=== PATIENT | male | born 1935 | race Caucasian/White ===

== ENCOUNTER 2016-10-05 14:18 | Emergency (ER) | payer MEDICARE ==
[2016-10-05 16:05] VITALS: RESP 16
--- NOTE | 2016-10-05 16:15 | ED ---
General Adult HPI - General Chief complaint: Extremity Injury, Lower Stated complaint: POSS BLOODCLOT RT LEG Time Seen by Provider: 10/05/16 15:18 Source: patient, RN notes reviewed, old records reviewed Mode of arrival: ambulatory Limitations: no limitations - History of Present Illness Initial comments: This is an 81-year-old man to the ER for evaluation. The patient Marcia dose of right lower extremity pain and swelling. Patient was seen in the emergency center urgent care prior to arrival to ER. Patient states he noted swelling for about 3 days with pain increased pain and swelling today. No history of DVT - Related Data Home Medications Medication Instructions Recorded Confirmed Albuterol Sulfate [Proair Hfa] 2 puff INHALATION RT-Q6H PRN 07/10/15 10/05/16 Simvastatin [Zocor] 40 mg PO DAILY 07/10/15 10/05/16 Ipratropium-Albuterol Nebulize 3 ml INHALATION RT-QID 07/11/15 10/05/16 [Duoneb 0.5 mg-3 mg/3 ml Soln] Fluticasone/Vilanterol [Breo 1 puff INHALATION RT-DAILY 10/05/16 10/05/16 Ellipta 200-25 Mcg INH] Lisinopril/Hydrochlorothiazide 1 tab PO DAILY 10/05/16 10/05/16 [Zestoretic 20-12.5 mg Tablet] predniSONE 5 mg PO DAILY 10/05/16 10/05/16 Previous Rx's Medication Instructions Recorded Apixaban [Eliquis] 5 mg PO BID #28 tab 10/05/16 Apixaban [Eliquis] 5 mg PO DAILY #30 tablet 10/05/16 Allergies Allergy/AdvReac Type Severity Reaction Status Date / Time No Known Allergies Allergy Verified 10/05/16 16:14 Review of Systems ROS Statement: Those systems with pertinent positive or pertinent negative responses have been documented in the HPI. ROS Other: All systems not noted in ROS Statement are negative. Past Medical History Past Medical History: COPD, Hearing Disorder / Deafness, Hyperlipidemia, Osteoarthritis (OA), Pneumonia Additional Past Medical History / Comment(s): 07/15/15 Pt presented to [facility] ER via EMS with having started about 2 hours before presentation some L sided chest pain. He thought it felt like heart burn so he took tums without relief. He called EMS and pain subsided. Pain then returned and EMS gave NTG with relief. Pt was wheezing and having some PAPO. He is being admitted with clinical impression of unstable angina pectoris, renal insufficiency, elevated D -dimer and pancreatitis. Pt was recently admitted to [facility] on 07/10/15 with acute exacerbation COPD, purulent tracheobronchitis, chronic bronchitis. Other HX: hard of hearing in left ear, OA, back pain, pneumonia 2010, recent home O2 at 2L/NC. History of Any Multi-Drug Resistant Organisms: None Reported Past Surgical History: Tonsillectomy Additional Past Surgical History / Comment(s): vasectomy Past Anesthesia/Blood Transfusion Reactions: No Reported Reaction Past Psychological History: No Psychological Hx Reported Additional Psychological History / Comment(s): Pt resides with his spouse. He has a nebulizer. He just had home O2 delivered last nite and has been wearing it on and off at 2L/NC Smoking Status: Former smoker Past Alcohol Use History: Occasional Additional Past Alcohol Use History / Comment(s): Pt started smoking in 1954 and quit in 1999. He at one time was smoking 2-3 ppd. Past Drug Use History: None Reported - Past Family History Father Family Medical History: Cancer Additional Family Medical History / Comment(s): cancer. client reported father had scoliosis. Mother Additional Family Medical History / Comment(s): mother . unknown history General Exam Limitations: no limitations General appearance: alert, in no apparent distress Head exam: Present: atraumatic, normocephalic, normal inspection Eye exam: Present: normal appearance, PERRL, EOMI. Absent: scleral icterus, conjunctival injection, periorbital swelling ENT exam: Present: normal exam, mucous membranes moist Neck exam: Present: normal inspection. Absent: tenderness, meningismus, lymphadenopathy Respiratory exam: Present: normal lung sounds bilaterally. Absent: respiratory distress, wheezes, rales, rhonchi, stridor Cardiovascular Exam: Present: regular rate, normal rhythm, normal heart sounds. Absent: systolic murmur, diastolic murmur, rubs, gallop, clicks GI/Abdominal exam: Present: soft, normal bowel sounds. Absent: distended, tenderness, guarding, rebound, rigid Extremities exam: Present: normal inspection, full ROM, normal capillary refill. Absent: tenderness, pedal edema, joint swelling, calf tenderness Back exam: Present: normal inspection Neurological exam: Present: alert, oriented X3, CN II-XII intact Psychiatric exam: Present: normal affect, normal mood Skin exam: Present: warm, dry, intact, normal color. Absent: rash Course Vital Signs 10/05/16 15:59 Temperature 97.6 F Pulse Rate 60 Respiratory 16 Rate Blood Pressure 136/60 O2 Sat by Pulse 98 Oximetry Medical Decision Making - Medical Decision Making A 1 Amber with positive DVT, patient given Vince Piper, discharge: Jossie to follow up with primary care, patient is understanding and agreeable - Radiology Data Radiology results: report reviewed (Ultrasound is positive for DVT), image reviewed Disposition Clinical Impression: Right leg DVT Disposition: HOME SELF-CARE Condition: Good Instructions: Deep Venous Thrombosis (ED) Prescriptions: Apixaban [Eliquis] 5 mg PO BID #28 tab Apixaban [Eliquis] 5 mg PO DAILY #30 tablet Referrals: Lobo Elizabeth MD [Primary Care Provider] - 1-2 days
--- NOTE | 2016-10-05 16:37 | US ---
EXAMINATION TYPE: US venous doppler duplex LE RT DATE OF EXAM: 10/05/2016 4:31 PM COMPARISON: Previous study CLINICAL HISTORY: Pain. Tenderness right lower leg SIDE PERFORMED: Right VESSELS IMAGED: External Iliac Vein (EIV) Common Femoral Vein Deep Femoral Vein Greater Saphenous Vein * Femoral Vein Popliteal Vein Small Saphenous Vein * Proximal Calf Veins (* superficial vessels) Right Leg: ++Positive for DVT right lower popliteal vein No popliteal fossa lesion was identified. IMPRESSION:
[2016-10-05] MEDS ORDERED: APIXABAN 5 MG TAB PO STA (17:10)
[2016-10-05 17:58] VITALS: BP 173/82; PULSE 62; TEMP 97.8
== END 2016-10-05 17:55 | disposition home or self-care (01) ==
LOC: EC 14:18
DX: I82.431 Acute embolism and thrombosis of right popliteal vein (principal); E78.5 Hyperlipidemia, unspecified; J44.9 Chronic obstructive pulmonary disease, unspecified; Z87.891 Personal history of nicotine dependence; M19.90 Unspecified osteoarthritis, unspecified site; Z79.51 Long term (current) use of inhaled steroids; Z79.899 Other long term (current) drug therapy; Z79.52 Long term (current) use of systemic steroids; Z87.01 Personal history of pneumonia (recurrent)
CPT/HCPCS: 99284

== ENCOUNTER 2016-12-01 09:18 | Emergency (ER) | payer MEDICARE ==
[2016-12-01 09:27] VITALS: TEMP 97.2
--- NOTE | 2016-12-01 10:19 | ED ---
General Adult HPI - General Chief complaint: Urogenital Stated complaint: hematuria Time Seen by Provider: 12/01/16 09:45 Source: patient, family, RN notes reviewed Mode of arrival: ambulatory Limitations: no limitations - History of Present Illness Initial comments: Patient is a pleasant 81-year-old male presenting to the emergency Department with hematuria. Patient had an episode last week. Patient had 3 episodes prior to arrival this morning and another one while in the emergency department. Patient is on elquis for a blood clot in the right leg. This was started almost 2 months ago. No chest pain or difficulty in breathing. No other areas of bleeding. No dysuria. No pelvic pain. - Related Data Home Medications Medication Instructions Recorded Confirmed Albuterol Sulfate [Proair Hfa] 2 puff INHALATION RT-Q6H PRN 07/10/15 12/01/16 Simvastatin [Zocor] 40 mg PO DAILY 07/10/15 12/01/16 Ipratropium-Albuterol Nebulize 3 ml INHALATION RT-QID 07/11/15 12/01/16 [Duoneb 0.5 mg-3 mg/3 ml Soln] Fluticasone/Vilanterol [Breo 1 puff INHALATION RT-DAILY 10/05/16 12/01/16 Ellipta 200-25 Mcg INH] Lisinopril/Hydrochlorothiazide 1 tab PO DAILY 10/05/16 12/01/16 [Zestoretic 20-12.5 mg Tablet] predniSONE 5 mg PO DAILY 10/05/16 12/01/16 Previous Rx's Medication Instructions Recorded Apixaban [Eliquis] 5 mg PO DAILY #30 tablet 10/05/16 Cephalexin [Keflex] 500 mg PO QID #28 cap 12/01/16 Allergies Allergy/AdvReac Type Severity Reaction Status Date / Time No Known Allergies Allergy Verified 12/01/16 11:24 Review of Systems ROS Statement: Those systems with pertinent positive or pertinent negative responses have been documented in the HPI. ROS Other: All systems not noted in ROS Statement are negative. Constitutional: Denies: fever, chills Eyes: Denies: eye pain ENT: Denies: ear pain Respiratory: Denies: cough Cardiovascular: Denies: chest pain Endocrine: Denies: fatigue Gastrointestinal: Denies: abdominal pain Genitourinary: Reports: hematuria. Denies: dysuria Musculoskeletal: Denies: back pain Skin: Denies: rash Neurological: Denies: weakness Past Medical History Past Medical History: COPD, Deep Vein Thrombosis (DVT), Hearing Disorder / Deafness, Hyperlipidemia, Osteoarthritis (OA), Pneumonia Additional Past Medical History / Comment(s): 07/15/15 Pt presented to [facility] ER via EMS with having started about 2 hours before presentation some L sided chest pain. He thought it felt like heart burn so he took tums without relief. He called EMS and pain subsided. Pain then returned and EMS gave NTG with relief. Pt was wheezing and having some PAPO. He is being admitted with clinical impression of unstable angina pectoris, renal insufficiency, elevated D -dimer and pancreatitis. Pt was recently admitted to [facility] on 07/10/15 with acute exacerbation COPD, purulent tracheobronchitis, chronic bronchitis. Other HX: hard of hearing in left ear, OA, back pain, pneumonia 2010, recent home O2 at 2L/NC. History of Any Multi-Drug Resistant Organisms: None Reported Past Surgical History: Tonsillectomy Additional Past Surgical History / Comment(s): vasectomy Past Anesthesia/Blood Transfusion Reactions: No Reported Reaction Past Psychological History: No Psychological Hx Reported Additional Psychological History / Comment(s): Pt resides with his spouse. He has a nebulizer. He just had home O2 delivered last nite and has been wearing it on and off at 2L/NC Smoking Status: Former smoker Past Alcohol Use History: Occasional Additional Past Alcohol Use History / Comment(s): Pt started smoking in 1955 and quit in 1999. He at one time was smoking 2-3 ppd. Past Drug Use History: None Reported - Past Family History Father Family Medical History: Cancer Additional Family Medical History / Comment(s): cancer. client reported father had scoliosis. Mother Additional Family Medical History / Comment(s): mother . unknown history General Exam Limitations: no limitations General appearance: alert, in no apparent distress Head exam: Present: atraumatic Eye exam: Present: normal appearance, PERRL ENT exam: Present: normal oropharynx Neck exam: Present: normal inspection Respiratory exam: Present: normal lung sounds bilaterally Cardiovascular Exam: Present: regular rate, normal rhythm Expanded Peripheral pulses: 2+: Dorsalis Pedis (R), Dorsalis Pedis (L) GI/Abdominal exam: Present: soft. Absent: tenderness exam: Present: normal inspection, other (Small easily reducible left inguinal hernia). Absent: testicular tenderness, urethral discharge, scrotal swelling Extremities exam: Present: normal inspection. Absent: pedal edema, calf tenderness Neurological exam: Present: alert Psychiatric exam: Present: normal affect, normal mood Skin exam: Present: normal color Course Vital Signs 12/01/16 09:24 Temperature 97.2 F L Pulse Rate 83 Respiratory 18 Rate Blood Pressure 185/73 O2 Sat by Pulse 96 Oximetry Medical Decision Making - Medical Decision Making Patient reevaluated and resting comfortably in bed. Patient symptom-free. Patient and family updated on results. Case discussed in detail with Dr. Vuong , covering for Dr. Elizabeth. He does feel patient can be safely discharged. Recommends holding eliquis until follow-up on Saturday with urology and primary care physician. Messages will be left for primary care physician and urology for follow-up. - Lab Data Result diagrams: 12/01/16 10:23 12/01/16 10:23 Lab Results 12/01/16 12/01/16 12/01/16 Range/Units 10:23 10:23 10:23 WBC 7.2 (3.8-10.6) k/uL RBC 3.76 L (4.30-5.90) m/uL Hgb 11.5 L (13.0-17.5) gm/dL Hct 34.9 L (39.0-53.0) % MCV 92.9 (80.0-100.0) fL MCH 30.6 (25.0-35.0) pg MCHC 32.9 (31.0-37.0) g/dL RDW 14.6 (11.5-15.5) % Plt Count 366 (150-450) k/uL Neutrophils % 74 % Lymphocytes % 11 % Monocytes % 5 % Eosinophils % 8 % Basophils % 1 % Neutrophils # 5.3 (1.3-7.7) k/uL Lymphocytes # 0.8 L (1.0-4.8) k/uL Monocytes # 0.4 (0-1.0) k/uL Eosinophils # 0.6 (0-0.7) k/uL Basophils # 0.1 (0-0.2) k/uL PT 9.9 (9.0-12.0) sec INR 1.0 (<1.1) APTT 23.8 (22.0-30.0) sec Sodium 141 (137-145) mmol/L Potassium 4.5 (3.5-5.1) mmol/L Chloride 105 (98-107) mmol/L Carbon Dioxide 27 (22-30) mmol/L Anion Gap 9 mmol/L BUN 30 H (9-20) mg/dL Creatinine 1.12 (0.66-1.25) mg/dL Est GFR (MDRD) Af Amer >60 (>60 ml/min/1.73 sqM) Est GFR (MDRD) Non-Af >60 (>60 ml/min/1.73 sqM) Glucose 84 (74-99) mg/dL Calcium 9.7 (8.4-10.2) mg/dL Total Bilirubin 0.5 (0.2-1.3) mg/dL AST 25 (17-59) U/L ALT 20 L (21-72) U/L Alkaline Phosphatase 61 (38-126) U/L Total Protein 7.0 (6.3-8.2) g/dL Albumin 4.0 (3.5-5.0) g/dL Urine Color Urine Appearance (Clear) Urine RBC (0-5) /hpf Urine WBC (0-5) /hpf 12/01/16 Range/Units 10:23 WBC (3.8-10.6) k/uL RBC (4.30-5.90) m/uL Hgb (13.0-17.5) gm/dL Hct (39.0-53.0) % MCV (80.0-100.0) fL MCH (25.0-35.0) pg MCHC (31.0-37.0) g/dL RDW (11.5-15.5) % Plt Count (150-450) k/uL Neutrophils % % Lymphocytes % % Monocytes % % Eosinophils % % Basophils % % Neutrophils # (1.3-7.7) k/uL Lymphocytes # (1.0-4.8) k/uL Monocytes # (0-1.0) k/uL Eosinophils # (0-0.7) k/uL Basophils # (0-0.2) k/uL PT (9.0-12.0) sec INR (<1.1) APTT (22.0-30.0) sec Sodium (137-145) mmol/L Potassium (3.5-5.1) mmol/L Chloride (98-107) mmol/L Carbon Dioxide (22-30) mmol/L Anion Gap mmol/L BUN (9-20) mg/dL Creatinine (0.66-1.25) mg/dL Est GFR (MDRD) Af Amer (>60 ml/min/1.73 sqM) Est GFR (MDRD) Non-Af (>60 ml/min/1.73 sqM) Glucose (74-99) mg/dL Calcium (8.4-10.2) mg/dL Total Bilirubin (0.2-1.3) mg/dL AST (17-59) U/L ALT (21-72) U/L Alkaline Phosphatase (38-126) U/L Total Protein (6.3-8.2) g/dL Albumin (3.5-5.0) g/dL Urine Color Red Urine Appearance Bloody (Clear) Urine RBC >182 H (0-5) /hpf Urine WBC 65 H (0-5) /hpf - Radiology Data Radiology results: report reviewed (Ultrasound leg shows DVT in the popliteal vein appears improved.), image reviewed (KUB shows no acute process) Disposition Clinical Impression: Hematuria Disposition: HOME SELF-CARE Condition: Stable Instructions: Hematuria (ED) Additional Instructions: Please hold Eliquis until follow-up on Saturday. Please follow-up Saturday with both urology and Dr. Elizabeth. Return for increased bleeding, shortness of breath or shortness of breath with exertion, weakness, worsening symptoms or other concerns. Prescriptions: Cephalexin [Keflex] 500 mg PO QID #28 cap Referrals: Lobo Elizabeth MD [Primary Care Provider] - 1-2 days Kirill Su MD [STAFF PHYSICIAN] - 1-2 days Time of Disposition: 11:31
[2016-12-01 10:38] LABS: Basophils # (A) 0.1 k/uL (0-0.2); Basophils % (A) 1 %; CH 29.6; Eosinophils # (A) 0.6 k/uL (0-0.7); Eosinophils % (A) 8 %; HCT 34.9 % (39.0-53.0); HDW 2.45; HGB 11.5 gm/dL (13.0-17.5); Luc # (Auto) 0.08; Luc % (Auto) 1; Lymphocytes # (A) 0.8 k/uL (1.0-4.8); Lymphocytes % (A) 11 %; MCH 30.6 pg (25.0-35.0); MCHC 32.9 g/dL (31.0-37.0); MCV 92.9 fL (80.0-100.0); Mean Platelet Volume 6.5; Monocytes # (A) 0.4 k/uL (0-1.0); Monocytes % (A) 5 %; Neutrophils # (A) 5.3 k/uL (1.3-7.7); Neutrophils % (A) 74 %; RBC 3.76 m/uL (4.30-5.90); RDW 14.6 % (11.5-15.5); WBC 7.2 k/uL (3.8-10.6); WBC (Perox) 7.89
[2016-12-01 10:43] LABS: Partial Thromboplastin Time 23.8 sec (22.0-30.0); Prothrombin Time 9.9 sec (9.0-12.0)
[2016-12-01 10:44] LABS: ALT 20 U/L (21-72); AST 25 U/L (17-59); Alkaline Phosphatase 61 U/L (38-126); Anion Gap 9 mmol/L; Blood Urea Nitrogen 30 mg/dL (9-20); Calcium 9.7 mg/dL (8.4-10.2); Carbon Dioxide 27 mmol/L (22-30); Chloride 105 mmol/L (98-107); Glucose 84 mg/dL (74-99); Non-African American GFR(MDRD) >60 (>60 ml/min/1.73 sqM); Particle Count 87340; Potassium 4.5 mmol/L (3.5-5.1); RBC,Urine >182 /hpf (0-5); Sodium 141 mmol/L (137-145); Total Bilirubin 0.5 mg/dL (0.2-1.3); WBC,Urine 65 /hpf (0-5)
[2016-12-01 10:45] LABS: Appearance,Urine Bloody (Clear); UA Billing (MACRO vs. MICRO) MICRO
--- NOTE | 2016-12-01 11:04 | XR ---
Abdomen HISTORY: Gross hematuria Frontal view of the abdomen on 2 images correlated to previous of 16 October 2010 No significant interval change is evident. 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 No evident bowel obstruction or pneumoperitoneum. There is a levoscoliosis of the m id lumbar spine. No pathologic calcification is evident but technique is somewhat limited. Calcificat ions within the pelvis may be vascular. IMPRESSION: No acute abnormalities evident
--- NOTE | 2016-12-01 11:07 | US ---
EXAMINATION TYPE: US venous doppler duplex LE RT DATE OF EXAM: 12/01/2016 10:42 AM COMPARISON: Previous exam 05 October 2016 CLINICAL HISTORY: dvt, swelling. Prior DVT right leg 10/05/16, patient on blood thinner SIDE PERFORMED: right TECHNIQUE: The lower extremity deep venous system is examined utilizing real time linear array sonog renetta with graded compression, doppler sonography and color-flow sonography. VESSELS IMAGED: External Iliac Vein (EIV) Common Femoral Vein Deep Femoral Vein Greater Saphenous Vein * Femoral Vein Popliteal Vein Small Saphenous Vein * Proximal Calf Veins (* superficial vessels) Popliteal vein appears somewhat less distended. Right Leg: Deep venous thrombosis right popliteal vein may be somewhat improved. Some low-level internal echoes persists within the popliteal vein although there is some color flow, IMPRESSION: Grayscale, color doppler, spectral doppler imaging performed of the deep veins of the lo wer extremities. There is normal flow, compressibility, vascular waveforms bilaterally. Deep venous thrombosis popliteal vein appears somewhat improved.
[2016-12-01 11:44] VITALS: BP 138/74; PULSE 76; RESP 16
== END 2016-12-01 11:44 | disposition home or self-care (01) ==
LOC: EC 09:18
DX: R31.9 Hematuria, unspecified (principal); J44.9 Chronic obstructive pulmonary disease, unspecified; E78.5 Hyperlipidemia, unspecified; M19.90 Unspecified osteoarthritis, unspecified site; H91.90 Unspecified hearing loss, unspecified ear; Z87.891 Personal history of nicotine dependence; Z86.718 Personal history of other venous thrombosis and embolism; Z79.51 Long term (current) use of inhaled steroids; Z79.52 Long term (current) use of systemic steroids; Z79.899 Other long term (current) drug therapy
CPT/HCPCS: 36415; 74000; 80053; 81001; 85025; 85610; 85730; 87086; 99284

== ENCOUNTER → 2016-12-26 | Outpatient (CLI) | payer MEDICARE ==
[2016-12-26 14:54] LABS: Blood Urea Nitrogen 34 mg/dL (9-20); Non-African American GFR(MDRD) 60 (>60 ml/min/1.73 sqM)
--- NOTE | 2016-12-26 16:06 | CT ---
EXAMINATION TYPE: CT urogram wo/w con DATE OF EXAM: 12/26/2016 COMPARISON: NONE HISTORY: Hematuria for [address] DLP: 995.6 mGycm, Automated Exposure Control for Dose Reduction was Utilized. CONTRAST: CT scan of the abdomen and pelvis is performed without oral and without and with IV Contrast, patient injected with 100 mL of Visipaque 320. Urogram protocol with Three-D reconstructed images created on independent workstation and reviewed FINDINGS: KUB: Noncontrast images show no renal calculi bilaterally. Postcontrast images show symmetric cortic al medullary uptake and excretion from both kidneys without evidence of concerning solid or cystic re nal mass or hydronephrosis bilaterally. 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 LUNG BASES: Mild emphysematous change in lung bases is felt present. There is posterior left basilar scarring. LIVER/GB: No significant abnormality is appreciated. PANCREAS: No significant abnormality is seen. SPLEEN: No significant abnormality is seen. ADRENALS: No significant abnormality is seen. KIDNEYS: No significant abnormality is seen. BOWEL: Sigmoid colonic diverticulosis is present. No suspicious bowel dilatation currently. PROSTATE/SEMINAL VESICLES: Central zone calcification is seen in normal size prostate gland. LYMPH NODES: No greater than 1cm abdominal or pelvic lymph nodes are appreciated. OSSEOUS STRUCTURES: Osseous structures are demineralized. Levoconvex scoliosis centered at L3 level i s seen. There is straightening of lumbar spine. There is moderate to severe multilevel disc space nida rowing and vacuum disc phenomenon with moderate to severe multilevel anterior and lateral spurring. OTHER: There is moderate size left inguinal hernia containing fat portion of sigmoid colon seen best image 73 series 7 and coronal image 51. IMPRESSION: 1. A 4.1 x 2.2 cm posterior right lateral bladder wall mass strongly suspicious for urothelial carcin richard. Cystoscopy for tissue confirmation advised. 2. Note is made of left inguinal hernia containing portion of sigmoid colon. No bowel obstruction cur rently.
== END | disposition home or self-care (01) ==
LOC: RADCTMAIN 14:23
PROVIDERS: ATTEND Urology
DX: K40.90 Unilateral inguinal hernia, without obstruction or gangrene, not specified as recurrent (principal); N32.89 Other specified disorders of bladder
CPT/HCPCS: 82565; 84520; 74178; 36415; 74400; Q9967

== ENCOUNTER 2017-06-06 08:20 | Emergency (ER) | payer MEDICARE ==
[2017-06-06 08:36] VITALS: TEMP 97.9
[2017-06-06] MEDS ORDERED: MORPHINE SULFATE 2 MG/ML SYRINGE IVP ONE (08:59)
[2017-06-06] MEDS ORDERED: ONDANSETRON 4 MG/2 ML VIAL IVP STA (08:59)
[2017-06-06] MEDS ORDERED: IPRATROPIUM-ALBUTEROL 3 ML NEB INHALATION STA (09:00)
--- NOTE | 2017-06-06 09:01 | ED ---
General Adult HPI - General Chief complaint: Neck Pain/Injury Stated complaint: NECK PAIN Time Seen by Provider: 06/06/17 08:49 Source: patient, family, RN notes reviewed Mode of arrival: wheelchair Limitations: no limitations - History of Present Illness Initial comments: 82-year-old male presents emergency Department with chief complaint of left- sided neck pain. Patient states his been bothering him for last 2 days progressively getting worse. Patient states he had no trauma states he just felt sore neck but states this is the worst ever been. Patient states she took some Raymond this morning with no relief of the pain. Patient denies headache, dizziness, focal weakness. Patient states she has no pain with range of motion of his upper extremities. Patient states she does have COPD and he states she' s had a worsening cough last few days also. He states she's a tough time breathing and his cough up. Patient denies any nausea, vomiting diarrhea constipation. Denies fever or chills. Patient had no prior neck surgeries. - Related Data Home Medications Medication Instructions Recorded Confirmed Albuterol Sulfate [Proair Hfa] 2 puff INHALATION RT-Q6H PRN 07/10/15 06/06/17 Simvastatin [Zocor] 40 mg PO DAILY 07/10/15 06/06/17 Ipratropium-Albuterol Nebulize 3 ml INHALATION RT-QID 07/11/15 06/06/17 [Duoneb 0.5 mg-3 mg/3 ml Soln] Fluticasone/Vilanterol [Breo 1 puff INHALATION RT-DAILY 10/05/16 06/06/17 Ellipta 200-25 Mcg INH] Lisinopril/Hydrochlorothiazide 1 tab PO DAILY 10/05/16 06/06/17 [Zestoretic 20-12.5 mg Tablet] predniSONE 5 mg PO DAILY 10/05/16 06/06/17 Tamsulosin HCl [Flomax] 0.4 mg PO DAILY 06/06/17 06/06/17 Previous Rx's Medication Instructions Recorded HYDROcodone/APAP 10-325MG [Raymond 1 tab PO Q6H PRN #20 tab 06/06/17 10-325] Meloxicam [Mobic] 7.5 mg PO DAILY #14 tab 06/06/17 Allergies Allergy/AdvReac Type Severity Reaction Status Date / Time No Known Allergies Allergy Verified 06/06/17 09:40 Review of Systems ROS Statement: Those systems with pertinent positive or pertinent negative responses have been documented in the HPI. ROS Other: All systems not noted in ROS Statement are negative. Past Medical History Past Medical History: COPD, Deep Vein Thrombosis (DVT), Hearing Disorder / Deafness, Hyperlipidemia, Osteoarthritis (OA), Pneumonia Additional Past Medical History / Comment(s): 07/15/15 Pt presented to [facility] ER via EMS with having started about 2 hours before presentation some L sided chest pain. He thought it felt like heart burn so he took tums without relief. He called EMS and pain subsided. Pain then returned and EMS gave NTG with relief. Pt was wheezing and having some PAPO. He is being admitted with clinical impression of unstable angina pectoris, renal insufficiency, elevated D -dimer and pancreatitis. Pt was recently admitted to [facility] on 07/10/15 with acute exacerbation COPD, purulent tracheobronchitis, chronic bronchitis. Other HX: hard of hearing in left ear, OA, back pain, pneumonia 2010, recent home O2 at 2L/NC. History of Any Multi-Drug Resistant Organisms: None Reported Past Surgical History: Tonsillectomy Additional Past Surgical History / Comment(s): vasectomy Past Anesthesia/Blood Transfusion Reactions: No Reported Reaction Past Psychological History: No Psychological Hx Reported Smoking Status: Former smoker Past Alcohol Use History: Occasional Past Drug Use History: None Reported - Past Family History Father Family Medical History: Cancer Additional Family Medical History / Comment(s): cancer. client reported father had scoliosis. Mother Additional Family Medical History / Comment(s): mother . unknown history General Exam Limitations: no limitations General appearance: alert, in no apparent distress Head exam: Present: atraumatic, normocephalic, normal inspection Eye exam: Present: normal appearance, PERRL, EOMI. Absent: scleral icterus, conjunctival injection, periorbital swelling ENT exam: Present: normal exam, normal oropharynx, mucous membranes moist, TM's normal bilaterally, normal external ear exam Neck exam: Present: normal inspection, tenderness (Mild tenderness over the left cervical paraspinal, trapezius region), full ROM. Absent: meningismus, lymphadenopathy Respiratory exam: Present: rales, rhonchi. Absent: normal lung sounds bilaterally, respiratory distress, wheezes, stridor Cardiovascular Exam: Present: regular rate, normal rhythm, normal heart sounds. Absent: systolic murmur, diastolic murmur, rubs, gallop, clicks Extremities exam: Present: normal inspection, full ROM, normal capillary refill. Absent: tenderness, pedal edema, joint swelling, calf tenderness Neurological exam: Present: alert, oriented X3, CN II-XII intact, reflexes normal. Absent: motor sensory deficit Course Vital Signs 06/06/17 06/06/17 06/06/17 08:34 09:11 09:19 Temperature 97.9 F Pulse Rate 85 75 80 Respiratory 20 18 Rate Blood Pressure 142/65 136/59 O2 Sat by Pulse 98 96 Oximetry 06/06/17 09:27 Temperature Pulse Rate 72 Respiratory Rate Blood Pressure O2 Sat by Pulse Oximetry EKG Findings - EKG Comments: EKG Findings:: EKG performed at 19:15 normal sinus rhythm with a rate of 74 ND 132 QRS 90 QT/QTC 382/424 Medical Decision Making - Medical Decision Making 82-year-old male presented for left sided neck pain. This pain is reproducible pain in over the left paraspinal trapezius region. Patient's x-ray shows possible arthritis biolytic changes. Patient does feel improved after pain medication here. Patient had complete workup including cardiac enzymes EKG chest x-ray labs. Labs seem to be at his normal baseline. Patient will be discharged with increase of his Raymond at this time and follow-up with Dr. Watkins [facility] neurologist. Return parameters were discussed. Patient has no focal weakness. - Lab Data Result diagrams: 06/06/17 09:00 06/06/17 09:00 Lab Results 06/06/17 06/06/17 06/06/17 Range/Units 09:00 09:00 09:00 WBC 11.4 H (3.8-10.6) k/uL RBC 3.70 L (4.30-5.90) m/uL Hgb 10.5 L (13.0-17.5) gm/dL Hct 33.0 L (39.0-53.0) % MCV 89.1 (80.0-100.0) fL MCH 28.4 (25.0-35.0) pg MCHC 31.9 (31.0-37.0) g/dL RDW 15.3 (11.5-15.5) % Plt Count 368 (150-450) k/uL Neutrophils % 79 % Lymphocytes % 8 % Monocytes % 7 % Eosinophils % 5 % Basophils % 0 % Neutrophils # 9.0 H (1.3-7.7) k/uL Lymphocytes # 0.9 L (1.0-4.8) k/uL Monocytes # 0.8 (0-1.0) k/uL Eosinophils # 0.6 (0-0.7) k/uL Basophils # 0.0 (0-0.2) k/uL PT (9.0-12.0) sec INR (<1.2) APTT (22.0-30.0) sec Sodium 135 L (137-145) mmol/L Potassium 4.3 (3.5-5.1) mmol/L Chloride 103 (98-107) mmol/L Carbon Dioxide 26 (22-30) mmol/L Anion Gap 6 mmol/L BUN 28 H (9-20) mg/dL Creatinine 1.10 (0.66-1.25) mg/dL Est GFR (MDRD) Af Amer >60 (>60 ml/min/1.73 sqM) Est GFR (MDRD) Non-Af >60 (>60 ml/min/1.73 sqM) Glucose 117 H (74-99) mg/dL Calcium 9.1 (8.4-10.2) mg/dL Magnesium 2.0 (1.6-2.3) mg/dL Total Bilirubin 0.7 (0.2-1.3) mg/dL AST 19 (17-59) U/L ALT 28 (21-72) U/L Alkaline Phosphatase 76 (38-126) U/L Total Creatine Kinase 110 (55-170) U/L CK-MB (CK-2) 6.2 H* (0.0-2.4) ng/mL CK-MB (CK-2) Rel Index 5.6 Troponin I <0.012 (0.000-0.034) ng/mL NT-Pro-B Natriuret Pep pg/mL Total Protein 6.6 (6.3-8.2) g/dL Albumin 3.6 (3.5-5.0) g/dL 06/06/17 06/06/17 Range/Units 09:00 09:00 WBC (3.8-10.6) k/uL RBC (4.30-5.90) m/uL Hgb (13.0-17.5) gm/dL Hct (39.0-53.0) % MCV (80.0-100.0) fL MCH (25.0-35.0) pg MCHC (31.0-37.0) g/dL RDW (11.5-15.5) % Plt Count (150-450) k/uL Neutrophils % % Lymphocytes % % Monocytes % % Eosinophils % % Basophils % % Neutrophils # (1.3-7.7) k/uL Lymphocytes # (1.0-4.8) k/uL Monocytes # (0-1.0) k/uL Eosinophils # (0-0.7) k/uL Basophils # (0-0.2) k/uL PT 10.1 (9.0-12.0) sec INR 1.0 (<1.2) APTT 23.4 (22.0-30.0) sec Sodium (137-145) mmol/L Potassium (3.5-5.1) mmol/L Chloride (98-107) mmol/L Carbon Dioxide (22-30) mmol/L Anion Gap mmol/L BUN (9-20) mg/dL Creatinine (0.66-1.25) mg/dL Est GFR (MDRD) Af Amer (>60 ml/min/1.73 sqM) Est GFR (MDRD) Non-Af (>60 ml/min/1.73 sqM) Glucose (74-99) mg/dL Calcium (8.4-10.2) mg/dL Magnesium (1.6-2.3) mg/dL Total Bilirubin (0.2-1.3) mg/dL AST (17-59) U/L ALT (21-72) U/L Alkaline Phosphatase (38-126) U/L Total Creatine Kinase (55-170) U/L CK-MB (CK-2) (0.0-2.4) ng/mL CK-MB (CK-2) Rel Index Troponin I (0.000-0.034) ng/mL NT-Pro-B Natriuret Pep 212 pg/mL Total Protein (6.3-8.2) g/dL Albumin (3.5-5.0) g/dL Disposition Clinical Impression: Neck pain Disposition: HOME SELF-CARE Condition: Stable Instructions: Cervical Strain (ED) Additional Instructions: Please return to the Emergency Department if symptoms worsen or any other concerns. Prescriptions: HYDROcodone/APAP 10-325MG [Raymond 10-325] 1 tab PO Q6H PRN #20 tab PRN Reason: pain Meloxicam [Mobic] 7.5 mg PO DAILY #14 tab Referrals: Lobo Elizabeth MD [Primary Care Provider] - 1-2 days Time of Disposition: 11:03
[2017-06-06 09:37] LABS: Basophils % (A) 0 %; CHCM 31.6; Eosinophils # (A) 0.6 k/uL (0-0.7); Eosinophils % (A) 5 %; HDW 2.34; HGB 10.5 gm/dL (13.0-17.5); Luc # (Auto) 0.08; Luc % (Auto) 1; Lymphocytes # (A) 0.9 k/uL (1.0-4.8); Lymphocytes % (A) 8 %; MCH 28.4 pg (25.0-35.0); MCHC 31.9 g/dL (31.0-37.0); MCV 89.1 fL (80.0-100.0); Mean Platelet Volume 7.2; Monocytes # (A) 0.8 k/uL (0-1.0); Monocytes % (A) 7 %; Neutrophils % (A) 79 %; RDW 15.3 % (11.5-15.5); WBC 11.4 k/uL (3.8-10.6); WBC (Perox) 11.82
[2017-06-06 09:50] LABS: ALT 28 U/L (21-72); AST 19 U/L (17-59); Alkaline Phosphatase 76 U/L (38-126); Anion Gap 6 mmol/L; Blood Urea Nitrogen 28 mg/dL (9-20); Calcium 9.1 mg/dL (8.4-10.2); Carbon Dioxide 26 mmol/L (22-30); Chloride 103 mmol/L (98-107); Glucose 117 mg/dL (74-99); Non-African American GFR(MDRD) >60 (>60 ml/min/1.73 sqM); Potassium 4.3 mmol/L (3.5-5.1); Sodium 135 mmol/L (137-145); Total Bilirubin 0.7 mg/dL (0.2-1.3); Total Protein 6.6 g/dL (6.3-8.2)
[2017-06-06 10:01] LABS: Creatine Kinase 110 U/L (55-170)
--- NOTE | 2017-06-06 10:03 | XR ---
EXAMINATION TYPE: XR chest 2V DATE OF EXAM: 06/06/2017 COMPARISON: Chest x-ray July 15, 2015. CTA chest July 18, 2015 HISTORY: Difficulty in breathing, history of COPD TECHNIQUE: Frontal and lateral views of the chest are obtained. FINDINGS: There is chronic emphysematous change redemonstrated There is no focal air space opacity, p leural effusion, or pneumothorax seen. The cardiac silhouette size is within normal limits. The os seous structures are intact. IMPRESSION: Chronic emphysematous change without acute pulmonary process.
[2017-06-06 10:04] LABS: Partial Thromboplastin Time 23.4 sec (22.0-30.0); Prothrombin Time 10.1 sec (9.0-12.0)
--- NOTE | 2017-06-06 10:06 | XR ---
EXAMINATION TYPE: XR cervical spine comp DATE OF EXAM: 06/06/2017 TECHNIQUE: Frontal, lateral, oblique, swimmers, and open mouth view of the cervical spine are obtaine d. HISTORY: Pain left sided chronic neck pain COMPARISON: None FINDINGS: The cervical spine is visualized in its entirety from C1 thru the top of T1 level, there i s grade 1 retrolisthesis of C5 on C6 without evidence of acute fracture or dislocation. The pre-vert ebral soft tissue appears within normal limits. The C1-C2 articulation is within normal limits on th e open mouth view. Vertebral body heights are maintained. There is moderate to severe spurring and disc space narrowing C5-C6 level. There is mild disc space narrowing C4-C5 and C6-C7 levels The oblique images show neural foraminal narrowing bilaterally C5-C6 level due to marginal spurring and to lesser degree at C6-C7 l evel. There is calcification bilateral carotid bulbs more prominent in the left neck. Consider noneme rgent carotid ultrasound follow-up. IMPRESSION: No acute fracture or dislocation is seen in the cervical spine. Spondylolisthesis with a ssociated moderate to advanced degenerative changes C5-C6 level.
[2017-06-06 10:14] LABS: Troponin I <0.012 ng/mL (0.000-0.034)
[2017-06-06 10:16] LABS: Creatine Kinase MB 6.2 ng/mL (0.0-2.4)
[2017-06-06] MEDS ORDERED: HYDROmorphone 0.5 MG/0.5 ML SYRINGE IVP STA (10:36)
[2017-06-06 11:45] VITALS: BP 136/63; PULSE 79; RESP 16
== END 2017-06-06 11:43 | disposition home or self-care (01) ==
LOC: EC 08:20
DX: M54.2 Cervicalgia (principal); R05 Cough; J44.9 Chronic obstructive pulmonary disease, unspecified; E78.5 Hyperlipidemia, unspecified; M19.90 Unspecified osteoarthritis, unspecified site; H91.90 Unspecified hearing loss, unspecified ear; Z86.718 Personal history of other venous thrombosis and embolism; Z87.891 Personal history of nicotine dependence; Z79.51 Long term (current) use of inhaled steroids; Z79.52 Long term (current) use of systemic steroids; Z79.899 Other long term (current) drug therapy
CPT/HCPCS: 36415; 71020; 72050; 80053; 82550; 82553; 83735; 83880; 84484; 85025; 85610; 85730; 93005; 94640; 96374; 96375; 99284

== ENCOUNTER 2017-07-22 14:11 | Inpatient (IN) | payer MEDICARE ==
[2017-07-22] MEDS ORDERED: methylPREDNISolone SOD SUCCI 125 MG/2 ML VIAL IV STA (14:46)
[2017-07-22] MEDS ORDERED: ALBUTEROL NEBULIZED 2.5 MG/3 ML INHALATION STA (14:46)
--- NOTE | 2017-07-22 14:48 | ED ---
General Adult HPI - General Chief complaint: Shortness of Breath Stated complaint: SOB Time Seen by Provider: 07/22/17 14:20 Source: patient, RN notes reviewed Mode of arrival: wheelchair Limitations: no limitations, physical limitation - History of Present Illness Initial comments: This is an 82-year-old male who presents emergency Department complaining of difficulty breathing. Patient states been going on for 2-3 days. Patient states he believes this is COPD. Patient states he has an increased cough but not a lot of production. Patient denies any palpitations. Patient denies any chest pain. Patient denies any fever chills. Patient denies being lightheaded dizzy or having any near syncopal episodes. Patient denies abdominal pain patient denies nausea vomiting diarrhea. Patient denies any dysuria hematuria urinary frequency. Patient denies any recent injury or trauma. - Related Data Home Medications Medication Instructions Recorded Confirmed Albuterol Sulfate [Proair Hfa] 2 puff INHALATION RT-Q6H PRN 07/10/15 07/22/17 Simvastatin [Zocor] 40 mg PO DAILY 07/10/15 07/22/17 Ipratropium-Albuterol Nebulize 3 ml INHALATION RT-QID 07/11/15 07/22/17 [Duoneb 0.5 mg-3 mg/3 ml Soln] Fluticasone/Vilanterol [Breo 1 puff INHALATION RT-DAILY 10/05/16 07/22/17 Ellipta 200-25 Mcg INH] predniSONE 5 mg PO DAILY 10/05/16 07/22/17 Tamsulosin HCl [Flomax] 0.4 mg PO BID 06/06/17 07/22/17 Lisinopril [Zestril] 10 mg PO DAILY 07/22/17 07/22/17 Sulfamethox-Tmp 800-160Mg [Bactrim 1 tab PO Q12HR 07/22/17 07/22/17 DS 800-160 mg] Allergies Allergy/AdvReac Type Severity Reaction Status Date / Time No Known Allergies Allergy Verified 07/22/17 14:39 Review of Systems ROS Statement: Those systems with pertinent positive or pertinent negative responses have been documented in the HPI. ROS Other: All systems not noted in ROS Statement are negative. Past Medical History Past Medical History: COPD, Deep Vein Thrombosis (DVT), Hearing Disorder / Deafness, Hyperlipidemia, Osteoarthritis (OA), Pneumonia Additional Past Medical History / Comment(s): 07/15/15 Pt presented to [facility] ER via EMS with having started about 2 hours before presentation some L sided chest pain. He thought it felt like heart burn so he took tums without relief. He called EMS and pain subsided. Pain then returned and EMS gave NTG with relief. Pt was wheezing and having some PAPO. He is being admitted with clinical impression of unstable angina pectoris, renal insufficiency, elevated D -dimer and pancreatitis. Pt was recently admitted to [facility] on 07/10/15 with acute exacerbation COPD, purulent tracheobronchitis, chronic bronchitis. Other HX: hard of hearing in left ear, OA, back pain, pneumonia 2010, recent home O2 at 2L/NC. History of Any Multi-Drug Resistant Organisms: None Reported Past Surgical History: Tonsillectomy Additional Past Surgical History / Comment(s): vasectomy Past Anesthesia/Blood Transfusion Reactions: No Reported Reaction Past Psychological History: No Psychological Hx Reported Smoking Status: Former smoker Past Alcohol Use History: Occasional Past Drug Use History: None Reported - Past Family History Father Family Medical History: Cancer Additional Family Medical History / Comment(s): cancer. client reported father had scoliosis. Mother Additional Family Medical History / Comment(s): mother . unknown history General Exam - General Exam Comments Initial Comments: GENERAL: Patient is well-developed and well-nourished. Patient is nontoxic and well- hydrated and is in moderate distress. ENT: Neck is soft and supple. No significant lymphadenopathy is noted. Oropharynx is clear. Moist mucous membranes. Neck has full range of motion without eliciting any pain. EYES: The sclera were anicteric and conjunctiva were pink and moist. Extraocular movements were intact and pupils were equal round and reactive to light. Eyelids were unremarkable. PULMONARY: Extra wheezing diffusely CARDIOVASCULAR: There is a regular rate and rhythm without any murmurs gallops or rubs. ABDOMEN: Soft and nontender with normal bowel sounds. No palpable organomegaly was noted. There is no palpable pulsatile mass. SKIN: Skin is clear with no lesions or rashes and otherwise unremarkable. NEUROLOGIC: Patient is alert and oriented x3. Cranial nerves II through XII are grossly intact. Motor and sensory are also intact. Normal speech, volume and content. Symmetrical smile. MUSCULOSKELETAL: Normal extremities with adequate strength and full range of motion. No lower extremity swelling or edema. No calf tenderness. LYMPHATICS: No significant lymphadenopathy is noted PSYCHIATRIC: Normal psychiatric evaluation. Normal interpersonal interactions appears functionally intact in deals appropriately with others. No signs of depression. No signs of anxiety. Limitations: no limitations, physical limitation Course Vital Signs 07/22/17 07/22/17 07/22/17 14:19 14:40 15:07 Temperature 97.0 F L Pulse Rate 95 83 Respiratory 26 H 26 H Rate Blood Pressure 203/84 O2 Sat by Pulse 95 Oximetry 07/22/17 15:32 Temperature Pulse Rate 88 Respiratory Rate Blood Pressure O2 Sat by Pulse Oximetry Medical Decision Making - Medical Decision Making EKG shows normal sinus rhythm at 94 bpm DC interval is 136 QRS is 84 QT interval 368 QT intervals 460. Patient's EKG shows no ST segment elevation or depression or T wave abnormalities are noted. Chest x-ray showed no acute abnormality. I gave the patient 3 breathing treatments and steroids though the patient felt as though he was improved he did not really sound much better. I spoke with Dr. Elizabeth he agreed to admit the patient I admitted the patient I wrote admitting orders I continued breathing treatments and steroids on the floor. - Lab Data Result diagrams: 07/22/17 14:30 07/22/17 14:30 Lab Results 07/22/17 07/22/17 07/22/17 Range/Units 14:30 14:30 14:30 WBC 6.3 (3.8-10.6) k/uL RBC 3.78 L (4.30-5.90) m/uL Hgb 10.5 L (13.0-17.5) gm/dL Hct 33.6 L (39.0-53.0) % MCV 89.1 (80.0-100.0) fL MCH 27.7 (25.0-35.0) pg MCHC 31.1 (31.0-37.0) g/dL RDW 14.9 (11.5-15.5) % Plt Count 428 (150-450) k/uL Neutrophils % 82 % Lymphocytes % 8 % Monocytes % 7 % Eosinophils % 1 % Basophils % 1 % Neutrophils # 5.2 (1.3-7.7) k/uL Lymphocytes # 0.5 L (1.0-4.8) k/uL Monocytes # 0.4 (0-1.0) k/uL Eosinophils # 0.1 (0-0.7) k/uL Basophils # 0.0 (0-0.2) k/uL Hypochromasia Slight PT (9.0-12.0) sec INR (<1.2) APTT (22.0-30.0) sec Sodium 139 (137-145) mmol/L Potassium 5.3 H (3.5-5.1) mmol/L Chloride 102 (98-107) mmol/L Carbon Dioxide 27 (22-30) mmol/L Anion Gap 10 mmol/L BUN 28 H (9-20) mg/dL Creatinine 1.44 H (0.66-1.25) mg/dL Est GFR (MDRD) Af Amer 57 (>60 ml/min/1.73 sqM) Est GFR (MDRD) Non-Af 47 (>60 ml/min/1.73 sqM) Glucose 119 H (74-99) mg/dL Calcium 9.4 (8.4-10.2) mg/dL Magnesium 2.3 (1.6-2.3) mg/dL Total Bilirubin 0.3 (0.2-1.3) mg/dL AST 23 (17-59) U/L ALT 29 (21-72) U/L Alkaline Phosphatase 74 (38-126) U/L Total Creatine Kinase 151 (55-170) U/L CK-MB (CK-2) 8.3 H* (0.0-2.4) ng/mL CK-MB (CK-2) Rel Index 5.5 Troponin I <0.012 (0.000-0.034) ng/mL Total Protein 7.3 (6.3-8.2) g/dL Albumin 4.0 (3.5-5.0) g/dL 07/22/17 Range/Units 14:30 WBC (3.8-10.6) k/uL RBC (4.30-5.90) m/uL Hgb (13.0-17.5) gm/dL Hct (39.0-53.0) % MCV (80.0-100.0) fL MCH (25.0-35.0) pg MCHC (31.0-37.0) g/dL RDW (11.5-15.5) % Plt Count (150-450) k/uL Neutrophils % % Lymphocytes % % Monocytes % % Eosinophils % % Basophils % % Neutrophils # (1.3-7.7) k/uL Lymphocytes # (1.0-4.8) k/uL Monocytes # (0-1.0) k/uL Eosinophils # (0-0.7) k/uL Basophils # (0-0.2) k/uL Hypochromasia PT 9.5 (9.0-12.0) sec INR 1.0 (<1.2) APTT 23.4 (22.0-30.0) sec Sodium (137-145) mmol/L Potassium (3.5-5.1) mmol/L Chloride (98-107) mmol/L Carbon Dioxide (22-30) mmol/L Anion Gap mmol/L BUN (9-20) mg/dL Creatinine (0.66-1.25) mg/dL Est GFR (MDRD) Af Amer (>60 ml/min/1.73 sqM) Est GFR (MDRD) Non-Af (>60 ml/min/1.73 sqM) Glucose (74-99) mg/dL Calcium (8.4-10.2) mg/dL Magnesium (1.6-2.3) mg/dL Total Bilirubin (0.2-1.3) mg/dL AST (17-59) U/L ALT (21-72) U/L Alkaline Phosphatase (38-126) U/L Total Creatine Kinase (55-170) U/L CK-MB (CK-2) (0.0-2.4) ng/mL CK-MB (CK-2) Rel Index Troponin I (0.000-0.034) ng/mL Total Protein (6.3-8.2) g/dL Albumin (3.5-5.0) g/dL Critical Care Time Critical Care Time: Yes Total Critical Care Time: 35 Disposition Clinical Impression: COPD with acute exacerbation Disposition: ADMITTED IP TO THIS HOSP Referrals: Lobo Elizabeth MD [Primary Care Provider] - 1-2 days Time of Disposition: 16:12
[2017-07-22 15:08] LABS: Basophils % (A) 1 %; Eosinophils # (A) 0.1 k/uL (0-0.7); Eosinophils % (A) 1 %; HCT 33.6 % (39.0-53.0); HGB 10.5 gm/dL (13.0-17.5); Hypochromasia Slight; Lymphocytes # (A) 0.5 k/uL (1.0-4.8); Lymphocytes % (A) 8 %; MCH 27.7 pg (25.0-35.0); MCHC 31.1 g/dL (31.0-37.0); MCV 89.1 fL (80.0-100.0); Mean Platelet Volume 6.7; Monocytes # (A) 0.4 k/uL (0-1.0); Monocytes % (A) 7 %; Neutrophils # (A) 5.2 k/uL (1.3-7.7); Neutrophils % (A) 82 %; Platelet Count 428 k/uL (150-450); RBC 3.78 m/uL (4.30-5.90); RDW 14.9 % (11.5-15.5); WBC 6.3 k/uL (3.8-10.6)
[2017-07-22 15:19] LABS: Calcium 9.4 mg/dL (8.4-10.2); Magnesium 2.3 mg/dL (1.6-2.3); Partial Thromboplastin Time 23.4 sec (22.0-30.0); Potassium 5.3 mmol/L (3.5-5.1); Prothrombin Time 9.5 sec (9.0-12.0); Total Bilirubin 0.3 mg/dL (0.2-1.3); Total Protein 7.3 g/dL (6.3-8.2)
[2017-07-22 15:29] LABS: Creatine Kinase 151 U/L (55-170)
[2017-07-22 15:43] LABS: Troponin I <0.012 ng/mL (0.000-0.034)
[2017-07-22 15:44] LABS: Creatine Kinase MB 8.3 ng/mL (0.0-2.4)
--- NOTE | 2017-07-22 15:50 | XR ---
EXAMINATION TYPE: XR chest 2V DATE OF EXAM: 07/22/2017 COMPARISON: 06/06/2017 HISTORY: Shortness of breath TECHNIQUE: Frontal and lateral views of the chest are obtained. FINDINGS: Scattered senescent parenchymal changes noted. Hyperinflation compatible with COPD. Chronic reticulon odular density right lung base. No evidence for infiltrate. No evidence for atelectasis. Heart size is stable. Mediastinal structures are stable and grossly unremarkable. No evidence for hilar prominence. Degenerative changes dorsal spine. IMPRESSION: 1. No evidence for acute pulmonary disease.
[2017-07-22] MEDS: methylPREDNISolone SOD SUCCI 125 MG/2 ML VIAL IV SCH ×2 (18:50→23:24)
[2017-07-22 21:10] LABS: Glucose,Whole Blood 168 mg/dL (75-99)
[2017-07-22] MEDS: INSULIN ASPART 100 UNIT/ML 1 ML 10 ML VIAL SQ SCH (21:29)
[2017-07-22] MEDS: TAMSULOSIN 0.4 MG CAP.ER.24H PO SCH (21:29)
[2017-07-22] MEDS: IPRATROPIUM-ALBUTEROL 3 ML NEB INHALATION PRN (21:46)
[2017-07-23] MEDS: methylPREDNISolone SOD SUCCI 125 MG/2 ML VIAL IV SCH ×3 (05:59→17:49)
--- NOTE | 2017-07-23 07:21 | P.HPIM ---
History of Present Illness H&P Date: 07/23/17 Chief Complaint: Dyspnea This is a history of physical and 82-year-old white male with known history of hypertension who has an underlying history of COPD. He states for last several days she's becoming more dyspneic. In fact, I recently saw the patient about 2 weeks ago and he is fairly "stable." The patient states that he has had similar episodes in the past. Typically, he gets admitted for exacerbation about every year or every 6-12 months. The patient states similar symptoms. The patient is currently a nonsmoker. We will go ahead and consult pulmonology at this time. He's been placed on appropriate COPD exacerbation protocol. He is O2 dependent at this time and is holding conversation appropriately. No voiding difficulties are stated. Review of Systems Constitutional: Denies chills, Denies fever Eyes: denies blurred vision, denies pain Ears, nose, mouth and throat: Denies headache, Denies sore throat Cardiovascular: Denies chest pain, Denies shortness of breath Respiratory: Reports as per HPI, Reports dyspnea, Reports pleurisy Gastrointestinal: Denies abdominal pain, Denies diarrhea, Denies nausea, Denies vomiting Musculoskeletal: Denies myalgias Integumentary: Denies pruritus, Denies rash Neurological: Denies numbness, Denies weakness Past Medical History Past Medical History: Cancer, Chest Pain / Angina, COPD, Deep Vein Thrombosis ( DVT), Hyperlipidemia, Hypertension, Osteoarthritis (OA), Pneumonia Additional Past Medical History / Comment(s): unstable angina pectoris. COPD, purulent tracheobronchitis, chronic bronchitis. hard of hearing in left ear, OA, back pain, pneumonia 2010, home O2 at 2L/NC.prn, bladder cancer History of Any Multi-Drug Resistant Organisms: None Reported Past Surgical History: Bladder Surgery, Tonsillectomy Additional Past Surgical History / Comment(s): vasectomy Past Anesthesia/Blood Transfusion Reactions: No Reported Reaction Smoking Status: Former smoker - Past Family History Father Family Medical History: Cancer Additional Family Medical History / Comment(s): cancer. client reported father had scoliosis. Mother Additional Family Medical History / Comment(s): mother . unknown history Medications and Allergies Home Medications Medication Instructions Recorded Confirmed Type Albuterol Sulfate [Proair Hfa] 2 puff INHALATION RT-Q6H PRN 07/10/15 07/22/17 History Simvastatin [Zocor] 40 mg PO DAILY 07/10/15 07/22/17 History Ipratropium-Albuterol Nebulize 3 ml INHALATION RT-QID 07/11/15 07/22/17 History [Duoneb 0.5 mg-3 mg/3 ml Soln] Fluticasone/Vilanterol [Breo 1 puff INHALATION RT-DAILY 10/05/16 07/22/17 History Ellipta 200-25 Mcg INH] predniSONE 5 mg PO DAILY 10/05/16 07/22/17 History Tamsulosin HCl [Flomax] 0.4 mg PO BID 06/06/17 07/22/17 History Lisinopril [Zestril] 10 mg PO DAILY 07/22/17 07/22/17 History Sulfamethox-Tmp 800-160Mg [Bactrim 1 tab PO Q12HR 07/22/17 07/22/17 History DS 800-160 mg] Allergies Allergy/AdvReac Type Severity Reaction Status Date / Time No Known Allergies Allergy Verified 07/22/17 14:39 Physical Exam Vitals: Vital Signs Temp Pulse Pulse Resp BP BP Pulse Ox 07/22/17 23:00 96.3 F L 86 16 136/64 96 07/22/17 21:56 80 07/22/17 21:46 86 07/22/17 20:35 95 07/22/17 18:05 96.6 F L 100 18 148/65 93 L 07/22/17 17:43 100 18 149/68 94 L 07/22/17 16:32 92 18 141/61 94 L 07/22/17 15:32 88 07/22/17 15:07 83 07/22/17 14:40 26 H 07/22/17 14:19 97.0 F L 95 26 H 203/84 95 Intake and Output 07/22/17 07/23/17 07/23/17 22:59 06:59 14:59 Other: Voiding Method Toilet Toilet Urinal Urinal # Voids 1 1 - Constitutional General appearance: no acute distress - EENT Eyes: EOMI - Neck Neck: no lymphadenopathy - Respiratory Respiratory: bilateral: CTA - Cardiovascular Rhythm: regular Heart sounds: normal: S1, S2 - Gastrointestinal General gastrointestinal: soft, no tenderness - Integumentary Integumentary: no cellulitis - Neurologic Neurologic: CNII-XII intact - Musculoskeletal Musculoskeletal: gait normal Results CBC & Chem 7: 07/22/17 14:30 07/22/17 14:30 Labs: Abnormal Lab Results - Last 24 Hours (Table) 07/22/17 07/22/17 07/22/17 Range/Units 14:30 14:30 14:30 RBC 3.78 L (4.30-5.90) m/uL Hgb 10.5 L (13.0-17.5) gm/dL Hct 33.6 L (39.0-53.0) % Lymphocytes # 0.5 L (1.0-4.8) k/uL Potassium 5.3 H (3.5-5.1) mmol/L BUN 28 H (9-20) mg/dL Creatinine 1.44 H (0.66-1.25) mg/dL Glucose 119 H (74-99) mg/dL POC Glucose (mg/dL) (75-99) mg/dL CK-MB (CK-2) 8.3 H* (0.0-2.4) ng/mL 07/22/17 Range/Units 21:06 RBC (4.30-5.90) m/uL Hgb (13.0-17.5) gm/dL Hct (39.0-53.0) % Lymphocytes # (1.0-4.8) k/uL Potassium (3.5-5.1) mmol/L BUN (9-20) mg/dL Creatinine (0.66-1.25) mg/dL Glucose (74-99) mg/dL POC Glucose (mg/dL) 168 H (75-99) mg/dL CK-MB (CK-2) (0.0-2.4) ng/mL Thrombosis Risk Factor Assmnt - Choose All That Apply Any of the Below Risk Factors Present?: Yes Each Factor Represents 1 point: Abnormal pulmonary function (COPD) Other Risk Factors: Yes Each Risk Factor Represents 2 Points: Malignancy Each Risk Factor Represents 3 Points: Age 75 years or older, History of DVT/PE Other congenital or acquired thrombophilia - If yes, enter type in comment: No Thrombosis Risk Factor Assessment Total Risk Factor Score: 9 Thrombosis Risk Factor Assessment Level: High Risk Assessment and Plan (1) Hypertension Current Visit: Yes Status: Acute Code(s): I10 - ESSENTIAL (PRIMARY) HYPERTENSION SNOMED Code(s): 03294489 (2) Hyperlipidemia Current Visit: Yes Status: Acute Code(s): E78.5 - HYPERLIPIDEMIA, UNSPECIFIED SNOMED Code(s): 40983461 (3) COPD with acute exacerbation Current Visit: Yes Status: Acute Code(s): J44.1 - CHRONIC OBSTRUCTIVE PULMONARY DISEASE W (ACUTE) EXACERBATION SNOMED Code(s): 881676554 Plan: Reconcile home medications. Check labs in a.m. New Consult Dr. Chavarria. Continue current regimen of treatment. We'll continue to follow. Hopefully we can discharge the patient within the next 72 hours if stabilizing. At this time, patient is a full code.
[2017-07-23 07:33] LABS: Glucose,Whole Blood 134 mg/dL (75-99)
[2017-07-23] MEDS: IPRATROPIUM-ALBUTEROL 3 ML NEB INHALATION PRN (07:34)
[2017-07-23 08:17] LABS: HCT 33.6 % (39.0-53.0); HGB 10.3 gm/dL (13.0-17.5); Hypochromasia Moderate; MCH 26.9 pg (25.0-35.0); MCHC 30.8 g/dL (31.0-37.0); MCV 87.4 fL (80.0-100.0); Platelet Count 432 k/uL (150-450); RBC 3.84 m/uL (4.30-5.90); RDW 15.8 % (11.5-15.5)
[2017-07-23 08:19] LABS: Albumin 3.8 g/dL (3.5-5.0); Calcium 9.6 mg/dL (8.4-10.2); Potassium 5.7 mmol/L (3.5-5.1); Total Bilirubin 0.2 mg/dL (0.2-1.3); Total Protein 7.1 g/dL (6.3-8.2)
[2017-07-23] MEDS: LISINOPRIL 10 MG TAB PO SCH (08:47)
[2017-07-23] MEDS: TAMSULOSIN 0.4 MG CAP.ER.24H PO SCH ×2 (08:47→20:10)
[2017-07-23] MEDS: ATORVASTATIN 20 MG TAB PO SCH (08:47)
[2017-07-23] MEDS: INSULIN ASPART 100 UNIT/ML 1 ML 10 ML VIAL SQ SCH ×4 (08:51→21:46)
[2017-07-23] MEDS ORDERED: SULFAMETHOX-TMP 800-160MG 1 EACH TAB PO SCH (09:30)
[2017-07-23] MEDS: IPRATROPIUM-ALBUTEROL 3 ML NEB INHALATION SCH ×3 (11:25→20:35)
[2017-07-23 11:36] LABS: Glucose,Whole Blood 142 mg/dL (75-99)
--- NOTE | 2017-07-23 11:37 | P.CNPUL ---
History of Present Illness Consult date: 07/23/17 Requesting physician: Lobo Elizabeth Reason for consult: dyspnea, cough, COPD Chief complaint: increased shortness of breath, cough, chest congestion History of present illness: Iron is a 82-year-old white male patient, who sees Dr. Chavarria in our office for his advanced steroid-dependent COPD, with the baseline FEV1 of 33% predicted value, presented to the emergency room on 07/22/2017 at 1400 with complaints of increasing shortness of breath, wheezing, chest congestion, productive cough with yellow sputum. Denied any fever, did have some chills. Denied any chest pain, hemoptysis. Patient was seen by Dr. Chavarria in the office last Saturday on 07/19/2017 with COPD exacerbation, he was given Depo-Medrol IM, was started on his own taper and Bactrim DS. However over the weekend his symptoms did not improve and actually got worse, and patient did present to the ED for further evaluation and treatment. Chest x-ray from 07/22/2017 shows no evidence for acute pulmonary disease. Lab work showed that CBC within normal limits of 6.3, hemoglobin of 10.5, no evidence of coagulopathy, sodium is 139, potassium is 5.3, BUN of 28, and creatinine is 1.44. CK-MB was 8.3, troponin was negative 1. Follow-up blood work from today still shows normal white count , still with stable hemoglobin of 10.3, sodium of 140, his potassium is slightly increased to 5.7, BUN is 38, creatinine is 1.46. There is evidence of of acute kidney injury, patient denies decreased oral intake, no evidence of hypotension, on presentation to the emergency room, he was actually very hypertensive with a blood pressure of 203/84, but at the time he was in respiratory distress as well, and they're ranging from systolic blood pressure in the 130s to 180s, and diastolic pressure from 60s to 90s. Patient was started on DuoNeb nebulized treatments, IV Solu-Medrol, and admitted to the floor for further management. Review of Systems All systems: negative Constitutional: Denies chills, Denies fever Eyes: denies blurred vision, denies pain Ears, nose, mouth and throat: Denies headache, Denies sore throat Cardiovascular: Denies chest pain, Denies shortness of breath Respiratory: Denies cough Gastrointestinal: Denies abdominal pain, Denies diarrhea, Denies nausea, Denies vomiting Musculoskeletal: Denies myalgias Integumentary: Denies pruritus, Denies rash Neurological: Denies numbness, Denies weakness Psychiatric: Denies anxiety, Denies depression Endocrine: Denies fatigue, Denies weight change Past Medical History Past Medical History: Cancer, Chest Pain / Angina, COPD, Deep Vein Thrombosis ( DVT), Hyperlipidemia, Hypertension, Osteoarthritis (OA), Pneumonia Additional Past Medical History / Comment(s): unstable angina pectoris. COPD, purulent tracheobronchitis, chronic bronchitis. hard of hearing in left ear, OA, back pain, pneumonia 2010, home O2 at 2L/NC.prn, bladder cancer History of Any Multi-Drug Resistant Organisms: None Reported Past Surgical History: Bladder Surgery, Tonsillectomy Additional Past Surgical History / Comment(s): vasectomy Past Anesthesia/Blood Transfusion Reactions: No Reported Reaction Smoking Status: Former smoker - Past Family History Father Family Medical History: Cancer Additional Family Medical History / Comment(s): cancer. client reported father had scoliosis. Mother Additional Family Medical History / Comment(s): mother . unknown history Medications and Allergies Home Medications Medication Instructions Recorded Confirmed Type Albuterol Sulfate [Proair Hfa] 2 puff INHALATION RT-Q6H PRN 07/10/15 07/22/17 History Simvastatin [Zocor] 40 mg PO DAILY 07/10/15 07/22/17 History Ipratropium-Albuterol Nebulize 3 ml INHALATION RT-QID 07/11/15 07/22/17 History [Duoneb 0.5 mg-3 mg/3 ml Soln] Fluticasone/Vilanterol [Breo 1 puff INHALATION RT-DAILY 10/05/16 07/22/17 History Ellipta 200-25 Mcg INH] predniSONE 5 mg PO DAILY 10/05/16 07/22/17 History Tamsulosin HCl [Flomax] 0.4 mg PO BID 06/06/17 07/22/17 History Lisinopril [Zestril] 10 mg PO DAILY 07/22/17 07/22/17 History Sulfamethox-Tmp 800-160Mg [Bactrim 1 tab PO Q12HR 07/22/17 07/22/17 History DS 800-160 mg] Allergies Allergy/AdvReac Type Severity Reaction Status Date / Time No Known Allergies Allergy Verified 07/22/17 14:39 Physical Exam Vitals: Vital Signs Temp Pulse Pulse Resp BP BP BP 07/23/17 10:46 100 155/67 07/23/17 07:50 80 07/23/17 07:37 86 07/23/17 07:00 97.8 F 91 18 182/97 07/22/17 23:00 96.3 F L 86 16 136/64 07/22/17 21:56 80 07/22/17 21:46 86 07/22/17 20:35 07/22/17 18:05 96.6 F L 100 18 148/65 07/22/17 17:43 100 18 149/68 07/22/17 16:32 92 18 141/61 07/22/17 15:32 88 07/22/17 15:07 83 07/22/17 14:40 26 H 07/22/17 14:19 97.0 F L 95 26 H 203/84 Pulse Ox 07/23/17 10:46 97 07/23/17 07:50 07/23/17 07:37 96 07/23/17 07:00 99 07/22/17 23:00 96 07/22/17 21:56 07/22/17 21:46 07/22/17 20:35 95 07/22/17 18:05 93 L 07/22/17 17:43 94 L 07/22/17 16:32 94 L 07/22/17 15:32 07/22/17 15:07 07/22/17 14:40 07/22/17 14:19 95 Intake and Output 07/22/17 07/23/17 07/23/17 22:59 06:59 14:59 Intake Total 200 Balance 200 Intake: Oral 200 Other: Voiding Method Toilet Toilet Urinal Urinal # Voids 1 1 GENERAL EXAM: Alert, pleasant, thin, 82-year-old white male, mildly short of breath at rest, but fairly comfortable HEAD: Normocephalic/atraumatic. EYES: Normal reaction of pupils, equal size. Conjunctiva pink, sclera white. NOSE: Clear with pink turbinates. THROAT: No erythema or exudates. NECK: No masses, no JVD, no thyroid enlargement, no adenopathy. CHEST: No chest wall deformity. Symmetrical expansion. LUNGS: Equal air entry with scattered rhonchi, and wheezing throughout the lung wood. CVS: Regular rate and rhythm, normal S1 and S2, no gallops, no murmurs, no rubs ABDOMEN: Soft, nontender. No hepatosplenomegaly, normal bowel sounds, no guarding or rigidity. EXTREMITIES: No clubbing, no edema, no cyanosis, 2+ pulses and upper and lower extremities. MUSCULOSKELETAL: Muscle strength and tone normal. SPINE: No scoliosis or deformity SKIN: No rashes CENTRAL NERVOUS SYSTEM: Alert and oriented -3. No focal deficits, tone is normal in all 4 extremities. PSYCHIATRIC: Alert and oriented -3. Appropriate affect. Intact judgment and insight. Results - Laboratory Findings CBC and BMP: 07/23/17 07:19 07/23/17 07:19 PT/INR, D-dimer PT 9.5 sec (9.0-12.0) 07/22/17 14:30 INR 1.0 (<1.2) 07/22/17 14:30 Abnormal lab findings: Abnormal Labs 07/22/17 07/22/17 07/22/17 14:30 14:30 14:30 RBC 3.78 L Hgb 10.5 L Hct 33.6 L MCHC RDW Lymphocytes # 0.5 L Potassium 5.3 H BUN 28 H Creatinine 1.44 H Glucose 119 H POC Glucose (mg/dL) CK-MB (CK-2) 8.3 H* 07/22/17 07/23/17 07/23/17 21:06 07:06 07:19 RBC 3.84 L Hgb 10.3 L Hct 33.6 L MCHC 30.8 L RDW 15.8 H Lymphocytes # Potassium BUN Creatinine Glucose POC Glucose (mg/dL) 168 H 134 H CK-MB (CK-2) 07/23/17 07:19 RBC Hgb Hct MCHC RDW Lymphocytes # Potassium 5.7 H BUN 38 H Creatinine 1.46 H Glucose 134 H POC Glucose (mg/dL) CK-MB (CK-2) - Diagnostic Findings Chest x-ray: report reviewed Additional studies: Twelve-lead EKG reviewed. Assessment and Plan Plan: Assessment: #1. Acute COPD exacerbation completed by tracheobronchitis, with failed outpatient treatment #2. Advanced steroid dependent COPD, with a baseline FEV1 of 33% of predicted #3. Acute kidney injury, of unclear etiology, patient presented with a BUN of 28, and creatinine of 1.44, which subsequently increased to 38 and 1.46 respectively on today's lab work from 07/23/2017. his previous creatinine from 06/06/2017 was within normal limits at 1.10. #4. Hyperkalemia, possibly related to acute kidney injury or Bactrim therapy #5. nicotine dependence, currently in remission, #6. hyperlipidemia #7. Hypertension #8. Neoplasm of bladder #9. History of deep venous thrombosis Plan: Continue DuoNeb nebulized treatments, we will add Pulmicort and Perforomist. Agree with IV Solu-Medrol, we initially restarted his Bactrim DS that was prescribed for him on 07/19/2017, but upon further review patient is hyperkalemic, could be due to Bactrim. We will stop the Bactrim and switch to a different antibiotic, oral Ceftin. Will obtain influenza screen. Continue all other treatments. I performed a history & physical examination of the patient and discussed their management with my nurse practitioner, Dora Abarca. I reviewed the nurse practitioner's note and agree with the documented findings and plan of care. Lung sounds are positive for diffuse wheezes and rhonchi throughout the lung wood. The findings and the impression was discussed with the patient. I attest to the documentation by the nurse practitioner. Time with Patient: Greater than 30
[2017-07-23] MEDS: CEFUROXIME 250 MG TAB PO SCH ×2 (12:29→20:10)
[2017-07-23 13:19] LABS: Hemoglobin A1C 6.3 % (4.0-6.0)
[2017-07-23] MEDS: SODIUM CHLORIDE 0.45% 1,000 ML IV SCH (14:52)
[2017-07-23 17:47] LABS: Glucose,Whole Blood 154 mg/dL (75-99)
[2017-07-23] MEDS: BUDESONIDE 1 MG/2 ML NEBU INHALATION SCH (20:35)
[2017-07-23] MEDS: FORMOTEROL FUMARATE 20 MCG/2 ML NEBU INHALATION SCH (20:35)
[2017-07-23 21:08] LABS: Glucose,Whole Blood 151 mg/dL (75-99)
[2017-07-24] MEDS: methylPREDNISolone SOD SUCCI 125 MG/2 ML VIAL IV SCH ×4 (00:20→18:01)
[2017-07-24 07:18] LABS: Glucose,Whole Blood 127 mg/dL (75-99)
[2017-07-24] MEDS: INSULIN ASPART 100 UNIT/ML 1 ML 10 ML VIAL SQ SCH ×4 (07:52→21:42)
[2017-07-24 08:15] LABS: HCT 33.1 % (39.0-53.0); HGB 9.9 gm/dL (13.0-17.5); Hypochromasia Slight; MCHC 29.9 g/dL (31.0-37.0); MCV 90.2 fL (80.0-100.0); Mean Platelet Volume 6.7; Platelet Count 444 k/uL (150-450); RBC 3.67 m/uL (4.30-5.90); RDW 14.8 % (11.5-15.5); WBC 10.1 k/uL (3.8-10.6)
[2017-07-24] MEDS: BUDESONIDE 1 MG/2 ML NEBU INHALATION SCH ×2 (08:30→20:06)
[2017-07-24] MEDS: FORMOTEROL FUMARATE 20 MCG/2 ML NEBU INHALATION SCH ×2 (08:30→20:06)
[2017-07-24] MEDS: IPRATROPIUM-ALBUTEROL 3 ML NEB INHALATION SCH ×4 (08:30→20:07)
[2017-07-24 08:34] LABS: Albumin 3.7 g/dL (3.5-5.0); Calcium 9.4 mg/dL (8.4-10.2); Total Bilirubin 0.4 mg/dL (0.2-1.3)
--- NOTE | 2017-07-24 08:41 | P.PN ---
Subjective Principal diagnosis: Continuing care. Exacerbation of COPD. This is an 82-year-old white male with known history of COPD who comes in for side exacerbation. The patient has been doing quite well up until 3 days ago where he progressively became worse. He was seen by pulmonology and was started on Bactrim last week. The patient now after having Solu-Medrol is improved. No voiding difficulties. He seems to be tolerating diet properly. No significant pain is noted. Objective - Vital Signs Vital signs: Vital Signs Temp 97.1 F L 07/24/17 07:00 Pulse 80 07/24/17 08:30 Resp 20 07/24/17 07:00 BP 153/67 07/24/17 07:00 Pulse Ox 96 07/24/17 07:05 Intake & Output 07/23/17 07/24/17 07/24/17 18:59 06:59 18:59 Intake Total 440 Balance 440 Intake: Oral 440 Other: Voiding Method Toilet Urinal # Voids 2 1 # Bowel Movements 0 - Constitutional General appearance: Present: average body habitus - EENT Eyes: Absent: abnormal pupil - Respiratory Respiratory: bilateral: prolonged expiration - Cardiovascular Rhythm: regular Heart sounds: normal: S1, S2 - Gastrointestinal General gastrointestinal: Present: soft. Absent: tenderness - Neurologic Neurologic: Absent: focal deficits - Labs CBC & Chem 7: 07/24/17 07:34 07/24/17 07:34 Labs: Abnormal Lab Results - Last 24 Hours (Table) 07/22/17 07/23/17 07/23/17 Range/Units 14:30 11:33 17:33 RBC (4.30-5.90) m/uL Hgb (13.0-17.5) gm/dL Hct (39.0-53.0) % MCHC (31.0-37.0) g/dL Potassium (3.5-5.1) mmol/L BUN (9-20) mg/dL Creatinine (0.66-1.25) mg/dL Glucose (74-99) mg/dL POC Glucose (mg/dL) 142 H 154 H (75-99) mg/dL Hemoglobin A1c 6.3 H (4.0-6.0) % 07/23/17 07/24/17 07/24/17 Range/Units 21:03 07:13 07:34 RBC 3.67 L (4.30-5.90) m/uL Hgb 9.9 L (13.0-17.5) gm/dL Hct 33.1 L (39.0-53.0) % MCHC 29.9 L (31.0-37.0) g/dL Potassium (3.5-5.1) mmol/L BUN (9-20) mg/dL Creatinine (0.66-1.25) mg/dL Glucose (74-99) mg/dL POC Glucose (mg/dL) 151 H 127 H (75-99) mg/dL Hemoglobin A1c (4.0-6.0) % 07/24/17 Range/Units 07:34 RBC (4.30-5.90) m/uL Hgb (13.0-17.5) gm/dL Hct (39.0-53.0) % MCHC (31.0-37.0) g/dL Potassium 6.0 H (3.5-5.1) mmol/L BUN 54 H (9-20) mg/dL Creatinine 1.52 H (0.66-1.25) mg/dL Glucose 121 H (74-99) mg/dL POC Glucose (mg/dL) (75-99) mg/dL Hemoglobin A1c (4.0-6.0) % Microbiology - Last 24 Hours (Table) 07/22/17 14:30 Blood Culture - Preliminary Blood No Growth after 24 hours Assessment and Plan (1) Hypertension Current Visit: Yes Status: Acute Code(s): I10 - ESSENTIAL (PRIMARY) HYPERTENSION SNOMED Code(s): 02113710 (2) Hyperlipidemia Current Visit: Yes Status: Acute Code(s): E78.5 - HYPERLIPIDEMIA, UNSPECIFIED SNOMED Code(s): 24712596 (3) COPD with acute exacerbation Current Visit: Yes Status: Acute Code(s): J44.1 - CHRONIC OBSTRUCTIVE PULMONARY DISEASE W (ACUTE) EXACERBATION SNOMED Code(s): 881863610 Plan: Continue current regimen Check CBC ad CMP in AM Definite progressive improvement
[2017-07-24] MEDS: TAMSULOSIN 0.4 MG CAP.ER.24H PO SCH ×2 (09:05→21:41)
[2017-07-24] MEDS: LISINOPRIL 10 MG TAB PO SCH (09:05)
[2017-07-24] MEDS: CEFUROXIME 250 MG TAB PO SCH ×2 (09:06→21:40)
[2017-07-24] MEDS: SODIUM CHLORIDE 0.45% 1,000 ML IV SCH ×3 (09:06→21:41)
[2017-07-24] MEDS: ATORVASTATIN 20 MG TAB PO SCH (09:06)
--- NOTE | 2017-07-24 09:46 | CDI ---
Documentation Clarification Form Date: 07/24/2017 09:45 A.M. From: Julissa Mckenna RN Admit Date: 07/22/2017 Patient Name: Iron Rodríguez Visit number: [id number] Dr. Lobo Elizabeth, The patient presented with the following respiratory symptoms, difficulty breathing Documentation in the H&P states "Pt is 02 dependent " History/Risk Factors: COPD, chronic bronchitis, pneumonia Home oxygen: yes smoker Clinical Indicators: Vital signs: on admission T 97.0, P95, R 26, 203/84, 95%RA Pulse oximetry: 94% 2L currently Treatment: O2 2L Pulmonary consult In your professional opinion, can you please clarify if these findings signify one of the following conditions? Chronic Respiratory Failure, further specify (if known): With hypercapnia? With hypoxia? Other Diagnosis, please specify Unable to determine MTDD
[2017-07-24 12:20] LABS: Glucose,Whole Blood 122 mg/dL (75-99)
[2017-07-24] MEDS ORDERED: DEXTROSE 50%-WATER 50 ML SYRINGE IVP STA ×2 (13:36→18:28)
[2017-07-24] MEDS ORDERED: INSULIN REGULAR 100 UNIT/ML VIAL IV ONE ×2 (13:36→18:23)
[2017-07-24] MEDS ORDERED: CALCIUM GLUCONATE 1,000 MG in SODIUM CHLORIDE 0.9% 100 ML IVPB ONE (13:40)
--- NOTE | 2017-07-24 13:57 | P.PN ---
Subjective Progress Note Date: 07/24/17 Principal diagnosis: Acute COPD exacerbation, tracheobronchitis, with failed outpatient treatment Iron is a 82-year-old white male patient, who sees Dr. Chavarria in our office for his advanced steroid-dependent COPD, with the baseline FEV1 of 33% predicted value, presented to the emergency room on 07/22/2017 at 1400 with complaints of increasing shortness of breath, wheezing, chest congestion, productive cough with yellow sputum. Denied any fever, did have some chills. Denied any chest pain, hemoptysis. Patient was seen by Dr. Chavarria in the office last Saturday on 07/19/2017 with COPD exacerbation, he was given Depo-Medrol IM, was started on his own taper and Bactrim DS. However over the weekend his symptoms did not improve and actually got worse, and patient did present to the ED for further evaluation and treatment. Chest x-ray from 07/22/2017 shows no evidence for acute pulmonary disease. Lab work showed that CBC within normal limits of 6.3, hemoglobin of 10.5, no evidence of coagulopathy, sodium is 139, potassium is 5.3, BUN of 28, and creatinine is 1.44. CK-MB was 8.3, troponin was negative 1. Follow-up blood work from today still shows normal white count , still with stable hemoglobin of 10.3, sodium of 140, his potassium is slightly increased to 5.7, BUN is 38, creatinine is 1.46. There is evidence of of acute kidney injury, patient denies decreased oral intake, no evidence of hypotension, on presentation to the emergency room, he was actually very hypertensive with a blood pressure of 203/84, but at the time he was in respiratory distress as well, and they're ranging from systolic blood pressure in the 130s to 180s, and diastolic pressure from 60s to 90s. Patient was started on DuoNeb nebulized treatments, IV Solu-Medrol, and admitted to the floor for further management. On 07/24/2017 patient is seen in follow-up. Continues to be significantly congested, wheezy, and rhonchorous. Is not able to bring up much sputum. Patient's vital signs remain stable, on 3 L per nasal cannula he is satting 96% . Afebrile, hemodynamically stable. Today's lab work was reviewed, WBC is 10.1 , hemoglobin is 9.9, sodium is 139, potassium is up to 6.0, there is further worsening of his renal function, his BUN is 54, and creatinine is 1.52. We will ask the attending physician whether he wants to consult nephrology in regards to the patient's worsening renal function. We will go ahead and treat his hyperkalemia, we will stop the lisinopril, and give calcium gluconate 1 g IV piggyback 1, 1 amp of D50, 10 units of Humulin R, and start the patient on Kayexalate 30 g by mouth twice a day. We will recheck his BMP in 4 hours. Objective - Vital Signs Vital signs: Vital Signs Temp 97.1 F L 07/24/17 07:00 Pulse 80 07/24/17 12:16 Resp 20 07/24/17 07:00 BP 153/67 07/24/17 07:00 Pulse Ox 96 07/24/17 07:05 Intake & Output 07/23/17 07/24/17 07/24/17 18:59 06:59 18:59 Intake Total 440 Balance 440 Intake: Oral 440 Other: Voiding Method Toilet Urinal # Voids 2 1 # Bowel Movements 0 - Exam GENERAL EXAM: Alert, pleasant, thin, 82-year-old white male, mildly short of breath at rest, but fairly comfortable HEAD: Normocephalic/atraumatic. EYES: Normal reaction of pupils, equal size. Conjunctiva pink, sclera white. NOSE: Clear with pink turbinates. THROAT: No erythema or exudates. NECK: No masses, no JVD, no thyroid enlargement, no adenopathy. CHEST: No chest wall deformity. Symmetrical expansion. LUNGS: Equal air entry with scattered rhonchi, and wheezing throughout the lung wood. CVS: Regular rate and rhythm, normal S1 and S2, no gallops, no murmurs, no rubs ABDOMEN: Soft, nontender. No hepatosplenomegaly, normal bowel sounds, no guarding or rigidity. EXTREMITIES: No clubbing, no edema, no cyanosis, 2+ pulses and upper and lower extremities. MUSCULOSKELETAL: Muscle strength and tone normal. SPINE: No scoliosis or deformity SKIN: No rashes CENTRAL NERVOUS SYSTEM: Alert and oriented -3. No focal deficits, tone is normal in all 4 extremities. PSYCHIATRIC: Alert and oriented -3. Appropriate affect. Intact judgment and insight. - Labs CBC & Chem 7: 07/24/17 07:34 07/24/17 07:34 Labs: Abnormal Lab Results - Last 24 Hours (Table) 07/22/17 07/23/17 07/23/17 Range/Units 14:30 17:33 21:03 RBC (4.30-5.90) m/uL Hgb (13.0-17.5) gm/dL Hct (39.0-53.0) % MCHC (31.0-37.0) g/dL Potassium (3.5-5.1) mmol/L BUN (9-20) mg/dL Creatinine (0.66-1.25) mg/dL Glucose (74-99) mg/dL POC Glucose (mg/dL) 154 H 151 H (75-99) mg/dL Hemoglobin A1c 6.3 H (4.0-6.0) % 07/24/17 07/24/17 07/24/17 Range/Units 07:13 07:34 07:34 RBC 3.67 L (4.30-5.90) m/uL Hgb 9.9 L (13.0-17.5) gm/dL Hct 33.1 L (39.0-53.0) % MCHC 29.9 L (31.0-37.0) g/dL Potassium 6.0 H (3.5-5.1) mmol/L BUN 54 H (9-20) mg/dL Creatinine 1.52 H (0.66-1.25) mg/dL Glucose 121 H (74-99) mg/dL POC Glucose (mg/dL) 127 H (75-99) mg/dL Hemoglobin A1c (4.0-6.0) % 07/24/17 Range/Units 12:18 RBC (4.30-5.90) m/uL Hgb (13.0-17.5) gm/dL Hct (39.0-53.0) % MCHC (31.0-37.0) g/dL Potassium (3.5-5.1) mmol/L BUN (9-20) mg/dL Creatinine (0.66-1.25) mg/dL Glucose (74-99) mg/dL POC Glucose (mg/dL) 122 H (75-99) mg/dL Hemoglobin A1c (4.0-6.0) % Microbiology - Last 24 Hours (Table) 07/22/17 14:30 Blood Culture - Preliminary Blood No Growth after 24 hours Assessment and Plan Plan: Assessment: #1. Acute COPD exacerbation completed by tracheobronchitis, with failed outpatient treatment #2. Advanced steroid dependent COPD, with a baseline FEV1 of 33% of predicted #3. Acute kidney injury, possibly related to administration of Bactrim DS and lisinopril, patient presented with a BUN of 28, and creatinine of 1.44, which subsequently increased to 38 and 1.46 respectively on today's lab work from . his previous creatinine from 06/06/2017 was within normal limits at 1.10. Today's blood work shows further worsening of his renal function BUN is up to 54, and creatinine is up to 1.5 to #4. Hyperkalemia, possibly related to acute kidney injury or Bactrim and lisinopril therapy, today's blood work shows serum potassium is up to 6.0, Bactrim has been discontinued yesterday, we will stop the lisinopril, we will treat the hyperkalemia #5. nicotine dependence, currently in remission, #6. hyperlipidemia #7. Hypertension #8. Neoplasm of bladder #9. History of deep venous thrombosis Plan: Patient continues to be significantly congested on today's exam, and dyspneic. Continue DuoNeb nebulized treatments, we will add Pulmicort and Perforomist. Continue IV Solu-Medrol, his antibiotics were switched from Bactrim to Ceftin yesterday in view of his worsening renal failure. We will stop the lisinopril. Today's lab work shows further increase in patient's BUN and creatinine, as well as his serum potassium. We will give 1 g of calcium gluconate IV piggyback , we will give 10 units of Humulin R, with 1 amp of D50, we will start Kayexalate 30 g twice a day, we will recheck the BMP in 4 hours. We will check with the attending physician whether he wants to consult nephrology. Patient is scheduled for bronchoscopy with bronchoalveolar lavage tomorrow with Dr. Chavarria, but if his electrolyte profile does not become normal there is a likelihood the procedure may be canceled. I performed a history & physical examination of the patient and discussed their management with my nurse practitioner, Dora Abarca. I reviewed the nurse practitioner's note and agree with the documented findings and plan of care. Lung sounds are positive for diffuse wheezes and rhonchi throughout the lung wood. The findings and the impression was discussed with the patient. I attest to the documentation by the nurse practitioner. Time with Patient: Less than 30
[2017-07-24] MEDS: SODIUM POLYSTYRENE SULFONATE 15 GM/60 ML BOTTLE PO SCH ×2 (14:29→22:02)
[2017-07-24 17:23] LABS: Glucose,Whole Blood 109 mg/dL (75-99)
[2017-07-24 17:38] LABS: Calcium 9.7 mg/dL (8.4-10.2); Potassium 5.9 mmol/L (3.5-5.1)
[2017-07-24] MEDS ORDERED: ALBUTEROL NEBULIZED (CONC) 20 MG, SODIUM CHLORIDE 0.9% NEBULIZ 3 ML INHALATION ONE ×2 (18:24)
[2017-07-24 20:36] LABS: Glucose,Whole Blood 70 mg/dL (75-99)
[2017-07-25 00:19] LABS: Glucose,Whole Blood 160 mg/dL (75-99)
[2017-07-25 00:29] LABS: Calcium 8.7 mg/dL (8.4-10.2); Potassium 5.1 mmol/L (3.5-5.1)
[2017-07-25] MEDS: methylPREDNISolone SOD SUCCI 125 MG/2 ML VIAL IV SCH ×4 (00:57→17:24)
[2017-07-25 07:28] LABS: Glucose,Whole Blood 136 mg/dL (75-99)
[2017-07-25] MEDS: INSULIN ASPART 100 UNIT/ML 1 ML 10 ML VIAL SQ SCH ×4 (07:36→21:49)
[2017-07-25] MEDS: IPRATROPIUM-ALBUTEROL 3 ML NEB INHALATION SCH ×4 (07:36→20:15)
[2017-07-25] MEDS: BUDESONIDE 1 MG/2 ML NEBU INHALATION SCH ×2 (07:36→20:14)
[2017-07-25] MEDS: FORMOTEROL FUMARATE 20 MCG/2 ML NEBU INHALATION SCH ×2 (07:36→20:14)
--- NOTE | 2017-07-25 08:06 | P.PN ---
Subjective Principal diagnosis: Continuing care. Exacerbation of COPD. This is a continue pressure 82-year-old white male who essentially minute of acute exacerbation of COPD. The patient has developed hyperkalemia over the last 48 hours and was given insulin and Kayexalate. His potassium level is now controlled. I suspect he had an element of prerenal azotemia and after increasing his IV fluid, he seems to have been stabilized. He is scheduled for bronchoscopy today. The patient otherwise seems tachypneic this morning. Objective - Vital Signs Vital signs: Vital Signs Temp 97.9 F 07/25/17 07:00 Pulse 100 07/25/17 07:50 Resp 22 07/25/17 07:00 BP 142/80 07/25/17 07:00 Pulse Ox 99 07/25/17 07:00 Intake & Output 07/24/17 07/25/17 07/25/17 18:59 06:59 18:59 Intake Total 400 Output Total 1850 Balance 400 -1850 Intake: Intake, IV Titration 400 Amount Calcium Gluconate 1,000 100 mg In Sodium Chloride 0.9 % 100 ml @ 100 mls/hr IVPB ONCE ONE Rx#: [id number] Sodium Chloride 0.45% 1, 300 000 ml @ 100 mls/hr IV . Q10H [facility] Rx#:[id number] Output: Urine 1850 Uretheral (Swartz) 425 Other: Voiding Method Toilet Urinal # Voids 2 # Bowel Movements 1 - Constitutional General appearance: Present: average body habitus - EENT Eyes: Absent: abnormal pupil - Neck Neck: Absent: lymphadenopathy - Respiratory Respiratory: bilateral: wheezing, prolonged expiration - Cardiovascular Rhythm: regular Abnormal Heart Sounds: Absent: S3 Gallop - Gastrointestinal General gastrointestinal: Present: soft. Absent: tenderness - Labs CBC & Chem 7: 07/24/17 07:34 07/25/17 00:03 Labs: Abnormal Lab Results - Last 24 Hours (Table) 07/24/17 07/24/17 07/24/17 Range/Units 07:34 07:34 12:18 RBC 3.67 L (4.30-5.90) m/uL Hgb 9.9 L (13.0-17.5) gm/dL Hct 33.1 L (39.0-53.0) % MCHC 29.9 L (31.0-37.0) g/dL Potassium 6.0 H (3.5-5.1) mmol/L Carbon Dioxide (22-30) mmol/L BUN 54 H (9-20) mg/dL Creatinine 1.52 H (0.66-1.25) mg/dL Glucose 121 H (74-99) mg/dL POC Glucose (mg/dL) 122 H (75-99) mg/dL 07/24/17 07/24/17 07/24/17 Range/Units 17:07 17:17 20:33 RBC (4.30-5.90) m/uL Hgb (13.0-17.5) gm/dL Hct (39.0-53.0) % MCHC (31.0-37.0) g/dL Potassium 5.9 H (3.5-5.1) mmol/L Carbon Dioxide 21 L (22-30) mmol/L BUN 66 H (9-20) mg/dL Creatinine 1.90 H (0.66-1.25) mg/dL Glucose 108 H (74-99) mg/dL POC Glucose (mg/dL) 109 H 70 L (75-99) mg/dL 07/25/17 07/25/17 07/25/17 Range/Units 00:03 00:06 07:22 RBC (4.30-5.90) m/uL Hgb (13.0-17.5) gm/dL Hct (39.0-53.0) % MCHC (31.0-37.0) g/dL Potassium (3.5-5.1) mmol/L Carbon Dioxide (22-30) mmol/L BUN 79 H (9-20) mg/dL Creatinine 2.30 H (0.66-1.25) mg/dL Glucose 163 H (74-99) mg/dL POC Glucose (mg/dL) 160 H 136 H (75-99) mg/dL Microbiology - Last 24 Hours (Table) 07/22/17 14:30 Blood Culture - Preliminary Blood No Growth after 48 hours Assessment and Plan (1) Hypertension Current Visit: Yes Status: Acute Code(s): I10 - ESSENTIAL (PRIMARY) HYPERTENSION SNOMED Code(s): 99239724 (2) Hyperlipidemia Current Visit: Yes Status: Acute Code(s): E78.5 - HYPERLIPIDEMIA, UNSPECIFIED SNOMED Code(s): 13789186 (3) COPD with acute exacerbation Current Visit: Yes Status: Acute Code(s): J44.1 - CHRONIC OBSTRUCTIVE PULMONARY DISEASE W (ACUTE) EXACERBATION SNOMED Code(s): 889311086 (4) Acute hyperkalemia Current Visit: Yes Status: Acute Code(s): E87.5 - HYPERKALEMIA SNOMED Code (s): 8315694 Plan: Watch her I lites closely. Check CMP in a.m. We'll continue to follow with appropriate consultants. Slow improvement is noted otherwise. See orders otherwise.
[2017-07-25] MEDS: SODIUM POLYSTYRENE SULFONATE 15 GM/60 ML BOTTLE PO SCH ×4 (08:08→21:52)
[2017-07-25] MEDS: SODIUM CHLORIDE 0.45% 1,000 ML IV SCH ×2 (08:08→16:07)
[2017-07-25] MEDS: TAMSULOSIN 0.4 MG CAP.ER.24H PO SCH ×2 (08:09→21:50)
[2017-07-25] MEDS: CEFUROXIME 250 MG TAB PO SCH ×2 (08:09→21:48)
[2017-07-25] MEDS: ATORVASTATIN 20 MG TAB PO SCH (08:09)
[2017-07-25 08:26] LABS: Calcium 9.4 mg/dL (8.4-10.2); Potassium 4.7 mmol/L (3.5-5.1)
[2017-07-25] MEDS ORDERED: PROPOFOL 10 MG/ML 20 ML VIAL IV ONE (10:04)
[2017-07-25] MEDS ORDERED: GLYCOPYRROLATE 0.2 MG/ML 2 ML VIAL ONE (10:04)
[2017-07-25] MEDS ORDERED: fentaNYL (PF) 50 MCG/ML 2 ML AMP ONE (10:04)
[2017-07-25] MEDS ORDERED: MIDAZOLAM 2 MG/2 ML VIAL ONE (10:04)
[2017-07-25] MEDS ORDERED: IV FLUID CONTINUATION 1,000 ML IV ONE (10:08)
--- NOTE | 2017-07-25 10:33 | P.PN ---
Subjective Progress Note Date: 07/25/17 Principal diagnosis: Acute COPD exacerbation, tracheobronchitis, failed outpatient therapy. Iron is a 82-year-old white male patient, who sees Dr. Chavarria in our office for his advanced steroid-dependent COPD, with the baseline FEV1 of 33% predicted value, presented to the emergency room on 07/22/2017 at 1400 with complaints of increasing shortness of breath, wheezing, chest congestion, productive cough with yellow sputum. Denied any fever, did have some chills. Denied any chest pain, hemoptysis. Patient was seen by Dr. Chavarria in the office last Saturday on 07/19/2017 with COPD exacerbation, he was given Depo-Medrol IM, was started on his own taper and Bactrim DS. However over the weekend his symptoms did not improve and actually got worse, and patient did present to the ED for further evaluation and treatment. Chest x-ray from 07/22/2017 shows no evidence for acute pulmonary disease. Lab work showed that CBC within normal limits of 6.3, hemoglobin of 10.5, no evidence of coagulopathy, sodium is 139, potassium is 5.3, BUN of 28, and creatinine is 1.44. CK-MB was 8.3, troponin was negative 1. Follow-up blood work from today still shows normal white count , still with stable hemoglobin of 10.3, sodium of 140, his potassium is slightly increased to 5.7, BUN is 38, creatinine is 1.46. There is evidence of of acute kidney injury, patient denies decreased oral intake, no evidence of hypotension, on presentation to the emergency room, he was actually very hypertensive with a blood pressure of 203/84, but at the time he was in respiratory distress as well, and they're ranging from systolic blood pressure in the 130s to 180s, and diastolic pressure from 60s to 90s. Patient was started on DuoNeb nebulized treatments, IV Solu-Medrol, and admitted to the floor for further management. On 07/24/2017 patient is seen in follow-up. Continues to be significantly congested, wheezy, and rhonchorous. Is not able to bring up much sputum. Patient's vital signs remain stable, on 3 L per nasal cannula he is satting 96% . Afebrile, hemodynamically stable. Today's lab work was reviewed, WBC is 10.1 , hemoglobin is 9.9, sodium is 139, potassium is up to 6.0, there is further worsening of his renal function, his BUN is 54, and creatinine is 1.52. We will ask the attending physician whether he wants to consult nephrology in regards to the patient's worsening renal function. We will go ahead and treat his hyperkalemia, we will stop the lisinopril, and give calcium gluconate 1 g IV piggyback 1, 1 amp of D50, 10 units of Humulin R, and start the patient on Kayexalate 30 g by mouth twice a day. We will recheck his BMP in 4 hours. The patient was seen again today 07/25/2017 in follow-up in the [facility]. He is awake and alert in no acute distress. He continues with a loose nonproductive cough. He is maintaining good O2 saturations in the 90s on 2 L/m per nasal cannula. He's been afebrile. Hemodynamically stable. He is undergoing bronchoscopy with BAL with Dr. Chavarria today. Blood cultures reveal no growth. Objective - Vital Signs Vital signs: Vital Signs Temp 97.9 F 07/25/17 08:14 Pulse 95 07/25/17 08:14 Resp 20 07/25/17 08:14 BP 142/80 07/25/17 08:14 Pulse Ox 99 07/25/17 07:00 Intake & Output 07/24/17 07/25/17 07/25/17 18:59 06:59 18:59 Intake Total 400 Output Total 1850 Balance 400 -1850 Intake: Intake, IV Titration 400 Amount Calcium Gluconate 1,000 100 mg In Sodium Chloride 0.9 % 100 ml @ 100 mls/hr IVPB ONCE ONE Rx#: [id number] Sodium Chloride 0.45% 1, 300 000 ml @ 100 mls/hr IV . Q10H [facility] Rx#:[id number] Output: Urine 1850 Uretheral (Swartz) 425 Other: Voiding Method Toilet Urinal # Voids 2 # Bowel Movements 1 - Exam GENERAL EXAM: Alert, pleasant, thin, 82-year-old white male, mildly short of breath at rest, but fairly comfortable HEAD: Normocephalic/atraumatic. EYES: Normal reaction of pupils, equal size. Conjunctiva pink, sclera white. NOSE: Clear with pink turbinates. THROAT: No erythema or exudates. NECK: No masses, no JVD, no thyroid enlargement, no adenopathy. CHEST: No chest wall deformity. Symmetrical expansion. LUNGS: Equal air entry with scattered rhonchi, and wheezing throughout the lung wood. CVS: Regular rate and rhythm, normal S1 and S2, no gallops, no murmurs, no rubs ABDOMEN: Soft, nontender. No hepatosplenomegaly, normal bowel sounds, no guarding or rigidity. EXTREMITIES: No clubbing, no edema, no cyanosis, 2+ pulses and upper and lower extremities. MUSCULOSKELETAL: Muscle strength and tone normal. SPINE: No scoliosis or deformity SKIN: No rashes CENTRAL NERVOUS SYSTEM: Alert and oriented -3. No focal deficits, tone is normal in all 4 extremities. PSYCHIATRIC: Alert and oriented -3. Appropriate affect. Intact judgment and insight. - Labs CBC & Chem 7: 07/24/17 07:34 07/25/17 07:27 Labs: Abnormal Lab Results - Last 24 Hours (Table) 07/24/17 07/24/17 07/24/17 Range/Units 12:18 17:07 17:17 Potassium 5.9 H (3.5-5.1) mmol/L Carbon Dioxide 21 L (22-30) mmol/L BUN 66 H (9-20) mg/dL Creatinine 1.90 H (0.66-1.25) mg/dL Glucose 108 H (74-99) mg/dL POC Glucose (mg/dL) 122 H 109 H (75-99) mg/dL 07/24/17 07/25/17 07/25/17 Range/Units 20:33 00:03 00:06 Potassium (3.5-5.1) mmol/L Carbon Dioxide (22-30) mmol/L BUN 79 H (9-20) mg/dL Creatinine 2.30 H (0.66-1.25) mg/dL Glucose 163 H (74-99) mg/dL POC Glucose (mg/dL) 70 L 160 H (75-99) mg/dL 07/25/17 07/25/17 Range/Units 07:22 07:27 Potassium (3.5-5.1) mmol/L Carbon Dioxide (22-30) mmol/L BUN 65 H (9-20) mg/dL Creatinine 1.66 H (0.66-1.25) mg/dL Glucose 126 H (74-99) mg/dL POC Glucose (mg/dL) 136 H (75-99) mg/dL Microbiology - Last 24 Hours (Table) 07/22/17 14:30 Blood Culture - Preliminary Blood No Growth after 48 hours Assessment and Plan Assessment: Assessment: #1. Acute COPD exacerbation completed by tracheobronchitis, with failed outpatient treatment #2. Advanced steroid dependent COPD, with a baseline FEV1 of 33% of predicted #3. Acute kidney injury, possibly related to administration of Bactrim DS and lisinopril, patient presented with a BUN of 28, and creatinine of 1.44, which subsequently increased to 38 and 1.46 respectively on today's lab work from . his previous creatinine from 06/06/2017 was within normal limits at 1.10. Today's blood work shows further worsening of his renal function BUN is up to 54, and creatinine is up to 1.5 to #4. Hyperkalemia, possibly related to acute kidney injury or Bactrim and lisinopril therapy, today's blood work shows serum potassium is up to 6.0, Bactrim has been discontinued yesterday, we will stop the lisinopril, we will treat the hyperkalemia #5. nicotine dependence, currently in remission, #6. hyperlipidemia #7. Hypertension #8. Neoplasm of bladder #9. History of deep venous thrombosis Plan: The patient was seen and evaluated by Dr. Chavarria. His labs were reviewed. Potassium 4.7. Creatinine 1.66. He will undergo bronchoscopy with BAL today. Bronchial washings will be sent to lab for analysis. We'll continue with his current medications. We'll increase his activity as tolerated. We'll continue to follow. I, the cosigning physician, performed a history & physical examination of the patient. Lungs sounds have bilateral scattered rhonchi. Diminished.. Maintaining good O2 saturations in the 90s on 2 L/m per nasal cannula. I discussed the assessment and plan of care with my nurse practitioner, Mary Austin. I attest to the above note as dictated by her.
[2017-07-25] MEDS ORDERED: LIDOCAINE 2% INJ 20 MG/ML INTRATRACH ONE (10:34)
--- NOTE | 2017-07-25 10:44 | PCN ---
PROCEDURE NOTE PROCEDURE: Bronchoscopy airway examination, therapeutic lavage, BAL left lower lobe. PREOP DIAGNOSIS: Severe COPD, retained secretions. POSTOPERATIVE DIAGNOSIS: Severe COPD, retained secretions. There was informed consent. There was universal timeout, NAPPER GR[employer]ER provided conscious sedation with general anesthesia. After the patient was adequately sedated and being fully monitored, the bronchoscope was inserted through the right nostril. It passed through the right nasopharynx into the oropharynx. The hypopharynx was identified and topicalized. The hypopharyngeal structures appeared to be relatively normal. This includes anterior commissure, true cords, false cords, arytenoids, piriform sinuses, right and left vallecula. After topicalization, the bronchoscope was placed through the glottic opening into the trachea. There was secretions noted bubbling up to the mid trachea. They were foamy and yellow-green in color. They were suctioned without difficulty. Tracheal dayton was sharp. The right and left mainstem were topicalized. After topicalization, the bronchoscope was pushed into the right lung. The right upper lobe and its 3 segments, right middle lobe and its 2 segments, right lower lobe and its 5 segments, left upper lobe and its 2 segments, lingula and its 2 segments and left lower lobe and its 4 segments all had similar findings of diffuse moderate bronchitis. There was mucosal erythema and hyperemia. The mucosa was somewhat friable. There were thick secretions noted throughout. They were yellow in color. No dominant mass or tumor. No active bleeding. The bronchoscope was wedged into the left lower lobe. The BAL took place. Patient tolerated the procedure well. The specimens were sent to the laboratory for analysis. There was no immediate complication. MMODL / IJN: [id number] /
[2017-07-25 11:17] LABS: Glucose,Whole Blood 136 mg/dL (75-99)
--- NOTE | 2017-07-25 11:25 | P.NPCON ---
History of Present Illness - Reason for Consult acute renal failure - History of Present Illness Reason for consultation: Acute kidney injury and hyperkalemia History of present illness: Patient is a 82-year-old male seen in renal consultation for acute kidney injury. Patient's baseline creatinine is near 1 and peaked at 2.3 this admission. It is down to 1.66 today. Patient presented to the hospital with dyspnea and is currently being treated for COPD exacerbation. Patient remains dyspneic and underwent a bronchoscopy this morning. He was noted to have quite a bit of retained secretions which were removed. He was subsequently transferred to the intensive care unit. He is currently wearing a BiPAP and is therefore not a very reliable historian. He denies regular use of NSAIDs. He admits to good urine output. No hematuria or dysuria. Denies chest pain. His potassium level was also up to 6.0 as of yesterday which was medically treated. It is down to 4.7 this morning. Bactrim as well as lisinopril have been discontinued. Hemodynamically stable. He is nonoliguric. Vital signs are stable. General: The patient appeared well nourished and normally developed. HEENT: Head exam is unremarkable. Neck is without jugular venous distension. LUNGS: Breath sounds decreased. Scattered rhonchi. HEART: Rate and Rhythm are regular. First and second heart sounds normal. No murmurs, rubs or gallops. ABDOMEN: Abdominal exam reveals normal bowel sounds. Non-tender and non- distended. No evidence of peritonitis. EXTREMITITES: No clubbing, cyanosis, or edema. Past Medical History Past Medical History: Cancer, Chest Pain / Angina, COPD, Deep Vein Thrombosis ( DVT), Hyperlipidemia, Hypertension, Osteoarthritis (OA), Pneumonia Additional Past Medical History / Comment(s): unstable angina pectoris. COPD, purulent tracheobronchitis, chronic bronchitis. hard of hearing in left ear, OA, back pain, pneumonia 2010, home O2 at 2L/NC.prn, bladder cancer History of Any Multi-Drug Resistant Organisms: None Reported Past Surgical History: Bladder Surgery, Tonsillectomy Additional Past Surgical History / Comment(s): vasectomy Past Anesthesia/Blood Transfusion Reactions: No Reported Reaction Smoking Status: Former smoker - Past Family History Father Family Medical History: Cancer Additional Family Medical History / Comment(s): cancer. client reported father had scoliosis. Mother Additional Family Medical History / Comment(s): mother . unknown history Medications and Allergies Home Medications Medication Instructions Recorded Confirmed Type Albuterol Sulfate [Proair Hfa] 2 puff INHALATION RT-Q6H PRN 07/10/15 07/22/17 History Simvastatin [Zocor] 40 mg PO DAILY 07/10/15 07/22/17 History Ipratropium-Albuterol Nebulize 3 ml INHALATION RT-QID 07/11/15 07/22/17 History [Duoneb 0.5 mg-3 mg/3 ml Soln] Fluticasone/Vilanterol [Breo 1 puff INHALATION RT-DAILY 10/05/16 07/22/17 History Ellipta 200-25 Mcg INH] predniSONE 5 mg PO DAILY 10/05/16 07/22/17 History Tamsulosin HCl [Flomax] 0.4 mg PO BID 06/06/17 07/22/17 History Lisinopril [Zestril] 10 mg PO DAILY 07/22/17 07/22/17 History Sulfamethox-Tmp 800-160Mg [Bactrim 1 tab PO Q12HR 07/22/17 07/22/17 History DS 800-160 mg] Allergies Allergy/AdvReac Type Severity Reaction Status Date / Time No Known Allergies Allergy Verified 07/22/17 14:39 Physical Exam Vitals: Vital Signs Temp Pulse Pulse Resp BP BP BP 07/25/17 11:10 101 H 22 143/64 07/25/17 11:00 97.1 F L 107 H 22 143/64 07/25/17 10:45 110 H 07/25/17 10:35 108 H 07/25/17 08:14 97.9 F 95 20 142/80 07/25/17 08:03 100 07/25/17 07:50 100 07/25/17 07:49 100 07/25/17 07:36 96 07/25/17 07:00 97.9 F 95 22 142/80 07/24/17 23:00 97.3 F L 110 H 16 147/65 07/24/17 20:33 108 H 07/24/17 20:23 108 H 07/24/17 20:22 108 H 07/24/17 20:16 106 H 07/24/17 20:15 106 H 07/24/17 19:20 98 07/24/17 19:03 92 07/24/17 16:19 80 07/24/17 16:09 07/24/17 16:06 78 07/24/17 14:55 97.6 F 101 H 22 137/53 07/24/17 12:16 80 07/24/17 12:00 80 Pulse Ox 07/25/17 11:10 97 07/25/17 11:00 96 07/25/17 10:45 07/25/17 10:35 07/25/17 08:14 07/25/17 08:03 07/25/17 07:50 07/25/17 07:49 07/25/17 07:36 07/25/17 07:00 99 07/24/17 23:00 96 07/24/17 20:33 07/24/17 20:23 07/24/17 20:22 07/24/17 20:16 07/24/17 20:15 07/24/17 19:20 07/24/17 19:03 07/24/17 16:19 07/24/17 16:09 97 07/24/17 16:06 07/24/17 14:55 97 07/24/17 12:16 07/24/17 12:00 Intake and Output 07/24/17 07/25/17 07/25/17 22:59 06:59 14:59 Intake Total 400 Output Total 850 1000 1000 Balance -450 -1000 -1000 Intake: Intake, IV Titration 400 Amount Calcium Gluconate 1,000 100 mg In Sodium Chloride 0.9 % 100 ml @ 100 mls/hr IVPB ONCE ONE Rx#: [id number] Sodium Chloride 0.45% 1, 300 000 ml @ 100 mls/hr IV . Q10H [facility] Rx#:[id number] Output: Urine 850 1000 1000 Uretheral (Swartz) 425 Other: Voiding Method Toilet Urinal # Voids 2 # Bowel Movements 1 Results - Lab Results Most recent lab results Calcium 9.4 mg/dL (8.4-10.2) 07/25/17 07:27 Magnesium 2.3 mg/dL (1.6-2.3) 07/22/17 14:30 07/24/17 07:34 07/25/17 07:27 Assessment and Plan Plan: Assessment: #1. Nonoliguric acute kidney injury mostly prerenal from poor oral intake and from use of MICHELE inhibitor as well as Bactrim. Creatinine peaked at 2.3 this admission and is down to 1.66 today. Baseline creatinine is near 1. #2. Acute COPD exacerbation. Status post bronchoscopy this morning. #3. Tracheobronchitis maintained on antibiotics. #4. Hyperkalemia secondary to acute kidney injury and further worsened with the use of lisinopril and Bactrim. Resolved. #5. Bladder cancer. Plan: Maintain half-normal saline to be run at 100 mL an hour. Avoid nephrotoxic agents and hypotensive episodes. Continue to monitor renal function and urine output. Repeat electrolytes in the morning. Thank you for the consultation. I will continue to follow the patient with you during his hospital stay.
[2017-07-25 12:19] LABS: Appearance,Urine Clear (Clear); Bacteria,Urine Occasional /hpf; Bilirubin,Urine Negative (Negative); Blood,Urine Small (Negative); Color,Urine Yellow; Glucose,Urine (UA) Negative (Negative); Hyaline Casts,Urine 40 /lpf (0-2); Ketones,Urine Negative (Negative); Leukocyte Esterase,Urine Small (Negative); Mucus,Urine Rare /hpf; Nitrite,Urine Negative (Negative); PH, Urine 5.5 (5.0-8.0); Protein,Urine Negative (Negative); RBC,Urine 6 /hpf (0-5); Specific Gravity,Urine 1.017 (1.001-1.035); Squamous Epithelial Cell,Urine 4 /hpf (0-4); Urobilinogen,Urine <2.0 mg/dL (<2.0); WBC,Urine 13 /hpf (0-5)
[2017-07-25 15:12] LABS: Appearance,BF Blood Tinged
[2017-07-25 15:13] LABS: Nucleated Cells, Body Fluid 785 /uL; RBC, Body Fluid 4370 /uL
[2017-07-25 15:31] LABS: Mononuclear WBC,Body Fluid 3 %; Polynuclear WBC,Body Fluid 97 %; Total Cells Counted,Body Fluid 100
[2017-07-25 17:32] LABS: Glucose,Whole Blood 129 mg/dL (75-99)
[2017-07-25 21:18] LABS: Glucose,Whole Blood 151 mg/dL (75-99)
[2017-07-26] MEDS: methylPREDNISolone SOD SUCCI 125 MG/2 ML VIAL IV SCH ×5 (00:05→23:13)
[2017-07-26] MEDS: SODIUM CHLORIDE 0.45% 1,000 ML IV SCH ×3 (04:02→15:30)
[2017-07-26] MEDS: IPRATROPIUM-ALBUTEROL 3 ML NEB INHALATION PRN (04:24)
[2017-07-26] MEDS: FORMOTEROL FUMARATE 20 MCG/2 ML NEBU INHALATION SCH ×2 (07:35→20:48)
[2017-07-26] MEDS: BUDESONIDE 1 MG/2 ML NEBU INHALATION SCH ×2 (07:35→20:48)
[2017-07-26] MEDS: IPRATROPIUM-ALBUTEROL 3 ML NEB INHALATION SCH ×4 (07:35→20:48)
[2017-07-26 07:40] LABS: Glucose,Whole Blood 152 mg/dL (75-99)
[2017-07-26] MEDS: INSULIN ASPART 100 UNIT/ML 1 ML 10 ML VIAL SQ SCH ×4 (07:44→21:59)
[2017-07-26] MEDS: CEFUROXIME 250 MG TAB PO SCH ×2 (07:44→22:48)
[2017-07-26] MEDS: ATORVASTATIN 20 MG TAB PO SCH (07:44)
[2017-07-26] MEDS: TAMSULOSIN 0.4 MG CAP.ER.24H PO SCH ×2 (07:45→22:48)
--- NOTE | 2017-07-26 08:38 | P.PN ---
Subjective Principal diagnosis: Continuing care. Exacerbation of COPD. This continue present 82-year-old white male essentially admitted for acute exacerbation of COPD. He is postop day #1 for bronchoscopy. Chest x-ray is now pending. He states he had somewhat of a rough night secondary to heartburn/ reflux esophagitis. Otherwise no new voiding difficulties. No significant nausea or vomiting. He seems somewhat more gasping today. Objective - Vital Signs Vital signs: Vital Signs Temp 97.1 F L 07/26/17 07:00 Pulse 88 07/26/17 08:04 Resp 20 07/26/17 07:00 BP 157/69 07/26/17 07:00 Pulse Ox 96 07/26/17 07:00 Intake & Output 07/25/17 07/26/17 07/26/17 18:59 06:59 18:59 Intake Total 400 350 Output Total 1605 1800 Balance -1205 -1450 Intake: Intake, IV Titration 400 Amount Sodium Chloride 0.45% 1, 400 000 ml @ 100 mls/hr IV . Q10H [facility] Rx#:[id number] Oral 350 Output: Urine 1605 1800 Uretheral (Swartz) 425 Other: Voiding Method Toilet Urinal - Constitutional General appearance: Present: average body habitus - EENT Eyes: Absent: abnormal pupil - Respiratory Respiratory: bilateral: diminished, wheezing - Cardiovascular Rhythm: regular Heart sounds: normal: S1, S2 - Gastrointestinal General gastrointestinal: Present: soft. Absent: tenderness, umbilical hernia - Integumentary Integumentary: Absent: cellulitis - Neurologic Neurologic: Present: CNII-XII intact. Absent: focal deficits - Musculoskeletal Musculoskeletal: Present: gait normal - Psychiatric Psychiatric: Present: A&O x's 3, appropriate affect - Labs CBC & Chem 7: 07/24/17 07:34 07/25/17 07:27 Labs: Abnormal Lab Results - Last 24 Hours (Table) 07/25/17 07/25/17 07/25/17 Range/Units 10:57 12:00 17:13 POC Glucose (mg/dL) 136 H 129 H (75-99) mg/dL Urine Blood Small H (Negative) Ur Leukocyte Esterase Small H (Negative) Urine RBC 6 H (0-5) /hpf Urine WBC 13 H (0-5) /hpf Urine Bacteria Occasional H (None) /hpf Hyaline Casts 40 H (0-2) /lpf Urine Mucus Rare H (None) /hpf 07/25/17 07/26/17 Range/Units 21:05 07:37 POC Glucose (mg/dL) 151 H 152 H (75-99) mg/dL Urine Blood (Negative) Ur Leukocyte Esterase (Negative) Urine RBC (0-5) /hpf Urine WBC (0-5) /hpf Urine Bacteria (None) /hpf Hyaline Casts (0-2) /lpf Urine Mucus (None) /hpf Microbiology - Last 24 Hours (Table) 07/25/17 10:00 Acid Fast Bacilli Smear - Final Bronchial Washings - Left Acid Fast Bacilli Culture - Preliminary 07/25/17 10:00 Gram Stain - Preliminary Bronchial Washings - Left Bronchial Washings Culture - Preliminary 07/25/17 10:00 Fungal Culture - Preliminary Bronchial Washings - Left 07/22/17 14:30 Blood Culture - Preliminary Blood No Growth after 72 hours Assessment and Plan (1) Hypertension Current Visit: Yes Status: Acute Code(s): I10 - ESSENTIAL (PRIMARY) HYPERTENSION SNOMED Code(s): 48704483 (2) Hyperlipidemia Current Visit: Yes Status: Acute Code(s): E78.5 - HYPERLIPIDEMIA, UNSPECIFIED SNOMED Code(s): 82971272 (3) COPD with acute exacerbation Current Visit: Yes Status: Acute Code(s): J44.1 - CHRONIC OBSTRUCTIVE PULMONARY DISEASE W (ACUTE) EXACERBATION SNOMED Code(s): 955829359 (4) Acute hyperkalemia Current Visit: Yes Status: Acute Code(s): E87.5 - HYPERKALEMIA SNOMED Code (s): 7167069 Plan: Continue current regimen or treatment. We will continue steroids at 60 mg every 6 until chest x-ray and more clinical improvement is ascertained. Check CBC and CMP in a.m. secondary to his nonoliguric renal hitch this week. Dr. Vuong's group will be covering for the weekend. Anticipate discharge in next 48-72 hours once we can wean Medrol Dosing. See Orders Otherwise. Time with Patient: Greater than 30
[2017-07-26 09:20] LABS: Anion Gap 8 mmol/L; Blood Urea Nitrogen 45 mg/dL (9-20); Calcium 9.1 mg/dL (8.4-10.2); Carbon Dioxide 32 mmol/L (22-30); Chloride 102 mmol/L (98-107); Glucose 131 mg/dL (74-99); Magnesium 2.4 mg/dL (1.6-2.3); Potassium 4.7 mmol/L (3.5-5.1); Sodium 142 mmol/L (137-145)
--- NOTE | 2017-07-26 09:56 | XR ---
EXAMINATION TYPE: XR chest 2V DATE OF EXAM: 07/26/2017 COMPARISON: 07/22/2017 HISTORY: 82 year-old male shortness of breath TECHNIQUE: Frontal and lateral views FINDINGS: Heart normal size. Mild atherosclerotic arch calcifications. Vasculature within normal limits. Multip le lines projecting at the right base. Strandy atelectasis in the lower lungs. No consolidation or pl eural effusion seen. Nipple shadow at the left base. Mild hyperinflation. IMPRESSION: Correlate for possible underlying COPD. Otherwise, stable exam without acute process seen.
[2017-07-26] MEDS: SODIUM POLYSTYRENE SULFONATE 15 GM/60 ML BOTTLE PO SCH ×2 (10:27→22:47)
--- NOTE | 2017-07-26 11:36 | P.PN ---
Subjective Progress Note Date: 07/26/17 Principal diagnosis: Acute COPD exacerbation, tracheobronchitis, with failed outpatient treatment Iron is a 82-year-old white male patient, who sees Dr. Chavarria in our office for his advanced steroid-dependent COPD, with the baseline FEV1 of 33% predicted value, presented to the emergency room on 07/22/2017 at 1400 with complaints of increasing shortness of breath, wheezing, chest congestion, productive cough with yellow sputum. Denied any fever, did have some chills. Denied any chest pain, hemoptysis. Patient was seen by Dr. Chavarria in the office last Saturday on 07/19/2017 with COPD exacerbation, he was given Depo-Medrol IM, was started on his own taper and Bactrim DS. However over the weekend his symptoms did not improve and actually got worse, and patient did present to the ED for further evaluation and treatment. Chest x-ray from 07/22/2017 shows no evidence for acute pulmonary disease. Lab work showed that CBC within normal limits of 6.3, hemoglobin of 10.5, no evidence of coagulopathy, sodium is 139, potassium is 5.3, BUN of 28, and creatinine is 1.44. CK-MB was 8.3, troponin was negative 1. Follow-up blood work from today still shows normal white count , still with stable hemoglobin of 10.3, sodium of 140, his potassium is slightly increased to 5.7, BUN is 38, creatinine is 1.46. There is evidence of of acute kidney injury, patient denies decreased oral intake, no evidence of hypotension, on presentation to the emergency room, he was actually very hypertensive with a blood pressure of 203/84, but at the time he was in respiratory distress as well, and they're ranging from systolic blood pressure in the 130s to 180s, and diastolic pressure from 60s to 90s. Patient was started on DuoNeb nebulized treatments, IV Solu-Medrol, and admitted to the floor for further management. On 07/24/2017 patient is seen in follow-up. Continues to be significantly congested, wheezy, and rhonchorous. Is not able to bring up much sputum. Patient's vital signs remain stable, on 3 L per nasal cannula he is satting 96% . Afebrile, hemodynamically stable. Today's lab work was reviewed, WBC is 10.1 , hemoglobin is 9.9, sodium is 139, potassium is up to 6.0, there is further worsening of his renal function, his BUN is 54, and creatinine is 1.52. We will ask the attending physician whether he wants to consult nephrology in regards to the patient's worsening renal function. We will go ahead and treat his hyperkalemia, we will stop the lisinopril, and give calcium gluconate 1 g IV piggyback 1, 1 amp of D50, 10 units of Humulin R, and start the patient on Kayexalate 30 g by mouth twice a day. We will recheck his BMP in 4 hours. On 07/26/2017 patient is seen in follow-up on medical surgical floor. Still complains of significant exertional dyspnea, activity limitation. Lung sounds are improved, but still positive for scattered wheezes, and remained diminished overall. Was complaining of heartburn last night. Remains afebrile, vital signs are stable, yesterday after the bronchoscopy he was briefly placed on BiPAP for significant bronchospasm and dyspnea, and monitored in the ICU for a few hours, improved, and transferred back to medical surgical floor. He is currently off BiPAP, on 3 L per nasal cannula, O2 sat at 96%. Bronchial washing cultures are pending. Continue with current medical treatments, not ready for discharge as. We will decrease the IV fluids down KVO. Patient has adequate oral intake. Objective - Vital Signs Vital signs: Vital Signs Temp 97.1 F L 07/26/17 07:00 Pulse 104 H 07/26/17 11:15 Resp 20 07/26/17 07:00 BP 157/69 07/26/17 07:00 Pulse Ox 96 07/26/17 07:00 Intake & Output 07/25/17 07/26/17 07/26/17 18:59 06:59 18:59 Intake Total 400 350 Output Total 1605 1800 Balance -1205 -1450 Intake: Intake, IV Titration 400 Amount Sodium Chloride 0.45% 1, 400 000 ml @ 100 mls/hr IV . Q10H [facility] Rx#:[id number] Oral 350 Output: Urine 1605 1800 Uretheral (Swartz) 425 Other: Voiding Method Toilet Urinal - Exam GENERAL EXAM: Alert, pleasant, thin, 82-year-old white male, mildly short of breath at rest, but fairly comfortable HEAD: Normocephalic/atraumatic. EYES: Normal reaction of pupils, equal size. Conjunctiva pink, sclera white. NOSE: Clear with pink turbinates. THROAT: No erythema or exudates. NECK: No masses, no JVD, no thyroid enlargement, no adenopathy. CHEST: No chest wall deformity. Symmetrical expansion. LUNGS: Equal air entry with scattered wheezing throughout the lung wood. CVS: Regular rate and rhythm, normal S1 and S2, no gallops, no murmurs, no rubs ABDOMEN: Soft, nontender. No hepatosplenomegaly, normal bowel sounds, no guarding or rigidity. EXTREMITIES: No clubbing, no edema, no cyanosis, 2+ pulses and upper and lower extremities. MUSCULOSKELETAL: Muscle strength and tone normal. SPINE: No scoliosis or deformity SKIN: No rashes CENTRAL NERVOUS SYSTEM: Alert and oriented -3. No focal deficits, tone is normal in all 4 extremities. PSYCHIATRIC: Alert and oriented -3. Appropriate affect. Intact judgment and insight. - Labs CBC & Chem 7: 07/24/17 07:34 07/26/17 08:11 Labs: Abnormal Lab Results - Last 24 Hours (Table) 07/25/17 07/25/17 07/25/17 Range/Units 12:00 17:13 21:05 Carbon Dioxide (22-30) mmol/L BUN (9-20) mg/dL Glucose (74-99) mg/dL POC Glucose (mg/dL) 129 H 151 H (75-99) mg/dL Magnesium (1.6-2.3) mg/dL Urine Blood Small H (Negative) Ur Leukocyte Esterase Small H (Negative) Urine RBC 6 H (0-5) /hpf Urine WBC 13 H (0-5) /hpf Urine Bacteria Occasional H (None) /hpf Hyaline Casts 40 H (0-2) /lpf Urine Mucus Rare H (None) /hpf 07/26/17 07/26/17 Range/Units 07:37 08:11 Carbon Dioxide 32 H (22-30) mmol/L BUN 45 H (9-20) mg/dL Glucose 131 H (74-99) mg/dL POC Glucose (mg/dL) 152 H (75-99) mg/dL Magnesium 2.4 H (1.6-2.3) mg/dL Urine Blood (Negative) Ur Leukocyte Esterase (Negative) Urine RBC (0-5) /hpf Urine WBC (0-5) /hpf Urine Bacteria (None) /hpf Hyaline Casts (0-2) /lpf Urine Mucus (None) /hpf Microbiology - Last 24 Hours (Table) 07/25/17 10:00 Acid Fast Bacilli Smear - Final Bronchial Washings - Left Acid Fast Bacilli Culture - Preliminary 07/25/17 10:00 Gram Stain - Preliminary Bronchial Washings - Left Bronchial Washings Culture - Preliminary 07/25/17 10:00 Fungal Culture - Preliminary Bronchial Washings - Left 07/22/17 14:30 Blood Culture - Preliminary Blood No Growth after 72 hours Assessment and Plan Plan: Assessment: #1. Acute COPD exacerbation completed by tracheobronchitis, with failed outpatient treatment, status post bronchoscopy with BAL on 07/25/2017 #2. Advanced steroid dependent COPD, with a baseline FEV1 of 33% of predicted #3. Acute kidney injury, possibly related to administration of Bactrim DS and lisinopril, improving. Bactrim and lisinopril had been discontinued, patient was given IV hydration, on today's blood work BUN is 45, and creatinine is 1.12 #4. Hyperkalemia, possibly related to acute kidney injury or Bactrim and lisinopril therapy, today's blood work shows serum potassium is up to 6.0, Bactrim has been discontinued yesterday, we will stop the lisinopril, we will treat the hyperkalemia. Improved, today's potassium is 4.7. #5. nicotine dependence, currently in remission, #6. hyperlipidemia #7. Hypertension #8. Neoplasm of bladder #9. History of deep venous thrombosis Plan: Patient is status post bronchoscopy with BAL on 07/25/2017. Did require brief BiPAP therapy for significant bronchospasm after the bronchoscopy, was monitored for a few hours in the ICU, improved, placed back on nasal cannula and transferred back to the medical surgical floor last night. Sounds better today, although remains significantly dyspneic with any exertion, and the wheezing persists although improved. Continue DuoNeb nebulized treatments, Pulmicort and Perforomist. Continue IV Solu-Medrol, Ceftin. Patient's renal profile is improving, BUN is down to 45, creatinine is 1.12. Patient is having adequate oral intake, we will decrease his IV fluids down to KVO. Chest x-ray was reviewed and shows underlying COPD, without any acute process. I performed a history & physical examination of the patient and discussed their management with my nurse practitioner, Dora Abarca. I reviewed the nurse practitioner's note and agree with the documented findings and plan of care. Lung sounds are positive for diffuse wheezes. The findings and the impression was discussed with the patient. I attest to the documentation by the nurse practitioner. Time with Patient: Less than 30
[2017-07-26 12:17] LABS: Glucose,Whole Blood 149 mg/dL (75-99)
--- NOTE | 2017-07-26 14:24 | P.PN ---
Subjective Patient is seen in follow-up for acute kidney injury. Renal function is improving with creatinine down to 1.12 today. Patient's currently being treated for COPD. He underwent a bronchoscopy yesterday with secretions removed. He does admit to a cough. Still has dyspnea but improved compared to yesterday. No vomiting or diarrhea. Oral intake is fair. Admits to good urine output. Vital signs are stable. General: The patient appeared well nourished and normally developed. HEENT: Head exam is unremarkable. Neck is without jugular venous distension. LUNGS: Breath sounds decreased. Scattered rhonchi. HEART: Rate and Rhythm are regular. First and second heart sounds normal. No murmurs, rubs or gallops. ABDOMEN: Abdominal exam reveals normal bowel sounds. Non-tender and non- distended. No evidence of peritonitis. EXTREMITITES: No clubbing, cyanosis, or edema. Objective - Vital Signs Vital signs: Vital Signs Temp 97.1 F L 07/26/17 07:00 Pulse 108 H 07/26/17 11:29 Resp 20 07/26/17 07:00 BP 157/69 07/26/17 07:00 Pulse Ox 96 07/26/17 07:00 Intake & Output 07/25/17 07/26/17 07/26/17 18:59 06:59 18:59 Intake Total 400 350 Output Total 1605 1800 Balance -1205 -1450 Intake: Intake, IV Titration 400 Amount Sodium Chloride 0.45% 1, 400 000 ml @ 100 mls/hr IV . Q10H [facility] Rx#:[id number] Oral 350 Output: Urine 1605 1800 Uretheral (Swartz) 425 Other: Voiding Method Toilet Urinal - Labs CBC & Chem 7: 07/24/17 07:34 07/26/17 08:11 Labs: Abnormal Lab Results - Last 24 Hours (Table) 07/25/17 07/25/17 07/26/17 Range/Units 17:13 21:05 07:37 Carbon Dioxide (22-30) mmol/L BUN (9-20) mg/dL Glucose (74-99) mg/dL POC Glucose (mg/dL) 129 H 151 H 152 H (75-99) mg/dL Magnesium (1.6-2.3) mg/dL 07/26/17 07/26/17 Range/Units 08:11 12:10 Carbon Dioxide 32 H (22-30) mmol/L BUN 45 H (9-20) mg/dL Glucose 131 H (74-99) mg/dL POC Glucose (mg/dL) 149 H (75-99) mg/dL Magnesium 2.4 H (1.6-2.3) mg/dL Microbiology - Last 24 Hours (Table) 07/25/17 10:00 Acid Fast Bacilli Smear - Final Bronchial Washings - Left Acid Fast Bacilli Culture - Preliminary 07/25/17 10:00 Gram Stain - Preliminary Bronchial Washings - Left Bronchial Washings Culture - Preliminary 07/25/17 10:00 Fungal Culture - Preliminary Bronchial Washings - Left 07/22/17 14:30 Blood Culture - Preliminary Blood No Growth after 72 hours Assessment and Plan Plan: Assessment: #1. Nonoliguric acute kidney injury mostly prerenal from poor oral intake and from use of MICHELE inhibitor as well as Bactrim. Creatinine peaked at 2.3 this admission and is down to 1.12 today. Baseline creatinine is near 1. #2. Acute COPD exacerbation. Status post bronchoscopy 07/25/17. #3. Tracheobronchitis maintained on antibiotics. #4. Hyperkalemia secondary to acute kidney injury and further worsened with the use of lisinopril and Bactrim. Resolved. #5. Bladder cancer. Plan: Hep-Lock IV fluids. Encouraged oral intake. Avoid nephrotoxic agents and hypotensive episodes. Continue to monitor renal function and urine output. Repeat electrolytes in the morning.
[2017-07-26 17:11] LABS: Glucose,Whole Blood 122 mg/dL (75-99)
[2017-07-26 20:49] LABS: Glucose,Whole Blood 139 mg/dL (75-99)
[2017-07-27] MEDS: methylPREDNISolone SOD SUCCI 125 MG/2 ML VIAL IV SCH ×2 (05:23→12:23)
[2017-07-27 07:07] LABS: Glucose,Whole Blood 141 mg/dL (75-99)
[2017-07-27 08:04] LABS: Anisocytosis Slight; HCT 33.3 % (39.0-53.0); Hypochromasia Moderate; MCH 27.3 pg (25.0-35.0); MCV 91.2 fL (80.0-100.0); Mean Platelet Volume 7.1; Platelet Count 411 k/uL (150-450); RBC 3.65 m/uL (4.30-5.90); RDW 16.2 % (11.5-15.5); WBC 6.8 k/uL (3.8-10.6)
[2017-07-27] MEDS: SODIUM POLYSTYRENE SULFONATE 15 GM/60 ML BOTTLE PO SCH ×2 (08:04→21:50)
[2017-07-27] MEDS: CEFUROXIME 250 MG TAB PO SCH ×2 (08:04→21:49)
[2017-07-27] MEDS: TAMSULOSIN 0.4 MG CAP.ER.24H PO SCH ×2 (08:04→21:49)
[2017-07-27] MEDS: INSULIN ASPART 100 UNIT/ML 1 ML 10 ML VIAL SQ SCH ×4 (08:05→21:49)
[2017-07-27] MEDS: ATORVASTATIN 20 MG TAB PO SCH (08:05)
[2017-07-27] MEDS: BUDESONIDE 1 MG/2 ML NEBU INHALATION SCH (08:12)
[2017-07-27] MEDS: FORMOTEROL FUMARATE 20 MCG/2 ML NEBU INHALATION SCH (08:12)
[2017-07-27] MEDS: IPRATROPIUM-ALBUTEROL 3 ML NEB INHALATION SCH ×4 (08:12→20:39)
[2017-07-27 08:35] LABS: ALT 49 U/L (21-72); AST 52 U/L (17-59); Albumin 3.3 g/dL (3.5-5.0); Alkaline Phosphatase 50 U/L (38-126); Anion Gap 6 mmol/L; Blood Urea Nitrogen 42 mg/dL (9-20); Calcium 8.7 mg/dL (8.4-10.2); Carbon Dioxide 35 mmol/L (22-30); Chloride 102 mmol/L (98-107); Glucose 129 mg/dL (74-99); Potassium 4.6 mmol/L (3.5-5.1); Sodium 143 mmol/L (137-145); Total Bilirubin 0.3 mg/dL (0.2-1.3); Total Protein 6.1 g/dL (6.3-8.2)
[2017-07-27 12:11] LABS: Glucose,Whole Blood 128 mg/dL (75-99)
--- NOTE | 2017-07-27 13:22 | P.PN ---
Subjective Progress Note Date: 07/27/17 Principal diagnosis: COPD exacerbation Progress note dated 07/27/2017 The patient is doing much better today. Feeling much better. Today he is in the room with his 3 daughters. The patient underwent bronchoscopy on . He developed some acute bronchospasm after the procedure and we kept him up into the ICU for about 6-8 hours on BiPAP. He recovered nicely was transferred back down to the fourth floor. He likely could be discharged home in a day or so. We'll look his medications since make the appropriate changes. The patient 's coughing a bit. Not producing any phlegm. Much less short of breath. The patient had a good night last night. Patient's not having any fever or chills. No chest pain. No nausea vomiting or diarrhea. As I mentioned, he sitting at side of the bed talking to his 3 daughters. Objective - Vital Signs Vital signs: Vital Signs Temp 97.2 F L 07/27/17 06:05 Pulse 92 07/27/17 11:39 Resp 16 07/27/17 08:00 BP 159/78 07/27/17 06:05 Pulse Ox 97 07/27/17 06:05 Intake & Output 07/26/17 07/27/17 07/27/17 18:59 06:59 18:59 Intake Total 800 Output Total 400 Balance 800 -400 Intake: Oral 800 Output: Urine 400 Other: Voiding Method Toilet Urinal Urinal # Voids 1 1 - Exam No acute distress, oriented 3. HEENT examination is grossly unremarkable. Mucous membranes are moist. No oral lesions. Neck supple. Full range of motion. No adenopathy thyromegaly or neck vein distention. Cardiovascular examination reveals regular rhythm rate. S1-S2 normal. No S3 or S4. No discernible murmur noted. Lungs reveal diffuse bilateral rhonchi. Breath sounds are coarse. This prolongation on forced maneuver. There is some expiratory wheezing. No crackles.. Abdomen soft bowel sounds are heard. No masses or tenderness. Extremities are intact. No cyanosis clubbing or edema. Skin is without rash or lesion. Neurologic examination is brief but nonfocal. - Labs CBC & Chem 7: 07/27/17 07:50 07/27/17 07:50 Labs: Abnormal Lab Results - Last 24 Hours (Table) 07/25/17 07/26/17 07/26/17 Range/Units 10:00 17:08 20:47 RBC (4.30-5.90) m/uL Hgb (13.0-17.5) gm/dL Hct (39.0-53.0) % MCHC (31.0-37.0) g/dL RDW (11.5-15.5) % Carbon Dioxide (22-30) mmol/L BUN (9-20) mg/dL Glucose (74-99) mg/dL POC Glucose (mg/dL) 122 H 139 H (75-99) mg/dL Total Protein (6.3-8.2) g/dL Albumin (3.5-5.0) g/dL Viral Test See Below H 07/27/17 07/27/17 07/27/17 Range/Units 07:05 07:50 07:50 RBC 3.65 L (4.30-5.90) m/uL Hgb 10.0 L (13.0-17.5) gm/dL Hct 33.3 L (39.0-53.0) % MCHC 30.0 L (31.0-37.0) g/dL RDW 16.2 H (11.5-15.5) % Carbon Dioxide 35 H (22-30) mmol/L BUN 42 H (9-20) mg/dL Glucose 129 H (74-99) mg/dL POC Glucose (mg/dL) 141 H (75-99) mg/dL Total Protein 6.1 L (6.3-8.2) g/dL Albumin 3.3 L (3.5-5.0) g/dL Viral Test 07/27/17 Range/Units 12:08 RBC (4.30-5.90) m/uL Hgb (13.0-17.5) gm/dL Hct (39.0-53.0) % MCHC (31.0-37.0) g/dL RDW (11.5-15.5) % Carbon Dioxide (22-30) mmol/L BUN (9-20) mg/dL Glucose (74-99) mg/dL POC Glucose (mg/dL) 128 H (75-99) mg/dL Total Protein (6.3-8.2) g/dL Albumin (3.5-5.0) g/dL Viral Test Microbiology - Last 24 Hours (Table) 07/25/17 10:00 Gram Stain - Final Bronchial Washings - Left Bronchial Washings Culture - Final 07/22/17 14:30 Blood Culture - Preliminary Blood No Growth after 96 hours Assessment and Plan Assessment: Assessment COPD exacerbation, treated by tracheobronchitis, status post bronchoscopy on July 25 with subsequent bronchospasm requiring a short stay in the intensive care unit Advanced steroid and oxygen dependent COPD Acute kidney injury Hyperkalemia Previous history of heavy tobacco use Hyperlipidemia Hypertension 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 We'll continue to monitor his medications vital signs and so forth. The patient's bronchus results will be monitored and followed. Additional recommendations and suggestions are forthcoming. Hopeful discharge in next 24-48 hours or sooner. Time with Patient: Less than 30
[2017-07-27 17:35] LABS: Glucose,Whole Blood 119 mg/dL (75-99)
[2017-07-27] MEDS: SYMBICORT 160-4.5 MCG INHALER INHALATION SCH (20:39)
[2017-07-27 20:55] LABS: Glucose,Whole Blood 176 mg/dL (75-99)
[2017-07-27] MEDS: SODIUM CHLORIDE 0.45% 1,000 ML IV SCH (21:49)
[2017-07-28 07:28] LABS: Glucose,Whole Blood 87 mg/dL (75-99)
[2017-07-28] MEDS: IPRATROPIUM-ALBUTEROL 3 ML NEB INHALATION SCH ×4 (08:13→19:43)
[2017-07-28] MEDS: SYMBICORT 160-4.5 MCG INHALER INHALATION SCH ×2 (08:13→19:43)
[2017-07-28] MEDS: CEFUROXIME 250 MG TAB PO SCH ×2 (08:27→20:40)
[2017-07-28] MEDS: SODIUM POLYSTYRENE SULFONATE 15 GM/60 ML BOTTLE PO SCH ×2 (08:27→20:41)
[2017-07-28] MEDS: predniSONE 20 MG TAB PO SCH (08:27)
[2017-07-28] MEDS: TAMSULOSIN 0.4 MG CAP.ER.24H PO SCH ×2 (08:27→20:40)
[2017-07-28] MEDS: ATORVASTATIN 20 MG TAB PO SCH (08:27)
[2017-07-28] MEDS: INSULIN ASPART 100 UNIT/ML 1 ML 10 ML VIAL SQ SCH ×4 (08:28→20:58)
[2017-07-28 12:16] LABS: Glucose,Whole Blood 135 mg/dL (75-99)
--- NOTE | 2017-07-28 13:17 | P.PN ---
Subjective Progress Note Date: 07/28/17 Principal diagnosis: COPD exacerbation Progress note dated 07/27/2017 The patient is doing much better today. Feeling much better. Today he is in the room with his 3 daughters. The patient underwent bronchoscopy on . He developed some acute bronchospasm after the procedure and we kept him up into the ICU for about 6-8 hours on BiPAP. He recovered nicely was transferred back down to the fourth floor. He likely could be discharged home in a day or so. We'll look his medications since make the appropriate changes. The patient 's coughing a bit. Not producing any phlegm. Much less short of breath. The patient had a good night last night. Patient's not having any fever or chills. No chest pain. No nausea vomiting or diarrhea. As I mentioned, he sitting at side of the bed talking to his 3 daughters. Progress note dated 07/28/2017 82-year-old male admitted with a diagnosis of COPD exacerbation. The patient underwent bronchoscopy a couple days back. Feeling much better. He had lots of secretions in the lower respiratory tract. There were suctioned. Cultures are currently pending or negative. His breathing is much improved. He still coughing. So short of breath. He likely can be discharged in 24-48 hours. Other than that the patient seemed be doing relatively well. We'll make sure that he follows up with us in the office. Denies any fever chills. No chest pain. No chest discomfort. Objective - Vital Signs Vital signs: Vital Signs Temp 96.7 F L 07/28/17 07:00 Pulse 96 07/28/17 11:34 Resp 22 07/28/17 07:00 BP 149/89 07/28/17 07:00 Pulse Ox 98 07/28/17 07:00 Intake & Output 07/27/17 07/28/17 07/28/17 18:59 06:59 18:59 Intake Total 200 Output Total 400 Balance -400 200 Intake: Oral 200 Output: Urine 400 Other: # Voids 3 2 1 - Exam No acute distress, oriented 3. HEENT examination is grossly unremarkable. Mucous membranes are moist. No oral lesions. Neck supple. Full range of motion. No adenopathy thyromegaly or neck vein distention. Cardiovascular examination reveals regular rhythm rate. S1-S2 normal. No S3 or S4. No discernible murmur noted. Lungs reveal diffuse bilateral rhonchi. Breath sounds are coarse. This prolongation on forced maneuver. There is some expiratory wheezing. No crackles.. Abdomen soft bowel sounds are heard. No masses or tenderness. Extremities are intact. No cyanosis clubbing or edema. Skin is without rash or lesion. Neurologic examination is brief but nonfocal. - Labs CBC & Chem 7: 07/27/17 07:50 07/27/17 07:50 Labs: Abnormal Lab Results - Last 24 Hours (Table) 07/27/17 07/27/17 07/28/17 Range/Units 17:30 20:54 12:11 POC Glucose (mg/dL) 119 H 176 H 135 H (75-99) mg/dL Microbiology - Last 24 Hours (Table) 07/22/17 14:30 Blood Culture - Preliminary Blood No Growth after 120 hours 07/25/17 10:00 Gram Stain - Final Bronchial Washings - Left Bronchial Washings Culture - Final Assessment and Plan Assessment: Assessment COPD exacerbation, treated by tracheobronchitis, status post bronchoscopy on July 25 with subsequent bronchospasm requiring a short stay in the intensive care unit Advanced steroid and oxygen dependent COPD Acute kidney injury Hyperkalemia Previous history of heavy tobacco use Hyperlipidemia Hypertension 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 We'll continue to monitor his medications vital signs and so forth. The patient's bronchus results will be monitored and followed. Additional recommendations and suggestions are forthcoming. Hopeful discharge in next 24-48 hours or sooner. Plan dated 07/28/2017 The patient will likely be discharged in the next 24-48 hours. Labs x-rays and medications as well as bronchial results are all reviewed. The patient had a good night last night. Seemed be moving in the right direction. No discharge recommendations are made. Time with Patient: Less than 30
[2017-07-28 17:24] LABS: Glucose,Whole Blood 121 mg/dL (75-99)
[2017-07-28] MEDS: SODIUM CHLORIDE 0.45% 1,000 ML IV SCH (18:38)
[2017-07-28 20:40] LABS: Glucose,Whole Blood 174 mg/dL (75-99)
--- NOTE | 2017-07-29 00:33 | P.PN ---
Subjective Progress Note Date: 07/27/17 Principal diagnosis: Acute COPD exacerbation This continue present 82-year-old white male essentially admitted for acute exacerbation of COPD. He is postop day #2 for bronchoscopy. Chest x-ray howed correlated for COPD. on 07/27/2017 Patient continues to have The patient is doing much better today. Feeling much better. Today he is in the room with his 3 daughters. The patient underwent bronchoscopy on . He developed some acute bronchospasm after the procedure and we kept him up into the ICU for about 6-8 hours on BiPAP. He recovered nicely was transferred back down to the fourth floor. He likely could be discharged home in a day or so. We'll look his medications since make the appropriate changes. The patient 's coughing a bit. Not producing any phlegm. Much less short of breath. The patient had a good night last night. Patient's not having any fever or chills. No chest pain. No nausea vomiting or diarrhea. As I mentioned, he sitting at side of the bed talking to his 3 daughters. Objective - Vital Signs Vital signs: Vital Signs Temp 97.9 F 07/27/17 15:00 Pulse 96 07/27/17 20:56 Resp 16 07/27/17 16:00 BP 137/76 07/27/17 15:00 Pulse Ox 97 07/27/17 20:40 Intake & Output 07/27/17 07/27/17 07/28/17 06:59 18:59 06:59 Output Total 400 Balance -400 Output: Urine 400 Other: Voiding Method Urinal # Voids 1 3 - Labs CBC & Chem 7: 07/27/17 07:50 07/27/17 07:50 Labs: Abnormal Lab Results - Last 24 Hours (Table) 07/27/17 07/27/17 07/27/17 Range/Units 07:05 07:50 07:50 RBC 3.65 L (4.30-5.90) m/uL Hgb 10.0 L (13.0-17.5) gm/dL Hct 33.3 L (39.0-53.0) % MCHC 30.0 L (31.0-37.0) g/dL RDW 16.2 H (11.5-15.5) % Carbon Dioxide 35 H (22-30) mmol/L BUN 42 H (9-20) mg/dL Glucose 129 H (74-99) mg/dL POC Glucose (mg/dL) 141 H (75-99) mg/dL Total Protein 6.1 L (6.3-8.2) g/dL Albumin 3.3 L (3.5-5.0) g/dL 07/27/17 07/27/17 07/27/17 Range/Units 12:08 17:30 20:54 RBC (4.30-5.90) m/uL Hgb (13.0-17.5) gm/dL Hct (39.0-53.0) % MCHC (31.0-37.0) g/dL RDW (11.5-15.5) % Carbon Dioxide (22-30) mmol/L BUN (9-20) mg/dL Glucose (74-99) mg/dL POC Glucose (mg/dL) 128 H 119 H 176 H (75-99) mg/dL Total Protein (6.3-8.2) g/dL Albumin (3.5-5.0) g/dL Microbiology - Last 24 Hours (Table) 07/22/17 14:30 Blood Culture - Preliminary Blood No Growth after 120 hours 07/25/17 10:00 Gram Stain - Final Bronchial Washings - Left Bronchial Washings Culture - Final Assessment and Plan Assessment: Acute COPD exacerbation due totracheobronchitis status post bronchoscopyon July 25 chronichypoxic respiratory failure steroids and home oxygen dependent Acute kidney injury due to Bactrim and ACEI Hyperkalemia secondary to acute kidney injury istory of smoking Hypertension hyperlipidemia bladder cancer ormocytic anemia History of DVT Patient be continued on steroids and breathing treatments and follow closely.continue with antibiotics in the form of Ceftin. BAL fluid cultures have been negative so far. pulmonary and nephrology is following. Patient is improving slowly Further recommendations based on the clinical course. Time with Patient: Greater than 30
--- NOTE | 2017-07-29 00:37 | P.PN ---
Subjective Progress Note Date: 07/28/17 Principal diagnosis: Acute COPD exacerbation This continue present 82-year-old white male essentially admitted for acute exacerbation of COPD. He is postop day #3 for bronchoscopy. patient was briefly in the due to acute bronchospasm after the procedure. Chest x-ray howed correlated for COPD. on 07/28/2017 Patient continues to improve slowly. Steroids have been changed to oral now. renal function is much improved. Patient's not having any fever or chills. No chest pain. No nausea vomiting or diarrhea. all otherreview of systems negative except the above current medications reviewed Objective - Vital Signs Vital signs: Vital Signs Temp 97.7 F 07/28/17 15:00 Pulse 86 07/28/17 20:03 Resp 18 07/28/17 16:00 BP 145/75 07/28/17 15:00 Pulse Ox 91 L 07/28/17 15:20 Intake & Output 07/28/17 07/28/17 07/29/17 06:59 18:59 06:59 Intake Total 400 320 Output Total 400 Balance -400 400 320 Intake: Oral 400 320 Output: Urine 400 Other: # Voids 2 2 2 - Exam PHYSICAL EXAMINATION: Patient is lying in the bed comfortably, no acute distress, awake alert and oriented.. HEENT: Normocephalic. Neck is supple. Pupils reactive. Nostrils clear. Oral cavity is moist. Ears reveal no drainage. Neck reveals no JVD, carotid bruits, or thyromegaly. CHEST EXAMINATION: Trachea is central. Symmetrical expansion. Bilateral diffuse wheezing. CARDIAC: Normal S1, S2 with no gallops. No murmurs ABDOMEN: Soft. Bowel sounds normal. No organomegaly. No abdominal bruits. Extremities: reveal no edema. No clubbing or cyanosis Neurologically awake, alert, oriented x3 with well-coordinated movements. No focal deficits noted Skin: No rash or skin lesions. Psychiatric: Coperative. Nonsuicidal Musculoskeletal: No joint swelling or deformity. Normal range of motion. - Labs CBC & Chem 7: 07/27/17 07:50 07/27/17 07:50 Labs: Abnormal Lab Results - Last 24 Hours (Table) 07/28/17 07/28/17 07/28/17 Range/Units 12:11 17:20 20:15 POC Glucose (mg/dL) 135 H 121 H 174 H (75-99) mg/dL Microbiology - Last 24 Hours (Table) 07/22/17 14:30 Blood Culture - Final Blood No Growth after 144 hours Assessment and Plan Assessment: Acute COPD exacerbation due totracheobronchitis status post bronchoscopyon July 25 chronichypoxic respiratory failure steroids and home oxygen dependent Acute kidney injury due to Bactrim and ACEI Improved Hyperkalemia secondary to acute kidney injury istory of smoking Hypertension hyperlipidemia bladder cancer ormocytic anemia History of DVT Patient be continued on steroids and breathing treatments and follow closely.continue with antibiotics in the form of Ceftin. BAL fluid cultures have been negative so far. pulmonary and nephrology is following. Patient is improving slowly Further recommendations based on the clinical course.
[2017-07-29 07:54] LABS: Glucose,Whole Blood 78 mg/dL (75-99)
[2017-07-29 08:00] VITALS: BP 158/95; RESP 18; TEMP 97.2
[2017-07-29] MEDS: SYMBICORT 160-4.5 MCG INHALER INHALATION SCH (08:08)
[2017-07-29] MEDS: IPRATROPIUM-ALBUTEROL 3 ML NEB INHALATION SCH (08:08)
[2017-07-29 08:20] VITALS: PULSE 90
[2017-07-29] MEDS: SODIUM POLYSTYRENE SULFONATE 15 GM/60 ML BOTTLE PO SCH (08:31)
[2017-07-29] MEDS: ATORVASTATIN 20 MG TAB PO SCH (08:31)
[2017-07-29] MEDS: predniSONE 20 MG TAB PO SCH (08:31)
[2017-07-29] MEDS: TAMSULOSIN 0.4 MG CAP.ER.24H PO SCH (08:31)
[2017-07-29] MEDS: INSULIN ASPART 100 UNIT/ML 1 ML 10 ML VIAL SQ SCH (08:31)
[2017-07-29] MEDS: CEFUROXIME 250 MG TAB PO SCH (08:31)
--- NOTE | 2017-07-29 10:18 | P.PN ---
Subjective Progress Note Date: 07/29/17 Principal diagnosis: Acute COPD exacerbation, tracheobronchitis, with failed outpatient treatment Iron is a 82-year-old white male patient, who sees Dr. Chavarria in our office for his advanced steroid-dependent COPD, with the baseline FEV1 of 33% predicted value, presented to the emergency room on 07/22/2017 at 1400 with complaints of increasing shortness of breath, wheezing, chest congestion, productive cough with yellow sputum. Denied any fever, did have some chills. Denied any chest pain, hemoptysis. Patient was seen by Dr. Chavarria in the office last Saturday on 07/19/2017 with COPD exacerbation, he was given Depo-Medrol IM, was started on his own taper and Bactrim DS. However over the weekend his symptoms did not improve and actually got worse, and patient did present to the ED for further evaluation and treatment. Chest x-ray from 07/22/2017 shows no evidence for acute pulmonary disease. Lab work showed that CBC within normal limits of 6.3, hemoglobin of 10.5, no evidence of coagulopathy, sodium is 139, potassium is 5.3, BUN of 28, and creatinine is 1.44. CK-MB was 8.3, troponin was negative 1. Follow-up blood work from today still shows normal white count , still with stable hemoglobin of 10.3, sodium of 140, his potassium is slightly increased to 5.7, BUN is 38, creatinine is 1.46. There is evidence of of acute kidney injury, patient denies decreased oral intake, no evidence of hypotension, on presentation to the emergency room, he was actually very hypertensive with a blood pressure of 203/84, but at the time he was in respiratory distress as well, and they're ranging from systolic blood pressure in the 130s to 180s, and diastolic pressure from 60s to 90s. Patient was started on DuoNeb nebulized treatments, IV Solu-Medrol, and admitted to the floor for further management. On 07/24/2017 patient is seen in follow-up. Continues to be significantly congested, wheezy, and rhonchorous. Is not able to bring up much sputum. Patient's vital signs remain stable, on 3 L per nasal cannula he is satting 96% . Afebrile, hemodynamically stable. Today's lab work was reviewed, WBC is 10.1 , hemoglobin is 9.9, sodium is 139, potassium is up to 6.0, there is further worsening of his renal function, his BUN is 54, and creatinine is 1.52. We will ask the attending physician whether he wants to consult nephrology in regards to the patient's worsening renal function. We will go ahead and treat his hyperkalemia, we will stop the lisinopril, and give calcium gluconate 1 g IV piggyback 1, 1 amp of D50, 10 units of Humulin R, and start the patient on Kayexalate 30 g by mouth twice a day. We will recheck his BMP in 4 hours. On 07/26/2017 patient is seen in follow-up on medical surgical floor. Still complains of significant exertional dyspnea, activity limitation. Lung sounds are improved, but still positive for scattered wheezes, and remained diminished overall. Was complaining of heartburn last night. Remains afebrile, vital signs are stable, yesterday after the bronchoscopy he was briefly placed on BiPAP for significant bronchospasm and dyspnea, and monitored in the ICU for a few hours, improved, and transferred back to medical surgical floor. He is currently off BiPAP, on 3 L per nasal cannula, O2 sat at 96%. Bronchial washing cultures are pending. Continue with current medical treatments, not ready for discharge as. We will decrease the IV fluids down KVO. Patient has adequate oral intake. On 07/29/2017 patient seen in follow-up on medical surgical floor. Doing much better, denies any worsening dyspnea. Has been ambulating with in the room, tolerating well. Lung sounds are for a few scattered end expiratory wheezes, but good air entry noted bilaterally. Afebrile, vital signs are stable, currently on 2 per nasal cannula with O2 sat at 97%. Bronchial washing cultures positive for moderate normal respiratory justin, blood cultures negative. Currently on oral Ceftin, nebulized treatments, and oral prednisone. From pulmonary standpoint he is stable for discharge home today. He'll need a follow-up appointment with Dr. Chavarria in the office in one week. Objective - Vital Signs Vital signs: Vital Signs Temp 97.2 F L 07/29/17 07:00 Pulse 90 07/29/17 08:19 Resp 18 07/29/17 07:00 BP 158/95 07/29/17 07:00 Pulse Ox 97 07/29/17 07:00 Intake & Output 07/28/17 07/29/17 07/29/17 18:59 06:59 18:59 Intake Total 400 420 Balance 400 420 Intake: Oral 400 420 Other: # Voids 2 2 - Exam GENERAL EXAM: Alert, pleasant, thin, 82-year-old white male, mildly short of breath at rest, but fairly comfortable HEAD: Normocephalic/atraumatic. EYES: Normal reaction of pupils, equal size. Conjunctiva pink, sclera white. NOSE: Clear with pink turbinates. THROAT: No erythema or exudates. NECK: No masses, no JVD, no thyroid enlargement, no adenopathy. CHEST: No chest wall deformity. Symmetrical expansion. LUNGS: Equal air entry with scattered wheezing throughout the lung wood. CVS: Regular rate and rhythm, normal S1 and S2, no gallops, no murmurs, no rubs ABDOMEN: Soft, nontender. No hepatosplenomegaly, normal bowel sounds, no guarding or rigidity. EXTREMITIES: No clubbing, no edema, no cyanosis, 2+ pulses and upper and lower extremities. MUSCULOSKELETAL: Muscle strength and tone normal. SPINE: No scoliosis or deformity SKIN: No rashes CENTRAL NERVOUS SYSTEM: Alert and oriented -3. No focal deficits, tone is normal in all 4 extremities. PSYCHIATRIC: Alert and oriented -3. Appropriate affect. Intact judgment and insight. - Labs CBC & Chem 7: 07/27/17 07:50 07/27/17 07:50 Labs: Abnormal Lab Results - Last 24 Hours (Table) 07/28/17 07/28/17 07/28/17 Range/Units 12:11 17:20 20:15 POC Glucose (mg/dL) 135 H 121 H 174 H (75-99) mg/dL Microbiology - Last 24 Hours (Table) 07/22/17 14:30 Blood Culture - Final Blood No Growth after 144 hours Assessment and Plan Plan: Assessment: #1. Acute COPD exacerbation completed by tracheobronchitis, with failed outpatient treatment, status post bronchoscopy with BAL on 07/25/2017 #2. Advanced steroid dependent COPD, with a baseline FEV1 of 33% of predicted #3. Acute kidney injury, possibly related to administration of Bactrim DS and lisinopril, improved. #4. Hyperkalemia, possibly related to acute kidney injury or Bactrim and lisinopril therapy, today's blood work shows serum potassium is up to 6.0, Bactrim has been discontinued yesterday, we will stop the lisinopril, we will treat the hyperkalemia. Improved, today's potassium is 4.6. #5. nicotine dependence, currently in remission, #6. hyperlipidemia #7. Hypertension #8. Neoplasm of bladder #9. History of deep venous thrombosis Plan: Is doing well, denies any worsening dyspnea, vital signs are stable, improved and cautioned cultures remain negative so far. Pulmonary standpoint he stable for discharge home today, finish outpatient course of Ceftin, prednisone taper, continue maintenance inhalers and nebulized treatments. Follow-up with Dr. Chavarria in the office in one week. I performed a history & physical examination of the patient and discussed their management with my nurse practitioner, Dora Abarca. I reviewed the nurse practitioner's note and agree with the documented findings and plan of care. Lung sounds are positive for few scattered wheezes. The findings and the impression was discussed with the patient. I attest to the documentation by the nurse practitioner. Time with Patient: Less than 30
--- NOTE | 2017-08-18 18:30 | P.DS ---
Providers Date of admission: 07/22/17 16:12 Attending physician: Lobo Elizabeth Consults: 07/23/17 07:17 Consult Physician Routine Consulting Provider: Rey Chavarria Consult Reason/Comments: COPD exacerbation Do you want consulting provider notified?: Yes 07/24/17 14:52 Consult Physician Urgent Consulting Provider: Issa Mendieta Consult Reason/Comments: elevated potassium, BUN and Cr. Do you want consulting provider notified?: Yes Primary care physician: Lobo Elizabeth - Discharge Diagnosis(es) (1) Hypertension Status: Acute (2) Hyperlipidemia Status: Acute (3) COPD with acute exacerbation Status: Acute (4) Acute hyperkalemia Status: Acute Hospital Course: This is discharge summary an 82-year-old white maleWho was essentially admitted for recurrent exacerbation of COPD.The patient was stabilized appropriately and on oral steroids prior to discharge. The patient is somewhat guarded secondary to the multiple comorbidities that he has an he is a longtime smoker and has had multiple episodes of COPD exacerbation over the last several years. Plan - Discharge Summary Discharge Rx Participant: Yes New Discharge Prescriptions: Continue Albuterol Sulfate [Proair Hfa] 2 puff INHALATION RT-Q6H PRN PRN Reason: Shortness Of Breath Simvastatin [Zocor] 40 mg PO DAILY Ipratropium-Albuterol Nebulize [Duoneb 0.5 mg-3 mg/3 ml Soln] 3 ml INHALATION RT-QID predniSONE 5 mg PO DAILY Fluticasone/Vilanterol [Breo Ellipta 200-25 Mcg INH] 1 puff INHALATION RT- DAILY Tamsulosin HCl [Flomax] 0.4 mg PO BID No Action Potassium Chloride ER [K-Dur 20] 20 meq PO DAILY Lisinopril-Hctz 20-12.5 mg [Zestoretic 20-12.5] 1 tab PO DAILY Furosemide [Lasix] 20 mg PO DAILY Umeclidinium [place] [Incruse Ellipta] 1 puff INHALATION RT-DAILY Discharge Medication List Albuterol Sulfate [Proair Hfa] 2 puff INHALATION RT-Q6H PRN 07/10/15 [History] Simvastatin [Zocor] 40 mg PO DAILY 07/10/15 [History] Ipratropium-Albuterol Nebulize [Duoneb 0.5 mg-3 mg/3 ml Soln] 3 ml INHALATION RT -QID 07/11/15 [History] Fluticasone/Vilanterol [Breo Ellipta 200-25 Mcg INH] 1 puff INHALATION RT-DAILY 10/05/16 [History] predniSONE 5 mg PO DAILY 10/05/16 [History] Tamsulosin HCl [Flomax] 0.4 mg PO BID 06/06/17 [History] Furosemide [Lasix] 20 mg PO DAILY 08/16/17 [History] Lisinopril-Hctz 20-12.5 mg [Zestoretic 20-12.5] 1 tab PO DAILY 08/16/17 [History ] Potassium Chloride ER [K-Dur 20] 20 meq PO DAILY 08/16/17 [History] Umeclidinium [place] [Incruse Ellipta] 1 puff INHALATION RT-DAILY 08/16/17 [ History] Follow up Appointment(s)/Referral(s): Lobo Elizabeth MD [Primary Care Provider] - 07/30/17 11:20 am (You have an appointment tomorrow, Sunday July 30, 2017, at 1120 am) Rey Chavarria DO [Doctor of Osteopathic Medicine] - 08/05/17 1:15 pm (You have an appointment on Saturday, August 05, 2017 at 115 pm) Patient Instructions/Handouts: COPD (Chronic Obstructive Pulmonary Disease) ( GEN), Chronic Bronchitis (DC), How Your Lungs Work (DC), Pulmonary Rehabilitation (DC), Energy Conservation Techniques (DC), Dyspnea Scale and Exercise (DC), Flexible Bronchoscopy (DC) Discharge Disposition: HOME SELF-CARE
== END 2017-07-29 11:04 | disposition home or self-care (01) | DRG 167 ==
LOC: EC 14:11 → 4MS4W 16:12 → 6ICU 07-25 10:57 → 4MS4W 07-25 15:57
PROVIDERS: ADMIT Family Medicine; ATTEND Family Medicine
PROC: 5A09357 Assistance with Respiratory Ventilation, Less than 24 Consecutive Hours, Continuous Positive Airway Pressure (ICD-10-PCS; 2017-07-25)
PROC: 0B9J8ZX Drainage of Left Lower Lung Lobe, Via Natural or Artificial Opening Endoscopic, Diagnostic (ICD-10-PCS; principal; 2017-07-25 10:00)
DX: J44.1 Chronic obstructive pulmonary disease with (acute) exacerbation (principal); J96.11 Chronic respiratory failure with hypoxia; N17.9 Acute kidney failure, unspecified; E87.5 Hyperkalemia; D64.9 Anemia, unspecified; E78.5 Hyperlipidemia, unspecified; F17.201 Nicotine dependence, unspecified, in remission; H91.92 Unspecified hearing loss, left ear; I10 Essential (primary) hypertension; J98.01 Acute bronchospasm; K21.0 Gastro-esophageal reflux disease with esophagitis; T37.0X5A Adverse effect of sulfonamides, initial encounter; T46.4X5A Adverse effect of angiotensin-converting-enzyme inhibitors, initial encounter; Y92.9 Unspecified place or not applicable; M19.90 Unspecified osteoarthritis, unspecified site; Z79.52 Long term (current) use of systemic steroids; Z79.899 Other long term (current) drug therapy; Z85.51 Personal history of malignant neoplasm of bladder; Z86.718 Personal history of other venous thrombosis and embolism; Z87.01 Personal history of pneumonia (recurrent)
CPT/HCPCS: 31624; 36415; 71046; 80048; 80053; 81001; 82550; 82553; 83036; 83735; 84484; 85025; 85027; 85610; 85730; 87040; 87070; 87102; 87116; 87205; 87206; 87252; 87496; 87498; 87502; 87529; 87634; 87798; 88108; 88305; 89050; 93005; 94640; 94644; 94660; 94760; 96372; 96374; 99214; 99291

== ENCOUNTER 2017-08-16 16:39 | Inpatient (IN) | payer MEDICARE ==
[2017-08-16] MEDS ORDERED: ALBUTEROL NEBULIZED 2.5 MG/3 ML INHALATION STA (17:01)
[2017-08-16] MEDS ORDERED: methylPREDNISolone SOD SUCCI 125 MG/2 ML VIAL IV STA (17:01)
[2017-08-16] MEDS ORDERED: SODIUM CHLORIDE 0.9% 1,000 ML IV STA (17:01)
[2017-08-16] MEDS ORDERED: IPRATROPIUM 0.5 MG/2.5 ML NEBU INHALATION STA (17:01)
[2017-08-16] MEDS ORDERED: cefTRIAXone IN SWFI 1,000 MG/10 ML SYRINGE IVP STA (17:09)
--- NOTE | 2017-08-16 17:22 | ED ---
SOB HPI - General Chief Complaint: Shortness of Breath Stated Complaint: Difficulty Breathing/Hypotension Time Seen by Provider: 08/16/17 16:51 Source: patient, family Mode of arrival: wheelchair Limitations: no limitations - History of Present Illness Initial Comments: 82 years old male has a history of severe COPD he been short winded for the last couple days he was recently hospitalized for the COPD exacerbation and his shortness of breath has gotten worse over the last 24 hours he denies any chest pain he denies any chest pain with deep breaths denies any fever has a large purulent sputum has been coughing denies any fever has some chills. His said he had episode of low blood pressure at home his blood pressure was 89 systolic couple of hours prior to coming to the ER though it bounced back on arrival to the review of system is unremarkable otherwise no headaches no neck pain he does have a shortness of breath no chest pain no abdominal pain no frequency urgency dysuria no symptoms of TIA or CVA - Related Data Home Medications Medication Instructions Recorded Confirmed Albuterol Sulfate [Proair Hfa] 2 puff INHALATION RT-Q6H PRN 07/10/15 08/16/17 Simvastatin [Zocor] 40 mg PO DAILY 07/10/15 08/16/17 Ipratropium-Albuterol Nebulize 3 ml INHALATION RT-QID 07/11/15 08/16/17 [Duoneb 0.5 mg-3 mg/3 ml Soln] Fluticasone/Vilanterol [Breo 1 puff INHALATION RT-DAILY 10/05/16 08/16/17 Ellipta 200-25 Mcg INH] predniSONE 5 mg PO DAILY 10/05/16 08/16/17 Tamsulosin HCl [Flomax] 0.4 mg PO BID 06/06/17 08/16/17 Furosemide [Lasix] 20 mg PO DAILY 08/16/17 08/16/17 Lisinopril-Hctz 20-12.5 mg 1 tab PO DAILY 08/16/17 08/16/17 [Zestoretic 20-12.5] Potassium Chloride ER [K-Dur 20] 20 meq PO DAILY 08/16/17 08/16/17 Umeclidinium [place] [Incruse 1 puff INHALATION RT-DAILY 08/16/17 08/16/17 Ellipta] Allergies Allergy/AdvReac Type Severity Reaction Status Date / Time No Known Allergies Allergy Verified 08/16/17 17:42 Review of Systems ROS Statement: Those systems with pertinent positive or pertinent negative responses have been documented in the HPI. ROS Other: All systems not noted in ROS Statement are negative. Past Medical History Past Medical History: Cancer, Chest Pain / Angina, COPD, Deep Vein Thrombosis ( DVT), Hyperlipidemia, Hypertension, Osteoarthritis (OA), Pneumonia Additional Past Medical History / Comment(s): unstable angina pectoris. COPD, purulent tracheobronchitis, chronic bronchitis. hard of hearing in left ear, OA, back pain, pneumonia 2010, home O2 at 2L/NC.prn, bladder cancer History of Any Multi-Drug Resistant Organisms: None Reported Past Surgical History: Bladder Surgery, Tonsillectomy Additional Past Surgical History / Comment(s): vasectomy Past Anesthesia/Blood Transfusion Reactions: No Reported Reaction Past Psychological History: No Psychological Hx Reported Smoking Status: Former smoker Past Alcohol Use History: None Reported Past Drug Use History: None Reported - Past Family History Father Family Medical History: Cancer Additional Family Medical History / Comment(s): cancer. client reported father had scoliosis. Mother Additional Family Medical History / Comment(s): mother . unknown history General Exam - General Exam Comments Initial Comments: General: The patient is awake and alert, in no distress, and does not appear acutely ill. Skin: Skin is warm and dry and no rashes or lesions are noted. Eye: Pupils are equal, round and reactive to light, extra-ocular movements are intact; there is normal conjunctiva bilaterally. Ears, nose, mouth and throat: There are moist mucous membranes and no oral lesions. Neck: The neck is supple, there is no tenderness or JVD. Cardiovascular: There is a regular rate and rhythm. No murmur, rub or gallop is appreciated. Respiratory: To auscultation bilateral, exam is consistent with a severe COPD Gastrointestinal: Soft, non-distended, non-tender abdomen without masses or organomegaly noted. There is no rebound or guarding present. Bowel sounds are unremarkable. Back: There is no tenderness to palpation in the midline. There is no obvious deformity. Musculoskeletal: Normal ROM, no tenderness, There is no pedal edema. There is no calf tenderness or swelling. No cords were appreciated. Neurological: CN II-XII intact, Cranial nerves III through XII are intact. There are no obvious motor or sensory deficits. Coordination appears grossly intact. Speech is normal. Psychiatric: Cooperative, appropriate mood & affect, normal judgment. Limitations: no limitations Course Vital Signs 08/16/17 08/16/17 08/16/17 16:42 17:28 17:29 Temperature 97.9 F Pulse Rate 98 88 83 Respiratory 24 16 Rate Blood Pressure 141/63 115/56 O2 Sat by Pulse 98 99 Oximetry 08/16/17 08/16/17 17:48 18:06 Temperature Pulse Rate 103 H 97 Respiratory 18 Rate Blood Pressure 119/60 O2 Sat by Pulse 98 Oximetry EKG is a sinus rhythm with a premature atrial complexes ventricular rate is 88 UT interval is 152 QRS duration is 94 QT/QTc is 352/425 review of this EKG reveals T-wave inversion in aVL no ST elevation or ST depression noticed that his platelets Patient is reassessed her labs are reviewed at 1815, his CBC is normal potassium is slightly elevated 5.7) is 1.3 chest x-rays unremarkable he did show some other is a question of a nodule on a lateral view only. His vitals are good but he doesn't feel that he has side. His baseline he had taken he is requesting admission. His EKG was unremarkable his troponin is unremarkable seems like it is acute exacerbation of COPD and will go ahead and admit him under Dr. Bertrand Elizabeth's service and he will be seeing Dr. Matta who has been look in after his pulmonary problems Medical Decision Making - Lab Data Result diagrams: 08/16/17 17:23 08/16/17 17:23 Lab Results 08/16/17 08/16/17 08/16/17 Range/Units 17:23 17:23 17:23 WBC 9.0 (3.8-10.6) k/uL RBC 3.86 L (4.30-5.90) m/uL Hgb 10.4 L (13.0-17.5) gm/dL Hct 34.7 L (39.0-53.0) % MCV 90.0 (80.0-100.0) fL MCH 27.0 (25.0-35.0) pg MCHC 30.0 L (31.0-37.0) g/dL RDW 16.0 H (11.5-15.5) % Plt Count 380 (150-450) k/uL Neutrophils % 89 % Lymphocytes % 4 % Monocytes % 6 % Eosinophils % 0 % Basophils % 0 % Neutrophils # 8.0 H (1.3-7.7) k/uL Lymphocytes # 0.4 L (1.0-4.8) k/uL Monocytes # 0.5 (0-1.0) k/uL Eosinophils # 0.0 (0-0.7) k/uL Basophils # 0.0 (0-0.2) k/uL Hypochromasia Slight PT (9.0-12.0) sec INR (<1.2) APTT (22.0-30.0) sec Sodium 142 (137-145) mmol/L Potassium 5.7 H (3.5-5.1) mmol/L Chloride 105 (98-107) mmol/L Carbon Dioxide 30 (22-30) mmol/L Anion Gap 7 mmol/L BUN 50 H (9-20) mg/dL Creatinine 1.29 H (0.66-1.25) mg/dL Est GFR (MDRD) Af Amer >60 (>60 ml/min/1.73 sqM) Est GFR (MDRD) Non-Af 53 (>60 ml/min/1.73 sqM) Glucose 108 H (74-99) mg/dL Calcium 9.3 (8.4-10.2) mg/dL Total Bilirubin 0.3 (0.2-1.3) mg/dL AST 21 (17-59) U/L ALT 33 (21-72) U/L Alkaline Phosphatase 69 (38-126) U/L Total Creatine Kinase 56 (55-170) U/L CK-MB (CK-2) 5.3 H* (0.0-2.4) ng/mL CK-MB (CK-2) Rel Index 9.5 Troponin I 0.013 (0.000-0.034) ng/mL Total Protein 6.5 (6.3-8.2) g/dL Albumin 3.6 (3.5-5.0) g/dL 08/16/17 Range/Units 17:23 WBC (3.8-10.6) k/uL RBC (4.30-5.90) m/uL Hgb (13.0-17.5) gm/dL Hct (39.0-53.0) % MCV (80.0-100.0) fL MCH (25.0-35.0) pg MCHC (31.0-37.0) g/dL RDW (11.5-15.5) % Plt Count (150-450) k/uL Neutrophils % % Lymphocytes % % Monocytes % % Eosinophils % % Basophils % % Neutrophils # (1.3-7.7) k/uL Lymphocytes # (1.0-4.8) k/uL Monocytes # (0-1.0) k/uL Eosinophils # (0-0.7) k/uL Basophils # (0-0.2) k/uL Hypochromasia PT 9.6 (9.0-12.0) sec INR 1.0 (<1.2) APTT 21.1 L (22.0-30.0) sec Sodium (137-145) mmol/L Potassium (3.5-5.1) mmol/L Chloride (98-107) mmol/L Carbon Dioxide (22-30) mmol/L Anion Gap mmol/L BUN (9-20) mg/dL Creatinine (0.66-1.25) mg/dL Est GFR (MDRD) Af Amer (>60 ml/min/1.73 sqM) Est GFR (MDRD) Non-Af (>60 ml/min/1.73 sqM) Glucose (74-99) mg/dL Calcium (8.4-10.2) mg/dL Total Bilirubin (0.2-1.3) mg/dL AST (17-59) U/L ALT (21-72) U/L Alkaline Phosphatase (38-126) U/L Total Creatine Kinase (55-170) U/L CK-MB (CK-2) (0.0-2.4) ng/mL CK-MB (CK-2) Rel Index Troponin I (0.000-0.034) ng/mL Total Protein (6.3-8.2) g/dL Albumin (3.5-5.0) g/dL Critical Care Time Total Critical Care Time: 30 Critical Care Time: Arrival respiratory rate was high was 24 with the neb treatments and IV steroids is no his respiratory rate is down to 18 his O2 sat is good chest x- ray was done to rule out any pneumonia and the troponin EKG was done to rule out any cardiac event or ischemic heart disease although is was reviewed with the patient but clinically he does not feel well that's over the admit him for the more aggressive neb treatments and IV steroids be admitted to joanna Elizabeth M.D. and Dr. Chavarria being the consult Disposition Clinical Impression: Dyspnea Disposition: ADMITTED IP TO THIS HOSP Condition: Good Referrals: Lobo Elizabeth MD [Primary Care Provider] - 1-2 days
[2017-08-16 17:48] LABS: Prothrombin Time 9.6 sec (9.0-12.0)
[2017-08-16 17:50] LABS: ALT 33 U/L (21-72); AST 21 U/L (17-59); Albumin 3.6 g/dL (3.5-5.0); Alkaline Phosphatase 69 U/L (38-126); Anion Gap 7 mmol/L; Blood Urea Nitrogen 50 mg/dL (9-20); Calcium 9.3 mg/dL (8.4-10.2); Carbon Dioxide 30 mmol/L (22-30); Chloride 105 mmol/L (98-107); Glucose 108 mg/dL (74-99); Potassium 5.7 mmol/L (3.5-5.1); Sodium 142 mmol/L (137-145); Total Bilirubin 0.3 mg/dL (0.2-1.3); Total Protein 6.5 g/dL (6.3-8.2)
[2017-08-16 17:52] LABS: Basophils % (A) 0 %; Eosinophils % (A) 0 %; HCT 34.7 % (39.0-53.0); HGB 10.4 gm/dL (13.0-17.5); Hypochromasia Slight; Lymphocytes # (A) 0.4 k/uL (1.0-4.8); Lymphocytes % (A) 4 %; Mean Platelet Volume 6.5; Monocytes # (A) 0.5 k/uL (0-1.0); Monocytes % (A) 6 %; Neutrophils % (A) 89 %; Platelet Count 380 k/uL (150-450); RBC 3.86 m/uL (4.30-5.90)
[2017-08-16 17:59] LABS: Partial Thromboplastin Time 21.1 sec (22.0-30.0)
--- NOTE | 2017-08-16 18:00 | XR ---
EXAMINATION TYPE: XR chest 2V DATE OF EXAM: 08/16/2017 COMPARISON: CT chest 07/18/2015, chest x-ray 06/06/2017, 07/22/2017, 07/26/2017 INDICATION: Difficulty breathing TECHNIQUE: Frontal and lateral views of the chest are obtained. FINDINGS: The heart size is normal. The pulmonary vasculature is normal. The lateral projection there is a small nodular density in the retrosternal space is not clearly iden tified in the frontal projection. Follow-up is recommended. This is not clearly identified on the CT of 07/18/2015. Nipple shadows are present bilaterally. Hyperinflation is present compatible with COPD . There is hyperinflation flattened diaphragms. Increased retrosternal airspace is present. IMPRESSION: 1. COPD. 2. Small nodularity may be in the retrosternal space on the lateral projection. Consider follow-up CT .
[2017-08-16 18:14] LABS: Troponin I 0.013 ng/mL (0.000-0.034)
[2017-08-16 18:17] LABS: Creatine Kinase MB 5.3 ng/mL (0.0-2.4)
[2017-08-16] MEDS ORDERED: SODIUM POLYSTYRENE SULFONATE 15 GM/60 ML BOTTLE PO STA (18:17)
[2017-08-16] MEDS ORDERED: IPRATROPIUM-ALBUTEROL 3 ML NEB INHALATION PRN (18:51)
[2017-08-16] MEDS ORDERED: ALBUTEROL NEBULIZED 2.5 MG/3 ML INHALATION PRN (18:57)
[2017-08-16] MEDS ORDERED: SYMBICORT 80-4.5 MCG INHALER INHALATION SCH (20:00)
[2017-08-16] MEDS ORDERED: BUDESONIDE 0.5 MG/2 ML NEBU INHALATION SCH (20:00)
[2017-08-16 20:45] VITALS: BMI 18.7
[2017-08-16] MEDS: TAMSULOSIN 0.4 MG CAP.ER.24H PO SCH (21:18)
[2017-08-16] MEDS: methylPREDNISolone SOD SUCCI 125 MG/2 ML VIAL IV SCH (23:14)
[2017-08-17] MEDS: methylPREDNISolone SOD SUCCI 125 MG/2 ML VIAL IV SCH ×3 (06:17→18:16)
[2017-08-17] MEDS: FUROSEMIDE 20 MG TAB PO SCH (07:51)
[2017-08-17] MEDS: TAMSULOSIN 0.4 MG CAP.ER.24H PO SCH ×2 (07:51→22:23)
[2017-08-17] MEDS: LISINOPRIL-HCTZ 20-12.5 MG 1 EACH TAB PO SCH (07:51)
[2017-08-17] MEDS: ATORVASTATIN 20 MG TAB PO SCH (07:51)
[2017-08-17] MEDS: LEVOFLOXACIN 500 MG TAB PO SCH (07:51)
[2017-08-17] MEDS ORDERED: SYMBICORT 160-4.5 MCG INHALER INHALATION SCH (08:00)
[2017-08-17] MEDS: IPRATROPIUM-ALBUTEROL 3 ML NEB INHALATION SCH ×4 (08:35→19:55)
[2017-08-17 11:46] LABS: Anion Gap 8 mmol/L; Anisocytosis Slight; Basophils % (A) 0 %; Blood Urea Nitrogen 43 mg/dL (9-20); Calcium 8.9 mg/dL (8.4-10.2); Carbon Dioxide 31 mmol/L (22-30); Chloride 105 mmol/L (98-107); Eosinophils % (A) 0 %; Glucose 120 mg/dL (74-99); HCT 32.6 % (39.0-53.0); HGB 9.9 gm/dL (13.0-17.5); Hypochromasia Moderate; Lymphocytes # (A) 0.2 k/uL (1.0-4.8); Lymphocytes % (A) 2 %; MCH 28.1 pg (25.0-35.0); MCHC 30.4 g/dL (31.0-37.0); MCV 92.4 fL (80.0-100.0); Mean Platelet Volume 6.9; Monocytes # (A) 0.3 k/uL (0-1.0); Monocytes % (A) 4 %; Neutrophils # (A) 7.3 k/uL (1.3-7.7); Neutrophils % (A) 94 %; Platelet Count 365 k/uL (150-450); Potassium 5.5 mmol/L (3.5-5.1); RBC 3.53 m/uL (4.30-5.90); Sodium 144 mmol/L (137-145); WBC 7.8 k/uL (3.8-10.6)
[2017-08-17 11:51] LABS: Glucose,Whole Blood 129 mg/dL (75-99)
[2017-08-17] MEDS: INSULIN ASPART 100 UNIT/ML 1 ML 10 ML VIAL SQ SCH ×3 (13:58→22:23)
--- NOTE | 2017-08-17 14:29 | P.CNPUL ---
History of Present Illness Consult date: 08/17/17 Reason for consult: dyspnea, cough, COPD, hypoxemia Chief complaint: Shortness of breath History of present illness: Consult dated 08/17/2017 This is an 82-year-old male with a history of very severe end-stage COPD. The patient came to the emergency room with complaints of a couple days with increasing shortness of breath chest congestion coughing wheezing and phlegm production. The patient was recently in hot in the hospital for similar episode maybe 2-1/2 weeks ago. I've been seeing him in the office for a number of years. His and daughter and granddaughter in the room with him. The patient is on oxygen therapy. I saw him in the office between this admission and last. The patient's overall situation has declined any getting worse and worse with each week that passes. I did have a long talk with the today about CODE STATUS and about not going on life support. She understands. She will discuss that with him. The patient does have a history of angina pectoris deep venous thrombosis hyperlipidemia hypertension osteoarthritis a previous episode of pneumonia and history of bladder cancer. He does use home O2 2 L when necessary but he should be using it more frequently. Heavy smoker in the past. Does not smoke currently. Review of Systems A 12 point review of systems is positive for shortness of breath chest tightness wheezing cough and phlegm production. Past Medical History Past Medical History: Cancer, Chest Pain / Angina, COPD, Deep Vein Thrombosis ( DVT), Hyperlipidemia, Hypertension, Osteoarthritis (OA), Pneumonia Additional Past Medical History / Comment(s): unstable angina pectoris. COPD, purulent tracheobronchitis, chronic bronchitis. hard of hearing in left ear, OA, back pain, pneumonia 2010, home O2 at 2L/NC.prn, bladder cancer History of Any Multi-Drug Resistant Organisms: None Reported Past Surgical History: Bladder Surgery, Tonsillectomy Additional Past Surgical History / Comment(s): vasectomy Past Anesthesia/Blood Transfusion Reactions: No Reported Reaction Past Psychological History: No Psychological Hx Reported Additional Psychological History / Comment(s): Pt resides with his spouse in a single level home that has 4 porchs steps..pt drives. He has a nebulizer, 02 uses prn. no home care services. Smoking Status: Former smoker Past Alcohol Use History: None Reported Additional Past Alcohol Use History / Comment(s): Pt started smoking in 1954 and quit in 1999. He at one time was smoking 2-3 ppd. Past Drug Use History: None Reported - Past Family History Father Family Medical History: Cancer Additional Family Medical History / Comment(s): cancer. client reported father had scoliosis. Mother Additional Family Medical History / Comment(s): mother . unknown history Medications and Allergies Home Medications Medication Instructions Recorded Confirmed Type Albuterol Sulfate [Proair Hfa] 2 puff INHALATION RT-Q6H PRN 07/10/15 08/16/17 History Simvastatin [Zocor] 40 mg PO DAILY 07/10/15 08/16/17 History Ipratropium-Albuterol Nebulize 3 ml INHALATION RT-QID 07/11/15 08/16/17 History [Duoneb 0.5 mg-3 mg/3 ml Soln] Fluticasone/Vilanterol [Breo 1 puff INHALATION RT-DAILY 10/05/16 08/16/17 History Ellipta 200-25 Mcg INH] predniSONE 5 mg PO DAILY 10/05/16 08/16/17 History Tamsulosin HCl [Flomax] 0.4 mg PO BID 06/06/17 08/16/17 History Furosemide [Lasix] 20 mg PO DAILY 08/16/17 08/16/17 History Lisinopril-Hctz 20-12.5 mg 1 tab PO DAILY 08/16/17 08/16/17 History [Zestoretic 20-12.5] Potassium Chloride ER [K-Dur 20] 20 meq PO DAILY 08/16/17 08/16/17 History Umeclidinium [place] [Incruse 1 puff INHALATION RT-DAILY 08/16/17 08/16/17 History Ellipta] Allergies Allergy/AdvReac Type Severity Reaction Status Date / Time No Known Allergies Allergy Verified 08/16/17 17:42 Physical Exam Osteopathic Statement: *. No significant issues noted on an osteopathic structural exam other than those noted in the History and Physical/Consult. Vitals: Vital Signs Temp Pulse Pulse Resp BP BP Pulse Ox 08/17/17 12:32 102 H 08/17/17 12:25 96 08/17/17 08:51 100 08/17/17 08:39 104 H 95 08/17/17 08:00 104 H 18 08/17/17 07:00 97.7 F 104 H 18 165/69 91 L 08/16/17 19:54 95 20 133/58 98 08/16/17 19:30 97.9 F 97 16 121/64 08/16/17 19:04 97.8 F 99 22 114/60 94 L 08/16/17 18:06 97 18 119/60 98 08/16/17 17:48 103 H 08/16/17 17:29 83 16 115/56 99 08/16/17 17:28 88 08/16/17 16:42 97.9 F 98 24 141/63 98 Intake and Output 08/16/17 08/17/17 08/17/17 22:59 06:59 14:59 Intake Total 550 360 Balance 550 360 Intake: Intake, IV Titration 550 Amount Sodium Chloride 0.9% 1, 550 000 ml @ 75 mls/hr IV . [id number] STA Rx#:[id number] Oral 360 Other: # Voids 1 3 Weight 60.9 kg No acute distress, oriented 3. Nasal O2 in place. HEENT examination is grossly unremarkable. Mucous membranes are moist. No oral lesions. Neck supple. Full range of motion. No adenopathy thyromegaly or neck vein distention. Cardiovascular examination reveals regular rhythm rate. S1-S2 normal. No S3 or S4. No discernible murmur noted. Lungs reveal coarse bilateral breath sounds. The patient has expiratory wheezes and rhonchi. No crackles. Breath sounds are diminished. There is prolongation on forced maneuver. The patient's upper airway sound like there is lots of mucus and secretions which seemed to slosh [id number]. Abdomen soft bowel sounds are heard. No masses or tenderness. Extremities are intact. No cyanosis clubbing or edema. Skin is without rash or lesion. Neurologic examination is brief but nonfocal. Results - Laboratory Findings CBC and BMP: 08/17/17 11:20 08/17/17 11:20 PT/INR, D-dimer PT 9.6 sec (9.0-12.0) 08/16/17 17:23 INR 1.0 (<1.2) 08/16/17 17:23 Abnormal lab findings: Abnormal Labs 08/16/17 08/16/17 08/16/17 17:23 17:23 17:23 RBC 3.86 L Hgb 10.4 L Hct 34.7 L MCHC 30.0 L RDW 16.0 H Neutrophils # 8.0 H Lymphocytes # 0.4 L APTT Potassium 5.7 H Carbon Dioxide BUN 50 H Creatinine 1.29 H Glucose 108 H POC Glucose (mg/dL) CK-MB (CK-2) 5.3 H* 08/16/17 08/17/17 08/17/17 17:23 11:20 11:20 RBC 3.53 L Hgb 9.9 L Hct 32.6 L MCHC 30.4 L RDW 16.0 H Neutrophils # Lymphocytes # 0.2 L APTT 21.1 L Potassium 5.5 H Carbon Dioxide 31 H BUN 43 H Creatinine Glucose 120 H POC Glucose (mg/dL) CK-MB (CK-2) 08/17/17 11:50 RBC Hgb Hct MCHC RDW Neutrophils # Lymphocytes # APTT Potassium Carbon Dioxide BUN Creatinine Glucose POC Glucose (mg/dL) 129 H CK-MB (CK-2) - Diagnostic Findings Chest x-ray: image reviewed (X-rays labs and medications are all reviewed.) Assessment and Plan Assessment: COPD exacerbation, complicated by purulent tracheobronchitis History of bladder cancer Chronic hypoxemia Angina pectoris History of deep venous thrombosis History of hyperlipidemia History of hypertension History of DJD Previous episode of pneumonia Chronic hypoxemia particularly at nighttime and with exertion Plan: Plan dated 08/17/2017 The patient was interviewed and examined. I know the patient wants to see him in the office for a long period of time. I believe his family doctor is Dr. Elizabeth. The patient's medications are reviewed. X-rays and labs are reviewed. I did have a talk with the and the granddaughter about his declining situation. The patient should be a no code and should not go on life support should come to that. The will give it some thought. The patient's lung disease is quite severe. His overall situation last 6 months a significantly declined. We'll continue to follow. Prognosis is guarded. Time with Patient: Greater than 30
[2017-08-17 16:58] LABS: Glucose,Whole Blood 117 mg/dL (75-99)
[2017-08-17] MEDS: BUDESONIDE 1 MG/2 ML NEBU INHALATION SCH (19:55)
[2017-08-17] MEDS: FORMOTEROL FUMARATE 20 MCG/2 ML NEBU INHALATION SCH (19:56)
[2017-08-17 21:03] LABS: Glucose,Whole Blood 179 mg/dL (75-99)
[2017-08-17 21:28] LABS: Hemoglobin A1C 6.2 % (4.0-6.0)
--- NOTE | 2017-08-17 21:44 | HP ---
HISTORY AND PHYSICAL I am covering for Dr. Elizabeth. CHIEF COMPLAINT: Shortness of breath. HISTORY OF PRESENT ILLNESS: This 82-year-old gentleman with a past medical history of multiple medical problems, including history of COPD, history of DVT, hypertension, hyperlipidemia, history of DJD, history of pneumonia, in the outpatient setting was followed by Dr. Elizabeth. The patient complained of shortness of breath as well hypertension. The patient had a cough and sputum for the last couple of days. The patient was recently hospitalized for COPD acute exacerbation and shortness of breath had gotten worse for the last 24 hours prior to admission. The patient admitted for evaluation and treatment. A chest x-ray done in the ER showed a small nodularity in space as well as COPD. There is no history of any fever, rigors. No headache, loss of consciousness, seizures. PAST MEDICAL HISTORY: History of COPD, history of chest pain, history of DVT, hypertension, hyperlipidemia, DJD, history of pneumonia, unstable angina. MEDICATIONS PRIOR TO ADMISSION: Include. 1. Ellipta 1 puff daily. 2. ProAir HFA 2 puffs every 6 hours p.r.n. 3. Flomax 0.5 b.i.d. 4. Zocor 40 mg daily. 5. K-Dur 20 mg p.o. daily. 7. DuoNeb q.i.d. 8. Lasix 20 mg p.o. daily. 9. Breo Ellipta 1 puff daily. 10.Prednisone 5 mg p.o. daily. ALLERGIES: None. FAMILY HISTORY: History of cancer in the family. Father had scoliosis. SOCIAL HISTORY: Previous history of smoking. No history of current smoking or alcohol intake. REVIEW OF SYSTEMS: ENT: Diminished hearing, diminished vision. CARDIOVASCULAR: As mentioned earlier. RESPIRATORY: As mentioned earlier. GI: No nausea or vomiting. : No dysuria. NERVOUS: No numbness or weakness. ALLERGY/IMMUNOLOGY: No asthma or hay fever. MUSCULOSKELETAL: As mentioned earlier. HEMATOLOGY/ONCOLOGY: No history of anemia. ENDOCRINE: No history of diabetes, hypothyroidism. CONSTITUTIONAL: As mentioned earlier. DERMATOLOGY: Negative. RHEUMATOLOGY: Negative. PSYCHIATRY: As mentioned earlier. PHYSICAL EXAMINATION: Alert and oriented x3. Pulse 89, blood pressure 130/61, respirations 18, temperature 97.4, pulse ox 100% on 2L. HEENT: Conjunctivae normal. Oral mucosa moist. NECK: No jugular venous distention. No carotid bruits. No lymph node enlargement. CARDIOVASCULAR: S1, S2 muffled. RESPIRATORY: Breath sounds diminished in the bases. A few scattered rhonchi and crackles. ABDOMEN: Soft, nontender. No mass palpable. LEGS: No edema. No swelling. NERVOUS SYSTEM: Higher functions as mentioned earlier. Moves all 4 limbs. No focal motor or sensory deficits. LYMPHATIC: No lymphadenopathy in neck or axillae. SKIN: No ulcer, rash or bleeding. LABS: WBC 7.8, hemoglobin 9.9. Sodium 142, potassium 5.5, glucose 120. ASSESSMENT: 1. Chronic obstructive pulmonary disease acute exacerbation with acute purulent tracheobronchitis. small nodularity in retro sternal space in the cxr 2. History of deep venous thrombosis. 3. Hypertension. 4. History of bladder cancer. 5. Hyperlipidemia. 6. History of degenerative joint disease. 7. Chronic hypoxic respiratory failure on oxygen 2L nasal cannula. 8. History of bladder surgery. RECOMMENDATIONS AND DISCUSSION: I recommend to continue current medical management and symptomatic treatment. Otherwise, I would recommend IV steroids, intensive bronchodilators and empiric antibiotics. Consult Dr. Chavarria. Otherwise, we will continue to monitor. See orders for further details. DVT prophylaxis, incentive spirometry. Prognosis guarded because of multiple complex medical issues. Further recommendations to follow. Discussed with the patient, who understands. MMODL / IJN: [id number] / THEO
[2017-08-17] MEDS: HEPARIN SODIUM,PORCINE 5,000 UNIT/ML 1 ML VIAL SQ SCH (22:23)
[2017-08-18] MEDS: methylPREDNISolone SOD SUCCI 125 MG/2 ML VIAL IV SCH ×5 (00:17→23:50)
[2017-08-18 07:04] LABS: Glucose,Whole Blood 104 mg/dL (75-99)
[2017-08-18 07:14] LABS: Basophils % (A) 0 %; Eosinophils % (A) 0 %; HCT 32.4 % (39.0-53.0); HGB 9.8 gm/dL (13.0-17.5); Hypochromasia Slight; Lymphocytes # (A) 0.5 k/uL (1.0-4.8); Lymphocytes % (A) 5 %; MCH 27.6 pg (25.0-35.0); MCHC 30.4 g/dL (31.0-37.0); MCV 90.8 fL (80.0-100.0); Mean Platelet Volume 6.5; Monocytes # (A) 0.5 k/uL (0-1.0); Monocytes % (A) 6 %; Neutrophils # (A) 8.4 k/uL (1.3-7.7); Neutrophils % (A) 89 %; Platelet Count 384 k/uL (150-450); RBC 3.56 m/uL (4.30-5.90); RDW 15.9 % (11.5-15.5); WBC 9.4 k/uL (3.8-10.6)
[2017-08-18 07:27] LABS: Anion Gap 8 mmol/L; Blood Urea Nitrogen 41 mg/dL (9-20); Carbon Dioxide 30 mmol/L (22-30); Chloride 103 mmol/L (98-107); Glucose 106 mg/dL (74-99); Potassium 4.9 mmol/L (3.5-5.1); Sodium 141 mmol/L (137-145)
[2017-08-18] MEDS: TAMSULOSIN 0.4 MG CAP.ER.24H PO SCH ×2 (07:29→22:10)
[2017-08-18] MEDS: LISINOPRIL-HCTZ 20-12.5 MG 1 EACH TAB PO SCH (07:29)
[2017-08-18] MEDS: FUROSEMIDE 20 MG TAB PO SCH (07:29)
[2017-08-18] MEDS: LEVOFLOXACIN 500 MG TAB PO SCH (07:29)
[2017-08-18] MEDS: ATORVASTATIN 20 MG TAB PO SCH (07:29)
[2017-08-18] MEDS: HEPARIN SODIUM,PORCINE 5,000 UNIT/ML 1 ML VIAL SQ SCH ×2 (07:30→22:10)
[2017-08-18] MEDS: INSULIN ASPART 100 UNIT/ML 1 ML 10 ML VIAL SQ SCH ×4 (07:30→22:10)
[2017-08-18] MEDS: IPRATROPIUM-ALBUTEROL 3 ML NEB INHALATION SCH ×4 (07:41→21:13)
[2017-08-18] MEDS: FORMOTEROL FUMARATE 20 MCG/2 ML NEBU INHALATION SCH ×2 (07:41→21:13)
[2017-08-18] MEDS: BUDESONIDE 1 MG/2 ML NEBU INHALATION SCH ×2 (07:41→21:13)
--- NOTE | 2017-08-18 11:02 | P.PN ---
Subjective Progress Note Date: 08/18/17 Principal diagnosis: COPD exacerbation Progress note dated 08/18/2017 This is an 82-year-old male well-known to me. He has a history of severe end- stage oxygen-dependent COPD. He came to the emergency room complaining of increasing shortness of breath for a couple days prior to admission. In addition, he was coughing and wheezing producing some phlegm. No fever or chills. The patient was recently in the hospital with similar episode of COPD exacerbation. Yesterday, after evaluating him, he had a long talk with his . We did talk about CODE STATUS. I don't think Mr. Rodríguez will be a good candidate for intubation mechanical ventilation given the severity of his chronic lung disease. He is express to me in the past that he did not want to be on life support. I did talk to his and granddaughter they're giving some consideration. No decision has been made as yet. The patient does have history of chest pain deep venous thrombosis hyperlipidemia hypertension DJD and a previous episode of pneumonia as well as bladder cancer. Objective - Vital Signs Vital signs: Vital Signs Temp 97.1 F L 08/18/17 07:00 Pulse 82 08/18/17 08:06 Resp 18 08/18/17 08:00 BP 125/67 08/18/17 07:00 Pulse Ox 99 08/18/17 07:41 Intake & Output 08/17/17 08/18/17 08/18/17 18:59 06:59 18:59 Intake Total 360 1180 Balance 360 1180 Weight 60.9 kg Intake: Oral 360 1180 Other: # Voids 3 2 - Exam No acute distress, oriented 3. Currently on nasal oxygen. HEENT examination is grossly unremarkable. Mucous membranes are moist. No oral lesions. Neck supple. Full range of motion. No adenopathy thyromegaly or neck vein distention. Cardiovascular examination reveals regular rhythm rate. S1-S2 normal. No S3 or S4. No discernible murmur noted. Heart sounds are distant. Lungs reveal bilateral coarse expiratory rhonchi. No distinct wheezes are noted. Breath sounds are diminished. Adventitious lung sounds are more prominent on forced maneuver. There is prolongation on forced maneuver.. Abdomen soft bowel sounds are heard. No masses or tenderness. Extremities are intact. No cyanosis clubbing or edema. Skin is without rash or lesion. Neurologic examination is brief but nonfocal. - Labs CBC & Chem 7: 08/18/17 06:40 08/18/17 06:40 Labs: Abnormal Lab Results - Last 24 Hours (Table) 08/17/17 08/17/17 08/17/17 Range/Units 11:20 11:20 11:50 RBC 3.53 L (4.30-5.90) m/uL Hgb 9.9 L (13.0-17.5) gm/dL Hct 32.6 L (39.0-53.0) % MCHC 30.4 L (31.0-37.0) g/dL RDW 16.0 H (11.5-15.5) % Neutrophils # (1.3-7.7) k/uL Lymphocytes # 0.2 L (1.0-4.8) k/uL Potassium 5.5 H (3.5-5.1) mmol/L Carbon Dioxide 31 H (22-30) mmol/L BUN 43 H (9-20) mg/dL Glucose 120 H (74-99) mg/dL POC Glucose (mg/dL) 129 H (75-99) mg/dL 08/17/17 08/17/17 08/18/17 Range/Units 16:55 21:02 06:40 RBC 3.56 L (4.30-5.90) m/uL Hgb 9.8 L (13.0-17.5) gm/dL Hct 32.4 L (39.0-53.0) % MCHC 30.4 L (31.0-37.0) g/dL RDW 15.9 H (11.5-15.5) % Neutrophils # 8.4 H (1.3-7.7) k/uL Lymphocytes # 0.5 L (1.0-4.8) k/uL Potassium (3.5-5.1) mmol/L Carbon Dioxide (22-30) mmol/L BUN (9-20) mg/dL Glucose (74-99) mg/dL POC Glucose (mg/dL) 117 H 179 H (75-99) mg/dL 08/18/17 08/18/17 Range/Units 06:40 07:02 RBC (4.30-5.90) m/uL Hgb (13.0-17.5) gm/dL Hct (39.0-53.0) % MCHC (31.0-37.0) g/dL RDW (11.5-15.5) % Neutrophils # (1.3-7.7) k/uL Lymphocytes # (1.0-4.8) k/uL Potassium (3.5-5.1) mmol/L Carbon Dioxide (22-30) mmol/L BUN 41 H (9-20) mg/dL Glucose 106 H (74-99) mg/dL POC Glucose (mg/dL) 104 H (75-99) mg/dL Microbiology - Last 24 Hours (Table) 08/17/17 14:00 Gram Stain - Preliminary Sputum Assessment and Plan Assessment: COPD exacerbation, complicated by purulent tracheobronchitis Severe end-stage oxygen and steroid dependent COPD History of bladder cancer Chronic hypoxemia Angina pectoris History of deep venous thrombosis History of hyperlipidemia History of hypertension History of DJD Previous episode of pneumonia Chronic hypoxemia particularly at nighttime and with exertion, patient noncompliant with oxygen therapy. Plan: Plan dated 08/17/2017 The patient was interviewed and examined. I know the patient wants to see him in the office for a long period of time. I believe his family doctor is Dr. Elizabeth. The patient's medications are reviewed. X-rays and labs are reviewed. I did have a talk with the and the granddaughter about his declining situation. The patient should be a no code and should not go on life support should come to that. The will give it some thought. The patient's lung disease is quite severe. His overall situation last 6 months a significantly declined. We'll continue to follow. Prognosis is guarded. Plan dated 08/18/2017. The patient is situation is a bit better today. A bit less short of breath. Still very congested and wet sounding. I did have a conversation with the and granddaughter yesterday about CODE STATUS. They're giving some consideration. I don't believe Mr. Rodríguez will be a good candidate to go on life support. Labs x-rays a medications are all reviewed. Medications were adjusted yesterday. He is on the usual COPD cocktail. She'll recommendations and suggestions are forthcoming. Time with Patient: Less than 30
[2017-08-18 11:16] LABS: Glucose,Whole Blood 114 mg/dL (75-99)
[2017-08-18 17:06] LABS: Glucose,Whole Blood 151 mg/dL (75-99)
--- NOTE | 2017-08-18 18:48 | PN ---
PROGRESS NOTE DATE OF SERVICE: 08/18/2017 I am covering for Dr. Elizabeth. This 82-year-old gentleman who was admitted with COPD acute exacerbation, also had acute purulent tracheobronchitis. No chest pain. No palpitations. No fever. EXAM: Alert and oriented. Pulse 93, blood pressure 129/64, respiration 18, temperature 97.8, pulse ox 98% 2 L. HEENT: Conjunctivae normal. NECK: No jugular venous distention. CARDIOVASCULAR: S1, S2 muffled. RESPIRATORY: Breath sounds diminished at the bases. A few scattered rhonchi and crackles. Expiratory wheezing. ABDOMEN: Soft, nontender. LEGS: No edema. NERVOUS SYSTEM: No focal deficits. LABS: WBC 9.2, hemoglobin 9.8, other labs are noted. ASSESSMENT: 1. Chronic obstructive pulmonary disease exacerbation with acute purulent tracheobronchitis. 2. Small nodule in the right in the chest x-ray. 3. History of deep vein thrombosis. 4. Hypertension. 5. History of bladder cancer. 6. Hyperlipidemia. 7. History of degenerative joint disease. 8. History of chronic hypoxic respiratory failure on home O2 nasal cannula. 9. History of bladder surgery. RECOMMENDATIONS AND DISCUSSION: I recommend to continue current management and symptomatic treatment. Pulmonary is following the patient closely. Continue the bronchodilators. Continue the antibiotics. The patient is on p.o. Levaquin. The patient is on IV steroids also. Monitor blood sugars closely. Guarded prognosis because of multiple complex medical issues. Further recommendations to follow. MMRAFL / EWAN: [id number] / MTDD
[2017-08-18 20:35] LABS: Glucose,Whole Blood 198 mg/dL (75-99)
[2017-08-19] MEDS: methylPREDNISolone SOD SUCCI 125 MG/2 ML VIAL IV SCH ×3 (06:20→17:46)
[2017-08-19 07:30] LABS: Glucose,Whole Blood 125 mg/dL (75-99)
[2017-08-19 07:34] LABS: Anisocytosis Slight; Basophils % (A) 0 %; Eosinophils % (A) 0 %; HCT 34.4 % (39.0-53.0); Hypochromasia Marked; Lymphocytes # (A) 0.2 k/uL (1.0-4.8); Lymphocytes % (A) 2 %; MCH 26.9 pg (25.0-35.0); Mean Platelet Volume 6.6; Monocytes # (A) 0.2 k/uL (0-1.0); Monocytes % (A) 2 %; Neutrophils # (A) 7.5 k/uL (1.3-7.7); Neutrophils % (A) 95 %; Platelet Count 367 k/uL (150-450); RBC 3.69 m/uL (4.30-5.90); RDW 16.3 % (11.5-15.5); WBC 7.9 k/uL (3.8-10.6)
[2017-08-19 07:50] LABS: Anion Gap 9 mmol/L; Blood Urea Nitrogen 56 mg/dL (9-20); Calcium 9.1 mg/dL (8.4-10.2); Carbon Dioxide 32 mmol/L (22-30); Chloride 100 mmol/L (98-107); Glucose 125 mg/dL (74-99); Sodium 141 mmol/L (137-145)
--- NOTE | 2017-08-19 08:17 | P.PN ---
Subjective Principal diagnosis: Exacerbation of COPD. This is a continue pressure 82-year-old male essentially readmitted for exacerbation of COPD. He states significant dyspnea on exertion and is anticipating moving more oxygen dependency. No significant nausea, vomiting or diarrhea is noted. The patient saw me in the office and I did add Incruse to see if this would help him. Objective - Vital Signs Vital signs: Vital Signs Temp 97.7 F 08/19/17 07:00 Pulse 95 08/19/17 07:00 Resp 18 08/19/17 07:00 BP 168/70 08/19/17 07:00 Pulse Ox 98 08/19/17 07:00 Intake & Output 08/18/17 08/19/17 08/19/17 18:59 06:59 18:59 Intake Total 200 590 Balance 200 590 Intake: Oral 200 590 Other: Voiding Method Toilet # Voids 3 1 - Constitutional General appearance: Present: average body habitus - EENT Eyes: Absent: abnormal pupil - Respiratory Respiratory: bilateral: CTA - Cardiovascular Rhythm: regular Heart sounds: normal: S1, S2 - Gastrointestinal General gastrointestinal: Present: soft. Absent: tenderness - Psychiatric Psychiatric: Present: A&O x's 3 - Labs CBC & Chem 7: 08/19/17 07:02 08/19/17 07:02 Labs: Abnormal Lab Results - Last 24 Hours (Table) 08/17/17 08/18/17 08/18/17 Range/Units 11:20 11:11 17:04 RBC (4.30-5.90) m/uL Hgb (13.0-17.5) gm/dL Hct (39.0-53.0) % MCHC (31.0-37.0) g/dL RDW (11.5-15.5) % Lymphocytes # (1.0-4.8) k/uL Carbon Dioxide (22-30) mmol/L BUN (9-20) mg/dL Glucose (74-99) mg/dL POC Glucose (mg/dL) 114 H 151 H (75-99) mg/dL Hemoglobin A1c 6.2 H (4.0-6.0) % 08/18/17 08/19/17 08/19/17 Range/Units 20:31 07:02 07:02 RBC 3.69 L (4.30-5.90) m/uL Hgb 10.0 L (13.0-17.5) gm/dL Hct 34.4 L (39.0-53.0) % MCHC 29.0 L (31.0-37.0) g/dL RDW 16.3 H (11.5-15.5) % Lymphocytes # 0.2 L (1.0-4.8) k/uL Carbon Dioxide 32 H (22-30) mmol/L BUN 56 H (9-20) mg/dL Glucose 125 H (74-99) mg/dL POC Glucose (mg/dL) 198 H (75-99) mg/dL Hemoglobin A1c (4.0-6.0) % 08/19/17 Range/Units 07:09 RBC (4.30-5.90) m/uL Hgb (13.0-17.5) gm/dL Hct (39.0-53.0) % MCHC (31.0-37.0) g/dL RDW (11.5-15.5) % Lymphocytes # (1.0-4.8) k/uL Carbon Dioxide (22-30) mmol/L BUN (9-20) mg/dL Glucose (74-99) mg/dL POC Glucose (mg/dL) 125 H (75-99) mg/dL Hemoglobin A1c (4.0-6.0) % Microbiology - Last 24 Hours (Table) 08/17/17 14:00 Gram Stain - Preliminary Sputum Assessment and Plan (1) Dyspnea Current Visit: Yes Status: Acute Code(s): R06.00 - DYSPNEA, UNSPECIFIED SNOMED Code(s): 563482769 (2) Acute exacerbation of chronic obstructive airways disease Current Visit: No Status: Acute Code(s): J44.1 - CHRONIC OBSTRUCTIVE PULMONARY DISEASE W (ACUTE) EXACERBATION SNOMED Code(s): 631937731 (3) Hyperlipidemia Current Visit: No Status: Acute Code(s): E78.5 - HYPERLIPIDEMIA, UNSPECIFIED SNOMED Code(s): 79361831 (4) Hypertension Current Visit: No Status: Acute Code(s): I10 - ESSENTIAL (PRIMARY) HYPERTENSION SNOMED Code(s): 95778377 (5) Hypoxia Current Visit: No Status: Acute Code(s): R09.02 - HYPOXEMIA SNOMED Code(s) : 533953034 Plan: Continue current regimen. Check CBC and CMP in a.m. Prognosis is guarded secondary to his multiple comorbidities. Discharge planning for possible home O2 if not done already. See orders otherwise. Time with Patient: Less than 30
[2017-08-19] MEDS: BUDESONIDE 1 MG/2 ML NEBU INHALATION SCH ×2 (08:28→20:00)
[2017-08-19] MEDS: IPRATROPIUM-ALBUTEROL 3 ML NEB INHALATION SCH ×4 (08:29→20:01)
[2017-08-19] MEDS: FORMOTEROL FUMARATE 20 MCG/2 ML NEBU INHALATION SCH ×2 (08:29→20:00)
[2017-08-19] MEDS: INSULIN ASPART 100 UNIT/ML 1 ML 10 ML VIAL SQ SCH ×4 (08:37→21:37)
[2017-08-19] MEDS: HEPARIN SODIUM,PORCINE 5,000 UNIT/ML 1 ML VIAL SQ SCH ×2 (08:39→21:37)
[2017-08-19] MEDS: LISINOPRIL-HCTZ 20-12.5 MG 1 EACH TAB PO SCH (08:39)
[2017-08-19] MEDS: LEVOFLOXACIN 500 MG TAB PO SCH (08:39)
[2017-08-19] MEDS: ATORVASTATIN 20 MG TAB PO SCH (08:39)
[2017-08-19] MEDS: TAMSULOSIN 0.4 MG CAP.ER.24H PO SCH ×2 (08:39→21:37)
[2017-08-19] MEDS: FUROSEMIDE 20 MG TAB PO SCH (08:39)
[2017-08-19 12:02] LABS: Glucose,Whole Blood 119 mg/dL (75-99)
--- NOTE | 2017-08-19 14:05 | P.PN ---
Subjective Progress Note Date: 08/19/17 Principal diagnosis: COPD exacerbation Progress note dated 08/18/2017 This is an 82-year-old male well-known to me. He has a history of severe end- stage oxygen-dependent COPD. He came to the emergency room complaining of increasing shortness of breath for a couple days prior to admission. In addition, he was coughing and wheezing producing some phlegm. No fever or chills. The patient was recently in the hospital with similar episode of COPD exacerbation. Yesterday, after evaluating him, he had a long talk with his . We did talk about CODE STATUS. I don't think Mr. Rodríguez will be a good candidate for intubation mechanical ventilation given the severity of his chronic lung disease. He is express to me in the past that he did not want to be on life support. I did talk to his and granddaughter they're giving some consideration. No decision has been made as yet. The patient does have history of chest pain deep venous thrombosis hyperlipidemia hypertension DJD and a previous episode of pneumonia as well as bladder cancer. Progress note dated 08/19/2017 This is an 82-year-old male well-known to me. He is a history of severe end- stage oxygen and steroid dependent COPD. He was recently in the hospital for a COPD exacerbation discharged home. He was home for a couple weeks and came back into the similar episode. I did have a long talk with his and granddaughter yesterday. They understand that the patient is quite ill. The patient's complaints include chest tightness wheezing cough chest congestion a very wet congested cough and phlegm production. No fever or chills. No chest pain or chest discomfort. He is getting maximal medical therapy. In addition to severe COPD, he has a history of chest pain, deep venous thrombosis, hyperlipidemia, hypertension, DJD, and previous episodes of pneumonia, as well as bladder cancer history. Objective - Vital Signs Vital signs: Vital Signs Temp 97.7 F 08/19/17 07:00 Pulse 92 08/19/17 11:55 Resp 18 08/19/17 07:00 BP 168/70 08/19/17 07:00 Pulse Ox 98 08/19/17 08:31 Intake & Output 08/18/17 08/19/17 08/19/17 18:59 06:59 18:59 Intake Total 200 590 Balance 200 590 Intake: Oral 200 590 Other: Voiding Method Toilet # Voids 3 1 - Exam No acute distress, oriented 3. Currently on nasal oxygen. HEENT examination is grossly unremarkable. Mucous membranes are moist. No oral lesions. Neck supple. Full range of motion. No adenopathy thyromegaly or neck vein distention. Cardiovascular examination reveals regular rhythm rate. S1-S2 normal. No S3 or S4. No discernible murmur noted. Heart sounds are distant. Lungs reveal bilateral coarse expiratory rhonchi. No distinct wheezes are noted. Breath sounds are diminished. Adventitious lung sounds are more prominent on forced maneuver. There is prolongation on forced maneuver.. Abdomen soft bowel sounds are heard. No masses or tenderness. Extremities are intact. No cyanosis clubbing or edema. Skin is without rash or lesion. Neurologic examination is brief but nonfocal. - Labs CBC & Chem 7: 08/19/17 07:02 08/19/17 07:02 Labs: Abnormal Lab Results - Last 24 Hours (Table) 08/17/17 08/18/17 08/18/17 Range/Units 11:20 17:04 20:31 RBC (4.30-5.90) m/uL Hgb (13.0-17.5) gm/dL Hct (39.0-53.0) % MCHC (31.0-37.0) g/dL RDW (11.5-15.5) % Lymphocytes # (1.0-4.8) k/uL Carbon Dioxide (22-30) mmol/L BUN (9-20) mg/dL Glucose (74-99) mg/dL POC Glucose (mg/dL) 151 H 198 H (75-99) mg/dL Hemoglobin A1c 6.2 H (4.0-6.0) % 08/19/17 08/19/17 08/19/17 Range/Units 07:02 07:02 07:09 RBC 3.69 L (4.30-5.90) m/uL Hgb 10.0 L (13.0-17.5) gm/dL Hct 34.4 L (39.0-53.0) % MCHC 29.0 L (31.0-37.0) g/dL RDW 16.3 H (11.5-15.5) % Lymphocytes # 0.2 L (1.0-4.8) k/uL Carbon Dioxide 32 H (22-30) mmol/L BUN 56 H (9-20) mg/dL Glucose 125 H (74-99) mg/dL POC Glucose (mg/dL) 125 H (75-99) mg/dL Hemoglobin A1c (4.0-6.0) % 08/19/17 Range/Units 12:01 RBC (4.30-5.90) m/uL Hgb (13.0-17.5) gm/dL Hct (39.0-53.0) % MCHC (31.0-37.0) g/dL RDW (11.5-15.5) % Lymphocytes # (1.0-4.8) k/uL Carbon Dioxide (22-30) mmol/L BUN (9-20) mg/dL Glucose (74-99) mg/dL POC Glucose (mg/dL) 119 H (75-99) mg/dL Hemoglobin A1c (4.0-6.0) % Microbiology - Last 24 Hours (Table) 08/17/17 14:00 Gram Stain - Preliminary Sputum Sputum Culture - Preliminary Gram Neg Bacilli Marcia albicans Assessment and Plan Assessment: COPD exacerbation, complicated by purulent tracheobronchitis Severe end-stage oxygen and steroid dependent COPD History of bladder cancer Chronic hypoxemia Angina pectoris History of deep venous thrombosis History of hyperlipidemia History of hypertension History of DJD Previous episode of pneumonia Chronic hypoxemia particularly at nighttime and with exertion, patient noncompliant with oxygen therapy. Plan: Plan dated 08/17/2017 The patient was interviewed and examined. I know the patient wants to see him in the office for a long period of time. I believe his family doctor is Dr. Elizabeth. The patient's medications are reviewed. X-rays and labs are reviewed. I did have a talk with the and the granddaughter about his declining situation. The patient should be a no code and should not go on life support should come to that. The will give it some thought. The patient's lung disease is quite severe. His overall situation last 6 months a significantly declined. We'll continue to follow. Prognosis is guarded. Plan dated 08/18/2017. The patient is situation is a bit better today. A bit less short of breath. Still very congested and wet sounding. I did have a conversation with the and granddaughter yesterday about CODE STATUS. They're giving some consideration. I don't believe Mr. Rodríguez will be a good candidate to go on life support. Labs x-rays a medications are all reviewed. Medications were adjusted yesterday. He is on the usual COPD cocktail. She'll recommendations and suggestions are forthcoming. Plan dated 08/19/2017 The patient seemed be doing a bit better. Not a lot better. Still very congested wet congested cough. Still very short of breath particularly with any exertion. Lots of wheezing and tightness in the chest. No fever or chills. No palpitations. No coughing up of blood. Is coughing up yellow phlegm. No nausea vomiting or diarrhea. We'll continue to follow. Prognosis is guarded. No additional recommendations are made at this time. Time with Patient: Less than 30
[2017-08-19 17:15] LABS: Glucose,Whole Blood 154 mg/dL (75-99)
[2017-08-19 21:23] LABS: Glucose,Whole Blood 177 mg/dL (75-99)
[2017-08-20] MEDS: methylPREDNISolone SOD SUCCI 125 MG/2 ML VIAL IV SCH ×5 (00:05→23:48)
--- NOTE | 2017-08-20 08:05 | P.PN ---
Subjective Principal diagnosis: Exacerbation of COPD. This is a continue Avastin on 8-year-old white male [facility] admitted for exacerbation of COPD. He has almost end-stage element. States he is clinically improved but still has the difficulty with dyspnea on exertion. No significant nausea, vomiting or diarrhea. Objective - Vital Signs Vital signs: Vital Signs Temp 97 F L 08/19/17 23:00 Pulse 101 H 08/19/17 23:00 Resp 16 08/20/17 00:00 BP 116/63 08/19/17 23:00 Pulse Ox 100 08/19/17 23:00 Intake & Output 08/19/17 08/20/17 08/20/17 18:59 06:59 18:59 Intake Total 235 120 Balance 235 120 Weight 60.9 kg Intake: Oral 235 120 Other: Voiding Method Toilet # Voids 1 - Constitutional General appearance: Present: average body habitus - EENT Eyes: Absent: abnormal pupil - Respiratory Respiratory: bilateral: diminished - Cardiovascular Rhythm: regular Heart sounds: normal: S1, S2 - Gastrointestinal General gastrointestinal: Present: soft. Absent: tenderness - Integumentary Integumentary: Absent: cyanotic - Neurologic Neurologic: Present: CNII-XII intact - Psychiatric Psychiatric: Present: A&O x's 3, intact judgment & insight - Labs CBC & Chem 7: 08/19/17 07:02 08/19/17 07:02 Labs: Abnormal Lab Results - Last 24 Hours (Table) 08/19/17 08/19/17 08/19/17 Range/Units 12:01 17:14 21:00 POC Glucose (mg/dL) 119 H 154 H 177 H (75-99) mg/dL Microbiology - Last 24 Hours (Table) 08/17/17 14:00 Gram Stain - Preliminary Sputum Sputum Culture - Preliminary Gram Neg Bacilli Marcia albicans Assessment and Plan (1) Dyspnea Current Visit: Yes Status: Acute Code(s): R06.00 - DYSPNEA, UNSPECIFIED SNOMED Code(s): 183283693 (2) Acute exacerbation of chronic obstructive airways disease Current Visit: No Status: Acute Code(s): J44.1 - CHRONIC OBSTRUCTIVE PULMONARY DISEASE W (ACUTE) EXACERBATION SNOMED Code(s): 871345771 (3) Hyperlipidemia Current Visit: No Status: Acute Code(s): E78.5 - HYPERLIPIDEMIA, UNSPECIFIED SNOMED Code(s): 28009460 (4) Hypertension Current Visit: No Status: Acute Code(s): I10 - ESSENTIAL (PRIMARY) HYPERTENSION SNOMED Code(s): 55436970 (5) Hypoxia Current Visit: No Status: Acute Code(s): R09.02 - HYPOXEMIA SNOMED Code(s) : 118310362 Plan: We will go and continue current regimen of medication. Appreciate pulmonology input. New. Check CBC and CMP in a.m. See orders otherwise. Time with Patient: Less than 30
[2017-08-20 08:12] LABS: Glucose,Whole Blood 128 mg/dL (75-99)
[2017-08-20] MEDS: BUDESONIDE 1 MG/2 ML NEBU INHALATION SCH ×2 (08:25→19:39)
[2017-08-20] MEDS: IPRATROPIUM-ALBUTEROL 3 ML NEB INHALATION SCH ×4 (08:25→19:40)
[2017-08-20] MEDS: FORMOTEROL FUMARATE 20 MCG/2 ML NEBU INHALATION SCH ×2 (08:25→19:39)
[2017-08-20] MEDS: INSULIN ASPART 100 UNIT/ML 1 ML 10 ML VIAL SQ SCH ×4 (08:26→20:47)
[2017-08-20 08:29] LABS: Anisocytosis Slight; Basophils % (A) 0 %; Eosinophils # (A) 0.1 k/uL (0-0.7); Eosinophils % (A) 1 %; HCT 36.6 % (39.0-53.0); HGB 11.3 gm/dL (13.0-17.5); Hypochromasia Slight; Lymphocytes # (A) 0.2 k/uL (1.0-4.8); Lymphocytes % (A) 3 %; MCH 28.2 pg (25.0-35.0); MCHC 30.9 g/dL (31.0-37.0); MCV 91.2 fL (80.0-100.0); Mean Platelet Volume 6.8; Monocytes # (A) 0.4 k/uL (0-1.0); Monocytes % (A) 5 %; Neutrophils # (A) 8.5 k/uL (1.3-7.7); Neutrophils % (A) 92 %; Platelet Count 290 k/uL (150-450); RBC 4.02 m/uL (4.30-5.90); RDW 16.4 % (11.5-15.5); WBC 9.2 k/uL (3.8-10.6)
[2017-08-20 09:28] LABS: ALT 23 U/L (21-72); AST 44 U/L (17-59); Albumin 3.8 g/dL (3.5-5.0); Alkaline Phosphatase 78 U/L (38-126); Anion Gap 12 mmol/L; Blood Urea Nitrogen 69 mg/dL (9-20); Calcium 9.5 mg/dL (8.4-10.2); Carbon Dioxide 29 mmol/L (22-30); Chloride 100 mmol/L (98-107); Glucose 118 mg/dL (74-99); Potassium 4.9 mmol/L (3.5-5.1); Sodium 141 mmol/L (137-145); Total Bilirubin 0.5 mg/dL (0.2-1.3); Total Protein 6.7 g/dL (6.3-8.2)
[2017-08-20] MEDS: LISINOPRIL-HCTZ 20-12.5 MG 1 EACH TAB PO SCH (10:08)
[2017-08-20] MEDS: TAMSULOSIN 0.4 MG CAP.ER.24H PO SCH ×2 (10:09→20:48)
[2017-08-20] MEDS: LEVOFLOXACIN 250 MG TAB PO SCH (10:09)
[2017-08-20] MEDS: ATORVASTATIN 20 MG TAB PO SCH (10:10)
[2017-08-20] MEDS: FUROSEMIDE 20 MG TAB PO SCH (10:10)
[2017-08-20] MEDS: HEPARIN SODIUM,PORCINE 5,000 UNIT/ML 1 ML VIAL SQ SCH ×2 (10:10→20:47)
--- NOTE | 2017-08-20 11:00 | P.PN ---
Subjective Progress Note Date: 08/20/17 Principal diagnosis: COPD exacerbation Progress note dated 08/18/2017 This is an 82-year-old male well-known to me. He has a history of severe end- stage oxygen-dependent COPD. He came to the emergency room complaining of increasing shortness of breath for a couple days prior to admission. In addition, he was coughing and wheezing producing some phlegm. No fever or chills. The patient was recently in the hospital with similar episode of COPD exacerbation. Yesterday, after evaluating him, he had a long talk with his . We did talk about CODE STATUS. I don't think Mr. Rodríguez will be a good candidate for intubation mechanical ventilation given the severity of his chronic lung disease. He is express to me in the past that he did not want to be on life support. I did talk to his and granddaughter they're giving some consideration. No decision has been made as yet. The patient does have history of chest pain deep venous thrombosis hyperlipidemia hypertension DJD and a previous episode of pneumonia as well as bladder cancer. Progress note dated 08/19/2017 This is an 82-year-old male well-known to me. He is a history of severe end- stage oxygen and steroid dependent COPD. He was recently in the hospital for a COPD exacerbation discharged home. He was home for a couple weeks and came back into the similar episode. I did have a long talk with his and granddaughter yesterday. They understand that the patient is quite ill. The patient's complaints include chest tightness wheezing cough chest congestion a very wet congested cough and phlegm production. No fever or chills. No chest pain or chest discomfort. He is getting maximal medical therapy. In addition to severe COPD, he has a history of chest pain, deep venous thrombosis, hyperlipidemia, hypertension, DJD, and previous episodes of pneumonia, as well as bladder cancer history. Progress note dated 06/19/2018 82-year-old male well-known to me. He has a history of severe end-stage oxygen and steroid dependent COPD. Feeling a bit better today. His primary doctor is Dr. Elizabeth. Apparently Dr. Elizabeth told him he would go home on a couple of days. I think the patient at baseline he could go home sooner. In addition to severe COPD, he has a history of chest pain DVT hyperlipidemia hypertension DJD and previous episodes of pneumonia as well as bladder cancer. A couple days ago , had a very long conversation with the patient's and granddaughter. I did express to them the fact that he has end-stage COPD and I believe that his clinical course with continued to decline. He's had 2 admissions here in the last month or so for the same episode. It is not much more to do with this patient and I did talk about CODE STATUS. He would not be a good candidate my opinion to go on the mechanical ventilator. Objective - Vital Signs Vital signs: Vital Signs Temp 97.4 F L 08/20/17 07:00 Pulse 106 H 08/20/17 10:47 Resp 18 08/20/17 10:47 BP 130/69 08/20/17 07:00 Pulse Ox 100 08/20/17 07:00 Intake & Output 08/19/17 08/20/17 08/20/17 18:59 06:59 18:59 Intake Total 235 120 480 Balance 235 120 480 Weight 60.9 kg Intake: Oral 235 120 480 Other: Voiding Method Toilet Toilet # Voids 1 - Exam No acute distress, oriented 3. Currently on nasal oxygen. HEENT examination is grossly unremarkable. Mucous membranes are moist. No oral lesions. Neck supple. Full range of motion. No adenopathy thyromegaly or neck vein distention. Cardiovascular examination reveals regular rhythm rate. S1-S2 normal. No S3 or S4. No discernible murmur noted. Heart sounds are distant. Lungs reveal bilateral coarse expiratory rhonchi. No distinct wheezes are noted. Breath sounds are diminished. Adventitious lung sounds are more prominent on forced maneuver. There is prolongation on forced maneuver. Breath sounds today are may be minimally improved overall. I believe he is at baseline though in terms of how he sounds. Abdomen soft bowel sounds are heard. No masses or tenderness. Extremities are intact. No cyanosis clubbing or edema. Skin is without rash or lesion. Neurologic examination is brief but nonfocal. - Labs CBC & Chem 7: 08/20/17 08:09 08/20/17 08:09 Labs: Abnormal Lab Results - Last 24 Hours (Table) 08/19/17 08/19/17 08/19/17 Range/Units 12:01 17:14 21:00 RBC (4.30-5.90) m/uL Hgb (13.0-17.5) gm/dL Hct (39.0-53.0) % MCHC (31.0-37.0) g/dL RDW (11.5-15.5) % Neutrophils # (1.3-7.7) k/uL Lymphocytes # (1.0-4.8) k/uL BUN (9-20) mg/dL Glucose (74-99) mg/dL POC Glucose (mg/dL) 119 H 154 H 177 H (75-99) mg/dL 08/20/17 08/20/17 08/20/17 Range/Units 08:09 08:09 08:09 RBC 4.02 L (4.30-5.90) m/uL Hgb 11.3 L (13.0-17.5) gm/dL Hct 36.6 L (39.0-53.0) % MCHC 30.9 L (31.0-37.0) g/dL RDW 16.4 H (11.5-15.5) % Neutrophils # 8.5 H (1.3-7.7) k/uL Lymphocytes # 0.2 L (1.0-4.8) k/uL BUN 69 H (9-20) mg/dL Glucose 118 H (74-99) mg/dL POC Glucose (mg/dL) 128 H (75-99) mg/dL Microbiology - Last 24 Hours (Table) 08/17/17 14:00 Gram Stain - Final Sputum Sputum Culture - Final Stenotrophomonas maltophilia Marcia albicans Assessment and Plan Assessment: COPD exacerbation, complicated by purulent tracheobronchitis Severe end-stage oxygen and steroid dependent COPD History of bladder cancer Chronic hypoxemia Angina pectoris History of deep venous thrombosis History of hyperlipidemia History of hypertension History of DJD Previous episode of pneumonia Chronic hypoxemia particularly at nighttime and with exertion, patient noncompliant with oxygen therapy. Plan: Plan dated 08/17/2017 The patient was interviewed and examined. I know the patient wants to see him in the office for a long period of time. I believe his family doctor is Dr. Elizabeth. The patient's medications are reviewed. X-rays and labs are reviewed. I did have a talk with the and the granddaughter about his declining situation. The patient should be a no code and should not go on life support should come to that. The will give it some thought. The patient's lung disease is quite severe. His overall situation last 6 months a significantly declined. We'll continue to follow. Prognosis is guarded. Plan dated 08/18/2017. The patient is situation is a bit better today. A bit less short of breath. Still very congested and wet sounding. I did have a conversation with the and granddaughter yesterday about CODE STATUS. They're giving some consideration. I don't believe Mr. Rodríguez will be a good candidate to go on life support. Labs x-rays a medications are all reviewed. Medications were adjusted yesterday. He is on the usual COPD cocktail. She'll recommendations and suggestions are forthcoming. Plan dated 08/19/2017 The patient seemed be doing a bit better. Not a lot better. Still very congested wet congested cough. Still very short of breath particularly with any exertion. Lots of wheezing and tightness in the chest. No fever or chills. No palpitations. No coughing up of blood. Is coughing up yellow phlegm. No nausea vomiting or diarrhea. We'll continue to follow. Prognosis is guarded. No additional recommendations are made at this time. Plan dated 08/20/2017 The patient seemed be doing a bit better. He feels better. Still very congested and wet. The patient apparently was seen by his primary doctor today who states that he could probably go home in a couple of days. I believe Mr. Rodríguez's at baseline he should go home in the next 24-48 hours. We'll leave that decision up to the primary though. I did have a conversation with him about end-of-life issues and also with his and granddaughter about end-of- life issues. He would not be a good candidate my opinion for mechanical ventilation. Additional recommendations and suggestions are forthcoming. Time with Patient: Less than 30
[2017-08-20 11:27] LABS: Glucose,Whole Blood 98 mg/dL (75-99)
[2017-08-20 17:34] LABS: Glucose,Whole Blood 145 mg/dL (75-99)
[2017-08-20 20:09] LABS: Glucose,Whole Blood 248 mg/dL (75-99)
[2017-08-21] MEDS: methylPREDNISolone SOD SUCCI 125 MG/2 ML VIAL IV SCH ×3 (06:27→17:33)
[2017-08-21 07:48] LABS: Glucose,Whole Blood 131 mg/dL (75-99)
[2017-08-21 08:11] LABS: Anisocytosis Slight; Basophils % (A) 0 %; Eosinophils % (A) 0 %; HCT 33.6 % (39.0-53.0); Hypochromasia Moderate; Lymphocytes # (A) 0.2 k/uL (1.0-4.8); Lymphocytes % (A) 2 %; MCH 27.5 pg (25.0-35.0); MCHC 29.8 g/dL (31.0-37.0); Mean Platelet Volume 6.8; Monocytes # (A) 0.2 k/uL (0-1.0); Monocytes % (A) 3 %; Neutrophils # (A) 7.2 k/uL (1.3-7.7); Neutrophils % (A) 94 %; Platelet Count 383 k/uL (150-450); RBC 3.65 m/uL (4.30-5.90); RDW 16.1 % (11.5-15.5); WBC 7.6 k/uL (3.8-10.6)
[2017-08-21 08:41] LABS: Anion Gap 9 mmol/L; Blood Urea Nitrogen 73 mg/dL (9-20); Carbon Dioxide 28 mmol/L (22-30); Chloride 101 mmol/L (98-107); Glucose 126 mg/dL (74-99); Potassium 5.1 mmol/L (3.5-5.1); Sodium 138 mmol/L (137-145)
[2017-08-21] MEDS: ATORVASTATIN 20 MG TAB PO SCH (08:46)
[2017-08-21] MEDS: LISINOPRIL-HCTZ 20-12.5 MG 1 EACH TAB PO SCH (08:46)
[2017-08-21] MEDS: LEVOFLOXACIN 250 MG TAB PO SCH (08:47)
[2017-08-21] MEDS: HEPARIN SODIUM,PORCINE 5,000 UNIT/ML 1 ML VIAL SQ SCH ×2 (08:47→21:05)
[2017-08-21] MEDS: FUROSEMIDE 20 MG TAB PO SCH (08:47)
[2017-08-21] MEDS: TAMSULOSIN 0.4 MG CAP.ER.24H PO SCH ×2 (08:47→21:05)
[2017-08-21] MEDS: INSULIN ASPART 100 UNIT/ML 1 ML 10 ML VIAL SQ SCH ×4 (08:48→20:48)
[2017-08-21] MEDS: FORMOTEROL FUMARATE 20 MCG/2 ML NEBU INHALATION SCH ×2 (09:00→19:18)
[2017-08-21] MEDS: BUDESONIDE 1 MG/2 ML NEBU INHALATION SCH ×2 (09:00→19:18)
[2017-08-21] MEDS: IPRATROPIUM-ALBUTEROL 3 ML NEB INHALATION SCH ×4 (09:00→19:18)
[2017-08-21 12:00] LABS: Glucose,Whole Blood 96 mg/dL (75-99)
--- NOTE | 2017-08-21 13:31 | P.PN ---
Subjective Progress Note Date: 08/21/17 Principal diagnosis: Acute COPD exacerbation Progress note dated 08/18/2017 This is an 82-year-old male well-known to me. He has a history of severe end- stage oxygen-dependent COPD. He came to the emergency room complaining of increasing shortness of breath for a couple days prior to admission. In addition, he was coughing and wheezing producing some phlegm. No fever or chills. The patient was recently in the hospital with similar episode of COPD exacerbation. Yesterday, after evaluating him, he had a long talk with his . We did talk about CODE STATUS. I don't think Mr. Rodríguez will be a good candidate for intubation mechanical ventilation given the severity of his chronic lung disease. He is express to me in the past that he did not want to be on life support. I did talk to his and granddaughter they're giving some consideration. No decision has been made as yet. The patient does have history of chest pain deep venous thrombosis hyperlipidemia hypertension DJD and a previous episode of pneumonia as well as bladder cancer. Progress note dated 08/19/2017 This is an 82-year-old male well-known to me. He is a history of severe end- stage oxygen and steroid dependent COPD. He was recently in the hospital for a COPD exacerbation discharged home. He was home for a couple weeks and came back into the similar episode. I did have a long talk with his and granddaughter yesterday. They understand that the patient is quite ill. The patient's complaints include chest tightness wheezing cough chest congestion a very wet congested cough and phlegm production. No fever or chills. No chest pain or chest discomfort. He is getting maximal medical therapy. In addition to severe COPD, he has a history of chest pain, deep venous thrombosis, hyperlipidemia, hypertension, DJD, and previous episodes of pneumonia, as well as bladder cancer history. Progress note dated 06/19/2018 82-year-old male well-known to me. He has a history of severe end-stage oxygen and steroid dependent COPD. Feeling a bit better today. His primary doctor is Dr. Elizabeth. Apparently Dr. Elizabeth told him he would go home on a couple of days. I think the patient at baseline he could go home sooner. In addition to severe COPD, he has a history of chest pain DVT hyperlipidemia hypertension DJD and previous episodes of pneumonia as well as bladder cancer. A couple days ago , had a very long conversation with the patient's and granddaughter. I did express to them the fact that he has end-stage COPD and I believe that his clinical course with continued to decline. He's had 2 admissions here in the last month or so for the same episode. It is not much more to do with this patient and I did talk about CODE STATUS. He would not be a good candidate my opinion to go on the mechanical ventilator. On 08/21/2017 patient seen in follow-up. He is been up ambulating, he was up to take a shower and shave. Still gets short of breath with exertion, but recovers with rest. Overall feeling better, still coughing, but bringing up less phlegm. Sputum culture was positive for Stenotrophomonas maltophilia, with sensitivity to Levaquin. Patient is currently on Levaquin. His vital signs remain stable, he is on 2 L per nasal cannula with O2 sat at 99%. Lung sounds are positive for expiratory wheezes, bilaterally, with some scattered rhonchi. He continues on DuoNeb, Pulmicort, Perforomist, oral Lasix, Levaquin, and IV Solu-Medrol 60 mg every 6 hours. Objective - Vital Signs Vital signs: Vital Signs Temp 97.6 F 08/21/17 07:38 Pulse 100 08/21/17 12:39 Resp 16 08/21/17 09:28 BP 134/63 08/21/17 07:38 Pulse Ox 99 08/21/17 07:38 Intake & Output 08/20/17 08/21/17 08/21/17 18:59 06:59 18:59 Intake Total 720 940 240 Output Total 175 Balance 545 940 240 Weight 60.9 kg Intake: Oral 720 940 240 Output: Urine 175 Other: Voiding Method Toilet Toilet Toilet # Voids 1 - Exam No acute distress, oriented 3. Currently on nasal oxygen. HEENT examination is grossly unremarkable. Mucous membranes are moist. No oral lesions. Neck supple. Full range of motion. No adenopathy thyromegaly or neck vein distention. Cardiovascular examination reveals regular rhythm rate. S1-S2 normal. No S3 or S4. No discernible murmur noted. Heart sounds are distant. Lungs reveal bilateral coarse expiratory rhonchi. No distinct wheezes are noted. Breath sounds are diminished. Adventitious lung sounds are more prominent on forced maneuver. There is prolongation on forced maneuver. Breath sounds today are may be minimally improved overall. I believe he is at baseline though in terms of how he sounds. Abdomen soft bowel sounds are heard. No masses or tenderness. Extremities are intact. No cyanosis clubbing or edema. Skin is without rash or lesion. Neurologic examination is brief but nonfocal. - Labs CBC & Chem 7: 08/21/17 07:41 08/21/17 07:41 Labs: Abnormal Lab Results - Last 24 Hours (Table) 08/20/17 08/20/17 08/21/17 Range/Units 17:29 20:08 07:20 RBC (4.30-5.90) m/uL Hgb (13.0-17.5) gm/dL Hct (39.0-53.0) % MCHC (31.0-37.0) g/dL RDW (11.5-15.5) % Lymphocytes # (1.0-4.8) k/uL BUN (9-20) mg/dL Glucose (74-99) mg/dL POC Glucose (mg/dL) 145 H 248 H 131 H (75-99) mg/dL 08/21/17 08/21/17 Range/Units 07:41 07:41 RBC 3.65 L (4.30-5.90) m/uL Hgb 10.0 L (13.0-17.5) gm/dL Hct 33.6 L (39.0-53.0) % MCHC 29.8 L (31.0-37.0) g/dL RDW 16.1 H (11.5-15.5) % Lymphocytes # 0.2 L (1.0-4.8) k/uL BUN 73 H (9-20) mg/dL Glucose 126 H (74-99) mg/dL POC Glucose (mg/dL) (75-99) mg/dL Microbiology - Last 24 Hours (Table) 08/17/17 14:00 Gram Stain - Final Sputum Sputum Culture - Final Stenotrophomonas maltophilia Marcia albicans Assessment and Plan Plan: Assessment: COPD exacerbation, complicated by purulent tracheobronchitis Severe end-stage oxygen and steroid dependent COPD History of bladder cancer Chronic hypoxemia Angina pectoris History of deep venous thrombosis History of hyperlipidemia History of hypertension History of DJD Previous episode of pneumonia Chronic hypoxemia particularly at nighttime and with exertion, patient noncompliant with oxygen therapy. Plan: Patient continues to improve, has been able to get up and take a shower and shave, and ambulate. Tolerated it well, although does get dyspnea with exertion , however he covers with rest. Lung sounds are still positive for diffuse wheezing, still has productive cough, but less chest congestion and less phlegm production noted. Sputum cultures were positive for Stenotrophomonas maltophilia with sensitivity to Levaquin. Continue with Levaquin, nebulized treatments, Perforomist, Pulmicort, and IV steroids. Anticipate discharge in next 24-48 hours. I performed a history & physical examination of the patient and discussed their management with my nurse practitioner, Dora Abarca. I reviewed the nurse practitioner's note and agree with the documented findings and plan of care. Lung sounds are positive for diffuse wheezes, and scattered rhonchi. The findings and the impression was discussed with the patient. I attest to the documentation by the nurse practitioner. Time with Patient: Less than 30
[2017-08-21 16:42] LABS: Glucose,Whole Blood 136 mg/dL (75-99)
[2017-08-21 20:23] LABS: Glucose,Whole Blood 125 mg/dL (75-99)
[2017-08-22] MEDS: methylPREDNISolone SOD SUCCI 125 MG/2 ML VIAL IV SCH ×5 (01:00→23:38)
[2017-08-22 07:56] LABS: Glucose,Whole Blood 161 mg/dL (75-99)
[2017-08-22 07:56] LABS: Anisocytosis Slight; Basophils % (A) 0 %; Eosinophils % (A) 1 %; HCT 33.1 % (39.0-53.0); HGB 10.2 gm/dL (13.0-17.5); Hypochromasia Slight; Lymphocytes # (A) 0.1 k/uL (1.0-4.8); Lymphocytes % (A) 2 %; MCH 27.8 pg (25.0-35.0); MCHC 30.9 g/dL (31.0-37.0); MCV 89.8 fL (80.0-100.0); Mean Platelet Volume 6.9; Monocytes # (A) 0.3 k/uL (0-1.0); Monocytes % (A) 3 %; Neutrophils # (A) 8.3 k/uL (1.3-7.7); Neutrophils % (A) 94 %; Platelet Count 358 k/uL (150-450); RBC 3.69 m/uL (4.30-5.90); RDW 16.1 % (11.5-15.5); WBC 8.8 k/uL (3.8-10.6)
[2017-08-22 08:08] LABS: Anion Gap 8 mmol/L; Blood Urea Nitrogen 72 mg/dL (9-20); Calcium 9.4 mg/dL (8.4-10.2); Carbon Dioxide 31 mmol/L (22-30); Chloride 99 mmol/L (98-107); Glucose 148 mg/dL (74-99); Potassium 4.5 mmol/L (3.5-5.1); Sodium 138 mmol/L (137-145)
[2017-08-22] MEDS: ATORVASTATIN 20 MG TAB PO SCH (08:12)
[2017-08-22] MEDS: FUROSEMIDE 20 MG TAB PO SCH (08:12)
[2017-08-22] MEDS: LEVOFLOXACIN 250 MG TAB PO SCH (08:13)
[2017-08-22] MEDS: TAMSULOSIN 0.4 MG CAP.ER.24H PO SCH ×2 (08:13→22:01)
[2017-08-22] MEDS: INSULIN ASPART 100 UNIT/ML 1 ML 10 ML VIAL SQ SCH ×4 (08:13→22:01)
[2017-08-22] MEDS: LISINOPRIL-HCTZ 20-12.5 MG 1 EACH TAB PO SCH (08:13)
[2017-08-22] MEDS: HEPARIN SODIUM,PORCINE 5,000 UNIT/ML 1 ML VIAL SQ SCH ×2 (08:18→22:01)
[2017-08-22] MEDS: IPRATROPIUM-ALBUTEROL 3 ML NEB INHALATION SCH ×4 (09:02→21:44)
[2017-08-22] MEDS: FORMOTEROL FUMARATE 20 MCG/2 ML NEBU INHALATION SCH ×2 (09:03→21:45)
[2017-08-22] MEDS: BUDESONIDE 1 MG/2 ML NEBU INHALATION SCH ×2 (09:03→21:45)
[2017-08-22 11:37] LABS: Glucose,Whole Blood 178 mg/dL (75-99)
--- NOTE | 2017-08-22 11:46 | P.PN ---
Subjective Progress Note Date: 08/22/17 Principal diagnosis: Acute COPD exacerbation Progress note dated 08/18/2017 This is an 82-year-old male well-known to me. He has a history of severe end- stage oxygen-dependent COPD. He came to the emergency room complaining of increasing shortness of breath for a couple days prior to admission. In addition, he was coughing and wheezing producing some phlegm. No fever or chills. The patient was recently in the hospital with similar episode of COPD exacerbation. Yesterday, after evaluating him, he had a long talk with his . We did talk about CODE STATUS. I don't think Mr. Rodríguez will be a good candidate for intubation mechanical ventilation given the severity of his chronic lung disease. He is express to me in the past that he did not want to be on life support. I did talk to his and granddaughter they're giving some consideration. No decision has been made as yet. The patient does have history of chest pain deep venous thrombosis hyperlipidemia hypertension DJD and a previous episode of pneumonia as well as bladder cancer. Progress note dated 08/19/2017 This is an 82-year-old male well-known to me. He is a history of severe end- stage oxygen and steroid dependent COPD. He was recently in the hospital for a COPD exacerbation discharged home. He was home for a couple weeks and came back into the similar episode. I did have a long talk with his and granddaughter yesterday. They understand that the patient is quite ill. The patient's complaints include chest tightness wheezing cough chest congestion a very wet congested cough and phlegm production. No fever or chills. No chest pain or chest discomfort. He is getting maximal medical therapy. In addition to severe COPD, he has a history of chest pain, deep venous thrombosis, hyperlipidemia, hypertension, DJD, and previous episodes of pneumonia, as well as bladder cancer history. Progress note dated 06/19/2018 82-year-old male well-known to me. He has a history of severe end-stage oxygen and steroid dependent COPD. Feeling a bit better today. His primary doctor is Dr. Elizabeth. Apparently Dr. Elizabeth told him he would go home on a couple of days. I think the patient at baseline he could go home sooner. In addition to severe COPD, he has a history of chest pain DVT hyperlipidemia hypertension DJD and previous episodes of pneumonia as well as bladder cancer. A couple days ago , had a very long conversation with the patient's and granddaughter. I did express to them the fact that he has end-stage COPD and I believe that his clinical course with continued to decline. He's had 2 admissions here in the last month or so for the same episode. It is not much more to do with this patient and I did talk about CODE STATUS. He would not be a good candidate my opinion to go on the mechanical ventilator. On 08/21/2017 patient seen in follow-up. He is been up ambulating, he was up to take a shower and shave. Still gets short of breath with exertion, but recovers with rest. Overall feeling better, still coughing, but bringing up less phlegm. Sputum culture was positive for Stenotrophomonas maltophilia, with sensitivity to Levaquin. Patient is currently on Levaquin. His vital signs remain stable, he is on 2 L per nasal cannula with O2 sat at 99%. Lung sounds are positive for expiratory wheezes, bilaterally, with some scattered rhonchi. He continues on DuoNeb, Pulmicort, Perforomist, oral Lasix, Levaquin, and IV Solu-Medrol 60 mg every 6 hours. On 08/22/2017 patient seen in follow-up area and he continues to improve. He denies any acute distress, although does become dyspneic with any exertion. He has been ambulating within the room, and on portable oxygen in the hallway, tolerates activity fairly well. On 2 L per nasal cannula his O2 sat at night 99 %. He is afebrile, vital signs are stable. Lung sounds are positive for some scattered wheezes, but this has improved from yesterday's exam. No rhonchi or rales noted. Patient has occasional productive cough with yellow sputum. Sputum culture was positive for Stenotrophomonas maltophilia with sensitivity to Levaquin, which the patient currently on. Continue current medical treatment. Objective - Vital Signs Vital signs: Vital Signs Temp 98.2 F 08/22/17 07:00 Pulse 70 08/22/17 09:58 Resp 18 08/22/17 09:58 BP 142/64 08/22/17 07:00 Pulse Ox 99 08/22/17 07:00 Intake & Output 08/21/17 08/22/17 08/22/17 18:59 06:59 18:59 Intake Total 240 500 Balance 240 500 Weight 60.9 kg Intake: Oral 240 500 Other: Voiding Method Toilet Toilet # Voids 1 1 - Exam No acute distress, oriented 3. Currently on nasal oxygen. HEENT examination is grossly unremarkable. Mucous membranes are moist. No oral lesions. Neck supple. Full range of motion. No adenopathy thyromegaly or neck vein distention. Cardiovascular examination reveals regular rhythm rate. S1-S2 normal. No S3 or S4. No discernible murmur noted. Heart sounds are distant. Lungs reveal a positive for scattered wheezes, no rhonchi or rales noted. There is good air entry bilaterally. Overall there has been improvement in terms of wheezing and rhonchi Abdomen soft bowel sounds are heard. No masses or tenderness. Extremities are intact. No cyanosis clubbing or edema. Skin is without rash or lesion. Neurologic examination is brief but nonfocal. - Labs CBC & Chem 7: 08/22/17 07:35 08/22/17 07:35 Labs: Abnormal Lab Results - Last 24 Hours (Table) 08/21/17 08/21/17 08/22/17 Range/Units 16:41 20:21 07:35 RBC 3.69 L (4.30-5.90) m/uL Hgb 10.2 L (13.0-17.5) gm/dL Hct 33.1 L (39.0-53.0) % MCHC 30.9 L (31.0-37.0) g/dL RDW 16.1 H (11.5-15.5) % Neutrophils # 8.3 H (1.3-7.7) k/uL Lymphocytes # 0.1 L (1.0-4.8) k/uL Carbon Dioxide (22-30) mmol/L BUN (9-20) mg/dL Glucose (74-99) mg/dL POC Glucose (mg/dL) 136 H 125 H (75-99) mg/dL 08/22/17 08/22/17 08/22/17 Range/Units 07:35 07:40 11:32 RBC (4.30-5.90) m/uL Hgb (13.0-17.5) gm/dL Hct (39.0-53.0) % MCHC (31.0-37.0) g/dL RDW (11.5-15.5) % Neutrophils # (1.3-7.7) k/uL Lymphocytes # (1.0-4.8) k/uL Carbon Dioxide 31 H (22-30) mmol/L BUN 72 H (9-20) mg/dL Glucose 148 H (74-99) mg/dL POC Glucose (mg/dL) 161 H 178 H (75-99) mg/dL Assessment and Plan Plan: Assessment: COPD exacerbation, complicated by purulent tracheobronchitis Severe end-stage oxygen and steroid dependent COPD History of bladder cancer Chronic hypoxemia Angina pectoris History of deep venous thrombosis History of hyperlipidemia History of hypertension History of DJD Previous episode of pneumonia Chronic hypoxemia particularly at nighttime and with exertion, patient noncompliant with oxygen therapy. Plan: Patient continues to improve, has been ambulating within the room, tolerating it fairly well, although does become dyspneic but recovers with rest. Lung sounds are positive for some expiratory wheezes, no rhonchi or rales. Continues with productive cough, with yellow sputum. Vitals remained stable, patient is afebrile, sputum culture was positive for Stenotrophomonas maltophilia with sensitivity to Levaquin. Patient is on Levaquin right now I performed a history & physical examination of the patient and discussed their management with my nurse practitioner, Dora Abarca. I reviewed the nurse practitioner's note and agree with the documented findings and plan of care. Lung sounds are positive for diffuse wheezes. The findings and the impression was discussed with the patient. I attest to the documentation by the nurse practitioner. Time with Patient: Less than 30
[2017-08-22 17:11] LABS: Glucose,Whole Blood 153 mg/dL (75-99)
[2017-08-22 20:48] LABS: Glucose,Whole Blood 184 mg/dL (75-99)
[2017-08-23] MEDS: methylPREDNISolone SOD SUCCI 125 MG/2 ML VIAL IV SCH (05:28)
[2017-08-23] MEDS: BUDESONIDE 1 MG/2 ML NEBU INHALATION SCH ×2 (07:19→19:53)
[2017-08-23] MEDS: IPRATROPIUM-ALBUTEROL 3 ML NEB INHALATION SCH ×4 (07:19→19:53)
[2017-08-23] MEDS: FORMOTEROL FUMARATE 20 MCG/2 ML NEBU INHALATION SCH ×2 (07:19→19:53)
[2017-08-23 07:42] LABS: Glucose,Whole Blood 159 mg/dL (75-99)
[2017-08-23] MEDS: HEPARIN SODIUM,PORCINE 5,000 UNIT/ML 1 ML VIAL SQ SCH ×2 (07:52→21:10)
[2017-08-23] MEDS: ATORVASTATIN 20 MG TAB PO SCH (07:52)
[2017-08-23] MEDS: TAMSULOSIN 0.4 MG CAP.ER.24H PO SCH ×2 (07:52→21:11)
[2017-08-23] MEDS: FUROSEMIDE 20 MG TAB PO SCH (07:52)
[2017-08-23] MEDS: LEVOFLOXACIN 250 MG TAB PO SCH (07:53)
[2017-08-23] MEDS: INSULIN ASPART 100 UNIT/ML 1 ML 10 ML VIAL SQ SCH ×4 (07:53→20:57)
[2017-08-23] MEDS: LISINOPRIL-HCTZ 20-12.5 MG 1 EACH TAB PO SCH (07:53)
[2017-08-23] MEDS: predniSONE 20 MG TAB PO SCH (10:27)
[2017-08-23 12:01] LABS: Glucose,Whole Blood 182 mg/dL (75-99)
--- NOTE | 2017-08-23 12:17 | P.PN ---
Subjective Progress Note Date: 08/23/17 Principal diagnosis: Acute on chronic hypoxic respiratory failure secondary to COPD exacerbation. Progress note dated 08/18/2017 This is an 82-year-old male well-known to me. He has a history of severe end- stage oxygen-dependent COPD. He came to the emergency room complaining of increasing shortness of breath for a couple days prior to admission. In addition, he was coughing and wheezing producing some phlegm. No fever or chills. The patient was recently in the hospital with similar episode of COPD exacerbation. Yesterday, after evaluating him, he had a long talk with his . We did talk about CODE STATUS. I don't think Mr. Rodríguez will be a good candidate for intubation mechanical ventilation given the severity of his chronic lung disease. He is express to me in the past that he did not want to be on life support. I did talk to his and granddaughter they're giving some consideration. No decision has been made as yet. The patient does have history of chest pain deep venous thrombosis hyperlipidemia hypertension DJD and a previous episode of pneumonia as well as bladder cancer. Progress note dated 08/19/2017 This is an 82-year-old male well-known to me. He is a history of severe end- stage oxygen and steroid dependent COPD. He was recently in the hospital for a COPD exacerbation discharged home. He was home for a couple weeks and came back into the similar episode. I did have a long talk with his and granddaughter yesterday. They understand that the patient is quite ill. The patient's complaints include chest tightness wheezing cough chest congestion a very wet congested cough and phlegm production. No fever or chills. No chest pain or chest discomfort. He is getting maximal medical therapy. In addition to severe COPD, he has a history of chest pain, deep venous thrombosis, hyperlipidemia, hypertension, DJD, and previous episodes of pneumonia, as well as bladder cancer history. Progress note dated 06/19/2018 82-year-old male well-known to me. He has a history of severe end-stage oxygen and steroid dependent COPD. Feeling a bit better today. His primary doctor is Dr. Elizabeth. Apparently Dr. Elizabeth told him he would go home on a couple of days. I think the patient at baseline he could go home sooner. In addition to severe COPD, he has a history of chest pain DVT hyperlipidemia hypertension DJD and previous episodes of pneumonia as well as bladder cancer. A couple days ago , had a very long conversation with the patient's and granddaughter. I did express to them the fact that he has end-stage COPD and I believe that his clinical course with continued to decline. He's had 2 admissions here in the last month or so for the same episode. It is not much more to do with this patient and I did talk about CODE STATUS. He would not be a good candidate my opinion to go on the mechanical ventilator. On 08/21/2017 patient seen in follow-up. He is been up ambulating, he was up to take a shower and shave. Still gets short of breath with exertion, but recovers with rest. Overall feeling better, still coughing, but bringing up less phlegm. Sputum culture was positive for Stenotrophomonas maltophilia, with sensitivity to Levaquin. Patient is currently on Levaquin. His vital signs remain stable, he is on 2 L per nasal cannula with O2 sat at 99%. Lung sounds are positive for expiratory wheezes, bilaterally, with some scattered rhonchi. He continues on DuoNeb, Pulmicort, Perforomist, oral Lasix, Levaquin, and IV Solu-Medrol 60 mg every 6 hours. On 08/22/2017 patient seen in follow-up area and he continues to improve. He denies any acute distress, although does become dyspneic with any exertion. He has been ambulating within the room, and on portable oxygen in the hallway, tolerates activity fairly well. On 2 L per nasal cannula his O2 sat at night 99 %. He is afebrile, vital signs are stable. Lung sounds are positive for some scattered wheezes, but this has improved from yesterday's exam. No rhonchi or rales noted. Patient has occasional productive cough with yellow sputum. Sputum culture was positive for Stenotrophomonas maltophilia with sensitivity to Levaquin, which the patient currently on. Continue current medical treatment. Reevaluated today on 08/23/2017, patient is feeling better, breathing easier, less cough and less wheezing less shortness of breath. On physical examination continues to have some wheezing, but significantly improved compared to yesterday. Patient will be cleared for discharge home today, must remain on Levaquin and on prednisone burst and taper over the next 2-3 weeks. Objective - Vital Signs Vital signs: Vital Signs Temp 97.1 F L 08/23/17 07:00 Pulse 92 08/23/17 11:31 Resp 17 08/23/17 09:46 BP 143/59 08/23/17 07:00 Pulse Ox 100 08/23/17 07:00 Intake & Output 08/22/17 08/23/17 08/23/17 18:59 06:59 18:59 Intake Total 240 Balance 240 Intake: Oral 240 Other: Voiding Method Toilet Toilet Toilet # Voids 3 1 - Exam Physical exam revealed an 82-year-old white male in no distress, very pleasant HEENT examination is grossly unremarkable. Mucous membranes are moist. No oral lesions. Neck supple. Full range of motion. No adenopathy thyromegaly or neck vein distention. Cardiovascular examination reveals regular rhythm rate. S1-S2 normal. No S3 or S4. No discernible murmur noted. Heart sounds are distant. Lungs : Revealed diminished breath sounds at the bases, wheezing bilaterally more so on forced expiratory maneuver. Abdomen soft bowel sounds are heard. No masses or tenderness. Extremities are intact. No cyanosis clubbing or edema. Skin is without rash or lesion. Neurologic examination no gross focal neurologic deficit. - Labs CBC & Chem 7: 08/22/17 07:35 08/22/17 07:35 Labs: Abnormal Lab Results - Last 24 Hours (Table) 08/22/17 08/22/17 08/23/17 Range/Units 17:09 20:46 07:23 POC Glucose (mg/dL) 153 H 184 H 159 H (75-99) mg/dL 08/23/17 Range/Units 11:58 POC Glucose (mg/dL) 182 H (75-99) mg/dL Assessment and Plan Assessment: COPD exacerbation, complicated by purulent tracheobronchitis Severe end-stage oxygen and steroid dependent COPD History of bladder cancer Chronic hypoxemia Angina pectoris History of deep venous thrombosis History of hyperlipidemia History of hypertension History of DJD Previous episode of pneumonia Acute on chronic hypoxic respiratory failure secondary to COPD exacerbation. Plan: Patient can be switched to oral prednisone S3 0 mg daily, continue Levaquin, continue bronchodilators, clear for discharge home today, follow up with Dr. Genao and on outpatient basis. Time with Patient: Less than 30
[2017-08-23 17:45] LABS: Glucose,Whole Blood 136 mg/dL (75-99)
[2017-08-23 20:44] LABS: Glucose,Whole Blood 126 mg/dL (75-99)
[2017-08-24 07:03] LABS: Glucose,Whole Blood 84 mg/dL (75-99)
[2017-08-24] MEDS: INSULIN ASPART 100 UNIT/ML 1 ML 10 ML VIAL SQ SCH ×4 (07:10→20:49)
[2017-08-24] MEDS: IPRATROPIUM-ALBUTEROL 3 ML NEB INHALATION SCH ×4 (08:23→19:09)
[2017-08-24] MEDS: BUDESONIDE 1 MG/2 ML NEBU INHALATION SCH ×2 (08:23→19:08)
[2017-08-24] MEDS: FORMOTEROL FUMARATE 20 MCG/2 ML NEBU INHALATION SCH ×2 (08:24→19:08)
[2017-08-24 11:01] LABS: Glucose,Whole Blood 125 mg/dL (75-99)
[2017-08-24] MEDS: LISINOPRIL-HCTZ 20-12.5 MG 1 EACH TAB PO SCH (12:09)
--- NOTE | 2017-08-24 12:42 | P.PN ---
Subjective Progress Note Date: 08/24/17 Principal diagnosis: Acute on chronic hypoxic respiratory failure secondary to COPD exacerbation. Progress note dated 08/18/2017 This is an 82-year-old male well-known to me. He has a history of severe end- stage oxygen-dependent COPD. He came to the emergency room complaining of increasing shortness of breath for a couple days prior to admission. In addition, he was coughing and wheezing producing some phlegm. No fever or chills. The patient was recently in the hospital with similar episode of COPD exacerbation. Yesterday, after evaluating him, he had a long talk with his . We did talk about CODE STATUS. I don't think Mr. Rodríguez will be a good candidate for intubation mechanical ventilation given the severity of his chronic lung disease. He is express to me in the past that he did not want to be on life support. I did talk to his and granddaughter they're giving some consideration. No decision has been made as yet. The patient does have history of chest pain deep venous thrombosis hyperlipidemia hypertension DJD and a previous episode of pneumonia as well as bladder cancer. Progress note dated 08/19/2017 This is an 82-year-old male well-known to me. He is a history of severe end- stage oxygen and steroid dependent COPD. He was recently in the hospital for a COPD exacerbation discharged home. He was home for a couple weeks and came back into the similar episode. I did have a long talk with his and granddaughter yesterday. They understand that the patient is quite ill. The patient's complaints include chest tightness wheezing cough chest congestion a very wet congested cough and phlegm production. No fever or chills. No chest pain or chest discomfort. He is getting maximal medical therapy. In addition to severe COPD, he has a history of chest pain, deep venous thrombosis, hyperlipidemia, hypertension, DJD, and previous episodes of pneumonia, as well as bladder cancer history. Progress note dated 06/19/2018 82-year-old male well-known to me. He has a history of severe end-stage oxygen and steroid dependent COPD. Feeling a bit better today. His primary doctor is Dr. Elizabeth. Apparently Dr. Elizabeth told him he would go home on a couple of days. I think the patient at baseline he could go home sooner. In addition to severe COPD, he has a history of chest pain DVT hyperlipidemia hypertension DJD and previous episodes of pneumonia as well as bladder cancer. A couple days ago , had a very long conversation with the patient's and granddaughter. I did express to them the fact that he has end-stage COPD and I believe that his clinical course with continued to decline. He's had 2 admissions here in the last month or so for the same episode. It is not much more to do with this patient and I did talk about CODE STATUS. He would not be a good candidate my opinion to go on the mechanical ventilator. On 08/21/2017 patient seen in follow-up. He is been up ambulating, he was up to take a shower and shave. Still gets short of breath with exertion, but recovers with rest. Overall feeling better, still coughing, but bringing up less phlegm. Sputum culture was positive for Stenotrophomonas maltophilia, with sensitivity to Levaquin. Patient is currently on Levaquin. His vital signs remain stable, he is on 2 L per nasal cannula with O2 sat at 99%. Lung sounds are positive for expiratory wheezes, bilaterally, with some scattered rhonchi. He continues on DuoNeb, Pulmicort, Perforomist, oral Lasix, Levaquin, and IV Solu-Medrol 60 mg every 6 hours. On 08/22/2017 patient seen in follow-up area and he continues to improve. He denies any acute distress, although does become dyspneic with any exertion. He has been ambulating within the room, and on portable oxygen in the hallway, tolerates activity fairly well. On 2 L per nasal cannula his O2 sat at night 99 %. He is afebrile, vital signs are stable. Lung sounds are positive for some scattered wheezes, but this has improved from yesterday's exam. No rhonchi or rales noted. Patient has occasional productive cough with yellow sputum. Sputum culture was positive for Stenotrophomonas maltophilia with sensitivity to Levaquin, which the patient currently on. Continue current medical treatment. Reevaluated today on 08/23/2017, patient is feeling better, breathing easier, less cough and less wheezing less shortness of breath. On physical examination continues to have some wheezing, but significantly improved compared to yesterday. Patient will be cleared for discharge home today, must remain on Levaquin and on prednisone burst and taper over the next 2-3 weeks. Reevaluated today on 08/24/2017, patient continues to do well, I have cleared him for discharge, yesterday and I will clear him again today. Patient was switched to oral Levaquin and prednisone. Objective - Vital Signs Vital signs: Vital Signs Temp 98 F 08/24/17 07:00 Pulse 110 H 08/24/17 12:22 Resp 18 08/24/17 12:22 BP 91/48 08/24/17 07:00 Pulse Ox 98 08/24/17 08:24 Intake & Output 08/23/17 08/24/17 08/24/17 18:59 06:59 18:59 Other: Voiding Method Toilet Toilet # Voids 2 1 - Exam Physical exam revealed an 82-year-old white male in no distress, very pleasant HEENT examination is grossly unremarkable. Mucous membranes are moist. No oral lesions. Neck supple. Full range of motion. No adenopathy thyromegaly or neck vein distention. Cardiovascular examination reveals regular rhythm rate. S1-S2 normal. No S3 or S4. No discernible murmur noted. Heart sounds are distant. Lungs : Revealed diminished breath sounds at the bases, wheezing bilaterally more so on forced expiratory maneuver. Abdomen soft bowel sounds are heard. No masses or tenderness. Extremities are intact. No cyanosis clubbing or edema. Skin is without rash or lesion. Neurologic examination no gross focal neurologic deficit. - Labs CBC & Chem 7: 08/22/17 07:35 08/22/17 07:35 Labs: Abnormal Lab Results - Last 24 Hours (Table) 08/23/17 08/23/17 08/24/17 Range/Units 17:37 20:23 10:59 POC Glucose (mg/dL) 136 H 126 H 125 H (75-99) mg/dL Assessment and Plan Assessment: COPD exacerbation, complicated by purulent tracheobronchitis Severe end-stage oxygen and steroid dependent COPD History of bladder cancer Chronic hypoxemia Angina pectoris History of deep venous thrombosis History of hyperlipidemia History of hypertension History of DJD Previous episode of pneumonia Acute on chronic hypoxic respiratory failure secondary to COPD exacerbation. Plan: Continue present meds, clear for discharge planning today. Time with Patient: Less than 30
[2017-08-24] MEDS: HEPARIN SODIUM,PORCINE 5,000 UNIT/ML 1 ML VIAL SQ SCH ×2 (13:36→20:49)
[2017-08-24] MEDS: TAMSULOSIN 0.4 MG CAP.ER.24H PO SCH ×2 (13:36→20:49)
[2017-08-24] MEDS: predniSONE 20 MG TAB PO SCH (13:37)
[2017-08-24] MEDS: FUROSEMIDE 20 MG TAB PO SCH (13:37)
[2017-08-24] MEDS: ATORVASTATIN 20 MG TAB PO SCH (13:37)
[2017-08-24] MEDS: LEVOFLOXACIN 250 MG TAB PO SCH (13:37)
--- NOTE | 2017-08-24 16:41 | PN ---
PROGRESS NOTE DATE OF SERVICE: 08/24/2017 I am covering for Dr. Elizabeth. This 82-year-old gentleman was admitted with COPD acute exacerbation is being closely monitored. Patient still has shortness of breath. The patient is on p.o. steroids at this time and as well as bronchodilators. Dr. Robles is following the patient closely. There is no history of fever, rigors. No headache, loss of consciousness, seizures at this time. PHYSICAL EXAM: Patient is alert, oriented x3. Pulse is 100, blood pressure 120/70, respiration 20, temperature 98 degrees, pulse ox 100% on room air. HEENT: Conjunctivae normal. NECK: No jugular venous distention. CARDIOVASCULAR: S1, S2. RESPIRATORY: Breath sounds diminished in the bases. Bilateral scattered rhonchi and crackles. Expiratory wheezing also present. ABDOMEN: Soft, nontender. LEGS: No edema. No swelling. NERVOUS SYSTEM: No focal deficits. LABS: WBC 8.1, hemoglobin 10.8. Accu-Cheks are noted. ASSESSMENT: 1. Chronic obstructive pulmonary disease acute exacerbation with acute purulent tracheobronchitis. 2. Small nodule on the right in the chest x-ray. 3. History of deep vein thrombosis. 4. Hypertension. 5. History of bladder cancer. 6. Hyperlipidemia. 7. History of degenerative joint disease. 8. History of chronic hypoxic respiratory failure on home O2 nasal cannula. 9. History of bladder surgery. RECOMMENDATIONS AND DISCUSSION: I recommend to continue current management and symptomatic treatment. Otherwise at this time, closely follow with Dr. Robles. Continue with steroids, continue the bronchodilators. Continue with the rest of the medications. Prognosis guarded because of multiple complex medical issues. Further recommendations to follow. MMODL / IJN: [id number] /
[2017-08-24 17:18] LABS: Glucose,Whole Blood 151 mg/dL (75-99)
[2017-08-24 20:36] LABS: Glucose,Whole Blood 197 mg/dL (75-99)
[2017-08-25 07:05] LABS: Glucose,Whole Blood 87 mg/dL (75-99)
[2017-08-25] MEDS: INSULIN ASPART 100 UNIT/ML 1 ML 10 ML VIAL SQ SCH ×2 (07:12→13:05)
[2017-08-25] MEDS: IPRATROPIUM-ALBUTEROL 3 ML NEB INHALATION SCH ×3 (07:12→15:16)
[2017-08-25] MEDS: BUDESONIDE 1 MG/2 ML NEBU INHALATION SCH (07:14)
[2017-08-25] MEDS: FORMOTEROL FUMARATE 20 MCG/2 ML NEBU INHALATION SCH (07:14)
[2017-08-25 10:00] VITALS: BP 125/79; TEMP 98.4
[2017-08-25] MEDS: FUROSEMIDE 20 MG TAB PO SCH (10:19)
[2017-08-25] MEDS: HEPARIN SODIUM,PORCINE 5,000 UNIT/ML 1 ML VIAL SQ SCH (10:19)
[2017-08-25] MEDS: LISINOPRIL-HCTZ 20-12.5 MG 1 EACH TAB PO SCH (10:19)
[2017-08-25] MEDS: predniSONE 20 MG TAB PO SCH (10:19)
[2017-08-25] MEDS: ATORVASTATIN 20 MG TAB PO SCH (10:19)
[2017-08-25] MEDS: TAMSULOSIN 0.4 MG CAP.ER.24H PO SCH (10:19)
[2017-08-25 11:31] LABS: Glucose,Whole Blood 124 mg/dL (75-99)
--- NOTE | 2017-08-25 12:49 | DS ---
DISCHARGE SUMMARY FINAL DIAGNOSES: 1. Chronic obstructive pulmonary disease acute exacerbation with acute purulent tracheobronchitis. 2. Small nodule in the right side in the chest x-ray to be followed up in the outpatient. 3. History of deep vein thrombosis. 4. Hypertension. 5. History of bladder cancer. 6. Hyperlipidemia. 7. History of degenerative joint disease. 8. History of chronic hypoxic respiratory failure on home O2 nasal cannula. 9. History of bladder surgery. DISCHARGE DISPOSITION: The patient is being discharged in stable condition with guarded prognosis. HISTORY OF PRESENT ILLNESS: This 82-year-old gentleman with past medical history of multiple medical problems being followed by Dr. Elizabeth in the outpatient setting was admitted with COPD exacerbation. Patient treated with bronchodilators and steroids. Patient improved significantly. Dr. Chavarria saw the patient during the hospitalization. PHYSICAL EXAMINATION: On exam, vital signs are stable. Cardiovascular: S1, S2 muffled. Respiratory: A few scattered rhonchi. The patient is being discharged in stable condition with guarded prognosis with the following advice and medications: 1. Diet is cardiac diet. 2. Activity limited until followup. 3. Follow up with Dr. Elizabeth's in 1 to 2 days. 4. Follow up with Dr. Chavarria as advised. MEDICATIONS: 1. ProAir HFA 2 puffs q.i.d. and p.r.n. 2. Breo Ellipta as before. 3. Lasix 20 mg p.o. daily. 4. Albuterol Atrovent updrafts q.i.d. 5. Lisinopril hydrochlorothiazide 20/12.5 mg 1 p.o. daily. 6. K-Dur 20 mEq p.o. daily. 7. Prednisone taper 40 mg p.o. for 3 days, 30 for 3 days, 20 for 3 days, 10 for 3 days and then 5 mg p.o. daily maintenance. 8. Zocor 40 mg p.o. daily. 9. Flomax 0.4 b.i.d. 10.Incruse Ellipta. MMODL / IJN: [id number] /
[2017-08-25 15:19] VITALS: RESP 16
[2017-08-25 15:29] VITALS: PULSE 74
--- NOTE | 2017-08-25 15:44 | P.PN ---
Subjective Progress Note Date: 08/25/17 Principal diagnosis: Acute on chronic hypoxic respiratory failure secondary to COPD exacerbation. Progress note dated 08/18/2017 This is an 82-year-old male well-known to me. He has a history of severe end- stage oxygen-dependent COPD. He came to the emergency room complaining of increasing shortness of breath for a couple days prior to admission. In addition, he was coughing and wheezing producing some phlegm. No fever or chills. The patient was recently in the hospital with similar episode of COPD exacerbation. Yesterday, after evaluating him, he had a long talk with his . We did talk about CODE STATUS. I don't think Mr. Rodríguez will be a good candidate for intubation mechanical ventilation given the severity of his chronic lung disease. He is express to me in the past that he did not want to be on life support. I did talk to his and granddaughter they're giving some consideration. No decision has been made as yet. The patient does have history of chest pain deep venous thrombosis hyperlipidemia hypertension DJD and a previous episode of pneumonia as well as bladder cancer. Progress note dated 08/19/2017 This is an 82-year-old male well-known to me. He is a history of severe end- stage oxygen and steroid dependent COPD. He was recently in the hospital for a COPD exacerbation discharged home. He was home for a couple weeks and came back into the similar episode. I did have a long talk with his and granddaughter yesterday. They understand that the patient is quite ill. The patient's complaints include chest tightness wheezing cough chest congestion a very wet congested cough and phlegm production. No fever or chills. No chest pain or chest discomfort. He is getting maximal medical therapy. In addition to severe COPD, he has a history of chest pain, deep venous thrombosis, hyperlipidemia, hypertension, DJD, and previous episodes of pneumonia, as well as bladder cancer history. Progress note dated 06/19/2018 82-year-old male well-known to me. He has a history of severe end-stage oxygen and steroid dependent COPD. Feeling a bit better today. His primary doctor is Dr. Elizabeth. Apparently Dr. Elizabeth told him he would go home on a couple of days. I think the patient at baseline he could go home sooner. In addition to severe COPD, he has a history of chest pain DVT hyperlipidemia hypertension DJD and previous episodes of pneumonia as well as bladder cancer. A couple days ago , had a very long conversation with the patient's and granddaughter. I did express to them the fact that he has end-stage COPD and I believe that his clinical course with continued to decline. He's had 2 admissions here in the last month or so for the same episode. It is not much more to do with this patient and I did talk about CODE STATUS. He would not be a good candidate my opinion to go on the mechanical ventilator. On 08/21/2017 patient seen in follow-up. He is been up ambulating, he was up to take a shower and shave. Still gets short of breath with exertion, but recovers with rest. Overall feeling better, still coughing, but bringing up less phlegm. Sputum culture was positive for Stenotrophomonas maltophilia, with sensitivity to Levaquin. Patient is currently on Levaquin. His vital signs remain stable, he is on 2 L per nasal cannula with O2 sat at 99%. Lung sounds are positive for expiratory wheezes, bilaterally, with some scattered rhonchi. He continues on DuoNeb, Pulmicort, Perforomist, oral Lasix, Levaquin, and IV Solu-Medrol 60 mg every 6 hours. On 08/22/2017 patient seen in follow-up area and he continues to improve. He denies any acute distress, although does become dyspneic with any exertion. He has been ambulating within the room, and on portable oxygen in the hallway, tolerates activity fairly well. On 2 L per nasal cannula his O2 sat at night 99 %. He is afebrile, vital signs are stable. Lung sounds are positive for some scattered wheezes, but this has improved from yesterday's exam. No rhonchi or rales noted. Patient has occasional productive cough with yellow sputum. Sputum culture was positive for Stenotrophomonas maltophilia with sensitivity to Levaquin, which the patient currently on. Continue current medical treatment. Reevaluated today on 08/23/2017, patient is feeling better, breathing easier, less cough and less wheezing less shortness of breath. On physical examination continues to have some wheezing, but significantly improved compared to yesterday. Patient will be cleared for discharge home today, must remain on Levaquin and on prednisone burst and taper over the next 2-3 weeks. Reevaluated today on 08/24/2017, patient continues to do well, I have cleared him for discharge, yesterday and I will clear him again today. Patient was switched to oral Levaquin and prednisone. Reevaluated today on 08/25/2017, patient continues to do well, and I have made recommendations that the patient was cleared for discharge home today. I even discussed his condition with Dr. Vuong on the case. He is covering Dr. Elizabeth. Objective - Vital Signs Vital signs: Vital Signs Temp 98.4 F 08/25/17 07:00 Pulse 74 08/25/17 15:29 Resp 16 08/25/17 15:29 BP 125/79 08/25/17 07:00 Pulse Ox 97 08/25/17 12:43 Intake & Output 08/24/17 08/25/17 08/25/17 18:59 06:59 18:59 Intake Total 400 700 0 Balance 400 700 0 Intake: Oral 400 700 0 Other: Voiding Method Toilet Toilet Toilet # Voids 2 1 3 # Bowel Movements 1 1 - Exam Physical exam revealed an 82-year-old white male in no distress, very pleasant HEENT examination is grossly unremarkable. Mucous membranes are moist. No oral lesions. Neck supple. Full range of motion. No adenopathy thyromegaly or neck vein distention. Cardiovascular examination reveals regular rhythm rate. S1-S2 normal. No S3 or S4. No discernible murmur noted. Heart sounds are distant. Lungs : Revealed diminished breath sounds at the bases, minimal wheezing bilaterally more so on forced expiratory maneuver. Abdomen soft bowel sounds are heard. No masses or tenderness. Extremities are intact. No cyanosis clubbing or edema. Skin is without rash or lesion. Neurologic examination no gross focal neurologic deficit. - Labs CBC & Chem 7: 08/22/17 07:35 08/22/17 07:35 Labs: Abnormal Lab Results - Last 24 Hours (Table) 08/24/17 08/24/17 08/25/17 Range/Units 17:17 20:02 11:26 POC Glucose (mg/dL) 151 H 197 H 124 H (75-99) mg/dL Assessment and Plan Assessment: COPD exacerbation, complicated by purulent tracheobronchitis Severe end-stage oxygen and steroid dependent COPD History of bladder cancer Chronic hypoxemia Angina pectoris History of deep venous thrombosis History of hyperlipidemia History of hypertension History of DJD Previous episode of pneumonia Acute on chronic hypoxic respiratory failure secondary to COPD exacerbation. Plan: Continue present meds, clear for discharge again today , discussed with Dr. Vuong who is covering for Dr. Elizabeth. Time with Patient: Less than 30
== END 2017-08-25 16:51 | disposition home health service (06) | DRG 191 ==
LOC: EC 16:39 → 5MS5E 18:57 → OBSVTOIN 08-18 14:44 → 5ONC 08-23 17:59
PROVIDERS: ADMIT Family Medicine; ATTEND Family Medicine
DX: J44.1 Chronic obstructive pulmonary disease with (acute) exacerbation (principal); J96.11 Chronic respiratory failure with hypoxia; Z99.81 Dependence on supplemental oxygen; E78.5 Hyperlipidemia, unspecified; H91.90 Unspecified hearing loss, unspecified ear; I10 Essential (primary) hypertension; Z79.52 Long term (current) use of systemic steroids; Z79.899 Other long term (current) drug therapy; Z80.9 Family history of malignant neoplasm, unspecified; Z85.51 Personal history of malignant neoplasm of bladder; Z86.718 Personal history of other venous thrombosis and embolism; Z87.01 Personal history of pneumonia (recurrent); Z87.891 Personal history of nicotine dependence; Z91.19 Patient's noncompliance with other medical treatment and regimen; Z79.51 Long term (current) use of inhaled steroids
CPT/HCPCS: 36415; 71046; 80048; 80053; 82550; 82553; 83036; 84484; 85025; 85610; 85730; 87070; 87077; 87186; 87205; 87502; 93005; 94640; 94760; 96361; 96374; 96375; 99285

== ENCOUNTER 2017-09-10 12:13 | Inpatient (IN) | payer MEDICARE ==
[2017-09-10] MEDS ORDERED: ASPIRIN 81 MG PO STA (12:20)
[2017-09-10 12:43] LABS: Anisocytosis Slight; Basophils % (A) 0 %; Eosinophils # (A) 0.1 k/uL (0-0.7); Eosinophils % (A) 1 %; HCT 31.8 % (39.0-53.0); HGB 10.5 gm/dL (13.0-17.5); Lymphocytes # (A) 0.7 k/uL (1.0-4.8); Lymphocytes % (A) 7 %; MCH 28.2 pg (25.0-35.0); MCHC 33.1 g/dL (31.0-37.0); MCV 85.1 fL (80.0-100.0); Mean Platelet Volume 7.1; Monocytes # (A) 0.4 k/uL (0-1.0); Monocytes % (A) 4 %; Neutrophils # (A) 7.8 k/uL (1.3-7.7); Neutrophils % (A) 86 %; Platelet Count 420 k/uL (150-450); RBC 3.73 m/uL (4.30-5.90); RDW 16.6 % (11.5-15.5)
--- NOTE | 2017-09-10 12:49 | XR ---
EXAMINATION TYPE: XR chest 1V portable DATE OF EXAM: 09/10/2017 Comparison: 08/16/2017 Clinical History: 82-year-old male with Pain Findings: The cardiomediastinal silhouette, aorta, and pulmonary vasculature are within normal limits. Hyperi nflation with relative lung lucencies and minimal peribronchial cuffing. Stringy atelectasis in the l ower lungs. No consolidation or pleural effusion. Impression: COPD. No acute cardiopulmonary process.
[2017-09-10 12:54] LABS: Albumin 3.4 g/dL (3.5-5.0); Calcium 8.9 mg/dL (8.4-10.2); Magnesium 2.9 mg/dL (1.6-2.3); Total Bilirubin 0.3 mg/dL (0.2-1.3); Total Protein 6.5 g/dL (6.3-8.2)
[2017-09-10 12:58] LABS: INR 0.9 (<1.2); Prothrombin Time 9.5 sec (9.0-12.0)
[2017-09-10 13:10] LABS: Partial Thromboplastin Time 21.8 sec (22.0-30.0); Potassium 6.5 mmol/L (3.5-5.1)
[2017-09-10] MEDS ORDERED: CALCIUM GLUCONATE 1,000 MG in SODIUM CHLORIDE 0.9% 100 ML IVPB ONE (13:11)
[2017-09-10] MEDS ORDERED: SODIUM POLYSTYRENE SULFONATE 15 GM/60 ML BOTTLE PO STA (13:11)
[2017-09-10] MEDS ORDERED: NALOXONE 0.4 MG/ML 1 ML VIAL IV PRN (13:59)
[2017-09-10] MEDS ORDERED: ONDANSETRON 4 MG/2 ML VIAL IVP PRN (13:59)
[2017-09-10] MEDS ORDERED: MORPHINE SULFATE 4 MG/ML SYRINGE IV PRN (13:59)
--- NOTE | 2017-09-10 13:59 | ED ---
General Adult HPI - General Chief complaint: Abdominal Pain Stated complaint: poss stemi Time Seen by Provider: 09/10/17 12:20 Source: patient, EMS Mode of arrival: EMS Limitations: no limitations - History of Present Illness Initial comments: Patient complains of nausea and vomiting, some epigastric discomfort as well as an episode of chest pain yesterday. He did have an episode of chest pain this morning as well. He currently has no chest pain or pressure. He has some shortness of breath, but no lightheadedness or dizziness. He has no neck pain or stiffness. He has taken no medication for the symptoms. He was not doing anything when he began to feel this way. There are no specific exacerbating or relieving factors. He denies any pain or swelling the legs. He denies any recent travel. He has not been around anybody sick recently. He is not eating or drinking anything unusual. - Related Data Home Medications Medication Instructions Recorded Confirmed Albuterol Sulfate [Proair Hfa] 2 puff INHALATION RT-Q6H PRN 07/10/15 09/10/17 Simvastatin [Zocor] 40 mg PO DAILY 07/10/15 09/10/17 Ipratropium-Albuterol Nebulize 3 ml INHALATION RT-QID 07/11/15 09/10/17 [Duoneb 0.5 mg-3 mg/3 ml Soln] Fluticasone/Vilanterol [Breo 1 puff INHALATION RT-DAILY 10/05/16 09/10/17 Ellipta 200-25 Mcg INH] predniSONE 5 mg PO DAILY 10/05/16 09/10/17 Tamsulosin HCl [Flomax] 0.4 mg PO BID 06/06/17 09/10/17 Furosemide [Lasix] 20 mg PO DAILY 08/16/17 09/10/17 Lisinopril-Hctz 20-12.5 mg 1 tab PO DAILY 08/16/17 09/10/17 [Zestoretic 20-12.5] Potassium Chloride ER [K-Dur 20] 20 meq PO DAILY 08/16/17 09/10/17 Allergies Allergy/AdvReac Type Severity Reaction Status Date / Time No Known Allergies Allergy Verified 09/10/17 12:24 Review of Systems ROS Statement: Those systems with pertinent positive or pertinent negative responses have been documented in the HPI. ROS Other: All systems not noted in ROS Statement are negative. Past Medical History Past Medical History: Cancer, Chest Pain / Angina, COPD, Deep Vein Thrombosis ( DVT), Hyperlipidemia, Hypertension, Osteoarthritis (OA), Pneumonia Additional Past Medical History / Comment(s): unstable angina pectoris. COPD, purulent tracheobronchitis, chronic bronchitis. hard of hearing in left ear, OA, back pain, pneumonia 2010, home O2 at 2L/NC.prn, bladder cancer History of Any Multi-Drug Resistant Organisms: None Reported Past Surgical History: Bladder Surgery, Tonsillectomy Additional Past Surgical History / Comment(s): vasectomy Past Anesthesia/Blood Transfusion Reactions: No Reported Reaction Past Psychological History: No Psychological Hx Reported Smoking Status: Former smoker Past Alcohol Use History: None Reported Past Drug Use History: None Reported - Past Family History Father Family Medical History: Cancer Additional Family Medical History / Comment(s): cancer. client reported father had scoliosis. Mother Additional Family Medical History / Comment(s): mother . unknown history General Exam Limitations: no limitations General appearance: alert, in no apparent distress Head exam: Present: atraumatic, normocephalic, normal inspection Eye exam: Present: normal appearance, PERRL, EOMI. Absent: scleral icterus, conjunctival injection, periorbital swelling ENT exam: Present: normal exam, mucous membranes moist Neck exam: Present: normal inspection. Absent: tenderness, meningismus, lymphadenopathy Respiratory exam: Present: normal lung sounds bilaterally. Absent: respiratory distress, wheezes, rales, rhonchi, stridor Cardiovascular Exam: Present: regular rate, normal rhythm, normal heart sounds. Absent: systolic murmur, diastolic murmur, rubs, gallop, clicks GI/Abdominal exam: Present: soft, normal bowel sounds. Absent: distended, tenderness, guarding, rebound, rigid Extremities exam: Present: normal inspection, full ROM, normal capillary refill. Absent: tenderness, pedal edema, joint swelling, calf tenderness Back exam: Present: normal inspection Neurological exam: Present: alert, oriented X3, CN II-XII intact Psychiatric exam: Present: normal affect, normal mood Skin exam: Present: warm, dry, intact, normal color. Absent: rash Course Vital Signs 09/10/17 09/10/17 09/10/17 12:17 12:44 13:38 Temperature 97.6 F Pulse Rate 79 95 93 Respiratory 18 17 17 Rate Blood Pressure 120/57 120/57 O2 Sat by Pulse 94 L 94 L 93 L Oximetry EKG Findings - EKG Comments: EKG Findings:: Twelve-lead EKG interpreted by me as showing ventricular rate 122 bpm, normal SD interval and QRS complexes, no ST elevation or depression, interpreted by me as sinus tachycardia. I compared this to prior EKG there are no acute changes. I obtained a bedside consult by cardiology, they do not believe the patient's EKG represents anything other than sinus tachycardia. Medical Decision Making - Medical Decision Making Patient complains of nausea, not feeling well. BUN/creatinine are acutely elevated. I gave him oral Kayexalate, an IV calcium. Patient will be admitted to the hospital. - Lab Data Result diagrams: 09/10/17 12:20 09/10/17 12:20 Lab Results 09/10/17 09/10/17 09/10/17 Range/Units 12:20 12:20 12:20 WBC 9.0 (3.8-10.6) k/uL RBC 3.73 L (4.30-5.90) m/uL Hgb 10.5 L (13.0-17.5) gm/dL Hct 31.8 L (39.0-53.0) % MCV 85.1 (80.0-100.0) fL MCH 28.2 (25.0-35.0) pg MCHC 33.1 (31.0-37.0) g/dL RDW 16.6 H (11.5-15.5) % Plt Count 420 (150-450) k/uL Neutrophils % 86 % Lymphocytes % 7 % Monocytes % 4 % Eosinophils % 1 % Basophils % 0 % Neutrophils # 7.8 H (1.3-7.7) k/uL Lymphocytes # 0.7 L (1.0-4.8) k/uL Monocytes # 0.4 (0-1.0) k/uL Eosinophils # 0.1 (0-0.7) k/uL Basophils # 0.0 (0-0.2) k/uL Anisocytosis Slight PT (9.0-12.0) sec INR (<1.2) APTT (22.0-30.0) sec Sodium 139 (137-145) mmol/L Potassium 6.5 H* (3.5-5.1) mmol/L Chloride 103 (98-107) mmol/L Carbon Dioxide 26 (22-30) mmol/L Anion Gap 10 mmol/L BUN 94 H* (9-20) mg/dL Creatinine 3.50 H (0.66-1.25) mg/dL Est GFR (CKD-EPI)AfAm 18 (>60 ml/min/1.73 sqM) Est GFR (CKD-EPI)NonAf 15 (>60 ml/min/1.73 sqM) Glucose 85 (74-99) mg/dL Calcium 8.9 (8.4-10.2) mg/dL Magnesium 2.9 H (1.6-2.3) mg/dL Total Bilirubin 0.3 (0.2-1.3) mg/dL AST 21 (17-59) U/L ALT 38 (21-72) U/L Alkaline Phosphatase 82 (38-126) U/L Troponin I (0.000-0.034) ng/mL NT-Pro-B Natriuret Pep 123 pg/mL Total Protein 6.5 (6.3-8.2) g/dL Albumin 3.4 L (3.5-5.0) g/dL 09/10/17 09/10/17 Range/Units 12:20 12:20 WBC (3.8-10.6) k/uL RBC (4.30-5.90) m/uL Hgb (13.0-17.5) gm/dL Hct (39.0-53.0) % MCV (80.0-100.0) fL MCH (25.0-35.0) pg MCHC (31.0-37.0) g/dL RDW (11.5-15.5) % Plt Count (150-450) k/uL Neutrophils % % Lymphocytes % % Monocytes % % Eosinophils % % Basophils % % Neutrophils # (1.3-7.7) k/uL Lymphocytes # (1.0-4.8) k/uL Monocytes # (0-1.0) k/uL Eosinophils # (0-0.7) k/uL Basophils # (0-0.2) k/uL Anisocytosis PT 9.5 (9.0-12.0) sec INR 0.9 (<1.2) APTT 21.8 L (22.0-30.0) sec Sodium (137-145) mmol/L Potassium (3.5-5.1) mmol/L Chloride (98-107) mmol/L Carbon Dioxide (22-30) mmol/L Anion Gap mmol/L BUN (9-20) mg/dL Creatinine (0.66-1.25) mg/dL Est GFR (CKD-EPI)AfAm (>60 ml/min/1.73 sqM) Est GFR (CKD-EPI)NonAf (>60 ml/min/1.73 sqM) Glucose (74-99) mg/dL Calcium (8.4-10.2) mg/dL Magnesium (1.6-2.3) mg/dL Total Bilirubin (0.2-1.3) mg/dL AST (17-59) U/L ALT (21-72) U/L Alkaline Phosphatase (38-126) U/L Troponin I 0.028 (0.000-0.034) ng/mL NT-Pro-B Natriuret Pep pg/mL Total Protein (6.3-8.2) g/dL Albumin (3.5-5.0) g/dL Disposition Clinical Impression: Kidney failure Disposition: ADMITTED IP TO THIS HOSP Condition: Serious Referrals: Lobo Elizabeth MD [Primary Care Provider] - 1-2 days Time of Disposition: 13:59
[2017-09-10] MEDS ORDERED: ALBUTEROL NEBULIZED 2.5 MG/3 ML INHALATION PRN (14:01)
[2017-09-10] MEDS: IPRATROPIUM-ALBUTEROL 3 ML NEB INHALATION SCH ×2 (15:01→20:10)
--- NOTE | 2017-09-10 16:36 | P.HPIM ---
History of Present Illness H&P Date: 09/10/17 Chief Complaint: Generalized weakness. This is a history and physical an 82-year-old white male who is struggling with exacerbation of COPD but states he's been having difficulty with generalized weakness and malaise. Workup in the emergency room showed acute renal injury. The patient is now admitted for appropriate IV hydration. He states from a COPD perspective, he is breathing appropriately. No overt chest pain no loss of consciousness. No numbness or tingling. Visual loss or headache stated. The patient this does not describe any type of voiding difficulty. Review of Systems Constitutional: Denies chills, Denies fever Eyes: denies blurred vision, denies pain Ears, nose, mouth and throat: Denies headache, Denies sore throat Cardiovascular: Denies chest pain, Denies shortness of breath Respiratory: Denies cough Gastrointestinal: Denies abdominal pain, Denies diarrhea, Denies nausea, Denies vomiting Musculoskeletal: Denies myalgias Integumentary: Denies pruritus, Denies rash Neurological: Denies numbness, Denies weakness Past Medical History Past Medical History: Cancer, Chest Pain / Angina, COPD, Deep Vein Thrombosis ( DVT), Hyperlipidemia, Hypertension, Osteoarthritis (OA), Pneumonia, Prostate Disorder Additional Past Medical History / Comment(s): Pt had recent admission to [facility] on 08/18/17 with exacerbation COPD and small nodule R lung to be followed up. Other hx: Bladder cancer with surgery, purulent tracheobronchitis, home O2 2L/NC prn, dvt R leg, DJD, back pain, BPH. History of Any Multi-Drug Resistant Organisms: None Reported Past Surgical History: Bladder Surgery, Tonsillectomy Additional Past Surgical History / Comment(s): Bladder cancer with surgery, vasectomy Past Anesthesia/Blood Transfusion Reactions: No Reported Reaction Smoking Status: Former smoker - Past Family History Father Family Medical History: Cancer Additional Family Medical History / Comment(s): Father had scoliosis. Father of lung cancer Mother History Unknown: Yes Additional Family Medical History / Comment(s): Mother . Unknown history Medications and Allergies Home Medications Medication Instructions Recorded Confirmed Type Albuterol Sulfate [Proair Hfa] 2 puff INHALATION RT-Q6H PRN 07/10/15 09/10/17 History Simvastatin [Zocor] 40 mg PO DAILY 07/10/15 09/10/17 History Ipratropium-Albuterol Nebulize 3 ml INHALATION RT-QID 07/11/15 09/10/17 History [Duoneb 0.5 mg-3 mg/3 ml Soln] Fluticasone/Vilanterol [Breo 1 puff INHALATION RT-DAILY 10/05/16 09/10/17 History Ellipta 200-25 Mcg INH] predniSONE 5 mg PO DAILY 10/05/16 09/10/17 History Tamsulosin HCl [Flomax] 0.4 mg PO BID 06/06/17 09/10/17 History Furosemide [Lasix] 20 mg PO DAILY 08/16/17 09/10/17 History Lisinopril-Hctz 20-12.5 mg 1 tab PO DAILY 08/16/17 09/10/17 History [Zestoretic 20-12.5] Potassium Chloride ER [K-Dur 20] 20 meq PO DAILY 08/16/17 09/10/17 History Allergies Allergy/AdvReac Type Severity Reaction Status Date / Time No Known Allergies Allergy Verified 09/10/17 12:24 Physical Exam Vitals: Vital Signs Temp Pulse Resp BP Pulse Ox 09/10/17 15:20 97 17 119/49 97 09/10/17 15:03 95 09/10/17 15:01 100 18 09/10/17 13:38 93 17 93 L 09/10/17 12:44 95 17 120/57 94 L 09/10/17 12:17 97.6 F 79 18 120/57 94 L Intake and Output 09/10/17 09/10/17 09/10/17 06:59 14:59 22:59 Other: Weight 62.596 kg Patient Weight 09/11/17 06:59 Weight 62.596 kg - Constitutional General appearance: average body habitus - EENT Eyes: no abnormal pupil - Neck Neck: no lymphadenopathy - Respiratory Respiratory: bilateral: CTA - Cardiovascular Rhythm: regular Heart sounds: normal: S1, S2 - Gastrointestinal General gastrointestinal: soft, no tenderness - Integumentary Integumentary: no rash - Psychiatric Psychiatric: A&O x's 3, appropriate affect Results CBC & Chem 7: 09/10/17 12:20 09/10/17 12:20 Labs: Abnormal Lab Results - Last 24 Hours (Table) 09/10/17 09/10/17 09/10/17 Range/Units 12:20 12:20 12:20 RBC 3.73 L (4.30-5.90) m/uL Hgb 10.5 L (13.0-17.5) gm/dL Hct 31.8 L (39.0-53.0) % RDW 16.6 H (11.5-15.5) % Neutrophils # 7.8 H (1.3-7.7) k/uL Lymphocytes # 0.7 L (1.0-4.8) k/uL APTT 21.8 L (22.0-30.0) sec Potassium 6.5 H* (3.5-5.1) mmol/L BUN 94 H* (9-20) mg/dL Creatinine 3.50 H (0.66-1.25) mg/dL Magnesium 2.9 H (1.6-2.3) mg/dL Albumin 3.4 L (3.5-5.0) g/dL Thrombosis Risk Factor Assmnt - Choose All That Apply Any of the Below Risk Factors Present?: Yes Each Factor Represents 1 point: Abnormal pulmonary function (COPD), Serious lung disease incl. pneumonia (< 1month) Other Risk Factors: Yes Each Risk Factor Represents 2 Points: Malignancy Each Risk Factor Represents 3 Points: Age 75 years or older, History of DVT/PE Other congenital or acquired thrombophilia - If yes, enter type in comment: No Thrombosis Risk Factor Assessment Total Risk Factor Score: 10 Thrombosis Risk Factor Assessment Level: High Risk Assessment and Plan (1) Kidney failure Current Visit: Yes Status: Acute Code(s): N19 - UNSPECIFIED KIDNEY FAILURE SNOMED Code(s): 58557849 (2) Acute hyperkalemia Current Visit: No Status: Acute Code(s): E87.5 - HYPERKALEMIA SNOMED Code( s): 3658947 (3) Hyperlipidemia Current Visit: No Status: Acute Code(s): E78.5 - HYPERLIPIDEMIA, UNSPECIFIED SNOMED Code(s): 47075939 (4) Hypertension Current Visit: No Status: Acute Code(s): I10 - ESSENTIAL (PRIMARY) HYPERTENSION SNOMED Code(s): 33838655 (5) Hypoxia Current Visit: No Status: Acute Code(s): R09.02 - HYPOXEMIA SNOMED Code(s) : 511803705 Plan: IV hydration. Treat appropriately for hyperkalemia. Check CMP in a.m. We'll go ahead and consult nephrology if necessary. Otherwise, the patient is a full code at this time. Time with Patient: Greater than 30
[2017-09-10] MEDS ORDERED: SODIUM CHLORIDE 0.9% 1,000 ML in EMPTY BAG 1 BAG IV ONE (19:44)
[2017-09-10] MEDS: FAMOTIDINE 20 MG TAB PO SCH (21:07)
[2017-09-10] MEDS: TAMSULOSIN 0.4 MG CAP.ER.24H PO SCH (21:07)
[2017-09-10] MEDS: SODIUM CHLORIDE 0.9% 1,000 ML IV SCH (21:40)
[2017-09-11 07:15] LABS: Albumin 2.9 g/dL (3.5-5.0); Calcium 8.5 mg/dL (8.4-10.2); Total Bilirubin 0.2 mg/dL (0.2-1.3); Total Protein 5.6 g/dL (6.3-8.2)
[2017-09-11 07:17] LABS: Potassium 6.1 mmol/L (3.5-5.1)
[2017-09-11] MEDS ORDERED: SODIUM POLYSTYRENE SULFONATE 15 GM/60 ML BOTTLE PO STA (07:58)
--- NOTE | 2017-09-11 08:01 | P.PN ---
Subjective Progress Note Date: 09/11/17 Principal diagnosis: Acute renal failure. This is a continue process on 8-year-old white male essentially admitted for acute renal failure. Intermittent hyperkalemia is noted. He was been given Kayexalate and now his potassium is 6.1. We will go ahead and give him another dose of Kayexalate but DC his lisinopril/hydrochlorothiazide at this point. The patient otherwise states no new breathing issues. He has an underlying history of severe COPD. Objective - Vital Signs Vital signs: Vital Signs Temp 97.2 F L 09/11/17 03:15 Pulse 91 09/11/17 03:15 Resp 20 09/11/17 03:15 BP 94/46 09/11/17 03:15 Pulse Ox 91 L 09/11/17 03:15 Intake & Output 09/10/17 09/11/17 09/11/17 18:59 06:59 18:59 Intake Total 975 Output Total 350 Balance 625 Weight 62.596 kg 58.3 kg Intake: Intake, IV Titration 675 Amount Sodium Chloride 0.9% 1, 525 000 ml @ 75 mls/hr IV . [id number] FLOR[facility] Rx#:[id number] Sodium Chloride 0.9% 1, 150 000 ml In Empty Bag 1 bag @ 150 ML/KG/HR 9389.4 mls/hr IV .Q7M ONE Rx#: [id number] Oral 300 Output: Urine 350 Other: Voiding Method Urinal Urinal - Constitutional General appearance: Present: thin - EENT Eyes: Absent: abnormal pupil ENT: Present: hard of hearing - Respiratory Respiratory: bilateral: rhonchi - Cardiovascular Rhythm: regular Heart sounds: normal: S1, S2 Abnormal Heart Sounds: Absent: S3 Gallop - Gastrointestinal General gastrointestinal: Present: soft. Absent: tenderness - Musculoskeletal Musculoskeletal: Present: generalized weakness - Psychiatric Psychiatric: Present: A&O x's 3 - Labs CBC & Chem 7: 09/10/17 12:20 09/11/17 06:16 Labs: Abnormal Lab Results - Last 24 Hours (Table) 09/10/17 09/10/17 09/10/17 Range/Units 12:20 12:20 12:20 RBC 3.73 L (4.30-5.90) m/uL Hgb 10.5 L (13.0-17.5) gm/dL Hct 31.8 L (39.0-53.0) % RDW 16.6 H (11.5-15.5) % Neutrophils # 7.8 H (1.3-7.7) k/uL Lymphocytes # 0.7 L (1.0-4.8) k/uL APTT 21.8 L (22.0-30.0) sec Potassium 6.5 H* (3.5-5.1) mmol/L BUN 94 H* (9-20) mg/dL Creatinine 3.50 H (0.66-1.25) mg/dL Magnesium 2.9 H (1.6-2.3) mg/dL Total Protein (6.3-8.2) g/dL Albumin 3.4 L (3.5-5.0) g/dL 09/10/17 09/11/17 Range/Units 20:01 06:16 RBC (4.30-5.90) m/uL Hgb (13.0-17.5) gm/dL Hct (39.0-53.0) % RDW (11.5-15.5) % Neutrophils # (1.3-7.7) k/uL Lymphocytes # (1.0-4.8) k/uL APTT (22.0-30.0) sec Potassium 6.1 H 6.1 H (3.5-5.1) mmol/L BUN 86 H* (9-20) mg/dL Creatinine 3.04 H (0.66-1.25) mg/dL Magnesium (1.6-2.3) mg/dL Total Protein 5.6 L (6.3-8.2) g/dL Albumin 2.9 L (3.5-5.0) g/dL Assessment and Plan (1) Kidney failure Current Visit: Yes Status: Acute Code(s): N19 - UNSPECIFIED KIDNEY FAILURE SNOMED Code(s): 45343861 (2) Acute hyperkalemia Current Visit: No Status: Acute Code(s): E87.5 - HYPERKALEMIA SNOMED Code( s): 0749603 (3) Hyperlipidemia Current Visit: No Status: Acute Code(s): E78.5 - HYPERLIPIDEMIA, UNSPECIFIED SNOMED Code(s): 52625002 (4) Hypertension Current Visit: No Status: Acute Code(s): I10 - ESSENTIAL (PRIMARY) HYPERTENSION SNOMED Code(s): 50027910 (5) Hypoxia Current Visit: No Status: Acute Code(s): R09.02 - HYPOXEMIA SNOMED Code(s) : 351830509 Plan: We'll go ahead and await renal evaluation by nephrology. We'll mild is also consulted. Otherwise, check CMP in a.m. Kayexalate given and MICHELE inhibitor with hydrochlorothiazide is continued at this time. Watch blood pressure closely. Prognosis is guarded secondary to his multiple comorbidities.
[2017-09-11] MEDS: SYMBICORT 160-4.5 MCG INHALER INHALATION SCH ×2 (08:43→20:46)
[2017-09-11] MEDS: IPRATROPIUM-ALBUTEROL 3 ML NEB INHALATION SCH ×4 (08:43→20:46)
[2017-09-11] MEDS ORDERED: LISINOPRIL-HCTZ 20-12.5 MG 1 EACH TAB PO SCH (09:00)
[2017-09-11] MEDS ORDERED: FUROSEMIDE 20 MG TAB PO SCH (09:00)
[2017-09-11] MEDS: TAMSULOSIN 0.4 MG CAP.ER.24H PO SCH ×2 (09:08→20:10)
[2017-09-11] MEDS: ATORVASTATIN 20 MG TAB PO SCH (09:08)
[2017-09-11] MEDS: FAMOTIDINE 20 MG TAB PO SCH (09:09)
[2017-09-11 15:11] LABS: Amylase 145 U/L (30-110); Lipase 634 U/L (23-300)
--- NOTE | 2017-09-11 15:30 | CONS ---
CONSULTATION REASON FOR CONSULTATION: Reason for consult, renal failure. DATE OF CONSULTATION: 09/11/2017 HISTORY OF PRESENT STAY: Patient is an 82-year-old male who was admitted to the hospital yesterday with complaints of increased weakness and shortness of breath. He was noted to have a creatinine of 3.5 mg/dL and a potassium of 6.5. REVIEW OF LABS: Shows previous creatinine 1.0 on 08/22/2017. His potassium is now down to 6.1 and creatinine is decreased to 3.0. Patient is maintained on IV fluids. He was on MICHELE inhibitors, which are now discontinued. Patient did receive Kayexalate. His blood pressure has been on the lower side with systolic in the 80s on initial admission. PAST MEDICAL HISTORY: Hypertension, BPH, COPD, history of DVT, hyperlipidemia, osteoarthritis, history of bladder cancer, status post surgery. PAST SURGICAL HISTORY: Tonsillectomy, bladder surgery, vasectomy. SOCIAL HISTORY: Positive for patient being a former smoker. No history of drug abuse or alcohol abuse. MEDICATIONS: At home prior to admission included Zocor, Flomax, Lasix, potassium, Zestoretic, albuterol. ALLERGIES: None. REVIEW OF SYSTEMS: As per HPI. Other systems negative. PHYSICAL EXAMINATION: Patient is comfortable, awake. He is not in any acute distress. Blood pressure is 109/54, heart rate 90 per minute. He is afebrile. Examination of the heart, S1, S2. Examination of the lungs, decreased breath sounds at the bases. Abdomen is soft, nontender. Examination of lower extremities shows no significant edema. [employer] exam is grossly intact. Patient is moving all four extremities. LABS: Show sodium 144, potassium 6.1, BUN 86, serum creatinine 3.0. UA is not available. Chest x-ray shows no acute pulmonary findings. ASSESSMENT: 1. Acute kidney injury, appears to be prerenal associated with hypotension,. hypoperfusion and some intravascular volume depletion. Continue with IV fluids. Agree with holding off on the MICHELE inhibitors and diuretics for now. There are no nephrotoxic agents on board. Continue to monitor urine output. Renal function is improving. 2. Hyperkalemia associated with acute kidney injury and use of MICHELE inhibitors, status post Kayexalate, currently improved. Continue with the low-dose Lasix, which will help with the hyperkalemia. We will repeat another set of labs tomorrow morning. Patient should be maintained on low-potassium diet. 3. Chronic obstructive pulmonary disease, currently stable. 4. Anemia, rule out iron-deficiency. 5. Dyslipidemia. 6. History of bladder cancer, status post surgery. 7. Benign prostatic hypertrophy, maintained on Flomax. PLAN: Continue IV fluids. Hold off on potassium and MICHELE inhibitors and diuretics. Continue with the low-dose Lasix. Maintain patient on low-potassium diet. Check ultrasound of the kidneys and repeat labs in a.m. Thank you for this consultation. Will continue to follow the patient with you during his hospitalization. MMODL / IJN: [id number] /
[2017-09-11 15:51] LABS: Appearance,Urine Clear (Clear); Bilirubin,Urine Negative (Negative); Blood,Urine Negative (Negative); Color,Urine Light Yellow; Glucose,Urine (UA) Negative (Negative); Ketones,Urine Negative (Negative); Leukocyte Esterase,Urine Negative (Negative); Nitrite,Urine Negative (Negative); Protein,Urine Negative (Negative); Urobilinogen,Urine <2.0 mg/dL (<2.0)
--- NOTE | 2017-09-11 15:51 | US ---
EXAMINATION TYPE: US kidneys/renal and bladder DATE OF EXAM: 09/11/2017 COMPARISON: NONE CLINICAL HISTORY: RF. Abnormal labs EXAM MEASUREMENTS: Right Kidney: 9.8 x 4.2 x 3.9 cm Left Kidney: 9.7 x 4.2 x 4.9 cm Limited exam due to patient unable to turn on side Right Kidney: No hydronephrosis or masses seen Left Kidney: No hydronephrosis or masses seen Bladder: wnl, distended Bilateral Jets not seen IMPRESSION: 1. Unremarkable renal ultrasound. 2. Some limitation due to patient inability to cooperate with the exam
--- NOTE | 2017-09-11 15:56 | US ---
EXAMINATION TYPE: US venous doppler duplex LE BI DATE OF EXAM: 09/11/2017 2:21 PM COMPARISON: CLINICAL HISTORY: rule out DVT. Hx of right leg DVT in popliteal vein-- November 2016. Not on blood thinn ers. No surgeries. No swelling. No pain. SIDE PERFORMED: Bilateral TECHNIQUE: The lower extremity deep venous system is examined utilizing real time linear array sonog renetta with graded compression, doppler sonography and color-flow sonography. VESSELS IMAGED: External Iliac Vein (EIV) Common Femoral Vein Deep Femoral Vein Greater Saphenous Vein * Femoral Vein Popliteal Vein Small Saphenous Vein * Proximal Calf Veins (* superficial vessels) Right Leg: Negative for DVT Left Leg: Negative for DVT IMPRESSION: 1. Lower extremities negative for deep venous thrombosis by ultrasound.
--- NOTE | 2017-09-11 16:46 | P.CNPUL ---
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 The patient has been having multiple hospitalizations for pulmonary complications. During a hospitalization back in July the patient was found to have stenotrophomonas in the bronchioloalveolar lavage that was identified at a time of bronchoscopy. The patient was treated with Bactrim back then. During the course of treatment the patient developed an acute kidney injury that was drug-induced and ultimately he was treated and recovered. Nevertheless he continued to be short of breath and he had a very limited overall performance and functional status due to shortness of breath. He has constant cough and congestion his chest. He also has history of DVT of the lower extremity. He was treated with anticoagulation for quite some time and he was subsequently taken off anticoagulation due to hematuria the patient is also known to have bladder cancer. He does not recall any status where he had pulmonary embolism. The patient came into the hospital because of increased shortness of breath, pain across the left chest which was somewhat pleuritic in nature. No hemoptysis. He has congested and he has constant cough and bronchospasm wheezing related to his advanced COPD. No calf pain or tenderness pain no swelling lower extremities. He is having some lower abdominal pain in addition. He has stooled. No evidence of any GI bleeding. No nausea or vomiting. No diarrhea. No dysuria exam [place]. No hematuria. Urinalysis has not been done. The patient's oral intake has been overall low and the patient was found to have an acute kidney injury on top of his chronic renal failure. His creatinine is up to 3.5 at the time of admission with a BUN of 94. Potassium level was also at 6.1. The patient was treated for his hyperkalemia and repeat level is at 6.1. Note that the patient was given Kayexalate 45 g yesterday and 30 g today. The patient is also on IV fluids at 150 mL of normal saline. No leukocytosis. Review of Systems All systems: negative Constitutional: Denies chills, Denies fever Eyes: denies blurred vision, denies pain Ears, nose, mouth and throat: Denies headache, Denies sore throat Cardiovascular: Nonspecific pain across the chest and the patient's pain is somewhat pleuritic in nature. He has chronic dyspnea. No palpitations per no swelling in lower extremities. no tenderness. Respiratory: Denies cough and chronic dyspnea and cough and wheezing Gastrointestinal: Patient is having abdominal pain, Denies diarrhea, Denies nausea, Denies vomiting Musculoskeletal: Denies myalgias Integumentary: Denies pruritus, Denies rash Neurological: Denies numbness, Denies weakness Psychiatric: Denies anxiety, Denies depression Endocrine: Denies fatigue, Denies weight change Past Medical History Past Medical History: Cancer, Chest Pain / Angina, COPD, Deep Vein Thrombosis ( DVT), Hyperlipidemia, Hypertension, Osteoarthritis (OA), Pneumonia, Prostate Disorder Additional Past Medical History / Comment(s): .Severe COPD with an FEV1 of 33% of predicted, chronic hypoxic respiratory failure, recurrent hospitalization for COPD exacerbation, stenotrophomonas tracheal bronchitis, bladder cancer with previous surgery, degenerative arthritis, right lower extremities DVT, BPH , chronic back pain, hypertension, hyperlipidemia History of Any Multi-Drug Resistant Organisms: None Reported Past Surgical History: Bladder Surgery, Tonsillectomy Additional Past Surgical History / Comment(s): Bladder cancer with surgery, vasectomy Past Anesthesia/Blood Transfusion Reactions: No Reported Reaction Smoking Status: Former smoker - Past Family History Father Family Medical History: Cancer Additional Family Medical History / Comment(s): Father had scoliosis. Father of lung cancer Mother History Unknown: Yes Additional Family Medical History / Comment(s): Mother . Unknown history Medications and Allergies Home Medications Medication Instructions Recorded Confirmed Type Albuterol Sulfate [Proair Hfa] 2 puff INHALATION RT-Q6H PRN 07/10/15 09/10/17 History Simvastatin [Zocor] 40 mg PO DAILY 07/10/15 09/10/17 History Ipratropium-Albuterol Nebulize 3 ml INHALATION RT-QID 07/11/15 09/10/17 History [Duoneb 0.5 mg-3 mg/3 ml Soln] Fluticasone/Vilanterol [Breo 1 puff INHALATION RT-DAILY 10/05/16 09/10/17 History Ellipta 200-25 Mcg INH] predniSONE 5 mg PO DAILY 10/05/16 09/10/17 History Tamsulosin HCl [Flomax] 0.4 mg PO BID 06/06/17 09/10/17 History Furosemide [Lasix] 20 mg PO DAILY 08/16/17 09/10/17 History Lisinopril-Hctz 20-12.5 mg 1 tab PO DAILY 08/16/17 09/10/17 History [Zestoretic 20-12.5] Potassium Chloride ER [K-Dur 20] 20 meq PO DAILY 08/16/17 09/10/17 History Allergies Allergy/AdvReac Type Severity Reaction Status Date / Time No Known Allergies Allergy Verified 09/10/17 12:24 Physical Exam Vitals: Vital Signs Temp Pulse Pulse Resp BP BP Pulse Ox 09/11/17 16:00 96.8 F L 113 H 20 103/74 93 L 09/11/17 12:16 90 09/11/17 12:12 92 09/11/17 12:02 90 09/11/17 11:51 96.9 F L 91 20 109/54 95 09/11/17 08:53 94 09/11/17 08:43 92 09/11/17 08:00 96.8 F L 103 H 20 96/50 99 09/11/17 03:15 97.2 F L 91 20 94/46 91 L 09/10/17 23:25 96.9 F L 96 20 109/47 91 L 09/10/17 21:00 96.7 F L 91 20 105/50 96 09/10/17 20:21 96 18 09/10/17 20:10 94 18 09/10/17 17:30 97.3 F L 99 95 24 112/52 88/51 95 09/10/17 16:38 89 17 119/55 96 Intake and Output 09/11/17 09/11/17 09/11/17 06:59 14:59 22:59 Intake Total 975 480 Output Total 750 275 Balance 975 -270 -275 Intake: Intake, IV Titration 675 Amount Sodium Chloride 0.9% 1, 525 000 ml @ 75 mls/hr IV . [id number] [facility] Rx#:[id number] Sodium Chloride 0.9% 1, 150 000 ml In Empty Bag 1 bag @ 150 ML/KG/HR 9389.4 mls/hr IV .Q7M ONE Rx#: [id number] Oral 300 480 Output: Urine 750 275 Other: Voiding Method Urinal Weight 58.3 kg 58.3 kg Patient Weight 09/12/17 06:59 Weight 58.3 kg GENERAL EXAM: Alert, pleasant, thin, 82-year-old white male, mildly short of breath at rest, but fairly comfortable HEAD: Normocephalic/atraumatic. EYES: Normal reaction of pupils, equal size. Conjunctiva pink, sclera white. NOSE: Clear with pink turbinates. THROAT: No erythema or exudates. NECK: No masses, no JVD, no thyroid enlargement, no adenopathy. CHEST: No chest wall deformity. Symmetrical expansion. LUNGS: Equal air entry with scattered rhonchi, and wheezing throughout the lung wood. CVS: Regular rate and rhythm, normal S1 and S2, no gallops, no murmurs, no rubs ABDOMEN: Soft, nontender. No hepatosplenomegaly, normal bowel sounds, no guarding or rigidity. EXTREMITIES: No clubbing, no edema, no cyanosis, 2+ pulses and upper and lower extremities. MUSCULOSKELETAL: Muscle strength and tone normal. SPINE: No scoliosis or deformity SKIN: No rashes CENTRAL NERVOUS SYSTEM: Alert and oriented -3. No focal deficits, tone is normal in all 4 extremities. PSYCHIATRIC: Alert and oriented -3. Appropriate affect. Intact judgment and insight. Results - Laboratory Findings CBC and BMP: 09/10/17 12:20 09/11/17 06:16 PT/INR, D-dimer PT 9.5 sec (9.0-12.0) 09/10/17 12:20 INR 0.9 (<1.2) 09/10/17 12:20 D-Dimer 12.19 mg/L FEU (<0.60) H 09/11/17 14:46 Abnormal lab findings: Abnormal Labs 09/10/17 09/10/17 09/10/17 12:20 12:20 12:20 RBC 3.73 L Hgb 10.5 L Hct 31.8 L RDW 16.6 H Neutrophils # 7.8 H Lymphocytes # 0.7 L APTT 21.8 L D-Dimer Potassium 6.5 H* BUN 94 H* Creatinine 3.50 H Magnesium 2.9 H Total Protein Albumin 3.4 L Amylase Lipase 09/10/17 09/11/17 09/11/17 20:01 06:16 14:46 RBC Hgb Hct RDW Neutrophils # Lymphocytes # APTT D-Dimer 12.19 H Potassium 6.1 H 6.1 H BUN 86 H* Creatinine 3.04 H Magnesium Total Protein 5.6 L Albumin 2.9 L Amylase Lipase 09/11/17 14:46 RBC Hgb Hct RDW Neutrophils # Lymphocytes # APTT D-Dimer Potassium BUN Creatinine Magnesium Total Protein Albumin Amylase 145 H Lipase 634 H Assessment and Plan Assessment: Assessment - Acute COPD exacerbation completed by tracheobronchitis, and the patient is a clear chest x-ray and there is no evidence of any acute pulmonary infiltration. Atelectatic change in lung bases are seen. - Advanced steroid dependent COPD, with a baseline FEV1 of 33% of predicted - Acute kidney injury, likely secondary to intravascular volume depletion and dehydration and the creatinine is up to 3.5 - Hyperkalemia, possibly related to acute kidney injury . Patient is also on potassium supplements and lisinopril which is probably contributing to the acute kidney injury. - History of nicotine dependence - hyperlipidemia - Hypertension - Neoplasm of bladder - History of deep venous thrombosis, history of currently on no anticoagulants -Stenotrophomonas l tracheobronchitis treated in 2018 -Abdominal pain, under investigation Plan Will check a baseline d-dimer. We will check the Doppler of the lower extremity. We'll hold off anticoagulation for now knowing that my overall suspicion for PE is low. However I would like to obtain a CT angios the chest once the patient's creatinine is normalized with fluid resuscitation. We'll check amylase. We'll check lipase. We'll check ultrasound abdomen. Treatment of acute COPD exacerbation with a routine bronchodilators and steroids. We'll continue to follow.
[2017-09-11] MEDS: methylPREDNISolone SOD SUCCI 40 MG/ML 1 ML VIAL IV SCH ×2 (17:22→23:46)
[2017-09-11] MEDS ORDERED: MORPHINE ORAL SOLN 10 MG/5 ML CUP PO PRN (17:22)
[2017-09-11] MEDS: SODIUM CHLORIDE 0.9% 1,000 ML IV SCH ×2 (20:10→23:52)
[2017-09-11 21:28] LABS: Glucose,Whole Blood 172 mg/dL (75-99)
[2017-09-11] MEDS: INSULIN ASPART 100 UNIT/ML 1 ML 10 ML VIAL SQ SCH (21:31)
[2017-09-12] MEDS: methylPREDNISolone SOD SUCCI 40 MG/ML 1 ML VIAL IV SCH ×3 (05:21→18:07)
[2017-09-12 06:04] LABS: Glucose,Whole Blood 165 mg/dL (75-99)
[2017-09-12] MEDS: INSULIN ASPART 100 UNIT/ML 1 ML 10 ML VIAL SQ SCH ×4 (06:18→21:24)
[2017-09-12 06:35] LABS: Albumin 2.8 g/dL (3.5-5.0); Calcium 8.1 mg/dL (8.4-10.2); Total Bilirubin 0.3 mg/dL (0.2-1.3); Total Protein 5.6 g/dL (6.3-8.2)
--- NOTE | 2017-09-12 07:21 | P.PN ---
Subjective Principal diagnosis: Continuing care At this is a continue pressure 82-year-old white male essentially admitted for acute renal failure. Elevation in amylase lipase is noted. Poor appetite is noted. Appreciate consultants input. Nephrology and pulmonary have been consult secondary to his underlying history of COPD. The patient has presbycusis otherwise noted. Objective - Vital Signs Vital signs: Vital Signs Temp 97.1 F L 09/12/17 03:30 Pulse 92 09/12/17 03:30 Resp 18 09/12/17 03:30 BP 123/58 09/12/17 03:30 Pulse Ox 96 09/12/17 03:30 Intake & Output 09/11/17 09/12/17 09/12/17 18:59 06:59 18:59 Intake Total 720 525 Output Total 1300 Balance -580 525 Weight 58.3 kg 59.8 kg Intake: Intake, IV Titration 525 Amount Sodium Chloride 0.9% 1, 525 000 ml @ 75 mls/hr IV . [id number] [facility] Rx#:[id number] Oral 720 Output: Urine 1300 Other: Voiding Method Urinal # Voids 1 - Constitutional General appearance: Present: thin - EENT Eyes: Absent: abnormal pupil - Respiratory Respiratory: bilateral: wheezing - Cardiovascular Rhythm: regular Heart sounds: normal: S1, S2 Abnormal Heart Sounds: Absent: S3 Gallop - Gastrointestinal General gastrointestinal: Present: soft. Absent: tenderness - Neurologic Neurologic: Present: CNII-XII intact - Psychiatric Psychiatric: Present: A&O x's 3 - Labs CBC & Chem 7: 09/10/17 12:20 09/12/17 05:56 Labs: Abnormal Lab Results - Last 24 Hours (Table) 09/11/17 09/11/17 09/11/17 Range/Units 06:16 14:46 14:46 D-Dimer 12.19 H (<0.60) mg/L FEU Potassium 6.1 H (3.5-5.1) mmol/L Chloride (98-107) mmol/L BUN 86 H* (9-20) mg/dL Creatinine 3.04 H (0.66-1.25) mg/dL Glucose (74-99) mg/dL POC Glucose (mg/dL) (75-99) mg/dL Calcium (8.4-10.2) mg/dL Total Protein 5.6 L (6.3-8.2) g/dL Albumin 2.9 L (3.5-5.0) g/dL Amylase 145 H (30-110) U/L Lipase 634 H (23-300) U/L 09/11/17 09/12/17 09/12/17 Range/Units 21:12 05:54 05:56 D-Dimer (<0.60) mg/L FEU Potassium (3.5-5.1) mmol/L Chloride 110 H (98-107) mmol/L BUN 66 H (9-20) mg/dL Creatinine 1.44 H (0.66-1.25) mg/dL Glucose 147 H (74-99) mg/dL POC Glucose (mg/dL) 172 H 165 H (75-99) mg/dL Calcium 8.1 L (8.4-10.2) mg/dL Total Protein 5.6 L (6.3-8.2) g/dL Albumin 2.8 L (3.5-5.0) g/dL Amylase (30-110) U/L Lipase (23-300) U/L Assessment and Plan (1) Kidney failure Current Visit: Yes Status: Acute Code(s): N19 - UNSPECIFIED KIDNEY FAILURE SNOMED Code(s): 93980275 (2) Acute hyperkalemia Current Visit: No Status: Acute Code(s): E87.5 - HYPERKALEMIA SNOMED Code( s): 0396982 (3) Hyperlipidemia Current Visit: No Status: Acute Code(s): E78.5 - HYPERLIPIDEMIA, UNSPECIFIED SNOMED Code(s): 67672709 (4) Hypertension Current Visit: No Status: Acute Code(s): I10 - ESSENTIAL (PRIMARY) HYPERTENSION SNOMED Code(s): 23633313 (5) Hypoxia Current Visit: No Status: Acute Code(s): R09.02 - HYPOXEMIA SNOMED Code(s) : 430084918 Plan: We'll transfer to general medical floor. The patient seems to be stabilizing today. Continue breathing treatments and dietary modifications to increase weight Check CBC and CMP and amylase and lipase in the a.m. Anticipate discharge in the next [address] Vuong's group will be covering starting tomorrow. Time with Patient: Less than 30
[2017-09-12] MEDS: FAMOTIDINE 20 MG TAB PO SCH (08:01)
[2017-09-12] MEDS: TAMSULOSIN 0.4 MG CAP.ER.24H PO SCH ×2 (08:01→21:58)
[2017-09-12] MEDS: ATORVASTATIN 20 MG TAB PO SCH (08:01)
[2017-09-12] MEDS: IPRATROPIUM-ALBUTEROL 3 ML NEB INHALATION SCH ×4 (08:10→19:18)
[2017-09-12] MEDS: SYMBICORT 160-4.5 MCG INHALER INHALATION SCH ×2 (08:10→19:18)
[2017-09-12] MEDS: SODIUM CHLORIDE 0.9% 1,000 ML IV SCH (11:47)
[2017-09-12 12:37] LABS: Glucose,Whole Blood 153 mg/dL (75-99)
--- NOTE | 2017-09-12 15:07 | P.PN ---
Subjective Progress Note Date: 09/12/17 82-year-old male patient with advanced oxygen-dependent COPD with chronic hypoxic and steroid dependent respiratory failure and the patient has an FEV1 of 33% of predicted. The patient has been having multiple hospitalizations for pulmonary complications. During a hospitalization back in July the patient was found to have stenotrophomonas in the bronchioloalveolar lavage that was identified at a time of bronchoscopy. The patient was treated with Bactrim back then. During the course of treatment the patient developed an acute kidney injury that was drug-induced and ultimately he was treated and recovered. Nevertheless he continued to be short of breath and he had a very limited overall performance and functional status due to shortness of breath. He has constant cough and congestion his chest. He also has history of DVT of the lower extremity. He was treated with anticoagulation for quite some time and he was subsequently taken off anticoagulation due to hematuria the patient is also known to have bladder cancer. He does not recall any status where he had pulmonary embolism. The patient came into the hospital because of increased shortness of breath, pain across the left chest which was somewhat pleuritic in nature. No hemoptysis. He has congested and he has constant cough and bronchospasm wheezing related to his advanced COPD. No calf pain or tenderness pain no swelling lower extremities. He is having some lower abdominal pain in addition. He has stooled. No evidence of any GI bleeding. No nausea or vomiting. No diarrhea. No dysuria exam [place]. No hematuria. Urinalysis has not been done. The patient's oral intake has been overall low and the patient was found to have an acute kidney injury on top of his chronic renal failure. His creatinine is up to 3.5 at the time of admission with a BUN of 94. Potassium level was also at 6.1. The patient was treated for his hyperkalemia and repeat level is at 6.1. Note that the patient was given Kayexalate 45 g yesterday and 30 g today. The patient is also on IV fluids at 150 mL of normal saline. No leukocytosis. On 09/12/2088 seeing this patient for a follow-up. The patient was seen yesterday in consultation. He has advanced and and stage COPD. The patient also has had multiple exacerbation of COPD and previous stenotrophomonas infection of the lung. The patient is currently being treated for an acute kidney injury as the patient presented with acute kidney failure secondary to dehydration. Renal function is improving as the patient is being hydrated with IV fluids. Meanwhile, he was having some gastrointestinal complaints and the lipase level was slightly elevated and ultrasound the abdomen was done that came back nonspecific and there was no evidence of any pancreatitis. Although this is suspected based on the elevated lipase level. Also, the patient had a Doppler of the lower extremity that showed no evidence of any DVT. We have not committed to long-term anticoagulation as long as the patient has no Dopplers and clinically is doing better on his less short of breath and the pleurisy has subsided on today's evaluation. Urinalysis came back negative. He is afebrile. He is extremely debilitated secondary to COPD. Pulse ox is around 97 % on 2 L of oxygen nasal cannula. Slightly tachycardic. Objective - Vital Signs Vital signs: Vital Signs Temp 97.0 F L 09/12/17 14:59 Pulse 99 09/12/17 14:59 Resp 16 09/12/17 14:59 BP 126/73 09/12/17 14:59 Pulse Ox 97 09/12/17 14:59 Intake & Output 09/11/17 09/12/17 09/12/17 18:59 06:59 18:59 Intake Total 720 525 840 Output Total 1300 400 Balance -580 525 440 Weight 58.3 kg 59.8 kg Intake: IV 600 Sodium Chloride 0.9% 1, 600 000 ml @ 75 mls/hr IV . [id number] [facility] Rx#:[id number] Intake, IV Titration 525 Amount Sodium Chloride 0.9% 1, 525 000 ml @ 75 mls/hr IV . [id number] [facility] Rx#:[id number] Oral 720 240 Output: Urine 1300 400 Other: Voiding Method Urinal Urinal # Voids 1 1 - Exam GENERAL EXAM: Alert, pleasant, thin, 82-year-old white male, mildly short of breath at rest, but fairly comfortable HEAD: Normocephalic/atraumatic. EYES: Normal reaction of pupils, equal size. Conjunctiva pink, sclera white. NOSE: Clear with pink turbinates. THROAT: No erythema or exudates. NECK: No masses, no JVD, no thyroid enlargement, no adenopathy. CHEST: No chest wall deformity. Symmetrical expansion. LUNGS: Equal air entry with scattered rhonchi, and wheezing throughout the lung wood. CVS: Regular rate and rhythm, normal S1 and S2, no gallops, no murmurs, no rubs ABDOMEN: Soft, nontender. No hepatosplenomegaly, normal bowel sounds, no guarding or rigidity. EXTREMITIES: No clubbing, no edema, no cyanosis, 2+ pulses and upper and lower extremities. MUSCULOSKELETAL: Muscle strength and tone normal. SPINE: No scoliosis or deformity SKIN: No rashes CENTRAL NERVOUS SYSTEM: Alert and oriented -3. No focal deficits, tone is normal in all 4 extremities. PSYCHIATRIC: Alert and oriented -3. Appropriate affect. Intact judgment and insight. - Labs CBC & Chem 7: 09/10/17 12:20 09/12/17 05:56 Labs: Abnormal Lab Results - Last 24 Hours (Table) 09/11/17 09/11/17 09/11/17 Range/Units 14:46 14:46 21:12 D-Dimer 12.19 H (<0.60) mg/L FEU Chloride (98-107) mmol/L BUN (9-20) mg/dL Creatinine (0.66-1.25) mg/dL Glucose (74-99) mg/dL POC Glucose (mg/dL) 172 H (75-99) mg/dL Calcium (8.4-10.2) mg/dL Total Protein (6.3-8.2) g/dL Albumin (3.5-5.0) g/dL Amylase 145 H (30-110) U/L Lipase 634 H (23-300) U/L 09/12/17 09/12/17 09/12/17 Range/Units 05:54 05:56 12:34 D-Dimer (<0.60) mg/L FEU Chloride 110 H (98-107) mmol/L BUN 66 H (9-20) mg/dL Creatinine 1.44 H (0.66-1.25) mg/dL Glucose 147 H (74-99) mg/dL POC Glucose (mg/dL) 165 H 153 H (75-99) mg/dL Calcium 8.1 L (8.4-10.2) mg/dL Total Protein 5.6 L (6.3-8.2) g/dL Albumin 2.8 L (3.5-5.0) g/dL Amylase (30-110) U/L Lipase (23-300) U/L Assessment and Plan Plan: Assessment - Acute COPD exacerbation completed by tracheobronchitis, and the patient is a clear chest x-ray and there is no evidence of any acute pulmonary infiltration. Atelectatic change in lung bases are seen. Clinically the patient is improving and the patient is less short of breath compared to yesterday. Pleurisy is completely subsided on today's evaluation. Doppler of the lower extremities negative. - Advanced steroid dependent COPD, with a baseline FEV1 of 33% of predicted - Acute kidney injury, likely secondary to intravascular volume depletion and dehydration and the creatinine is up to 3.5, and the patient was resuscitated IV fluids and there has been improvement in the patient's Renal function and creatinine is down to 1.6 - Hyperkalemia, possibly related to acute kidney injury . Patient is also on potassium supplements and lisinopril which is probably contributing to the acute kidney injury. Patient's potassium level improved since down to 5.0. - History of nicotine dependence - hyperlipidemia - Hypertension - Neoplasm of bladder - History of deep venous thrombosis, history of currently on no anticoagulants -Stenotrophomonas l tracheobronchitis treated in 2018 -Abdominal pain, under investigation. Patient may have an underlying mild component of pancreatitis. THE ABDOMEN WAS NEGATIVE PLAN CONTINUE IV FLUIDS. MONITOR RENAL FUNCTION. CONTINUE BRONCHODILATORS AND STEROIDS. TRY TO COLLECT A SPUTUM SAMPLE IF POSSIBLE. ADVANCE DIET TOLERATED. WE'LL CONTINUE TO FOLLOW.
[2017-09-12 17:29] LABS: Glucose,Whole Blood 198 mg/dL (75-99)
--- NOTE | 2017-09-12 17:50 | PN ---
PROGRESS NOTE Patient is seen for followup for acute kidney injury. His renal function has been improving. Serum creatinine is down from 3.5 to 1.4 mg/dL. Currently, patient is maintained on IV fluids at 75 mL an hour. He has been voiding well. EXAMINATION: Blood pressure is 126/73, heart rate 99 per minute. He is afebrile. Examination of the heart: S1, S2. Examination lungs: Bilateral breath sounds are heard. Abdomen is soft, nontender. Examination of lower extremities shows no edema. HIDES SOAKER exam is grossly intact. LAB: Show sodium 145, potassium 5.0, BUN is 16, creatinine 1.4. ASSESSMENT: 1. Acute kidney injury, prerenal, currently improving. The patient is maintained on IV fluids which we will continue for now. 2. Chronic obstructive pulmonary disease with multiple exacerbations with recent acute exacerbation associated with tracheobronchitis. 3. Hyperkalemia associated with acute kidney injury is currently improved. Patient has received Kayexalate. PLAN: Continue IV fluids. Continue with the Flomax. Repeat labs in a.m. MMODL / IJN: [id number] /
[2017-09-12] MEDS ORDERED: DOCUSATE 100 MG CAP PO PRN (20:36)
[2017-09-12] MEDS: MAGNESIUM HYDROXIDE 2,400 MG/10 ML CUP PO PRN (21:24)
[2017-09-12 21:41] LABS: Glucose,Whole Blood 186 mg/dL (75-99)
[2017-09-13] MEDS: methylPREDNISolone SOD SUCCI 40 MG/ML 1 ML VIAL IV SCH ×4 (00:04→18:24)
[2017-09-13 02:02] LABS: Glucose,Whole Blood 197 mg/dL (75-99)
[2017-09-13] MEDS: SODIUM CHLORIDE 0.9% 1,000 ML IV SCH (06:14)
[2017-09-13] MEDS: IPRATROPIUM-ALBUTEROL 3 ML NEB INHALATION SCH ×4 (07:10→19:11)
[2017-09-13] MEDS: SYMBICORT 160-4.5 MCG INHALER INHALATION SCH ×2 (07:10→19:11)
[2017-09-13 07:44] LABS: Glucose,Whole Blood 149 mg/dL (75-99)
[2017-09-13] MEDS: TAMSULOSIN 0.4 MG CAP.ER.24H PO SCH ×2 (08:35→21:32)
[2017-09-13] MEDS: FAMOTIDINE 20 MG TAB PO SCH (08:35)
[2017-09-13] MEDS: INSULIN ASPART 100 UNIT/ML 1 ML 10 ML VIAL SQ SCH ×4 (08:35→21:45)
[2017-09-13] MEDS: ATORVASTATIN 20 MG TAB PO SCH (08:35)
[2017-09-13 08:55] LABS: Anisocytosis Slight; HCT 28.3 % (39.0-53.0); HGB 9.2 gm/dL (13.0-17.5); MCH 28.2 pg (25.0-35.0); MCHC 32.5 g/dL (31.0-37.0); Platelet Count 455 k/uL (150-450); RBC 3.26 m/uL (4.30-5.90); RDW 16.8 % (11.5-15.5); WBC 8.2 k/uL (3.8-10.6)
[2017-09-13 09:57] LABS: Albumin 2.9 g/dL (3.5-5.0); Calcium 7.9 mg/dL (8.4-10.2); Potassium 4.1 mmol/L (3.5-5.1); Total Bilirubin 0.1 mg/dL (0.2-1.3); Total Protein 5.6 g/dL (6.3-8.2)
[2017-09-13 12:28] LABS: Glucose,Whole Blood 138 mg/dL (75-99)
[2017-09-13] MEDS: SODIUM CHLORIDE 0.45% 1,000 ML IV SCH (12:38)
--- NOTE | 2017-09-13 15:36 | PN ---
PROGRESS NOTE Patient is seen for followup for acute kidney injury. His renal function has improved significantly. It was mainly prerenal with creatinine now at 1.04 down from 3.5 mg/dL. Patient has severe underlying COPD. Overall he states he is feeling better. On examination, blood pressure is 166/73, heart rate 92 per minute. He is afebrile. EXAMINATION OF THE HEART: S1, S2. EXAMINATION OF LUNGS: Bilateral breath sounds are heard. Wheezing bilaterally. ABDOMEN: Soft, non-tender. Examination of lower extremities shows no evidence of edema. COUNTERSINKER BALANCE SCREW HOLE exam is grossly intact. Labs show sodium 148, potassium 4.1, chloride 109, BUN 45, serum creatinine 1.04, hemoglobin 9.2 g/dL. ASSESSMENT: 1. Acute kidney injury, prerenal, currently improved with IV fluids. 2. Hypernatremia. Will change IV fluids to half-normal saline. 3. Severe chronic obstructive pulmonary disease with some degree of metabolic alkalosis. 4. Anemia of chronic disease. Rule out iron deficiency. PLAN: Continue IV fluids, decrease rate, and check iron studies. Okay to proceed with CT with IV contrast for the chest if needed from pulmonary standpoint. MMODL / IJN: [id number] /
--- NOTE | 2017-09-13 16:06 | CDI ---
Last Revision, June 2017 Documentation Clarification Form Date: 09/13/17 From: Kayla Rothman RN, CCDS Admit Date: 09/10/2017 1:59:00 PM Patient Name: Iron Rodríguez Visit Number: [id number] Discharge Date: ATTENTION: The Clinical Documentation Specialists (CDI) and [facility] Coding Staff appreciate your assistance in clarifying documentation. Please respond to the clarification below the line at the bottom and electronically sign. The CDI & [facility] Coding staff will review the response and follow-up if needed. Please note: Queries are made part of the Legal Health Record. If you have any questions, please contact the author of this message via ITS. Dr. Yumiko Lujan History/Risk Factors: COPD, Bladder Cancer, BPH, Clinical Indicators: Admit with complaints of increased weakness and shortness of breath. Noted to have creatinine of 3.5 mg/dL and potassium of 6.5 On admission: BUN 94, Cr 3.50, GFR 15 09/13/17 BUN 45 CR 1.04 GFR: 67 Patients Baseline: CR 1.0 (on 08/22/17) Treatment: IV Fluids Monitor urine output Hold MICHELE inhibitors and Diuretics In order to capture the severity of condition, please clarify if the condition signifies: CKD Stage 1 (GFR > 90) CKD Stage 2 (GFR 60-89) CKD Stage 3 (GFR 30-59) CKD Stage 4 (GFR 15-29) CKD Stage 5 (GFR <15) ESRD Other, please specify Unable to determine Please continue to document in your progress notes and discharge summary in order to capture severity of illness and risk of mortality. Include clinical findings that support your diagnosis. MTDD
[2017-09-13] MEDS: CITALOPRAM HYDROBROMIDE 20 MG TAB PO SCH (16:10)
[2017-09-13 17:21] LABS: Glucose,Whole Blood 141 mg/dL (75-99)
--- NOTE | 2017-09-13 18:09 | P.PN ---
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 The patient has been having multiple hospitalizations for pulmonary complications. During a hospitalization back in July the patient was found to have stenotrophomonas in the bronchioloalveolar lavage that was identified at a time of bronchoscopy. The patient was treated with Bactrim back then. During the course of treatment the patient developed an acute kidney injury that was drug-induced and ultimately he was treated and recovered. Nevertheless he continued to be short of breath and he had a very limited overall performance and functional status due to shortness of breath. He has constant cough and congestion his chest. He also has history of DVT of the lower extremity. He was treated with anticoagulation for quite some time and he was subsequently taken off anticoagulation due to hematuria the patient is also known to have bladder cancer. He does not recall any status where he had pulmonary embolism. The patient came into the hospital because of increased shortness of breath, pain across the left chest which was somewhat pleuritic in nature. No hemoptysis. He has congested and he has constant cough and bronchospasm wheezing related to his advanced COPD. No calf pain or tenderness pain no swelling lower extremities. He is having some lower abdominal pain in addition. He has stooled. No evidence of any GI bleeding. No nausea or vomiting. No diarrhea. No dysuria exam [place]. No hematuria. Urinalysis has not been done. The patient's oral intake has been overall low and the patient was found to have an acute kidney injury on top of his chronic renal failure. His creatinine is up to 3.5 at the time of admission with a BUN of 94. Potassium level was also at 6.1. The patient was treated for his hyperkalemia and repeat level is at 6.1. Note that the patient was given Kayexalate 45 g yesterday and 30 g today. The patient is also on IV fluids at 150 mL of normal saline. No leukocytosis. On 09/12/2088 seeing this patient for a follow-up. The patient was seen yesterday in consultation. He has advanced and and stage COPD. The patient also has had multiple exacerbation of COPD and previous stenotrophomonas infection of the lung. The patient is currently being treated for an acute kidney injury as the patient presented with acute kidney failure secondary to dehydration. Renal function is improving as the patient is being hydrated with IV fluids. Meanwhile, he was having some gastrointestinal complaints and the lipase level was slightly elevated and ultrasound the abdomen was done that came back nonspecific and there was no evidence of any pancreatitis. Although this is suspected based on the elevated lipase level. Also, the patient had a Doppler of the lower extremity that showed no evidence of any DVT. We have not committed to long-term anticoagulation as long as the patient has no Dopplers and clinically is doing better on his less short of breath and the pleurisy has subsided on today's evaluation. Urinalysis came back negative. He is afebrile. He is extremely debilitated secondary to COPD. Pulse ox is around 97 % on 2 L of oxygen nasal cannula. Slightly tachycardic. On 09/13/2017 patient seen in follow-up on medical surgical floor. He reports some improvement in his breathing. Lung sounds are diminished, with expiratory wheezing, patient still has congested nonproductive cough. Not able to expectorate any sputum. His appetite is improving. He still is seeming IV hydration in the form of 0.45 normal saline at a rate of 50 ML per hour. On today's lab work CBC is within normal limits at 8.2, hemoglobin is 9.2, serum sodium is 148, there has been improvement in his renal profile, BUN is down to 45 from 66 and creatinine is at 1.04 down from 1.44. Patient's amylase is now within normal limits, and lipase is trending down, down to 389 from 634. Patient is on 2 L per nasal cannula with O2 sat 96%. He is afebrile, slightly tachycardic with a rate of 106 BPM. Patient continues on combination of nebulized treatments, Symbicort, IV steroids. Objective - Vital Signs Vital signs: Vital Signs Temp 97.0 F L 09/13/17 15:00 Pulse 101 H 09/13/17 15:07 Resp 18 09/13/17 16:00 BP 150/71 09/13/17 15:00 Pulse Ox 96 09/13/17 15:00 Intake & Output 09/12/17 09/13/17 09/13/17 18:59 06:59 18:59 Intake Total 840 1200 Output Total 600 400 Balance 240 1200 -400 Intake: IV 600 600 Sodium Chloride 0.9% 1, 600 600 000 ml @ 75 mls/hr IV . [id number] [facility] Rx#:[id number] Intake, IV Titration 600 Amount Sodium Chloride 0.9% 1, 600 000 ml @ 75 mls/hr IV . [id number] [facility] Rx#:[id number] Oral 240 Output: Urine 600 400 Other: Voiding Method Urinal Urinal # Voids 1 3 - Exam GENERAL EXAM: Alert, pleasant, thin, 82-year-old white male, mildly short of breath at rest, but fairly comfortable HEAD: Normocephalic/atraumatic. EYES: Normal reaction of pupils, equal size. Conjunctiva pink, sclera white. NOSE: Clear with pink turbinates. THROAT: No erythema or exudates. NECK: No masses, no JVD, no thyroid enlargement, no adenopathy. CHEST: No chest wall deformity. Symmetrical expansion. LUNGS: Equal air entry with scattered rhonchi, and wheezing throughout the lung wood. Diminished air entry noted bilaterally CVS: Regular rate and rhythm, normal S1 and S2, no gallops, no murmurs, no rubs ABDOMEN: Soft, nontender. No hepatosplenomegaly, normal bowel sounds, no guarding or rigidity. EXTREMITIES: No clubbing, no edema, no cyanosis, 2+ pulses and upper and lower extremities. MUSCULOSKELETAL: Muscle strength and tone normal. SPINE: No scoliosis or deformity SKIN: No rashes CENTRAL NERVOUS SYSTEM: Alert and oriented -3. No focal deficits, tone is normal in all 4 extremities. PSYCHIATRIC: Alert and oriented -3. Appropriate affect. Intact judgment and insight. - Labs CBC & Chem 7: 09/13/17 08:35 09/13/17 08:35 Labs: Abnormal Lab Results - Last 24 Hours (Table) 09/12/17 09/13/17 09/13/17 Range/Units 21:02 02:01 07:34 RBC (4.30-5.90) m/uL Hgb (13.0-17.5) gm/dL Hct (39.0-53.0) % RDW (11.5-15.5) % Plt Count (150-450) k/uL Sodium (137-145) mmol/L Chloride (98-107) mmol/L Carbon Dioxide (22-30) mmol/L BUN (9-20) mg/dL Glucose (74-99) mg/dL POC Glucose (mg/dL) 186 H 197 H 149 H (75-99) mg/dL Calcium (8.4-10.2) mg/dL Total Bilirubin (0.2-1.3) mg/dL Total Protein (6.3-8.2) g/dL Albumin (3.5-5.0) g/dL Lipase (23-300) U/L 09/13/17 09/13/17 09/13/17 Range/Units 08:35 08:35 12:23 RBC 3.26 L (4.30-5.90) m/uL Hgb 9.2 L (13.0-17.5) gm/dL Hct 28.3 L (39.0-53.0) % RDW 16.8 H (11.5-15.5) % Plt Count 455 H (150-450) k/uL Sodium 148 H (137-145) mmol/L Chloride 109 H (98-107) mmol/L Carbon Dioxide 31 H (22-30) mmol/L BUN 45 H (9-20) mg/dL Glucose 149 H (74-99) mg/dL POC Glucose (mg/dL) 138 H (75-99) mg/dL Calcium 7.9 L (8.4-10.2) mg/dL Total Bilirubin 0.1 L (0.2-1.3) mg/dL Total Protein 5.6 L (6.3-8.2) g/dL Albumin 2.9 L (3.5-5.0) g/dL Lipase 389 H (23-300) U/L 09/13/17 Range/Units 17:10 RBC (4.30-5.90) m/uL Hgb (13.0-17.5) gm/dL Hct (39.0-53.0) % RDW (11.5-15.5) % Plt Count (150-450) k/uL Sodium (137-145) mmol/L Chloride (98-107) mmol/L Carbon Dioxide (22-30) mmol/L BUN (9-20) mg/dL Glucose (74-99) mg/dL POC Glucose (mg/dL) 141 H (75-99) mg/dL Calcium (8.4-10.2) mg/dL Total Bilirubin (0.2-1.3) mg/dL Total Protein (6.3-8.2) g/dL Albumin (3.5-5.0) g/dL Lipase (23-300) U/L Microbiology - Last 24 Hours (Table) 09/12/17 08:22 Gram Stain - Preliminary Sputum Sputum Culture - Preliminary Assessment and Plan Plan: Assessment: - Acute COPD exacerbation completed by tracheobronchitis, and the patient is a clear chest x-ray and there is no evidence of any acute pulmonary infiltration. Atelectatic change in lung bases are seen. Clinically the patient is improving and the patient is less short of breath compared to yesterday. Pleurisy is completely subsided on today's evaluation. Doppler of the lower extremities negative. - Advanced steroid dependent COPD, with a baseline FEV1 of 33% of predicted - Acute kidney injury, likely secondary to intravascular volume depletion and dehydration and the creatinine is up to 3.5, and the patient was resuscitated IV fluids and there has been improvement in the patient's Renal function and creatinine is down to 1.04 - Hyperkalemia, possibly related to acute kidney injury . Patient is also on potassium supplements and lisinopril which is probably contributing to the acute kidney injury. Patient's potassium level improved since down to 4.1 - Hypernatremia, serum sodium is 148, probably related to decreased free water intake - History of nicotine dependence - hyperlipidemia - Hypertension - Neoplasm of bladder - History of deep venous thrombosis, history of currently on no anticoagulants -Stenotrophomonas l tracheobronchitis treated in 2018 -Abdominal pain, under investigation. Patient may have an underlying mild component of pancreatitis. THE ABDOMEN WAS NEGATIVE PLAN Decrease the IV steroids down to 40 mg every 6 hours. Continue with nebulized treatments, and Symbicort. Patient is improving, we'll give the patient flutter valve to help with expectoration sputum. His states is decreased oral intake is related to his underlying depression. We will initiate Celexa at 20 mg daily. Continue with current plan of care, continue IV hydration, oral intake. I performed a history & physical examination of the patient and discussed their management with my nurse practitioner, Dora Abarca. I reviewed the nurse practitioner's note and agree with the documented findings and plan of care. Lung sounds are positive for diminished air entry bilaterally, with expiratory wheezing and scattered rhonchi. The findings and the impression was discussed with the patient. I attest to the documentation by the nurse practitioner. Time with Patient: Less than 30
[2017-09-13 20:16] LABS: Iron Saturation 21.28 (15.00-50.00)
[2017-09-13 20:52] LABS: Glucose,Whole Blood 153 mg/dL (75-99)
[2017-09-14] MEDS: methylPREDNISolone SOD SUCCI 40 MG/ML 1 ML VIAL IV SCH ×5 (00:36→23:16)
[2017-09-14] MEDS: SODIUM CHLORIDE 0.45% 1,000 ML IV SCH (05:59)
[2017-09-14 07:24] LABS: Glucose,Whole Blood 122 mg/dL (75-99)
[2017-09-14] MEDS: IPRATROPIUM-ALBUTEROL 3 ML NEB INHALATION SCH ×4 (08:32→20:53)
[2017-09-14] MEDS: SYMBICORT 160-4.5 MCG INHALER INHALATION SCH ×2 (08:32→20:51)
[2017-09-14] MEDS: CITALOPRAM HYDROBROMIDE 20 MG TAB PO SCH (08:43)
[2017-09-14] MEDS: FAMOTIDINE 20 MG TAB PO SCH (08:43)
[2017-09-14] MEDS: INSULIN ASPART 100 UNIT/ML 1 ML 10 ML VIAL SQ SCH ×4 (08:43→21:38)
[2017-09-14] MEDS: TAMSULOSIN 0.4 MG CAP.ER.24H PO SCH ×2 (08:43→21:26)
[2017-09-14] MEDS: ATORVASTATIN 20 MG TAB PO SCH (08:43)
[2017-09-14 12:14] LABS: Calcium 7.8 mg/dL (8.4-10.2); Potassium 4.5 mmol/L (3.5-5.1)
--- NOTE | 2017-09-14 12:19 | P.PN ---
Subjective Progress Note Date: 09/14/17 Seen and examined for the follow-up of acute kidney injury. Doing better tolerating oral diet. Objective - Vital Signs Vital signs: Vital Signs Temp 97.0 F L 09/14/17 07:00 Pulse 108 H 09/14/17 12:07 Resp 18 09/14/17 08:00 BP 159/82 09/14/17 07:00 Pulse Ox 96 09/14/17 07:00 Intake & Output 09/13/17 09/14/17 09/14/17 18:59 06:59 18:59 Intake Total 600 Output Total 400 400 Balance -400 200 Intake: Oral 600 Output: Urine 400 400 Other: Voiding Method Urinal Urinal # Voids 1 1 - Exam Lying comfortable no acute distress S1-S2 heard Lungs Clear No edema - Labs CBC & Chem 7: 09/13/17 08:35 09/13/17 08:35 Labs: Abnormal Lab Results - Last 24 Hours (Table) 09/13/17 09/13/17 09/13/17 Range/Units 08:35 12:23 17:10 POC Glucose (mg/dL) 138 H 141 H (75-99) mg/dL Iron 60 L (65-175) ug/dL 09/13/17 09/14/17 Range/Units 20:24 07:04 POC Glucose (mg/dL) 153 H 122 H (75-99) mg/dL Iron (65-175) ug/dL Microbiology - Last 24 Hours (Table) 09/12/17 08:22 Gram Stain - Final Sputum Sputum Culture - Final Assessment and Plan Assessment: Impression: #1 acute kidney injury secondary to prerenal process resolved #2 hypernatremia secondary to IV fluids #3 COPD #4 anemia of chronic disease Recommendations: #1. Stop IV fluids. #2 avoid nephrotoxic agents and hypotensive episodes #3 stable from nephrology point of view to be discharged.
[2017-09-14 12:34] LABS: Glucose,Whole Blood 110 mg/dL (75-99)
[2017-09-14 14:50] VITALS: BMI 18.9
--- NOTE | 2017-09-14 16:42 | P.PN ---
Subjective Progress Note Date: 09/14/17 Principal diagnosis: Acute exacerbation of chronic obstructive pulmonary disease complicated by tracheobronchitis. 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 The patient has been having multiple hospitalizations for pulmonary complications. During a hospitalization back in July the patient was found to have stenotrophomonas in the bronchioloalveolar lavage that was identified at a time of bronchoscopy. The patient was treated with Bactrim back then. During the course of treatment the patient developed an acute kidney injury that was drug-induced and ultimately he was treated and recovered. Nevertheless he continued to be short of breath and he had a very limited overall performance and functional status due to shortness of breath. He has constant cough and congestion his chest. He also has history of DVT of the lower extremity. He was treated with anticoagulation for quite some time and he was subsequently taken off anticoagulation due to hematuria the patient is also known to have bladder cancer. He does not recall any status where he had pulmonary embolism. The patient came into the hospital because of increased shortness of breath, pain across the left chest which was somewhat pleuritic in nature. No hemoptysis. He has congested and he has constant cough and bronchospasm wheezing related to his advanced COPD. No calf pain or tenderness pain no swelling lower extremities. He is having some lower abdominal pain in addition. He has stooled. No evidence of any GI bleeding. No nausea or vomiting. No diarrhea. No dysuria exam [place]. No hematuria. Urinalysis has not been done. The patient's oral intake has been overall low and the patient was found to have an acute kidney injury on top of his chronic renal failure. His creatinine is up to 3.5 at the time of admission with a BUN of 94. Potassium level was also at 6.1. The patient was treated for his hyperkalemia and repeat level is at 6.1. Note that the patient was given Kayexalate 45 g yesterday and 30 g today. The patient is also on IV fluids at 150 mL of normal saline. No leukocytosis. On 09/12/2088 seeing this patient for a follow-up. The patient was seen yesterday in consultation. He has advanced and and stage COPD. The patient also has had multiple exacerbation of COPD and previous stenotrophomonas infection of the lung. The patient is currently being treated for an acute kidney injury as the patient presented with acute kidney failure secondary to dehydration. Renal function is improving as the patient is being hydrated with IV fluids. Meanwhile, he was having some gastrointestinal complaints and the lipase level was slightly elevated and ultrasound the abdomen was done that came back nonspecific and there was no evidence of any pancreatitis. Although this is suspected based on the elevated lipase level. Also, the patient had a Doppler of the lower extremity that showed no evidence of any DVT. We have not committed to long-term anticoagulation as long as the patient has no Dopplers and clinically is doing better on his less short of breath and the pleurisy has subsided on today's evaluation. Urinalysis came back negative. He is afebrile. He is extremely debilitated secondary to COPD. Pulse ox is around 97 % on 2 L of oxygen nasal cannula. Slightly tachycardic. On 09/13/2017 patient seen in follow-up on medical surgical floor. He reports some improvement in his breathing. Lung sounds are diminished, with expiratory wheezing, patient still has congested nonproductive cough. Not able to expectorate any sputum. His appetite is improving. He still is seeming IV hydration in the form of 0.45 normal saline at a rate of 50 ML per hour. On today's lab work CBC is within normal limits at 8.2, hemoglobin is 9.2, serum sodium is 148, there has been improvement in his renal profile, BUN is down to 45 from 66 and creatinine is at 1.04 down from 1.44. Patient's amylase is now within normal limits, and lipase is trending down, down to 389 from 634. Patient is on 2 L per nasal cannula with O2 sat 96%. He is afebrile, slightly tachycardic with a rate of 106 BPM. Patient continues on combination of nebulized treatments, Symbicort, IV steroids. The patient is seen again today 09/14/2017 in follow-up in the regular medical floor. He is doing better today as compared to yesterday. Still not quite back to his baseline. He continues to utilize the flutter valve and is maintaining good O2 saturations in the mid 90s on 2 L/m per nasal cannula. He is afebrile. Sputum culture reveals no growth. 142, potassium 4.5, creatinine 1.00. He is maintained on DuoNeb's, Symbicort, as Solu-Medrol. Objective - Vital Signs Vital signs: Vital Signs Temp 98.3 F 09/14/17 14:56 Pulse 98 09/14/17 14:56 Resp 20 09/14/17 14:56 BP 145/65 09/14/17 14:56 Pulse Ox 95 09/14/17 14:56 Intake & Output 09/13/17 09/14/17 09/14/17 18:59 06:59 18:59 Intake Total 600 Output Total 400 400 Balance -400 200 Weight 59.8 kg Intake: Oral 600 Output: Urine 400 400 Other: Voiding Method Urinal Urinal # Voids 1 1 2 - Exam GENERAL EXAM: Alert, fairly comfortable in no acute distress HEAD: Normocephalic/atraumatic. EYES: Normal reaction of pupils, equal size. Conjunctiva pink, sclera white. NOSE: Clear with pink turbinates. THROAT: No erythema or exudates. NECK: No masses, no JVD, no thyroid enlargement, no adenopathy. CHEST: No chest wall deformity. Symmetrical expansion. LUNGS: Equal air entry with scattered rhonchi, and wheezing throughout the lung wood. Diminished air entry noted bilaterally CVS: Regular rate and rhythm, normal S1 and S2, no gallops, no murmurs, no rubs ABDOMEN: Soft, nontender. No hepatosplenomegaly, normal bowel sounds, no guarding or rigidity. EXTREMITIES: No clubbing, no edema, no cyanosis, 2+ pulses and upper and lower extremities. MUSCULOSKELETAL: Muscle strength and tone normal. SPINE: No scoliosis or deformity SKIN: No rashes CENTRAL NERVOUS SYSTEM: Alert and oriented -3. No focal deficits, tone is normal in all 4 extremities. PSYCHIATRIC: Alert and oriented -3. Appropriate affect. Intact judgment and insight. - Labs CBC & Chem 7: 09/13/17 08:35 09/14/17 11:50 Labs: Abnormal Lab Results - Last 24 Hours (Table) 09/13/17 09/13/17 09/13/17 Range/Units 08:35 17:10 20:24 BUN (9-20) mg/dL Glucose (74-99) mg/dL POC Glucose (mg/dL) 141 H 153 H (75-99) mg/dL Calcium (8.4-10.2) mg/dL Iron 60 L (65-175) ug/dL 09/14/17 09/14/17 09/14/17 Range/Units 07:04 11:50 12:21 BUN 41 H (9-20) mg/dL Glucose 143 H (74-99) mg/dL POC Glucose (mg/dL) 122 H 110 H (75-99) mg/dL Calcium 7.8 L (8.4-10.2) mg/dL Iron (65-175) ug/dL Microbiology - Last 24 Hours (Table) 09/12/17 08:22 Gram Stain - Final Sputum Sputum Culture - Final Assessment and Plan Assessment: Assessment: - Acute COPD exacerbation completed by tracheobronchitis, and the patient is a clear chest x-ray and there is no evidence of any acute pulmonary infiltration. Atelectatic change in lung bases are seen. Clinically the patient is improving and the patient is less short of breath compared to yesterday. Pleurisy is completely subsided on today's evaluation. Doppler of the lower extremities negative. - Advanced steroid dependent COPD, with a baseline FEV1 of 33% of predicted - Acute kidney injury, likely secondary to intravascular volume depletion and dehydration and the creatinine is up to 3.5, and the patient was resuscitated IV fluids and there has been improvement in the patient's Renal function and creatinine is down to 1.04 - Hyperkalemia, possibly related to acute kidney injury . Patient is also on potassium supplements and lisinopril which is probably contributing to the acute kidney injury. Patient's potassium level improved since down to 4.1 - Hypernatremia, serum sodium is 148, probably related to decreased free water intake - History of nicotine dependence - hyperlipidemia - Hypertension - Neoplasm of bladder - History of deep venous thrombosis, history of currently on no anticoagulants -Stenotrophomonas l tracheobronchitis treated in 2018 -Abdominal pain, under investigation. Patient may have an underlying mild component of pancreatitis. Plan: The patient was seen and evaluated by Dr. Winston. He is currently stable from the pulmonary standpoint. We'll continue with his current treatment plan. We'll increase his activity as tolerated. We'll continue to follow. Probable discharge in the a.m. I, the cosigning physician, performed a history & physical examination of the patient. Lungs sounds with bilateral end expiratory wheeze.. Maintaining good O2 saturations in the 90s on 2 L/m per nasal cannula. I discussed the assessment and plan of care with my nurse practitioner, Mary Austin. I attest to the above note as dictated by her.
[2017-09-14 16:52] LABS: Glucose,Whole Blood 131 mg/dL (75-99)
[2017-09-14] MEDS: SODIUM CHLORIDE 0.65% NASAL SPRAY 44 ML BTL NASAL PRN (17:46)
[2017-09-14 21:28] LABS: Glucose,Whole Blood 137 mg/dL (75-99)
--- NOTE | 2017-09-15 00:25 | P.PN ---
Subjective Progress Note Date: 09/13/17 Principal diagnosis: Acute kidney injury Patient admitted with acute kidney injury and COPD exacerbation On 09/13/2017 Patient says that his breathing is improving., Complaints of cough with nonproductive sputum. Patient was found to have sodium level of 148. IV fluids have been changed to half normal saline at 50 mL per hour Amylase and lipase trending down. Patient is saturating well on nasal cannula. Continued on IV steroids and breathing treatments. Pulmonary and nephrology is following. All other review of systems negative except the above Current medications reviewed. Objective - Vital Signs Vital signs: Vital Signs Temp 97.0 F L 09/13/17 15:00 Pulse 101 H 09/13/17 19:22 Resp 18 09/13/17 19:22 BP 150/71 09/13/17 15:00 Pulse Ox 96 09/13/17 15:00 Intake & Output 09/13/17 09/13/17 09/14/17 06:59 18:59 06:59 Intake Total 1200 Output Total 400 Balance 1200 -400 Intake: IV 600 Sodium Chloride 0.9% 1, 600 000 ml @ 75 mls/hr IV . [id number] [facility] Rx#:[id number] Intake, IV Titration 600 Amount Sodium Chloride 0.9% 1, 600 000 ml @ 75 mls/hr IV . [id number] [facility] Rx#:[id number] Output: Urine 400 Other: Voiding Method Urinal # Voids 3 1 - Exam PHYSICAL EXAMINATION: Patient is lying in the bed comfortably, no acute distress, awake alert and oriented.. Mild cognitive impairment. HEENT: Normocephalic. Neck is supple. Pupils reactive. Nostrils clear. Oral cavity is moist. Ears reveal no drainage. Neck reveals no JVD, carotid bruits, or thyromegaly. CHEST EXAMINATION: Trachea is central. Symmetrical expansion. Bilateral diffuse rhonchi and wheezing positive. CARDIAC: Normal S1, S2 with no gallops. No murmurs ABDOMEN: Soft. Bowel sounds normal. No organomegaly. No abdominal bruits. Extremities: reveal no edema. No clubbing or cyanosis Neurologically awake, alert, oriented x3 with well-coordinated movements. No focal deficits noted Skin: No rash or skin lesions. Psychiatric: Cooperative. Nonsuicidal Musculoskeletal: No joint swelling or deformity. Normal range of motion. - Labs CBC & Chem 7: 09/13/17 08:35 09/14/17 11:50 Labs: Abnormal Lab Results - Last 24 Hours (Table) 09/12/17 09/13/17 09/13/17 Range/Units 21:02 02:01 07:34 RBC (4.30-5.90) m/uL Hgb (13.0-17.5) gm/dL Hct (39.0-53.0) % RDW (11.5-15.5) % Plt Count (150-450) k/uL Sodium (137-145) mmol/L Chloride (98-107) mmol/L Carbon Dioxide (22-30) mmol/L BUN (9-20) mg/dL Glucose (74-99) mg/dL POC Glucose (mg/dL) 186 H 197 H 149 H (75-99) mg/dL Calcium (8.4-10.2) mg/dL Total Bilirubin (0.2-1.3) mg/dL Total Protein (6.3-8.2) g/dL Albumin (3.5-5.0) g/dL Lipase (23-300) U/L 09/13/17 09/13/17 09/13/17 Range/Units 08:35 08:35 12:23 RBC 3.26 L (4.30-5.90) m/uL Hgb 9.2 L (13.0-17.5) gm/dL Hct 28.3 L (39.0-53.0) % RDW 16.8 H (11.5-15.5) % Plt Count 455 H (150-450) k/uL Sodium 148 H (137-145) mmol/L Chloride 109 H (98-107) mmol/L Carbon Dioxide 31 H (22-30) mmol/L BUN 45 H (9-20) mg/dL Glucose 149 H (74-99) mg/dL POC Glucose (mg/dL) 138 H (75-99) mg/dL Calcium 7.9 L (8.4-10.2) mg/dL Total Bilirubin 0.1 L (0.2-1.3) mg/dL Total Protein 5.6 L (6.3-8.2) g/dL Albumin 2.9 L (3.5-5.0) g/dL Lipase 389 H (23-300) U/L 09/13/17 09/13/17 Range/Units 17:10 20:24 RBC (4.30-5.90) m/uL Hgb (13.0-17.5) gm/dL Hct (39.0-53.0) % RDW (11.5-15.5) % Plt Count (150-450) k/uL Sodium (137-145) mmol/L Chloride (98-107) mmol/L Carbon Dioxide (22-30) mmol/L BUN (9-20) mg/dL Glucose (74-99) mg/dL POC Glucose (mg/dL) 141 H 153 H (75-99) mg/dL Calcium (8.4-10.2) mg/dL Total Bilirubin (0.2-1.3) mg/dL Total Protein (6.3-8.2) g/dL Albumin (3.5-5.0) g/dL Lipase (23-300) U/L Microbiology - Last 24 Hours (Table) 09/12/17 08:22 Gram Stain - Preliminary Sputum Sputum Culture - Preliminary Assessment and Plan Assessment: Acute COPD exacerbation due to tracheobronchitis Acute kidney injury likely due to dehydration. Creatinine peaked at 3.5. Currently 1.0 Hypernatremia sodium level CXLVIII. IV fluids changed to half-normal saline at 50 mL Abdominal pain. Possible pancreatitis with slightly elevated lipase and amylase. Improved now Advanced COPD Hypernatremia resolved due to acute kidney injury Hyperlipidemia Hypertension History of nicotine dependence Depression DVT prophylaxis Patient will be continued on gentle hydration and IV steroids and breathing treatments. Encourage oral intake. Otherwise continue the current management and follow up closely. Further recommendations based on the clinical course. Time with Patient: Greater than 30
--- NOTE | 2017-09-15 00:27 | P.PN ---
Subjective Progress Note Date: 09/14/17 Principal diagnosis: Acute kidney injury Patient admitted with acute kidney injury and COPD exacerbation On 09/13/2017 Patient says that his breathing is improving., Complaints of cough with nonproductive sputum. Patient was found to have sodium level of 148. IV fluids have been changed to half normal saline at 50 mL per hour Amylase and lipase trending down. Patient is saturating well on nasal cannula. Continued on IV steroids and breathing treatments. Pulmonary and nephrology is following. 09/14/2017 Patient's breathing status is slowly improving. Sodium level 142 today. IV fluids have been discontinued. Otherwise continued on breathing treatments and IV steroids. No other acute overnight issues. Patient has been afebrile. No chest pain no abdominal pain no nausea vomiting or diarrhea. All other review of systems negative except the above Current medications reviewed. Objective - Vital Signs Vital signs: Vital Signs Temp 98.3 F 09/14/17 14:56 Pulse 96 09/14/17 21:08 Resp 20 09/14/17 16:00 BP 145/65 09/14/17 14:56 Pulse Ox 96 09/14/17 20:53 Intake & Output 09/14/17 09/14/17 09/15/17 06:59 18:59 07:59 Intake Total 600 720 Output Total 400 Balance 200 720 Weight 59.8 kg Intake: Oral 600 720 Output: Urine 400 Other: Voiding Method Urinal # Voids 1 2 - Exam PHYSICAL EXAMINATION: Patient is lying in the bed comfortably, no acute distress, awake alert and oriented.. Mild cognitive impairment. HEENT: Normocephalic. Neck is supple. Pupils reactive. Nostrils clear. Oral cavity is moist. Ears reveal no drainage. Neck reveals no JVD, carotid bruits, or thyromegaly. CHEST EXAMINATION: Trachea is central. Symmetrical expansion. Bilateral diffuse rhonchi and wheezing positive. CARDIAC: Normal S1, S2 with no gallops. No murmurs ABDOMEN: Soft. Bowel sounds normal. No organomegaly. No abdominal bruits. Extremities: reveal no edema. No clubbing or cyanosis Neurologically awake, alert, oriented x3 with well-coordinated movements. No focal deficits noted Skin: No rash or skin lesions. Psychiatric: Cooperative. Nonsuicidal Musculoskeletal: No joint swelling or deformity. Normal range of motion. - Labs CBC & Chem 7: 09/13/17 08:35 09/14/17 11:50 Labs: Abnormal Lab Results - Last 24 Hours (Table) 09/13/17 09/14/17 09/14/17 Range/Units 08:35 07:04 11:50 BUN 41 H (9-20) mg/dL Glucose 143 H (74-99) mg/dL POC Glucose (mg/dL) 122 H (75-99) mg/dL Calcium 7.8 L (8.4-10.2) mg/dL Iron 60 L (65-175) ug/dL 09/14/17 09/14/17 09/14/17 Range/Units 12:21 16:44 21:23 BUN (9-20) mg/dL Glucose (74-99) mg/dL POC Glucose (mg/dL) 110 H 131 H 137 H (75-99) mg/dL Calcium (8.4-10.2) mg/dL Iron (65-175) ug/dL Microbiology - Last 24 Hours (Table) 09/12/17 08:22 Gram Stain - Final Sputum Sputum Culture - Final Assessment and Plan Assessment: Acute COPD exacerbation due to tracheobronchitis Acute kidney injury likely due to dehydration. Creatinine peaked at 3.5. Currently 1.0 Hypernatremia due to poor oral intake. resolved Abdominal pain. Possible acute pancreatitis with slightly elevated lipase and amylase. Improved now Advanced COPD Hypernatremia resolved due to acute kidney injury Hyperlipidemia Hypertension History of nicotine dependence Depression DVT prophylaxis Patient will be continued on IV steroids and breathing treatments. DC'd IV fluids. Encourage oral intake. Otherwise continue the current management and follow up closely. Further recommendations based on the clinical course. Time with Patient: Greater than 30
[2017-09-15] MEDS: methylPREDNISolone SOD SUCCI 40 MG/ML 1 ML VIAL IV SCH ×4 (05:35→23:58)
[2017-09-15] MEDS: SYMBICORT 160-4.5 MCG INHALER INHALATION SCH ×2 (07:11→19:13)
[2017-09-15] MEDS: IPRATROPIUM-ALBUTEROL 3 ML NEB INHALATION SCH ×4 (07:11→19:13)
[2017-09-15 08:16] LABS: Glucose,Whole Blood 116 mg/dL (75-99)
[2017-09-15] MEDS: INSULIN ASPART 100 UNIT/ML 1 ML 10 ML VIAL SQ SCH ×4 (08:40→21:23)
[2017-09-15] MEDS: SODIUM CHLORIDE 0.65% NASAL SPRAY 44 ML BTL NASAL PRN (08:40)
[2017-09-15] MEDS: TAMSULOSIN 0.4 MG CAP.ER.24H PO SCH ×2 (08:41→21:23)
[2017-09-15] MEDS: FAMOTIDINE 20 MG TAB PO SCH (08:41)
[2017-09-15] MEDS: ATORVASTATIN 20 MG TAB PO SCH (08:41)
[2017-09-15] MEDS: CITALOPRAM HYDROBROMIDE 20 MG TAB PO SCH (08:41)
[2017-09-15 12:13] LABS: Glucose,Whole Blood 130 mg/dL (75-99)
--- NOTE | 2017-09-15 16:34 | P.PN ---
Subjective Progress Note Date: 09/15/17 Acute exacerbation of chronic obstructive pulmonary disease complicated by tracheobronchitis. 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 The patient has been having multiple hospitalizations for pulmonary complications. During a hospitalization back in July the patient was found to have stenotrophomonas in the bronchioloalveolar lavage that was identified at a time of bronchoscopy. The patient was treated with Bactrim back then. During the course of treatment the patient developed an acute kidney injury that was drug-induced and ultimately he was treated and recovered. Nevertheless he continued to be short of breath and he had a very limited overall performance and functional status due to shortness of breath. He has constant cough and congestion his chest. He also has history of DVT of the lower extremity. He was treated with anticoagulation for quite some time and he was subsequently taken off anticoagulation due to hematuria the patient is also known to have bladder cancer. He does not recall any status where he had pulmonary embolism. The patient came into the hospital because of increased shortness of breath, pain across the left chest which was somewhat pleuritic in nature. No hemoptysis. He has congested and he has constant cough and bronchospasm wheezing related to his advanced COPD. No calf pain or tenderness pain no swelling lower extremities. He is having some lower abdominal pain in addition. He has stooled. No evidence of any GI bleeding. No nausea or vomiting. No diarrhea. No dysuria exam [place]. No hematuria. Urinalysis has not been done. The patient's oral intake has been overall low and the patient was found to have an acute kidney injury on top of his chronic renal failure. His creatinine is up to 3.5 at the time of admission with a BUN of 94. Potassium level was also at 6.1. The patient was treated for his hyperkalemia and repeat level is at 6.1. Note that the patient was given Kayexalate 45 g yesterday and 30 g today. The patient is also on IV fluids at 150 mL of normal saline. No leukocytosis. On 09/12/2088 seeing this patient for a follow-up. The patient was seen yesterday in consultation. He has advanced and and stage COPD. The patient also has had multiple exacerbation of COPD and previous stenotrophomonas infection of the lung. The patient is currently being treated for an acute kidney injury as the patient presented with acute kidney failure secondary to dehydration. Renal function is improving as the patient is being hydrated with IV fluids. Meanwhile, he was having some gastrointestinal complaints and the lipase level was slightly elevated and ultrasound the abdomen was done that came back nonspecific and there was no evidence of any pancreatitis. Although this is suspected based on the elevated lipase level. Also, the patient had a Doppler of the lower extremity that showed no evidence of any DVT. We have not committed to long-term anticoagulation as long as the patient has no Dopplers and clinically is doing better on his less short of breath and the pleurisy has subsided on today's evaluation. Urinalysis came back negative. He is afebrile. He is extremely debilitated secondary to COPD. Pulse ox is around 97 % on 2 L of oxygen nasal cannula. Slightly tachycardic. On 09/13/2017 patient seen in follow-up on medical surgical floor. He reports some improvement in his breathing. Lung sounds are diminished, with expiratory wheezing, patient still has congested nonproductive cough. Not able to expectorate any sputum. His appetite is improving. He still is seeming IV hydration in the form of 0.45 normal saline at a rate of 50 ML per hour. On today's lab work CBC is within normal limits at 8.2, hemoglobin is 9.2, serum sodium is 148, there has been improvement in his renal profile, BUN is down to 45 from 66 and creatinine is at 1.04 down from 1.44. Patient's amylase is now within normal limits, and lipase is trending down, down to 389 from 634. Patient is on 2 L per nasal cannula with O2 sat 96%. He is afebrile, slightly tachycardic with a rate of 106 BPM. Patient continues on combination of nebulized treatments, Symbicort, IV steroids. The patient is seen again today 09/14/2017 in follow-up in the regular medical floor. He is doing better today as compared to yesterday. Still not quite back to his baseline. He continues to utilize the flutter valve and is maintaining good O2 saturations in the mid 90s on 2 L/m per nasal cannula. He is afebrile. Sputum culture reveals no growth. 142, potassium 4.5, creatinine 1.00. He is maintained on DuoNeb's, Symbicort, as Solu-Medrol. On 09/15/2017, patient is doing well and the patient has no specific complaints. He is using the flutter valve which is facilitating respiratory secretions and pulmonary toileting. The patient is not having any worsening shortness of breath. His renal function is normalized and the creatinine is down to 1. No electrode disturbances. No significant abdominal pain. No nausea or vomiting. No diarrhea. He was feeling down and depressed and the patient was started on 20 mg of Celexa yesterday and I told him that this will take some time to improve his overall condition and symptoms of depression. Meanwhile, the patient remains on DuoNeb neb treatments around the clock and he is on IV Solu Medrol and he will be tapered to prednisone burst taper as of tomorrow. Discharge planning is in progress for now. Objective - Vital Signs Vital signs: Vital Signs Temp 98.8 F 09/15/17 15:00 Pulse 108 H 09/15/17 15:46 Resp 22 09/15/17 15:46 BP 119/85 09/15/17 15:00 Pulse Ox 97 09/15/17 15:00 Intake & Output 09/14/17 09/15/17 09/15/17 17:59 06:59 18:59 Intake Total 520 Output Total Balance 520 Weight Intake: Oral 520 Output: Urine Other: Voiding Method Urinal # Voids 3 # Bowel Movements - Exam GENERAL EXAM: Alert, pleasant, thin, 82-year-old white male, mildly short of breath at rest, but fairly comfortable HEAD: Normocephalic/atraumatic. EYES: Normal reaction of pupils, equal size. Conjunctiva pink, sclera white. NOSE: Clear with pink turbinates. THROAT: No erythema or exudates. NECK: No masses, no JVD, no thyroid enlargement, no adenopathy. CHEST: No chest wall deformity. Symmetrical expansion. LUNGS: Equal air entry with scattered rhonchi, and wheezing throughout the lung wood. CVS: Regular rate and rhythm, normal S1 and S2, no gallops, no murmurs, no rubs ABDOMEN: Soft, nontender. No hepatosplenomegaly, normal bowel sounds, no guarding or rigidity. EXTREMITIES: No clubbing, no edema, no cyanosis, 2+ pulses and upper and lower extremities. MUSCULOSKELETAL: Muscle strength and tone normal. SPINE: No scoliosis or deformity SKIN: No rashes CENTRAL NERVOUS SYSTEM: Alert and oriented -3. No focal deficits, tone is normal in all 4 extremities. PSYCHIATRIC: Alert and oriented -3. Appropriate affect. Intact judgment and insight. - Labs CBC & Chem 7: 09/13/17 08:35 09/14/17 11:50 Labs: Abnormal Lab Results - Last 24 Hours (Table) 09/14/17 09/14/17 09/15/17 Range/Units 16:44 21:23 07:46 POC Glucose (mg/dL) 131 H 137 H 116 H (75-99) mg/dL 09/15/17 Range/Units 11:57 POC Glucose (mg/dL) 130 H (75-99) mg/dL Microbiology - Last 24 Hours (Table) 09/12/17 08:22 Gram Stain - Final Sputum Sputum Culture - Final Assessment and Plan Plan: Assessment: - Acute COPD exacerbation completed by tracheobronchitis, and the patient is a clear chest x-ray and there is no evidence of any acute pulmonary infiltration. Atelectatic change in lung bases are seen. Clinically the patient is improving and the patient is less short of breath compared to yesterday. Pleurisy is completely subsided on today's evaluation. Doppler of the lower extremities negative. No clinical evidence of pulmonary embolism and based on that this diagnosis was not pursued any further. - Advanced steroid dependent COPD, with a baseline FEV1 of 33% of predicted - Acute kidney injury, likely secondary to intravascular volume depletion and dehydration and the creatinine is up to 3.5, and the patient was resuscitated IV fluids and there has been improvement in the patient's Renal function and creatinine is down to 1.0 - Hyperkalemia, possibly related to acute kidney injury . Patient is also on potassium supplements and lisinopril which is probably contributing to the acute kidney injury. Patient's potassium level normalized - Hypernatremia, recovered - History of nicotine dependence - hyperlipidemia - Hypertension - Neoplasm of bladder - History of deep venous thrombosis, history of currently on no anticoagulants -Stenotrophomonas l tracheobronchitis treated in 2018 -Abdominal pain, under investigation. Patient may have an underlying mild component of pancreatitis. Abdominal pain is subsided Plan Continue current treatment and taper the patient a prednisone in a.m. Continue bronchodilators. Continue flutter valve. Kept on IV fluids to KVO. Encourage oral intake. We'll continue to follow.
[2017-09-15 17:56] LABS: Glucose,Whole Blood 121 mg/dL (75-99)
[2017-09-15 21:04] LABS: Glucose,Whole Blood 211 mg/dL (75-99)
--- NOTE | 2017-09-16 00:34 | P.PN ---
Subjective Progress Note Date: 09/15/17 Principal diagnosis: Acute kidney injury Patient admitted with acute kidney injury and COPD exacerbation On 09/13/2017 Patient says that his breathing is improving., Complaints of cough with nonproductive sputum. Patient was found to have sodium level of 148. IV fluids have been changed to half normal saline at 50 mL per hour Amylase and lipase trending down. Patient is saturating well on nasal cannula. Continued on IV steroids and breathing treatments. Pulmonary and nephrology is following. 09/14/2017 Patient's breathing status is slowly improving. Sodium level 142 today. IV fluids have been discontinued. Otherwise continued on breathing treatments and IV steroids. No other acute overnight issues. Patient has been afebrile. No chest pain no abdominal pain no nausea vomiting or diarrhea. 09/15/2017 Patient denied any new complaints today. No chest pain. Continue to have wheezing and rhonchi. No fever no chills. No other acute overnight issues. Patient is being continued on IV steroids and breathing treatments. Pulmonary is following. All other review of systems negative except the above Current medications reviewed. Objective - Vital Signs Vital signs: Vital Signs Temp 98.8 F 09/15/17 15:00 Pulse 76 09/15/17 19:28 Resp 22 09/15/17 15:46 BP 119/85 09/15/17 15:00 Pulse Ox 97 09/15/17 19:14 Intake & Output 09/15/17 09/15/17 09/16/17 06:59 18:59 06:59 Intake Total 520 Output Total Balance 520 Intake: Oral 520 Output: Urine Other: Voiding Method Urinal # Voids 3 # Bowel Movements - Exam PHYSICAL EXAMINATION: Patient is lying in the bed comfortably, no acute distress, awake alert and oriented.. Mild cognitive impairment. HEENT: Normocephalic. Neck is supple. Pupils reactive. Nostrils clear. Oral cavity is moist. Ears reveal no drainage. Neck reveals no JVD, carotid bruits, or thyromegaly. CHEST EXAMINATION: Trachea is central. Symmetrical expansion. Bilateral diffuse rhonchi and wheezing positive. CARDIAC: Normal S1, S2 with no gallops. No murmurs ABDOMEN: Soft. Bowel sounds normal. No organomegaly. No abdominal bruits. Extremities: reveal no edema. No clubbing or cyanosis Neurologically awake, alert, oriented x3 with well-coordinated movements. No focal deficits noted Skin: No rash or skin lesions. Psychiatric: Cooperative. Nonsuicidal Musculoskeletal: No joint swelling or deformity. Normal range of motion. - Labs CBC & Chem 7: 09/13/17 08:35 09/14/17 11:50 Labs: Abnormal Lab Results - Last 24 Hours (Table) 09/14/17 09/15/17 09/15/17 Range/Units 21:23 07:46 11:57 POC Glucose (mg/dL) 137 H 116 H 130 H (75-99) mg/dL 09/15/17 09/15/17 Range/Units 17:26 21:02 POC Glucose (mg/dL) 121 H 211 H (75-99) mg/dL Assessment and Plan Assessment: Acute COPD exacerbation due to tracheobronchitis Acute kidney injury likely due to dehydration. Creatinine peaked at 3.5. Currently 1.0 Hypernatremia due to poor oral intake. resolved Abdominal pain. Possible acute pancreatitis with slightly elevated lipase and amylase. Improved now Advanced COPD Hypernatremia resolved due to acute kidney injury Hyperlipidemia Hypertension History of nicotine dependence Depression DVT prophylaxis Patient will be continued on IV steroids and breathing treatments. DC'd IV fluids. Encourage oral intake. Otherwise continue the current management and follow up closely. Further recommendations based on the clinical course.
[2017-09-16] MEDS: methylPREDNISolone SOD SUCCI 40 MG/ML 1 ML VIAL IV SCH ×3 (05:27→21:42)
[2017-09-16 07:28] LABS: Glucose,Whole Blood 107 mg/dL (75-99)
[2017-09-16] MEDS: SYMBICORT 160-4.5 MCG INHALER INHALATION SCH ×2 (08:13→20:47)
[2017-09-16] MEDS: IPRATROPIUM-ALBUTEROL 3 ML NEB INHALATION SCH ×4 (08:13→20:48)
--- NOTE | 2017-09-16 08:25 | P.PN ---
Subjective Principal diagnosis: Continuing care This is a continue progress note an 82-year-old white male essentially admitted for acute kidney injury with recurrent exacerbation of COPD. The patient actually states that this is the best she's felt in many weeks. He is emulating to go to the bathroom without difficulty at this time. Will continue current regimen of treatment. Appreciate pulmonology input. Objective - Vital Signs Vital signs: Vital Signs Temp 97.5 F L 09/16/17 06:37 Pulse 84 09/16/17 08:13 Resp 16 09/16/17 06:37 BP 171/88 09/16/17 06:37 Pulse Ox 97 09/16/17 06:37 Intake & Output 09/15/17 09/16/17 09/16/17 18:59 06:59 18:59 Intake Total 520 Balance 520 Intake: Oral 520 Other: Voiding Method Urinal # Voids 3 2 - Constitutional General appearance: Absent: average body habitus - EENT Eyes: Absent: abnormal pupil - Respiratory Respiratory: bilateral: diminished, prolonged expiration - Cardiovascular Heart sounds: normal: S1, S2 Abnormal Heart Sounds: Absent: S3 Gallop - Gastrointestinal General gastrointestinal: Present: soft. Absent: tenderness - Psychiatric Psychiatric: Present: A&O x's 3, appropriate affect - Labs CBC & Chem 7: 09/13/17 08:35 09/14/17 11:50 Labs: Abnormal Lab Results - Last 24 Hours (Table) 09/15/17 09/15/17 09/15/17 Range/Units 11:57 17:26 21:02 POC Glucose (mg/dL) 130 H 121 H 211 H (75-99) mg/dL 09/16/17 Range/Units 07:25 POC Glucose (mg/dL) 107 H (75-99) mg/dL Assessment and Plan (1) Kidney failure Current Visit: Yes Status: Acute Code(s): N19 - UNSPECIFIED KIDNEY FAILURE SNOMED Code(s): 33071350 (2) Acute hyperkalemia Current Visit: No Status: Acute Code(s): E87.5 - HYPERKALEMIA SNOMED Code( s): 9483765 (3) Hyperlipidemia Current Visit: No Status: Acute Code(s): E78.5 - HYPERLIPIDEMIA, UNSPECIFIED SNOMED Code(s): 68362284 (4) Hypertension Current Visit: No Status: Acute Code(s): I10 - ESSENTIAL (PRIMARY) HYPERTENSION SNOMED Code(s): 94334682 (5) Hypoxia Current Visit: No Status: Acute Code(s): R09.02 - HYPOXEMIA SNOMED Code(s) : 595660348 Plan: Although his overall prognosis is somewhat guarded secondary to the end-stage nature of his COPD, hopefully we can discharge soon. Anticipate discharge in next 24-48 hours. Check CBC and CMP in a.m. See orders otherwise. Time with Patient: Less than 30
[2017-09-16 08:43] LABS: Anisocytosis Slight; Basophils % (A) 0 %; Eosinophils % (A) 0 %; HCT 30.6 % (39.0-53.0); HGB 9.6 gm/dL (13.0-17.5); Lymphocytes # (A) 0.3 k/uL (1.0-4.8); Lymphocytes % (A) 3 %; MCH 27.1 pg (25.0-35.0); MCHC 31.4 g/dL (31.0-37.0); MCV 86.3 fL (80.0-100.0); Monocytes # (A) 0.5 k/uL (0-1.0); Monocytes % (A) 5 %; Neutrophils # (A) 9.1 k/uL (1.3-7.7); Neutrophils % (A) 91 %; Platelet Count 444 k/uL (150-450); RBC 3.54 m/uL (4.30-5.90); RDW 17.4 % (11.5-15.5)
[2017-09-16 08:59] LABS: Calcium 7.9 mg/dL (8.4-10.2); Potassium 4.6 mmol/L (3.5-5.1)
[2017-09-16] MEDS: ATORVASTATIN 20 MG TAB PO SCH (09:47)
[2017-09-16] MEDS: FAMOTIDINE 20 MG TAB PO SCH (09:47)
[2017-09-16] MEDS: CITALOPRAM HYDROBROMIDE 20 MG TAB PO SCH (09:47)
[2017-09-16] MEDS: INSULIN ASPART 100 UNIT/ML 1 ML 10 ML VIAL SQ SCH ×4 (09:47→21:43)
[2017-09-16] MEDS: TAMSULOSIN 0.4 MG CAP.ER.24H PO SCH ×2 (09:47→21:43)
--- NOTE | 2017-09-16 11:55 | CDI ---
Last Revision, June 2017 Documentation Clarification Form Date: 09/11/2017 From: Kayla Rothman RN, CCDS Admit Date: 09/10/2017 1:59:00 PM Patient Name: Iron Rodríguez Visit Number: [id number] Discharge Date: ATTENTION: The Clinical Documentation Specialists (CDI) and [facility] Coding Staff appreciate your assistance in clarifying documentation. Please respond to the clarification below the line at the bottom and electronically sign. The CDI & [facility] Coding staff will review the response and follow-up if needed. Please note: Queries are made part of the Legal Health Record. If you have any questions, please contact the author of this message via ITS. Dr. Yumiko Lujan History/Risk Factors: COPD, Bladder Cancer, BPH, Clinical Indicators: Admit with complaints of increased weakness and shortness of breath. Noted to have creatinine of 3.5 mg/dL and potassium of 6.5 On admission: BUN 94, Cr 3,50 GFR 15 09/13/17 BUN 45 CR 1.04 GFR: 67 Patients Baseline: CR 1.0 Treatment: IV Fluids Monitor urine output Hold MICHELE inhibitors and Diuretics In order to capture the severity of condition, please clarify if the condition signifies: CKD Stage 1 (GFR > 90) CKD Stage 2 (GFR 60-89) CKD Stage 3 (GFR 30-59) CKD Stage 4 (GFR 15-29) CKD Stage 5 (GFR <15) ESRD Other, please specify _ Unable to determine Please continue to document in your progress notes and discharge summary in order to capture severity of illness and risk of mortality. Include clinical findings that support your diagnosis. MTDD
[2017-09-16 12:28] LABS: Glucose,Whole Blood 122 mg/dL (75-99)
--- NOTE | 2017-09-16 12:58 | P.PN ---
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 The patient has been having multiple hospitalizations for pulmonary complications. During a hospitalization back in July the patient was found to have stenotrophomonas in the bronchioloalveolar lavage that was identified at a time of bronchoscopy. The patient was treated with Bactrim back then. During the course of treatment the patient developed an acute kidney injury that was drug-induced and ultimately he was treated and recovered. Nevertheless he continued to be short of breath and he had a very limited overall performance and functional status due to shortness of breath. He has constant cough and congestion his chest. He also has history of DVT of the lower extremity. He was treated with anticoagulation for quite some time and he was subsequently taken off anticoagulation due to hematuria the patient is also known to have bladder cancer. He does not recall any status where he had pulmonary embolism. The patient came into the hospital because of increased shortness of breath, pain across the left chest which was somewhat pleuritic in nature. No hemoptysis. He has congested and he has constant cough and bronchospasm wheezing related to his advanced COPD. No calf pain or tenderness pain no swelling lower extremities. He is having some lower abdominal pain in addition. He has stooled. No evidence of any GI bleeding. No nausea or vomiting. No diarrhea. No dysuria exam [place]. No hematuria. Urinalysis has not been done. The patient's oral intake has been overall low and the patient was found to have an acute kidney injury on top of his chronic renal failure. His creatinine is up to 3.5 at the time of admission with a BUN of 94. Potassium level was also at 6.1. The patient was treated for his hyperkalemia and repeat level is at 6.1. Note that the patient was given Kayexalate 45 g yesterday and 30 g today. The patient is also on IV fluids at 150 mL of normal saline. No leukocytosis. On 09/12/2088 seeing this patient for a follow-up. The patient was seen yesterday in consultation. He has advanced and and stage COPD. The patient also has had multiple exacerbation of COPD and previous stenotrophomonas infection of the lung. The patient is currently being treated for an acute kidney injury as the patient presented with acute kidney failure secondary to dehydration. Renal function is improving as the patient is being hydrated with IV fluids. Meanwhile, he was having some gastrointestinal complaints and the lipase level was slightly elevated and ultrasound the abdomen was done that came back nonspecific and there was no evidence of any pancreatitis. Although this is suspected based on the elevated lipase level. Also, the patient had a Doppler of the lower extremity that showed no evidence of any DVT. We have not committed to long-term anticoagulation as long as the patient has no Dopplers and clinically is doing better on his less short of breath and the pleurisy has subsided on today's evaluation. Urinalysis came back negative. He is afebrile. He is extremely debilitated secondary to COPD. Pulse ox is around 97 % on 2 L of oxygen nasal cannula. Slightly tachycardic. On 09/13/2017 patient seen in follow-up on medical surgical floor. He reports some improvement in his breathing. Lung sounds are diminished, with expiratory wheezing, patient still has congested nonproductive cough. Not able to expectorate any sputum. His appetite is improving. He still is seeming IV hydration in the form of 0.45 normal saline at a rate of 50 ML per hour. On today's lab work CBC is within normal limits at 8.2, hemoglobin is 9.2, serum sodium is 148, there has been improvement in his renal profile, BUN is down to 45 from 66 and creatinine is at 1.04 down from 1.44. Patient's amylase is now within normal limits, and lipase is trending down, down to 389 from 634. Patient is on 2 L per nasal cannula with O2 sat 96%. He is afebrile, slightly tachycardic with a rate of 106 BPM. Patient continues on combination of nebulized treatments, Symbicort, IV steroids. The patient is seen again today 09/14/2017 in follow-up in the regular medical floor. He is doing better today as compared to yesterday. Still not quite back to his baseline. He continues to utilize the flutter valve and is maintaining good O2 saturations in the mid 90s on 2 L/m per nasal cannula. He is afebrile. Sputum culture reveals no growth. 142, potassium 4.5, creatinine 1.00. He is maintained on DuoNeb's, Symbicort, as Solu-Medrol. On 09/15/2017, patient is doing well and the patient has no specific complaints. He is using the flutter valve which is facilitating respiratory secretions and pulmonary toileting. The patient is not having any worsening shortness of breath. His renal function is normalized and the creatinine is down to 1. No electrode disturbances. No significant abdominal pain. No nausea or vomiting. No diarrhea. He was feeling down and depressed and the patient was started on 20 mg of Celexa yesterday and I told him that this will take some time to improve his overall condition and symptoms of depression. Meanwhile, the patient remains on DuoNeb neb treatments around the clock and he is on IV Solu Medrol and he will be tapered to prednisone burst taper as of tomorrow. Discharge planning is in progress for now. On 09/16/2017 patient seen in follow-up on medical surgical floor. States his breathing continues to improve, still remains congested, able to produce small amounts of light sputum at times, sounds are positive for scattered rhonchi, minimal wheezing. Continues on 2 L per nasal cannula O2 sat at 97%. He is afebrile, hemodynamically stable. He states his appetite is improving. He worsening shortness of breath, is able to ambulate to the bathroom, tolerating activity much better. Sputum culture is negative for any growth. His blood work showed WBC of 10.0, hemoglobin is 9.6, electrolytes are within normal limits, renal profile continues to improve, BUN is 35, creatinine is 0.98. Patient continues on IV steroids, nebulized treatments, Symbicort. Objective - Vital Signs Vital signs: Vital Signs Temp 97.5 F L 09/16/17 06:37 Pulse 84 09/16/17 12:11 Resp 16 09/16/17 08:00 BP 171/88 09/16/17 06:37 Pulse Ox 97 09/16/17 06:37 Intake & Output 09/15/17 09/16/17 09/16/17 18:59 06:59 18:59 Intake Total 520 Balance 520 Intake: Oral 520 Other: Voiding Method Urinal # Voids 3 2 1 - Exam GENERAL EXAM: Alert, pleasant, thin, 82-year-old white male, mildly short of breath at rest, but fairly comfortable HEAD: Normocephalic/atraumatic. EYES: Normal reaction of pupils, equal size. Conjunctiva pink, sclera white. NOSE: Clear with pink turbinates. THROAT: No erythema or exudates. NECK: No masses, no JVD, no thyroid enlargement, no adenopathy. CHEST: No chest wall deformity. Symmetrical expansion. LUNGS: Equal air entry with scattered rhonchi, and minimal wheezes CVS: Regular rate and rhythm, normal S1 and S2, no gallops, no murmurs, no rubs ABDOMEN: Soft, nontender. No hepatosplenomegaly, normal bowel sounds, no guarding or rigidity. EXTREMITIES: No clubbing, no edema, no cyanosis, 2+ pulses and upper and lower extremities. MUSCULOSKELETAL: Muscle strength and tone normal. SPINE: No scoliosis or deformity SKIN: No rashes CENTRAL NERVOUS SYSTEM: Alert and oriented -3. No focal deficits, tone is normal in all 4 extremities. PSYCHIATRIC: Alert and oriented -3. Appropriate affect. Intact judgment and insight. - Labs CBC & Chem 7: 09/16/17 07:59 09/16/17 07:59 Labs: Abnormal Lab Results - Last 24 Hours (Table) 09/15/17 09/15/17 09/16/17 Range/Units 17:26 21:02 07:25 RBC (4.30-5.90) m/uL Hgb (13.0-17.5) gm/dL Hct (39.0-53.0) % RDW (11.5-15.5) % Neutrophils # (1.3-7.7) k/uL Lymphocytes # (1.0-4.8) k/uL BUN (9-20) mg/dL POC Glucose (mg/dL) 121 H 211 H 107 H (75-99) mg/dL Calcium (8.4-10.2) mg/dL 09/16/17 09/16/17 09/16/17 Range/Units 07:59 07:59 12:08 RBC 3.54 L (4.30-5.90) m/uL Hgb 9.6 L (13.0-17.5) gm/dL Hct 30.6 L (39.0-53.0) % RDW 17.4 H (11.5-15.5) % Neutrophils # 9.1 H (1.3-7.7) k/uL Lymphocytes # 0.3 L (1.0-4.8) k/uL BUN 35 H (9-20) mg/dL POC Glucose (mg/dL) 122 H (75-99) mg/dL Calcium 7.9 L (8.4-10.2) mg/dL Assessment and Plan Plan: Assessment: - Acute COPD exacerbation completed by tracheobronchitis, and the patient is a clear chest x-ray and there is no evidence of any acute pulmonary infiltration. Atelectatic change in lung bases are seen. Clinically the patient is improving and the patient is less short of breath compared to yesterday. Pleurisy is completely subsided on today's evaluation. Doppler of the lower extremities negative. No clinical evidence of pulmonary embolism and based on that this diagnosis was not pursued any further - Advanced steroid dependent COPD, with a baseline FEV1 of 33% of predicted - Acute kidney injury, likely secondary to intravascular volume depletion and dehydration and the creatinine is up to 3.5, and the patient was resuscitated IV fluids and there has been improvement in the patient's Renal function and creatinine is down to 0.98 - Hyperkalemia, possibly related to acute kidney injury . Patient is also on potassium supplements and lisinopril which is probably contributing to the acute kidney injury. Patient's potassium level improved since down to 4.6 - Hypernatremia, serum sodium is 148, probably related to decreased free water intake, resolved, today's sodium is 140 - History of nicotine dependence - hyperlipidemia - Hypertension - Neoplasm of bladder - History of deep venous thrombosis, history of currently on no anticoagulants -Stenotrophomonas l tracheobronchitis treated in 2018 -Abdominal pain, under investigation. Patient may have an underlying mild component of pancreatitis. THE ABDOMEN WAS NEGATIVE PLAN Patient is improving, we'll decrease the steroids down to 40 mg every 12 hours. Renal profile continues to improve, patient's oral intake is improving, appetite is improving. Remains somewhat congested, at times able to bring up sputum. Activity as tolerated. Continue nebulized treatments. Continue Symbicort. Discharge planning is in progress for possible discharge in next 24- 48 hours I performed a history & physical examination of the patient and discussed their management with my nurse practitioner, Dora Abarca. I reviewed the nurse practitioner's note and agree with the documented findings and plan of care. Lung sounds are positive for diminished air entry bilaterally, with minimal expiratory wheezing and scattered rhonchi. The findings and the impression was discussed with the patient. I attest to the documentation by the nurse practitioner. Time with Patient: Less than 30
[2017-09-16 17:22] LABS: Glucose,Whole Blood 186 mg/dL (75-99)
[2017-09-16 21:13] LABS: Glucose,Whole Blood 184 mg/dL (75-99)
[2017-09-17] MEDS: IPRATROPIUM-ALBUTEROL 3 ML NEB INHALATION SCH ×4 (06:59→20:31)
[2017-09-17] MEDS: SYMBICORT 160-4.5 MCG INHALER INHALATION SCH ×2 (06:59→20:31)
[2017-09-17 07:09] LABS: Glucose,Whole Blood 111 mg/dL (75-99)
[2017-09-17] MEDS: TAMSULOSIN 0.4 MG CAP.ER.24H PO SCH ×2 (08:21→21:56)
[2017-09-17] MEDS: ATORVASTATIN 20 MG TAB PO SCH (08:21)
[2017-09-17] MEDS: FAMOTIDINE 20 MG TAB PO SCH (08:21)
[2017-09-17] MEDS: CITALOPRAM HYDROBROMIDE 20 MG TAB PO SCH (08:21)
[2017-09-17] MEDS: INSULIN ASPART 100 UNIT/ML 1 ML 10 ML VIAL SQ SCH ×4 (08:21→21:56)
[2017-09-17] MEDS: methylPREDNISolone SOD SUCCI 40 MG/ML 1 ML VIAL IV SCH ×2 (08:22→21:56)
[2017-09-17 09:07] LABS: Anion Gap 8 mmol/L; Calcium 7.7 mg/dL (8.4-10.2); Carbon Dioxide 25 mmol/L (22-30); Chloride 107 mmol/L (98-107); Glucose 123 mg/dL (74-99); Sodium 140 mmol/L (137-145); Total Bilirubin 0.5 mg/dL (0.2-1.3)
[2017-09-17 09:13] LABS: ALT 51 U/L (21-72); AST 51 U/L (17-59); Blood Urea Nitrogen 39 mg/dL (9-20); Potassium 5.4 mmol/L (3.5-5.1)
[2017-09-17 09:14] LABS: Alkaline Phosphatase 42 U/L (38-126); Total Protein 5.8 g/dL (6.3-8.2)
[2017-09-17 11:59] LABS: Anisocytosis Slight; HCT 28.5 % (39.0-53.0); HGB 9.6 gm/dL (13.0-17.5); MCH 28.8 pg (25.0-35.0); MCHC 33.8 g/dL (31.0-37.0); MCV 85.1 fL (80.0-100.0); Mean Platelet Volume 7.6; Platelet Count 370 k/uL (150-450); RBC 3.35 m/uL (4.30-5.90); RDW 17.6 % (11.5-15.5); WBC 12.2 k/uL (3.8-10.6)
[2017-09-17 12:38] LABS: Glucose,Whole Blood 105 mg/dL (75-99)
--- NOTE | 2017-09-17 14:00 | P.PN ---
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 The patient has been having multiple hospitalizations for pulmonary complications. During a hospitalization back in July the patient was found to have stenotrophomonas in the bronchioloalveolar lavage that was identified at a time of bronchoscopy. The patient was treated with Bactrim back then. During the course of treatment the patient developed an acute kidney injury that was drug-induced and ultimately he was treated and recovered. Nevertheless he continued to be short of breath and he had a very limited overall performance and functional status due to shortness of breath. He has constant cough and congestion his chest. He also has history of DVT of the lower extremity. He was treated with anticoagulation for quite some time and he was subsequently taken off anticoagulation due to hematuria the patient is also known to have bladder cancer. He does not recall any status where he had pulmonary embolism. The patient came into the hospital because of increased shortness of breath, pain across the left chest which was somewhat pleuritic in nature. No hemoptysis. He has congested and he has constant cough and bronchospasm wheezing related to his advanced COPD. No calf pain or tenderness pain no swelling lower extremities. He is having some lower abdominal pain in addition. He has stooled. No evidence of any GI bleeding. No nausea or vomiting. No diarrhea. No dysuria exam [place]. No hematuria. Urinalysis has not been done. The patient's oral intake has been overall low and the patient was found to have an acute kidney injury on top of his chronic renal failure. His creatinine is up to 3.5 at the time of admission with a BUN of 94. Potassium level was also at 6.1. The patient was treated for his hyperkalemia and repeat level is at 6.1. Note that the patient was given Kayexalate 45 g yesterday and 30 g today. The patient is also on IV fluids at 150 mL of normal saline. No leukocytosis. On 09/12/2088 seeing this patient for a follow-up. The patient was seen yesterday in consultation. He has advanced and and stage COPD. The patient also has had multiple exacerbation of COPD and previous stenotrophomonas infection of the lung. The patient is currently being treated for an acute kidney injury as the patient presented with acute kidney failure secondary to dehydration. Renal function is improving as the patient is being hydrated with IV fluids. Meanwhile, he was having some gastrointestinal complaints and the lipase level was slightly elevated and ultrasound the abdomen was done that came back nonspecific and there was no evidence of any pancreatitis. Although this is suspected based on the elevated lipase level. Also, the patient had a Doppler of the lower extremity that showed no evidence of any DVT. We have not committed to long-term anticoagulation as long as the patient has no Dopplers and clinically is doing better on his less short of breath and the pleurisy has subsided on today's evaluation. Urinalysis came back negative. He is afebrile. He is extremely debilitated secondary to COPD. Pulse ox is around 97 % on 2 L of oxygen nasal cannula. Slightly tachycardic. On 09/13/2017 patient seen in follow-up on medical surgical floor. He reports some improvement in his breathing. Lung sounds are diminished, with expiratory wheezing, patient still has congested nonproductive cough. Not able to expectorate any sputum. His appetite is improving. He still is seeming IV hydration in the form of 0.45 normal saline at a rate of 50 ML per hour. On today's lab work CBC is within normal limits at 8.2, hemoglobin is 9.2, serum sodium is 148, there has been improvement in his renal profile, BUN is down to 45 from 66 and creatinine is at 1.04 down from 1.44. Patient's amylase is now within normal limits, and lipase is trending down, down to 389 from 634. Patient is on 2 L per nasal cannula with O2 sat 96%. He is afebrile, slightly tachycardic with a rate of 106 BPM. Patient continues on combination of nebulized treatments, Symbicort, IV steroids. The patient is seen again today 09/14/2017 in follow-up in the regular medical floor. He is doing better today as compared to yesterday. Still not quite back to his baseline. He continues to utilize the flutter valve and is maintaining good O2 saturations in the mid 90s on 2 L/m per nasal cannula. He is afebrile. Sputum culture reveals no growth. 142, potassium 4.5, creatinine 1.00. He is maintained on DuoNeb's, Symbicort, as Solu-Medrol. On 09/15/2017, patient is doing well and the patient has no specific complaints. He is using the flutter valve which is facilitating respiratory secretions and pulmonary toileting. The patient is not having any worsening shortness of breath. His renal function is normalized and the creatinine is down to 1. No electrode disturbances. No significant abdominal pain. No nausea or vomiting. No diarrhea. He was feeling down and depressed and the patient was started on 20 mg of Celexa yesterday and I told him that this will take some time to improve his overall condition and symptoms of depression. Meanwhile, the patient remains on DuoNeb neb treatments around the clock and he is on IV Solu Medrol and he will be tapered to prednisone burst taper as of tomorrow. Discharge planning is in progress for now. On 09/16/2017 patient seen in follow-up on medical surgical floor. States his breathing continues to improve, still remains congested, able to produce small amounts of light sputum at times, sounds are positive for scattered rhonchi, minimal wheezing. Continues on 2 L per nasal cannula O2 sat at 97%. He is afebrile, hemodynamically stable. He states his appetite is improving. He worsening shortness of breath, is able to ambulate to the bathroom, tolerating activity much better. Sputum culture is negative for any growth. His blood work showed WBC of 10.0, hemoglobin is 9.6, electrolytes are within normal limits, renal profile continues to improve, BUN is 35, creatinine is 0.98. Patient continues on IV steroids, nebulized treatments, Symbicort. On 09/17/2017 patient seen in follow-up on medical surgical floor. Denies any acute distress, lung sounds are positive for some scattered rhonchi, with a few wheezes. Renal profile continues to improve, creatinine is 0.78, BUN is 39, serum potassium is 5.4. Nephrology is following. Patient states his appetite is improving, tolerating oral intake. Vital signs are stable, patient is afebrile. 2 L per nasal cannula his pulse ox is 98%. Sputum culture is negative. On today's lab work WBCs 12.2, hemoglobin is 9.6. Patient has been ambulating within the room, tolerating activity well. No specific complaints this morning. Objective - Vital Signs Vital signs: Vital Signs Temp 97.2 F L 09/17/17 07:00 Pulse 94 09/17/17 11:09 Resp 16 09/17/17 08:00 BP 160/87 09/17/17 07:00 Pulse Ox 98 09/17/17 07:01 Intake & Output 09/16/17 09/17/17 09/17/17 18:59 06:59 18:59 Other: # Voids 1 0 - Exam GENERAL EXAM: Alert, pleasant, thin, 82-year-old white male, mildly short of breath at rest, but fairly comfortable HEAD: Normocephalic/atraumatic. EYES: Normal reaction of pupils, equal size. Conjunctiva pink, sclera white. NOSE: Clear with pink turbinates. THROAT: No erythema or exudates. NECK: No masses, no JVD, no thyroid enlargement, no adenopathy. CHEST: No chest wall deformity. Symmetrical expansion. LUNGS: Equal air entry with scattered rhonchi, and minimal wheezes CVS: Regular rate and rhythm, normal S1 and S2, no gallops, no murmurs, no rubs ABDOMEN: Soft, nontender. No hepatosplenomegaly, normal bowel sounds, no guarding or rigidity. EXTREMITIES: No clubbing, no edema, no cyanosis, 2+ pulses and upper and lower extremities. MUSCULOSKELETAL: Muscle strength and tone normal. SPINE: No scoliosis or deformity SKIN: No rashes CENTRAL NERVOUS SYSTEM: Alert and oriented -3. No focal deficits, tone is normal in all 4 extremities. PSYCHIATRIC: Alert and oriented -3. Appropriate affect. Intact judgment and insight. - Labs CBC & Chem 7: 09/17/17 11:10 09/17/17 08:23 Labs: Abnormal Lab Results - Last 24 Hours (Table) 09/16/17 09/16/17 09/17/17 Range/Units 17:05 21:12 07:06 WBC (3.8-10.6) k/uL RBC (4.30-5.90) m/uL Hgb (13.0-17.5) gm/dL Hct (39.0-53.0) % RDW (11.5-15.5) % Potassium (3.5-5.1) mmol/L BUN (9-20) mg/dL Glucose (74-99) mg/dL POC Glucose (mg/dL) 186 H 184 H 111 H (75-99) mg/dL Calcium (8.4-10.2) mg/dL Total Protein (6.3-8.2) g/dL Albumin (3.5-5.0) g/dL 09/17/17 09/17/17 09/17/17 Range/Units 08:23 11:10 12:28 WBC 12.2 H (3.8-10.6) k/uL RBC 3.35 L (4.30-5.90) m/uL Hgb 9.6 L (13.0-17.5) gm/dL Hct 28.5 L (39.0-53.0) % RDW 17.6 H (11.5-15.5) % Potassium 5.4 H (3.5-5.1) mmol/L BUN 39 H (9-20) mg/dL Glucose 123 H (74-99) mg/dL POC Glucose (mg/dL) 105 H (75-99) mg/dL Calcium 7.7 L (8.4-10.2) mg/dL Total Protein 5.8 L (6.3-8.2) g/dL Albumin 3.0 L (3.5-5.0) g/dL Assessment and Plan Plan: Assessment: - Acute COPD exacerbation completed by tracheobronchitis, and the patient is a clear chest x-ray and there is no evidence of any acute pulmonary infiltration. Atelectatic change in lung bases are seen. Clinically the patient is improving and the patient is less short of breath compared to yesterday. Pleurisy is completely subsided on today's evaluation. Doppler of the lower extremities negative. No clinical evidence of pulmonary embolism and based on that this diagnosis was not pursued any further - Advanced steroid dependent COPD, with a baseline FEV1 of 33% of predicted - Acute kidney injury, likely secondary to intravascular volume depletion and dehydration and the creatinine is up to 3.5, and the patient was resuscitated IV fluids and there has been improvement in the patient's Renal function and creatinine is down to 0.98 - Hyperkalemia, possibly related to acute kidney injury . Patient is also on potassium supplements and lisinopril which is probably contributing to the acute kidney injury. Patient's potassium level improved since down to 4.6 - Hypernatremia, serum sodium is 148, probably related to decreased free water intake, resolved, today's sodium is 140 - History of nicotine dependence - hyperlipidemia - Hypertension - Neoplasm of bladder - History of deep venous thrombosis, history of currently on no anticoagulants -Stenotrophomonas l tracheobronchitis treated in 2018 -Abdominal pain, under investigation. Patient may have an underlying mild component of pancreatitis. THE ABDOMEN WAS NEGATIVE PLAN Patient remains stable from pulmonary standpoint, renal profile is improving. Patient is tolerating oral intake. Tolerating activity, vital signs are stable. From pulmonary standpoint patient could be discharged home today on prednisone taper, and his maintenance inhalers and nebulizer treatments. Follow -up with Dr. Chavarria in the office in 7-10 days. I performed a history & physical examination of the patient and discussed their management with my nurse practitioner, Dora Abarca. I reviewed the nurse practitioner's note and agree with the documented findings and plan of care. Lung sounds are positive for diminished air entry bilaterally, with minimal expiratory wheezing and scattered rhonchi. The findings and the impression was discussed with the patient. I attest to the documentation by the nurse practitioner. Time with Patient: Less than 30
[2017-09-17] MEDS: MAGNESIUM HYDROXIDE 2,400 MG/10 ML CUP PO PRN (16:08)
[2017-09-17 17:31] LABS: Glucose,Whole Blood 122 mg/dL (75-99)
--- NOTE | 2017-09-17 20:26 | P.PN ---
Subjective Principal diagnosis: Continuing CARE/COPD. This is a continue progress note on 8-year-old white male a centimeter for acute kidney injury with recurrent exacerbation of COPD. The patient is doing quite well. He seems to be ablating without difficulty. Appetite seems to be nominal. The and daughter are here with him who state that his mood seems to be improving with the start of an antidepressant. Objective - Vital Signs Vital signs: Vital Signs Temp 97.7 F 09/17/17 15:00 Pulse 92 09/17/17 15:48 Resp 16 09/17/17 16:00 BP 148/83 09/17/17 15:00 Pulse Ox 97 09/17/17 15:00 Intake & Output 09/17/17 09/17/17 09/18/17 06:59 18:59 06:59 Other: # Voids 0 2 0 # Bowel Movements 0 - Constitutional General appearance: Present: average body habitus - EENT Eyes: Absent: abnormal pupil - Respiratory Respiratory: bilateral: diminished - Cardiovascular Rhythm: regular Heart sounds: normal: S1, S2 Abnormal Heart Sounds: Absent: S3 Gallop - Gastrointestinal General gastrointestinal: Present: soft. Absent: tenderness - Neurologic Neurologic: Present: CNII-XII intact - Musculoskeletal Musculoskeletal: Present: gait normal - Labs CBC & Chem 7: 09/17/17 11:10 09/17/17 08:23 Labs: Abnormal Lab Results - Last 24 Hours (Table) 09/16/17 09/17/17 09/17/17 Range/Units 21:12 07:06 08:23 WBC (3.8-10.6) k/uL RBC (4.30-5.90) m/uL Hgb (13.0-17.5) gm/dL Hct (39.0-53.0) % RDW (11.5-15.5) % Potassium 5.4 H (3.5-5.1) mmol/L BUN 39 H (9-20) mg/dL Glucose 123 H (74-99) mg/dL POC Glucose (mg/dL) 184 H 111 H (75-99) mg/dL Calcium 7.7 L (8.4-10.2) mg/dL Total Protein 5.8 L (6.3-8.2) g/dL Albumin 3.0 L (3.5-5.0) g/dL 09/17/17 09/17/17 09/17/17 Range/Units 11:10 12:28 17:22 WBC 12.2 H (3.8-10.6) k/uL RBC 3.35 L (4.30-5.90) m/uL Hgb 9.6 L (13.0-17.5) gm/dL Hct 28.5 L (39.0-53.0) % RDW 17.6 H (11.5-15.5) % Potassium (3.5-5.1) mmol/L BUN (9-20) mg/dL Glucose (74-99) mg/dL POC Glucose (mg/dL) 105 H 122 H (75-99) mg/dL Calcium (8.4-10.2) mg/dL Total Protein (6.3-8.2) g/dL Albumin (3.5-5.0) g/dL Assessment and Plan (1) Kidney failure Current Visit: Yes Status: Acute Code(s): N19 - UNSPECIFIED KIDNEY FAILURE SNOMED Code(s): 39906571 (2) Acute hyperkalemia Current Visit: No Status: Acute Code(s): E87.5 - HYPERKALEMIA SNOMED Code( s): 8885813 (3) Hyperlipidemia Current Visit: No Status: Acute Code(s): E78.5 - HYPERLIPIDEMIA, UNSPECIFIED SNOMED Code(s): 92363890 (4) Hypertension Current Visit: No Status: Acute Code(s): I10 - ESSENTIAL (PRIMARY) HYPERTENSION SNOMED Code(s): 25557223 (5) Hypoxia Current Visit: No Status: Acute Code(s): R09.02 - HYPOXEMIA SNOMED Code(s) : 131327584 Plan: Continue current regimen of treatment. Anticipate discharge in next 24 hours. New. Prognosis is significantly improved. See orders otherwise.
[2017-09-17 20:39] LABS: Glucose,Whole Blood 105 mg/dL (75-99)
--- NOTE | 2017-09-17 21:16 | PN ---
PROGRESS NOTE Patient is seen for followup for acute kidney injury. His renal function has completely resolved with creatinine now down to 0.78. He was at 3.5 mg/dL on initial admission. The patient has severe COPD. He was hydrated. His potassium is mildly elevated at 5.4 today. He has had good urine output. EXAMINATION: Blood pressure is 148/83, heart rate 90 per minute. Patient is afebrile. HEART: S1, S2. LUNGS: Bilateral breath sounds are heard. Abdomen is soft, nontender. Lower extremities show trace edema bilaterally. SYRUP BLENDER is grossly intact. LABS: Show sodium 140, potassium 5.4, chloride 107, BUN 39, serum creatinine 0.78. Hemoglobin 9.6 g/dL. ASSESSMENT: 1. Acute kidney injury, prerenal, currently resolved. 2. No evidence of chronic kidney disease. 3. Hyperkalemia initially associated with acute kidney injury; however, now the renal function has improved significantly. Potassium is mildly elevated at 5.4. Need to rule out underlying urine retention. Blood sugar is not significantly high. 4. Severe chronic obstructive pulmonary disease, currently with exacerbation, currently improved. PLAN: Check a postvoid residual, maintain good oral intake. Continue with the Flomax. MMODL / IJN: [id number] /
[2017-09-18 06:28] VITALS: BP 163/91; PULSE 90; RESP 16; TEMP 97.1
[2017-09-18 06:49] LABS: Glucose,Whole Blood 110 mg/dL (75-99)
[2017-09-18] MEDS: INSULIN ASPART 100 UNIT/ML 1 ML 10 ML VIAL SQ SCH (06:53)
[2017-09-18] MEDS: SYMBICORT 160-4.5 MCG INHALER INHALATION SCH (07:15)
[2017-09-18] MEDS: IPRATROPIUM-ALBUTEROL 3 ML NEB INHALATION SCH (07:15)
--- NOTE | 2017-09-18 08:08 | P.DS ---
Providers Date of admission: 09/10/17 13:59 Attending physician: Lobo Elizabeth Consults: 09/10/17 16:36 Consult Physician Routine Consulting Provider: Yumiko Lujan Consult Reason/Comments: ACute renal failure Do you want consulting provider notified?: Yes 09/10/17 19:46 Consult Physician Routine Consulting Provider: Rey Chavarria Consult Reason/Comments: Known patient, COPD maintenance Do you want consulting provider notified?: Yes, Notify in am Primary care physician: Lobo Elizabeth - Discharge Diagnosis(es) (1) Kidney failure Current Visit: Yes Status: Acute (2) Acute hyperkalemia Current Visit: No Status: Acute (3) Hyperlipidemia Current Visit: No Status: Acute (4) Hypertension Current Visit: No Status: Acute (5) Hypoxia Current Visit: No Status: Acute Hospital Course: This is a discharge summary 82-year-old white male essentially admitted for acute kidney injury with COPD exacerbation. I suspect that the patient will be O2 dependent with steroid dependency. The patient was stabilized from pulmonology and nephrology perspective after significant medical treatment as seen in the chart. The patient is now almost back to baseline. He'll be discharged in stable condition to follow-up with me in one week. Prednisone taper will be started and but prognosis is guarded secondary to advancing age and multiple comorbidities. The patient is emulating almost to baseline and voiding without difficulties on discharge. Patient Condition at Discharge: Serious Plan - Discharge Summary Discharge Rx Participant: No New Discharge Prescriptions: New predniSONE 10 mg PO DAILY 16 Days #40 tab Citalopram Hydrobromide [CeleXA] 20 mg PO DAILY #30 tab Continue Albuterol Sulfate [Proair Hfa] 2 puff INHALATION RT-Q6H PRN PRN Reason: Shortness Of Breath Simvastatin [Zocor] 40 mg PO DAILY Ipratropium-Albuterol Nebulize [Duoneb 0.5 mg-3 mg/3 ml Soln] 3 ml INHALATION RT-QID predniSONE 5 mg PO DAILY Fluticasone/Vilanterol [Breo Ellipta 200-25 Mcg INH] 1 puff INHALATION RT- DAILY Tamsulosin HCl [Flomax] 0.4 mg PO BID Potassium Chloride ER [K-Dur 20] 20 meq PO DAILY Lisinopril-Hctz 20-12.5 mg [Zestoretic 20-12.5] 1 tab PO DAILY Furosemide [Lasix] 20 mg PO DAILY Discharge Medication List Albuterol Sulfate [Proair Hfa] 2 puff INHALATION RT-Q6H PRN 07/10/15 [History] Simvastatin [Zocor] 40 mg PO DAILY 07/10/15 [History] Ipratropium-Albuterol Nebulize [Duoneb 0.5 mg-3 mg/3 ml Soln] 3 ml INHALATION RT -QID 07/11/15 [History] Fluticasone/Vilanterol [Breo Ellipta 200-25 Mcg INH] 1 puff INHALATION RT-DAILY 10/05/16 [History] predniSONE 5 mg PO DAILY 10/05/16 [History] Tamsulosin HCl [Flomax] 0.4 mg PO BID 06/06/17 [History] Furosemide [Lasix] 20 mg PO DAILY 08/16/17 [History] Lisinopril-Hctz 20-12.5 mg [Zestoretic 20-12.5] 1 tab PO DAILY 08/16/17 [History ] Potassium Chloride ER [K-Dur 20] 20 meq PO DAILY 08/16/17 [History] predniSONE 10 mg PO DAILY 16 Days #40 tab 09/17/17 [Rx] Citalopram Hydrobromide [CeleXA] 20 mg PO DAILY #30 tab 09/18/17 [Rx] Follow up Appointment(s)/Referral(s): Rey Chavarria DO [Doctor of Osteopathic Medicine] - 1 Week [facility] Visiting Nurse, [NON-STAFF] - Lobo Elizabeth MD [Primary Care Provider] - 1 Week Patient Instructions/Handouts: Acute Kidney Injury (DC), COPD (Chronic Obstructive Pulmonary Disease) (DC) Activity/Diet/Wound Care/Special Instructions: Low fat diet. Activity as tolerated, change position every 2 hours while awake. Stay of pressure ulcer.
[2017-09-18] MEDS: methylPREDNISolone SOD SUCCI 40 MG/ML 1 ML VIAL IV SCH (08:30)
[2017-09-18] MEDS: ATORVASTATIN 20 MG TAB PO SCH (08:31)
[2017-09-18] MEDS: TAMSULOSIN 0.4 MG CAP.ER.24H PO SCH (08:31)
[2017-09-18] MEDS: FAMOTIDINE 20 MG TAB PO SCH (08:31)
[2017-09-18] MEDS: CITALOPRAM HYDROBROMIDE 20 MG TAB PO SCH (08:31)
--- NOTE | 2017-09-18 10:53 | P.PN ---
Subjective Progress Note Date: 09/18/17 Principal diagnosis: Acute COPD exacerbation, tracheobronchitis 82-year-old male patient with advanced oxygen-dependent COPD with chronic hypoxic and steroid dependent respiratory failure and the patient has an FEV1 of 33% of predicted. The patient has been having multiple hospitalizations for pulmonary complications. During a hospitalization back in July the patient was found to have stenotrophomonas in the bronchioloalveolar lavage that was identified at a time of bronchoscopy. The patient was treated with Bactrim back then. During the course of treatment the patient developed an acute kidney injury that was drug-induced and ultimately he was treated and recovered. Nevertheless he continued to be short of breath and he had a very limited overall performance and functional status due to shortness of breath. He has constant cough and congestion his chest. He also has history of DVT of the lower extremity. He was treated with anticoagulation for quite some time and he was subsequently taken off anticoagulation due to hematuria the patient is also known to have bladder cancer. He does not recall any status where he had pulmonary embolism. The patient came into the hospital because of increased shortness of breath, pain across the left chest which was somewhat pleuritic in nature. No hemoptysis. He has congested and he has constant cough and bronchospasm wheezing related to his advanced COPD. No calf pain or tenderness pain no swelling lower extremities. He is having some lower abdominal pain in addition. He has stooled. No evidence of any GI bleeding. No nausea or vomiting. No diarrhea. No dysuria exam [place]. No hematuria. Urinalysis has not been done. The patient's oral intake has been overall low and the patient was found to have an acute kidney injury on top of his chronic renal failure. His creatinine is up to 3.5 at the time of admission with a BUN of 94. Potassium level was also at 6.1. The patient was treated for his hyperkalemia and repeat level is at 6.1. Note that the patient was given Kayexalate 45 g yesterday and 30 g today. The patient is also on IV fluids at 150 mL of normal saline. No leukocytosis. On 09/12/2088 seeing this patient for a follow-up. The patient was seen yesterday in consultation. He has advanced and and stage COPD. The patient also has had multiple exacerbation of COPD and previous stenotrophomonas infection of the lung. The patient is currently being treated for an acute kidney injury as the patient presented with acute kidney failure secondary to dehydration. Renal function is improving as the patient is being hydrated with IV fluids. Meanwhile, he was having some gastrointestinal complaints and the lipase level was slightly elevated and ultrasound the abdomen was done that came back nonspecific and there was no evidence of any pancreatitis. Although this is suspected based on the elevated lipase level. Also, the patient had a Doppler of the lower extremity that showed no evidence of any DVT. We have not committed to long-term anticoagulation as long as the patient has no Dopplers and clinically is doing better on his less short of breath and the pleurisy has subsided on today's evaluation. Urinalysis came back negative. He is afebrile. He is extremely debilitated secondary to COPD. Pulse ox is around 97 % on 2 L of oxygen nasal cannula. Slightly tachycardic. On 09/13/2017 patient seen in follow-up on medical surgical floor. He reports some improvement in his breathing. Lung sounds are diminished, with expiratory wheezing, patient still has congested nonproductive cough. Not able to expectorate any sputum. His appetite is improving. He still is seeming IV hydration in the form of 0.45 normal saline at a rate of 50 ML per hour. On today's lab work CBC is within normal limits at 8.2, hemoglobin is 9.2, serum sodium is 148, there has been improvement in his renal profile, BUN is down to 45 from 66 and creatinine is at 1.04 down from 1.44. Patient's amylase is now within normal limits, and lipase is trending down, down to 389 from 634. Patient is on 2 L per nasal cannula with O2 sat 96%. He is afebrile, slightly tachycardic with a rate of 106 BPM. Patient continues on combination of nebulized treatments, Symbicort, IV steroids. The patient is seen again today 09/14/2017 in follow-up in the regular medical floor. He is doing better today as compared to yesterday. Still not quite back to his baseline. He continues to utilize the flutter valve and is maintaining good O2 saturations in the mid 90s on 2 L/m per nasal cannula. He is afebrile. Sputum culture reveals no growth. 142, potassium 4.5, creatinine 1.00. He is maintained on DuoNeb's, Symbicort, as Solu-Medrol. On 09/15/2017, patient is doing well and the patient has no specific complaints. He is using the flutter valve which is facilitating respiratory secretions and pulmonary toileting. The patient is not having any worsening shortness of breath. His renal function is normalized and the creatinine is down to 1. No electrode disturbances. No significant abdominal pain. No nausea or vomiting. No diarrhea. He was feeling down and depressed and the patient was started on 20 mg of Celexa yesterday and I told him that this will take some time to improve his overall condition and symptoms of depression. Meanwhile, the patient remains on DuoNeb neb treatments around the clock and he is on IV Solu Medrol and he will be tapered to prednisone burst taper as of tomorrow. Discharge planning is in progress for now. On 09/16/2017 patient seen in follow-up on medical surgical floor. States his breathing continues to improve, still remains congested, able to produce small amounts of light sputum at times, sounds are positive for scattered rhonchi, minimal wheezing. Continues on 2 L per nasal cannula O2 sat at 97%. He is afebrile, hemodynamically stable. He states his appetite is improving. He worsening shortness of breath, is able to ambulate to the bathroom, tolerating activity much better. Sputum culture is negative for any growth. His blood work showed WBC of 10.0, hemoglobin is 9.6, electrolytes are within normal limits, renal profile continues to improve, BUN is 35, creatinine is 0.98. Patient continues on IV steroids, nebulized treatments, Symbicort. On 09/17/2017 patient seen in follow-up on medical surgical floor. Denies any acute distress, lung sounds are positive for some scattered rhonchi, with a few wheezes. Renal profile continues to improve, creatinine is 0.78, BUN is 39, serum potassium is 5.4. Nephrology is following. Patient states his appetite is improving, tolerating oral intake. Vital signs are stable, patient is afebrile. 2 L per nasal cannula his pulse ox is 98%. Sputum culture is negative. On today's lab work WBCs 12.2, hemoglobin is 9.6. Patient has been ambulating within the room, tolerating activity well. No specific complaints this morning. On 09/18/2017 patient seen in follow-up, doing very well, denies any worsening dyspnea. Vital signs are stable, patient is afebrile. He is on 2 L per nasal cannula with O2 sat 97%. Lung sounds are positive for a few scattered wheezes, with some scattered rhonchi. Patient is at his baseline. He has been ambulating, tolerating activity well. No acute events overnight, from pulmonary standpoint patient is stable for discharge home today. Follow-up with Dr. Chavarria in the office in one week Objective - Vital Signs Vital signs: Vital Signs Temp 97.1 F L 09/18/17 06:28 Pulse 90 09/18/17 07:27 Resp 16 09/18/17 06:28 BP 163/91 09/18/17 06:28 Pulse Ox 97 09/18/17 06:28 Intake & Output 09/17/17 09/18/17 09/18/17 18:59 06:59 18:59 Intake Total 200 Output Total 833 Balance -833 200 Intake: Oral 200 Output: Post Void Residual 833 Other: # Voids 2 3 # Bowel Movements 0 - Exam GENERAL EXAM: Alert, pleasant, thin, 82-year-old white male, mildly short of breath at rest, but fairly comfortable HEAD: Normocephalic/atraumatic. EYES: Normal reaction of pupils, equal size. Conjunctiva pink, sclera white. NOSE: Clear with pink turbinates. THROAT: No erythema or exudates. NECK: No masses, no JVD, no thyroid enlargement, no adenopathy. CHEST: No chest wall deformity. Symmetrical expansion. LUNGS: Equal air entry with scattered rhonchi, and minimal wheezes CVS: Regular rate and rhythm, normal S1 and S2, no gallops, no murmurs, no rubs ABDOMEN: Soft, nontender. No hepatosplenomegaly, normal bowel sounds, no guarding or rigidity. EXTREMITIES: No clubbing, no edema, no cyanosis, 2+ pulses and upper and lower extremities. MUSCULOSKELETAL: Muscle strength and tone normal. SPINE: No scoliosis or deformity SKIN: No rashes CENTRAL NERVOUS SYSTEM: Alert and oriented -3. No focal deficits, tone is normal in all 4 extremities. PSYCHIATRIC: Alert and oriented -3. Appropriate affect. Intact judgment and insight. - Labs CBC & Chem 7: 09/17/17 11:10 09/17/17 08:23 Labs: Abnormal Lab Results - Last 24 Hours (Table) 09/17/17 09/17/17 09/17/17 Range/Units 11:10 12:28 17:22 WBC 12.2 H (3.8-10.6) k/uL RBC 3.35 L (4.30-5.90) m/uL Hgb 9.6 L (13.0-17.5) gm/dL Hct 28.5 L (39.0-53.0) % RDW 17.6 H (11.5-15.5) % POC Glucose (mg/dL) 105 H 122 H (75-99) mg/dL 09/17/17 09/18/17 Range/Units 20:38 06:47 WBC (3.8-10.6) k/uL RBC (4.30-5.90) m/uL Hgb (13.0-17.5) gm/dL Hct (39.0-53.0) % RDW (11.5-15.5) % POC Glucose (mg/dL) 105 H 110 H (75-99) mg/dL Assessment and Plan Plan: Assessment: - Acute COPD exacerbation completed by tracheobronchitis, and the patient is a clear chest x-ray and there is no evidence of any acute pulmonary infiltration. Atelectatic change in lung bases are seen. Clinically the patient is improving and the patient is less short of breath compared to yesterday. Pleurisy is completely subsided on today's evaluation. Doppler of the lower extremities negative. No clinical evidence of pulmonary embolism and based on that this diagnosis was not pursued any further - Advanced steroid dependent COPD, with a baseline FEV1 of 33% of predicted - Acute kidney injury, likely secondary to intravascular volume depletion and dehydration and the creatinine is up to 3.5, and the patient was resuscitated IV fluids and there has been improvement in the patient's Renal function and creatinine is down to 0.98 - Hyperkalemia, possibly related to acute kidney injury . Patient is also on potassium supplements and lisinopril which is probably contributing to the acute kidney injury. Patient's potassium level improved since down to 4.6 - Hypernatremia, serum sodium is 148, probably related to decreased free water intake, resolved, today's sodium is 140 - History of nicotine dependence - hyperlipidemia - Hypertension - Neoplasm of bladder - History of deep venous thrombosis, history of currently on no anticoagulants -Stenotrophomonas l tracheobronchitis treated in 2018 -Abdominal pain, under investigation. Patient may have an underlying mild component of pancreatitis. THE ABDOMEN WAS NEGATIVE PLAN No issues overnight, patient remains stable from pulmonary standpoint, renal profile is improving. Patient is tolerating oral intake. Tolerating activity, vital signs are stable. From pulmonary standpoint patient could be discharged home today on prednisone taper, and his maintenance inhalers and nebulizer treatments. Follow-up with Dr. Chavarria in the office in 7-10 days. I performed a history & physical examination of the patient and discussed their management with my nurse practitioner, Dora Abarca. I reviewed the nurse practitioner's note and agree with the documented findings and plan of care. Lung sounds are positive for diminished air entry bilaterally, with minimal expiratory wheezing and scattered rhonchi. The findings and the impression was discussed with the patient. I attest to the documentation by the nurse practitioner. Time with Patient: Less than 30
== END 2017-09-18 10:54 | disposition home health service (06) | DRG 682 ==
LOC: EC 12:13 → 6SEL 13:59 → 4MS4W 09-12 11:32
PROVIDERS: ADMIT Family Medicine; ATTEND Family Medicine
DX: N17.9 Acute kidney failure, unspecified (principal); K85.90 Acute pancreatitis without necrosis or infection, unspecified; E87.3 Alkalosis; J96.11 Chronic respiratory failure with hypoxia; E87.0 Hyperosmolality and hypernatremia; E87.5 Hyperkalemia; J44.1 Chronic obstructive pulmonary disease with (acute) exacerbation; E86.0 Dehydration; D63.8 Anemia in other chronic diseases classified elsewhere; E78.5 Hyperlipidemia, unspecified; F32.9 Major depressive disorder, single episode, unspecified; H91.10 Presbycusis, unspecified ear; J98.01 Acute bronchospasm; I10 Essential (primary) hypertension; N40.0 Benign prostatic hyperplasia without lower urinary tract symptoms; Z79.52 Long term (current) use of systemic steroids; Z79.899 Other long term (current) drug therapy; Z80.1 Family history of malignant neoplasm of trachea, bronchus and lung; Z85.51 Personal history of malignant neoplasm of bladder; Z86.718 Personal history of other venous thrombosis and embolism; Z87.01 Personal history of pneumonia (recurrent); Z87.891 Personal history of nicotine dependence; Z99.81 Dependence on supplemental oxygen
CPT/HCPCS: 36415; 71045; 76770; 80048; 80053; 81003; 82150; 83540; 83550; 83690; 83735; 83880; 84132; 84484; 85025; 85027; 85379; 85610; 85730; 87070; 87205; 93005; 93970; 94640; 94667; 94760; 96365; 96374; 99285

== ENCOUNTER → 2018-03-20 | Outpatient (CLI) | payer MEDICARE ==
[2018-03-20 11:52] LABS: Anisocytosis Slight; Basophils # (A) 0.1 k/uL (0-0.2); Basophils % (A) 1 %; Eosinophils # (A) 0.5 k/uL (0-0.7); Eosinophils % (A) 6 %; HCT 28.4 % (39.0-53.0); HGB 8.7 gm/dL (13.0-17.5); Hypochromasia Marked; Lymphocytes # (A) 1.2 k/uL (1.0-4.8); Lymphocytes % (A) 14 %; MCH 26.9 pg (25.0-35.0); MCHC 30.5 g/dL (31.0-37.0); MCV 88.4 fL (80.0-100.0); Mean Platelet Volume 6.2; Monocytes # (A) 0.6 k/uL (0-1.0); Monocytes % (A) 7 %; Neutrophils # (A) 6.3 k/uL (1.3-7.7); Neutrophils % (A) 72 %; Platelet Count 348 k/uL (150-450); RBC 3.21 m/uL (4.30-5.90); RDW 16.7 % (11.5-15.5); WBC 8.8 k/uL (3.8-10.6)
[2018-03-20 11:55] LABS: Albumin 3.6 g/dL (3.5-5.0); Calcium 9.1 mg/dL (8.4-10.2); Potassium 4.2 mmol/L (3.5-5.1); Total Bilirubin 0.3 mg/dL (0.2-1.3); Total Protein 6.6 g/dL (6.3-8.2)
== END | disposition home or self-care (01) ==
LOC: LABPAT 10:40
PROVIDERS: ATTEND Surgery
DX: Z01.818 Encounter for other preprocedural examination (principal); Z01.812 Encounter for preprocedural laboratory examination; K40.90 Unilateral inguinal hernia, without obstruction or gangrene, not specified as recurrent
CPT/HCPCS: 80053; 85025; 93005

== ENCOUNTER 2018-04-02 10:11 | Day surgery (SDC) | payer MEDICARE ==
[2018-03-28 16:10] VITALS: BMI 19.8
[~2018-04-02 10:11] MED LIST: HEPARIN SODIUM,PORCINE 5,000 UNIT/ML 1 ML VIAL SQ ONE; ceFAZolin IN SWFI 2 GM/20 ML SYRINGE IVP ONE
--- NOTE | 2018-04-02 12:55 | P.GSHP ---
History of Present Illness H&P Date: 04/02/18 Chief Complaint: Left inguinal hernia This is an 8-year-old male has developed a left femoral hernia. He presents today for laparoscopic robotic-assisted repair Past Medical History Past Medical History: Cancer, Chest Pain / Angina, COPD, Deep Vein Thrombosis ( DVT), Eye Disorder, Hearing Disorder / Deafness, Hyperlipidemia, Hypertension, Osteoarthritis (OA), Pneumonia, Prostate Disorder, Renal Disease Additional Past Medical History / Comment(s): Severe COPD with an FEV1 of 33% of predicted, chronic hypoxic respiratory failure, recurrent hospitalization for COPD exacerbation, stenotrophomonas tracheal bronchitis - HAD PFT 03/04/18. Bladder Cancer w/ prev surgery. RLE DVT. BPH. Chronic Back Pain. VARICOSE VEINS. O2 2L NC. ACUTE RENAL FAILURE 09/2017 R/T DEHYDRATION/DEPRESSION, PER . History of Any Multi-Drug Resistant Organisms: None Reported Past Surgical History: Bladder Surgery, Tonsillectomy Additional Past Surgical History / Comment(s): Bladder CA Surgery, Vasectomy. BRONCHIAL WASHING. EXC CATARACTS CARLOS. Past Anesthesia/Blood Transfusion Reactions: No Reported Reaction Smoking Status: Former smoker - Past Family History Father Family Medical History: Cancer Additional Family Medical History / Comment(s): Father had scoliosis. Father of lung cancer Mother History Unknown: Yes Family Medical History: CVA/TIA Additional Family Medical History / Comment(s): Mother . Unknown history Medications and Allergies Home Medications Medication Instructions Recorded Confirmed Type Albuterol Sulfate [Proair Hfa] 2 puff INHALATION RT-Q6H PRN 07/10/15 03/28/18 History Simvastatin [Zocor] 40 mg PO DAILY 07/10/15 03/28/18 History Ipratropium-Albuterol Nebulize 3 ml INHALATION RT-QID 07/11/15 03/28/18 History [Duoneb 0.5 mg-3 mg/3 ml Soln] Fluticasone/Vilanterol [Breo 1 puff INHALATION RT-DAILY 10/05/16 03/28/18 History Ellipta 200-25 Mcg INH] predniSONE 5 mg PO DAILY 10/05/16 03/28/18 History Tamsulosin HCl [Flomax] 0.4 mg PO BID 06/06/17 03/28/18 History Furosemide [Lasix] 20 mg PO DAILY 08/16/17 03/28/18 History Citalopram Hydrobromide [CeleXA] 20 mg PO DAILY #30 tab 09/18/17 03/28/18 Rx ALPRAZolam [Xanax] 0.5 mg PO TID PRN 03/28/18 03/28/18 History Acetaminophen [Tylenol Extra 500 - 1,000 mg PO Q6H PRN 03/28/18 03/28/18 History Strength] Docusate Sodium [Dok] 100 mg PO DAILY 03/28/18 03/28/18 History Ibuprofen [Motrin Ib] 400 - 600 mg PO Q6H PRN 03/28/18 03/28/18 History Lisinopril [Zestril] 10 mg PO DAILY 03/28/18 03/28/18 History prednisoLONE ACETATE 1% OPHTH 1 drops BOTH EYES DAILY 03/28/18 03/28/18 History [Pred Forte 1%] Allergies Allergy/AdvReac Type Severity Reaction Status Date / Time No Known Allergies Allergy Verified 03/28/18 15:36 Surgical - Exam - General well developed, no distress - Eyes PERRL - ENT normal pinna - Neck no masses - Respiratory normal expansion - Cardiovascular Rhythm: regular - Abdomen Abdomen: soft, non tender Hernia: inguinal (Left inguinal hernia) Assessment and Plan Assessment: Left internal hernia. We'll perform laparoscopic robotic-assisted repair.
[2018-04-02] MEDS ORDERED: LACTATED RINGERS 1,000 ML IV ONE ×3 (13:16→15:57)
[2018-04-02] MEDS ORDERED: ONDANSETRON 4 MG/2 ML VIAL IVP ONE (13:21)
[2018-04-02] MEDS ORDERED: DEXAMETHASONE SOD PHOSPHATE 10 MG/ML 1 ML VIAL IV ONE (13:22)
[2018-04-02 13:28] LABS: Anisocytosis Slight; Basophils % (A) 0 %; Eosinophils # (A) 0.2 k/uL (0-0.7); Eosinophils % (A) 2 %; HCT 30.4 % (39.0-53.0); HGB 9.4 gm/dL (13.0-17.5); Hypochromasia Moderate; Lymphocytes # (A) 1.2 k/uL (1.0-4.8); Lymphocytes % (A) 12 %; MCH 26.8 pg (25.0-35.0); MCHC 30.9 g/dL (31.0-37.0); MCV 86.9 fL (80.0-100.0); Mean Platelet Volume 6.6; Monocytes # (A) 0.4 k/uL (0-1.0); Monocytes % (A) 4 %; Neutrophils # (A) 7.8 k/uL (1.3-7.7); Neutrophils % (A) 80 %; Platelet Count 422 k/uL (150-450); RDW 16.9 % (11.5-15.5); WBC 9.7 k/uL (3.8-10.6)
[2018-04-02 13:40] LABS: Glucose,Whole Blood 111 mg/dL (75-99)
[2018-04-02] MEDS ORDERED: HYDROCORTISONE SUCCINATE 100 MG/2 ML VIAL IVP ONE (13:45)
[2018-04-02] MEDS ORDERED: MIDAZOLAM 2 MG/2 ML VIAL IVP ONE (13:51)
--- NOTE | 2018-04-02 14:14 | P.ONQ ---
Anesthesiology Proc Note - PNB - Peripheral Nerve Block Performed Bilateral Transversus Abdominis Single Time Out Performed: Yes Procedure Start Time: 13:51 Procedure Stop Time: 14:03 Indication: Acute Post-Operative Pain Sedation Type: Sedate with meaningful contact maintained Preparation: Sterile Prep Position: Supine Needle Size: 50mm (2") Needle Gauge: 21 Technique: Ultrasound Injectate: 0.5% Ropivacaine (see comment for volume) (ropi .5% 15cc) Blood Aspirated: No Pain Paresthesia on Injection Noted: No Resistance on Injection: Normal Events: Uneventful and Well Tolerated
[2018-04-02] MEDS ORDERED: BUPIVACAIN-EPI 0.5%-1:200,000 30 ML VIAL SQ ONE (15:27)
[2018-04-02] MEDS ORDERED: NEOSTIGMINE 1 MG/ML 10 ML VIAL ONE (15:30)
[2018-04-02] MEDS ORDERED: GLYCOPYRROLATE 0.2 MG/ML 2 ML VIAL ONE (15:30)
[2018-04-02] MEDS ORDERED: ROCURONIUM BROMIDE 10 MG/ML 10 ML VIAL IV ONE (15:30)
[2018-04-02] MEDS ORDERED: LIDOCAINE 1% INJ 10MG/ML (20 ML MDV) ONE (15:30)
[2018-04-02] MEDS ORDERED: fentaNYL (PF) 50 MCG/ML 2 ML AMP ONE (15:30)
[2018-04-02] MEDS ORDERED: SUCCINYLCHOLINE CHLORIDE 100 MG/5 ML SYR IV ONE (15:30)
[2018-04-02] MEDS ORDERED: ROPIVACAINE 5 MG/ML 30 ML VIAL ONE (15:30)
[2018-04-02] MEDS ORDERED: PROPOFOL 10 MG/ML 20 ML VIAL IV ONE (15:30)
--- NOTE | 2018-04-02 16:30 | P.OP ---
Date of Procedure: 04/02/18 Preoperative Diagnosis: Left inguinal hernia Postoperative Diagnosis: Bilateral hernias Urinary retention Procedure(s) Performed: Laparoscopic robotic-assisted repair of bilateral hernias Insertion of Swartz catheter Anesthesia: ADAM Surgeon: Erasmo Eaton Estimated Blood Loss (ml): 5 Pathology: none sent Condition: stable Disposition: PACU Description of Procedure: The patient was placed on the operating table in the supine position. The patient received general anesthesia. The patient's abdomen was prepped and draped in usual sterile fashion. The skin was anesthetized 1% local Xylocaine at the incision sites. Using an 11 blade a skin incision was made at the umbilicus. The fascia was grasped with a Micki and then the peritoneal cavity was entered with the Veress needle. Position of the Veress needle was confirmed with a positive drop test. After adequate insufflation a 5 mm trocar was placed into the peritoneal cavity. The Laparoscope was placed the peritoneal cavity. And a robotic 8 mm trocar was placed in the right lateral position and then another 8 mm robotic trochars placed in the left lateral position. The original 5 mm trocar was exchanged for a 12 mm trocar. The patient was noted to have a massively distended bladder. The Swartz catheter was placed. 1500 mL of urine was retrieved. The patient was placed in reverse Trendelenburg and then the patient was docked to the robot. Next the peritoneum over top of the right hernia was incised and then using blunt and sharp dissection and electrocautery the hernia sac was dissected free from the floor of the inguinal canal. The hernia sac was completely reduced into the peritoneal cavity. And then using the Pro sampler ovens mesh the hernia was repaired. The peritoneum was then sutured with 2-0V lock suture. Next the peritoneum over top of the left hernia was incised and then using blunt and sharp dissection and electrocautery the hernia sac was dissected free from the floor of the inguinal canal. The hernia sac was completely reduced into the peritoneal cavity. And then using the Pro sampler ovens mesh the hernia was repaired. The peritoneum was then sutured with 2-0V lock suture. The patient was then undocked the robot. The needle was withdrawn from the peritoneal cavity. The umbilical trocar site was closed with 0 Ethibond suture. The skin was closed interrupted 3-0 Monocryl suture. Dermabond dressing was applied. Patient was sent to recovery in stable condition.
[2018-04-02 16:56] VITALS: TEMP 97.6
[2018-04-02] MEDS ORDERED: HYDROmorphone 1 MG/ML 1 ML SYRINGE IVP ONE (17:11)
[2018-04-02 18:06] VITALS: RESP 18
[2018-04-02 18:25] VITALS: BP 144/67; PULSE 86
== END 2018-04-02 18:43 | disposition home or self-care (01) ==
LOC: OR 10:11
PROVIDERS: ATTEND Surgery
DX: K40.20 Bilateral inguinal hernia, without obstruction or gangrene, not specified as recurrent (principal); R33.9 Retention of urine, unspecified; J44.9 Chronic obstructive pulmonary disease, unspecified; H57.9 Unspecified disorder of eye and adnexa; H91.90 Unspecified hearing loss, unspecified ear; E78.5 Hyperlipidemia, unspecified; I10 Essential (primary) hypertension; M19.90 Unspecified osteoarthritis, unspecified site; N42.9 Disorder of prostate, unspecified; N28.9 Disorder of kidney and ureter, unspecified; J96.11 Chronic respiratory failure with hypoxia; F32.9 Major depressive disorder, single episode, unspecified; Z79.51 Long term (current) use of inhaled steroids; Z79.52 Long term (current) use of systemic steroids; Z79.899 Other long term (current) drug therapy; Z86.718 Personal history of other venous thrombosis and embolism; Z85.51 Personal history of malignant neoplasm of bladder; Z87.891 Personal history of nicotine dependence
CPT/HCPCS: 49650; 64488; 85025; C1781; J2250; J1644; J1100; J2710; J1720; J2405; J2001; J3010; J1170; J2795; J0330; J2704; J0690

== ENCOUNTER 2018-04-04 22:21 | Emergency (ER) | payer MEDICARE ==
--- NOTE | 2018-04-04 23:01 | ED ---
Male Urogenital HPI - General Chief complaint: Urogenital Stated complaint: Male Time Seen by Provider: 04/04/18 22:59 Source: patient, family Mode of arrival: wheelchair Limitations: physical limitation - History of Present Illness Initial comments: Iron is an 83-year-old gentleman who underwent hernia repair earlier this week. At the time of surgery patient was noted to have some urinary retention preoperatively and a Swartz catheter was placed. Swartz catheter remained in place until he followed up with his urologist earlier today and had his Swartz catheter removed. Patient reports he's been unable to urinate for approximately 16 hours since that time. Patient reports that he has been trying to urinate but has been unable to produce any urine throughout the day today. - Related Data Home Medications Medication Instructions Recorded Confirmed Albuterol Sulfate [Proair Hfa] 2 puff INHALATION RT-Q6H PRN 07/10/15 04/04/18 Simvastatin [Zocor] 40 mg PO DAILY 07/10/15 04/04/18 Ipratropium-Albuterol Nebulize 3 ml INHALATION RT-QID 07/11/15 04/04/18 [Duoneb 0.5 mg-3 mg/3 ml Soln] Fluticasone/Vilanterol [Breo 1 puff INHALATION RT-DAILY 10/05/16 04/04/18 Ellipta 200-25 Mcg INH] predniSONE 5 mg PO DAILY 10/05/16 04/04/18 Tamsulosin HCl [Flomax] 0.4 mg PO BID 06/06/17 04/04/18 Furosemide [Lasix] 20 mg PO DAILY 08/16/17 04/04/18 ALPRAZolam [Xanax] 0.5 mg PO TID 03/28/18 04/04/18 Lisinopril [Zestril] 10 mg PO DAILY 04/04/18 04/04/18 Previous Rx's Medication Instructions Recorded Citalopram Hydrobromide [CeleXA] 20 mg PO DAILY #30 tab 09/18/17 HYDROcodone/APAP 7.5-325MG [Galvin 1 tab PO Q4H PRN 3 Days #18 tab 04/02/18 7.5-325] Allergies Allergy/AdvReac Type Severity Reaction Status Date / Time No Known Allergies Allergy Verified 04/04/18 23:30 Review of Systems ROS Statement: Those systems with pertinent positive or pertinent negative responses have been documented in the HPI. ROS Other: All systems not noted in ROS Statement are negative. Past Medical History Past Medical History: Cancer, Chest Pain / Angina, COPD, Deep Vein Thrombosis ( DVT), Eye Disorder, Hearing Disorder / Deafness, Hyperlipidemia, Hypertension, Osteoarthritis (OA), Pneumonia, Prostate Disorder, Renal Disease Additional Past Medical History / Comment(s): Severe COPD with an FEV1 of 33% of predicted, chronic hypoxic respiratory failure, recurrent hospitalization for COPD exacerbation, stenotrophomonas tracheal bronchitis - HAD PFT 03/04/18. Bladder Cancer w/ prev surgery. RLE DVT. BPH. Chronic Back Pain. VARICOSE VEINS. O2 2L NC. ACUTE RENAL FAILURE 09/2017 R/T DEHYDRATION/DEPRESSION, PER . History of Any Multi-Drug Resistant Organisms: None Reported Past Surgical History: Bladder Surgery, Hernia Repair, Tonsillectomy Additional Past Surgical History / Comment(s): Bladder CA Surgery, Vasectomy. BRONCHIAL WASHING. EXC CATARACTS CARLOS., Past Anesthesia/Blood Transfusion Reactions: No Reported Reaction Past Psychological History: Anxiety, Depression Smoking Status: Former smoker Past Alcohol Use History: None Reported Past Drug Use History: None Reported - Past Family History Father Family Medical History: Cancer Additional Family Medical History / Comment(s): Father had scoliosis. Father of lung cancer Mother History Unknown: Yes Family Medical History: CVA/TIA Additional Family Medical History / Comment(s): Mother . Unknown history General Exam - General Exam Comments Initial Comments: GENERAL: Chronically ill-appearing oxygen-dependent male HENT: Normocephalic, Atraumatic. EYES: Physical room reactive to light PULMONARY: Mild wheezing Wearing oxygen nasal cannula CARDIOVASCULAR: There is a regular rate and rhythm without any murmurs gallops or rubs. ABDOMEN: Well-healing laparoscopic surgical incisions with no surrounding erythema or evidence of infection Appropriate postoperative tenderness to palpation SKIN: Well-healing surgical incisions NEUROLOGIC: Patient is alert and oriented x3. Cranial nerves II through XII are grossly intact. Motor and sensory are also intact. Normal speech, volume and content. Symmetrical smile. MUSCULOSKELETAL: Normal extremities with adequate strength and full range of motion. No lower extremity swelling or edema. No calf tenderness. LYMPHATICS: No significant lymphadenopathy is noted PSYCHIATRIC: Normal psychiatric evaluation. Limitations: no limitations Limitations: physical limitation Course Vital Signs 04/04/18 04/05/18 22:36 00:10 Temperature 99.3 F 99.8 F H Pulse Rate 103 H 90 Respiratory 18 16 Rate Blood Pressure 124/57 148/66 O2 Sat by Pulse 94 L 97 Oximetry Medical Decision Making - Medical Decision Making Patient was seen and evaluated, patient is been unable to urinate for 16 hours since Swartz catheter removal. The catheter was ordered. Proximately 500 mL of dark urine was produced Analysis with no evidence of UTI Patient was discharged home with Swartz catheter in place. He is familiar with Swartz catheter care. He will contact his urologist on Saturday for follow-up Return parameters discussed patient was discharged home in stable condition. - Lab Data Lab Results 04/04/18 Range/Units 23:14 Urine Color Yellow Urine Appearance Clear (Clear) Urine pH 5.5 (5.0-8.0) Ur Specific [place] 1.015 (1.001-1.035) Urine Protein Trace H (Negative) Urine Glucose (UA) Negative (Negative) Urine Ketones Negative (Negative) Urine Blood Negative (Negative) Urine Nitrite Negative (Negative) Urine Bilirubin Negative (Negative) Urine Urobilinogen <2.0 (<2.0) mg/dL Ur Leukocyte Esterase Small H (Negative) Urine RBC 2 (0-5) /hpf Urine WBC 15 H (0-5) /hpf Ur Squamous Epith Cells <1 (0-4) /hpf Hyaline Casts 19 H (0-2) /lpf Disposition Clinical Impression: Urinary retention, Dehydration Disposition: HOME SELF-CARE Instructions: *Surgery [facility] - Swartz Catheter Instructions, Swartz Catheter Placement and Care (ED) Additional Instructions: Call the urology office on Saturday for follow-up. Follow up with Dr. Betancourt as scheduled on Saturday. Drink more fluids Is patient prescribed a controlled substance at d/c from ED?: No Referrals: Lobo Elizabeth MD [Primary Care Provider] - 1-2 days
[2018-04-05 00:05] LABS: Appearance,Urine Clear (Clear); Bilirubin,Urine Negative (Negative); Blood,Urine Negative (Negative); Color,Urine Yellow; Glucose,Urine (UA) Negative (Negative); Hyaline Casts,Urine 19 /lpf (0-2); Ketones,Urine Negative (Negative); Leukocyte Esterase,Urine Small (Negative); Nitrite,Urine Negative (Negative); PH, Urine 5.5 (5.0-8.0); Protein,Urine Trace (Negative); RBC,Urine 2 /hpf (0-5); Specific Gravity,Urine 1.015 (1.001-1.035); Squamous Epithelial Cell,Urine <1 /hpf (0-4); Urobilinogen,Urine <2.0 mg/dL (<2.0); WBC,Urine 15 /hpf (0-5)
[2018-04-05 00:12] VITALS: BP 148/66; PULSE 90; RESP 16; TEMP 99.8
== END 2018-04-05 00:26 | disposition home or self-care (01) ==
LOC: EC 22:21
DX: E86.0 Dehydration (principal); J44.9 Chronic obstructive pulmonary disease, unspecified; J96.11 Chronic respiratory failure with hypoxia; E78.5 Hyperlipidemia, unspecified; I10 Essential (primary) hypertension; M19.90 Unspecified osteoarthritis, unspecified site; N40.1 Benign prostatic hyperplasia with lower urinary tract symptoms; R33.9 Retention of urine, unspecified; H91.90 Unspecified hearing loss, unspecified ear; F41.9 Anxiety disorder, unspecified; Z87.891 Personal history of nicotine dependence; Z79.51 Long term (current) use of inhaled steroids; Z79.52 Long term (current) use of systemic steroids; Z79.899 Other long term (current) drug therapy; Z86.79 Personal history of other diseases of the circulatory system; Z85.51 Personal history of malignant neoplasm of bladder; Z98.890 Other specified postprocedural states; Z99.81 Dependence on supplemental oxygen; Z80.1 Family history of malignant neoplasm of trachea, bronchus and lung
CPT/HCPCS: 51702; 81001; 99283

== ENCOUNTER 2019-03-30 10:54 | Inpatient (IN) | payer MEDICARE ==
[2019-03-30] MEDS ORDERED: methylPREDNISolone SOD SUCCI 125 MG/2 ML VIAL IV STA (12:00)
[2019-03-30] MEDS ORDERED: IPRATROPIUM-ALBUTEROL 3 ML NEB INHALATION STA (12:00)
--- NOTE | 2019-03-30 12:03 | ED ---
General Adult HPI - General Chief complaint: Shortness of Breath Stated complaint: PAPO Time Seen by Provider: 03/30/19 11:26 Source: patient, RN notes reviewed Mode of arrival: ambulatory Limitations: no limitations, physical limitation - History of Present Illness Initial comments: Patient is a pleasant 84-year-old male presenting to the emergency Department with complaints of cough and difficulty in breathing. Onset of symptoms was around 3 days ago. Patient did see Dr. Elizabeth today and was advised come to the emergency department. Patient states cough has been productive with yellow sputum. No fevers. Symptoms are similar to previous COPD. - Related Data Home Medications Medication Instructions Recorded Confirmed Albuterol Sulfate [Proair Hfa] 2 puff INHALATION RT-Q6H PRN 07/10/15 03/30/19 Simvastatin [Zocor] 40 mg PO DAILY 07/10/15 03/30/19 Ipratropium-Albuterol Nebulize 3 ml INHALATION RT-QID 07/11/15 03/30/19 [Duoneb 0.5 mg-3 mg/3 ml Soln] Fluticasone/Vilanterol [Breo 1 puff INHALATION RT-DAILY 10/05/16 03/30/19 Ellipta 200-25 Mcg INH] predniSONE 5 mg PO DAILY 10/05/16 03/30/19 Tamsulosin HCl [Flomax] 0.4 mg PO BID 06/06/17 03/30/19 Furosemide [Lasix] 20 mg PO DAILY 08/16/17 03/30/19 ALPRAZolam [Xanax] 0.5 mg PO TID PRN 03/28/18 03/30/19 Lisinopril [Zestril] 10 mg PO DAILY 04/04/18 03/30/19 Previous Rx's Medication Instructions Recorded Citalopram Hydrobromide [CeleXA] 20 mg PO DAILY #30 tab 09/18/17 Allergies Allergy/AdvReac Type Severity Reaction Status Date / Time No Known Allergies Allergy Verified 03/30/19 11:47 Review of Systems ROS Statement: Those systems with pertinent positive or pertinent negative responses have been documented in the HPI. ROS Other: All systems not noted in ROS Statement are negative. Constitutional: Denies: fever Eyes: Denies: eye pain ENT: Denies: ear pain Respiratory: Reports: cough, dyspnea Cardiovascular: Denies: chest pain Endocrine: Denies: fatigue Gastrointestinal: Denies: abdominal pain Genitourinary: Denies: dysuria Musculoskeletal: Denies: back pain Skin: Denies: rash Neurological: Denies: headache Past Medical History Past Medical History: Cancer, Chest Pain / Angina, COPD, Deep Vein Thrombosis (DVT), Eye Disorder, Hearing Disorder / Deafness, Hyperlipidemia, Hypertension, Osteoarthritis (OA), Pneumonia, Prostate Disorder, Renal Disease Additional Past Medical History / Comment(s): Severe COPD with an FEV1 of 33% of predicted, chronic hypoxic respiratory failure, recurrent hospitalization for COPD exacerbation, stenotrophomonas tracheal bronchitis - HAD PFT 03/04/18. Bladder Cancer w/ prev surgery. RLE DVT. BPH. Chronic Back Pain. VARICOSE VEINS. O2 2L NC. ACUTE RENAL FAILURE 09/2017 R/T DEHYDRATION/DEPRESSION, PER . History of Any Multi-Drug Resistant Organisms: None Reported Past Surgical History: Bladder Surgery, Hernia Repair, Tonsillectomy Additional Past Surgical History / Comment(s): Bladder CA Surgery, Vasectomy. BRONCHIAL WASHING. EXC CATARACTS CARLOS., Past Anesthesia/Blood Transfusion Reactions: No Reported Reaction Past Psychological History: Anxiety, Depression Smoking Status: Former smoker Past Alcohol Use History: None Reported Past Drug Use History: None Reported - Past Family History Father Family Medical History: Cancer Additional Family Medical History / Comment(s): Father had scoliosis. Father of lung cancer Mother History Unknown: Yes Family Medical History: CVA/TIA Additional Family Medical History / Comment(s): Mother . Unknown history General Exam Limitations: no limitations, physical limitation General appearance: alert, in no apparent distress Head exam: Present: atraumatic Eye exam: Present: normal appearance, PERRL ENT exam: Present: normal oropharynx Neck exam: Present: normal inspection Respiratory exam: Present: wheezes, decreased breath sounds Cardiovascular Exam: Present: regular rate, normal rhythm GI/Abdominal exam: Present: soft. Absent: tenderness Extremities exam: Present: normal inspection Back exam: Present: normal inspection Neurological exam: Present: alert Psychiatric exam: Present: normal affect, normal mood Skin exam: Present: normal color Course Vital Signs 03/30/19 03/30/19 03/30/19 11:01 12:28 12:36 Temperature 97.9 F Pulse Rate 99 96 90 Respiratory 17 Rate Blood Pressure 98/48 O2 Sat by Pulse 91 L Oximetry 03/30/19 03/30/19 13:30 14:00 Temperature Pulse Rate 90 85 Respiratory 17 18 Rate Blood Pressure 113/59 115/62 O2 Sat by Pulse 89 L 94 L Oximetry EKG Findings - EKG Comments: EKG Findings:: Sinus rhythm at 93. Sinus arrhythmia. DC 154. QRS 82. QT 348. QTC 432. Right axis. Septal Q waves. No acute ST change. Medical Decision Making - Medical Decision Making Patient reevaluated. Patient and family updated. Patient feels somewhat better following nebulization treatment. Dr. Elizabeth has been paged for admission. - Lab Data Result diagrams: 03/30/19 12:08 03/30/19 12:08 Lab Results 03/30/19 03/30/19 Range/Units 12:08 12:08 WBC 8.5 (3.8-10.6) k/uL RBC 3.10 L (4.30-5.90) m/uL Hgb 8.2 L (13.0-17.5) gm/dL Hct 26.0 L (39.0-53.0) % MCV 84.0 (80.0-100.0) fL MCH 26.4 (25.0-35.0) pg MCHC 31.5 (31.0-37.0) g/dL RDW 16.6 H (11.5-15.5) % Plt Count 474 H (150-450) k/uL Neutrophils % 89 % Lymphocytes % 4 % Monocytes % 5 % Eosinophils % 1 % Basophils % 0 % Neutrophils # 7.5 (1.3-7.7) k/uL Lymphocytes # 0.4 L (1.0-4.8) k/uL Monocytes # 0.4 (0-1.0) k/uL Eosinophils # 0.1 (0-0.7) k/uL Basophils # 0.0 (0-0.2) k/uL Hypochromasia Slight Anisocytosis Slight Sodium 141 (137-145) mmol/L Potassium 4.9 (3.5-5.1) mmol/L Chloride 103 (98-107) mmol/L Carbon Dioxide 28 (22-30) mmol/L Anion Gap 10 mmol/L BUN 38 H (9-20) mg/dL Creatinine 1.48 H (0.66-1.25) mg/dL Est GFR (CKD-EPI)AfAm 50 (>60 ml/min/1.73 sqM) Est GFR (CKD-EPI)NonAf 43 (>60 ml/min/1.73 sqM) Glucose 130 H (74-99) mg/dL Calcium 8.4 (8.4-10.2) mg/dL Total Bilirubin 0.4 (0.2-1.3) mg/dL AST 21 (17-59) U/L ALT 23 (21-72) U/L Alkaline Phosphatase 93 (38-126) U/L Total Protein 6.6 (6.3-8.2) g/dL Albumin 3.3 L (3.5-5.0) g/dL - Radiology Data Radiology results: image reviewed (Chest x-ray shows interstitial changes.) Disposition Clinical Impression: Acute exacerbation of chronic obstructive airways disease Disposition: ADMITTED IP TO THIS HOSP Is patient prescribed a controlled substance at d/c from ED?: No Referrals: Lobo Elizabeth MD [Primary Care Provider] - 1-2 days Decision Time: 15:25
[2019-03-30 12:35] LABS: Anisocytosis Slight; Basophils % (A) 0 %; Eosinophils # (A) 0.1 k/uL (0-0.7); Eosinophils % (A) 1 %; HGB 8.2 gm/dL (13.0-17.5); Hypochromasia Slight; Lymphocytes # (A) 0.4 k/uL (1.0-4.8); Lymphocytes % (A) 4 %; MCH 26.4 pg (25.0-35.0); MCHC 31.5 g/dL (31.0-37.0); Mean Platelet Volume 6.9; Monocytes # (A) 0.4 k/uL (0-1.0); Monocytes % (A) 5 %; Neutrophils # (A) 7.5 k/uL (1.3-7.7); Neutrophils % (A) 89 %; Platelet Count 474 k/uL (150-450); RDW 16.6 % (11.5-15.5); WBC 8.5 k/uL (3.8-10.6)
[2019-03-30 12:43] LABS: Albumin 3.3 g/dL (3.5-5.0); Calcium 8.4 mg/dL (8.4-10.2); Potassium 4.9 mmol/L (3.5-5.1); Total Bilirubin 0.4 mg/dL (0.2-1.3); Total Protein 6.6 g/dL (6.3-8.2)
--- NOTE | 2019-03-30 13:55 | XR ---
EXAMINATION TYPE: XR chest 2V DATE OF EXAM: 03/30/2019 COMPARISON: 09/10/2017 INDICATION: Difficulty breathing TECHNIQUE: Frontal and lateral views of the chest are obtained. FINDINGS: The heart size is normal. The pulmonary vasculature is normal. There is mild diffuse increased lung markings which is nonspecific. This is a change from 2018. On in fectious etiology could be considered. Volume overload could be considered. Developing pulmonary fibr osis should be considered. IMPRESSION: 1. Diffuse increased mild lung markings. Correlate for developing pulmonary fibrosis. Differential di agnosis is discussed above.
[2019-03-30] MEDS ORDERED: IPRATROPIUM-ALBUTEROL 3 ML NEB INHALATION PRN (15:25)
[2019-03-30] MEDS: IPRATROPIUM-ALBUTEROL 3 ML NEB INHALATION SCH ×2 (17:24→19:46)
[2019-03-30] MEDS ORDERED: ALPRAZolam 0.5 MG TAB PO PRN (18:58)
[2019-03-30] MEDS: methylPREDNISolone SOD SUCCI 125 MG/2 ML VIAL IV SCH ×2 (18:58→23:58)
[2019-03-30] MEDS: TAMSULOSIN 0.4 MG CAP.ER.24H PO SCH (21:26)
[2019-03-30] MEDS: CEFDINIR 300 MG CAP PO SCH (21:26)
[2019-03-31] MEDS: methylPREDNISolone SOD SUCCI 125 MG/2 ML VIAL IV SCH ×4 (06:00→23:52)
[2019-03-31 08:20] LABS: Anisocytosis Slight; HCT 26.5 % (39.0-53.0); HGB 8.4 gm/dL (13.0-17.5); Hypochromasia Slight; MCH 26.7 pg (25.0-35.0); MCHC 31.6 g/dL (31.0-37.0); MCV 84.5 fL (80.0-100.0); Mean Platelet Volume 6.5; Platelet Count 485 k/uL (150-450); RBC 3.14 m/uL (4.30-5.90); RDW 16.3 % (11.5-15.5); WBC 5.6 k/uL (3.8-10.6)
[2019-03-31] MEDS: IPRATROPIUM-ALBUTEROL 3 ML NEB INHALATION SCH ×4 (08:32→20:23)
[2019-03-31 08:51] LABS: Albumin 3.2 g/dL (3.5-5.0); Calcium 8.8 mg/dL (8.4-10.2); Potassium 5.2 mmol/L (3.5-5.1); Total Bilirubin 0.3 mg/dL (0.2-1.3); Total Protein 6.7 g/dL (6.3-8.2)
[2019-03-31] MEDS: CEFDINIR 300 MG CAP PO SCH ×2 (09:11→23:48)
[2019-03-31] MEDS: CITALOPRAM HYDROBROMIDE 20 MG TAB PO SCH (09:11)
[2019-03-31] MEDS: LISINOPRIL 10 MG TAB PO SCH (09:11)
[2019-03-31] MEDS: FUROSEMIDE 20 MG TAB PO SCH (09:11)
[2019-03-31] MEDS: TAMSULOSIN 0.4 MG CAP.ER.24H PO SCH ×2 (09:11→21:34)
--- NOTE | 2019-03-31 13:01 | P.CNPUL ---
History of Present Illness Consult date: 03/31/19 Requesting physician: Lobo Elizabeth Reason for consult: dyspnea, cough, COPD Chief complaint: Cough, congestion, dyspnea History of present illness: This is a 82-year-old male patient of Dr. Elizabeth who also sees Dr. 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 Patient has had the multiple pulmonary complications and pulmonary infections with history of stenotrophomonas in the bronchial wash cultures, treated with Bactrim. Patient smoking history is in remission, other medical history includes hypertension, hyperlipidemia, neoplasm of bladder, history of DVT and patient is currently not on any anticoagulants. On 03/30/2019 patient was sent in from his primary care physician's office where he went for evaluation of worsening dyspnea, cough, congestion, and production of yellow sputum. Denied any fever or chills. Chest x-ray on admission showed diffuse increased mid lung markings, with the possibility of developing pulmonary fibrosis. Admission lab work showed a white blood cell count of 8.5, hemoglobin of 8.2, platelet count is 474, electrodes were within normal limits, B1 is 38 and creatinine was 1.48. Patient reports no nausea, vomiting, no d iarrhea. She was started on oral Omnicef, nebulized bronchodilators and IV steroids. Patient is on a combination of Breo-Ellipta and DuoNeb nebs at home. We were asked to see this patient in evaluation for COPD exacerbation Review of Systems All systems: negative Constitutional: Denies chills, Denies fever Eyes: denies blurred vision, denies pain Ears, nose, mouth and throat: Denies headache, Denies sore throat Cardiovascular: Denies chest pain, Denies shortness of breath Respiratory: Reports congestion, Reports cough, Reports dyspnea, Reports respiratory infections, Reports wheezing Gastrointestinal: Denies abdominal pain, Denies diarrhea, Denies nausea, Denies vomiting Musculoskeletal: Denies myalgias Integumentary: Denies pruritus, Denies rash Neurological: Denies numbness, Denies weakness Psychiatric: Denies anxiety, Denies depression Endocrine: Denies fatigue, Denies weight change Past Medical History Past Medical History: Cancer, Chest Pain / Angina, COPD, Deep Vein Thrombosis (DVT), Eye Disorder, Hearing Disorder / Deafness, Hyperlipidemia, Hypertension, Osteoarthritis (OA), Pneumonia, Prostate Disorder, Renal Disease Additional Past Medical History / Comment(s): Severe COPD with an FEV1 of 33% of predicted, chronic hypoxic respiratory failure, recurrent hospitalization for COPD exacerbation, stenotrophomonas tracheal bronchitis - HAD PFT 03/04/18. Bladder Cancer w/ prev surgery. RLE DVT. BPH. Chronic Back Pain. VARICOSE VEINS. O2 2L NC. ACUTE RENAL FAILURE 09/2017 R/T DEHYDRATION/DEPRESSION, PER . History of Any Multi-Drug Resistant Organisms: None Reported Past Surgical History: Bladder Surgery, Hernia Repair, Tonsillectomy Additional Past Surgical History / Comment(s): Bladder CA Surgery, Vasectomy. BRONCHIAL WASHING. EXC CATARACTS CARLOS., Past Anesthesia/Blood Transfusion Reactions: No Reported Reaction Past Psychological History: Anxiety, Depression Additional Psychological History / Comment(s): Pt resides with his spouse in a single level home that has 4 porchs steps..pt drives. He has a nebulizer, 02 uses prn. He has [facility] home care. Smoking Status: Former smoker Past Alcohol Use History: None Reported Additional Past Alcohol Use History / Comment(s): Pt started smoking in 1955 and quit in 1999. At one time smoking 2-3 ppd. Past Drug Use History: None Reported - Past Family History Father Family Medical History: Cancer Additional Family Medical History / Comment(s): Father had scoliosis. Father of lung cancer Mother History Unknown: Yes Family Medical History: CVA/TIA Additional Family Medical History / Comment(s): Mother . Unknown history Medications and Allergies Home Medications Medication Instructions Recorded Confirmed Type Albuterol Sulfate [Proair Hfa] 2 puff INHALATION RT-Q6H PRN 07/10/15 03/30/19 History Simvastatin [Zocor] 40 mg PO DAILY 07/10/15 03/30/19 History Ipratropium-Albuterol Nebulize 3 ml INHALATION RT-QID 07/11/15 03/30/19 History [Duoneb 0.5 mg-3 mg/3 ml Soln] Fluticasone/Vilanterol [Breo 1 puff INHALATION RT-DAILY 10/05/16 03/30/19 History Ellipta 200-25 Mcg INH] predniSONE 5 mg PO DAILY 10/05/16 03/30/19 History Tamsulosin HCl [Flomax] 0.4 mg PO BID 06/06/17 03/30/19 History Furosemide [Lasix] 20 mg PO DAILY 08/16/17 03/30/19 History Citalopram Hydrobromide [CeleXA] 20 mg PO DAILY #30 tab 09/18/17 03/30/19 Rx ALPRAZolam [Xanax] 0.5 mg PO TID PRN 03/28/18 03/30/19 History Lisinopril [Zestril] 10 mg PO DAILY 04/04/18 03/30/19 History Allergies Allergy/AdvReac Type Severity Reaction Status Date / Time No Known Allergies Allergy Verified 03/30/19 11:47 Physical Exam Vitals: Vital Signs Temp Pulse Pulse Resp BP BP Pulse Ox 03/31/19 08:49 80 03/31/19 08:32 76 03/31/19 05:04 96.7 F L 78 20 127/74 95 03/30/19 21:39 98.2 F 89 18 133/67 92 L 03/30/19 20:00 89 18 03/30/19 19:58 84 16 03/30/19 19:46 72 16 03/30/19 19:00 81 16 121/59 93 L 03/30/19 18:30 84 17 113/58 90 L 03/30/19 18:00 85 16 117/71 93 L 03/30/19 17:32 87 03/30/19 17:30 78 16 96/50 98 03/30/19 17:26 80 03/30/19 17:00 85 15 107/50 94 L 03/30/19 16:30 92 15 139/61 94 L 03/30/19 16:00 90 16 117/64 94 L 03/30/19 15:30 82 17 124/73 94 L 03/30/19 15:00 85 16 107/57 93 L 03/30/19 14:30 82 17 119/69 94 L 03/30/19 14:00 85 18 115/62 94 L 03/30/19 13:30 90 17 113/59 89 L Intake and Output 03/30/19 03/31/19 03/31/19 22:59 06:59 14:59 Intake Total 540 Balance 540 Intake: Oral 540 Other: # Voids 1 1 1 GENERAL EXAM: Alert, pleasant, cachectic looking white male, and 2 L of oxygen with a pulse ox of 95%, comfortable in no apparent distress. HEAD: Normocephalic/atraumatic. EYES: Normal reaction of pupils, equal size. Conjunctiva pink, sclera white. NOSE: Clear with pink turbinates. THROAT: No erythema or exudates. NECK: No masses, no JVD, no thyroid enlargement, no adenopathy. CHEST: No chest wall deformity. Symmetrical expansion. LUNGS: Equal air entry with diffuse rhonchi and wheezes CVS: Regular rate and rhythm, normal S1 and S2, no gallops, no murmurs, no rubs ABDOMEN: Soft, nontender. No hepatosplenomegaly, normal bowel sounds, no guarding or rigidity. EXTREMITIES: No clubbing, no edema, no cyanosis, 2+ pulses and upper and lower extremities. MUSCULOSKELETAL: Muscle strength and tone normal. SPINE: No scoliosis or deformity SKIN: No rashes CENTRAL NERVOUS SYSTEM: Alert and oriented -3. No focal deficits, tone is normal in all 4 extremities. PSYCHIATRIC: Alert and oriented -3. Appropriate affect. Intact judgment and insight. Results - Laboratory Findings CBC and BMP: 03/31/19 07:24 03/31/19 07:24 Abnormal lab findings: Abnormal Labs 03/30/19 03/30/19 03/31/19 12:08 12:08 07:24 RBC 3.10 L 3.14 L Hgb 8.2 L 8.4 L Hct 26.0 L 26.5 L RDW 16.6 H 16.3 H Plt Count 474 H 485 H Lymphocytes # 0.4 L Potassium BUN 38 H Creatinine 1.48 H Glucose 130 H ALT Albumin 3.3 L 03/31/19 07:24 RBC Hgb Hct RDW Plt Count Lymphocytes # Potassium 5.2 H BUN 42 H Creatinine Glucose 141 H ALT 16 L Albumin 3.2 L - Diagnostic Findings Chest x-ray: report reviewed, image reviewed Assessment and Plan Plan: Assessment: #1. Acute exacerbation of chronic obstructive pulmonary disease with purulent tracheobronchitis #2. Acute kidney injury, improved with IV hydration, may be related to diuretic therapy and intravascular volume depletion #3. Advanced steroid-dependent COPD with a baseline FEV1 of 33% of predicted oxygen dependent and steroid dependent at baseline #4. History of nicotine dependence, currently in remission #5. Hypertension #6. Hyperlipidemia #7. Bladder cancer #8. History of deep venous thrombosis, not currently on any anticoagulants Plan: We'll continue with current medical treatment, will continue DuoNeb, we'll add Pulmicort and Perforomist, and agree with the oral antibiotics, send a sputum for culture. We'll continue I performed a history & physical examination of the patient and discussed their management with my nurse practitioner, Dora Abarca. I reviewed the nurse practitioner's note and agree with the documented findings and plan of care. Lung sounds are positive for diffuse wheezes throughout the lung wood. The findings and the impression was discussed with the patient. I attest to the documentation by the nurse practitioner. Time with Patient: Greater than 30
[2019-03-31] MEDS: ATORVASTATIN 20 MG TAB PO SCH (13:15)
[2019-03-31 14:00] VITALS: BMI 17.4
[2019-03-31] MEDS: BUDESONIDE 1 MG/2 ML NEBU INHALATION SCH (20:23)
[2019-03-31] MEDS: FORMOTEROL FUMARATE 20 MCG/2 ML NEBU INHALATION SCH (20:23)
--- NOTE | 2019-03-31 22:43 | P.HPIM ---
History of Present Illness H&P Date: 03/30/19 Chief Complaint: Dyspnea This is history and physical on an 84-year-old male essentially with history of COPD who came in to my office today with significant exacerbation elements. We did treat him as an outpatient but told him to come in emergency room for appropriate hospitalization. He has struggled with this in the past. No significant fever or chills but dyspnea is now noted. Review of Systems Constitutional: Denies chills, Denies fever Eyes: denies blurred vision, denies pain Ears, nose, mouth and throat: Denies headache, Denies sore throat Cardiovascular: Denies chest pain, Denies shortness of breath Respiratory: Reports as per HPI, Reports cough, Reports dyspnea, Reports home oxygen Gastrointestinal: Denies abdominal pain, Denies diarrhea, Denies nausea, Denies vomiting Musculoskeletal: Denies myalgias Integumentary: Denies pruritus, Denies rash Neurological: Denies numbness, Denies weakness Past Medical History Past Medical History: Cancer, Chest Pain / Angina, COPD, Deep Vein Thrombosis (DVT), Eye Disorder, Hearing Disorder / Deafness, Hyperlipidemia, Hypertension, Osteoarthritis (OA), Pneumonia, Prostate Disorder, Renal Disease Additional Past Medical History / Comment(s): Severe COPD with an FEV1 of 33% of predicted, chronic hypoxic respiratory failure, recurrent hospitalization for COPD exacerbation, stenotrophomonas tracheal bronchitis - HAD PFT 03/04/18. Bladder Cancer w/ prev surgery. RLE DVT. BPH. Chronic Back Pain. VARICOSE VEINS. O2 2L NC. ACUTE RENAL FAILURE 09/2017 R/T DEHYDRATION/DEPRESSION, PER . History of Any Multi-Drug Resistant Organisms: None Reported Past Surgical History: Bladder Surgery, Hernia Repair, Tonsillectomy Additional Past Surgical History / Comment(s): Bladder CA Surgery, Vasectomy. BRONCHIAL WASHING. EXC CATARACTS CARLOS., Past Anesthesia/Blood Transfusion Reactions: No Reported Reaction Past Psychological History: Anxiety, Depression Smoking Status: Former smoker Past Alcohol Use History: None Reported Past Drug Use History: None Reported - Past Family History Father Family Medical History: Cancer Additional Family Medical History / Comment(s): Father had scoliosis. Father of lung cancer Mother History Unknown: Yes Family Medical History: CVA/TIA Additional Family Medical History / Comment(s): Mother . Unknown history Medications and Allergies Home Medications Medication Instructions Recorded Confirmed Type Albuterol Sulfate [Proair Hfa] 2 puff INHALATION RT-Q6H PRN 07/10/15 03/30/19 History Simvastatin [Zocor] 40 mg PO DAILY 07/10/15 03/30/19 History Ipratropium-Albuterol Nebulize 3 ml INHALATION RT-QID 07/11/15 03/30/19 History [Duoneb 0.5 mg-3 mg/3 ml Soln] Fluticasone/Vilanterol [Breo 1 puff INHALATION RT-DAILY 10/05/16 03/30/19 History Ellipta 200-25 Mcg INH] predniSONE 5 mg PO DAILY 10/05/16 03/30/19 History Tamsulosin HCl [Flomax] 0.4 mg PO BID 06/06/17 03/30/19 History Furosemide [Lasix] 20 mg PO DAILY 08/16/17 03/30/19 History Citalopram Hydrobromide [CeleXA] 20 mg PO DAILY #30 tab 09/18/17 03/30/19 Rx ALPRAZolam [Xanax] 0.5 mg PO TID PRN 03/28/18 03/30/19 History Lisinopril [Zestril] 10 mg PO DAILY 04/04/18 03/30/19 History Allergies Allergy/AdvReac Type Severity Reaction Status Date / Time No Known Allergies Allergy Verified 03/30/19 11:47 Physical Exam Vitals: Vital Signs Temp Pulse Resp BP Pulse Ox 03/30/19 17:32 87 03/30/19 17:30 78 16 96/50 98 03/30/19 17:26 80 03/30/19 17:00 85 15 107/50 94 L 03/30/19 16:30 92 15 139/61 94 L 03/30/19 16:00 90 16 117/64 94 L 03/30/19 15:30 82 17 124/73 94 L 03/30/19 15:00 85 16 107/57 93 L 03/30/19 14:30 82 17 119/69 94 L 03/30/19 14:00 85 18 115/62 94 L 03/30/19 13:30 90 17 113/59 89 L 03/30/19 12:36 90 03/30/19 12:28 96 03/30/19 11:01 97.9 F 99 17 98/48 91 L Intake and Output 03/30/19 03/30/19 03/30/19 06:59 14:59 22:59 Other: Weight 58.06 kg - Constitutional General appearance: mild distress - EENT Eyes: EOMI - Neck Neck: no lymphadenopathy - Respiratory Respiratory: bilateral: dullness, prolonged expiration - Cardiovascular Rhythm: regular Heart sounds: normal: S1, S2 Abnormal Heart Sounds: no S3 Gallop - Gastrointestinal General gastrointestinal: soft, no tenderness - Integumentary Integumentary: no cellulitis - Musculoskeletal Musculoskeletal: generalized weakness - Psychiatric Psychiatric: A&O x's 3, appropriate affect, intact judgment & insight Results CBC & Chem 7: 03/30/19 12:08 03/30/19 12:08 Labs: Abnormal Lab Results - Last 24 Hours (Table) 03/30/19 03/30/19 Range/Units 12:08 12:08 RBC 3.10 L (4.30-5.90) m/uL Hgb 8.2 L (13.0-17.5) gm/dL Hct 26.0 L (39.0-53.0) % RDW 16.6 H (11.5-15.5) % Plt Count 474 H (150-450) k/uL Lymphocytes # 0.4 L (1.0-4.8) k/uL BUN 38 H (9-20) mg/dL Creatinine 1.48 H (0.66-1.25) mg/dL Glucose 130 H (74-99) mg/dL Albumin 3.3 L (3.5-5.0) g/dL Assessment and Plan (1) COPD with acute exacerbation Current Visit: No Status: Acute Code(s): J44.1 - CHRONIC OBSTRUCTIVE PULMONARY DISEASE W (ACUTE) EXACERBATION SNOMED Code(s): 881328273 (2) Hypertension Current Visit: No Status: Acute Code(s): I10 - ESSENTIAL (PRIMARY) HYPERTENSION SNOMED Code(s): 04889001 (3) Hypoxia Current Visit: No Status: Acute Code(s): R09.02 - HYPOXEMIA SNOMED Code(s): 317024643 Plan: Empiric pathway for treatment. Consult pulmonology. Check CBC and CMP in a.m. Reconcile medications. CODE STATUS will be addressed. Time with Patient: Greater than 30
[2019-04-01] MEDS: CEFDINIR 300 MG CAP PO SCH ×2 (07:19→21:37)
[2019-04-01] MEDS: LISINOPRIL 10 MG TAB PO SCH (07:19)
[2019-04-01] MEDS: methylPREDNISolone SOD SUCCI 125 MG/2 ML VIAL IV SCH ×3 (07:19→17:13)
[2019-04-01] MEDS: CITALOPRAM HYDROBROMIDE 20 MG TAB PO SCH (07:19)
[2019-04-01] MEDS: TAMSULOSIN 0.4 MG CAP.ER.24H PO SCH ×2 (07:20→21:37)
[2019-04-01] MEDS: ATORVASTATIN 20 MG TAB PO SCH (07:20)
[2019-04-01] MEDS: FUROSEMIDE 20 MG TAB PO SCH (07:20)
[2019-04-01] MEDS: BUDESONIDE 1 MG/2 ML NEBU INHALATION SCH ×2 (07:29→19:22)
[2019-04-01] MEDS: FORMOTEROL FUMARATE 20 MCG/2 ML NEBU INHALATION SCH ×2 (07:29→19:22)
[2019-04-01] MEDS: IPRATROPIUM-ALBUTEROL 3 ML NEB INHALATION SCH ×4 (07:29→19:22)
--- NOTE | 2019-04-01 08:31 | XR ---
EXAMINATION TYPE: XR chest 2V DATE OF EXAM: 04/01/2019 COMPARISON: Chest x-ray 2 days ago and older studies. HISTORY: Pneumonia progress study. TECHNIQUE: Frontal and lateral views of the chest are obtained. FINDINGS: Persistent increased interstitial markings bilaterally. There is no new suspicious focal a ir space opacity, pleural effusion, or pneumothorax seen. The cardiac silhouette size is within norm al limits. The osseous structures are intact. IMPRESSION: Increased interstitial markings likely reflect developing interstitial fibrosis more pro minent in the upper lobes. Interstitial edema is not excluded. No new focal infiltrate.
--- NOTE | 2019-04-01 09:48 | P.PN ---
Subjective Progress Note Date: 04/01/19 Principal diagnosis: COPD exacerbation Minimal improvement. Still with significant dyspnea. No voiding difficulties. Objective - Vital Signs Vital signs: Vital Signs Temp 97.7 F 04/01/19 07:00 Pulse 92 04/01/19 07:55 Resp 16 04/01/19 07:00 BP 164/73 04/01/19 07:00 Pulse Ox 92 L 04/01/19 07:00 Intake & Output 03/31/19 04/01/19 04/01/19 18:59 06:59 18:59 Intake Total 1620 320 Balance 1620 320 Weight 56.608 kg Intake: Oral 1620 320 Other: Voiding Method Toilet Toilet Toilet # Voids 2 2 - Constitutional General appearance: Present: average body habitus, thin - EENT Eyes: Absent: abnormal pupil - Respiratory Respiratory: bilateral: wheezing - Cardiovascular Rhythm: regular Heart sounds: normal: S1, S2 Abnormal Heart Sounds: Absent: S3 Gallop - Gastrointestinal General gastrointestinal: Present: soft - Integumentary Integumentary: Absent: cellulitis, rash - Psychiatric Psychiatric: Present: A&O x's 3. Absent: appropriate affect - Labs CBC & Chem 7: 03/31/19 07:24 03/31/19 07:24 Labs: Microbiology - Last 24 Hours (Table) 03/31/19 13:00 Gram Stain - Preliminary Sputum Assessment and Plan (1) COPD with acute exacerbation Current Visit: No Status: Acute Code(s): J44.1 - CHRONIC OBSTRUCTIVE PULMONARY DISEASE W (ACUTE) EXACERBATION SNOMED Code(s): 503925085 (2) Hypertension Current Visit: No Status: Acute Code(s): I10 - ESSENTIAL (PRIMARY) HYPERTENSION SNOMED Code(s): 28356663 (3) Hypoxia Current Visit: No Status: Acute Code(s): R09.02 - HYPOXEMIA SNOMED Code(s): 584806132 Plan: Continue steroid treatment. No fever or chills. Appetite minimall Appreciate pulmonology input. Check CBC and CMP in AM Time with Patient: Less than 30
--- NOTE | 2019-04-01 14:11 | P.PN ---
Subjective Progress Note Date: 04/01/19 Principal diagnosis: Acute exacerbation of chronic obstructive pulmonary disease. This is a 82-year-old male patient of Dr. Elizabeth who also sees Dr. 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 Patient has had the multiple pulmonary complications and pulmonary infections with history of stenotrophomonas in the bronchial wash cultures, treated with Bactrim. Patient smoking history is in remission, other medical history includes hypertension, hyperlipidemia, neoplasm of bladder, history of DVT and patient is currently not on any anticoagulants. On 03/30/2019 patient was sent in from his primary care physician's office where he went for evaluation of worsening dyspnea, cough, congestion, and production of yellow sputum. Denied any fever or chills. Chest x-ray on admission showed diffuse increased mid lung markings, with the possibility of developing pulmonary fibrosis. Admission lab work showed a white blood cell count of 8.5, hemoglobin of 8.2, platelet count is 474, electrodes were within normal limits, B1 is 38 and creatinine was 1.48. Patient reports no nausea, vomiting, no diarrhea. She was started on oral Omnicef, nebulized bronchodilators and IV steroids. Patient is on a combination of Breo-Ellipta and DuoNeb nebs at home. We were asked to see this patient in evaluation for COPD exacerbation The patient is seen today 04/01/2019 in follow-up on the regular medical floor. He is currently resting in bed. Still somewhat bronchospastic and wheezy. Still not back to his baseline. Continues with a productive cough. Sputum culture pending. He is continued on DuoNeb inhalations, Pulmicort and Perforomist inhalations, IV Solu-Medrol. Antibiotics in the form of Omnicef. Objective - Vital Signs Vital signs: Vital Signs Temp 97.7 F 04/01/19 07:00 Pulse 96 04/01/19 11:16 Resp 16 04/01/19 07:00 BP 164/73 04/01/19 07:00 Pulse Ox 92 L 04/01/19 07:00 Intake & Output 03/31/19 04/01/19 04/01/19 18:59 06:59 18:59 Intake Total 1620 320 Balance 1620 320 Weight 56.608 kg Intake: Oral 1620 320 Other: Voiding Method Toilet Toilet Toilet # Voids 2 2 1 - Exam GENERAL EXAM: Alert, pleasant 84-year-old gentleman on 2 L nasal cannula, comfortable in no apparent distress. HEAD: Normocephalic. EYES: Normal reaction of pupils, equal size. NOSE: Clear with pink turbinates. THROAT: No erythema or exudates. NECK: No masses, no JVD. CHEST: No chest wall deformity. LUNGS: Equal air entry with bilateral end expiratory wheeze, diminished, few scattered rhonchi. CVS: S1 and S2 normal with no audible murmur, regular rhythm. ABDOMEN: No hepatosplenomegaly, normal bowel sounds, no guarding or rigidity. SPINE: No scoliosis or deformity SKIN: No rashes CENTRAL NERVOUS SYSTEM: No focal deficits, tone is normal in all 4 extremities. EXTREMITIES: There is no peripheral edema. No clubbing, no cyanosis. Peripheral pulses are intact. - Labs CBC & Chem 7: 03/31/19 07:24 03/31/19 07:24 Labs: Microbiology - Last 24 Hours (Table) 03/31/19 13:00 Gram Stain - Preliminary Sputum Assessment and Plan Assessment: Assessment: #1. Acute exacerbation of chronic obstructive pulmonary disease with purulent tracheobronchitis #2. Acute kidney injury, improved with IV hydration, may be related to diuretic therapy and intravascular volume depletion #3. Advanced steroid-dependent COPD with a baseline FEV1 of 33% of predicted oxygen dependent and steroid dependent at baseline #4. History of nicotine dependence, currently in remission #5. Hypertension #6. Hyperlipidemia #7. Bladder cancer #8. History of deep venous thrombosis, not currently on any anticoagulants Plan: The patient was seen and evaluated by Dr. Winston. He is not quite back to his baseline. We'll continue with the current treatment plan. Increase his acti vity as tolerated. We'll continue to follow. I, the cosigning physician, performed a history & physical examination of the patient. Lungs sounds with bilateral end expiratory wheeze, few scattered rhonchi, diminished Maintaining good O2 saturations in the 90s on 2 L/m per nasal cannula. I discussed the assessment and plan of care with my nurse practitioner, Mary uAstin. I attest to the above note as dictated by her.
[2019-04-02] MEDS: methylPREDNISolone SOD SUCCI 125 MG/2 ML VIAL IV SCH ×4 (00:52→17:23)
[2019-04-02] MEDS: ATORVASTATIN 20 MG TAB PO SCH (07:15)
[2019-04-02] MEDS: CITALOPRAM HYDROBROMIDE 20 MG TAB PO SCH (07:15)
[2019-04-02] MEDS: TAMSULOSIN 0.4 MG CAP.ER.24H PO SCH ×2 (07:16→21:39)
[2019-04-02] MEDS: LISINOPRIL 10 MG TAB PO SCH (07:16)
[2019-04-02] MEDS: FUROSEMIDE 20 MG TAB PO SCH (07:16)
[2019-04-02] MEDS: CEFDINIR 300 MG CAP PO SCH (07:16)
[2019-04-02] MEDS: FORMOTEROL FUMARATE 20 MCG/2 ML NEBU INHALATION SCH ×2 (07:56→19:06)
[2019-04-02] MEDS: BUDESONIDE 1 MG/2 ML NEBU INHALATION SCH ×2 (07:56→19:06)
[2019-04-02] MEDS: IPRATROPIUM-ALBUTEROL 3 ML NEB INHALATION SCH ×4 (07:56→19:06)
--- NOTE | 2019-04-02 18:01 | P.PN ---
Subjective Progress Note Date: 04/02/19 This is a 82-year-old male patient of Dr. Elizabeth who also sees Dr. 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 Patient has had the multiple pulmonary complications and pulmonary infections with history of stenotrophomonas in the bronchial wash cultures, treated with Bactrim. Patient smoking history is in remission, other medical history includes hypertension, hyperlipidemia, neoplasm of bladder, history of DVT and patient is currently not on any anticoagulants. On 03/30/2019 patient was sent in from his primary care physician's office where he went for evaluation of worsening dyspnea, cough, congestion, and production of yellow sputum. Denied any fever or chills. Chest x-ray on admission showed diffuse increased mid lung markings, with the possibility of developing pulmonary fibrosis. Admission lab work showed a white blood cell count of 8.5, hemoglobin of 8.2, platelet count is 474, electrodes were within normal limits, B1 is 38 and creatinine was 1.48. Patient reports no nausea, vomiting, no diarrhea. She was started on oral Omnicef, nebulized bronchodilators and IV steroids. Patient is on a combination of Breo-Ellipta and DuoNeb nebs at home. We were asked to see this patient in evaluation for COPD exacerbation The patient is seen today 04/01/2019 in follow-up on the regular medical floor. He is currently resting in bed. Still somewhat bronchospastic and wheezy. Still not back to his baseline. Continues with a productive cough. Sputum culture pending. He is continued on DuoNeb inhalations, Pulmicort and Perforomist inhalations, IV Solu-Medrol. Antibiotics in the form of Omnicef. On 04/02/2019 the patient is feeling slightly better compared to yesterday. He remains bronchospastic and wheezy and shortness of breath with limited amount of activity. No chest pain. No hemoptysis or pleurisy. No altered mentation. The sputum cultures positive for Haemophilus influenza and the patient is currently on oral Omnicef 300 mg by mouth twice a day. He remains on IV Solu- Medrol 60 mg IV push every 6 hours. Objective - Vital Signs Vital signs: Vital Signs Temp 98.2 F 04/02/19 14:20 Pulse 78 04/02/19 15:03 Resp 16 04/02/19 14:20 BP 129/67 04/02/19 14:20 Pulse Ox 94 L 04/02/19 14:20 Intake & Output 04/01/19 04/02/19 04/02/19 18:59 06:59 18:59 Intake Total 550 200 Balance 550 200 Weight 56.608 kg Intake: Oral 550 200 Other: Voiding Method Toilet Toilet Toilet # Voids 1 2 2 # Bowel Movements 0 - Exam GENERAL EXAM: Alert, pleasant 84-year-old gentleman on 2 L nasal cannula, comfortable in no apparent distress. HEAD: Normocephalic. EYES: Normal reaction of pupils, equal size. NOSE: Clear with pink turbinates. THROAT: No erythema or exudates. NECK: No masses, no JVD. CHEST: No chest wall deformity. LUNGS: Equal air entry with bilateral end expiratory wheeze, diminished, few scattered rhonchi. CVS: S1 and S2 normal with no audible murmur, regular rhythm. ABDOMEN: No hepatosplenomegaly, normal bowel sounds, no guarding or rigidity. SPINE: No scoliosis or deformity SKIN: No rashes CENTRAL NERVOUS SYSTEM: No focal deficits, tone is normal in all 4 extremities. EXTREMITIES: There is no peripheral edema. No clubbing, no cyanosis. Peripheral pulses are intact. - Labs CBC & Chem 7: 03/31/19 07:24 03/31/19 07:24 Labs: Microbiology - Last 24 Hours (Table) 03/31/19 13:00 Gram Stain - Final Sputum Sputum Culture - Final Haemophilus influenzae Assessment and Plan Plan: #1. Acute exacerbation of chronic obstructive pulmonary disease with purulent tracheobronchitis secondary to Haemophilus influenza. #2. Acute kidney injury, improved with IV hydration, may be related to diuretic therapy and intravascular volume depletion #3. Advanced steroid-dependent COPD with a baseline FEV1 of 33% of predicted oxygen dependent and steroid dependent at baseline #4. History of nicotine dependence, currently in remission #5. Hypertension #6. Hyperlipidemia #7. Bladder cancer #8. History of deep venous thrombosis, not currently on any anticoagulants Plan Recommend Augmentin regarding the Haemophilus influenza taken bronchitis and COPD exacerbation. Continue IV Solu Medrol with the intention of starting tapering the IV Solu Medrol with the next 24 hours as the patient continues to improve. No new complaints otherwise for now.
--- NOTE | 2019-04-02 21:07 | P.PN ---
Subjective Principal diagnosis: COPD exacerbation Minimal improvement. Still with significant dyspnea. No voiding difficulties. I appreciate pulmonology input. He seems to be improving Objective - Vital Signs Vital signs: Vital Signs Temp 98.2 F 04/02/19 14:20 Pulse 82 04/02/19 19:28 Resp 16 04/02/19 14:20 BP 129/67 04/02/19 14:20 Pulse Ox 94 L 04/02/19 14:20 Intake & Output 04/02/19 04/02/19 04/03/19 06:59 18:59 06:59 Intake Total 550 200 Balance 550 200 Weight 56.608 kg Intake: Oral 550 200 Other: Voiding Method Toilet Toilet # Voids 2 2 0 # Bowel Movements 0 0 - Constitutional General appearance: Present: thin - EENT Eyes: Absent: abnormal pupil - Neck Neck: Absent: lymphadenopathy - Respiratory Respiratory: bilateral: diminished - Cardiovascular Rhythm: regular Heart sounds: normal: S1, S2 Abnormal Heart Sounds: Absent: S3 Gallop - Gastrointestinal General gastrointestinal: Present: soft. Absent: tenderness - Psychiatric Psychiatric: Present: A&O x's 3, appropriate affect - Labs CBC & Chem 7: 03/31/19 07:24 03/31/19 07:24 Labs: Microbiology - Last 24 Hours (Table) 03/31/19 13:00 Gram Stain - Final Sputum Sputum Culture - Final Haemophilus influenzae Assessment and Plan (1) COPD with acute exacerbation Current Visit: No Status: Acute Code(s): J44.1 - CHRONIC OBSTRUCTIVE PULMONARY DISEASE W (ACUTE) EXACERBATION SNOMED Code(s): 853626496 (2) Hypertension Current Visit: No Status: Acute Code(s): I10 - ESSENTIAL (PRIMARY) HYPERTENSION SNOMED Code(s): 15312705 (3) Hypoxia Current Visit: No Status: Acute Code(s): R09.02 - HYPOXEMIA SNOMED Code(s): 081501420 Plan: Continue steroid treatment. No fever or chills. Appetite minimall Appreciate pulmonology input. Check CBC and CMP in AM Time with Patient: Less than 30
[2019-04-02] MEDS: AMOXIC-POT CLAV 875-125MG 1 EACH TAB PO SCH (21:40)
[2019-04-03] MEDS: methylPREDNISolone SOD SUCCI 125 MG/2 ML VIAL IV SCH ×5 (01:11→23:25)
[2019-04-03] MEDS: BUDESONIDE 1 MG/2 ML NEBU INHALATION SCH ×2 (07:10→19:27)
[2019-04-03] MEDS: FORMOTEROL FUMARATE 20 MCG/2 ML NEBU INHALATION SCH ×2 (07:10→19:27)
[2019-04-03] MEDS: IPRATROPIUM-ALBUTEROL 3 ML NEB INHALATION SCH ×4 (07:10→19:27)
[2019-04-03] MEDS: TAMSULOSIN 0.4 MG CAP.ER.24H PO SCH ×2 (07:52→21:40)
[2019-04-03] MEDS: FUROSEMIDE 20 MG TAB PO SCH (07:52)
[2019-04-03] MEDS: LISINOPRIL 10 MG TAB PO SCH (07:53)
[2019-04-03] MEDS: CITALOPRAM HYDROBROMIDE 20 MG TAB PO SCH (07:53)
[2019-04-03] MEDS: ATORVASTATIN 20 MG TAB PO SCH (07:53)
[2019-04-03] MEDS: AMOXIC-POT CLAV 875-125MG 1 EACH TAB PO SCH ×2 (07:53→21:40)
--- NOTE | 2019-04-03 09:20 | P.PN ---
Subjective Principal diagnosis: COPD exacerbation Minimal improvement. Still with significant dyspnea. No voiding difficulties. I appreciate pulmonology input. He seems to be improving The patient seems to finishing sentences much easier today. Minimal cough is stated. Objective - Vital Signs Vital signs: Vital Signs Temp 98.3 F 04/03/19 07:00 Pulse 82 04/03/19 07:31 Resp 22 04/03/19 07:00 BP 146/76 04/03/19 07:00 Pulse Ox 94 L 04/03/19 07:10 Intake & Output 04/02/19 04/03/19 04/03/19 18:59 06:59 18:59 Intake Total 200 550 Balance 200 550 Weight 56.608 kg Intake: Oral 200 550 Other: Voiding Method Toilet Toilet # Voids 2 1 # Bowel Movements 0 - Constitutional General appearance: Present: thin - EENT Eyes: Absent: abnormal pupil - Neck Neck: Absent: lymphadenopathy - Respiratory Respiratory: bilateral: diminished, prolonged expiration - Cardiovascular Rhythm: regular Heart sounds: normal: S1, S2 Abnormal Heart Sounds: Absent: S3 Gallop - Gastrointestinal General gastrointestinal: Present: soft. Absent: tenderness - Musculoskeletal Musculoskeletal: Present: gait normal - Psychiatric Psychiatric: Present: A&O x's 3, appropriate affect, intact judgment & insight - Labs CBC & Chem 7: 03/31/19 07:24 03/31/19 07:24 Labs: Microbiology - Last 24 Hours (Table) 03/31/19 13:00 Gram Stain - Final Sputum Sputum Culture - Final Haemophilus influenzae Assessment and Plan (1) COPD with acute exacerbation Current Visit: No Status: Acute Code(s): J44.1 - CHRONIC OBSTRUCTIVE PULMONARY DISEASE W (ACUTE) EXACERBATION SNOMED Code(s): 982754438 (2) Hypertension Current Visit: No Status: Acute Code(s): I10 - ESSENTIAL (PRIMARY) HYPERTENSION SNOMED Code(s): 89739978 (3) Hypoxia Current Visit: No Status: Acute Code(s): R09.02 - HYPOXEMIA SNOMED Code(s): 015198241 Plan: Continue current regimen of treatment with possible taper off Solu-Medrol. Again, appreciate pulmonology input. Check CBC and CMP in a.m. Time with Patient: Less than 30
--- NOTE | 2019-04-03 13:46 | P.PN ---
Subjective Progress Note Date: 04/03/19 Principal diagnosis: Acute exacerbation of chronic obstructive pulmonary disease with purulent tracheobronchitis secondary to Haemophilus influenza This is a 82-year-old male patient of Dr. Elizabeth who also sees Dr. 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 Patient has had the multiple pulmonary complications and pulmonary infections with history of stenotrophomonas in the bronchial wash cultures, treated with Bactrim. Patient smoking history is in remission, other medical history includes hypertension, hyperlipidemia, neoplasm of bladder, history of DVT and patient is currently not on any anticoagulants. On 03/30/2019 patient was sent in from his primary care physician's office where he went for evaluation of worsening dyspnea, cough, congestion, and production of yellow sputum. Denied any fever or chills. Chest x-ray on admission showed diffuse increased mid lung markings, with the possibility of developing pulmonary fibrosis. Admission lab work showed a white blood cell count of 8.5, hemoglobin of 8.2, platelet count is 474, electrodes were within normal limits, B1 is 38 and creatinine was 1.48. Patient reports no nausea, vomiting, no diarrhea. She was started on oral Omnicef, nebulized bronchodilators and IV steroids. Patient is on a combination of Breo-Ellipta and DuoNeb nebs at home. We were asked to see this patient in evaluation for COPD exacerbation The patient is seen today 04/01/2019 in follow-up on the regular medical floor. He is currently resting in bed. Still somewhat bronchospastic and wheezy. Still not back to his baseline. Continues with a productive cough. Sputum culture pending. He is continued on DuoNeb inhalations, Pulmicort and Perforomist inhalations, IV Solu-Medrol. Antibiotics in the form of Omnicef. On 04/02/2019 the patient is feeling slightly better compared to yesterday. He remains bronchospastic and wheezy and shortness of breath with limited amount of activity. No chest pain. No hemoptysis or pleurisy. No altered mentation. The sputum cultures positive for Haemophilus influenza and the patient is currently on oral Omnicef 300 mg by mouth twice a day. He remains on IV Solu- Medrol 60 mg IV push every 6 hours. On 04/03/2019 patient seen in follow-up on medical surgical floor. He is awake and alert, oriented 3, he states he is breathing easier, however still remains quite wheezy on physical exam, but less congested, he's been treated for Haemophilus influenza tracheobronchitis, his been afebrile. He is on 2 L of oxygen with a pulse of 94%. His been tolerating ambulation. Is currently on amoxicillin, and IV steroids in addition to bronchodilators Objective - Vital Signs Vital signs: Vital Signs Temp 98.3 F 04/03/19 07:00 Pulse 84 04/03/19 11:18 Resp 22 04/03/19 07:00 BP 146/76 04/03/19 07:00 Pulse Ox 94 L 04/03/19 07:10 Intake & Output 04/02/19 04/03/19 04/03/19 18:59 06:59 18:59 Intake Total 200 550 840 Balance 200 550 840 Weight 56.608 kg Intake: Oral 200 550 840 Other: Voiding Method Toilet Toilet # Voids 2 1 # Bowel Movements 0 - Exam GENERAL EXAM: Alert, pleasant, cachectic looking white male, and 2 L of oxygen with a pulse ox of 95%, comfortable in no apparent distress. HEAD: Normocephalic/atraumatic. EYES: Normal reaction of pupils, equal size. Conjunctiva pink, sclera white. NOSE: Clear with pink turbinates. THROAT: No erythema or exudates. NECK: No masses, no JVD, no thyroid enlargement, no adenopathy. CHEST: No chest wall deformity. Symmetrical expansion. LUNGS: Equal air entry with diffuse wheezes CVS: Regular rate and rhythm, normal S1 and S2, no gallops, no murmurs, no rubs ABDOMEN: Soft, nontender. No hepatosplenomegaly, normal bowel sounds, no guarding or rigidity. EXTREMITIES: No clubbing, no edema, no cyanosis, 2+ pulses and upper and lower extremities. MUSCULOSKELETAL: Muscle strength and tone normal. SPINE: No scoliosis or deformity SKIN: No rashes CENTRAL NERVOUS SYSTEM: Alert and oriented -3. No focal deficits, tone is normal in all 4 extremities. PSYCHIATRIC: Alert and oriented -3. Appropriate affect. Intact judgment and insight. - Labs CBC & Chem 7: 03/31/19 07:24 03/31/19 07:24 Labs: Microbiology - Last 24 Hours (Table) 03/31/19 13:00 Gram Stain - Final Sputum Sputum Culture - Final Haemophilus influenzae Assessment and Plan Plan: Assessment: #1. Acute exacerbation of chronic obstructive pulmonary disease with purulent tracheobronchitis secondary to Haemophilus influenza #2. Acute kidney injury, improved with IV hydration, may be related to diuretic therapy and intravascular volume depletion #3. Advanced steroid-dependent COPD with a baseline FEV1 of 33% of predicted oxygen dependent and steroid dependent at baseline #4. History of nicotine dependence, currently in remission #5. Hypertension #6. Hyperlipidemia #7. Bladder cancer #8. History of deep venous thrombosis, not currently on any anticoagulants Plan: Continue with current plan and treatment, continue IV steroids, Augmentin, nebulized bronchodilators, patient is stable, he is improving, less congested, no acute events overnight, no fever or chills, anticipate discharge home in the next 24 hours. I performed a history & physical examination of the patient and discussed their management with my nurse practitioner, Dora Abarca. I reviewed the nurse practitioner's note and agree with the documented findings and plan of care. Lung sounds are positive for diffuse wheezes throughout the lung wood. The findings and the impression was discussed with the patient. I attest to the documentation by the nurse practitioner. Time with Patient: Less than 30
[2019-04-04] MEDS: methylPREDNISolone SOD SUCCI 125 MG/2 ML VIAL IV SCH ×2 (05:52→11:36)
[2019-04-04 07:48] LABS: Albumin 3.6 g/dL (3.5-5.0); Calcium 8.8 mg/dL (8.4-10.2); Potassium 5.1 mmol/L (3.5-5.1); Total Bilirubin 0.4 mg/dL (0.2-1.3); Total Protein 7.1 g/dL (6.3-8.2)
[2019-04-04] MEDS: BUDESONIDE 1 MG/2 ML NEBU INHALATION SCH (07:53)
[2019-04-04] MEDS: FORMOTEROL FUMARATE 20 MCG/2 ML NEBU INHALATION SCH (07:53)
[2019-04-04] MEDS: IPRATROPIUM-ALBUTEROL 3 ML NEB INHALATION SCH ×2 (07:53→11:23)
[2019-04-04 08:11] LABS: HCT 30.6 % (39.0-53.0); HGB 9.7 gm/dL (13.0-17.5); Hypochromasia Moderate; MCH 26.5 pg (25.0-35.0); MCHC 31.8 g/dL (31.0-37.0); MCV 83.3 fL (80.0-100.0); Mean Platelet Volume 5.6; Platelet Count 722 k/uL (150-450); RBC 3.67 m/uL (4.30-5.90); RDW 15.7 % (11.5-15.5); WBC 15.6 k/uL (3.8-10.6)
[2019-04-04] MEDS: TAMSULOSIN 0.4 MG CAP.ER.24H PO SCH (09:07)
[2019-04-04] MEDS: LISINOPRIL 10 MG TAB PO SCH (09:07)
[2019-04-04] MEDS: FUROSEMIDE 20 MG TAB PO SCH (09:07)
[2019-04-04] MEDS: CITALOPRAM HYDROBROMIDE 20 MG TAB PO SCH (09:07)
[2019-04-04] MEDS: ATORVASTATIN 20 MG TAB PO SCH (09:07)
[2019-04-04] MEDS: AMOXIC-POT CLAV 875-125MG 1 EACH TAB PO SCH (09:07)
[2019-04-04 12:00] VITALS: BP 126/60; PULSE 77; RESP 18; TEMP 97.6
--- NOTE | 2019-04-04 13:49 | P.PN ---
Subjective Progress Note Date: 04/04/19 Principal diagnosis: Acute exacerbation of chronic obstructive pulmonary disease. This is a 82-year-old male patient of Dr. Elizabeth who also sees Dr. 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 Patient has had the multiple pulmonary complications and pulmonary infections with history of stenotrophomonas in the bronchial wash cultures, treated with Bactrim. Patient smoking history is in remission, other medical history includes hypertension, hyperlipidemia, neoplasm of bladder, history of DVT and patient is currently not on any anticoagulants. The patient is seen today 04/04/2019 in follow-up on the regular medical floor. He is awake and alert in no acute distress. He continues with a loose productive cough. Breathing easier today as compared to yesterday. Sputum was positive for Haemophilus influenza. He count 15.6. Hemoglobin 9.7. Creatinine 1.15. He remains on Augmentin. On IV Solu-Medrol. Objective - Vital Signs Vital signs: Vital Signs Temp 97.6 F 04/04/19 11:16 Pulse 91 04/04/19 11:34 Resp 18 04/04/19 11:16 BP 126/60 04/04/19 11:16 Pulse Ox 94 L 04/04/19 11:16 Intake & Output 04/03/19 04/04/19 04/04/19 18:59 06:59 18:59 Intake Total 840 1200 Balance 840 1200 Intake: Oral 840 1200 Other: Voiding Method Toilet # Voids 2 1 # Bowel Movements 1 - Exam GENERAL EXAM: Alert, pleasant 84-year-old gentleman on 2 L nasal cannula, comfortable in no apparent distress. HEAD: Normocephalic. EYES: Normal reaction of pupils, equal size. NOSE: Clear with pink turbinates. THROAT: No erythema or exudates. NECK: No masses, no JVD. CHEST: No chest wall deformity. LUNGS: Equal air entry with bilateral end expiratory wheeze, diminished, few scattered rhonchi. CVS: S1 and S2 normal with no audible murmur, regular rhythm. ABDOMEN: No hepatosplenomegaly, normal bowel sounds, no guarding or rigidity. SPINE: No scoliosis or deformity SKIN: No rashes CENTRAL NERVOUS SYSTEM: No focal deficits, tone is normal in all 4 extremities. EXTREMITIES: There is no peripheral edema. No clubbing, no cyanosis. Peripheral pulses are intact. - Labs CBC & Chem 7: 04/04/19 07:16 04/04/19 07:16 Labs: Abnormal Lab Results - Last 24 Hours (Table) 04/04/19 04/04/19 Range/Units 07:16 07:16 WBC 15.6 H (3.8-10.6) k/uL RBC 3.67 L (4.30-5.90) m/uL Hgb 9.7 L (13.0-17.5) gm/dL Hct 30.6 L (39.0-53.0) % RDW 15.7 H (11.5-15.5) % Plt Count 722 H (150-450) k/uL Chloride 95 L (98-107) mmol/L Carbon Dioxide 35 H (22-30) mmol/L BUN 54 H (9-20) mg/dL Glucose 128 H (74-99) mg/dL Assessment and Plan Assessment: Assessment: #1. Acute exacerbation of chronic obstructive pulmonary disease with purulent tracheobronchitis, sputum positive for Haemophilus influenza. #2. Acute kidney injury, improved with IV hydration, may be related to diuretic therapy and intravascular volume depletion #3. Advanced steroid-dependent COPD with a baseline FEV1 of 33% of predicted oxygen dependent and steroid dependent at baseline #4. History of nicotine dependence, currently in remission #5. Hypertension #6. Hyperlipidemia #7. Bladder cancer #8. History of deep venous thrombosis, not currently on any anticoagulants Plan: The patient was seen and evaluated by Dr. Winston. He is cleared for discharge from the pulmonary standpoint. Complete a course of Augmentin. Complete a prednisone taper. Continue home oxygen. Continue his home pulmonary medications. Follow-up in the office in 1 week's time. We'll repeat a chest x- ray then. I, the cosigning physician, performed a history & physical examination of the patient. Lungs sounds with bilateral end expiratory wheeze, few scattered rhonchi, diminished Maintaining good O2 saturations in the 90s on 2 L/m per nasal cannula. I discussed the assessment and plan of care with my nurse practitioner, Mary Austin. I attest to the above note as dictated by her.
--- NOTE | 2019-04-04 14:22 | P.DS ---
Providers Date of admission: 04/01/19 20:06 Attending physician: Lobo Elizabeth Consults: 03/30/19 15:25 Consult Physician Routine Consulting Provider: Maria Eugenia Winston Consult Reason/Comments: copd Do you want consulting provider notified?: Yes Primary care physician: Lobo Elizabeth Hospital Course: 84-year-old pleasant gentleman was treated for COPD exacerbation clinically doing well at this time is still wheezing patient has advanced COPD patient is cleared for discharge from my pulmonary perspective patient wheezing is his baseline patient has tracheobronchitis with Haemophilus influenza patient will be discharged on Augmentin PHYSICAL EXAMINATION: GENERAL: The patient is alert and oriented x3, not in any acute distress. Well developed, well nourished. HEENT: Pupils are round and equally reacting to light. EOMI. No scleral icterus. No conjunctival pallor. Normocephalic, atraumatic. No pharyngeal erythema. No thyromegaly. CARDIOVASCULAR: S1 and S2 present. No murmurs, rubs, or gallops. PULMONARY: Expiratory wheezing on exam rhonchus breath sounds ABDOMEN: Soft, nontender, nondistended, normoactive bowel sounds. No palpable organomegaly. MUSCULOSKELETAL: No joint swelling or deformity. EXTREMITIES: No cyanosis, clubbing, or pedal edema. NEUROLOGICAL: Gross neurological examination did not reveal any focal deficits. SKIN: No rashes. Please refer to dictation from [place] for further details of hospitalization course Plan - Discharge Summary New Discharge Prescriptions: New Amoxicillin/Potassium Clav [Augmentin 875-125 Tablet] 1 tab PO Q12HR #14 tab predniSONE 10 mg PO DAILY #30 tab Ranitidine HCl [Zantac] 150 mg PO BID #30 tablet Continue Albuterol Sulfate [Proair Hfa] 2 puff INHALATION RT-Q6H PRN PRN Reason: Shortness Of Breath Simvastatin [Zocor] 40 mg PO DAILY Ipratropium-Albuterol Nebulize [Duoneb 0.5 mg-3 mg/3 ml Soln] 3 ml INHALATION RT-QID predniSONE 5 mg PO DAILY Fluticasone/Vilanterol [Breo Ellipta 200-25 Mcg INH] 1 puff INHALATION RT- DAILY Tamsulosin HCl [Flomax] 0.4 mg PO BID Furosemide [Lasix] 20 mg PO DAILY Citalopram Hydrobromide [CeleXA] 20 mg PO DAILY #30 tab ALPRAZolam [Xanax] 0.5 mg PO TID PRN PRN Reason: Anxiety Lisinopril [Zestril] 10 mg PO DAILY Discharge Medication List Albuterol Sulfate [Proair Hfa] 2 puff INHALATION RT-Q6H PRN 07/10/15 [History] Simvastatin [Zocor] 40 mg PO DAILY 07/10/15 [History] Ipratropium-Albuterol Nebulize [Duoneb 0.5 mg-3 mg/3 ml Soln] 3 ml INHALATION RT-QID 07/11/15 [History] Fluticasone/Vilanterol [Breo Ellipta 200-25 Mcg INH] 1 puff INHALATION RT-DAILY 10/05/16 [History] predniSONE 5 mg PO DAILY 10/05/16 [History] Tamsulosin HCl [Flomax] 0.4 mg PO BID 06/06/17 [History] Furosemide [Lasix] 20 mg PO DAILY 08/16/17 [History] Citalopram Hydrobromide [CeleXA] 20 mg PO DAILY #30 tab 09/18/17 [Rx] ALPRAZolam [Xanax] 0.5 mg PO TID PRN 03/28/18 [History] Lisinopril [Zestril] 10 mg PO DAILY 04/04/18 [History] Amoxicillin/Potassium Clav [Augmentin 875-125 Tablet] 1 tab PO Q12HR #14 tab 04/04/19 [Rx] Ranitidine HCl [Zantac] 150 mg PO BID #30 tablet 04/04/19 [Rx] predniSONE 10 mg PO DAILY #30 tab 04/04/19 [Rx] Follow up Appointment(s)/Referral(s): Lobo Elizabeth MD [Primary Care Provider] - 3 Days (Patient to call Dr. Elizabeth's office Saturday morning to schedule follow up appointment. The office is closed at time of discharge. ) [facility] Visiting Nurse, [NON-STAFF] - Patient Instructions/Handouts: Ranitidine (By mouth), Prednisone (By mouth), Amoxicillin/Clavulanate Potassium (By mouth), COPD (Chronic Obstructive Pulmonary Disease) (DC) Discharge Disposition: HOME WITH HOME HEALTH SERVICES
== END 2019-04-04 13:20 | disposition home health service (06) | DRG 191 ==
LOC: EC 10:54 → 4MS4W 15:25 → OBSVTOIN 04-01 20:06 → 3NMEDONC 04-03 17:39
PROVIDERS: ADMIT Family Medicine; ATTEND Family Medicine
DX: J44.1 Chronic obstructive pulmonary disease with (acute) exacerbation (principal); J96.11 Chronic respiratory failure with hypoxia; N17.9 Acute kidney failure, unspecified; J11.1 Influenza due to unidentified influenza virus with other respiratory manifestations; E78.5 Hyperlipidemia, unspecified; F32.9 Major depressive disorder, single episode, unspecified; F41.9 Anxiety disorder, unspecified; H91.90 Unspecified hearing loss, unspecified ear; I10 Essential (primary) hypertension; N40.0 Benign prostatic hyperplasia without lower urinary tract symptoms; Z79.52 Long term (current) use of systemic steroids; Z79.899 Other long term (current) drug therapy; Z80.1 Family history of malignant neoplasm of trachea, bronchus and lung; Z85.51 Personal history of malignant neoplasm of bladder; Z86.718 Personal history of other venous thrombosis and embolism; Z87.891 Personal history of nicotine dependence; Z99.81 Dependence on supplemental oxygen; Z98.42 Cataract extraction status, left eye; Z98.41 Cataract extraction status, right eye
CPT/HCPCS: 36415; 71046; 80053; 85025; 85027; 87070; 87205; 93005; 94640; 94760; 96374; 99285

== ENCOUNTER 2019-04-14 18:26 | Emergency (ER) | payer MEDICARE ==
[2019-04-14] MEDS ORDERED: SODIUM CHLORIDE 0.9% 500 ML 500 ML IV STA (18:48)
[2019-04-14] MEDS ORDERED: SODIUM CHLORIDE 0.9% 1,000 ML IV STA (18:48)
--- NOTE | 2019-04-14 18:50 | ED ---
Recheck HPI - General Chief Complaint: Recheck/Abnormal Lab/Rx Stated Complaint: Low blood pressure Time Seen by Provider: 04/14/19 18:40 Source: patient, family, RN notes reviewed Mode of arrival: ambulatory Limitations: physical limitation - History of Present Illness Initial Comments: This 84-year-old male with a history of admission recently for COPD exacerbation presents today with complaints of 2 days of hypotension. He has no symptoms no lightheadedness dizziness fevers chills nausea vomiting sweats he states his breathing is normal per his blood pressure had gotten down into the 87/33 range. This started yesterday the last one prior to arrival was 88/43. He states he may not been drinking as much fluids as he should he has no other complaints hour. - Related Data Home Medications Medication Instructions Recorded Confirmed Albuterol Sulfate [Proair Hfa] 2 puff INHALATION RT-Q6H PRN 07/10/15 03/30/19 Simvastatin [Zocor] 40 mg PO DAILY 07/10/15 03/30/19 Ipratropium-Albuterol Nebulize 3 ml INHALATION RT-QID 07/11/15 03/30/19 [Duoneb 0.5 mg-3 mg/3 ml Soln] Fluticasone/Vilanterol [Breo 1 puff INHALATION RT-DAILY 10/05/16 03/30/19 Ellipta 200-25 Mcg INH] predniSONE 5 mg PO DAILY 10/05/16 03/30/19 Tamsulosin HCl [Flomax] 0.4 mg PO BID 06/06/17 03/30/19 Furosemide [Lasix] 20 mg PO DAILY 08/16/17 03/30/19 ALPRAZolam [Xanax] 0.5 mg PO TID PRN 03/28/18 03/30/19 Lisinopril [Zestril] 10 mg PO DAILY 04/04/18 03/30/19 Previous Rx's Medication Instructions Recorded Citalopram Hydrobromide [CeleXA] 20 mg PO DAILY #30 tab 09/18/17 Amoxicillin/Potassium Clav 1 tab PO Q12HR #14 tab 04/04/19 [Augmentin 875-125 Tablet] Ranitidine HCl [Zantac] 150 mg PO BID #30 tablet 04/04/19 predniSONE 10 mg PO DAILY #30 tab 04/04/19 Allergies Allergy/AdvReac Type Severity Reaction Status Date / Time No Known Allergies Allergy Verified 04/14/19 18:35 Review of Systems ROS Statement: Those systems with pertinent positive or pertinent negative responses have been documented in the HPI. ROS Other: All systems not noted in ROS Statement are negative. Past Medical History Past Medical History: Cancer, Chest Pain / Angina, COPD, Deep Vein Thrombosis (DVT), Eye Disorder, Hearing Disorder / Deafness, Hyperlipidemia, Hypertension, Osteoarthritis (OA), Pneumonia, Prostate Disorder, Renal Disease Additional Past Medical History / Comment(s): Severe COPD with an FEV1 of 33% of predicted, chronic hypoxic respiratory failure, recurrent hospitalization for COPD exacerbation, stenotrophomonas tracheal bronchitis - HAD PFT 03/04/18. Bladder Cancer w/ prev surgery. RLE DVT. BPH. Chronic Back Pain. VARICOSE VEINS. O2 2L NC. ACUTE RENAL FAILURE 09/2017 R/T DEHYDRATION/DEPRESSION, PER . History of Any Multi-Drug Resistant Organisms: None Reported Past Surgical History: Bladder Surgery, Hernia Repair, Tonsillectomy Additional Past Surgical History / Comment(s): Bladder CA Surgery, Vasectomy. BRONCHIAL WASHING. EXC CATARACTS CARLOS., Past Anesthesia/Blood Transfusion Reactions: No Reported Reaction Past Psychological History: Anxiety, Depression Smoking Status: Former smoker Past Alcohol Use History: None Reported Past Drug Use History: None Reported - Past Family History Father Family Medical History: Cancer Additional Family Medical History / Comment(s): Father had scoliosis. Father of lung cancer Mother History Unknown: Yes Family Medical History: CVA/TIA Additional Family Medical History / Comment(s): Mother . Unknown history General Exam - General Exam Comments Initial Comments: This a well-developed asthenic appearing male who is awake alert oriented 3 Limitations: physical limitation General appearance: alert Head exam: Present: atraumatic, normocephalic, normal inspection Eye exam: Present: normal appearance, PERRL, EOMI. Absent: scleral icterus, conjunctival injection, periorbital swelling ENT exam: Present: mucous membranes dry Neck exam: Present: normal inspection. Absent: tenderness, meningismus, lymphadenopathy Respiratory exam: Present: normal lung sounds bilaterally. Absent: respiratory distress, wheezes, rales, rhonchi, stridor Cardiovascular Exam: Present: regular rate, normal rhythm, normal heart sounds. Absent: systolic murmur, diastolic murmur, rubs, gallop, clicks GI/Abdominal exam: Present: soft, normal bowel sounds. Absent: distended, te nderness, guarding, rebound, rigid Extremities exam: Present: normal inspection, full ROM, normal capillary refill. Absent: tenderness, pedal edema, joint swelling, calf tenderness Back exam: Present: normal inspection Neurological exam: Present: alert, oriented X3, CN II-XII intact Psychiatric exam: Present: normal affect, normal mood Skin exam: Present: warm, dry, intact, normal color. Absent: rash Course Vital Signs 04/14/19 04/14/19 18:32 19:41 Temperature 98.4 F Pulse Rate 98 91 Respiratory 24 18 Rate Blood Pressure 110/60 131/60 O2 Sat by Pulse 97 100 Oximetry - Reevaluation(s) Reevaluation #1: 04/14/19 20:13 Patient is feeling improved after IV fluids his blood pressure is normalized. Medical Decision Making - Medical Decision Making Patient presentation consistent with dehydration with episodic hypotension patient was instructed to increase his oral fluids - Lab Data Result diagrams: 04/14/19 18:58 04/14/19 18:58 Lab Results 04/14/19 04/14/19 04/14/19 Range/Units 18:58 18:58 18:58 WBC 11.0 H (3.8-10.6) k/uL RBC 3.07 L (4.30-5.90) m/uL Hgb 8.3 L (13.0-17.5) gm/dL Hct 26.2 L (39.0-53.0) % MCV 85.2 (80.0-100.0) fL MCH 27.2 (25.0-35.0) pg MCHC 31.9 (31.0-37.0) g/dL RDW 17.1 H (11.5-15.5) % Plt Count 356 (150-450) k/uL Neutrophils % 88 % Lymphocytes % 6 % Monocytes % 5 % Eosinophils % 1 % Basophils % 0 % Neutrophils # 9.6 H (1.3-7.7) k/uL Lymphocytes # 0.6 L (1.0-4.8) k/uL Monocytes # 0.5 (0-1.0) k/uL Eosinophils # 0.1 (0-0.7) k/uL Basophils # 0.0 (0-0.2) k/uL Hypochromasia Slight Anisocytosis Slight Sodium 140 (137-145) mmol/L Potassium 4.5 (3.5-5.1) mmol/L Chloride 102 (98-107) mmol/L Carbon Dioxide 31 H (22-30) mmol/L Anion Gap 7 mmol/L BUN 45 H (9-20) mg/dL Creatinine 1.31 H (0.66-1.25) mg/dL Est GFR (CKD-EPI)AfAm 58 (>60 ml/min/1.73 sqM) Est GFR (CKD-EPI)NonAf 50 (>60 ml/min/1.73 sqM) Glucose 148 H (74-99) mg/dL Calcium 8.2 L (8.4-10.2) mg/dL Magnesium 2.4 H (1.6-2.3) mg/dL Total Bilirubin 0.3 (0.2-1.3) mg/dL AST 20 (17-59) U/L ALT 24 (21-72) U/L Alkaline Phosphatase 63 (38-126) U/L Creatine Kinase 44 L (55-170) U/L Troponin I <0.012 (0.000-0.034) ng/mL Total Protein 6.0 L (6.3-8.2) g/dL Albumin 3.1 L (3.5-5.0) g/dL Urine Color Urine Appearance (Clear) Urine pH (5.0-8.0) Ur Specific [facility] (1.001-1.035) Urine Protein (Negative) Urine Glucose (UA) (Negative) Urine Ketones (Negative) Urine Blood (Negative) Urine Nitrite (Negative) Urine Bilirubin (Negative) Urine Urobilinogen (<2.0) mg/dL Ur Leukocyte Esterase (Negative) 04/14/19 Range/Units 19:30 WBC (3.8-10.6) k/uL RBC (4.30-5.90) m/uL Hgb (13.0-17.5) gm/dL Hct (39.0-53.0) % MCV (80.0-100.0) fL MCH (25.0-35.0) pg MCHC (31.0-37.0) g/dL RDW (11.5-15.5) % Plt Count (150-450) k/uL Neutrophils % % Lymphocytes % % Monocytes % % Eosinophils % % Basophils % % Neutrophils # (1.3-7.7) k/uL Lymphocytes # (1.0-4.8) k/uL Monocytes # (0-1.0) k/uL Eosinophils # (0-0.7) k/uL Basophils # (0-0.2) k/uL Hypochromasia Anisocytosis Sodium (137-145) mmol/L Potassium (3.5-5.1) mmol/L Chloride (98-107) mmol/L Carbon Dioxide (22-30) mmol/L Anion Gap mmol/L BUN (9-20) mg/dL Creatinine (0.66-1.25) mg/dL Est GFR (CKD-EPI)AfAm (>60 ml/min/1.73 sqM) Est GFR (CKD-EPI)NonAf (>60 ml/min/1.73 sqM) Glucose (74-99) mg/dL Calcium (8.4-10.2) mg/dL Magnesium (1.6-2.3) mg/dL Total Bilirubin (0.2-1.3) mg/dL AST (17-59) U/L ALT (21-72) U/L Alkaline Phosphatase (38-126) U/L Creatine Kinase (55-170) U/L Troponin I (0.000-0.034) ng/mL Total Protein (6.3-8.2) g/dL Albumin (3.5-5.0) g/dL Urine Color Yellow Urine Appearance Clear (Clear) Urine pH 6.0 (5.0-8.0) Ur Specific [facility] 1.013 (1.001-1.035) Urine Protein Negative (Negative) Urine Glucose (UA) Negative (Negative) Urine Ketones Negative (Negative) Urine Blood Negative (Negative) Urine Nitrite Negative (Negative) Urine Bilirubin Negative (Negative) Urine Urobilinogen <2.0 (<2.0) mg/dL Ur Leukocyte Esterase Negative (Negative) Disposition Clinical Impression: Hypotensive episode, Dehydration, Renal insufficiency syndrome Disposition: HOME SELF-CARE Condition: Good Instructions (If sedation given, give patient instructions): Dehydration (ED), Hypotension (ED) Is patient prescribed a controlled substance at d/c from ED?: No Referrals: Lobo Elizabeth MD [Primary Care Provider] - 1-2 days
[2019-04-14 19:10] LABS: Anisocytosis Slight; Basophils % (A) 0 %; Eosinophils # (A) 0.1 k/uL (0-0.7); Eosinophils % (A) 1 %; HCT 26.2 % (39.0-53.0); HGB 8.3 gm/dL (13.0-17.5); Hypochromasia Slight; Lymphocytes # (A) 0.6 k/uL (1.0-4.8); Lymphocytes % (A) 6 %; MCH 27.2 pg (25.0-35.0); MCHC 31.9 g/dL (31.0-37.0); MCV 85.2 fL (80.0-100.0); Mean Platelet Volume 5.9; Monocytes # (A) 0.5 k/uL (0-1.0); Monocytes % (A) 5 %; Neutrophils # (A) 9.6 k/uL (1.3-7.7); Neutrophils % (A) 88 %; Platelet Count 356 k/uL (150-450); RBC 3.07 m/uL (4.30-5.90); RDW 17.1 % (11.5-15.5)
[2019-04-14 19:20] LABS: Albumin 3.1 g/dL (3.5-5.0); Calcium 8.2 mg/dL (8.4-10.2); Magnesium 2.4 mg/dL (1.6-2.3); Potassium 4.5 mmol/L (3.5-5.1); Total Bilirubin 0.3 mg/dL (0.2-1.3)
[2019-04-14 19:40] LABS: Appearance,Urine Clear (Clear); Bilirubin,Urine Negative (Negative); Blood,Urine Negative (Negative); Color,Urine Yellow; Glucose,Urine (UA) Negative (Negative); Ketones,Urine Negative (Negative); Leukocyte Esterase,Urine Negative (Negative); Nitrite,Urine Negative (Negative); Protein,Urine Negative (Negative); Specific Gravity,Urine 1.013 (1.001-1.035); Urobilinogen,Urine <2.0 mg/dL (<2.0)
[2019-04-14 19:41] VITALS: RESP 18
[2019-04-14 20:51] VITALS: BP 150/82; PULSE 86; TEMP 98.2
== END 2019-04-14 20:59 | disposition home or self-care (01) ==
LOC: EC 18:26
DX: I95.9 Hypotension, unspecified (principal); E86.0 Dehydration; N28.9 Disorder of kidney and ureter, unspecified; J44.9 Chronic obstructive pulmonary disease, unspecified; E78.5 Hyperlipidemia, unspecified; I10 Essential (primary) hypertension; F41.9 Anxiety disorder, unspecified; F32.9 Major depressive disorder, single episode, unspecified; Z79.51 Long term (current) use of inhaled steroids; Z79.899 Other long term (current) drug therapy; Z87.891 Personal history of nicotine dependence; Z85.51 Personal history of malignant neoplasm of bladder; Z86.718 Personal history of other venous thrombosis and embolism
CPT/HCPCS: 36415; 80053; 81003; 82550; 83735; 84484; 85025; 93005; 96360; 96361; 99284

== ENCOUNTER → 2021-01-19 | Outpatient (CLI) | payer MEDICARE ==
[2021-01-19 18:10] LABS: Basophils # (A) 0.04 X 10*3/uL (0.00-0.10); Basophils % (A) 0.5 %; Eosinophils # (A) 0.13 X 10*3/uL (0.04-0.35); Eosinophils % (A) 1.5 %; HCT 26.2 % (39.6-50.0); HGB 7.4 g/dL (13.0-17.0); Lymphocytes % (A) 11.5 %; MCH 22.8 pg (27.0-32.0); MCHC 28.2 g/dL (32.0-37.0); MCV 80.6 fL (80.0-97.0); Mean Platelet Volume 9.8 fL (9.5-12.2); Monocytes # (A) 0.61 X 10*3/uL (0.20-1.00); Neutrophils % (A) 79.2 %; Platelet Count 509 X 10*3/uL (140-440); RBC 3.25 X 10*6/uL (4.40-5.60); RDW 17.3 % (11.5-14.5); WBC 8.71 X 10*3/uL (4.50-10.00)
[2021-01-20 04:37] LABS: % Iron Saturation 4.73 (15.00-50.00); Ferritin 13.2 ng/mL (22.0-322.0)
== END | disposition home or self-care (01) ==
LOC: LABWHC1 12:19
PROVIDERS: ATTEND Nurse Practitioner
DX: D50.9 Iron deficiency anemia, unspecified (principal)
CPT/HCPCS: 36415; 82272; 82728; 83540; 83550; 85025

== ENCOUNTER 2022-04-20 14:40 | Inpatient (IN) | payer MEDICARE ==
[2022-04-20 15:38] LABS: Basophils % (A) 0 %; Eosinophils # (A) 0.1 k/uL (0-0.7); Eosinophils % (A) 1 %; HCT 32.8 % (39.0-53.0); HGB 10.4 gm/dL (13.0-17.5); Hypochromasia Moderate; Lymphocytes # (A) 1.3 k/uL (1.0-4.8); Lymphocytes % (A) 16 %; MCH 29.7 pg (25.0-35.0); MCHC 31.8 g/dL (31.0-37.0); MCV 93.2 fL (80.0-100.0); Mean Platelet Volume 7.5; Monocytes # (A) 0.6 k/uL (0-1.0); Monocytes % (A) 7 %; Neutrophils # (A) 5.9 k/uL (1.3-7.7); Neutrophils % (A) 73 %; Platelet Count 333 k/uL (150-450); RBC 3.52 m/uL (4.30-5.90); WBC 8.1 k/uL (3.8-10.6)
[2022-04-20 15:47] LABS: Albumin 4.1 g/dL (3.5-5.0); Calcium 8.8 mg/dL (8.4-10.2); Total Bilirubin 0.3 mg/dL (0.2-1.3); Total Protein 7.2 g/dL (6.3-8.2)
[2022-04-20 15:54] LABS: INR 0.9 (<1.2); Partial Thromboplastin Time 25.4 sec (22.0-30.0); Prothrombin Time 9.8 sec (9.0-12.0)
--- NOTE | 2022-04-20 15:54 | XR ---
EXAMINATION TYPE: XR chest 2V DATE OF EXAM: 04/20/2022 COMPARISON: 04/01/2019 HISTORY: 87 year-old male shortness of breath, difficulty breathing TECHNIQUE: PA and lateral views FINDINGS: Heart normal size. Aorta and pulmonary vasculature within normal limits. Inflation. No consolidation or pleural effusion. Nodular density at the right base may reflect nipple shadow. IMPRESSION: COPD without acute process. Nodular density at the right base may reflect nipple shadow. However, giv en the patient's increased risk for the development of lung cancer, nonemergent CT chest is recommend ed to exclude a suspicious underlying pulmonary nodule.
[2022-04-20] MEDS ORDERED: IPRATROPIUM-ALBUTEROL 3 ML NEB INHALATION STA (19:00)
[2022-04-20] MEDS ORDERED: NITROGLYCERIN SL TABS 0.4 MG TAB SUBLINGUAL PRN (19:03)
[2022-04-20] MEDS ORDERED: ASPIRIN 81 MG PO STA (19:03)
--- NOTE | 2022-04-20 19:03 | ED ---
General Adult HPI - General Chief complaint: Shortness of Breath Stated complaint: SOB Time Seen by Provider: 04/20/22 18:07 Source: patient, RN notes reviewed Mode of arrival: ambulatory Limitations: no limitations - History of Present Illness Initial comments: Patient is a pleasant 87-year-old male presenting to the emergency department with concerns with episodes of chest discomfort and dyspnea. Symptoms occurred more this morning. Patient had 5 or so episodes lasting a couple of minutes each. None in the past couple hours. Patient had discomfort in his chest with associated dyspnea and some nausea. No history of similar symptoms previously. Currently patient is symptom-free. - Related Data Home Medications Medication Instructions Recorded Confirmed Albuterol Sulfate [Proair Hfa] 2 puff INHALATION RT-Q6H PRN 07/10/15 04/14/19 Simvastatin [Zocor] 40 mg PO DAILY 07/10/15 04/14/19 Ipratropium-Albuterol Nebulize 3 ml INHALATION RT-QID 07/11/15 04/14/19 [Duoneb 0.5 mg-3 mg/3 ml Soln] Fluticasone/Vilanterol [Breo 1 puff INHALATION RT-DAILY 10/05/16 04/14/19 Ellipta 200-25 Mcg Inhaler] predniSONE 5 mg PO DAILY 10/05/16 04/14/19 Tamsulosin HCl [Flomax] 0.4 mg PO BID 06/06/17 04/14/19 Furosemide [Lasix] 20 mg PO DAILY 08/16/17 04/14/19 ALPRAZolam [Xanax] 0.5 mg PO TID PRN 03/28/18 04/14/19 lisinopriL [Zestril] 10 mg PO DAILY 04/04/18 04/14/19 Previous Rx's Medication Instructions Recorded Citalopram Hydrobromide [CeleXA] 20 mg PO DAILY #30 tab 09/18/17 Allergies Allergy/AdvReac Type Severity Reaction Status Date / Time No Known Allergies Allergy Verified 04/14/19 20:45 Review of Systems ROS Statement: Those systems with pertinent positive or pertinent negative responses have been documented in the HPI. ROS Other: All systems not noted in ROS Statement are negative. Constitutional: Denies: fever Eyes: Denies: eye pain ENT: Denies: ear pain Respiratory: Reports: as per HPI Cardiovascular: Reports: as per HPI, chest pain Gastrointestinal: Denies: abdominal pain Genitourinary: Denies: dysuria Musculoskeletal: Denies: back pain Skin: Denies: rash Neurological: Denies: weakness Past Medical History Past Medical History: Cancer, Chest Pain / Angina, COPD, Deep Vein Thrombosis (DVT), Eye Disorder, Hearing Disorder / Deafness, Hyperlipidemia, Hypertension, Osteoarthritis (OA), Pneumonia, Prostate Disorder, Renal Disease Additional Past Medical History / Comment(s): Severe COPD with an FEV1 of 33% of predicted, chronic hypoxic respiratory failure, recurrent hospitalization for COPD exacerbation, stenotrophomonas tracheal bronchitis - HAD PFT 03/04/18. Bladder Cancer w/ prev surgery. RLE DVT. BPH. Chronic Back Pain. VARICOSE VEINS. O2 2L NC. ACUTE RENAL FAILURE 09/2017 R/T DEHYDRATION/DEPRESSION, PER . History of Any Multi-Drug Resistant Organisms: None Reported Past Surgical History: Bladder Surgery, Hernia Repair, Tonsillectomy Additional Past Surgical History / Comment(s): Bladder CA Surgery, Vasectomy. BRONCHIAL WASHING. EXC CATARACTS CARLOS., Past Anesthesia/Blood Transfusion Reactions: No Reported Reaction Past Psychological History: Anxiety, Depression Smoking Status: Never smoker Past Alcohol Use History: None Reported Past Drug Use History: None Reported - Past Family History Father Family Medical History: Cancer Additional Family Medical History / Comment(s): Father had scoliosis. Father of lung cancer Mother History Unknown: Yes Family Medical History: CVA/TIA Additional Family Medical History / Comment(s): Mother . Unknown history General Exam Limitations: no limitations General appearance: alert, in no apparent distress Head exam: Present: normocephalic Eye exam: Present: normal appearance Neck exam: Present: normal inspection Respiratory exam: Present: normal lung sounds bilaterally Cardiovascular Exam: Present: regular rate, normal rhythm Expanded Peripheral pulses: 2+: Radial (R), Radial (L), Posterior Tibialis (R), Posterior Tibialis (L) GI/Abdominal exam: Present: soft. Absent: tenderness Extremities exam: Present: normal inspection. Absent: pedal edema, calf tenderness Neurological exam: Present: alert Psychiatric exam: Present: normal affect, normal mood Skin exam: Present: normal color Course Vital Signs 04/20/22 15:00 Temperature 97.6 F Pulse Rate 87 Respiratory 18 Rate Blood Pressure 163/81 O2 Sat by Pulse 96 Oximetry Medical Decision Making - Medical Decision Making Patient updated on results and plan. Case was discussed with Dr. Feng, who will admit covering for Dr. Elizabeth. - Lab Data Result diagrams: 04/20/22 15:26 04/20/22 15:26 Lab Results 04/20/22 04/20/22 04/20/22 Range/Units 15:26 15:26 15:26 WBC 8.1 (3.8-10.6) k/uL RBC 3.52 L (4.30-5.90) m/uL Hgb 10.4 L (13.0-17.5) gm/dL Hct 32.8 L (39.0-53.0) % MCV 93.2 (80.0-100.0) fL MCH 29.7 (25.0-35.0) pg MCHC 31.8 (31.0-37.0) g/dL RDW 15.0 (11.5-15.5) % Plt Count 333 (150-450) k/uL MPV 7.5 Neutrophils % 73 % Lymphocytes % 16 % Monocytes % 7 % Eosinophils % 1 % Basophils % 0 % Neutrophils # 5.9 (1.3-7.7) k/uL Lymphocytes # 1.3 (1.0-4.8) k/uL Monocytes # 0.6 (0-1.0) k/uL Eosinophils # 0.1 (0-0.7) k/uL Basophils # 0.0 (0-0.2) k/uL Hypochromasia Moderate PT 9.8 (9.0-12.0) sec INR 0.9 (<1.2) APTT 25.4 (22.0-30.0) sec Sodium 140 (137-145) mmol/L Potassium 5.0 (3.5-5.1) mmol/L Chloride 104 (98-107) mmol/L Carbon Dioxide 26 (22-30) mmol/L Anion Gap 10 mmol/L BUN 31 H (9-20) mg/dL Creatinine 2.03 H (0.66-1.25) mg/dL Est GFR (CKD-EPI)AfAm 33 (>60 ml/min/1.73 sqM) Est GFR (CKD-EPI)NonAf 29 (>60 ml/min/1.73 sqM) Glucose 82 (74-99) mg/dL Plasma Lactic Acid Ye (0.7-2.0) mmol/L Calcium 8.8 (8.4-10.2) mg/dL Total Bilirubin 0.3 (0.2-1.3) mg/dL AST 22 (17-59) U/L ALT 16 (4-49) U/L Alkaline Phosphatase 86 (38-126) U/L Troponin I (0.000-0.034) ng/mL NT-Pro-B Natriuret Pep pg/mL Total Protein 7.2 (6.3-8.2) g/dL Albumin 4.1 (3.5-5.0) g/dL 04/20/22 04/20/22 04/20/22 Range/Units 15:26 15:26 15:26 WBC (3.8-10.6) k/uL RBC (4.30-5.90) m/uL Hgb (13.0-17.5) gm/dL Hct (39.0-53.0) % MCV (80.0-100.0) fL MCH (25.0-35.0) pg MCHC (31.0-37.0) g/dL RDW (11.5-15.5) % Plt Count (150-450) k/uL MPV Neutrophils % % Lymphocytes % % Monocytes % % Eosinophils % % Basophils % % Neutrophils # (1.3-7.7) k/uL Lymphocytes # (1.0-4.8) k/uL Monocytes # (0-1.0) k/uL Eosinophils # (0-0.7) k/uL Basophils # (0-0.2) k/uL Hypochromasia PT (9.0-12.0) sec INR (<1.2) APTT (22.0-30.0) sec Sodium (137-145) mmol/L Potassium (3.5-5.1) mmol/L Chloride (98-107) mmol/L Carbon Dioxide (22-30) mmol/L Anion Gap mmol/L BUN (9-20) mg/dL Creatinine (0.66-1.25) mg/dL Est GFR (CKD-EPI)AfAm (>60 ml/min/1.73 sqM) Est GFR (CKD-EPI)NonAf (>60 ml/min/1.73 sqM) Glucose (74-99) mg/dL Plasma Lactic Acid Ye 1.3 (0.7-2.0) mmol/L Calcium (8.4-10.2) mg/dL Total Bilirubin (0.2-1.3) mg/dL AST (17-59) U/L ALT (4-49) U/L Alkaline Phosphatase (38-126) U/L Troponin I 0.015 (0.000-0.034) ng/mL NT-Pro-B Natriuret Pep 1110 pg/mL Total Protein (6.3-8.2) g/dL Albumin (3.5-5.0) g/dL - Radiology Data Radiology results: image reviewed (Chest x-ray shows no acute process) Disposition Clinical Impression: Chest pain Disposition: ADMITTED IP TO THIS HOSP Is patient prescribed a controlled substance at d/c from ED?: No Referrals: Lobo Elizabeth MD [Primary Care Provider] - 1-2 days Time of Disposition: 19:03
[2022-04-20] MEDS ORDERED: ALPRAZolam 0.5 MG TAB PO PRN (21:50)
[2022-04-20] MEDS ORDERED: SODIUM CHLORIDE 0.9% 1,000 ML IV SCH (22:00)
[2022-04-20] MEDS: LATANOPROST 0.005% OPHTH DROPS 2.5 ML BTL BOTH EYES SCH (22:21)
[2022-04-20] MEDS: HEPARIN SODIUM,PORCINE/PF 5,000 UNIT/0.5 ML SYRINGE SQ SCH (22:21)
[2022-04-21] MEDS: ATORVASTATIN 20 MG TAB PO SCH (07:39)
[2022-04-21] MEDS: predniSONE 5 MG TAB PO SCH (07:39)
[2022-04-21] MEDS: FERROUS SULFATE 325 MG TAB PO SCH (07:39)
[2022-04-21] MEDS: CITALOPRAM HYDROBROMIDE 20 MG TAB PO SCH (07:39)
[2022-04-21] MEDS: HEPARIN SODIUM,PORCINE/PF 5,000 UNIT/0.5 ML SYRINGE SQ SCH ×3 (07:39→23:41)
[2022-04-21 08:55] LABS: Basophils # (A) 0.04 X 10*3/uL (0.00-0.10); Basophils % (A) 0.6 %; Eosinophils # (A) 0.49 X 10*3/uL (0.04-0.35); Eosinophils % (A) 7.8 %; HCT 29.2 % (39.6-50.0); HGB 9.2 g/dL (13.0-17.0); Immature Grans, Automated 0.6 %; Lymphocytes # (A) 1.29 X 10*3/uL (0.90-5.00); Lymphocytes % (A) 20.4 %; MCH 29.2 pg (27.0-32.0); MCHC 31.5 g/dL (32.0-37.0); MCV 92.7 fL (80.0-97.0); Mean Platelet Volume 9.8 fL (9.5-12.2); Monocytes % (A) 14.3 %; NRBC Per 100 WBC 0 /100 WBCS (0.0-0.0); Neutrophils # (A) 3.55 X 10*3/uL (1.80-7.70); Neutrophils % (A) 56.3 %; Platelet Count 327 X 10*3/uL (140-440); RBC 3.15 X 10*6/uL (4.40-5.60); RDW 15.5 % (11.5-14.5); WBC 6.31 X 10*3/uL (4.50-10.00)
[2022-04-21 09:00] LABS: African American GFR (CKD) 35.3 (60.0-200.0); BUN/Creat Ratio 14.72 Ratio (12.00-20.00); Blood Urea Nitrogen 28.4 mg/dL (9.0-27.0); Calcium 8.2 mg/dL (8.7-10.3); Carbon Dioxide 23.5 mmol/L (20.0-27.5); Chloride 107 mmol/L (96-109); Chol/HDL Ratio 3.29 Ratio; Glucose 89 mg/dL (70-110); LDL Cholesterol,Calculated 109.1 mg/dL (0.0-131.0); Non-African American GFR(CKD) 30.4 (60.0-200.0); Potassium 4.4 mmol/L (3.5-5.5); Sodium 140 mmol/L (135-145); VLDL Calculation 14.12 mg/dL (5.00-40.00)
[2022-04-21] MEDS ORDERED: amLODIPine 2.5 MG TAB PO SCH (09:00)
[2022-04-21] MEDS ORDERED: ASPIRIN 325 MG TAB PO SCH (09:00)
[2022-04-21] MEDS: PANTOPRAZOLE 40 MG TABLET PO SCH ×2 (10:22→19:21)
[2022-04-21 10:38] LABS: Appearance,Urine Turbid (Clear); Bacteria,Urine Few /hpf; Bilirubin,Urine Negative (Negative); Blood,Urine Moderate (Negative); Color,Urine Light Yellow; Glucose,Urine (UA) Negative (Negative); Ketones,Urine Negative (Negative); Leukocyte Esterase,Urine Large (Negative); Mucus,Urine Rare /hpf; Nitrite,Urine Negative (Negative); PH, Urine 6.5 (5.0-8.0); Protein,Urine Trace (Negative); RBC,Urine 122 /hpf (0-5); Specific Gravity,Urine 1.013 (1.001-1.035); Squamous Epithelial Cell,Urine <1 /hpf (0-4); Urobilinogen,Urine <2.0 mg/dL (<2.0); WBC,Urine >182 /hpf (0-5)
[2022-04-21] MEDS ORDERED: BUDESONIDE 0.5 MG/2 ML NEBU INHALATION SCH (11:30)
--- NOTE | 2022-04-21 11:32 | P.HPIM ---
History of Present Illness This is a pleasant 87 years old male with multiple medical problems including Chest Pain / Angina, COPD, Deep Vein Thrombosis , not on anticoagulation, hearing difficulty, hypertension, hyperlipidemia, osteoarthritis, chronic hypoxi c respiratory failure, bladder cancer surgery and vasectomy, anxiety and depression Patient presents because of chest tightness that started 2 days one day ago with more cough and phlegm than usual and dyspnea. Patient denies any chest pain and even when asking specifically he confirms no chest pain. No dizziness. No diarrhea or vomiting, no change in frequency of urination, no headache or weak ness or numbness Patient is afebrile and vitals stable Hemoglobin 9.2, creatinine 1.9, compared to 2.0 yesterday Urine analysis showing evidence of infection EKG: Normal sinus rhythm with no significant ST-T changes Chest x-ray: No acute process. COPD changes with no acute process. Nodular density on the right base may reflect the pulse should've however during patient increased risk of development of lung cancer none emergency to the chest is recommended to exclude suspicious underlying pulmonary nodule Review of Systems Review of systems CONSTITUTIONAL: No fever, no malaise, no fatigue. HEENT: No recent visual problems or hearing problems. Denied any sore throat. CARDIOVASCULAR: No orthopnea, PND, no palpitations, no syncope. PULMONARY: No chest wall tenderness, no hemoptysis. GASTROINTESTINAL: No diarrhea, no nausea, no vomiting, no abdominal pain. Normoactive bowel sounds. NEUROLOGICAL: No headaches, no weakness, no numbness. HEMATOLOGICAL: Denies any bleeding or petechiae. GENITOURINARY: Denies any burning micturition, frequency, or urgency. MUSCULOSKELETAL/RHEUMATOLOGICAL: Denies any joint pain, swelling, or any muscle pain. ENDOCRINE: Denies any polyuria or polydipsia. Past Medical History Past Medical History: Cancer, Chest Pain / Angina, COPD, Deep Vein Thrombosis (DVT), Eye Disorder, Hearing Disorder / Deafness, Hyperlipidemia, Hypertension, Osteoarthritis (OA), Pneumonia, Prostate Disorder, Renal Disease Additional Past Medical History / Comment(s): Severe COPD with an FEV1 of 33% of predicted, chronic hypoxic respiratory failure, recurrent hospitalization for COPD exacerbation, stenotrophomonas tracheal bronchitis - HAD PFT 03/04/18. Bladder Cancer w/ prev surgery. RLE DVT. BPH. Chronic Back Pain. VARICOSE VEINS. O2 2L NC. ACUTE RENAL FAILURE 09/2017 R/T DEHYDRATION/DEPRESSION, PER . History of Any Multi-Drug Resistant Organisms: None Reported Past Surgical History: Bladder Surgery, Hernia Repair, Tonsillectomy Additional Past Surgical History / Comment(s): Bladder CA Surgery, Vasectomy. BRONCHIAL WASHING. EXC CATARACTS CARLOS., Past Anesthesia/Blood Transfusion Reactions: No Reported Reaction Past Psychological History: Anxiety, Depression Additional Psychological History / Comment(s): Pt resides with his spouse in a single level home that has 4 porchs steps..pt drives. He has a nebulizer, 02 uses prn. He has [facility] home care. Smoking Status: Never smoker Past Alcohol Use History: None Reported Additional Past Alcohol Use History / Comment(s): Pt started smoking in 5 and quit in 1999. At one time smoking 2-3 ppd. Past Drug Use History: None Reported - Past Family History Father Family Medical History: Cancer Additional Family Medical History / Comment(s): Father had scoliosis. Father of lung cancer Mother History Unknown: Yes Family Medical History: CVA/TIA Additional Family Medical History / Comment(s): Mother . Unknown history Medications and Allergies Home Medications Medication Instructions Recorded Confirmed Type Simvastatin [Zocor] 40 mg PO DAILY 07/10/15 04/20/22 History predniSONE 5 mg PO DAILY 10/05/16 04/20/22 History Citalopram Hydrobromide [CeleXA] 20 mg PO DAILY #30 tab 09/18/17 04/20/22 Rx ALPRAZolam [Xanax] 0.5 mg PO TID PRN 03/28/18 04/20/22 History Ferrous Sulfate [Feosol] 325 mg PO DAILY 04/20/22 04/20/22 History Latanoprost/Pf [Latanoprost 0.005% 1 drop BOTH EYES HS 04/20/22 04/20/22 History Eye Drop] Sulfamethox-Tmp 800-160Mg [Bactrim 1 tab PO Q12HR 04/20/22 04/20/22 History DS 800-160 mg] Budesonide [Pulmicort] 0.5 mg BID 04/21/22 04/21/22 History Formoterol Fumarate [Perforomist] 20 mcg INHALATION BID 04/21/22 04/21/22 History Allergies Allergy/AdvReac Type Severity Reaction Status Date / Time No Known Allergies Allergy Verified 04/20/22 20:26 Physical Exam Vitals: Vital Signs Temp Pulse Pulse Resp BP BP Pulse Ox 04/21/22 07:39 18 04/21/22 07:00 98.3 F 89 18 167/81 96 04/21/22 02:01 97.5 F L 81 18 148/63 99 04/20/22 21:53 90 04/20/22 21:39 88 04/20/22 21:25 97.9 F 72 18 181/82 100 04/20/22 15:00 97.6 F 87 18 163/81 96 Intake and Output 04/20/22 04/21/22 04/21/22 22:59 06:59 14:59 Other: Voiding Method Toilet Toilet Diaper # Voids 1 4 Weight 57.606 kg GENERAL: The patient is alert and oriented x3, not in any acute distress. Well developed, well nourished. HEENT: Pupils are round and equally reacting to light. EOMI. No scleral icterus. No conjunctival pallor. Normocephalic, atraumatic. No pharyngeal erythema. No thyromegaly. CARDIOVASCULAR: S1 and S2 present. No murmurs, rubs, or gallops. -PULMONARY: Chest is clear to auscultation, bilateral expiratory wheezing. ABDOMEN: Soft, nontender, nondistended, normoactive bowel sounds. No palpable organomegaly. MUSCULOSKELETAL: No joint swelling or deformity. EXTREMITIES: No cyanosis, clubbing, or pedal edema. NEUROLOGICAL: Gross neurological examination did not reveal any focal deficits. SKIN: No rashes. no petechiae. Results CBC & Chem 7: 04/21/22 06:00 04/21/22 06:00 Labs: Abnormal Lab Results - Last 24 Hours (Table) 04/20/22 04/20/22 04/20/22 Range/Units 15:26 15:26 23:47 RBC 3.52 L (4.30-5.90) m/uL Hgb 10.4 L (13.0-17.5) gm/dL Hct 32.8 L (39.0-53.0) % MCHC (32.0-37.0) g/dL RDW (11.5-14.5) % Eosinophils # (0.04-0.35) X 10*3/uL D-Dimer 1.35 H (<0.60) mg/L FEU Anion Gap (10.00-18.00) mmol/L BUN 31 H (9-20) mg/dL Creatinine 2.03 H (0.66-1.25) mg/dL Est GFR (CKD-EPI)AfAm (60.0-200.0) Est GFR (CKD-EPI)NonAf (60.0-200.0) Calcium (8.7-10.3) mg/dL Urine Protein (Negative) Urine Blood (Negative) Ur Leukocyte Esterase (Negative) Urine RBC (0-5) /hpf Urine WBC (0-5) /hpf Urine WBC Clumps (None) /hpf Urine Bacteria (None) /hpf Urine Mucus (None) /hpf 04/21/22 04/21/22 04/21/22 Range/Units 06:00 06:00 10:25 RBC 3.15 L (4.30-5.90) m/uL Hgb 9.2 L (13.0-17.5) gm/dL Hct 29.2 L (39.0-53.0) % MCHC 31.5 L (32.0-37.0) g/dL RDW 15.5 H (11.5-14.5) % Eosinophils # 0.49 H (0.04-0.35) X 10*3/uL D-Dimer (<0.60) mg/L FEU Anion Gap 9.30 L (10.00-18.00) mmol/L BUN 28.4 H (9-20) mg/dL Creatinine 1.9 H (0.66-1.25) mg/dL Est GFR (CKD-EPI)AfAm 35.3 L (60.0-200.0) Est GFR (CKD-EPI)NonAf 30.4 L (60.0-200.0) Calcium 8.2 L (8.7-10.3) mg/dL Urine Protein Trace H (Negative) Urine Blood Moderate H (Negative) Ur Leukocyte Esterase Large H (Negative) Urine RBC 122 H (0-5) /hpf Urine WBC >182 H (0-5) /hpf Urine WBC Clumps Few H (None) /hpf Urine Bacteria Few H (None) /hpf Urine Mucus Rare H (None) /hpf Assessment and Plan Assessment: Acute COPD exacerbation chest tightness rather than chest pain, academic dean already consulted Acute urinary tract infection acute kidney injury on chronic kidney disease stage III Possible pulmonary nodule History of deep venous thrombosis Hearing difficulty Hypertension Hyperlipidemia History of osteoarthritis Chronic hypoxic respiratory Failure History of bladder cancer status post surgery and vasectomy Plan: This is a pleasant 87 years old male who presents with chesttightness and UTI Continue with aspirin Cardiology consult Add Symbicort, continue with bronchodilator Start prednisone 40 mg on the top of his home dose of 5 mg Start ceftriaxone follow-up urine culture Labs and medication were reviewed.. Continue same treatment. Continue with symptomatic treatment. Resume home medication. Monitor lytes and vitals. DVT and GI prophylaxis. Further recommendations as per clinical course of the patient DVT prophylaxis: Subcutaneous heparin GI Prophylaxis: Pepcid PT/OT: Pending Prognosis is guarded
[2022-04-21] MEDS: IPRATROPIUM-ALBUTEROL 3 ML NEB INHALATION PRN ×3 (11:36→19:36)
--- NOTE | 2022-04-21 11:54 | P.CRDCN ---
History of Present Illness Consult date: 04/21/22 Consult reason: chest pain History of present illness: The patient is an 87-year-old male who awoke in the middle of the night to chest discomfort. He states it started in his neck and radiated down to his stomach. He states this would come and go throughout the night and his encouraged him to come to the emergency room this morning. He states since his admission to the hospital he has not had any chest discomfort or difficulty breathing. DIAGNOSTICS: EKG shows sinus rhythm without acute ST or T-wave abnormalities Chest x-ray shows COPD. No consolidation or pleural effusion. Nodular density at the right base. Lab data: WBC 6.3 hemoglobin 9.2, hematocrit 29.2, platelet 327, sodium 140, potassium 4.4, BUN 20, creatinine 1.9, troponin negative 3, cholesterol 177, LDL 109, triglycerides 70, HDL 53, BNP 1100 PAST MEDICAL HISTORY: COPD, bladder cancer surgery, hypertension, renal disease REVIEW OF SYSTEMS: No fever or chills. No cough or expectoration. No diaphoresis. Patient denies headache, dizziness, blurred vision, double vision. Patient denies any stomach discomfort. No nausea, vomiting. No hematochezia. No hematemesis. Denies any black stools or blood in his stools. Denies dysuria or hematuria. No muscle weakness or numbness. No current chest pain. No shortness of breath at rest. PHYSICAL EXAMINATION: This is a 87-year-old male in no apparent distress at the time of my examination.is supple. There is no jugular venous distention. No carotid bruit is heard. CHEST EXAMINATION: Lungs are diminished to auscultation. No chest wall tenderness is noted on palpation or with deep breathing. Bilateral inspiratory wheezes. HEART EXAMINATION: Heart regular rate and rhythm. S1, S2 heard. No murmurs, gallops or rub. ABDOMEN: Soft, nontender. Bowel sounds are heard. No organomegaly noted. EXTREMITIES: 2+ peripheral pulses with no evidence of peripheral edema and no calf tenderness noted. NEUROLOGIC EXAMINATION: Patient is awake, alert and oriented x3. FINAL ASSESSMENT AND PLAN: Midsternal chest discomfort, not indicative of acute coronary syndrome Hypertension, start low-dose calcium channel brianna Anemia, likely secondary to CKD Urinary tract infection History of COPD History of chronic kidney disease PLAN: Patient to start GI prophylaxis Start low-dose amlodipine for hypertension Check lipid profile Further recommendations based on clinical course I am dictating on behalf of Dr Ambrose Smart's history/physical and assessment/plan. Past Medical History Past Medical History: Cancer, Chest Pain / Angina, COPD, Deep Vein Thrombosis (DVT), Eye Disorder, Hearing Disorder / Deafness, Hyperlipidemia, Hypertension, Osteoarthritis (OA), Pneumonia, Prostate Disorder, Renal Disease Additional Past Medical History / Comment(s): Severe COPD with an FEV1 of 33% of predicted, chronic hypoxic respiratory failure, recurrent hospitalization for COPD exacerbation, stenotrophomonas tracheal bronchitis - HAD PFT 03/04/18. Bladder Cancer w/ prev surgery. RLE DVT. BPH. Chronic Back Pain. VARICOSE VEINS. O2 2L NC. ACUTE RENAL FAILURE 09/2017 R/T DEHYDRATION/DEPRESSION, PER . History of Any Multi-Drug Resistant Organisms: None Reported Past Surgical History: Bladder Surgery, Hernia Repair, Tonsillectomy Additional Past Surgical History / Comment(s): Bladder CA Surgery, Vasectomy. BRONCHIAL WASHING. EXC CATARACTS CARLOS., Past Anesthesia/Blood Transfusion Reactions: No Reported Reaction Past Psychological History: Anxiety, Depression Additional Psychological History / Comment(s): Pt resides with his spouse in a single level home that has [address] drives. He has a nebulizer, 02 uses prn. He has [facility] home care. Smoking Status: Never smoker Past Alcohol Use History: None Reported Additional Past Alcohol Use History / Comment(s): Pt started smoking in 1955 and quit in 1999. At one time smoking 2-3 ppd. Past Drug Use History: None Reported - Past Family History Father Family Medical History: Cancer Additional Family Medical History / Comment(s): Father had scoliosis. Father of lung cancer Mother History Unknown: Yes Family Medical History: CVA/TIA Additional Family Medical History / Comment(s): Mother . Unknown history Medications and Allergies Home Medications Medication Instructions Recorded Confirmed Type Simvastatin [Zocor] 40 mg PO DAILY 07/10/15 04/20/22 History predniSONE 5 mg PO DAILY 10/05/16 04/20/22 History Citalopram Hydrobromide [CeleXA] 20 mg PO DAILY #30 tab 09/18/17 04/20/22 Rx ALPRAZolam [Xanax] 0.5 mg PO TID PRN 03/28/18 04/20/22 History Ferrous Sulfate [Feosol] 325 mg PO DAILY 04/20/22 04/20/22 History Latanoprost/Pf [Latanoprost 0.005% 1 drop BOTH EYES HS 04/20/22 04/20/22 History Eye Drop] Sulfamethox-Tmp 800-160Mg [Bactrim 1 tab PO Q12HR 04/20/22 04/20/22 History DS 800-160 mg] Budesonide [Pulmicort] 0.5 mg BID 04/21/22 04/21/22 History Formoterol Fumarate [Perforomist] 20 mcg INHALATION BID 04/21/22 04/21/22 History Allergies Allergy/AdvReac Type Severity Reaction Status Date / Time No Known Allergies Allergy Verified 04/20/22 20:26 Physical Exam Vitals: Vital Signs Temp Pulse Pulse Resp BP BP Pulse Ox 04/21/22 02:01 97.5 F L 81 18 148/63 99 04/20/22 21:53 90 04/20/22 21:39 88 04/20/22 21:25 97.9 F 72 18 181/82 100 04/20/22 15:00 97.6 F 87 18 163/81 96 Intake and Output 04/20/22 04/21/22 04/21/22 22:59 06:59 14:59 Other: Voiding Method Toilet # Voids 1 4 Weight 57.606 kg Results 04/21/22 06:00 04/21/22 06:00 Cardiac Enzymes 04/20/22 04/20/22 04/20/22 Range/Units 15:26 15:26 22:10 AST 22 (17-59) U/L Troponin I 0.015 0.024 (0.000-0.034) ng/mL 04/21/22 Range/Units 00:45 AST (17-59) U/L Troponin I 0.024 (0.000-0.034) ng/mL Coagulation 04/20/22 Range/Units 15:26 PT 9.8 (9.0-12.0) sec APTT 25.4 (22.0-30.0) sec CBC 04/20/22 Range/Units 15:26 WBC 8.1 (3.8-10.6) k/uL RBC 3.52 L (4.30-5.90) m/uL Hgb 10.4 L (13.0-17.5) gm/dL Hct 32.8 L (39.0-53.0) % Plt Count 333 (150-450) k/uL Comprehensive Metabolic Panel 04/20/22 Range/Units 15:26 Sodium 140 (137-145) mmol/L Potassium 5.0 (3.5-5.1) mmol/L Chloride 104 (98-107) mmol/L Carbon Dioxide 26 (22-30) mmol/L BUN 31 H (9-20) mg/dL Creatinine 2.03 H (0.66-1.25) mg/dL Glucose 82 (74-99) mg/dL Calcium 8.8 (8.4-10.2) mg/dL AST 22 (17-59) U/L ALT 16 (4-49) U/L Alkaline Phosphatase 86 (38-126) U/L Total Protein 7.2 (6.3-8.2) g/dL Albumin 4.1 (3.5-5.0) g/dL Current Medications Generic Name Dose Route Start Last Admin Trade Name Freq PRN Reason Stop Dose Admin Alprazolam 0.5 mg 04/20/22 21:50 Alprazolam 0.5 Mg Tab PO TID PRN Anxiety Amlodipine Besylate 2.5 mg 04/21/22 09:00 Amlodipine 2.5 Mg Tab PO DAILY FLORINA Atorvastatin Calcium 20 mg 04/21/22 09:00 04/21/22 07:39 Atorvastatin 20 Mg Tab PO 20 mg DAILY FLORINA Administration Citalopram Hydrobromide 20 mg 04/21/22 09:00 04/21/22 07:39 Citalopram Hydrobromide 20 Mg Tab PO 20 mg DAILY FLORINA Administration Ferrous Sulfate 325 mg 04/21/22 09:00 04/21/22 07:39 Ferrous Sulfate 325 Mg Tab PO 325 mg DAILY FLORINA Administration Heparin Sodium (Porcine) 5,000 unit 04/21/22 00:00 04/21/22 07:39 Heparin Sodium,Porcine/Pf 5,000 Unit/0.5 Ml Syringe SQ 5,000 unit Q8HR FLORINA Administration Sodium Chloride 1,000 mls @ 75 mls/hr 04/20/22 22:00 04/20/22 22:22 Saline 0.9% IV 04/21/22 10:01 75 mls/hr .[id number] FLORINA Administration Latanoprost 1 drops 04/20/22 22:00 04/20/22 22:21 Latanoprost 0.005% Ophth Drops 2.5 Ml Btl BOTH EYES 1 drops HS FLORINA Administration Nitroglycerin 0.4 mg 04/20/22 19:03 Nitroglycerin Sl Tabs 0.4 Mg Tab SUBLINGUAL Q5M PRN Chest Pain Pantoprazole Sodium 40 mg 04/21/22 08:15 Pantoprazole 40 Mg Tablet PO AC-BID FLORINA Prednisone 5 mg 04/21/22 09:00 04/21/22 07:39 Prednisone 5 Mg Tab PO 5 mg DAILY FLORINA Administration Intake and Output 04/20/22 04/21/22 04/21/22 22:59 06:59 14:59 Other: Voiding Method Toilet # Voids 1 4 Weight 57.606 kg 04/20/22 15:26 04/20/22 15:26
[2022-04-21] MEDS: predniSONE 20 MG TAB PO SCH (14:47)
[2022-04-21] MEDS: SYMBICORT 160-4.5 MCG INHALER INHALATION SCH (19:37)
[2022-04-21] MEDS: LATANOPROST 0.005% OPHTH DROPS 2.5 ML BTL BOTH EYES SCH (21:16)
[2022-04-22] MEDS: SYMBICORT 160-4.5 MCG INHALER INHALATION SCH ×2 (08:06→19:24)
[2022-04-22] MEDS: predniSONE 20 MG TAB PO SCH (08:46)
[2022-04-22] MEDS: FERROUS SULFATE 325 MG TAB PO SCH (08:46)
[2022-04-22] MEDS: PANTOPRAZOLE 40 MG TABLET PO SCH ×2 (08:46→17:36)
[2022-04-22] MEDS: ATORVASTATIN 20 MG TAB PO SCH (08:46)
[2022-04-22] MEDS: predniSONE 5 MG TAB PO SCH (08:46)
[2022-04-22] MEDS: amLODIPine 2.5 MG TAB PO SCH ×2 (08:46→20:41)
[2022-04-22] MEDS: CITALOPRAM HYDROBROMIDE 20 MG TAB PO SCH (08:46)
[2022-04-22] MEDS: HEPARIN SODIUM,PORCINE/PF 5,000 UNIT/0.5 ML SYRINGE SQ SCH ×3 (08:46→20:41)
[2022-04-22] MEDS: SODIUM CHLORIDE 0.9% 1,000 ML IV SCH ×2 (08:52→17:38)
[2022-04-22 10:11] LABS: Basophils % (A) 0 %; Eosinophils % (A) 0 %; HCT 31.5 % (39.0-53.0); HGB 9.8 gm/dL (13.0-17.5); Hypochromasia Moderate; Lymphocytes % (A) 11 %; MCH 29.1 pg (25.0-35.0); MCHC 31.2 g/dL (31.0-37.0); MCV 93.3 fL (80.0-100.0); Mean Platelet Volume 7.9; Monocytes # (A) 0.6 k/uL (0-1.0); Monocytes % (A) 6 %; Neutrophils # (A) 7.3 k/uL (1.3-7.7); Neutrophils % (A) 81 %; Platelet Count 362 k/uL (150-450); RBC 3.37 m/uL (4.30-5.90); RDW 15.2 % (11.5-15.5)
[2022-04-22 10:27] LABS: African American GFR (CKD) 32 (>60 ml/min/1.73 sqM); Anion Gap 10 mmol/L; Blood Urea Nitrogen 37 mg/dL (9-20); Calcium 8.2 mg/dL (8.4-10.2); Carbon Dioxide 22 mmol/L (22-30); Chloride 102 mmol/L (98-107); Glucose 82 mg/dL (74-99); Non-African American GFR(CKD) 28 (>60 ml/min/1.73 sqM); Potassium 4.7 mmol/L (3.5-5.1); Sodium 134 mmol/L (137-145)
--- NOTE | 2022-04-22 12:56 | P.PN ---
Subjective Progress Note Date: 04/22/22 The patient is an 87-year-old male is currently admitted to the hospital with chest pains. He awoke in the middle the night up with midsternal chest pains that radiated down to his stomach. The symptoms had resolved by the time he got to the emergency room. No recurrent symptoms overnight. He states he is breathing well. No dizziness or lightheadedness when ambulating around the room. GENERAL: Well-appearing, well-nourished and in no acute distress. NECK: Supple without JVD or thyromegaly. LUNGS: Breath sounds diminished to auscultation bilaterally. Respiration equal and unlabored. Bilateral inspiratory wheezes HEART: Regular rate and rhythm without murmurs, rubs or gallops. S1 and S2 heard. EXTREMITIES: Normal range of motion, no edema. No clubbing or cyanosis. Peripheral pulses intact and strong. VITALS: Blood pressure 148/86, pulse 69, respiratory rate 18, temp 97.6F, SpO2 99% on 2 L nasal cannula TELEMETRY: Sinus rhythm overnight LABS: WBC 9.0, hemoglobin 9.8, hematocrit 31.5, platelet 62, sodium 134, potassium 4.7, BUN 37, creatinine 2.10 IMPRESSION: Midsternal chest discomfort, not indicative of acute coronary syndrome Hypertension, increase amlodipine to 20 mg twice daily Anemia, likely secondary to chronic kidney disease Acute urinary tract infection History of COPD History of chronic kidney disease PLAN: Check blood pressure manually Increase amlodipine to 2-1/2 mg twice daily No further recommendations from the cardiac standpoint I am dictating on behalf of Dr Ambrose Smart's history/physical and assessment/plan. Objective - Vital Signs Vital signs: Vital Signs Temp 97.6 F 04/22/22 07:00 Pulse 69 04/22/22 07:00 Resp 18 04/22/22 08:46 BP 148/86 04/22/22 08:00 Pulse Ox 99 04/22/22 07:00 FiO2 Intake & Output 04/21/22 04/22/22 04/22/22 18:59 06:59 18:59 Intake Total 240 360 Output Total 225 Balance 240 135 Intake: Oral 240 360 Output: Post Void Residual 225 Other: Voiding Method Toilet Toilet Toilet Diaper # Voids 2 4 - Labs CBC & Chem 7: 04/22/22 09:56 04/22/22 09:56 Labs: Abnormal Lab Results - Last 24 Hours (Table) 04/22/22 04/22/22 Range/Units 09:56 09:56 RBC 3.37 L (4.30-5.90) m/uL Hgb 9.8 L (13.0-17.5) gm/dL Hct 31.5 L (39.0-53.0) % Sodium 134 L (137-145) mmol/L BUN 37 H (9-20) mg/dL Creatinine 2.10 H (0.66-1.25) mg/dL Calcium 8.2 L (8.4-10.2) mg/dL Microbiology - Last 24 Hours (Table) 04/21/22 10:25 Urine Culture - Preliminary Urine,Clean Catch
--- NOTE | 2022-04-22 18:38 | P.PN ---
Subjective This is a pleasant 87 years old male with multiple medical problems including Chest Pain / Angina, COPD, Deep Vein Thrombosis , not on anticoagulation, hearing difficulty, hypertension, hyperlipidemia, osteoarthritis, chronic hypoxic respiratory failure, bladder cancer surgery and vasectomy, anxiety and depression Patient presents because of chest tightness that started 2 days one day ago with more cough and phlegm than usual and dyspnea. Patient denies any chest pain and even when asking specifically he confirms no chest pain. No dizziness. No diarrhea or vomiting, no change in frequency of urination, no headache or weakness or numbness Patient is afebrile and vitals stable Hemoglobin 9.2, creatinine 1.9, compared to 2.0 yesterday Urine analysis showing evidence of infection EKG: Normal sinus rhythm with no significant ST-T changes Chest x-ray: No acute process. COPD changes with no acute process. Nodular density on the right base may reflect the pulse should've however during patient increased risk of development of lung cancer none emergency to the chest is recommended to exclude suspicious underlying pulmonary nodule 04/22/2022 Patient awake and alert and pleasant Within significantly improved and prednisone 40 mg per to 20 mg tomorrow and can be tapered gradually down to his home dose of 5 mg daily. He has evidence of elevated creatinine 2.0. Urine analysis was suspicious for infection and patient is on ceftriaxone however her urine culture is negative. The patient denies dysuria. May consider discontinuing antibiotics and repeat urine analysis. Most likely patient acute kidney injury secondary to obstruct francesca uropathy with seen on bladder scan 2 with postvoid residual volume increased. Swartz catheter inserted, discussed with the staff. Also start the patient on Flomax Objective - Vital Signs Vital signs: Vital Signs Temp 98.3 F 04/22/22 13:43 Pulse 73 04/22/22 13:43 Resp 18 04/22/22 13:43 BP 165/83 04/22/22 13:43 Pulse Ox 99 04/22/22 13:43 FiO2 Intake & Output 04/21/22 04/22/22 04/22/22 18:59 06:59 18:59 Intake Total 240 600 Output Total 1425 Balance 240 -825 Intake: Oral 240 600 Output: Urine 1200 Uretheral (Swartz) 600 Post Void Residual 225 Other: Voiding Method Toilet Toilet Indwelling Catheter Diaper # Voids 2 4 - Exam GENERAL: The patient is alert and oriented x3, not in any acute distress. Well developed, well nourished. HEENT: Pupils are round and equally reacting to light. EOMI. No scleral icterus. No conjunctival pallor. Normocephalic, atraumatic. No pharyngeal erythema. No thyromegaly. CARDIOVASCULAR: S1 and S2 present. No murmurs, rubs, or gallops. -PULMONARY: Chest is clear to auscultation, bilateral expiratory wheezing. ABDOMEN: Soft, nontender, nondistended, normoactive bowel sounds. No palpable organomegaly. MUSCULOSKELETAL: No joint swelling or deformity. EXTREMITIES: No cyanosis, clubbing, or pedal edema. NEUROLOGICAL: Gross neurological examination did not reveal any focal deficits. SKIN: No rashes. no petechiae. - Labs CBC & Chem 7: 04/22/22 09:56 04/22/22 09:56 Labs: Abnormal Lab Results - Last 24 Hours (Table) 04/22/22 04/22/22 Range/Units 09:56 09:56 RBC 3.37 L (4.30-5.90) m/uL Hgb 9.8 L (13.0-17.5) gm/dL Hct 31.5 L (39.0-53.0) % Sodium 134 L (137-145) mmol/L BUN 37 H (9-20) mg/dL Creatinine 2.10 H (0.66-1.25) mg/dL Calcium 8.2 L (8.4-10.2) mg/dL Microbiology - Last 24 Hours (Table) 04/21/22 10:25 Urine Culture - Preliminary Urine,Clean Catch Assessment and Plan Assessment: Urine retention status post Swartz catheter acute kidney injury on chronic kidney disease stage III. Secondary to obstructive uropathy Acute COPD exacerbation, improving significantly. chest tightness rather than chest pain, grease worker already consulted and cleared the patient Most likely patient has asymptomatic bacteriuria or abnormal urine analysis greater than infection with abscess of symptoms and negative urine culture Possible pulmonary nodule , we recommend follow-up as an outpatient History of deep venous thrombosis Hearing difficulty Hypertension Hyperlipidemia History of osteoarthritis Chronic hypoxic respiratory Failure History of bladder cancer status post surgery and vasectomy Plan: This is a pleasant 87 years old male who presents with a KI secondary to urinary retention Discontinue IV fluid Place Swartz catheter start Flomax Cardiology consult, chest pain resolved Add to prednisone to 20 mg on the top of his home dose of 5 mg Discontinue ceftriaxone. Repeat urinalysis Labs and medication were reviewed.. Continue same treatment. Continue with symptomatic treatment. Resume home medication. Monitor lytes and vitals. DVT and GI prophylaxis. Further recommendations as per clinical course of the patient DVT prophylaxis: Subcutaneous heparin GI Prophylaxis: Pepcid PT/OT: Pending Prognosis is guarded
[2022-04-22] MEDS: LATANOPROST 0.005% OPHTH DROPS 2.5 ML BTL BOTH EYES SCH (20:42)
[2022-04-22] MEDS: TAMSULOSIN 0.4 MG CAP.ER.24H PO SCH (20:42)
[2022-04-22 21:51] LABS: Appearance,Urine Cloudy (Clear); Bacteria,Urine Rare /hpf; Bilirubin,Urine Negative (Negative); Blood,Urine Moderate (Negative); Budding Yeast,Urine Moderate /hpf; Color,Urine Light Yellow; Glucose,Urine (UA) Negative (Negative); Ketones,Urine Negative (Negative); Leukocyte Esterase,Urine Large (Negative); Nitrite,Urine Negative (Negative); PH, Urine 6.5 (5.0-8.0); Protein,Urine 1+ (Negative); RBC,Urine 83 /hpf (0-5); Specific Gravity,Urine 1.013 (1.001-1.035); Urobilinogen,Urine <2.0 mg/dL (<2.0); WBC,Urine 140 /hpf (0-5)
[2022-04-23] MEDS: SYMBICORT 160-4.5 MCG INHALER INHALATION SCH ×2 (08:23→19:26)
[2022-04-23] MEDS ORDERED: predniSONE 20 MG TAB PO SCH (09:00)
--- NOTE | 2022-04-23 09:05 | P.PN ---
Subjective Progress Note Date: 04/23/22 Principal diagnosis: Chest pain This is an 87-year-old male who presented to the ER with chest pain. Chest pain has since resolved. Now questioning acute kidney injury secondary to obstructive uropathy along with urinary retention. New Swartz catheter was placed and patient was started on Flomax. Patient denies any current complaints. Objective - Vital Signs Vital signs: Vital Signs Temp 97.9 F 04/23/22 07:00 Pulse 74 04/23/22 07:00 Resp 22 04/23/22 07:00 BP 180/66 04/23/22 07:00 Pulse Ox 100 04/23/22 08:24 FiO2 Intake & Output 04/22/22 04/23/22 04/23/22 18:59 06:59 18:59 Intake Total 600 Output Total 2450 1300 Balance -1850 -1300 Intake: Oral 600 Output: Urine 2225 1300 Uretheral (Swartz) 600 Post Void Residual 225 Other: Voiding Method Indwelling Catheter Indwelling Catheter # Voids 1 - Constitutional General appearance: Present: cooperative, no acute distress - Neck Neck: Present: normal ROM. Absent: rigidity, thyromegaly - Respiratory Respiratory: bilateral: CTA - Cardiovascular Rhythm: regular Heart sounds: normal: S1, S2 - Gastrointestinal General gastrointestinal: Present: normal bowel sounds, soft. Absent: tenderness - Psychiatric Psychiatric: Present: A&O x's 3, appropriate affect, intact judgment & insight - Labs CBC & Chem 7: 04/22/22 09:56 04/22/22 09:56 Labs: Abnormal Lab Results - Last 24 Hours (Table) 04/22/22 04/22/22 04/22/22 Range/Units 09:56 09:56 20:40 RBC 3.37 L (4.30-5.90) m/uL Hgb 9.8 L (13.0-17.5) gm/dL Hct 31.5 L (39.0-53.0) % Sodium 134 L (137-145) mmol/L BUN 37 H (9-20) mg/dL Creatinine 2.10 H (0.66-1.25) mg/dL Calcium 8.2 L (8.4-10.2) mg/dL Urine Protein 1+ H (Negative) Urine Blood Moderate H (Negative) Ur Leukocyte Esterase Large H (Negative) Urine RBC 83 H (0-5) /hpf Urine WBC 140 H (0-5) /hpf Urine WBC Clumps Few H (None) /hpf Urine Bacteria Rare H (None) /hpf Urine Yeast (Budding) Moderate H (None) /hpf Microbiology - Last 24 Hours (Table) 04/21/22 10:25 Urine Culture - Final Urine,Clean Catch Assessment and Plan (1) Urine retention Current Visit: Yes Status: Acute Code(s): R33.9 - RETENTION OF URINE, UNSPECIFIED SNOMED Code(s): 940849396 (2) Acute kidney injury Current Visit: Yes Status: Acute Code(s): N17.9 - ACUTE KIDNEY FAILURE, UNSPECIFIED SNOMED Code(s): 09786360 (3) Chest pain Current Visit: Yes Status: Acute Code(s): R07.9 - CHEST PAIN, UNSPECIFIED SNOMED Code(s): 25185115 (4) Acute exacerbation of chronic obstructive airways disease Current Visit: No Status: Acute Code(s): J44.1 - CHRONIC OBSTRUCTIVE PULMONARY DISEASE W (ACUTE) EXACERBATION SNOMED Code(s): 907403744 Plan: Will consult urology and await their recommendation. The patient was seen and examined by nurse practitioner. Physician and agreement with plan.
[2022-04-23] MEDS: amLODIPine 2.5 MG TAB PO SCH ×2 (09:23→20:29)
[2022-04-23] MEDS: HEPARIN SODIUM,PORCINE/PF 5,000 UNIT/0.5 ML SYRINGE SQ SCH ×3 (09:24→20:30)
[2022-04-23] MEDS: PANTOPRAZOLE 40 MG TABLET PO SCH ×2 (09:24→17:32)
[2022-04-23] MEDS: predniSONE 5 MG TAB PO SCH (09:24)
[2022-04-23] MEDS: ATORVASTATIN 20 MG TAB PO SCH (09:24)
[2022-04-23] MEDS: FERROUS SULFATE 325 MG TAB PO SCH (09:24)
[2022-04-23] MEDS: CITALOPRAM HYDROBROMIDE 20 MG TAB PO SCH (09:24)
[2022-04-23 11:33] LABS: Basophils # (A) 0.01 X 10*3/uL (0.00-0.10); Basophils % (A) 0.1 %; Eosinophils # (A) 0 X 10*3/uL (0.04-0.35); Eosinophils % (A) 0 %; HCT 32.4 % (39.6-50.0); Immature Grans, Automated 0.9 %; Lymphocytes # (A) 0.89 X 10*3/uL (0.90-5.00); Lymphocytes % (A) 8.1 %; MCHC 30.9 g/dL (32.0-37.0); MCV 93.9 fL (80.0-97.0); Mean Platelet Volume 10.3 fL (9.5-12.2); Monocytes # (A) 0.58 X 10*3/uL (0.20-1.00); Monocytes % (A) 5.3 %; NRBC Per 100 WBC 0 /100 WBCS (0.0-0.0); Neutrophils # (A) 9.46 X 10*3/uL (1.80-7.70); Neutrophils % (A) 85.6 %; Platelet Count 408 X 10*3/uL (140-440); RBC 3.45 X 10*6/uL (4.40-5.60); RDW 15.3 % (11.5-14.5); WBC 11.04 X 10*3/uL (4.50-10.00)
[2022-04-23 11:39] LABS: African American GFR (CKD) 38.4 (60.0-200.0); Anion Gap 9.3 mmol/L (10.00-18.00); BUN/Creat Ratio 24.39 Ratio (12.00-20.00); Blood Urea Nitrogen 43.9 mg/dL (9.0-27.0); Calcium 8.8 mg/dL (8.7-10.3); Carbon Dioxide 22.7 mmol/L (20.0-27.5); Non-African American GFR(CKD) 33.1 (60.0-200.0); Potassium 5.4 mmol/L (3.5-5.5)
--- NOTE | 2022-04-23 13:46 | P.GSCN ---
History of Present Illness Consult date: 04/23/22 Reason for Consult: Urinary Retention Requesting physician: Milena Erickson History of present illness: This is a pleasant 87 years old male with a past medical history of angina, COPD, Deep Vein Thrombosis, hearing difficulty, hypertension, hyperlipidemia, osteoarthritis, chronic hypoxic respiratory failure, bladder cancer currently on intravesicle gemcitibine, follow is with dr Su as an outpatient. He presented to the emergency room on 04/20 22 with concerns with episodes of chest discomfort and dyspnea. He described the pain as more of a burning sensation. No chest pain episodes since admission. He also has evidence of CHICHI, elevated creatinine 2.0. Urine analysis was suspicious for infection and patient is on ceftriaxone. However, his urine culture is negative. Antibiotics have been discontinued. Urology is consulted for urinary retention, his PVR was elevated at 600 mL, subsequently Santiago catheter inserted and Flomax started. Review of Systems - Constitutional Denies chills, Denies fever - Cardiovascular Denies chest pain, Denies shortness of breath - Respiratory Denies cough, Denies 7 - Gastrointestinal Reports as per HPI, Denies abdominal pain, Denies nausea, Denies vomiting - Genitourinary Reports urinary retention - Neurological Denies headaches, Denies syncope Past Medical History Past Medical History: Cancer, Chest Pain / Angina, COPD, Deep Vein Thrombosis (DVT), Eye Disorder, Hearing Disorder / Deafness, Hyperlipidemia, Hypertension, Osteoarthritis (OA), Pneumonia, Prostate Disorder, Renal Disease Additional Past Medical History / Comment(s): Severe COPD with an FEV1 of 33% of predicted, chronic hypoxic respiratory failure, recurrent hospitalization for COPD exacerbation, stenotrophomonas tracheal bronchitis - HAD PFT 03/04/18. Bladder Cancer w/ prev surgery. RLE DVT. BPH. Chronic Back Pain. VARICOSE VEINS. O2 2L NC. ACUTE RENAL FAILURE 09/2017 R/T DEHYDRATION/DEPRESSION, PER . History of Any Multi-Drug Resistant Organisms: None Reported Past Surgical History: Bladder Surgery, Hernia Repair, Tonsillectomy Additional Past Surgical History / Comment(s): Bladder CA Surgery, Vasectomy. BRONCHIAL WASHING. EXC CATARACTS CARLOS., Past Anesthesia/Blood Transfusion Reactions: No Reported Reaction Past Psychological History: Anxiety, Depression Additional Psychological History / Comment(s): Pt resides with his spouse in a single level home that has 4 porchs steps..pt drives. He has a nebulizer, 02 uses prn. He has [facility] home care. Smoking Status: Never smoker Past Alcohol Use History: None Reported Additional Past Alcohol Use History / Comment(s): Pt started smoking in 1955 and quit in 1999. At one time smoking 2-3 ppd. Past Drug Use History: None Reported - Past Family History Father Family Medical History: Cancer Additional Family Medical History / Comment(s): Father had scoliosis. Father of lung cancer Mother History Unknown: Yes Family Medical History: CVA/TIA Additional Family Medical History / Comment(s): Mother . Unknown history Medications and Allergies Home Medications Medication Instructions Recorded Confirmed Type Simvastatin [Zocor] 40 mg PO DAILY 07/10/15 04/20/22 History predniSONE 5 mg PO DAILY 10/05/16 04/20/22 History Citalopram Hydrobromide [CeleXA] 20 mg PO DAILY #30 tab 09/18/17 04/20/22 Rx ALPRAZolam [Xanax] 0.5 mg PO TID PRN 03/28/18 04/20/22 History Ferrous Sulfate [Feosol] 325 mg PO DAILY 04/20/22 04/20/22 History Latanoprost/Pf [Latanoprost 0.005% 1 drop BOTH EYES HS 04/20/22 04/20/22 History Eye Drop] Sulfamethox-Tmp 800-160Mg [Bactrim 1 tab PO Q12HR 04/20/22 04/20/22 History DS 800-160 mg] Budesonide [Pulmicort] 0.5 mg BID 04/21/22 04/21/22 History Formoterol Fumarate [Perforomist] 20 mcg INHALATION BID 04/21/22 04/21/22 History Allergies Allergy/AdvReac Type Severity Reaction Status Date / Time No Known Allergies Allergy Verified 04/20/22 20:26 Surgical - Exam Vital Signs Temp Pulse Resp BP Pulse Ox 97.6 F 87 18 163/81 96 04/20/22 15:00 04/20/22 15:00 04/20/22 15:00 04/20/22 15:00 04/20/22 15:00 General: Well developed, well nourished. No acute distress. Chronically ill appearing HEENT: Head is atraumatic, normocephalic. Sclerae are clear. Lungs: Respirations even and nonlabored. Abdomen/GI: Soft. No guarding, rigidity, or abdominal tenderness. : Santiago catheter with clear yellow urine draining Musculoskeletal/ Extremities: No gross atrophy. + generalized weakness Neurologic: Awake, alert and oriented times 3. CN II-XII grossly intact. No focal deficits. Psychiatric: Appropriate mood and affect. Results - Labs 04/23/22 06:42 04/23/22 06:42 Abnormal Lab Results - Last 24 Hours (Table) 04/22/22 04/23/22 04/23/22 Range/Units 20:40 06:42 06:42 WBC 11.04 H (4.50-10.00) X 10*3/uL RBC 3.45 L (4.40-5.60) X 10*6/uL Hgb 10.0 L (13.0-17.0) g/dL Hct 32.4 L (39.6-50.0) % MCHC 30.9 L (32.0-37.0) g/dL RDW 15.3 H (11.5-14.5) % Immature Gran # 0.10 H (0.00-0.04) X 10*3/uL Neutrophils # 9.46 H (1.80-7.70) X 10*3/uL Lymphocytes # 0.89 L (0.90-5.00) X 10*3/uL Eosinophils # 0 L (0.04-0.35) X 10*3/uL Anion Gap 9.30 L (10.00-18.00) mmol/L BUN 43.9 H (9.0-27.0) mg/dL Creatinine 1.8 H (0.6-1.5) mg/dL Est GFR (CKD-EPI)AfAm 38.4 L (60.0-200.0) Est GFR (CKD-EPI)NonAf 33.1 L (60.0-200.0) BUN/Creatinine Ratio 24.39 H (12.00-20.00) Ratio Glucose 117 H (70-110) mg/dL Urine Protein 1+ H (Negative) Urine Blood Moderate H (Negative) Ur Leukocyte Esterase Large H (Negative) Urine RBC 83 H (0-5) /hpf Urine WBC 140 H (0-5) /hpf Urine WBC Clumps Few H (None) /hpf Urine Bacteria Rare H (None) /hpf Urine Yeast (Budding) Moderate H (None) /hpf Microbiology - Last 24 Hours (Table) 04/21/22 10:25 Urine Culture - Final Urine,Clean Catch Diabetes panel 04/23/22 Range/Units 06:42 Sodium 137 (135-145) mmol/L Potassium 5.4 (3.5-5.5) mmol/L Chloride 105 (96-109) mmol/L Carbon Dioxide 22.7 (20.0-27.5) mmol/L BUN 43.9 H (9.0-27.0) mg/dL Creatinine 1.8 H (0.6-1.5) mg/dL Glucose 117 H (70-110) mg/dL Calcium 8.8 (8.7-10.3) mg/dL Calcium panel 04/23/22 Range/Units 06:42 Calcium 8.8 (8.7-10.3) mg/dL Pituitary panel 04/23/22 Range/Units 06:42 Sodium 137 (135-145) mmol/L Potassium 5.4 (3.5-5.5) mmol/L Chloride 105 (96-109) mmol/L Carbon Dioxide 22.7 (20.0-27.5) mmol/L BUN 43.9 H (9.0-27.0) mg/dL Creatinine 1.8 H (0.6-1.5) mg/dL Glucose 117 H (70-110) mg/dL Calcium 8.8 (8.7-10.3) mg/dL Adrenal panel 04/23/22 Range/Units 06:42 Sodium 137 (135-145) mmol/L Potassium 5.4 (3.5-5.5) mmol/L Chloride 105 (96-109) mmol/L Carbon Dioxide 22.7 (20.0-27.5) mmol/L BUN 43.9 H (9.0-27.0) mg/dL Creatinine 1.8 H (0.6-1.5) mg/dL Glucose 117 H (70-110) mg/dL Calcium 8.8 (8.7-10.3) mg/dL - Imaging Chest x-ray: report reviewed Assessment and Plan Plan: Patient known to Dr. Su. He has a history of bladder cancer with intravesical chemotherapy. Recommend to keep santiago catheter in until ready for discharge, then attempt a trial of void. Patient to keep follow up in office on 04/26/22. Continue Flomax. Impression and plan of care have been directed as dictated by the signing physician. Carmen Austin nurse practitioner acting as scribe for signing physician. Carmen Austin [facility] Palliative Care/Urology [place]ink [phone] Email: [email or web address] I personally performed and participated in history, physical Exam and decision making. I agree with the assessment and plan of the REAL ESTATE TRANSACTION COORDINATOR. Time with Patient: Less than 30
[2022-04-23 15:09] VITALS: BMI 17.6
[2022-04-23] MEDS: LATANOPROST 0.005% OPHTH DROPS 2.5 ML BTL BOTH EYES SCH (20:29)
[2022-04-23] MEDS: TAMSULOSIN 0.4 MG CAP.ER.24H PO SCH (20:29)
[2022-04-24] MEDS: IPRATROPIUM-ALBUTEROL 3 ML NEB INHALATION PRN (01:47)
--- NOTE | 2022-04-24 06:46 | P.CONS ---
History of Present Illness - Reason for Consult Consult date: 04/23/22 - History of Present Illness patient is a 87-year-old male with a past medical history significant for bladder cancer currently on intravesical treatment in this patient also with a history of COPD DVT hypertension hyperlipidemia, patient presenting to the ER 3 days ago for evaluation of chest discomfort and dyspnea patient denies having significant chest pain cough or sputum production patient did have a urinary retention overnight a Swartz catheter was placed patient had did not have any fever during this hospital stay he did have a normal white count however slightly up to 11.04 today patient did have elevated BUN/creatinine seen has slightly improved patient did have a positive UA on 04/21/2022 and the patient was treated with Rocephin however the cultures came back negative and Rocephin was discontinued he did have a repeat UA which is positive infectious disease was consulted because of positive UA concerning for UTI and need for antibiotic therapy Past Medical History Past Medical History: Cancer, Chest Pain / Angina, COPD, Deep Vein Thrombosis (DVT), Eye Disorder, Hearing Disorder / Deafness, Hyperlipidemia, Hypertension, Osteoarthritis (OA), Pneumonia, Prostate Disorder, Renal Disease Additional Past Medical History / Comment(s): Severe COPD with an FEV1 of 33% of predicted, chronic hypoxic respiratory failure, recurrent hospitalization for COPD exacerbation, stenotrophomonas tracheal bronchitis - HAD PFT 03/04/18. B ladder Cancer w/ prev surgery. RLE DVT. BPH. Chronic Back Pain. VARICOSE VEINS. O2 2L NC. ACUTE RENAL FAILURE 09/2017 R/T DEHYDRATION/DEPRESSION, PER . History of Any Multi-Drug Resistant Organisms: None Reported Past Surgical History: Bladder Surgery, Hernia Repair, Tonsillectomy Additional Past Surgical History / Comment(s): Bladder CA Surgery, Vasectomy. BRONCHIAL WASHING. EXC CATARACTS CARLOS., Past Anesthesia/Blood Transfusion Reactions: No Reported Reaction Past Psychological History: Anxiety, Depression Additional Psychological History / Comment(s): Pt resides with his spouse in a single level home that has 4 porchs steps..[address] drives. He has a nebulizer, 02 uses prn. He has [facility] home care. Smoking Status: Never smoker Past Alcohol Use History: None Reported Additional Past Alcohol Use History / Comment(s): Pt started smoking in 1955 and quit in 1999. At one time smoking 2-3 ppd. Past Drug Use History: None Reported - Past Family History Father Family Medical History: Cancer Additional Family Medical History / Comment(s): Father had scoliosis. Father of lung cancer Mother History Unknown: Yes Family Medical History: CVA/TIA Additional Family Medical History / Comment(s): Mother . Unknown history Medications and Allergies Home Medications Medication Instructions Recorded Confirmed Type Simvastatin [Zocor] 40 mg PO DAILY 07/10/15 04/20/22 History predniSONE 5 mg PO DAILY 10/05/16 04/20/22 History Citalopram Hydrobromide [CeleXA] 20 mg PO DAILY #30 tab 09/18/17 04/20/22 Rx ALPRAZolam [Xanax] 0.5 mg PO TID PRN 03/28/18 04/20/22 History Ferrous Sulfate [Feosol] 325 mg PO DAILY 04/20/22 04/20/22 History Latanoprost/Pf [Latanoprost 0.005% 1 drop BOTH EYES HS 04/20/22 04/20/22 History Eye Drop] Sulfamethox-Tmp 800-160Mg [Bactrim 1 tab PO Q12HR 04/20/22 04/20/22 History DS 800-160 mg] Budesonide [Pulmicort] 0.5 mg BID 04/21/22 04/21/22 History Formoterol Fumarate [Perforomist] 20 mcg INHALATION BID 04/21/22 04/21/22 History Allergies Allergy/AdvReac Type Severity Reaction Status Date / Time No Known Allergies Allergy Verified 04/20/22 20:26 Physical Exam Vitals: Vital Signs Temp Pulse Resp BP Pulse Ox 04/23/22 08:24 100 04/23/22 07:00 97.9 F 74 22 180/66 98 04/23/22 02:00 98.0 F 89 19 166/80 93 L 04/22/22 20:00 19 04/22/22 19:15 97.5 F L 96 19 167/78 95 04/22/22 13:43 98.3 F 73 18 165/83 99 04/22/22 13:00 18 Intake and Output 04/22/22 04/23/22 04/23/22 22:59 06:59 14:59 Intake Total 360 Output Total 1025 1300 Balance -1025 -1300 360 Intake: Oral 360 Output: Urine 1025 1300 Other: Voiding Method Indwelling Catheter Indwelling Catheter # Voids 1 Results CBC & Chem 7: 04/23/22 06:42 04/23/22 06:42 Labs: Abnormal Lab Results - Last 24 Hours (Table) 04/22/22 Range/Units 20:40 Urine Protein 1+ H (Negative) Urine Blood Moderate H (Negative) Ur Leukocyte Esterase Large H (Negative) Urine RBC 83 H (0-5) /hpf Urine WBC 140 H (0-5) /hpf Urine WBC Clumps Few H (None) /hpf Urine Bacteria Rare H (None) /hpf Urine Yeast (Budding) Moderate H (None) /hpf Microbiology - Last 24 Hours (Table) 04/21/22 10:25 Urine Culture - Final Urine,Clean Catch Assessment and Plan Plan: 1patient with a history of for bladder cancer currently on intravesical treatment per urology did have urinary retention requiring Swartz catheter pl acement did have a positive UA with initial urine culture negative however the patient now do have mild elevated white count and a positive UA and concerning for a urinary tract infection. 2we will restart his Rocephin 2 g daily while waiting for repeat urine culture to finalize. 3gentle IV fluid. We will follow on clinical condition and cultures to further adjust medication if needed Thank you for this consultation will follow this patient along with you Time with Patient: Greater than 30
--- NOTE | 2022-04-24 08:21 | P.PN ---
Subjective Progress Note Date: 04/24/22 Principal diagnosis: The patient's essentially for urinary retention and exacerbation of COPD. UTI was noted. We will check pulse oximetry on room air. No fever or chills. Appreciate urology consult. Objective - Vital Signs Vital signs: Vital Signs Temp 97.7 F 04/24/22 01:39 Pulse 84 04/24/22 01:54 Resp 19 04/24/22 01:39 BP 175/75 04/24/22 01:39 Pulse Ox 97 04/24/22 01:39 FiO2 Intake & Output 04/23/22 04/24/22 04/24/22 18:59 06:59 18:59 Intake Total 800 150 Balance 800 150 Weight 57.606 kg Intake: Oral 800 150 Other: Voiding Method Indwelling Catheter Indwelling Catheter - Constitutional General appearance: Present: average body habitus, cooperative, mild distress - EENT Eyes: Absent: abnormal pupil - Neck Neck: Absent: lymphadenopathy - Respiratory Respiratory: bilateral: rhonchi - Cardiovascular Rhythm: regular Heart sounds: normal: S1, S2 Abnormal Heart Sounds: Absent: S3 Gallop - Gastrointestinal General gastrointestinal: Present: scaphoid. Absent: tenderness - Musculoskeletal Musculoskeletal: Present: gait normal, generalized weakness - Labs CBC & Chem 7: 04/23/22 06:42 04/23/22 06:42 Labs: Abnormal Lab Results - Last 24 Hours (Table) 04/23/22 04/23/22 Range/Units 06:42 06:42 WBC 11.04 H (4.50-10.00) X 10*3/uL RBC 3.45 L (4.40-5.60) X 10*6/uL Hgb 10.0 L (13.0-17.0) g/dL Hct 32.4 L (39.6-50.0) % MCHC 30.9 L (32.0-37.0) g/dL RDW 15.3 H (11.5-14.5) % Immature Gran # 0.10 H (0.00-0.04) X 10*3/uL Neutrophils # 9.46 H (1.80-7.70) X 10*3/uL Lymphocytes # 0.89 L (0.90-5.00) X 10*3/uL Eosinophils # 0 L (0.04-0.35) X 10*3/uL Anion Gap 9.30 L (10.00-18.00) mmol/L BUN 43.9 H (9.0-27.0) mg/dL Creatinine 1.8 H (0.6-1.5) mg/dL Est GFR (CKD-EPI)AfAm 38.4 L (60.0-200.0) Est GFR (CKD-EPI)NonAf 33.1 L (60.0-200.0) BUN/Creatinine Ratio 24.39 H (12.00-20.00) Ratio Glucose 117 H (70-110) mg/dL Microbiology - Last 24 Hours (Table) 04/23/22 17:54 Urine Culture - Preliminary Urine,Catheterized Assessment and Plan (1) Urine retention Current Visit: Yes Status: Acute Code(s): R33.9 - RETENTION OF URINE, UNSPECIFIED SNOMED Code(s): 444689961 (2) Acute exacerbation of chronic obstructive airways disease Current Visit: No Status: Acute Code(s): J44.1 - CHRONIC OBSTRUCTIVE PULMONARY DISEASE W (ACUTE) EXACERBATION SNOMED Code(s): 172352454 (3) Dyspnea Current Visit: No Status: Acute Code(s): R06.00 - DYSPNEA, UNSPECIFIED SNOMED Code(s): 996507893 Plan: Trial for voiding today. New. PARK Swartz. Check CBC in a.m. Somewhat worsening congestion from a COPD perspective today. Continue current regimen of treatment
[2022-04-24] MEDS: HEPARIN SODIUM,PORCINE/PF 5,000 UNIT/0.5 ML SYRINGE SQ SCH ×3 (08:49→23:35)
[2022-04-24] MEDS: amLODIPine 2.5 MG TAB PO SCH ×2 (08:49→20:19)
[2022-04-24] MEDS: FERROUS SULFATE 325 MG TAB PO SCH (08:49)
[2022-04-24] MEDS: ATORVASTATIN 20 MG TAB PO SCH (08:49)
[2022-04-24] MEDS: CITALOPRAM HYDROBROMIDE 20 MG TAB PO SCH (08:50)
[2022-04-24] MEDS: PANTOPRAZOLE 40 MG TABLET PO SCH ×2 (08:50→16:32)
[2022-04-24] MEDS: methylPREDNISolone SOD SUCCI 40 MG/ML 1 ML VIAL IV SCH ×3 (08:55→23:34)
[2022-04-24] MEDS: SYMBICORT 160-4.5 MCG INHALER INHALATION SCH ×2 (09:33→20:44)
[2022-04-24 09:39] LABS: Basophils % (A) 0 %; Eosinophils % (A) 0 %; HCT 32.3 % (39.0-53.0); HGB 10.1 gm/dL (13.0-17.5); Hypochromasia Slight; Lymphocytes # (A) 1.2 k/uL (1.0-4.8); Lymphocytes % (A) 13 %; MCH 29.2 pg (25.0-35.0); MCHC 31.3 g/dL (31.0-37.0); MCV 93.4 fL (80.0-100.0); Mean Platelet Volume 9.6; Monocytes # (A) 0.8 k/uL (0-1.0); Monocytes % (A) 9 %; Neutrophils # (A) 7.6 k/uL (1.3-7.7); Neutrophils % (A) 77 %; Platelet Count 370 k/uL (150-450); RBC 3.46 m/uL (4.30-5.90); RDW 15.2 % (11.5-15.5); WBC 9.9 k/uL (3.8-10.6)
[2022-04-24 11:01] LABS: ALT 17 U/L (10-49); AST 25 U/L (14-35); African American GFR (CKD) 38.4 (60.0-200.0); Albumin 3.5 g/dL (3.8-4.9); Alkaline Phosphatase 65 U/L (41-126); BUN/Creat Ratio 30.56 Ratio (12.00-20.00); Calcium 8.6 mg/dL (8.7-10.3); Carbon Dioxide 24.2 mmol/L (20.0-27.5); Chloride 103 mmol/L (96-109); Globulin 2.7 g/dL (1.6-3.3); Glucose 98 mg/dL (70-110); Non-African American GFR(CKD) 33.1 (60.0-200.0); Potassium 4.9 mmol/L (3.5-5.5); Sodium 138 mmol/L (135-145); Total Bilirubin <0.15 mg/dL (0.30-1.20); Total Protein 6.2 g/dL (6.2-8.2)
[2022-04-24] MEDS: TAMSULOSIN 0.4 MG CAP.ER.24H PO SCH (20:19)
[2022-04-24] MEDS: LATANOPROST 0.005% OPHTH DROPS 2.5 ML BTL BOTH EYES SCH (20:20)
[2022-04-25 03:47] VITALS: RESP 16
[2022-04-25 06:23] VITALS: BP 153/72; PULSE 71; TEMP 97.5
[2022-04-25] MEDS: SYMBICORT 160-4.5 MCG INHALER INHALATION SCH (06:57)
[2022-04-25] MEDS: PANTOPRAZOLE 40 MG TABLET PO SCH (08:17)
[2022-04-25] MEDS: HEPARIN SODIUM,PORCINE/PF 5,000 UNIT/0.5 ML SYRINGE SQ SCH (08:17)
[2022-04-25] MEDS: amLODIPine 2.5 MG TAB PO SCH (08:18)
[2022-04-25] MEDS: methylPREDNISolone SOD SUCCI 40 MG/ML 1 ML VIAL IV SCH (08:18)
[2022-04-25] MEDS: ATORVASTATIN 20 MG TAB PO SCH (08:18)
[2022-04-25] MEDS: CITALOPRAM HYDROBROMIDE 20 MG TAB PO SCH (08:18)
[2022-04-25] MEDS: FERROUS SULFATE 325 MG TAB PO SCH (08:19)
--- NOTE | 2022-04-25 08:37 | P.DS ---
Providers Date of admission: 04/23/22 13:56 Attending physician: Lobo Elizabeth Consults: 04/20/22 19:03 Consult Physician Urgent Consulting Provider: Gael Freitas Consult Reason/Comments: cp Do you want consulting provider notified?: Yes 04/23/22 05:57 Consult Physician Routine Consulting Provider: Thalia Mata Consult Reason/Comments: possible UTI, culture negative but repeat UA is showing yeast Do you want consulting provider notified?: Yes, Notify in am 04/23/22 08:24 Consult Physician Routine Consulting Provider: Kirill Su Consult Reason/Comments: urinary retention Do you want consulting provider notified?: Yes Primary care physician: Lobo Elizabeth - Discharge Diagnosis(es) (1) Urine retention Current Visit: Yes Status: Acute (2) Acute exacerbation of chronic obstructive airways disease Current Visit: No Status: Acute (3) Dyspnea Current Visit: No Status: Acute Hospital Course: This is a discharge summary an 87-year-old white male essentially admitted for exacerbation of COPD. The patient was placed on empiric therapy but developed urinary retention. The patient had Swartz catheter placed and then urology was consulted trial of removal was successful. His breathing was stabilized and he is placed on prednisone taper to follow-up with me in about one week. Patient Condition at Discharge: Stable Plan - Discharge Summary New Discharge Prescriptions: New predniSONE [Deltasone] 0 mg PO DIRECTED #18 tab Ipratropium-Albuterol Nebulize [Duoneb 0.5 mg-3 mg/3 ml Soln] 3 ml INHALATION Q6HR PRN #12 each PRN Reason: WHEEZING, sob Pantoprazole [Protonix] 40 mg PO AC-BID #30 tab Tamsulosin [Flomax] 0.4 mg PO HS #30 cap amLODIPine [Norvasc] 2.5 mg PO BID #60 tab Continue Simvastatin [Zocor] 40 mg PO DAILY Citalopram Hydrobromide [CeleXA] 20 mg PO DAILY #30 tab ALPRAZolam [Xanax] 0.5 mg PO TID PRN PRN Reason: Anxiety Budesonide [Pulmicort] 0.5 mg BID Formoterol Fumarate [Perforomist] 20 mcg INHALATION BID Sulfamethox-Tmp 800-160Mg [Bactrim DS 800-160 mg] 1 tab PO Q12HR #10 tab Latanoprost/Pf [Latanoprost 0.005% Eye Drop] 1 drop BOTH EYES HS Ferrous Sulfate [Iron (65 MG Elemental)] 325 mg PO DAILY predniSONE 5 mg PO DAILY #0 Discharge Medication List Simvastatin [Zocor] 40 mg PO DAILY 07/10/15 [History] Citalopram Hydrobromide [CeleXA] 20 mg PO DAILY #30 tab 09/18/17 [Rx] ALPRAZolam [Xanax] 0.5 mg PO TID PRN 03/28/18 [History] Ferrous Sulfate [Iron (65 MG Elemental)] 325 mg PO DAILY 04/20/22 [History] Latanoprost/Pf [Latanoprost 0.005% Eye Drop] 1 drop BOTH EYES HS 04/20/22 [History] Budesonide [Pulmicort] 0.5 mg BID 04/21/22 [History] Formoterol Fumarate [Perforomist] 20 mcg INHALATION BID 04/21/22 [History] Ipratropium-Albuterol Nebulize [Duoneb 0.5 mg-3 mg/3 ml Soln] 3 ml INHALATION Q6HR PRN #12 each 04/25/22 [Rx] Pantoprazole [Protonix] 40 mg PO AC-BID #30 tab 04/25/22 [Rx] Sulfamethox-Tmp 800-160Mg [Bactrim DS 800-160 mg] 1 tab PO Q12HR #10 tab 04/25/22 [Rx] Tamsulosin [Flomax] 0.4 mg PO HS #30 cap 04/25/22 [Rx] amLODIPine [Norvasc] 2.5 mg PO BID #60 tab 04/25/22 [Rx] predniSONE 5 mg PO DAILY #0 04/25/22 [Rx] predniSONE [Deltasone] 0 mg PO DIRECTED #18 tab 04/25/22 [Rx] Follow up Appointment(s)/Referral(s): Ambrose Smart MD [STAFF PHYSICIAN] - 3 Weeks Lobo Elizabeth MD [Primary Care Provider] - 1-2 days
[2022-04-25 08:56] LABS: HCT 30.6 % (39.6-50.0); HGB 9.6 g/dL (13.0-17.0); MCH 28.9 pg (27.0-32.0); MCHC 31.4 g/dL (32.0-37.0); MCV 92.2 fL (80.0-97.0); Mean Platelet Volume 10.1 fL (9.5-12.2); NRBC Per 100 WBC 0 /100 WBCS (0.0-0.0); Platelet Count 403 X 10*3/uL (140-440); RBC 3.32 X 10*6/uL (4.40-5.60); RDW 15.4 % (11.5-14.5); WBC 10.83 X 10*3/uL (4.50-10.00)
[2022-04-25 09:14] LABS: ALT 24 U/L (10-49); AST 28 U/L (14-35); African American GFR (CKD) 35.9 (60.0-200.0); Albumin 3.6 g/dL (3.8-4.9); Albumin/Globulin Ratio 1.33 (1.60-3.17); Alkaline Phosphatase 65 U/L (41-126); BUN/Creat Ratio 31.32 Ratio (12.00-20.00); Blood Urea Nitrogen 59.5 mg/dL (9.0-27.0); Carbon Dioxide 26.6 mmol/L (20.0-27.5); Chloride 99 mmol/L (96-109); Globulin 2.7 g/dL (1.6-3.3); Glucose 109 mg/dL (70-110); Sodium 136 mmol/L (135-145); Total Bilirubin <0.15 mg/dL (0.30-1.20); Total Protein 6.3 g/dL (6.2-8.2)
== END 2022-04-25 11:26 | disposition home or self-care (01) | DRG 191 ==
LOC: EC 14:40 → 6NMEDSUR 19:03 → OBSVTOIN 04-23 13:56 → 6NMEDSUR 04-25 04:25
PROVIDERS: ADMIT Family Medicine; ATTEND Family Medicine
DX: J44.1 Chronic obstructive pulmonary disease with (acute) exacerbation (principal); J96.11 Chronic respiratory failure with hypoxia; N17.9 Acute kidney failure, unspecified; N13.8 Other obstructive and reflux uropathy; N39.0 Urinary tract infection, site not specified; N18.30 Chronic kidney disease, stage 3 unspecified; I12.9 Hypertensive chronic kidney disease with stage 1 through stage 4 chronic kidney disease, or unspecified chronic kidney disease; D63.1 Anemia in chronic kidney disease; Z99.81 Dependence on supplemental oxygen; E78.5 Hyperlipidemia, unspecified; H91.90 Unspecified hearing loss, unspecified ear; M19.90 Unspecified osteoarthritis, unspecified site; N40.1 Benign prostatic hyperplasia with lower urinary tract symptoms; R53.1 Weakness; G89.29 Other chronic pain; M54.9 Dorsalgia, unspecified; Z86.718 Personal history of other venous thrombosis and embolism; Z28.310 Unvaccinated for COVID-19; Z87.891 Personal history of nicotine dependence; Z85.51 Personal history of malignant neoplasm of bladder; Z79.899 Other long term (current) drug therapy; Z92.21 Personal history of antineoplastic chemotherapy
CPT/HCPCS: 36415; 71046; 80048; 80053; 80061; 81001; 83605; 83735; 83880; 84145; 84484; 85025; 85027; 85379; 85610; 85730; 86140; 87086; 93005; 94640; 94760; 99285

== ENCOUNTER 2023-01-23 11:09 | Inpatient (IN) | payer MEDICARE ==
[2023-01-23] MEDS ORDERED: methylPREDNISolone SOD SUCCI 125 MG/2 ML VIAL IV STA (11:26)
[2023-01-23] MEDS ORDERED: ALBUTEROL NEBULIZED 2.5 MG/3 ML INHALATION STA (11:26)
[2023-01-23] MEDS ORDERED: IPRATROPIUM 0.5 MG/2.5 ML NEBU INHALATION STA (11:26)
--- NOTE | 2023-01-23 12:21 | XR ---
EXAMINATION TYPE: XR chest 1V portable DATE OF EXAM: 01/23/2023 Comparison: 04/20/2022 Clinical History: 87-year-old male shortness of breath, bolivar Findings: Heart normal size. Aorta and coronary vasculature within normal limits. Hyperinflation. No consolidat ion or pleural effusion. Impression: COPD. No acute process seen.
--- NOTE | 2023-01-23 12:26 | ED ---
General Adult HPI - General Chief complaint: Shortness of Breath Stated complaint: PAPO, Near syncope Time Seen by Provider: 01/23/23 11:12 Source: patient, EMS, RN notes reviewed, old records reviewed Mode of arrival: EMS Limitations: no limitations - History of Present Illness Initial comments: 87-year-old male history of COPD presents in extremis. Patient has had progressive dyspnea over the past several weeks with productive cough. Upon arrival the patient is in respiratory distress. He had been transported by paramedics, found to be hypertensive and tachycardic. He had elevated respiratory rate around 30 with wheezing bilaterally. He was given DuoNeb by paramedics during transport without significant improvement. Patient denies fever. Denies central chest pain. - Related Data Home Medications Medication Instructions Recorded Confirmed Simvastatin [Zocor] 40 mg PO DAILY 07/10/15 04/20/22 ALPRAZolam [Xanax] 0.5 mg PO TID PRN 03/28/18 04/20/22 Ferrous Sulfate [Iron (65 MG 325 mg PO DAILY 04/20/22 04/20/22 Elemental)] Latanoprost/Pf [Latanoprost 0.005% 1 drop BOTH EYES HS 04/20/22 04/20/22 Eye Drop] Budesonide [Pulmicort] 0.5 mg BID 04/21/22 04/21/22 Formoterol Fumarate [Perforomist] 20 mcg INHALATION BID 04/21/22 04/21/22 Previous Rx's Medication Instructions Recorded Citalopram Hydrobromide [CeleXA] 20 mg PO DAILY #30 tab 09/18/17 Ipratropium-Albuterol Nebulize 3 ml INHALATION Q6HR PRN #12 each 04/25/22 [Duoneb 0.5 mg-3 mg/3 ml Soln] Pantoprazole [Protonix] 40 mg PO AC-BID #30 tab 04/25/22 Sulfamethox-Tmp 800-160Mg [Bactrim 1 tab PO Q12HR #10 tab 04/25/22 DS 800-160 mg] Tamsulosin [Flomax] 0.4 mg PO HS #30 cap 04/25/22 amLODIPine [Norvasc] 2.5 mg PO BID #60 tab 04/25/22 predniSONE 5 mg PO DAILY #0 04/25/22 predniSONE [Deltasone] 0 mg PO DIRECTED #18 tab 04/25/22 Allergies Allergy/AdvReac Type Severity Reaction Status Date / Time No Known Allergies Allergy Verified 04/20/22 20:26 Review of Systems ROS Statement: Those systems with pertinent positive or pertinent negative responses have been documented in the HPI. ROS Other: All systems not noted in ROS Statement are negative. Past Medical History Past Medical History: Cancer, Chest Pain / Angina, COPD, Deep Vein Thrombosis (DVT), Eye Disorder, Hearing Disorder / Deafness, Hyperlipidemia, Hypertension, Osteoarthritis (OA), Pneumonia, Prostate Disorder, Renal Disease Additional Past Medical History / Comment(s): Severe COPD with an FEV1 of 33% of predicted, chronic hypoxic respiratory failure, recurrent hospitalization for COPD exacerbation, stenotrophomonas tracheal bronchitis - HAD PFT 03/04/18. Bladder Cancer w/ prev surgery. RLE DVT. BPH. Chronic Back Pain. VARICOSE VEINS. O2 2L NC. ACUTE RENAL FAILURE 09/2017 R/T DEHYDRATION/DEPRESSION, PER . History of Any Multi-Drug Resistant Organisms: None Reported Past Surgical History: Bladder Surgery, Hernia Repair, Tonsillectomy Additional Past Surgical History / Comment(s): Bladder CA Surgery, Vasectomy. BRONCHIAL WASHING. EXC CATARACTS CARLOS., Past Anesthesia/Blood Transfusion Reactions: No Reported Reaction Past Psychological History: Anxiety, Depression Smoking Status: Never smoker Past Alcohol Use History: None Reported Past Drug Use History: None Reported - Past Family History Father Family Medical History: Cancer Additional Family Medical History / Comment(s): Father had scoliosis. Father of lung cancer Mother History Unknown: Yes Family Medical History: CVA/TIA Additional Family Medical History / Comment(s): Mother . Unknown history General Exam General appearance: alert, in distress Head exam: Present: atraumatic, normocephalic Eye exam: Present: normal appearance, PERRL ENT exam: Present: normal exam Neck exam: Present: normal inspection. Absent: tenderness, meningismus Respiratory exam: Present: respiratory distress, wheezes, accessory muscle use, decreased breath sounds Cardiovascular Exam: Present: regular rate, normal rhythm GI/Abdominal exam: Present: soft. Absent: distended, tenderness, guarding Extremities exam: Present: normal inspection, normal capillary refill. Absent: calf tenderness Neurological exam: Present: alert, oriented X3, CN II-XII intact. Absent: motor sensory deficit Psychiatric exam: Present: normal affect, normal mood Skin exam: Present: warm, dry, intact Course Vital Signs 01/23/23 01/23/23 01/23/23 11:13 11:21 11:43 Temperature 98.7 F Pulse Rate 93 Respiratory 22 22 Rate Blood Pressure 194/94 O2 Sat by Pulse 100 Oximetry Fraction of 40 Inspired Oxygen (FIO2) 01/23/23 01/23/23 01/23/23 11:45 11:55 12:10 Temperature Pulse Rate 80 88 92 Respiratory Rate Blood Pressure O2 Sat by Pulse Oximetry Fraction of Inspired Oxygen (FIO2) Medical Decision Making - Medical Decision Making Was pt. sent in by a medical professional or institution (, PA, [facility], urgent care, hospital, or [facility]...) When possible be specific @ -No Did you speak to anyone other than the patient for history (EMS, parent, family, police, friend...)? What history was obtained from this source @ -Paramedics, and patient's family members were at bedside Did you review nursing and triage notes (agree or disagree)? Why? @ -I reviewed and agree with nursing and triage notes Were old charts reviewed (outside hosp., previous admission, EMS record, old EKG, old radiological studies, urgent care reports/EKG's, [facility] records)? Report findings @ -No old charts were reviewed Differential Diagnosis (chest pain, altered mental status, abdominal pain women, abdominal pain men, vaginal bleeding, weakness, fever, dyspnea, syncope, headache, dizziness, GI bleed, back pain, seizure, CVA, palpatations, mental health, musculoskeletal)? @ -Differential Dyspnea: Coronary syndrome, arrhythmia, tamponade, asthma, COPD, pulmonary embolism, pneumonia, pneumothorax, pulmonary effusion, anaphylaxis, diabetic ketoacidosis, flailed chest, pulmonary contusion, diaphragmatic rupture, anemia, neuromuscular, this is not meant to be an all-inclusive list. EKG interpreted by me (3pts min.). @EKG: Sinus rhythm rate of 97 W[place] interval 172, QRS duration 98, QTC 392, tremor artifact limiting assessment, no ST segment elevation. X-rays interpreted by me (1pt min.). @ Hyperinflation, no acute findings CT interpreted by me (1pt min.). @ -None done U/S interpreted by me (1pt. min.). @ -None done What testing was considered but not performed or refused? (CT, X-rays, U/S, labs)? Why? @ -None What meds were considered but not given or refused? Why? @ -None Did you discuss the management of the patient with other professionals (professionals i.e. , PA, [facility], lab, RT, psych nurse, social media assistant, archives specialist, teacher, environmental conservation officer, disease case manager rn)? Give summary @ -[Dr. Elizabeth Was smoking cessation discussed for >3mins.? @ -No Was critical care preformed (if so, how long)? @ -[yes 35 min Were there social determinants of health that impacted care today? How? (Homelessness, low income, unemployed, alcoholism, drug addiction, trans portation, low edu. Level, literacy, decrease access to med. care, usp, rehab)? @ -No Was there de-escalation of care discussed even if they declined (Discuss DNR or withdrawal of care, Hospice)? DNR status @ -No What co-morbidities impacted this encounter? (DM, HTN, Smoking, COPD, CAD, Cancer, CVA, ARF, Chemo, Hep., AIDS, mental health diagnosis, sleep apnea, morbid obesity)? @ -[COPD Was patient admitted / discharged? Hospital course, mention meds given and route, prescriptions, significant lab abnormalities, going to OR and other pertinent info. @ 87 yo male with severe resp distress. Patient has wheezing throughout bilateral lung wood. Patient is in moderate to severe respiratory distress. Chest x-ray shows hyperinflation without focal pneumonia or acute findings. Patient given albuterol, Atrovent, steroids in the emergency department. He has chronic stable lab abnormalities. He will be admitted for COPD exacerbation. Undiagnosed new problem with uncertain prognosis? @ -No Drug Therapy requiring intensive monitoring for toxicity (Heparin, Nitro, Insulin, Cardizem)? @ -No Were any procedures done? @ -No Diagnosis/symptom? @ -COPD exacerbation Acute, or Chronic, or Acute on Chronic? @ -[Acute on chronic Uncomplicated (without systemic symptoms) or Complicated (systemic symptoms)? @ -default Side effects of treatment? @ -No Exacerbation, Progression, or Severe Exacerbation? @ -No Poses a threat to life or bodily function? How? (Chest pain, [place], [place], pneumonia, PE, COPD, DKA, ARF, appy, cholecystitis, CVA, Diverticulitis, Homicidal, Suicidal, threat to staff... and all critical care pts) @ -[yes, hypoxia resp failure - Lab Data Result diagrams: 01/23/23 12:02 01/23/23 12:02 Lab Results 01/23/23 01/23/23 01/23/23 Range/Units 12:02 12:02 12:02 WBC 7.3 (3.8-10.6) k/uL RBC 3.56 L (4.30-5.90) m/uL Hgb 9.2 L (13.0-17.5) gm/dL Hct 32.6 L (39.0-53.0) % MCV 91.5 (80.0-100.0) fL MCH 25.9 (25.0-35.0) pg MCHC 28.3 L (31.0-37.0) g/dL RDW 16.4 H (11.5-15.5) % Plt Count 383 (150-450) k/uL MPV 7.5 Neutrophils % 80 % Lymphocytes % 12 % Monocytes % 5 % Eosinophils % 1 % Basophils % 0 % Neutrophils # 5.9 (1.3-7.7) k/uL Lymphocytes # 0.9 L (1.0-4.8) k/uL Monocytes # 0.4 (0-1.0) k/uL Eosinophils # 0.1 (0-0.7) k/uL Basophils # 0.0 (0-0.2) k/uL Hypochromasia Slight Anisocytosis Slight PT 9.6 (9.0-12.0) sec INR 0.9 (<1.2) APTT 21.7 L (22.0-30.0) sec Sodium 136 L (137-145) mmol/L Potassium 5.4 H (3.5-5.1) mmol/L Chloride 103 (98-107) mmol/L Carbon Dioxide 24 (22-30) mmol/L Anion Gap 9 mmol/L BUN 50 H (9-20) mg/dL Creatinine 1.46 H (0.66-1.25) mg/dL Est GFR (CKD-EPI)AfAm 49 (>60 ml/min/1.73 sqM) Est GFR (CKD-EPI)NonAf 43 (>60 ml/min/1.73 sqM) Glucose 104 H (74-99) mg/dL Plasma Lactic Acid Ye (0.7-2.0) mmol/L Calcium 8.4 (8.4-10.2) mg/dL Magnesium 2.3 (1.6-2.3) mg/dL Total Bilirubin 0.5 (0.2-1.3) mg/dL AST 41 (17-59) U/L ALT 25 (4-49) U/L Alkaline Phosphatase 66 (38-126) U/L Troponin I (0.000-0.034) ng/mL NT-Pro-B Natriuret Pep pg/mL Total Protein 7.6 (6.3-8.2) g/dL Albumin 3.8 (3.5-5.0) g/dL 01/23/23 01/23/23 01/23/23 Range/Units 12:02 12:02 12:02 WBC (3.8-10.6) k/uL RBC (4.30-5.90) m/uL Hgb (13.0-17.5) gm/dL Hct (39.0-53.0) % MCV (80.0-100.0) fL MCH (25.0-35.0) pg MCHC (31.0-37.0) g/dL RDW (11.5-15.5) % Plt Count (150-450) k/uL MPV Neutrophils % % Lymphocytes % % Monocytes % % Eosinophils % % Basophils % % Neutrophils # (1.3-7.7) k/uL Lymphocytes # (1.0-4.8) k/uL Monocytes # (0-1.0) k/uL Eosinophils # (0-0.7) k/uL Basophils # (0-0.2) k/uL Hypochromasia Anisocytosis PT (9.0-12.0) sec INR (<1.2) APTT (22.0-30.0) sec Sodium (137-145) mmol/L Potassium (3.5-5.1) mmol/L Chloride (98-107) mmol/L Carbon Dioxide (22-30) mmol/L Anion Gap mmol/L BUN (9-20) mg/dL Creatinine (0.66-1.25) mg/dL Est GFR (CKD-EPI)AfAm (>60 ml/min/1.73 sqM) Est GFR (CKD-EPI)NonAf (>60 ml/min/1.73 sqM) Glucose (74-99) mg/dL Plasma Lactic Acid Ye 2.1 H* (0.7-2.0) mmol/L Calcium (8.4-10.2) mg/dL Magnesium (1.6-2.3) mg/dL Total Bilirubin (0.2-1.3) mg/dL AST (17-59) U/L ALT (4-49) U/L Alkaline Phosphatase (38-126) U/L Troponin I 0.025 (0.000-0.034) ng/mL NT-Pro-B Natriuret Pep 1150 pg/mL Total Protein (6.3-8.2) g/dL Albumin (3.5-5.0) g/dL Critical Care Time Critical Care Time: Yes Total Critical Care Time: 35 Disposition Clinical Impression: Acute exacerbation of chronic obstructive airways disease Disposition: ADMITTED IP TO THIS HOSP Condition: Stable Is patient prescribed a controlled substance at d/c from ED?: No Referrals: Lobo Elizabeth MD [Primary Care Provider] - 1-2 days Time of Disposition: 13:46
[2023-01-23 12:38] LABS: INR 0.9 (<1.2); Prothrombin Time 9.6 sec (9.0-12.0)
[2023-01-23 12:40] LABS: Partial Thromboplastin Time 21.7 sec (22.0-30.0)
[2023-01-23 12:41] LABS: Anisocytosis Slight; Basophils % (A) 0 %; Eosinophils # (A) 0.1 k/uL (0-0.7); Eosinophils % (A) 1 %; HCT 32.6 % (39.0-53.0); HGB 9.2 gm/dL (13.0-17.5); Hypochromasia Slight; Lymphocytes # (A) 0.9 k/uL (1.0-4.8); Lymphocytes % (A) 12 %; MCH 25.9 pg (25.0-35.0); MCHC 28.3 g/dL (31.0-37.0); MCV 91.5 fL (80.0-100.0); Mean Platelet Volume 7.5; Monocytes # (A) 0.4 k/uL (0-1.0); Monocytes % (A) 5 %; Neutrophils # (A) 5.9 k/uL (1.3-7.7); Neutrophils % (A) 80 %; Platelet Count 383 k/uL (150-450); RBC 3.56 m/uL (4.30-5.90); RDW 16.4 % (11.5-15.5); WBC 7.3 k/uL (3.8-10.6)
[2023-01-23 13:26] LABS: ALT 25 U/L (4-49); African American GFR (CKD) 49 (>60 ml/min/1.73 sqM); Albumin 3.8 g/dL (3.5-5.0); Anion Gap 9 mmol/L; Blood Urea Nitrogen 50 mg/dL (9-20); Calcium 8.4 mg/dL (8.4-10.2); Carbon Dioxide 24 mmol/L (22-30); Chloride 103 mmol/L (98-107); Glucose 104 mg/dL (74-99); Non-African American GFR(CKD) 43 (>60 ml/min/1.73 sqM); Sodium 136 mmol/L (137-145); Total Bilirubin 0.5 mg/dL (0.2-1.3); Total Protein 7.6 g/dL (6.3-8.2)
[2023-01-23 13:28] LABS: AST 41 U/L (17-59); Alkaline Phosphatase 66 U/L (38-126); Magnesium 2.3 mg/dL (1.6-2.3); Potassium 5.4 mmol/L (3.5-5.1)
[2023-01-23] MEDS ORDERED: IPRATROPIUM-ALBUTEROL 3 ML NEB INHALATION PRN (13:44)
[2023-01-23] MEDS ORDERED: NALOXONE 0.4 MG/ML 1 ML VIAL IVP PRN (13:44)
[2023-01-23] MEDS ORDERED: AZITHROMYCIN 500 MG in SODIUM CHLORIDE 0.9% 250 ML IVPB STA (13:46)
[2023-01-23] MEDS: IPRATROPIUM-ALBUTEROL 3 ML NEB INHALATION SCH ×2 (15:39→20:44)
[2023-01-23] MEDS: methylPREDNISolone SOD SUCCI 125 MG/2 ML VIAL IV SCH ×2 (18:30→23:46)
[2023-01-23] MEDS ORDERED: FORMOTEROL FUMARATE 20 MCG/2 ML NEBU INHALATION SCH (20:00)
[2023-01-23] MEDS ORDERED: BUDESONIDE 0.5 MG/2 ML NEBU INHALATION SCH (20:00)
[2023-01-23] MEDS: BUDESONIDE 0.5 MG/2 ML NEBU INHALATION SCH (20:44)
[2023-01-23] MEDS: FORMOTEROL FUMARATE 20 MCG/2 ML NEBU INHALATION SCH (20:44)
[2023-01-23] MEDS: TAMSULOSIN 0.4 MG CAP.ER.24H PO SCH (21:15)
[2023-01-23] MEDS: LATANOPROST 0.005% OPHTH DROPS 2.5 ML BTL BOTH EYES SCH (21:15)
[2023-01-23] MEDS: amLODIPine 2.5 MG TAB PO SCH ×2 (21:15→21:23)
[2023-01-23] MEDS: ALPRAZolam 0.5 MG TAB PO PRN (21:15)
[2023-01-24] MEDS: methylPREDNISolone SOD SUCCI 125 MG/2 ML VIAL IV SCH ×4 (05:40→23:48)
--- NOTE | 2023-01-24 08:13 | P.CNPUL ---
History of Present Illness Consult date: 01/24/23 Requesting physician: Rey Scott Reason for consult: COPD Chief complaint: Shortness of breath History of present illness: I am seeing this patient in new consultation today 01/24/2023 for suspected acute COPD exacerbation. Patient is an 87-year-old white male with past medical history significant for severe oxygen dependent COPD, pulmonary hypertension, hypertension, hyperlipidemia, DVT, bladder cancer. Patient does follow up in the office with Dr. Chavarria, for management of his severe COPD with FEV1 41% of predicted. Patient does utilize 2 L/m nasal cannula 28/01. Patient's primary care provider is Dr. Elizabeth. Patient is fairly hard of hearing, making it difficult to communicate. Apparently, the patient has had some progressive shortness of breath and cough for the last several weeks. He presented to the emergency room via EMS yesterday afternoon. He was found to be in some acute respiratory distress. He was also hypertensive and tachycardic. Chest x-ray on arrival showed no acute cardiopulmonary process. Patient is currently sitting up in bed, on 2 L/m nasal cannula, in no acute distress. He is currently on a combination of DuoNeb's, desonide, formoterol, and IV Solu-Medrol. He seems fairly comfortable, and is already showing improvement in his respiratory status. Denies any fever, chills, myalgias, cough, hemoptysis. Denies any chest pain, heart palpitations, lower extremity edema, orthopnea. CBC on arrival showed a WBC count of 7.3, hemoglobin 9.2, hematocrit 32.6, platelets 383. BMP on arrival shows sodium 136, potassium 5.4, chloride 103, serum bicarb 24, BUN 50, creatinine 1.46, glucose 104. NT proBNP was mildly elevated at 1150, but not significant for age. Troponin was 0.025. Overall, the patient's condition seems to be improving nicely. Review of Systems REVIEW OF SYSTEMS: CONSTITUTIONAL: Denies any recent significant weight loss or weight gain. EYES: Denies change in vision. EARS, NOSE, MOUTH, THROAT: Denies headaches, denies sore throat. CARDIOVASCULAR: See HPI RESPIRATORY: See HPI. GASTROINTESTINAL: Denies change in appetite, abdominal pain, nausea and vomiting, or diarrhea GENITOURINARY: Denies hematuria, denies infections. MUSKULOSKELETAL: Denies pain, denies swelling. INTEGUMENTARY: Denies rash, denies eczema. NEUROLOGICAL: Denies recent memory loss, no recent seizure activity. PSYCHIATRIC: Denies anxiety, denies depression. HEMATOLOGIC/LYMPHATIC: Denies anemia, denies enlarged lymph node Past Medical History Past Medical History: Cancer, Chest Pain / Angina, COPD, Deep Vein Thrombosis (DVT), Eye Disorder, Hearing Disorder / Deafness, Hyperlipidemia, Hypertension, Osteoarthritis (OA), Pneumonia, Prostate Disorder, Renal Disease Additional Past Medical History / Comment(s): Severe COPD with an FEV1 of 33% of predicted, chronic hypoxic respiratory failure, recurrent hospitalization for COPD exacerbation, stenotrophomonas tracheal bronchitis - HAD PFT 03/04/18. Bladder Cancer w/ prev surgery. RLE DVT. BPH. Chronic Back Pain. VARICOSE VEINS. O2 2L NC. ACUTE RENAL FAILURE 09/2017 R/T DEHYDRATION/DEPRESSION, PER . History of Any Multi-Drug Resistant Organisms: None Reported Past Surgical History: Bladder Surgery, Hernia Repair, Tonsillectomy Additional Past Surgical History / Comment(s): Bladder CA Surgery, Vasectomy. BRONCHIAL WASHING. EXC CATARACTS CARLOS., Past Anesthesia/Blood Transfusion Reactions: No Reported Reaction Past Psychological History: Anxiety, Depression Additional Psychological History / Comment(s): Pt resides with his spouse in a single level home that has 4 [address] steps..pt drives. He has a nebulizer, 02 uses prn. He has [facility] home care. Smoking Status: Former smoker Past Alcohol Use History: None Reported Additional Past Alcohol Use History / Comment(s): Pt started smoking in 1955 and quit in 1999. At one time smoking 2-3 ppd. Past Drug Use History: None Reported - Past Family History Father Family Medical History: Cancer Additional Family Medical History / Comment(s): Father had scoliosis. Father of lung cancer Mother History Unknown: Yes Family Medical History: CVA/TIA Additional Family Medical History / Comment(s): Mother . Unknown history Medications and Allergies Home Medications Medication Instructions Recorded Confirmed Type Simvastatin [Zocor] 40 mg PO DAILY 07/10/15 01/23/23 History Citalopram Hydrobromide [CeleXA] 20 mg PO DAILY #30 tab 09/18/17 01/23/23 Rx ALPRAZolam [Xanax] 0.5 mg PO TID PRN 03/28/18 01/23/23 History Latanoprost/Pf [Latanoprost 0.005% 1 drop BOTH EYES HS 04/20/22 01/23/23 History Eye Drop] Tamsulosin [Flomax] 0.4 mg PO HS #30 cap 04/25/22 01/23/23 Rx amLODIPine [Norvasc] 2.5 mg PO BID #60 tab 04/25/22 01/23/23 Rx predniSONE 5 mg PO DAILY #0 04/25/22 01/23/23 Rx Budesonide [Pulmicort] 0.5 mg INHALATION RT-BID 01/23/23 01/23/23 History Formoterol Fumarate [Perforomist] 20 mcg INHALATION RT-BID 01/23/23 01/23/23 History Allergies Allergy/AdvReac Type Severity Reaction Status Date / Time No Known Allergies Allergy Verified 01/23/23 14:09 Physical Exam Vitals: Vital Signs Temp Pulse Pulse Resp BP BP Pulse Ox 01/24/23 07:07 97.6 F 84 15 136/68 98 01/24/23 00:35 96.7 F L 90 18 112/61 97 01/23/23 21:15 99 01/23/23 21:03 92 01/23/23 20:56 98.2 F 87 18 125/57 100 01/23/23 20:47 90 99 01/23/23 19:42 88 20 144/92 96 01/23/23 18:31 98.2 F 91 20 144/63 97 01/23/23 15:50 91 01/23/23 15:39 94 01/23/23 14:07 98.0 F 80 16 144/83 97 01/23/23 12:10 92 01/23/23 11:55 88 01/23/23 11:45 80 01/23/23 11:43 01/23/23 11:21 22 01/23/23 11:13 98.7 F 93 22 194/94 100 FiO2 01/24/23 07:07 01/24/23 00:35 01/23/23 21:15 01/23/23 21:03 01/23/23 20:56 01/23/23 20:47 01/23/23 19:42 01/23/23 18:31 01/23/23 15:50 01/23/23 15:39 01/23/23 14:07 01/23/23 12:10 01/23/23 11:55 01/23/23 11:45 01/23/23 11:43 40 01/23/23 11:21 01/23/23 11:13 Intake and Output 01/23/23 01/24/23 01/24/23 22:59 06:59 14:59 Other: Voiding Method Diaper Weight 58.967 kg 54 kg GENERAL EXAM: Alert, 87-year-old white male who is frail, and comfortable in no apparent distress. HEAD: Normocephalic and atraumatic EYES: Normal reaction of pupils, equal size. NOSE: Clear with pink turbinates. THROAT: No erythema or exudates. NECK: No masses, no JVD. CHEST: No chest wall deformity. LUNGS: Equal air entry with right lower lobe inspiratory crackles. No significant wheezing, rhonchi, or focal dullness. He does have an intermittent congested cough. On 2 L/m nasal cannula. No conversational dyspnea or accessory muscle use.. CVS: S1 and S2 normal with no audible murmur, regular rhythm. No extra heart sounds ABDOMEN: No hepatosplenomegaly, active bowel sounds, no guarding or rigidity. SPINE: No scoliosis or deformity SKIN: No rashes CENTRAL NERVOUS SYSTEM: No focal deficits, tone is normal in all 4 extremities. EXTREMITIES: There is no peripheral edema, clubbing, or cyanosis. Peripheral pulses are intact. Results - Laboratory Findings CBC and BMP: 01/23/23 12:02 01/23/23 12:02 PT/INR, D-dimer PT 9.6 sec (9.0-12.0) 01/23/23 12:02 INR 0.9 (<1.2) 01/23/23 12:02 Abnormal lab findings: Abnormal Labs 01/23/23 01/23/23 01/23/23 12:02 12:02 12:02 RBC 3.56 L Hgb 9.2 L Hct 32.6 L MCHC 28.3 L RDW 16.4 H Lymphocytes # 0.9 L APTT 21.7 L Sodium 136 L Potassium 5.4 H BUN 50 H Creatinine 1.46 H Glucose 104 H Plasma Lactic Acid Ye 01/23/23 12:02 RBC Hgb Hct MCHC RDW Lymphocytes # APTT Sodium Potassium BUN Creatinine Glucose Plasma Lactic Acid Ye 2.1 H* - Diagnostic Findings Chest x-ray: image reviewed Assessment and Plan Assessment: Acute exacerbation of COPD, improving Chronic hypoxemic respiratory failure, currently on 2 L/m nasal cannula History of pulmonary hypertension Benign essential hypertension Hyperlipidemia Chronic kidney disease stage III Anemia of chronic disease History DVT History of bladder cancer Ex-smoker Plan: Patient's medications, labs, chest x-ray reviewed Continue supplemental oxygen Continue combination of DuoNeb's, formoterol, budesonide, IV Solu-Medrol Patient appears to be improving nicely, and will likely be switched over to prednisone taper Continue empiric azithromycin and check procalcitonin Anticipate discharge in the next 24-48 hours We will continue to follow I have personally seen and examined the patient, performed the documentation and the assessment and plan as written. Number of minutes spent on the visit:20 Time with Patient: Greater than 30
[2023-01-24] MEDS ORDERED: ALPRAZolam 0.5 MG TAB PO PRN (08:36)
[2023-01-24] MEDS: FORMOTEROL FUMARATE 20 MCG/2 ML NEBU INHALATION SCH ×2 (08:57→20:24)
[2023-01-24] MEDS: BUDESONIDE 0.5 MG/2 ML NEBU INHALATION SCH ×2 (08:57→20:25)
--- NOTE | 2023-01-24 08:57 | P.HPIM ---
History of Present Illness H&P Date: 01/24/23 Chief Complaint: Shortness of breath This is an 87-year-old male who presented to the emergency room with shortness of breath which has increased over the last several weeks. Upon arrival of EMS he was in respiratory distress, hypertensive and tachycardic, with a respiratory rate of 30. Patient has a medical history of severe oxygen-dependent COPD, pulmonary hypertension, hypertension, hyperlipidemia, DVT, and bladder cancer. He is maintained on 2 L of oxygen via nasal cannula at home. This morning he is seen sitting up in bed, maintained on 2 L of oxygen. He reports shortness of breath has somewhat improved, but does feel fatigued. Review of Systems Constitutional: Denies chills, Denies fever Cardiovascular: Reports dyspnea on exertion, Denies chest pain Respiratory: Reports cough, Reports dyspnea Gastrointestinal: Denies abdominal pain, Denies nausea Musculoskeletal: Denies arm numbness/tingling, Denies leg numbness/tingling Neurological: Reports weakness, Denies headaches Past Medical History Past Medical History: Cancer, Chest Pain / Angina, COPD, Deep Vein Thrombosis (DVT), Eye Disorder, Hearing Disorder / Deafness, Hyperlipidemia, Hypertension, Osteoarthritis (OA), Pneumonia, Prostate Disorder, Renal Disease Additional Past Medical History / Comment(s): Severe COPD with an FEV1 of 33% of predicted, chronic hypoxic respiratory failure, recurrent hospitalization for COPD exacerbation, stenotrophomonas tracheal bronchitis - HAD PFT 03/04/18. Bladder Cancer w/ prev surgery. RLE DVT. BPH. Chronic Back Pain. VARICOSE VEINS. O2 2L NC. ACUTE RENAL FAILURE 09/2017 R/T DEHYDRATION/DEPRESSION, PER . History of Any Multi-Drug Resistant Organisms: None Reported Past Surgical History: Bladder Surgery, Hernia Repair, Tonsillectomy Additional Past Surgical History / Comment(s): Bladder CA Surgery, Vasectomy. BRONCHIAL WASHING. EXC CATARACTS CARLOS., Past Anesthesia/Blood Transfusion Reactions: No Reported Reaction Past Psychological History: Anxiety, Depression Additional Psychological History / Comment(s): Pt resides with his spouse in a single level home that has 4 porchs steps..pt drives. He has a nebulizer, 02 uses prn. He has [facility] home care. Smoking Status: Former smoker Past Alcohol Use History: None Reported Additional Past Alcohol Use History / Comment(s): Pt started smoking in 5 and quit in 1999. At one time smoking 2-3 ppd. Past Drug Use History: None Reported - Past Family History Father Family Medical History: Cancer Additional Family Medical History / Comment(s): Father had scoliosis. Father of lung cancer Mother History Unknown: Yes Family Medical History: CVA/TIA Additional Family Medical History / Comment(s): Mother . Unknown history Medications and Allergies Home Medications Medication Instructions Recorded Confirmed Type Simvastatin [Zocor] 40 mg PO DAILY 07/10/15 01/23/23 History Citalopram Hydrobromide [CeleXA] 20 mg PO DAILY #30 tab 09/18/17 01/23/23 Rx ALPRAZolam [Xanax] 0.5 mg PO TID PRN 03/28/18 01/23/23 History Latanoprost/Pf [Latanoprost 0.005% 1 drop BOTH EYES HS 04/20/22 01/23/23 History Eye Drop] Tamsulosin [Flomax] 0.4 mg PO HS #30 cap 04/25/22 01/23/23 Rx amLODIPine [Norvasc] 2.5 mg PO BID #60 tab 04/25/22 01/23/23 Rx predniSONE 5 mg PO DAILY #0 04/25/22 01/23/23 Rx Budesonide [Pulmicort] 0.5 mg INHALATION RT-BID 01/23/23 01/23/23 History Formoterol Fumarate [Perforomist] 20 mcg INHALATION RT-BID 01/23/23 01/23/23 History Allergies Allergy/AdvReac Type Severity Reaction Status Date / Time No Known Allergies Allergy Verified 01/23/23 14:09 Physical Exam Vitals: Vital Signs Temp Pulse Pulse Resp BP BP Pulse Ox 01/24/23 07:07 97.6 F 84 15 136/68 98 01/24/23 00:35 96.7 F L 90 18 112/61 97 01/23/23 21:15 99 01/23/23 21:03 92 01/23/23 20:56 98.2 F 87 18 125/57 100 01/23/23 20:47 90 99 01/23/23 19:42 88 20 144/92 96 01/23/23 18:31 98.2 F 91 20 144/63 97 01/23/23 15:50 91 01/23/23 15:39 94 01/23/23 14:07 98.0 F 80 16 144/83 97 01/23/23 12:10 92 01/23/23 11:55 88 01/23/23 11:45 80 01/23/23 11:43 01/23/23 11:21 22 01/23/23 11:13 98.7 F 93 22 194/94 100 FiO2 01/24/23 07:07 01/24/23 00:35 01/23/23 21:15 01/23/23 21:03 01/23/23 20:56 01/23/23 20:47 01/23/23 19:42 01/23/23 18:31 01/23/23 15:50 01/23/23 15:39 01/23/23 14:07 01/23/23 12:10 01/23/23 11:55 01/23/23 11:45 01/23/23 11:43 40 01/23/23 11:21 01/23/23 11:13 Intake and Output 01/23/23 01/24/23 01/24/23 22:59 06:59 14:59 Other: Voiding Method Diaper Weight 58.967 kg 54 kg - Constitutional General appearance: cooperative, no acute distress - EENT Eyes: PERRLA - Neck Neck: no lymphadenopathy, normal ROM, no rigidity - Respiratory Respiratory: bilateral: diminished - Cardiovascular Rhythm: regular Heart sounds: normal: S1, S2 - Gastrointestinal General gastrointestinal: soft, no tenderness - Integumentary Integumentary: normal, normal turgor - Musculoskeletal Musculoskeletal: generalized weakness - Psychiatric Psychiatric: A&O x's 3, appropriate affect, intact judgment & insight Results CBC & Chem 7: 01/23/23 12:02 01/23/23 12:02 Labs: Abnormal Lab Results - Last 24 Hours (Table) 01/23/23 01/23/23 01/23/23 Range/Units 12:02 12:02 12:02 RBC 3.56 L (4.30-5.90) m/uL Hgb 9.2 L (13.0-17.5) gm/dL Hct 32.6 L (39.0-53.0) % MCHC 28.3 L (31.0-37.0) g/dL RDW 16.4 H (11.5-15.5) % Lymphocytes # 0.9 L (1.0-4.8) k/uL APTT 21.7 L (22.0-30.0) sec Sodium 136 L (137-145) mmol/L Potassium 5.4 H (3.5-5.1) mmol/L BUN 50 H (9-20) mg/dL Creatinine 1.46 H (0.66-1.25) mg/dL Glucose 104 H (74-99) mg/dL Plasma Lactic Acid Ye (0.7-2.0) mmol/L 01/23/23 Range/Units 12:02 RBC (4.30-5.90) m/uL Hgb (13.0-17.5) gm/dL Hct (39.0-53.0) % MCHC (31.0-37.0) g/dL RDW (11.5-15.5) % Lymphocytes # (1.0-4.8) k/uL APTT (22.0-30.0) sec Sodium (137-145) mmol/L Potassium (3.5-5.1) mmol/L BUN (9-20) mg/dL Creatinine (0.66-1.25) mg/dL Glucose (74-99) mg/dL Plasma Lactic Acid Ye 2.1 H* (0.7-2.0) mmol/L Thrombosis Risk Factor Assmnt - Choose All That Apply Any of the Below Risk Factors Present?: Yes Each Factor Represents 1 point: Abnormal pulmonary function (COPD) Other Risk Factors: Yes Each Risk Factor Represents 3 Points: Age 75 years or older Thrombosis Risk Factor Assessment Total Risk Factor Score: 4 Thrombosis Risk Factor Assessment Level: Moderate Risk Assessment and Plan (1) Acute exacerbation of chronic obstructive airways disease Current Visit: Yes Status: Acute Code(s): J44.1 - CHRONIC OBSTRUCTIVE PULMONARY DISEASE W (ACUTE) EXACERBATION SNOMED Code(s): 758752130 (2) Dyspnea Current Visit: No Status: Acute Code(s): R06.00 - DYSPNEA, UNSPECIFIED SNOMED Code(s): 065922307 (3) Hyperlipidemia Current Visit: No Status: Acute Code(s): E78.5 - HYPERLIPIDEMIA, UNSPECIFIED SNOMED Code(s): 40854215 (4) Hypertension Current Visit: No Status: Acute Code(s): I10 - ESSENTIAL (PRIMARY) HYPERTENSION SNOMED Code(s): 69495495 (5) History of pulmonary hypertension Current Visit: Yes Status: Acute Code(s): Z86.79 - PERSONAL HISTORY OF OTHER DISEASES OF THE CIRCULATORY SYSTEM SNOMED Code(s): 725001681 Plan: Home medications have been reconciled. Add Protonix for GI prophylaxis. Pulmonology has been consulted, appreciate recommendations. Patient wishes to be a no code. Patient seen and evaluated by nurse practitioner, physician in agreement with plan
[2023-01-24] MEDS: IPRATROPIUM-ALBUTEROL 3 ML NEB INHALATION SCH ×4 (08:58→20:25)
[2023-01-24] MEDS ORDERED: amLODIPine 2.5 MG TAB PO SCH (09:00)
[2023-01-24] MEDS ORDERED: CITALOPRAM HYDROBROMIDE 20 MG TAB PO SCH (09:00)
[2023-01-24] MEDS ORDERED: ATORVASTATIN 40 MG TAB PO SCH (09:00)
[2023-01-24] MEDS: PANTOPRAZOLE 40 MG TABLET PO SCH (09:53)
[2023-01-24] MEDS: amLODIPine 2.5 MG TAB PO SCH ×2 (09:53→20:22)
[2023-01-24] MEDS: ATORVASTATIN 20 MG TAB PO SCH (09:53)
[2023-01-24] MEDS: CITALOPRAM HYDROBROMIDE 20 MG TAB PO SCH (09:53)
[2023-01-24] MEDS: AZITHROMYCIN 250 MG TAB PO SCH (10:13)
[2023-01-24] MEDS: TAMSULOSIN 0.4 MG CAP.ER.24H PO SCH (17:13)
[2023-01-24] MEDS ORDERED: BUDESONIDE 0.5 MG/2 ML NEBU INHALATION SCH (20:00)
[2023-01-24] MEDS ORDERED: FORMOTEROL FUMARATE 20 MCG/2 ML NEBU INHALATION SCH (20:00)
[2023-01-24] MEDS: LATANOPROST 0.005% OPHTH DROPS 2.5 ML BTL BOTH EYES SCH (20:22)
[2023-01-24] MEDS ORDERED: NON FORMULARY DRUG (Latanoprost/Pf [Latanoprost 0.005% Eye Drop] 7.5 ML Ml) BOTH EYES SCH (21:00)
[2023-01-24] MEDS ORDERED: TAMSULOSIN 0.4 MG CAP.ER.24H PO SCH (21:00)
[2023-01-25] MEDS: methylPREDNISolone SOD SUCCI 125 MG/2 ML VIAL IV SCH ×4 (05:57→23:47)
[2023-01-25] MEDS: PANTOPRAZOLE 40 MG TABLET PO SCH (05:58)
[2023-01-25] MEDS: ATORVASTATIN 20 MG TAB PO SCH (08:32)
[2023-01-25] MEDS: AZITHROMYCIN 250 MG TAB PO SCH (08:32)
[2023-01-25] MEDS: amLODIPine 2.5 MG TAB PO SCH ×2 (08:32→22:08)
[2023-01-25] MEDS: CITALOPRAM HYDROBROMIDE 20 MG TAB PO SCH (08:33)
--- NOTE | 2023-01-25 08:34 | P.PN ---
Subjective Progress Note Date: 01/25/23 Principal diagnosis: Acute exacerbation of COPD. The patient is here essentially for COPD. He states he is feeling minimal improvement today. No voiding difficulties. Minimal ambulation is noted. No significant nausea, vomiting or diarrhea. Objective - Vital Signs Vital signs: Vital Signs Temp 97.4 F L 01/25/23 06:54 Pulse 87 01/25/23 06:54 Resp 19 01/25/23 06:54 BP 165/72 01/25/23 06:54 Pulse Ox 100 01/25/23 06:54 FiO2 40 01/23/23 11:43 Intake & Output 01/24/23 01/25/23 01/25/23 18:59 06:59 18:59 Intake Total 180 Balance 180 Weight 54 kg 55 kg Intake: Oral 180 Other: Voiding Method Diaper Urinal # Voids 4 1 # Bowel Movements 0 - Constitutional General appearance: Present: thin - EENT Eyes: Absent: abnormal pupil - Neck Neck: Absent: lymphadenopathy - Respiratory Respiratory: bilateral: diminished - Cardiovascular Rhythm: regular Heart sounds: normal: S1, S2 Abnormal Heart Sounds: Absent: S3 Gallop - Gastrointestinal General gastrointestinal: Present: soft. Absent: tenderness - Integumentary Integumentary: Absent: cellulitis - Labs CBC & Chem 7: 01/23/23 12:02 01/23/23 12:02 Labs: Abnormal Lab Results - Last 24 Hours (Table) 01/24/23 Range/Units 02:16 Procalcitonin 0.10 H (0.02-0.09) ng/mL Assessment and Plan (1) Acute exacerbation of chronic obstructive airways disease Current Visit: Yes Status: Acute Code(s): J44.1 - CHRONIC OBSTRUCTIVE PULMONARY DISEASE W (ACUTE) EXACERBATION SNOMED Code(s): 362438667 (2) History of pulmonary hypertension Current Visit: Yes Status: Acute Code(s): Z86.79 - PERSONAL HISTORY OF OTHER DISEASES OF THE CIRCULATORY SYSTEM SNOMED Code(s): 498665504 Plan: Continue steroids with empiric treatment for COPD. Check CBC and CMP in a.m. Appreciate pulmonology input. Prognosis is guarded secondary to his advancing age and multiple comorbidity history. [facility] will be covering for the weekend.
[2023-01-25] MEDS: IPRATROPIUM-ALBUTEROL 3 ML NEB INHALATION SCH ×4 (08:49→20:42)
[2023-01-25] MEDS: FORMOTEROL FUMARATE 20 MCG/2 ML NEBU INHALATION SCH ×2 (08:49→20:42)
[2023-01-25] MEDS: BUDESONIDE 0.5 MG/2 ML NEBU INHALATION SCH ×2 (08:50→20:42)
[2023-01-25] MEDS: ALPRAZolam 0.5 MG TAB PO PRN (10:29)
--- NOTE | 2023-01-25 10:57 | P.PN ---
Subjective Progress Note Date: 01/25/23 I am seeing this patient in new consultation today 01/24/2023 for suspected acute COPD exacerbation. Patient is an 87-year-old white male with past medical history significant for severe oxygen dependent COPD, pulmonary hypertension, hypertension, hyperlipidemia, DVT, bladder cancer. Patient does follow up in the office with Dr. Chavarria, for management of his severe COPD with FEV1 41% of predicted. Patient does utilize 2 L/m nasal cannula 28/01. Patient's primary care provider is Dr. Elizabeth. Patient is fairly hard of hearing, making it difficult to communicate. Apparently, the patient has had some progressive shortness of breath and cough for the last several weeks. He presented to the emergency room via EMS yesterday afternoon. He was found to be in some acute respiratory distress. He was also hypertensive and tachycardic. Chest x-ray on arrival showed no acute cardiopulmonary process. Patient is currently sitting up in bed, on 2 L/m nasal cannula, in no acute distress. He is currently on a combination of DuoNeb's, desonide, formoterol, and IV Solu-Medrol. He seems fairly comfortable, and is already showing improvement in his respiratory status. Denies any fever, chills, myalgias, cough, hemoptysis. Denies any chest pain, heart palpitations, lower extremity edema, orthopnea. CBC on arrival showed a WBC count of 7.3, hemoglobin 9.2, hematocrit 32.6, platelets 383. BMP on arrival shows sodium 136, potassium 5.4, chloride 103, serum bicarb 24, BUN 50, creatinine 1.46, glucose 104. NT proBNP was mildly elevated at 1150, but not significant for age. Troponin was 0.025. Overall, the patient's condition seems to be improving nicely. The patient is seen today 01/25/2023 in follow-up on the regular medical floor. He is currently sitting up in bed. Awake and alert. Still with wheezing and bronchospasm. Maintaining good O2 saturations up to 100% on 2 L/m per nasal cannula. Continued on DuoNeb inhalations, Perforomist and Pulmicort inhalations, Solu-Medrol. Antibiotics in the form of azithromycin. Barboza virus not detected. Objective - Vital Signs Vital signs: Vital Signs Temp 97.4 F L 01/25/23 06:54 Pulse 84 01/25/23 09:10 Resp 19 01/25/23 06:54 BP 165/72 01/25/23 06:54 Pulse Ox 100 01/25/23 08:50 FiO2 40 01/23/23 11:43 Intake & Output 01/24/23 01/25/23 01/25/23 18:59 06:59 18:59 Intake Total 180 Balance 180 Weight 54 kg 55 kg Intake: Oral 180 Other: Voiding Method Diaper Urinal # Voids 4 1 # Bowel Movements 0 - Exam GENERAL EXAM: Alert, pleasant, frail 87-year-old male, 2 L nasal cannula, comfortable in no apparent distress. HEAD: Normocephalic and atraumatic EYES: Normal reaction of pupils, equal size. NOSE: Clear with pink turbinates. THROAT: No erythema or exudates. NECK: No masses, no JVD. CHEST: No chest wall deformity. LUNGS: Equal air entry with right lower lobe inspiratory crackles. Bilateral wheeze. CVS: S1 and S2 normal with no audible murmur, regular rhythm. No extra heart sounds ABDOMEN: No hepatosplenomegaly, active bowel sounds, no guarding or rigidity. SPINE: No scoliosis or deformity SKIN: No rashes CENTRAL NERVOUS SYSTEM: No focal deficits, tone is normal in all 4 extremities. EXTREMITIES: There is no peripheral edema, clubbing, or cyanosis. Peripheral pulses are intact. - Labs CBC & Chem 7: 01/23/23 12:02 01/23/23 12:02 Assessment and Plan Assessment: Acute exacerbation of obstructive pulmonary disease. Chest x-ray showed no acute process Chronic hypoxemic respiratory failure, currently on 2 L/m nasal cannula History of pulmonary hypertension Benign essential hypertension Hyperlipidemia Chronic kidney disease stage III Anemia of chronic disease History DVT History of bladder cancer Ex-smoker Plan: The patient was seen and evaluated Medications are reviewed Stable on 2 L nasal cannula Continued on bronchodilators, steroids Empiric antibiotics Not quite ready for discharge We will continue to follow I have personally seen and examined the patient, performed the documentation and the assessment and plan as written. Number of minutes spent on the visit: 10.
[2023-01-25 11:10] LABS: HCT 28.9 % (39.6-50.0); HGB 8.7 d/dL (12.0-15.0); MCH 28.2 pg (27.0-32.0); MCHC 30.1 d/dL (32.0-37.0); MCV 93.5 FL (80.0-97.0); Mean Platelet Volume 9.8 FL (9.5-12.2); NRBC Per 100 WBC 0 X 10*3/uL (0.00-0.01); Platelet Count 534 X 10*3/uL (140-440); RBC 3.09 X 10*6/uL (4.40-5.60); RDW 17.2 % (11.5-14.5); WBC 11.67 X 10*3/uL (4.50-10.00)
[2023-01-25 11:27] LABS: ALT 20 U/L (10-49); AST 22 U/L (14-35); Albumin 3.6 d/dL (3.8-4.9); Alkaline Phosphatase 65 U/L (41-126); BUN/Creat Ratio 29.55 Ratio (12.00-20.00); Blood Urea Nitrogen 59.1 mg/dL (9.0-27.0); Calcium 8.7 mg/dL (8.7-10.3); Carbon Dioxide 23.9 mmol/L (21.6-31.8); Chloride 104 mmol/L (96-109); Glucose 116 mg/dL (70-110); Potassium 5.7 mmol/L (3.5-5.5); Sodium 139 mmol/L (135-145); Total Bilirubin <0.2 mg/dL (0.3-1.2); Total Protein 6.6 d/dL (6.2-8.2)
[2023-01-25] MEDS: TAMSULOSIN 0.4 MG CAP.ER.24H PO SCH (17:54)
[2023-01-25] MEDS: LATANOPROST 0.005% OPHTH DROPS 2.5 ML BTL BOTH EYES SCH (22:11)
[2023-01-26] MEDS: methylPREDNISolone SOD SUCCI 125 MG/2 ML VIAL IV SCH ×4 (05:59→23:40)
[2023-01-26] MEDS: PANTOPRAZOLE 40 MG TABLET PO SCH (06:53)
[2023-01-26] MEDS: IPRATROPIUM-ALBUTEROL 3 ML NEB INHALATION SCH ×4 (07:57→20:04)
[2023-01-26] MEDS: FORMOTEROL FUMARATE 20 MCG/2 ML NEBU INHALATION SCH ×2 (07:57→20:04)
[2023-01-26] MEDS: BUDESONIDE 0.5 MG/2 ML NEBU INHALATION SCH ×2 (07:57→20:05)
[2023-01-26] MEDS: ATORVASTATIN 20 MG TAB PO SCH (09:12)
[2023-01-26] MEDS: CITALOPRAM HYDROBROMIDE 20 MG TAB PO SCH (09:12)
[2023-01-26] MEDS: AZITHROMYCIN 250 MG TAB PO SCH (09:12)
[2023-01-26] MEDS: amLODIPine 2.5 MG TAB PO SCH ×2 (09:12→21:05)
[2023-01-26 09:20] LABS: HCT 29.8 % (39.6-50.0); MCH 28.6 pg (27.0-32.0); MCHC 30.2 d/dL (32.0-37.0); MCV 94.6 FL (80.0-97.0); Mean Platelet Volume 9.8 FL (9.5-12.2); NRBC Per 100 WBC 0 X 10*3/uL (0.00-0.01); Platelet Count 615 X 10*3/uL (140-440); RBC 3.15 X 10*6/uL (4.40-5.60); RDW 17.5 % (11.5-14.5); WBC 10.41 X 10*3/uL (4.50-10.00)
[2023-01-26 10:05] LABS: ALT 24 U/L (10-49); AST 24 U/L (14-35); Albumin 3.7 d/dL (3.8-4.9); Albumin/Globulin Ratio 1.23 Ratio (1.60-3.17); Alkaline Phosphatase 63 U/L (41-126); BUN/Creat Ratio 37.26 Ratio (12.00-20.00); Blood Urea Nitrogen 70.8 mg/dL (9.0-27.0); Calcium 9.1 mg/dL (8.7-10.3); Carbon Dioxide 25.9 mmol/L (21.6-31.8); Chloride 104 mmol/L (96-109); Glucose 123 mg/dL (70-110); Potassium 6.1 mmol/L (3.5-5.5); Sodium 138 mmol/L (135-145); Total Bilirubin <0.2 mg/dL (0.3-1.2); Total Protein 6.7 d/dL (6.2-8.2)
--- NOTE | 2023-01-26 10:57 | P.PN ---
Subjective Progress Note Date: 01/26/23 I am seeing this patient in new consultation today 01/24/2023 for suspected acute COPD exacerbation. Patient is an 87-year-old white male with past medical history significant for severe oxygen dependent COPD, pulmonary hypertension, hypertension, hyperlipidemia, DVT, bladder cancer. Patient does follow up in the office with Dr. Chavarria, for management of his severe COPD with FEV1 41% of predicted. Patient does utilize 2 L/m nasal cannula 28/01. Patient's primary care provider is Dr. Elizabeth. Patient is fairly hard of hearing, making it difficult to communicate. Apparently, the patient has had some progressive shortness of breath and cough for the last several weeks. He presented to the emergency room via EMS yesterday afternoon. He was found to be in some acute respiratory distress. He was also hypertensive and tachycardic. Chest x-ray on arrival showed no acute cardiopulmonary process. Patient is currently sitting up in bed, on 2 L/m nasal cannula, in no acute distress. He is currently on a combination of DuoNeb's, desonide, formoterol, and IV Solu-Medrol. He seems fairly comfortable, and is already showing improvement in his respiratory status. Denies any fever, chills, myalgias, cough, hemoptysis. Denies any chest pain, heart palpitations, lower extremity edema, orthopnea. CBC on arrival showed a WBC count of 7.3, hemoglobin 9.2, hematocrit 32.6, platelets 383. BMP on arrival shows sodium 136, potassium 5.4, chloride 103, serum bicarb 24, BUN 50, creatinine 1.46, glucose 104. NT proBNP was mildly elevated at 1150, but not significant for age. Troponin was 0.025. Overall, the patient's condition seems to be improving nicely. The patient is seen today 01/25/2023 in follow-up on the regular medical floor. He is currently sitting up in bed. Awake and alert. Still with wheezing and bronchospasm. Maintaining good O2 saturations up to 100% on 2 L/m per nasal cannula. Continued on DuoNeb inhalations, Perforomist and Pulmicort inhalations, Solu-Medrol. Antibiotics in the form of azithromycin. Barboza virus not detected. The patient is seen today 01/26/2023 in follow-up on the regular medical floor. He is awake and alert in no acute distress. Maintaining O2 saturations in the 90s on 2 L/m per nasal cannula. He is still having significant cough and congestion and wheezing. Continued on DuoNeb inhalations, Pulmicort and perforomist inhalations, IV Solu-Medrol. Completed azithromycin. White count 10.4. Hemoglobin 9.0. Platelets 6:15. Sodium 138. Potassium 6.1. BUN 70. Creatinine 1.9. Glucose 123. Objective - Vital Signs Vital signs: Vital Signs Temp 97.5 F L 01/26/23 07:33 Pulse 90 01/26/23 08:31 Resp 18 01/26/23 07:33 BP 151/72 01/26/23 07:33 Pulse Ox 99 01/26/23 07:58 FiO2 40 01/23/23 11:43 Intake & Output 01/25/23 01/26/23 01/26/23 18:59 06:59 18:59 Intake Total 360 Balance 360 Weight 56.5 kg Intake: Oral 360 Other: Voiding Method Urinal # Voids 6 1 # Bowel Movements 2 - Exam GENERAL EXAM: Alert, pleasant, hard of hearing 87-year-old male, 2 L nasal cannula, comfortable in no apparent distress. HEAD: Normocephalic and atraumatic EYES: Normal reaction of pupils, equal size. NOSE: Clear with pink turbinates. THROAT: No erythema or exudates. NECK: No masses, no JVD. CHEST: No chest wall deformity. LUNGS: Equal air entry with right lower lobe inspiratory crackles. Bilateral wheeze. CVS: S1 and S2 normal with no audible murmur, regular rhythm. No extra heart sounds ABDOMEN: No hepatosplenomegaly, active bowel sounds, no guarding or rigidity. SPINE: No scoliosis or deformity SKIN: No rashes CENTRAL NERVOUS SYSTEM: No focal deficits, tone is normal in all 4 extremities. EXTREMITIES: There is no peripheral edema, clubbing, or cyanosis. Peripheral pulses are intact. - Labs CBC & Chem 7: 01/26/23 06:10 01/26/23 06:10 Labs: Abnormal Lab Results - Last 24 Hours (Table) 01/25/23 01/25/23 01/26/23 Range/Units 06:22 06:22 06:10 WBC 11.67 H 10.41 H (4.50-10.00) X 10*3/uL RBC 3.09 L 3.15 L (4.40-5.60) X 10*6/uL Hgb 8.7 L 9.0 L (12.0-15.0) d/dL Hct 28.9 L 29.8 L (39.6-50.0) % MCHC 30.1 L 30.2 L (32.0-37.0) d/dL RDW 17.2 H 17.5 H (11.5-14.5) % Plt Count 534 H 615 H (140-440) X 10*3/uL Potassium 5.7 H (3.5-5.5) mmol/L BUN 59.1 H (9.0-27.0) mg/dL Creatinine 2.0 H (0.6-1.5) mg/dL Est GFR (CKD-EPI) 32 L (>=60) BUN/Creatinine Ratio 29.55 H (12.00-20.00) Ratio Glucose 116 H (70-110) mg/dL Total Bilirubin <0.2 L (0.3-1.2) mg/dL Albumin 3.6 L (3.8-4.9) d/dL Albumin/Globulin Ratio 1.20 L (1.60-3.17) Ratio // Range/Units 06:10 WBC (4.50-10.00) X 10*3/uL RBC (4.40-5.60) X 10*6/uL Hgb (12.0-15.0) d/dL Hct (39.6-50.0) % MCHC (32.0-37.0) d/dL RDW (11.5-14.5) % Plt Count (140-440) X 10*3/uL Potassium 6.1 H* (3.5-5.5) mmol/L BUN 70.8 H (9.0-27.0) mg/dL Creatinine 1.9 H (0.6-1.5) mg/dL Est GFR (CKD-EPI) 34 L (>=60) BUN/Creatinine Ratio 37.26 H (12.00-20.00) Ratio Glucose 123 H (70-110) mg/dL Total Bilirubin <0.2 L (0.3-1.2) mg/dL Albumin 3.7 L (3.8-4.9) d/dL Albumin/Globulin Ratio 1.23 L (1.60-3.17) Ratio Assessment and Plan Assessment: Acute exacerbation of obstructive pulmonary disease. Chest x-ray showed no acute process Chronic hypoxemic respiratory failure, currently on 2 L/m nasal cannula History of pulmonary hypertension Benign essential hypertension Hyperlipidemia Chronic kidney disease stage III Anemia of chronic disease History DVT History of bladder cancer Ex-smoker Plan: The patient was seen and evaluated Medications and labs are reviewed Continued on bronchodilators, steroids Completed empiric antibiotics Not quite ready for discharge We will continue to follow I have personally seen and examined the patient, performed the documentation and the assessment and plan as written. Number of minutes spent on the visit: 10.
[2023-01-26] MEDS ORDERED: CALCIUM GLUCONATE IN NACL 1 GM in SALINE 1 100ML.BAG IVPB ONE (11:12)
[2023-01-26] MEDS ORDERED: SODIUM BICARB 8.4% 50 ML SYR (1 MEQ/ML) IV STA (11:12)
[2023-01-26] MEDS ORDERED: INSULIN REGULAR 100 UNIT/ML VIAL (IV) IV ONE (11:13)
[2023-01-26] MEDS ORDERED: ALBUTEROL NEBULIZED 2.5 MG/3 ML INHALATION STA (11:13)
[2023-01-26] MEDS ORDERED: DEXTROSE 50% SYRINGE 50 ML IVP STA (11:14)
--- NOTE | 2023-01-26 12:10 | P.PN ---
Subjective This is an 87-year-old male who presented to the emergency room with shortness of breath which has increased over the last several weeks. Upon arrival of EMS he was in respiratory distress, hypertensive and tachycardic, with a respiratory rate of 30. Patient has a medical history of severe oxygen-dependent COPD, pulmonary hypertension, hypertension, hyperlipidemia, DVT, and bladder cancer. He is maintained on 2 L of oxygen via nasal cannula at home. This morning he is seen sitting up in bed, maintained on 2 L of oxygen. He reports shortness of breath has somewhat improved, but does feel fatigued. 01/26/2023 Patient is still short of breath and tachypnea with mild to moderate respiratory distress. However patient is able to eat and talk with his mild difficulty. Occasional coughing but no chest pain. Patient currently on IV Solu-Medrol and followed closely by pulmonary team. Creatinine at baseline 2.0 and 1.9 however potassium is getting up 5.7 6.1 today. 3 going to give cocktail and consult nephrology team. Objective - Vital Signs Vital signs: Vital Signs Temp 97.5 F L 01/26/23 07:33 Pulse 84 01/26/23 11:48 Resp 18 01/26/23 07:33 BP 151/72 01/26/23 07:33 Pulse Ox 99 01/26/23 07:58 FiO2 40 01/23/23 11:43 Intake & Output 01/25/23 01/26/23 01/26/23 18:59 06:59 18:59 Intake Total 360 Balance 360 Weight 56.5 kg Intake: Oral 360 Other: Voiding Method Urinal # Voids 6 1 # Bowel Movements 2 - Exam GENERAL: The patient is alert and oriented x3, not in any acute distress. Well developed, well nourished. HEENT: Pupils are round and equally reacting to light. EOMI. No scleral icterus. No conjunctival pallor. Normocephalic, atraumatic. No pharyngeal erythema. No thyromegaly. CARDIOVASCULAR: S1 and S2 present. No murmurs, rubs, or gallops. -PULMONARY: Chest is clear to auscultation, bilateral expiratory wheezing , no crackles. ABDOMEN: Soft, nontender, nondistended, normoactive bowel sounds. No palpable organomegaly. MUSCULOSKELETAL: No joint swelling or deformity. EXTREMITIES: No cyanosis, clubbing, or pedal edema. NEUROLOGICAL: Gross neurological examination did not reveal any focal deficits. SKIN: No rashes. no petechiae. - Labs CBC & Chem 7: 01/26/23 06:10 01/26/23 06:10 Labs: Abnormal Lab Results - Last 24 Hours (Table) 01/26/23 01/26/23 Range/Units 06:10 06:10 WBC 10.41 H (4.50-10.00) X 10*3/uL RBC 3.15 L (4.40-5.60) X 10*6/uL Hgb 9.0 L (12.0-15.0) d/dL Hct 29.8 L (39.6-50.0) % MCHC 30.2 L (32.0-37.0) d/dL RDW 17.5 H (11.5-14.5) % Plt Count 615 H (140-440) X 10*3/uL Potassium 6.1 H* (3.5-5.5) mmol/L BUN 70.8 H (9.0-27.0) mg/dL Creatinine 1.9 H (0.6-1.5) mg/dL Est GFR (CKD-EPI) 34 L (>=60) BUN/Creatinine Ratio 37.26 H (12.00-20.00) Ratio Glucose 123 H (70-110) mg/dL Total Bilirubin <0.2 L (0.3-1.2) mg/dL Albumin 3.7 L (3.8-4.9) d/dL Albumin/Globulin Ratio 1.23 L (1.60-3.17) Ratio Assessment and Plan Assessment: Acute COPD exacerbation Acute hypoxic respiratory failure Hyperkalemia Chronic kidney disease stage III Normochromic, normocytic anemia Chronic kidney disease stage III Plan: Continue with IV Solu-Medrol Give calcium and sodium bicarbonate for hyperkalemia and monitor potassium level with nephrology consult Labs and medication were reviewed.. Continue same treatment. Continue with symptomatic treatment. Resume home medication. Monitor labs and vitals. DVT and GI prophylaxis. Further recommendations as per clinical course of the patient DVT prophylaxis: Subcutaneous heparin GI Prophylaxis: Ppi Prognosis is guarded
--- NOTE | 2023-01-26 14:03 | P.NPCON ---
History of Present Illness - Reason for Consult acute renal failure - History of Present Illness Patient is an 87-year-old male who is very hard of hearing. He has underlying history of COPD, DVT, hypertension and hyperlipidemia. Patient is admitted to the hospital with complaints of increased weakness. He has had decreased oral intake. No significant shortness of breath. Patient has oxygen-dependent COPD. He also has a history of bladder cancer with no plans on intervention according to the patient. Serum creatinine was 1.4 mg/dL on initial admission and increased to 2.0 yesterday and it is 1.9 today. Previous creatinine noted to be 1.8-2 mg/dL in April 2022 and previous creatinine was 1.3 in 2019. Blood pressure is not low Patient is currently voiding. Not on MICHELE inhibitor's or NSAIDs. Currently not on IV fluids. Chest x-ray on admission does not show any acute findings. Potassium was elevated at 6.1. Blood sugar is not high. Bowel movements recorded 2 on 01/25/2023 Review of Systems As per HPI Past Medical History Past Medical History: Cancer, Chest Pain / Angina, COPD, Deep Vein Thrombosis (DVT), Eye Disorder, Hearing Disorder / Deafness, Hyperlipidemia, Hypertension, Osteoarthritis (OA), Pneumonia, Prostate Disorder, Renal Disease Additional Past Medical History / Comment(s): Severe COPD with an FEV1 of 33% of predicted, chronic hypoxic respiratory failure, recurrent hospitalization for COPD exacerbation, stenotrophomonas tracheal bronchitis - HAD PFT 03/04/18. Bladder Cancer w/ prev surgery. RLE DVT. BPH. Chronic Back Pain. VARICOSE VEINS. O2 2L NC. ACUTE RENAL FAILURE 09/2017 R/T DEHYDRATION/DEPRESSION, PER . History of Any Multi-Drug Resistant Organisms: None Reported Past Surgical History: Bladder Surgery, Hernia Repair, Tonsillectomy Additional Past Surgical History / Comment(s): Bladder CA Surgery, Vasectomy. BRONCHIAL WASHING. EXC CATARACTS CARLOS., Past Anesthesia/Blood Transfusion Reactions: No Reported Reaction Past Psychological History: Anxiety, Depression Additional Psychological History / Comment(s): Pt resides with his spouse in a single level home that has 4 porchs steps..pt drives. He has a nebulizer, 02 uses prn. He has [facility] home care. Smoking Status: Former smoker Past Alcohol Use History: None Reported Additional Past Alcohol Use History / Comment(s): Pt started smoking in 5 and quit in 1999. At one time smoking 2-3 ppd. Past Drug Use History: None Reported - Past Family History Father Family Medical History: Cancer Additional Family Medical History / Comment(s): Father had scoliosis. Father of lung cancer Mother History Unknown: Yes Family Medical History: CVA/TIA Additional Family Medical History / Comment(s): Mother . Unknown history Medications and Allergies Home Medications Medication Instructions Recorded Confirmed Type Simvastatin [Zocor] 40 mg PO DAILY 07/10/15 01/23/23 History Citalopram Hydrobromide [CeleXA] 20 mg PO DAILY #30 tab 09/18/17 01/23/23 Rx ALPRAZolam [Xanax] 0.5 mg PO TID PRN 03/28/18 01/23/23 History Latanoprost/Pf [Latanoprost 0.005% 1 drop BOTH EYES HS 04/20/22 01/23/23 History Eye Drop] Tamsulosin [Flomax] 0.4 mg PO HS #30 cap 04/25/22 01/23/23 Rx amLODIPine [Norvasc] 2.5 mg PO BID #60 tab 04/25/22 01/23/23 Rx predniSONE 5 mg PO DAILY #0 04/25/22 01/23/23 Rx Budesonide [Pulmicort] 0.5 mg INHALATION RT-BID 01/23/23 01/23/23 History Formoterol Fumarate [Perforomist] 20 mcg INHALATION RT-BID 01/23/23 01/23/23 History Allergies Allergy/AdvReac Type Severity Reaction Status Date / Time No Known Allergies Allergy Verified 01/23/23 14:09 Physical Exam Vitals: Vital Signs Temp Pulse Pulse Resp BP Pulse Ox 01/26/23 13:54 97.7 F 103 H 16 170/64 98 01/26/23 11:48 84 01/26/23 11:37 80 01/26/23 08:31 90 01/26/23 08:08 88 01/26/23 08:07 88 01/26/23 07:58 91 99 01/26/23 07:33 97.5 F L 87 18 151/72 98 01/26/23 01:48 97.8 F 88 17 138/75 96 01/25/23 21:14 78 07/21/23 20:59 82 01/25/23 20:44 80 01/25/23 19:29 97.7 F 90 18 152/62 100 01/25/23 15:46 78 01/25/23 15:35 76 Intake and Output 01/25/23 01/26/23 01/26/23 22:59 06:59 14:59 Intake Total 180 Balance 180 Intake: Oral 180 Other: Voiding Method Urinal # Voids 6 1 # Bowel Movements 2 Weight 56.5 kg Patient is awake, comfortable, no acute distress Examination of the heart S1 and S2 Examination of the lungs bilateral breath sounds are heard, occasional wheezing Abdomen is soft nontender 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 Patient is very hard of hearing. Results - Lab Results Most recent lab results Calcium 9.1 mg/dL (8.7-10.3) 01/26/23 06:10 Magnesium 2.3 mg/dL (1.6-2.3) 01/23/23 12:02 01/26/23 06:10 01/26/23 06:10 Assessment and Plan Assessment: 1. Acute kidney injury, nonoliguric ATN. Worsened with anemia. Rule out obstructive uropathy. Check UA and check ultrasound of the kidneys. No nephrotoxic agents on board. 2. Hyperkalemia associated with acute kidney injury rule out obstructive uropathy 3. History of bladder cancer 4. Anemia rule out iron deficiency 5. Acute hypoxic respiratory failure secondary to COPD exacerbation 6. Acute COPD exacerbation maintained on steroids Plan: Check bladder scan Check ultrasound of the kidneys Check urine analysis Add gentle IV hydration Continue to encourage increase oral intake Avoid hypotension Repeat labs in a.m. Thank you for the consultation. We will continue to follow the patient with you during his hospitalization
[2023-01-26] MEDS: SODIUM CHLORIDE 0.9% 1,000 ML IV SCH (15:37)
--- NOTE | 2023-01-26 16:17 | US ---
EXAMINATION TYPE: US kidneys/renal and bladder DATE OF EXAM: 01/26/2023 COMPARISON: Renal ultrasound 09/11/2017 CLINICAL INDICATION: Male, 87 years old with history of keenan; EXAM MEASUREMENTS: Right Kidney: 10.5 x 4.6 x 3.9 cm Left Kidney: 9.5 x 4.3 x 3.7 cm Right Kidney: minimal/mild hydronephrosis Left Kidney: moderate to severe hydronephrosis, hydroureter Bladder: diverticula noted Bilateral Jets seen: no No nephrolithiasis or solid mass involving either kidney. Mild right and moderate to severe left hydr onephrosis with left hydroureter. Cervical medullary differentiation is maintained bilaterally. Urina ry bladder diverticulum noted. Urinary bladder is anechoic. Both ureteral jets are not identified. IMPRESSION: 1. Moderate left and mild right hydronephrosis. 2. Urinary bladder diverticulum.
[2023-01-26] MEDS: TAMSULOSIN 0.4 MG CAP.ER.24H PO SCH (18:32)
[2023-01-26] MEDS: HEPARIN SODIUM,PORCINE/PF 5,000 UNIT/0.5 ML SYRINGE SQ SCH (21:05)
[2023-01-26] MEDS: LATANOPROST 0.005% OPHTH DROPS 2.5 ML BTL BOTH EYES SCH (21:05)
[2023-01-27] MEDS: methylPREDNISolone SOD SUCCI 125 MG/2 ML VIAL IV SCH ×3 (06:12→17:46)
[2023-01-27] MEDS: PANTOPRAZOLE 40 MG TABLET PO SCH (06:12)
[2023-01-27] MEDS: ATORVASTATIN 20 MG TAB PO SCH (07:50)
[2023-01-27] MEDS: amLODIPine 2.5 MG TAB PO SCH ×2 (07:50→20:17)
[2023-01-27] MEDS: HEPARIN SODIUM,PORCINE/PF 5,000 UNIT/0.5 ML SYRINGE SQ SCH ×2 (07:50→20:17)
[2023-01-27] MEDS: CITALOPRAM HYDROBROMIDE 20 MG TAB PO SCH (07:50)
[2023-01-27] MEDS: IPRATROPIUM-ALBUTEROL 3 ML NEB INHALATION SCH ×4 (08:18→19:40)
[2023-01-27] MEDS: BUDESONIDE 0.5 MG/2 ML NEBU INHALATION SCH ×2 (08:18→19:40)
[2023-01-27] MEDS: FORMOTEROL FUMARATE 20 MCG/2 ML NEBU INHALATION SCH ×2 (08:18→19:40)
--- NOTE | 2023-01-27 11:15 | P.PN ---
Subjective Patient is seen for follow-up for acute kidney injury. He also has underlying chronic kidney disease NKF stage IIIB with baseline creatinine around 1.3-1.8 mg/dL. Currently being treated for acute exacerbation of COPD. Serum creatinine increased to 2.0 from 1.4 on initial admission. Blood pressure has not been low. Started on gentle IV hydration yesterday No urine retention was noted yesterday however ultrasound shows bilateral hydronephrosis. Objective - Vital Signs Vital signs: Vital Signs Temp 97.5 F L 01/27/23 06:53 Pulse 92 01/27/23 08:41 Resp 19 01/27/23 06:53 BP 170/77 01/27/23 06:53 Pulse Ox 98 01/27/23 08:18 FiO2 40 01/23/23 11:43 Intake & Output 01/26/23 01/27/23 01/27/23 18:59 06:59 18:59 Intake Total 1080 118 Balance 1080 118 Weight 57.5 kg Intake: Oral 1080 118 Other: Voiding Method Toilet Toilet # Voids 4 3 - Exam Patient is awake, comfortable, no acute distress Patient is very hard of hearing Examination of the heart S1 and S2 Examination of the lungs bilateral breath sounds are heard, occasional wheezing Abdomen is soft nontender Examination of lower extremities shows no 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 Patient is very hard of hearing. - Labs CBC & Chem 7: 01/26/23 06:10 01/26/23 16:14 Labs: Abnormal Lab Results - Last 24 Hours (Table) 01/26/23 Range/Units 16:14 Potassium 5.4 H (3.5-5.1) mmol/L Assessment and Plan Assessment: 1. Acute kidney injury, nonoliguric ATN. Worsened with anemia. Also component of obstructive uropathy with ultrasound showing bilateral hydronephrosis. No urine retention noted on bladder scan yesterday. No nephrotoxic agents on board. UA is still pending 2. Hyperkalemia associated with acute kidney injury rule out obstructive uropathy 3. History of bladder cancer 4. Anemia rule out iron deficiency 5. Acute hypoxic respiratory failure secondary to COPD exacerbation 6. Acute COPD exacerbation maintained on steroids 7. Chronic kidney disease NKF stage IIIB to 4 with baseline creatinine about 1.8-1.2 mg/dL in April 2022 and serum creatinine around 0.3 in April 2019 Plan: Consult urology Continue with IV fluids Check labs today Continue with Flomax Repeat labs in a.m.
--- NOTE | 2023-01-27 11:22 | P.GSCN ---
History of Present Illness Consult date: 01/27/23 Reason for Consult: Bilateral hydronephrosis History of present illness: This is an 87-year-old male with history of bladder cancer follows up with Dr. Su. Admitted to the hospital with COPD exacerbation. Urology is consulted for hydronephrosis. Ultrasound was obtained for acute kidney injury for creatinine of 2 from a baseline of 1.5. Which showed evidence of bilateral hydronephrosis. Denies any gross hematuria, flank pain or dysuria or any difficulty voiding. Patient is very hard of hearing vessel limited history could be obtained. His postvoid residual was checked and it was 30 mL. Review of Systems - Constitutional Denies fever, Denies weight loss - Cardiovascular Denies chest pain, Denies shortness of breath - Respiratory Reports cough, Reports dyspnea - Gastrointestinal Reports as per HPI - Genitourinary Denies dysuria, Denies hematuria - Neurological Denies headaches, Denies syncope Past Medical History Past Medical History: Cancer, Chest Pain / Angina, COPD, Deep Vein Thrombosis (DVT), Eye Disorder, Hearing Disorder / Deafness, Hyperlipidemia, Hypertension, Osteoarthritis (OA), Pneumonia, Prostate Disorder, Renal Disease Additional Past Medical History / Comment(s): Severe COPD with an FEV1 of 33% of predicted, chronic hypoxic respiratory failure, recurrent hospitalization for COPD exacerbation, stenotrophomonas tracheal bronchitis - HAD PFT 03/04/18. Bladder Cancer w/ prev surgery. RLE DVT. BPH. Chronic Back Pain. VARICOSE VEINS. O2 2L NC. ACUTE RENAL FAILURE 09/2017 R/T DEHYDRATION/DEPRESSION, PER . History of Any Multi-Drug Resistant Organisms: None Reported Past Surgical History: Bladder Surgery, Hernia Repair, Tonsillectomy Additional Past Surgical History / Comment(s): Bladder CA Surgery, Vasectomy. BRONCHIAL WASHING. EXC CATARACTS CARLOS., Past Anesthesia/Blood Transfusion Reactions: No Reported Reaction Past Psychological History: Anxiety, Depression Additional Psychological History / Comment(s): Pt resides with his spouse in a single level home that has 4 [address]s [address]..[address] drives. He has a nebulizer, 02 uses prn. He has [facility] home care. Smoking Status: Former smoker Past Alcohol Use History: None Reported Additional Past Alcohol Use History / Comment(s): Pt started smoking in 1955 and quit in 1999. At one time smoking 2-3 ppd. Past Drug Use History: None Reported - Past Family History Father Family Medical History: Cancer Additional Family Medical History / Comment(s): Father had scoliosis. Father of lung cancer Mother History Unknown: Yes Family Medical History: CVA/TIA Additional Family Medical History / Comment(s): Mother . Unknown history Medications and Allergies Home Medications Medication Instructions Recorded Confirmed Type Simvastatin [Zocor] 40 mg PO DAILY 07/10/15 01/23/23 History Citalopram Hydrobromide [CeleXA] 20 mg PO DAILY #30 tab 09/18/17 01/23/23 Rx ALPRAZolam [Xanax] 0.5 mg PO TID PRN 03/28/18 01/23/23 History Latanoprost/Pf [Latanoprost 0.005% 1 drop BOTH EYES HS 04/20/22 01/23/23 History Eye Drop] Tamsulosin [Flomax] 0.4 mg PO HS #30 cap 04/25/22 01/23/23 Rx amLODIPine [Norvasc] 2.5 mg PO BID #60 tab 04/25/22 01/23/23 Rx predniSONE 5 mg PO DAILY #0 04/25/22 01/23/23 Rx Budesonide [Pulmicort] 0.5 mg INHALATION RT-BID 01/23/23 01/23/23 History Formoterol Fumarate [Perforomist] 20 mcg INHALATION RT-BID 01/23/23 01/23/23 History Allergies Allergy/AdvReac Type Severity Reaction Status Date / Time No Known Allergies Allergy Verified 01/23/23 14:09 Surgical - Exam Vital Signs Temp Pulse Resp BP Pulse Ox 98.7 F 93 22 194/94 100 01/23/23 11:13 01/23/23 11:13 01/23/23 11:13 01/23/23 11:13 01/23/23 11:13 - General no distress, no pain - Eyes normal ocular movement, no pale - ENT normal nares, normal mucosa - Respiratory normal expansion, normal respiratory effort - Abdomen Abdomen: soft, non tender, no distended Results - Labs 01/26/23 06:10 01/26/23 16:14 Abnormal Lab Results - Last 24 Hours (Table) 01/26/23 Range/Units 16:14 Potassium 5.4 H (3.5-5.1) mmol/L Diabetes panel 01/26/23 Range/Units 16:14 Potassium 5.4 H (3.5-5.1) mmol/L Pituitary panel 01/26/23 Range/Units 16:14 Potassium 5.4 H (3.5-5.1) mmol/L Adrenal panel 01/26/23 Range/Units 16:14 Potassium 5.4 H (3.5-5.1) mmol/L Assessment and Plan Assessment: 87-year-old male history of bladder cancer, no evidence of recent recurrence. No voiding dysfunction. Underwent a renal ultrasound for creatinine of 2.0 from a baseline of 1.5 which showed evidence of bilateral hydronephrosis. Postvoid residuals 30 mL's (1) Hydronephrosis Narrative/Plan: -CT abdomen and pelvis -Continue to trend creat Current Visit: Yes Status: Acute Code(s): N13.30 - UNSPECIFIED HYDRONEPHROSIS SNOMED Code(s): 39987477
[2023-01-27] MEDS: SODIUM CHLORIDE 0.9% 1,000 ML IV SCH (12:18)
--- NOTE | 2023-01-27 12:42 | P.PN ---
Subjective Progress Note Date: 01/27/23 Principal diagnosis: Acute exacerbation of COPD I am seeing this patient in new consultation today 01/24/2023 for suspected acute COPD exacerbation. Patient is an 87-year-old white male with past medical history significant for severe oxygen dependent COPD, pulmonary hypertension, hypertension, hyperlipidemia, DVT, bladder cancer. Patient does follow up in the office with Dr. Chavarria, for management of his severe COPD with FEV1 41% of predicted. Patient does utilize 2 L/m nasal cannula 28/01. Patient's primary care provider is Dr. Elizabeth. Patient is fairly hard of hearing, making it difficult to communicate. Apparently, the patient has had some progressive shortness of breath and cough for the last several weeks. He presented to the emergency room via EMS yesterday afternoon. He was found to be in some acute respiratory distress. He was also hypertensive and tachycardic. Chest x-ray on arrival showed no acute cardiopulmonary process. Patient is currently sitting up in bed, on 2 L/m nasal cannula, in no acute distress. He is currently on a combination of DuoNeb's, desonide, formoterol, and IV Solu-Medrol. He seems fairly comfortable, and is already showing improvement in his respiratory status. Denies any fever, chills, myalgias, cough, hemoptysis. Denies any chest pain, heart palpitations, lower extremity edema, orthopnea. CBC on arrival showed a WBC count of 7.3, hemoglobin 9.2, hematocrit 32.6, platelets 383. BMP on arrival shows sodium 136, potassium 5.4, chloride 103, serum bicarb 24, BUN 50, creatinine 1.46, glucose 104. NT proBNP was mildly elevated at 1150, but not significant for age. Troponin was 0.025. Overall, the patient's condition seems to be improving nicely. The patient is seen today 01/25/2023 in follow-up on the regular medical floor. He is currently sitting up in bed. Awake and alert. Still with wheezing and b ronchospasm. Maintaining good O2 saturations up to 100% on 2 L/m per nasal cannula. Continued on DuoNeb inhalations, Perforomist and Pulmicort inhalations, Solu-Medrol. Antibiotics in the form of azithromycin. Barboza virus not detected. The patient is seen today 01/26/2023 in follow-up on the regular medical floor. He is awake and alert in no acute distress. Maintaining O2 saturations in the 90s on 2 L/m per nasal cannula. He is still having significant cough and congestion and wheezing. Continued on DuoNeb inhalations, Pulmicort and perforomist inhalations, IV Solu-Medrol. Completed azithromycin. White count 10.4. Hemoglobin 9.0. Platelets 6:15. Sodium 138. Potassium 6.1. BUN 70. Creatinine 1.9. Glucose 123. Reevaluated today on 01/27/23, patient is basically about the same, he states that his breathing a bit easier but nonetheless on physical examination continues to have significant rhonchi and wheezes bilaterally, patient is not showing much improvement in spite of maximal bronchodilators and IV steroids as well as antibiotics. He is being followed by nephrology for his acute kidney injury. Potassium today is 5.4. BUN is 70.8 creatinine is 1.19 Objective - Vital Signs Vital signs: Vital Signs Temp 97.5 F L 01/27/23 06:53 Pulse 100 01/27/23 11:52 Resp 19 01/27/23 06:53 BP 170/77 01/27/23 06:53 Pulse Ox 98 01/27/23 08:18 FiO2 40 01/23/23 11:43 Intake & Output 01/26/23 01/27/23 01/27/23 18:59 06:59 18:59 Intake Total 1080 118 Balance 1080 118 Weight 57.5 kg Intake: Oral 1080 118 Other: Voiding Method Toilet Toilet # Voids 4 3 - Exam Physical Exam: Revealed 87-year-old white male in no distress on few liters nasal cannula. Head: Atraumatic normocephalic. HEENT:[Neck is supple.] [No neck masses.] [No thyromegaly.] [No JVD.] Chest: [Diffuse rhonchi and wheezes noted bilaterally. Cardiac Exam: [Normal S1 and S2, no S3 gallop, no murmur.] Abdomen: [Soft, nontender, no megaly, no rebound, no guarding, normal bowel sounds.] Extremities: [No clubbing, no edema, no cyanosis.] Neurological Exam: [No focal neurologic deficit.] Psychiatric: Normal mood affect and normal mental status examination. Skin: No rashes. - Labs CBC & Chem 7: 07/22/23 06:10 01/26/23 16:14 Labs: Abnormal Lab Results - Last 24 Hours (Table) 01/26/23 Range/Units 16:14 Potassium 5.4 H (3.5-5.1) mmol/L Assessment and Plan Assessment: Impression: Acute exacerbation of obstructive pulmonary disease. Chest x-ray showed no acute process Chronic hypoxemic respiratory failure, currently on 2 L/m nasal cannula History of pulmonary hypertension Benign essential hypertension Hyperlipidemia Chronic kidney disease stage III Anemia of chronic disease History DVT History of bladder cancer Ex-smoker Recommendation: Continue bronchodilators and steroids Continue intermittent gentle diuresis Continue empiric antibiotics Continue oxygen and titrate accordingly Continue GI and DVT prophylaxis Not ready for discharge planning We will continue to follow Prognosis is definitely poor and guarded Time with Patient: Less than 30
--- NOTE | 2023-01-27 13:05 | CT ---
EXAMINATION TYPE: CT renal stones wo con CT DLP: 389.7 mGycm, Automated exposure control for dose reduction was used. DATE OF EXAM: 01/27/2023 12:31 PM COMPARISON: Renal ultrasound 01/26/2023 CLINICAL INDICATION:Male, 87 years old with history of Hydronephrosis; hydronephrosis TECHNIQUE: Standard CT of the abdomen and pelvis without IV or oral contrast. Lack of IV or oral co ntrast limits evaluation of solid and hollow organ viscera. Coronal and sagittal reformats were perfo rmed. FINDINGS: LOWER CHEST: Centrilobular emphysematous changes. ABDOMEN LIVER: Unremarkable noncontrast appearance GALLBLADDER AND BILE DUCTS: Unremarkable noncontrast appearance PANCREAS: Unremarkable noncontrast appearance SPLEEN: Unremarkable noncontrast appearance ADRENAL GLANDS: Unremarkable noncontrast appearance. KIDNEYS AND URETERS: Mild right and moderate left hydroureteronephrosis. There is cortical thinning o f the left kidney with bilateral perinephric fat stranding. Bilateral renal vascular calcifications. No obstructing calculus identified. PELVIS BLADDER: Mildly distended. Posterior right and right lateral wall urinary bladder diverticulum. REPRODUCTIVE: Coarse calcifications of the prostate gland are identified. Mildly prominent prostate g land. ABDOMEN & PELVIS STOMACH AND BOWEL: Distal colonic diverticulosis without evidence for acute diverticulitis. The appen farzad is within normal limits. Mild colonic stool burden. No evidence of bowel obstruction. PERITONEUM: No evidence of pneumoperitoneum or free fluid. VASCULATURE: Moderate to severe atherosclerotic calcifications are present throughout the abdominal a ran and its branches. No evidence of aortic aneurysm. MUSCULOSKELETAL: No acute osseous abnormalities. Levoscoliotic of the lumbar spine. Mild to moderate multilevel degenerative disc disease of the lumbar spine. LYMPH NODES: No gross evidence for lymphadenopathy. SOFT TISSUE/ABDOMINAL WALL: Small fat filled umbilical hernia. Diffuse anasarca. IMPRESSION: 1. Moderate left and mild right hydroureteronephrosis without obstructing calculus identified. 2. Urinary bladder diverticulum with mildly prominent prostate gland which could represent chronic ou tlet obstruction. Patient may benefit from Swartz catheter placement. 3. Colonic diverticulosis without evidence for acute diverticulitis. 4. COPD changes.
[2023-01-27 13:06] LABS: Appearance,Urine Cloudy (Clear); Bilirubin,Urine Negative (Negative); Blood,Urine Moderate (Negative); Budding Yeast,Urine Many /hpf; Color,Urine Light Yellow; Glucose,Urine (UA) Negative (Negative); Ketones,Urine Negative (Negative); Leukocyte Esterase,Urine Large (Negative); Mucus,Urine Rare /hpf; Nitrite,Urine Negative (Negative); PH, Urine 5.5 (5.0-8.0); Protein,Urine Trace (Negative); RBC,Urine 38 /hpf (0-5); Specific Gravity,Urine 1.017 (1.001-1.035); Urobilinogen,Urine <2.0 mg/dL (<2.0); WBC,Urine 172 /hpf (0-5)
[2023-01-27 14:43] LABS: African American GFR (CKD) 33 (>60 ml/min/1.73 sqM); Anion Gap 12 mmol/L; Blood Urea Nitrogen 73 mg/dL (9-20); Calcium 8.2 mg/dL (8.4-10.2); Carbon Dioxide 25 mmol/L (22-30); Chloride 102 mmol/L (98-107); Glucose 102 mg/dL (74-99); Non-African American GFR(CKD) 29 (>60 ml/min/1.73 sqM); Potassium 5.4 mmol/L (3.5-5.1); Sodium 139 mmol/L (137-145)
--- NOTE | 2023-01-27 14:46 | P.PN ---
Subjective This is an 87-year-old male who presented to the emergency room with shortness of breath which has increased over the last several weeks. Upon arrival of EMS he was in respiratory distress, hypertensive and tachycardic, with a respiratory rate of 30. Patient has a medical history of severe oxygen-dependent COPD, pulmonary hypertension, hypertension, hyperlipidemia, DVT, and bladder cancer. He is maintained on 2 L of oxygen via nasal cannula at home. This morning he is seen sitting up in bed, maintained on 2 L of oxygen. He reports shortness of breath has somewhat improved, but does feel fatigued. 01/26/2023 Patient is still short of breath and tachypnea with mild to moderate respiratory distress. However patient is able to eat and talk with his mild difficulty. Occasional coughing but no chest pain. Patient currently on IV Solu-Medrol and followed closely by pulmonary team. Creatinine at baseline 2.0 and 1.9 however potassium is getting up 5.7 6.1 today. 3 going to give cocktail and consult nephrology team. 01/27/2023 Patient is the same or slightly better, especially when he talks about his breathing he feels little better but still patient has significant wheezing and he is still mildly hypoxic requiring 2-3 L of oxygen via nasal cannula and currently Solu-Medrol 60 Mg Also Patient with Evidence with Acute Kidney Injury and Chronic Kidney Disease with Imaging Showing Bilateral Hydroureteronephrosis, Neurology and Nephrology Team Input Is Appreciated and Patient Has Evidence of Urinary Tract Infection Which May Be Contributing to His Obstructive Uropathy Therefore Started on Ceftriaxone and Follow-Up Urine Culture. Flomax was on board. Continue with I be iv solumedrol 60 mg. Discussed with staff Active Medications Generic Name Dose Route Start Last Admin Trade Name Freq PRN Reason Stop Dose Admin Albuterol/Ipratropium 3 ml 01/23/23 13:44 Ipratropium-Albuterol 3 Ml Neb INHALATION RT-Q2H PRN Shortness Of Breath Or Wheezing Albuterol/Ipratropium 3 ml 01/23/23 16:00 01/27/23 11:41 Ipratropium-Albuterol 3 Ml Neb INHALATION 3 ml RT-QID FLORINA Administration Alprazolam 0.5 mg 01/24/23 08:36 Alprazolam 0.5 Mg Tab PO TID PRN Anxiety Amlodipine Besylate 2.5 mg 01/23/23 21:00 01/27/23 07:50 Amlodipine 2.5 Mg Tab PO 2.5 mg BID FLORINA Administration Atorvastatin Calcium 20 mg 01/24/23 09:00 01/27/23 07:50 Atorvastatin 20 Mg Tab PO 20 mg DAILY FLORINA Administration Budesonide 0.5 mg 01/23/23 18:30 01/27/23 08:18 Budesonide 0.5 Mg/2 Ml Nebu INHALATION 0.5 mg RT-BID FLORINA Administration Citalopram Hydrobromide 20 mg 01/24/23 09:00 01/27/23 07:50 Citalopram Hydrobromide 20 Mg Tab PO 20 mg DAILY FLORINA Administration Formoterol Fumarate 20 mcg 01/23/23 18:30 01/27/23 08:18 Formoterol Fumarate 20 Mcg/2 Ml Nebu INHALATION 20 mcg RT-BID FLORINA Administration Heparin Sodium (Porcine) 5,000 unit 01/26/23 21:00 01/27/23 07:50 Heparin Sodium,Porcine/Pf 5,000 Unit/0.5 Ml Syringe SQ 5,000 unit Q12HR FLORINA Administration Sodium Chloride 1,000 mls @ 50 mls/hr 01/26/23 14:45 01/27/23 12:18 Saline 0.9% IV Not Given .Q20H FLORINA Ceftriaxone Sodium 1 gm/ 50 mls @ 100 mls/hr 01/27/23 14:45 Sodium Chloride IVPB Q24HR [facility] Protocol Latanoprost 1 drops 01/23/23 21:00 01/26/23 21:05 Latanoprost 0.005% Ophth Drops 2.5 Ml Btl BOTH EYES 1 drops HS FLORINA Administration Methylprednisolone Sodium Succinate 60 mg 01/23/23 18:00 01/27/23 12:57 Methylprednisolone Sod Succi 125 Mg/2 Ml Vial IV 60 mg Q6HR FLORINA Administration Naloxone HCl 0.2 mg 01/23/23 13:44 Naloxone 0.4 Mg/Ml 1 Ml Vial IVP Q2M PRN Opioid Reversal Pantoprazole Sodium 40 mg 01/24/23 09:00 01/27/23 06:12 Pantoprazole 40 Mg Tablet PO 40 mg AC-[id number] FLORINA Administration Tamsulosin HCl 0.4 mg 01/23/23 18:30 01/26/23 18:32 Tamsulosin 0.4 Mg Cap.Er.24h PO 0.4 mg PC-SUPPER FLORINA Administration Objective - Vital Signs Vital signs: Vital Signs Temp 97.5 F L 01/27/23 06:53 Pulse 100 01/27/23 11:52 Resp 19 01/27/23 06:53 BP 170/77 01/27/23 06:53 Pulse Ox 98 01/27/23 08:18 FiO2 40 01/23/23 11:43 Intake & Output 01/26/23 01/27/23 01/27/23 18:59 06:59 18:59 Intake Total 1080 118 Balance 1080 118 Weight 57.5 kg Intake: Oral 1080 118 Other: Voiding Method Toilet Toilet # Voids 4 3 - Exam GENERAL: The patient is alert and oriented x3, not in any acute distress. Well developed, well nourished. HEENT: Pupils are round and equally reacting to light. EOMI. No scleral icterus. No conjunctival pallor. Normocephalic, atraumatic. No pharyngeal erythema. No thyromegaly. CARDIOVASCULAR: S1 and S2 present. No murmurs, rubs, or gallops. -PULMONARY: Chest is clear to auscultation, bilateral expiratory wheezing , no crackles. ABDOMEN: Soft, nontender, nondistended, normoactive bowel sounds. No palpable organomegaly. MUSCULOSKELETAL: No joint swelling or deformity. EXTREMITIES: No cyanosis, clubbing, or pedal edema. NEUROLOGICAL: Gross neurological examination did not reveal any focal deficits. SKIN: No rashes. no petechiae. - Labs CBC & Chem 7: 01/26/23 06:10 01/26/23 16:14 Labs: Abnormal Lab Results - Last 24 Hours (Table) 01/26/23 01/27/23 Range/Units 16:14 12:30 Potassium 5.4 H (3.5-5.1) mmol/L Urine Protein Trace H (Negative) Urine Blood Moderate H (Negative) Ur Leukocyte Esterase Large H (Negative) Urine RBC 38 H (0-5) /hpf Urine WBC 172 H (0-5) /hpf Urine Mucus Rare H (None) /hpf Urine Yeast (Budding) Many H (None) /hpf Assessment and Plan Assessment: Acute COPD exacerbation Acute hypoxic respiratory failure Hyperkalemia Acute kidney injury on Chronic kidney disease stage III Bilateral Hydroureteronephrosis, Urinary Tract Infection Obstructive uropathy Normochromic, normocytic anemia Chronic kidney disease stage III Plan: Continue with IV Solu-Medrol Nephrology and urology consult Start ceftriaxone and follow-up urine culture continue with Flomax Labs and medication were reviewed.. Continue same treatment. Continue with symptomatic treatment. Resume home medication. Monitor labs and vitals. DVT and GI prophylaxis. Further recommendations as per clinical course of the patient DVT prophylaxis: Subcutaneous heparin GI Prophylaxis: Ppi Prognosis is guarded
[2023-01-27] MEDS: TAMSULOSIN 0.4 MG CAP.ER.24H PO SCH (17:05)
[2023-01-27] MEDS: LATANOPROST 0.005% OPHTH DROPS 2.5 ML BTL BOTH EYES SCH (20:18)
[2023-01-28] MEDS: methylPREDNISolone SOD SUCCI 125 MG/2 ML VIAL IV SCH ×4 (01:03→17:39)
[2023-01-28] MEDS: SODIUM CHLORIDE 0.9% 1,000 ML IV SCH (05:51)
[2023-01-28] MEDS: PANTOPRAZOLE 40 MG TABLET PO SCH (05:52)
[2023-01-28] MEDS: BUDESONIDE 0.5 MG/2 ML NEBU INHALATION SCH ×2 (08:04→20:01)
[2023-01-28] MEDS: IPRATROPIUM-ALBUTEROL 3 ML NEB INHALATION SCH ×4 (08:04→20:01)
[2023-01-28] MEDS: FORMOTEROL FUMARATE 20 MCG/2 ML NEBU INHALATION SCH ×2 (08:04→20:01)
[2023-01-28 09:24] LABS: HCT 29.3 % (39.6-50.0); HGB 8.6 d/dL (12.0-15.0); MCH 27.6 pg (27.0-32.0); MCHC 29.4 d/dL (32.0-37.0); MCV 93.9 FL (80.0-97.0); Mean Platelet Volume 9.6 FL (9.5-12.2); NRBC Per 100 WBC 0.02 X 10*3/uL (0.00-0.01); Platelet Count 613 X 10*3/uL (140-440); RBC 3.12 X 10*6/uL (4.40-5.60); RDW 17.6 % (11.5-14.5); WBC 7.64 X 10*3/uL (4.50-10.00)
[2023-01-28 09:54] LABS: Basophils # (M) 0 X 10*3/uL (0.00-0.10); Eosinophils # (M) 0 X 10*3/uL (0.04-0.35); Lymphocytes # (M) 0.08 X 10*3/uL (0.90-5.00); Monocytes # (M) 0.38 X 10*3/uL (0.20-1.00); Neutrophils # (M) 7.18 X 10*3/uL (1.80-7.70); Neutrophils % (M) 94 %; Nucleated Red Blood Cells 1 /100 WBCS; Schistocytes 1+
[2023-01-28] MEDS: HEPARIN SODIUM,PORCINE/PF 5,000 UNIT/0.5 ML SYRINGE SQ SCH ×2 (10:34→21:53)
[2023-01-28] MEDS: CITALOPRAM HYDROBROMIDE 20 MG TAB PO SCH (10:35)
[2023-01-28] MEDS: amLODIPine 2.5 MG TAB PO SCH ×2 (10:35→21:53)
[2023-01-28] MEDS: ATORVASTATIN 20 MG TAB PO SCH (10:35)
--- NOTE | 2023-01-28 11:10 | P.PN ---
Subjective Progress Note Date: 01/28/23 I am seeing this patient in new consultation today 01/24/2023 for suspected acute COPD exacerbation. Patient is an 87-year-old white male with past medical history significant for severe oxygen dependent COPD, pulmonary hypertension, hypertension, hyperlipidemia, DVT, bladder cancer. Patient does follow up in the office with Dr. Chavarria, for management of his severe COPD with FEV1 41% of predicted. Patient does utilize 2 L/m nasal cannula 28/01. Patient's primary care provider is Dr. Elizabeth. Patient is fairly hard of hearing, making it difficult to communicate. Apparently, the patient has had some progressive shortness of breath and cough for the last several weeks. He presented to the emergency room via EMS yesterday afternoon. He was found to be in some acute respiratory distress. He was also hypertensive and tachycardic. Chest x-ray on arrival showed no acute cardiopulmonary process. Patient is currently sitting up in bed, on 2 L/m nasal cannula, in no acute distress. He is currently on a combination of DuoNeb's, desonide, formoterol, and IV Solu-Medrol. He seems fairly comfortable, and is already showing improvement in his respiratory status. Denies any fever, chills, myalgias, cough, hemoptysis. Denies any chest pain, heart palpitations, lower extremity edema, orthopnea. CBC on arrival showed a WBC count of 7.3, hemoglobin 9.2, hematocrit 32.6, platelets 383. BMP on arrival shows sodium 136, potassium 5.4, chloride 103, serum bicarb 24, BUN 50, creatinine 1.46, glucose 104. NT proBNP was mildly elevated at 1150, but not significant for age. Troponin was 0.025. Overall, the patient's condition seems to be improving nicely. The patient is seen today 01/25/2023 in follow-up on the regular medical floor. He is currently sitting up in bed. Awake and alert. Still with wheezing and bronchospasm. Maintaining good O2 saturations up to 100% on 2 L/m per nasal cannula. Continued on DuoNeb inhalations, Perforomist and Pulmicort inhalations, Solu-Medrol. Antibiotics in the form of azithromycin. Barboza virus not detected. The patient is seen today 01/26/2023 in follow-up on the regular medical floor. He is awake and alert in no acute distress. Maintaining O2 saturations in the 90s on 2 L/m per nasal cannula. He is still having significant cough and congestion and wheezing. Continued on DuoNeb inhalations, Pulmicort and perforomist inhalations, IV Solu-Medrol. Completed azithromycin. White count 10.4. Hemoglobin 9.0. Platelets 6:15. Sodium 138. Potassium 6.1. BUN 70. Creatinine 1.9. Glucose 123. Reevaluated today on 01/27/23, patient is basically about the same, he states that his breathing a bit easier but nonetheless on physical examination continues to have significant rhonchi and wheezes bilaterally, patient is not showing much improvement in spite of maximal bronchodilators and IV steroids as well as antibiotics. He is being followed by nephrology for his acute kidney injury. Potassium today is 5.4. BUN is 70.8 creatinine is 1.19 The patient is seen today 01/28/2023 in follow-up on the regular medical floor. He is awake and alert in no acute distress. Sitting up in bed. His been slow to progress. Still with a loose cough. Normal saline at 50 ML's per hour. Procalcitonin was 0.10. He is continued on ceftriaxone. Suspected urinary tract infection. White count 7.6. Hemoglobin 8.6. Platelets 613. He is continued on DuoNeb inhalations, Pulmicort and perform as inhalations, Solu- Medrol. Maintaining O2 saturations in the 90s on 2 L/m per nasal cannula. Heparin for DVT prophylaxis. Objective - Vital Signs Vital signs: Vital Signs Temp 97.6 F 01/28/23 07:26 Pulse 92 01/28/23 08:28 Resp 12 01/28/23 07:26 BP 158/81 01/28/23 07:26 Pulse Ox 100 01/28/23 08:05 FiO2 40 01/23/23 11:43 Intake & Output 01/27/23 01/28/23 01/28/23 18:59 06:59 18:59 Intake Total 118 Balance 118 Weight 59 kg Intake: Oral 118 Other: Voiding Method Toilet Toilet Toilet # Voids 2 1 - Exam GENERAL EXAM: Alert, pleasant 87-year-old male, 2 L nasal cannula, comfortable in no apparent distress. HEAD: Normocephalic and atraumatic EYES: Normal reaction of pupils, equal size. NOSE: Clear with pink turbinates. THROAT: No erythema or exudates. NECK: No masses, no JVD. CHEST: No chest wall deformity. LUNGS: Equal air entry with right lower lobe inspiratory crackles. Bilateral wheeze. CVS: S1 and S2 normal with no audible murmur, regular rhythm. No extra heart sounds ABDOMEN: No hepatosplenomegaly, active bowel sounds, no guarding or rigidity. SPINE: No scoliosis or deformity SKIN: No rashes CENTRAL NERVOUS SYSTEM: No focal deficits, tone is normal in all 4 extremities. EXTREMITIES: There is no peripheral edema, clubbing, or cyanosis. Peripheral pulses are intact. - Labs CBC & Chem 7: 01/28/23 06:37 01/27/23 14:07 Labs: Abnormal Lab Results - Last 24 Hours (Table) 01/27/23 01/27/23 01/28/23 Range/Units 12:30 14:07 06:37 RBC 3.12 L (4.40-5.60) X 10*6/uL Hgb 8.6 L (12.0-15.0) d/dL Hct 29.3 L (39.6-50.0) % MCHC 29.4 L (32.0-37.0) d/dL RDW 17.6 H (11.5-14.5) % Plt Count 613 H (140-440) X 10*3/uL Lymphocytes # (Manual) 0.08 L (0.90-5.00) X 10*3/uL Eosinophils # (Manual) 0 L (0.04-0.35) X 10*3/uL NRBC/100 WBC Diff 0.02 H (0.00-0.01) X 10*3/uL Schistocytes 1+ A Potassium 5.4 H (3.5-5.1) mmol/L BUN 73 H (9-20) mg/dL Creatinine 2.02 H (0.66-1.25) mg/dL Glucose 102 H (74-99) mg/dL Calcium 8.2 L (8.4-10.2) mg/dL Urine Protein Trace H (Negative) Urine Blood Moderate H (Negative) Ur Leukocyte Esterase Large H (Negative) Urine RBC 38 H (0-5) /hpf Urine WBC 172 H (0-5) /hpf Urine Mucus Rare H (None) /hpf Urine Yeast (Budding) Many H (None) /hpf Assessment and Plan Assessment: Acute exacerbation of obstructive pulmonary disease. Chest x-ray showed no acut e process Chronic hypoxemic respiratory failure, currently on 2 L/m nasal cannula History of bladder cancer. Renal computed tomography scan revealed moderate left and mild right hydroureteronephrosis without obstructing calculus identified. Urinary bladder diverticulum with mildly prominent prostate gland which could represent chronic outlet obstruction. Urinary tract infection suspected, culture pending, currently on ceftriaxone Colonic diverticulosis without evidence of acute diverticulitis History of pulmonary hypertension Benign essential hypertension Hyperlipidemia Chronic kidney disease stage III Anemia of chronic disease History DVT Ex-smoker Plan: The patient was seen and evaluated Medications and labs are reviewed Continued on bronchodilators, steroids Currently on ceftriaxone Increase his activity as tolerated We will continue to follow I have personally seen and examined the patient, performed the documentation and the assessment and plan as written. Number of minutes spent on the visit: 10.
--- NOTE | 2023-01-28 13:26 | P.PN ---
Subjective This is an 87-year-old male who presented to the emergency room with shortness of breath which has increased over the last several weeks. Upon arrival of EMS he was in respiratory distress, hypertensive and tachycardic, with a respiratory rate of 30. Patient has a medical history of severe oxygen-dependent COPD, pulmonary hypertension, hypertension, hyperlipidemia, DVT, and bladder cancer. He is maintained on 2 L of oxygen via nasal cannula at home. This morning he is seen sitting up in bed, maintained on 2 L of oxygen. He reports shortness of breath has somewhat improved, but does feel fatigued. 01/26/2023 Patient is still short of breath and tachypnea with mild to moderate respiratory distress. However patient is able to eat and talk with his mild difficulty. Occasional coughing but no chest pain. Patient currently on IV Solu-Medrol and followed closely by pulmonary team. Creatinine at baseline 2.0 and 1.9 however potassium is getting up 5.7 6.1 today. 3 going to give cocktail and consult nephrology team. 01/27/2023 Patient is the same or slightly better, especially when he talks about his breathing he feels little better but still patient has significant wheezing and he is still mildly hypoxic requiring 2-3 L of oxygen via nasal cannula and currently Solu-Medrol 60 Mg Also Patient with Evidence with Acute Kidney Injury and Chronic Kidney Disease with Imaging Showing Bilateral Hydroureteronephrosis, Neurology and Nephrology Team Input Is Appreciated and Patient Has Evidence of Urinary Tract Infection Which May Be Contributing to His Obstructive Uropathy Therefore Started on Ceftriaxone and Follow-Up Urine Culture. Flomax was on board. Continue with I be iv solumedrol 60 mg. Discussed with staff 01/28/2023 Patient is improving slowly and gradually, his breathing slightly better, he is saturating 100% with oxygen via nasal cannula however is still somewhat tachypneic with mild respiratory distress Is currently kept on salmeterol with pulmonary follow closely. Labs reviewed and stable. Potassium 5.4. Urology and nephrology team on the case for acute kidney injury on chronic kidney disease with mild hyperkalemia. Patient with history of urinary bladder cancers and evidence of bilateral hydronephrosis. Also patient on ceftriaxone for possible urinary tract infection. Urine culture is pending.. No Swartz currently. There is no evidence of urinary retention and bladder scan. PT evaluation Objective - Vital Signs Vital signs: Vital Signs Temp 97.6 F 01/28/23 07:26 Pulse 90 01/28/23 11:46 Resp 12 01/28/23 07:26 BP 158/81 01/28/23 07:26 Pulse Ox 100 01/28/23 08:05 FiO2 40 01/23/23 11:43 Intake & Output 01/27/23 01/28/23 01/28/23 18:59 06:59 18:59 Intake Total 118 100 Balance 118 100 Weight 59 kg Intake: Intake, IV Titration 100 Amount cefTRIAXone 1 gm In 100 Sodium Chloride 0.9% 50 ml @ 100 mls/hr IVPB Q24HR [facility] Rx#:[id number] Oral 118 Other: Voiding Method Toilet Toilet Toilet # Voids 2 1 2 - Exam GENERAL: The patient is alert and oriented x3, not in any acute distress. Well developed, well nourished. HEENT: Pupils are round and equally reacting to light. EOMI. No scleral icterus. No conjunctival pallor. Normocephalic, atraumatic. No pharyngeal erythema. No thyromegaly. CARDIOVASCULAR: S1 and S2 present. No murmurs, rubs, or gallops. -PULMONARY: Chest is clear to auscultation, bilateral expiratory wheezing , no crackles. ABDOMEN: Soft, nontender, nondistended, normoactive bowel sounds. No palpable organomegaly. MUSCULOSKELETAL: No joint swelling or deformity. EXTREMITIES: No cyanosis, clubbing, or pedal edema. NEUROLOGICAL: Gross neurological examination did not reveal any focal deficits. SKIN: No rashes. no petechiae. - Labs CBC & Chem 7: 01/28/23 06:37 01/27/23 14:07 Labs: Abnormal Lab Results - Last 24 Hours (Table) 01/27/23 01/28/23 Range/Units 14:07 06:37 RBC 3.12 L (4.40-5.60) X 10*6/uL Hgb 8.6 L (12.0-15.0) d/dL Hct 29.3 L (39.6-50.0) % MCHC 29.4 L (32.0-37.0) d/dL RDW 17.6 H (11.5-14.5) % Plt Count 613 H (140-440) X 10*3/uL Lymphocytes # (Manual) 0.08 L (0.90-5.00) X 10*3/uL Eosinophils # (Manual) 0 L (0.04-0.35) X 10*3/uL NRBC/100 WBC Diff 0.02 H (0.00-0.01) X 10*3/uL Schistocytes 1+ A Potassium 5.4 H (3.5-5.1) mmol/L BUN 73 H (9-20) mg/dL Creatinine 2.02 H (0.66-1.25) mg/dL Glucose 102 H (74-99) mg/dL Calcium 8.2 L (8.4-10.2) mg/dL Assessment and Plan Assessment: Acute COPD exacerbation Acute hypoxic respiratory failure Hyperkalemia Acute kidney injury on Chronic kidney disease stage III Bilateral Hydroureteronephrosis, Urinary Tract Infection Obstructive uropathy Normochromic, normocytic anemia Chronic kidney disease stage III Plan: Continue with IV Solu-Medrol Nephrology and urology consult Start ceftriaxone and follow-up urine culture continue with Flomax Labs and medication were reviewed.. Continue same treatment. Continue with symptomatic treatment. Resume home medication. Monitor labs and vitals. DVT and GI prophylaxis. Further recommendations as per clinical course of the patient DVT prophylaxis: Subcutaneous heparin GI Prophylaxis: Ppi Prognosis is guarded
--- NOTE | 2023-01-28 14:06 | P.PN ---
Subjective Patient is seen in follow-up for acute kidney injury on chronic kidney disease. Renal function fairly stable as of yesterday. Has been voiding. On 2 L Hard of hearing. Vital signs are stable. General: No acute distress. HEENT: Head exam is unremarkable. On his cannula. LUNGS: Scattered rhonchi. HEART: Rate and Rhythm are regular. ABDOMEN: Nontender. EXTREMITITES: No edema. Objective - Vital Signs Vital signs: Vital Signs Temp 97.6 F 01/28/23 07:26 Pulse 90 01/28/23 11:46 Resp 12 01/28/23 07:26 BP 158/81 01/28/23 07:26 Pulse Ox 100 01/28/23 08:05 FiO2 40 01/23/23 11:43 Intake & Output 01/27/23 01/28/23 01/28/23 18:59 06:59 18:59 Intake Total 118 100 Balance 118 100 Weight 59 kg Intake: Intake, IV Titration 100 Amount cefTRIAXone 1 gm In 100 Sodium Chloride 0.9% 50 ml @ 100 mls/hr IVPB Q24HR [facility] Rx#:[id number] Oral 118 Other: Voiding Method Toilet Toilet Toilet # Voids 2 1 2 - Labs CBC & Chem 7: 01/28/23 06:37 01/27/23 14:07 Labs: Abnormal Lab Results - Last 24 Hours (Table) 01/27/23 01/28/23 Range/Units 14:07 06:37 RBC 3.12 L (4.40-5.60) X 10*6/uL Hgb 8.6 L (12.0-15.0) d/dL Hct 29.3 L (39.6-50.0) % MCHC 29.4 L (32.0-37.0) d/dL RDW 17.6 H (11.5-14.5) % Plt Count 613 H (140-440) X 10*3/uL Lymphocytes # (Manual) 0.08 L (0.90-5.00) X 10*3/uL Eosinophils # (Manual) 0 L (0.04-0.35) X 10*3/uL NRBC/100 WBC Diff 0.02 H (0.00-0.01) X 10*3/uL Schistocytes 1+ A Potassium 5.4 H (3.5-5.1) mmol/L BUN 73 H (9-20) mg/dL Creatinine 2.02 H (0.66-1.25) mg/dL Glucose 102 H (74-99) mg/dL Calcium 8.2 L (8.4-10.2) mg/dL Assessment and Plan Plan: Assessment: 1. Acute kidney injury secondary to ATN and component of obstructive uropathy. UA suggestive of UTI. Trace protein. Creatinine 2.02 yesterday. 2. Bilateral hydronephrosis. Urology following. 3. History of bladder cancer. 4. Hyperkalemia secondary to acute kidney injury and obstructive uropathy. Better. 5. 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 6. Hypertension with chronic kidney disease. Stable. Exacerbated by steroids. Plan: Maintain gentle IV hydration. Encouraged oral intake. Avoid nephrotoxins. Continue to monitor renal function and urine output. Check potassium level today.
[2023-01-28 15:06] VITALS: BMI 18.1
[2023-01-28] MEDS: TAMSULOSIN 0.4 MG CAP.ER.24H PO SCH (17:34)
[2023-01-28] MEDS ORDERED: SODIUM ZIRCONIUM CYCLOSILICATE 10 GM PACKET PO ONE (18:11)
[2023-01-28] MEDS: LATANOPROST 0.005% OPHTH DROPS 2.5 ML BTL BOTH EYES SCH (21:52)
[2023-01-29] MEDS: methylPREDNISolone SOD SUCCI 125 MG/2 ML VIAL IV SCH ×2 (00:06→05:32)
[2023-01-29] MEDS: SODIUM CHLORIDE 0.9% 1,000 ML IV SCH (00:09)
--- NOTE | 2023-01-29 06:26 | P.PN ---
Subjective Progress Note Date: 01/28/23 Principal diagnosis: Left hydronephrosis The patient denies hematuria and flank pain. Objective - Vital Signs Vital signs: Vital Signs Temp 97.6 F 01/28/23 07:26 Pulse 90 01/28/23 11:46 Resp 12 01/28/23 07:26 BP 158/81 01/28/23 07:26 Pulse Ox 100 01/28/23 08:05 FiO2 40 01/23/23 11:43 Intake & Output 01/27/23 01/28/23 01/28/23 18:59 06:59 18:59 Intake Total 118 100 Balance 118 100 Weight 59 kg Intake: Intake, IV Titration 100 Amount cefTRIAXone 1 gm In 100 Sodium Chloride 0.9% 50 ml @ 100 mls/hr IVPB Q24HR [facility] Rx#:[id number] Oral 118 Other: Voiding Method Toilet Toilet Toilet # Voids 2 1 2 - Constitutional General appearance: Present: average body habitus, cooperative, no acute distress - Psychiatric Psychiatric: Present: A&O x's 3 - Labs CBC & Chem 7: 01/28/23 06:37 01/28/23 14:10 Labs: Abnormal Lab Results - Last 24 Hours (Table) 01/27/23 01/28/23 Range/Units 14:07 06:37 RBC 3.12 L (4.40-5.60) X 10*6/uL Hgb 8.6 L (12.0-15.0) d/dL Hct 29.3 L (39.6-50.0) % MCHC 29.4 L (32.0-37.0) d/dL RDW 17.6 H (11.5-14.5) % Plt Count 613 H (140-440) X 10*3/uL Lymphocytes # (Manual) 0.08 L (0.90-5.00) X 10*3/uL Eosinophils # (Manual) 0 L (0.04-0.35) X 10*3/uL NRBC/100 WBC Diff 0.02 H (0.00-0.01) X 10*3/uL Schistocytes 1+ A Potassium 5.4 H (3.5-5.1) mmol/L BUN 73 H (9-20) mg/dL Creatinine 2.02 H (0.66-1.25) mg/dL Glucose 102 H (74-99) mg/dL Calcium 8.2 L (8.4-10.2) mg/dL - Imaging and Cardiology CT scan - abdomen: report reviewed, image reviewed Assessment and Plan Assessment: CT scan shows bilateral hydroureteronephrosis, moderate on the right and marked on the left with renal parenchymal thinning (on the left). The left ureter is markedly dilated and tortuous. The ureters are dilated down to the bladder. 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 Su. Recent cystoscopy showed no tumors. He is receiving monthly intravesical installation of gemcitabine. (1) Malignant neoplasm of bladder, unspecified Current Visit: Yes Status: Acute Code(s): C67.9 - MALIGNANT NEOPLASM OF BLADDER, UNSPECIFIED SNOMED Code(s): 227894921 (2) Hydronephrosis Current Visit: Yes Status: Acute Code(s): N13.30 - UNSPECIFIED HYDRONEPHROSIS SNOMED Code(s): 01110317 Plan: The patient has hydroureteronephrosis, likely due to his known bladder cancer. It would be my recommendation he undergo cystoscopy, transurethral resection of the bladder trigone with attempted stent placement. However, this will require general anesthesia or spinal anesthesia. Alternatively, nephrostomy tubes could be placed to provide renal drainage and optimize kidney function, but this would not address the primary cause of obstruction. I intend to discuss this in more detail with both the patient and Dr. Su.
[2023-01-29] MEDS: PANTOPRAZOLE 40 MG TABLET PO SCH (06:40)
[2023-01-29] MEDS: IPRATROPIUM-ALBUTEROL 3 ML NEB INHALATION SCH ×4 (08:21→20:46)
[2023-01-29] MEDS: BUDESONIDE 0.5 MG/2 ML NEBU INHALATION SCH ×2 (08:21→20:46)
[2023-01-29] MEDS: FORMOTEROL FUMARATE 20 MCG/2 ML NEBU INHALATION SCH ×2 (08:21→20:46)
[2023-01-29 08:28] LABS: BUN/Creat Ratio 38.19 Ratio (12.00-20.00); Blood Urea Nitrogen 61.1 mg/dL (9.0-27.0); Calcium 7.9 mg/dL (8.7-10.3); Carbon Dioxide 26.2 mmol/L (21.6-31.8); Chloride 108 mmol/L (96-109); Glucose 116 mg/dL (70-110); Magnesium 2.4 mg/dL (1.5-2.4); Potassium 5.5 mmol/L (3.5-5.5); Sodium 143 mmol/L (135-145)
[2023-01-29] MEDS: CITALOPRAM HYDROBROMIDE 20 MG TAB PO SCH (08:52)
[2023-01-29] MEDS: ATORVASTATIN 20 MG TAB PO SCH (08:52)
[2023-01-29] MEDS: amLODIPine 2.5 MG TAB PO SCH ×2 (08:52→21:29)
[2023-01-29] MEDS: HEPARIN SODIUM,PORCINE/PF 5,000 UNIT/0.5 ML SYRINGE SQ SCH ×2 (08:52→21:29)
--- NOTE | 2023-01-29 09:42 | P.PN ---
Subjective Progress Note Date: 01/29/23 I am seeing this patient in new consultation today 01/24/2023 for suspected acute COPD exacerbation. Patient is an 87-year-old white male with past medical history significant for severe oxygen dependent COPD, pulmonary hypertension, hypertension, hyperlipidemia, DVT, bladder cancer. Patient does follow up in the office with Dr. Chavarria, for management of his severe COPD with FEV1 41% of predicted. Patient does utilize 2 L/m nasal cannula 28/01. Patient's primary care provider is Dr. Elizabeth. Patient is fairly hard of hearing, making it difficult to communicate. Apparently, the patient has had some progressive shortness of breath and cough for the last several weeks. He presented to the emergency room via EMS yesterday afternoon. He was found to be in some acute respiratory distress. He was also hypertensive and tachycardic. Chest x-ray on arrival showed no acute cardiopulmonary process. Patient is currently sitting up in bed, on 2 L/m nasal cannula, in no acute distress. He is currently on a combination of DuoNeb's, desonide, formoterol, and IV Solu-Medrol. He seems fairly comfortable, and is already showing improvement in his respiratory status. Denies any fever, chills, myalgias, cough, hemoptysis. Denies any chest pain, heart palpitations, lower extremity edema, orthopnea. CBC on arrival showed a WBC count of 7.3, hemoglobin 9.2, hematocrit 32.6, platelets 383. BMP on arrival shows sodium 136, potassium 5.4, chloride 103, serum bicarb 24, BUN 50, creatinine 1.46, glucose 104. NT proBNP was mildly elevated at 1150, but not significant for age. Troponin was 0.025. Overall, the patient's condition seems to be improving nicely. The patient is seen today 01/25/2023 in follow-up on the regular medical floor. He is currently sitting up in bed. Awake and alert. Still with wheezing and bronchospasm. Maintaining good O2 saturations up to 100% on 2 L/m per nasal cannula. Continued on DuoNeb inhalations, Perforomist and Pulmicort inhalations, Solu-Medrol. Antibiotics in the form of azithromycin. Barboza virus not detected. The patient is seen today 01/26/2023 in follow-up on the regular medical floor. He is awake and alert in no acute distress. Maintaining O2 saturations in the 90s on 2 L/m per nasal cannula. He is still having significant cough and congestion and wheezing. Continued on DuoNeb inhalations, Pulmicort and perforomist inhalations, IV Solu-Medrol. Completed azithromycin. White count 10.4. Hemoglobin 9.0. Platelets 6:15. Sodium 138. Potassium 6.1. BUN 70. Creatinine 1.9. Glucose 123. Reevaluated today on 01/27/23, patient is basically about the same, he states that his breathing a bit easier but nonetheless on physical examination continues to have significant rhonchi and wheezes bilaterally, patient is not showing much improvement in spite of maximal bronchodilators and IV steroids as well as antibiotics. He is being followed by nephrology for his acute kidney injury. Potassium today is 5.4. BUN is 70.8 creatinine is 1.19 The patient is seen today 01/28/2023 in follow-up on the regular medical floor. He is awake and alert in no acute distress. Sitting up in bed. His been slow to progress. Still with a loose cough. Normal saline at 50 ML's per hour. Procalcitonin was 0.10. He is continued on ceftriaxone. Suspected urinary tract infection. White count 7.6. Hemoglobin 8.6. Platelets 613. He is continued on DuoNeb inhalations, Pulmicort and perform as inhalations, Solu- Medrol. Maintaining O2 saturations in the 90s on 2 L/m per nasal cannula. Heparin for DVT prophylaxis. The patient is seen today 01/29/2023 in follow-up on the regular medical floor. He is currently resting comfortably in bed. Awake and alert in no acute distress. Breathing easier today compared to yesterday. Sodium 143. Potassium 5.5. Bicarb 26. BUN 61. Creatinine 1.6. Urine culture pending. Remains on c eftriaxone. He is continued on DuoNeb inhalations, Pulmicort and Perforomist inhalations, IV Solu-Medrol. Normal saline at 50 MLS per hour. Heparin for DVT prophylaxis. He is tolerating a diet. Objective - Vital Signs Vital signs: Vital Signs Temp 97.6 F 01/29/23 07:05 Pulse 96 01/29/23 08:44 Resp 20 01/29/23 07:05 BP 165/80 07/25/23 07:05 Pulse Ox 98 01/29/23 08:22 FiO2 40 01/23/23 11:43 Intake & Output 01/28/23 01/29/23 01/29/23 18:59 06:59 18:59 Intake Total 100 Balance 100 Weight 59 kg 59 kg Intake: Intake, IV Titration 100 Amount cefTRIAXone 1 gm In 100 Sodium Chloride 0.9% 50 ml @ 100 mls/hr IVPB Q24HR [facility] Rx#:[id number] Other: Voiding Method Toilet Toilet Toilet Diaper Diaper # Voids 2 2 - Exam GENERAL EXAM: Alert, hard of hearing 87-year-old male, resting in bed, 2 L nasal cannula, comfortable in no apparent distress. HEAD: Normocephalic and atraumatic EYES: Normal reaction of pupils, equal size. NOSE: Clear with pink turbinates. THROAT: No erythema or exudates. NECK: No masses, no JVD. CHEST: No chest wall deformity. LUNGS: Equal air entry with right lower lobe inspiratory crackles. Bilateral wheeze. CVS: S1 and S2 normal with no audible murmur, regular rhythm. No extra heart sounds ABDOMEN: No hepatosplenomegaly, active bowel sounds, no guarding or rigidity. SPINE: No scoliosis or deformity SKIN: No rashes CENTRAL NERVOUS SYSTEM: No focal deficits, tone is normal in all 4 extremities. EXTREMITIES: There is no peripheral edema, clubbing, or cyanosis. Peripheral pulses are intact. - Labs CBC & Chem 7: 01/28/23 06:37 01/29/23 05:00 Labs: Abnormal Lab Results - Last 24 Hours (Table) 01/28/23 01/28/23 01/29/23 Range/Units 06:37 14:10 05:00 Lymphocytes # (Manual) 0.08 L (0.90-5.00) X 10*3/uL Eosinophils # (Manual) 0 L (0.04-0.35) X 10*3/uL Schistocytes 1+ A Potassium 5.3 H (3.5-5.1) mmol/L BUN 61.1 H (9.0-27.0) mg/dL Creatinine 1.6 H (0.6-1.5) mg/dL Est GFR (CKD-EPI) 41 L (>=60) BUN/Creatinine Ratio 38.19 H (12.00-20.00) Ratio Glucose 116 H (70-110) mg/dL Calcium 7.9 L (8.7-10.3) mg/dL Assessment and Plan Assessment: Acute exacerbation of obstructive pulmonary disease. Chest x-ray showed no acute process Chronic hypoxemic respiratory failure, currently on 2 L/m nasal cannula History of bladder cancer. Renal computed tomography scan revealed moderate left and mild right hydroureteronephrosis without obstructing calculus identified. Urinary bladder diverticulum with mildly prominent prostate gland which could represent chronic outlet obstruction. Urinary tract infection suspected, culture pending, currently on ceftriaxone Colonic diverticulosis without evidence of acute diverticulitis History of pulmonary hypertension Benign essential hypertension Hyperlipidemia Chronic kidney disease stage III Anemia of chronic disease History DVT Ex-smoker Plan: The patient was seen and evaluated Medications and labs are reviewed Continued on bronchodilators, steroids Will transition to oral steroids Cleared for discharge from the pulmonary standpoint The patient does have severe COPD and condition is guarded DO NOT RESUSCITATE/DO NOT INTUBATE CODE STATUS Follow-up with Dr. Chavarria in 1 week I have personally seen and examined the patient, performed the documentation and the assessment and plan as written. Number of minutes spent on the visit: 10.
--- NOTE | 2023-01-29 11:38 | P.PN ---
Subjective This is an 87-year-old male who presented to the emergency room with shortness of breath which has increased over the last several weeks. Upon arrival of EMS he was in respiratory distress, hypertensive and tachycardic, with a respiratory rate of 30. Patient has a medical history of severe oxygen-dependent COPD, pulmonary hypertension, hypertension, hyperlipidemia, DVT, and bladder cancer. He is maintained on 2 L of oxygen via nasal cannula at home. This morning he is seen sitting up in bed, maintained on 2 L of oxygen. He reports shortness of breath has somewhat improved, but does feel fatigued. 01/26/2023 Patient is still short of breath and tachypnea with mild to moderate respiratory distress. However patient is able to eat and talk with his mild difficulty. Occasional coughing but no chest pain. Patient currently on IV Solu-Medrol and followed closely by pulmonary team. Creatinine at baseline 2.0 and 1.9 however potassium is getting up 5.7 6.1 today. 3 going to give cocktail and consult nephrology team. 01/27/2023 Patient is the same or slightly better, especially when he talks about his breathing he feels little better but still patient has significant wheezing and he is still mildly hypoxic requiring 2-3 L of oxygen via nasal cannula and currently Solu-Medrol 60 Mg Also Patient with Evidence with Acute Kidney Injury and Chronic Kidney Disease with Imaging Showing Bilateral Hydroureteronephrosis, Neurology and Nephrology Team Input Is Appreciated and Patient Has Evidence of Urinary Tract Infection Which May Be Contributing to His Obstructive Uropathy Therefore Started on Ceftriaxone and Follow-Up Urine Culture. Flomax was on board. Continue with I be iv solumedrol 60 mg. Discussed with staff 01/28/2023 Patient is improving slowly and gradually, his breathing slightly better, he is saturating 100% with oxygen via nasal cannula however is still somewhat tachypneic with mild respiratory distress Is currently kept on salmeterol with pulmonary follow closely. Labs reviewed and stable. Potassium 5.4. Urology and nephrology team on the case for acute kidney injury on chronic kidney disease with mild hyperkalemia. Patient with history of urinary bladder cancers and evidence of bilateral hydronephrosis. Also patient on ceftriaxone for possible urinary tract infection. Urine culture is pending.. No Swartz currently. There is no evidence of urinary retention and bladder scan. PT evaluation 01/29/2023 Patient is clinically improving, although he is still generally weak. Reason is doing better and pulmonary team has switched him to oral prednisone. His UTI and bilateral hydronephrosis still active problems. His been covered with ceftriaxone, today in axis was admitted because of used, one in the urine culture which is not finally at area Diflucan is rather good choice because of chronic obstructive interaction. Neurology team are considering cystoscopy with transurethral resection of the bladder trigone with stent placement versus ureteral nephrostomy tube placement to help relieve of obstruction. Creatinine improving down to 1.6 and potassium 5.5 while patient is on normal saline 50 mL/h and status post lokelor Objective - Vital Signs Vital signs: Vital Signs Temp 97.6 F 01/29/23 07:05 Pulse 98 01/29/23 11:34 Resp 20 01/29/23 07:05 BP 165/80 01/29/23 07:05 Pulse Ox 98 01/29/23 08:22 FiO2 40 01/23/23 11:43 Intake & Output 01/28/23 01/29/23 01/29/23 18:59 06:59 18:59 Intake Total 100 220 Balance 100 220 Weight 59 kg 59 kg Intake: Intake, IV Titration 100 100 Amount cefTRIAXone 1 gm In 100 100 Sodium Chloride 0.9% 50 ml @ 100 mls/hr IVPB Q24HR [facility] Rx#:[id number] Oral 120 Other: Voiding Method Toilet Toilet Toilet Diaper Diaper # Voids 2 2 2 - Exam GENERAL: The patient is alert and oriented x3, not in any acute distress. Well developed, well nourished. HEENT: Pupils are round and equally reacting to light. EOMI. No scleral icterus. No conjunctival pallor. Normocephalic, atraumatic. No pharyngeal erythema. No thyromegaly. CARDIOVASCULAR: S1 and S2 present. No murmurs, rubs, or gallops. -PULMONARY: Chest is clear to auscultation, bilateral expiratory wheezing , no crackles. ABDOMEN: Soft, nontender, nondistended, normoactive bowel sounds. No palpable organomegaly. MUSCULOSKELETAL: No joint swelling or deformity. EXTREMITIES: No cyanosis, clubbing, or pedal edema. NEUROLOGICAL: Gross neurological examination did not reveal any focal deficits. SKIN: No rashes. no petechiae. - Labs CBC & Chem 7: 01/28/23 06:37 01/29/23 05:00 Labs: Abnormal Lab Results - Last 24 Hours (Table) 01/28/23 01/29/23 Range/Units 14:10 05:00 Potassium 5.3 H (3.5-5.1) mmol/L BUN 61.1 H (9.0-27.0) mg/dL Creatinine 1.6 H (0.6-1.5) mg/dL Est GFR (CKD-EPI) 41 L (>=60) BUN/Creatinine Ratio 38.19 H (12.00-20.00) Ratio Glucose 116 H (70-110) mg/dL Calcium 7.9 L (8.7-10.3) mg/dL Microbiology - Last 24 Hours (Table) 01/27/23 12:30 Urine Culture - Preliminary Urine,Voided Yeast Assessment and Plan Assessment: Acute COPD exacerbation, improving Acute hypoxic respiratory failure Hyperkalemia, improved Acute kidney injury on Chronic kidney disease stage III Bilateral Hydroureteronephrosis, suspected secondary to a known history of coronary bladder cancer with UTI as well Urinary Tract Infection Obstructive uropathy Normochromic, normocytic anemia Chronic kidney disease stage III Plan: Continue with IV Solu-Medrol Nephrology and urology consult Start ceftriaxone and follow-up urine culture continue with Flomax Labs and medication were reviewed.. Continue same treatment. Continue with symptomatic treatment. Resume home medication. Monitor labs and vitals. DVT and GI prophylaxis. Further recommendations as per clinical course of the patient DVT prophylaxis: Subcutaneous heparin GI Prophylaxis: Ppi Prognosis is guarded
--- NOTE | 2023-01-29 11:43 | P.PN ---
Subjective Patient is seen in follow-up for acute kidney injury on chronic kidney disease. Renal function improved. Has been voiding. On 2 L nasal cannula. Hard of hearing. Vital signs are stable. General: No acute distress. HEENT: Head exam is unremarkable. On nasal cannula. LUNGS: Scattered rhonchi. HEART: Rate and Rhythm are regular. ABDOMEN: Nontender. EXTREMITITES: No edema. Objective - Vital Signs Vital signs: Vital Signs Temp 97.6 F 01/29/23 07:05 Pulse 98 01/29/23 11:34 Resp 20 01/29/23 07:05 BP 165/80 01/29/23 07:05 Pulse Ox 98 01/29/23 08:22 FiO2 40 01/23/23 11:43 Intake & Output 01/28/23 01/29/23 01/29/23 18:59 06:59 18:59 Intake Total 100 220 Balance 100 220 Weight 59 kg 59 kg Intake: Intake, IV Titration 100 100 Amount cefTRIAXone 1 gm In 100 100 Sodium Chloride 0.9% 50 ml @ 100 mls/hr IVPB Q24HR [facility] Rx#:[id number] Oral 120 Other: Voiding Method Toilet Toilet Toilet Diaper Diaper # Voids 2 2 2 - Labs CBC & Chem 7: 01/28/23 06:37 01/29/23 05:00 Labs: Abnormal Lab Results - Last 24 Hours (Table) 01/28/23 01/29/23 Range/Units 14:10 05:00 Potassium 5.3 H (3.5-5.1) mmol/L BUN 61.1 H (9.0-27.0) mg/dL Creatinine 1.6 H (0.6-1.5) mg/dL Est GFR (CKD-EPI) 41 L (>=60) BUN/Creatinine Ratio 38.19 H (12.00-20.00) Ratio Glucose 116 H (70-110) mg/dL Calcium 7.9 L (8.7-10.3) mg/dL Microbiology - Last 24 Hours (Table) 01/27/23 12:30 Urine Culture - Preliminary Urine,Voided Yeast Assessment and Plan Plan: Assessment: 1. Acute kidney injury secondary to ATN and component of obstructive uropathy. UA suggestive of UTI. Trace protein. Renal function improved. Creatinine 1.6 today. 2. Bilateral hydronephrosis. Urology following. 3. History of bladder cancer. 4. Hyperkalemia secondary to acute kidney injury and obstructive uropathy. Stable. 5. 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 6. Hypertension with chronic kidney disease. Stable. Exacerbated by steroids. Plan: Hep-Lock IV fluids. Encouraged oral intake. Avoid nephrotoxins. Continue to monitor renal function and urine output. Low potassium diet. Add lokelma 10 g once daily x 4 days. Repeat BMP and magnesium level 2-3 days postdischarge. Follow-up patient in one week.
[2023-01-29] MEDS: SODIUM ZIRCONIUM CYCLOSILICATE 10 GM PACKET PO SCH (13:13)
[2023-01-29] MEDS: TAMSULOSIN 0.4 MG CAP.ER.24H PO SCH (18:04)
[2023-01-29] MEDS ORDERED: ANIDULAFUNGIN 100 MG in SODIUM CHLORIDE 0.9% 100 ML IVPB SCH (21:00)
[2023-01-29] MEDS: LATANOPROST 0.005% OPHTH DROPS 2.5 ML BTL BOTH EYES SCH (21:29)
[2023-01-30] MEDS: PANTOPRAZOLE 40 MG TABLET PO SCH (06:59)
[2023-01-30 07:36] VITALS: RESP 18
[2023-01-30] MEDS: ATORVASTATIN 20 MG TAB PO SCH (08:34)
[2023-01-30] MEDS: CITALOPRAM HYDROBROMIDE 20 MG TAB PO SCH (08:34)
[2023-01-30] MEDS: HEPARIN SODIUM,PORCINE/PF 5,000 UNIT/0.5 ML SYRINGE SQ SCH (08:34)
[2023-01-30] MEDS: amLODIPine 2.5 MG TAB PO SCH (08:34)
[2023-01-30] MEDS: SODIUM ZIRCONIUM CYCLOSILICATE 10 GM PACKET PO SCH (08:35)
[2023-01-30] MEDS ORDERED: predniSONE 20 MG TAB PO SCH (09:00)
[2023-01-30] MEDS: FORMOTEROL FUMARATE 20 MCG/2 ML NEBU INHALATION SCH (09:35)
[2023-01-30] MEDS: BUDESONIDE 0.5 MG/2 ML NEBU INHALATION SCH (09:35)
[2023-01-30] MEDS: IPRATROPIUM-ALBUTEROL 3 ML NEB INHALATION SCH ×3 (09:35→15:58)
[2023-01-30 09:47] LABS: Blood Urea Nitrogen 56.4 mg/dL (9.0-27.0); Calcium 7.8 mg/dL (8.7-10.3); Carbon Dioxide 26.5 mmol/L (21.6-31.8); Chloride 108 mmol/L (96-109); Glucose 73 mg/dL (70-110); Magnesium 2.3 mg/dL (1.5-2.4); Potassium 4.8 mmol/L (3.5-5.5); Sodium 143 mmol/L (135-145)
--- NOTE | 2023-01-30 12:29 | P.PN ---
Subjective Patient is seen in follow-up for acute kidney injury on chronic kidney disease. Renal function improved. Has been voiding. On 2 L nasal cannula. Hard of hearing. No changes overnight. Vital signs are stable. General: No acute distress. HEENT: Head exam is unremarkable. On nasal cannula. LUNGS: Scattered rhonchi. HEART: Rate and Rhythm are regular. ABDOMEN: Nontender. EXTREMITITES: No edema. Objective - Vital Signs Vital signs: Vital Signs Temp 98.5 F 01/30/23 07:05 Pulse 94 01/30/23 10:02 Resp 18 01/30/23 07:05 BP 165/75 01/30/23 07:05 Pulse Ox 99 01/30/23 09:35 FiO2 40 01/23/23 11:43 Intake & Output 01/29/23 01/30/23 01/30/23 18:59 06:59 18:59 Intake Total 220 Output Total 1 Balance 220 -1 Weight 59 kg Intake: Intake, IV Titration 100 Amount cefTRIAXone 1 gm In 100 Sodium Chloride 0.9% 50 ml @ 100 mls/hr IVPB Q24HR [facility] Rx#:[id number] Oral 120 Output: Urine 1 Other: Voiding Method Toilet Toilet Diaper # Voids 1 2 - Labs CBC & Chem 7: 01/28/23 06:37 01/30/23 05:52 Labs: Abnormal Lab Results - Last 24 Hours (Table) 01/30/23 Range/Units 05:52 BUN 56.4 H (9.0-27.0) mg/dL Est GFR (CKD-EPI) 45 L (>=60) BUN/Creatinine Ratio 37.60 H (12.00-20.00) Ratio Calcium 7.8 L (8.7-10.3) mg/dL Microbiology - Last 24 Hours (Table) 01/27/23 12:30 Urine Culture - Preliminary Urine,Voided Yeast Assessment and Plan Plan: Assessment: 1. Acute kidney injury secondary to ATN and component of obstructive uropathy. UA suggestive of UTI. Trace protein. Renal function improved. Creatinine 1.5 today. 2. Bilateral hydronephrosis. Urology following. Has Swartz catheter. 3. History of bladder cancer. 4. Hyperkalemia secondary to acute kidney injury and obstructive uropathy. Potassium level normal. 5. 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 6. Hypertension with chronic kidney disease. Stable. Exacerbated by steroids. Plan: Encouraged oral intake. Avoid nephrotoxins. Continue to monitor renal function and urine output. Low potassium diet. Maintain lokelma 10 g once daily x 4 days. Repeat BMP and magnesium level 2-3 days postdischarge. Follow-up patient in one week.
--- NOTE | 2023-01-30 12:39 | P.PN ---
Subjective Progress Note Date: 01/30/23 Principal diagnosis: Hydronephrosis The patient denies difficulty voiding. Specifically, he denies dysuria, hematuria, and flank pain. Objective - Vital Signs Vital signs: Vital Signs Temp 98.5 F 01/30/23 07:05 Pulse 94 01/30/23 10:02 Resp 18 01/30/23 07:05 BP 165/75 01/30/23 07:05 Pulse Ox 99 01/30/23 09:35 FiO2 40 01/23/23 11:43 Intake & Output 01/29/23 01/30/23 01/30/23 18:59 06:59 18:59 Intake Total 220 Output Total 1 Balance 220 -1 Weight 59 kg Intake: Intake, IV Titration 100 Amount cefTRIAXone 1 gm In 100 Sodium Chloride 0.9% 50 ml @ 100 mls/hr IVPB Q24HR [facility] Rx#:[id number] Oral 120 Output: Urine 1 Other: Voiding Method Toilet Toilet Diaper # Voids 1 2 - Constitutional General appearance: Present: average body habitus, cooperative, no acute distress - Psychiatric Psychiatric: Present: A&O x's 3 - Labs CBC & Chem 7: 01/28/23 06:37 01/30/23 05:52 Labs: Abnormal Lab Results - Last 24 Hours (Table) 01/30/23 Range/Units 05:52 BUN 56.4 H (9.0-27.0) mg/dL Est GFR (CKD-EPI) 45 L (>=60) BUN/Creatinine Ratio 37.60 H (12.00-20.00) Ratio Calcium 7.8 L (8.7-10.3) mg/dL Microbiology - Last 24 Hours (Table) 01/27/23 12:30 Urine Culture - Preliminary Urine,Voided Yeast Assessment and Plan Assessment: CT scan shows bilateral hydroureteronephrosis, moderate on the right and marked on the left with renal parenchymal thinning (on the left). The left ureter is markedly dilated and tortuous. The ureters are dilated down to the bladder. 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 Su. Recent cystoscopy showed no tumors. Urinary retention can be a cause of bilateral hydronephrosis. Renal function is gradually improving. (1) Malignant neoplasm of bladder, unspecified Current Visit: Yes Status: Acute Code(s): C67.9 - MALIGNANT NEOPLASM OF BLADDER, UNSPECIFIED SNOMED Code(s): 421837264 (2) Hydronephrosis Current Visit: Yes Status: Acute Code(s): N13.30 - UNSPECIFIED HYDRONEPHROSIS SNOMED Code(s): 62562788 Plan: The patient has hydroureteronephrosis, likely due to his known bladder cancer or incomplete bladder emptying. The postvoid residual will be checked. If he is found to empty his bladder adequately, it would be reasonable to proceed with cystoscopy, transurethral resection of the bladder trigone with attempted stent placement. However, this will require general anesthesia or spinal anesthesia and he is a poor anesthetic risk.
--- NOTE | 2023-01-30 13:44 | P.PN ---
Subjective Progress Note Date: 01/30/23 I am seeing this patient in new consultation today 01/24/2023 for suspected acute COPD exacerbation. Patient is an 87-year-old white male with past medical history significant for severe oxygen dependent COPD, pulmonary hypertension, hypertension, hyperlipidemia, DVT, bladder cancer. Patient does follow up in the office with Dr. Chavarria, for management of his severe COPD with FEV1 41% of predicted. Patient does utilize 2 L/m nasal cannula 28/01. Patient's primary care provider is Dr. Elizabeth. Patient is fairly hard of hearing, making it difficult to communicate. Apparently, the patient has had some progressive shortness of breath and cough for the last several weeks. He presented to the emergency room via EMS yesterday afternoon. He was found to be in some acute respiratory distress. He was also hypertensive and tachycardic. Chest x-ray on arrival showed no acute cardiopulmonary process. Patient is currently sitting up in bed, on 2 L/m nasal cannula, in no acute distress. He is currently on a combination of DuoNeb's, desonide, formoterol, and IV Solu-Medrol. He seems fairly comfortable, and is already showing improvement in his respiratory status. Denies any fever, chills, myalgias, cough, hemoptysis. Denies any chest pain, heart palpitations, lower extremity edema, orthopnea. CBC on arrival showed a WBC count of 7.3, hemoglobin 9.2, hematocrit 32.6, platelets 383. BMP on arrival shows sodium 136, potassium 5.4, chloride 103, serum bicarb 24, BUN 50, creatinine 1.46, glucose 104. NT proBNP was mildly elevated at 1150, but not significant for age. Troponin was 0.025. Overall, the patient's condition seems to be improving nicely. The patient is seen today 01/25/2023 in follow-up on the regular medical floor. He is currently sitting up in bed. Awake and alert. Still with wheezing and bronchospasm. Maintaining good O2 saturations up to 100% on 2 L/m per nasal cannula. Continued on DuoNeb inhalations, Perforomist and Pulmicort inhalations, Solu-Medrol. Antibiotics in the form of azithromycin. Barboza virus not detected. The patient is seen today 01/26/2023 in follow-up on the regular medical floor. He is awake and alert in no acute distress. Maintaining O2 saturations in the 90s on 2 L/m per nasal cannula. He is still having significant cough and congestion and wheezing. Continued on DuoNeb inhalations, Pulmicort and perforomist inhalations, IV Solu-Medrol. Completed azithromycin. White count 10.4. Hemoglobin 9.0. Platelets 6:15. Sodium 138. Potassium 6.1. BUN 70. Creatinine 1.9. Glucose 123. Reevaluated today on 01/27/23, patient is basically about the same, he states that his breathing a bit easier but nonetheless on physical examination continues to have significant rhonchi and wheezes bilaterally, patient is not showing much improvement in spite of maximal bronchodilators and IV steroids as well as antibiotics. He is being followed by nephrology for his acute kidney injury. Potassium today is 5.4. BUN is 70.8 creatinine is 1.19 The patient is seen today 01/28/2023 in follow-up on the regular medical floor. He is awake and alert in no acute distress. Sitting up in bed. His been slow to progress. Still with a loose cough. Normal saline at 50 ML's per hour. Procalcitonin was 0.10. He is continued on ceftriaxone. Suspected urinary tract infection. White count 7.6. Hemoglobin 8.6. Platelets 613. He is continued on DuoNeb inhalations, Pulmicort and perform as inhalations, Solu- Medrol. Maintaining O2 saturations in the 90s on 2 L/m per nasal cannula. Heparin for DVT prophylaxis. The patient is seen today 01/29/2023 in follow-up on the regular medical floor. He is currently resting comfortably in bed. Awake and alert in no acute distress. Breathing easier today compared to yesterday. Sodium 143. Potassium 5.5. Bicarb 26. BUN 61. Creatinine 1.6. Urine culture pending. Remains on c eftriaxone. He is continued on DuoNeb inhalations, Pulmicort and Perforomist inhalations, IV Solu-Medrol. Normal saline at 50 MLS per hour. Heparin for DVT prophylaxis. He is tolerating a diet. The patient is seen today 01/30/2023 in follow-up on the regular medical floor. He is currently sitting up in bed. Awake and alert in no acute distress. Maintaining O2 saturations in the 90s and 2 L/m per nasal cannula. No worsening shortness of breath, cough or congestion. Still dyspneic with exertion. Dyspneic with conversation. Feeling back to his baseline. Sodium 143. Potassium 4.8. Bicarb 26. BUN 56. Creatinine 1.5. Glucose 73. He is continued on DuoNeb inhalations, Symbicort, IV Solu-Medrol. Heparin for DVT prophylaxis. Antibiotics in the form of ceftriaxone. On Eraxis. Objective - Vital Signs Vital signs: Vital Signs Temp 98.5 F 01/30/23 07:05 Pulse 100 01/30/23 12:59 Resp 18 01/30/23 07:05 BP 165/75 01/30/23 07:05 Pulse Ox 99 01/30/23 09:35 FiO2 40 01/23/23 11:43 Intake & Output 01/29/23 01/30/23 01/30/23 18:59 06:59 18:59 Intake Total 220 Output Total 1 Balance 220 -1 Weight 59 kg Intake: Intake, IV Titration 100 Amount cefTRIAXone 1 gm In 100 Sodium Chloride 0.9% 50 ml @ 100 mls/hr IVPB Q24HR [facility] Rx#:[id number] Oral 120 Output: Urine 1 Other: Voiding Method Toilet Toilet Diaper # Voids 1 2 - Exam GENERAL EXAM: Alert, very pleasant frail 87-year-old male, resting in bed, 2 L nasal cannula, comfortable in no apparent distress. HEAD: Normocephalic and atraumatic EYES: Normal reaction of pupils, equal size. NOSE: Clear with pink turbinates. THROAT: No erythema or exudates. NECK: No masses, no JVD. CHEST: No chest wall deformity. LUNGS: Equal air entry with right lower lobe inspiratory crackles. Bilateral wheeze. CVS: S1 and S2 normal with no audible murmur, regular rhythm. No extra heart sounds ABDOMEN: No hepatosplenomegaly, active bowel sounds, no guarding or rigidity. SPINE: No scoliosis or deformity SKIN: No rashes CENTRAL NERVOUS SYSTEM: No focal deficits, tone is normal in all 4 extremities. EXTREMITIES: There is no peripheral edema, clubbing, or cyanosis. Peripheral pulses are intact. - Labs CBC & Chem 7: 01/28/23 06:37 01/30/23 05:52 Labs: Abnormal Lab Results - Last 24 Hours (Table) 07/26/23 Range/Units 05:52 BUN 56.4 H (9.0-27.0) mg/dL Est GFR (CKD-EPI) 45 L (>=60) BUN/Creatinine Ratio 37.60 H (12.00-20.00) Ratio Calcium 7.8 L (8.7-10.3) mg/dL Microbiology - Last 24 Hours (Table) 01/27/23 12:30 Urine Culture - Preliminary Urine,Voided Yeast Assessment and Plan Assessment: Acute exacerbation of obstructive pulmonary disease. Chest x-ray showed no acute process Chronic hypoxemic respiratory failure, currently on 2 L/m nasal cannula History of bladder cancer. Renal computed tomography scan revealed moderate left and mild right hydroureteronephrosis without obstructing calculus identified. Urinary bladder diverticulum with mildly prominent prostate gland which could represent chronic outlet obstruction. Urinary tract infection suspected, culture pending, currently on ceftriaxone Colonic diverticulosis without evidence of acute diverticulitis History of pulmonary hypertension Benign essential hypertension Hyperlipidemia Chronic kidney disease stage III Anemia of chronic disease History DVT Ex-smoker Plan: The patient was seen and evaluated Medications and labs are reviewed Cleared for discharge from the pulmonary standpoint The patient does have severe COPD and condition is guarded Follow-up with Dr. Chavarria in 1 week I have personally seen and examined the patient, performed the documentation and the assessment and plan as written. Number of minutes spent on the visit: 10.
[2023-01-30 13:45] VITALS: BP 166/77; TEMP 97.7
[2023-01-30 16:01] VITALS: PULSE 96
[2023-01-30] MEDS ORDERED: SYMBICORT 160-4.5 MCG INHALER INHALATION SCH (20:00)
== END 2023-01-30 18:08 | disposition home health service (06) | DRG 190 ==
LOC: EC 11:09 → 3SCARD 13:44 → 4SSUR 18:28
PROVIDERS: ADMIT Family Medicine; ATTEND Family Medicine
DX: J44.1 Chronic obstructive pulmonary disease with (acute) exacerbation (principal); J96.21 Acute and chronic respiratory failure with hypoxia; N17.0 Acute kidney failure with tubular necrosis; N18.4 Chronic kidney disease, stage 4 (severe); Z87.891 Personal history of nicotine dependence; C67.9 Malignant neoplasm of bladder, unspecified; D63.1 Anemia in chronic kidney disease; I12.9 Hypertensive chronic kidney disease with stage 1 through stage 4 chronic kidney disease, or unspecified chronic kidney disease; E78.5 Hyperlipidemia, unspecified; E87.5 Hyperkalemia; F32.A Depression, unspecified; F41.9 Anxiety disorder, unspecified; H91.90 Unspecified hearing loss, unspecified ear; I83.90 Asymptomatic varicose veins of unspecified lower extremity; G89.29 Other chronic pain; M19.90 Unspecified osteoarthritis, unspecified site; I27.20 Pulmonary hypertension, unspecified; Z20.822 Contact with and (suspected) exposure to COVID-19; Z87.01 Personal history of pneumonia (recurrent); N32.3 Diverticulum of bladder; Z99.81 Dependence on supplemental oxygen; N40.1 Benign prostatic hyperplasia with lower urinary tract symptoms; R33.8 Other retention of urine; T38.0X5A Adverse effect of glucocorticoids and synthetic analogues, initial encounter; Z79.52 Long term (current) use of systemic steroids; Z79.899 Other long term (current) drug therapy; Z86.718 Personal history of other venous thrombosis and embolism; Z80.1 Family history of malignant neoplasm of trachea, bronchus and lung; Z71.3 Dietary counseling and surveillance
CPT/HCPCS: 36415; 71045; 74150; 76770; 80048; 80053; 81001; 83605; 83735; 83880; 84132; 84145; 84484; 85025; 85027; 85610; 85730; 87086; 87635; 93005; 94640; 94660; 94667; 94668; 94760; 96365; 96368; 96375; 96376; 99291

== ENCOUNTER 2023-02-10 17:51 | Emergency (ER) | payer MEDICARE ==
[2023-02-10 18:02] VITALS: RESP 16
[2023-02-10 19:42] LABS: ALT 40 U/L (4-49); AST 31 U/L (17-59); African American GFR (CKD) 40 (>60 ml/min/1.73 sqM); Albumin 3.3 g/dL (3.5-5.0); Alkaline Phosphatase 69 U/L (38-126); Anion Gap 4 mmol/L; Blood Urea Nitrogen 42 mg/dL (9-20); Calcium 8.2 mg/dL (8.4-10.2); Carbon Dioxide 30 mmol/L (22-30); Chloride 103 mmol/L (98-107); Glucose 99 mg/dL (74-99); Non-African American GFR(CKD) 35 (>60 ml/min/1.73 sqM); Potassium 4.7 mmol/L (3.5-5.1); Sodium 137 mmol/L (137-145); Total Bilirubin 0.4 mg/dL (0.2-1.3); Total Protein 6.5 g/dL (6.3-8.2)
[2023-02-10 19:43] LABS: Anisocytosis Slight; Basophils % (A) 0 %; Eosinophils # (A) 0.1 k/uL (0-0.7); Eosinophils % (A) 0 %; HCT 30.5 % (39.0-53.0); HGB 9.8 gm/dL (13.0-17.5); Lymphocytes # (A) 0.4 k/uL (1.0-4.8); Lymphocytes % (A) 3 %; MCH 29.1 pg (25.0-35.0); MCHC 32.1 g/dL (31.0-37.0); MCV 90.5 fL (80.0-100.0); Mean Platelet Volume 7.5; Monocytes # (A) 0.7 k/uL (0-1.0); Monocytes % (A) 5 %; Neutrophils # (A) 12.7 k/uL (1.3-7.7); Neutrophils % (A) 91 %; Platelet Count 208 k/uL (150-450); RBC 3.37 m/uL (4.30-5.90)
[2023-02-10 19:45] LABS: Appearance,Urine Cloudy (Clear); Bilirubin,Urine Negative (Negative); Blood,Urine Large (Negative); Color,Urine Red; Glucose,Urine (UA) Negative (Negative); Ketones,Urine Negative (Negative); Leukocyte Esterase,Urine Small (Negative); Nitrite,Urine Negative (Negative); Protein,Urine 2+ (Negative); RBC,Urine >182 /hpf (0-5); Specific Gravity,Urine 1.015 (1.001-1.035); Urobilinogen,Urine <2.0 mg/dL (<2.0); WBC,Urine 74 /hpf (0-5)
[2023-02-10 19:55] LABS: INR 0.9 (<1.2); Prothrombin Time 9.6 sec (9.0-12.0)
[2023-02-10 20:00] LABS: Partial Thromboplastin Time 19.5 sec (22.0-30.0)
[2023-02-10] MEDS ORDERED: cefTRIAXone IN SWFI 1,000 MG/10 ML SYRINGE IVP STA (20:06)
--- NOTE | 2023-02-10 20:08 | US ---
EXAMINATION TYPE: US renals and bladder DATE OF EXAM: 02/10/2023 COMPARISON: US & CT CLINICAL INDICATION: Male, 87 years old with history of hematuria, hx bladder cancer; Hematuria, h/o bladder CA EXAM MEASUREMENTS: Right Kidney: 10.5 x 4.7 x 4.5 cm Left Kidney: 10.3 x 4.7 x 4.1 cm Right Kidney: Moderate hydro. [place] to be similar comparing to prior CT and ultrasound. Left Kidney: Moderate hydro, [place] to be similar comparing to prior CT and ultrasound. Bladder: Theodore distended with multiple septations throughout Bilateral Jets seen: No IMPRESSION: 1. Complex debris within the urinary bladder correlate with direct visualization. Consider outpatien t MRI. 2. Moderate bilateral hydronephrosis as seen on prior CT 01/27/2023
[2023-02-10] MEDS ORDERED: FLUCONAZOLE 100 MG TAB PO ONE (21:06)
--- NOTE | 2023-02-10 21:10 | ED ---
General Adult HPI - General Chief complaint: GI Bleed Stated complaint: poss GI bleed Time Seen by Provider: 02/10/23 18:00 Source: family, EMS Mode of arrival: EMS Limitations: no limitations - History of Present Illness Initial comments: 87-year-old male with past medical history of bladder cancer who presents to the emergency department for possible rectal bleed. is at bedside. States that she saw blood in the patient's brief and was concerned that he was bleeding from his rectum. He has no history of GI bleed. He is not on any blood thi nners. Patient has advanced dementia and cannot provide much history. He denies any pain. No fevers. No other alleviating, precipitating or modifying factors - Related Data Home Medications Medication Instructions Recorded Confirmed Simvastatin [Zocor] 40 mg PO DAILY 07/10/15 01/23/23 ALPRAZolam [Xanax] 0.5 mg PO TID PRN 03/28/18 01/23/23 Latanoprost/Pf [Latanoprost 0.005% 1 drop BOTH EYES HS 04/20/22 01/23/23 Eye Drop] Budesonide [Pulmicort] 0.5 mg INHALATION RT-BID 01/23/23 01/23/23 Formoterol Fumarate [Perforomist] 20 mcg INHALATION RT-BID 01/23/23 01/23/23 Previous Rx's Medication Instructions Recorded Citalopram Hydrobromide [CeleXA] 20 mg PO DAILY #30 tab 09/18/17 Tamsulosin [Flomax] 0.4 mg PO HS #30 cap 04/25/22 amLODIPine [Norvasc] 2.5 mg PO BID #60 tab 04/25/22 predniSONE 5 mg PO DAILY #0 04/25/22 Albuterol Inhaler [Ventolin Hfa 2 puff INHALATION Q6H PRN #1 each 01/30/23 Inhaler] predniSONE 10 mg PO DIRECTED #40 tab 01/30/23 Levofloxacin [Levaquin] 750 mg PO DAILY 1 Days #7 tab 02/10/23 Allergies Allergy/AdvReac Type Severity Reaction Status Date / Time No Known Allergies Allergy Verified 02/10/23 18:03 Review of Systems ROS Statement: Those systems with pertinent positive or pertinent negative responses have been documented in the HPI. ROS Other: All systems not noted in ROS Statement are negative. Past Medical History Past Medical History: Cancer, Chest Pain / Angina, COPD, Deep Vein Thrombosis (DVT), Eye Disorder, Hearing Disorder / Deafness, Hyperlipidemia, Hypertension, Osteoarthritis (OA), Pneumonia, Prostate Disorder, Renal Disease Additional Past Medical History / Comment(s): Severe COPD with an FEV1 of 33% of predicted, chronic hypoxic respiratory failure, recurrent hospitalization for COPD exacerbation, stenotrophomonas tracheal bronchitis - HAD PFT 03/04/18. Bladder Cancer w/ prev surgery. RLE DVT. BPH. Chronic Back Pain. VARICOSE VEINS. O2 2L NC. ACUTE RENAL FAILURE 09/2017 R/T DEHYDRATION/DEPRESSION, PER . History of Any Multi-Drug Resistant Organisms: None Reported Past Surgical History: Bladder Surgery, Hernia Repair, Tonsillectomy Additional Past Surgical History / Comment(s): Bladder CA Surgery, Vasectomy. BRONCHIAL WASHING. EXC CATARACTS CARLOS., Past Anesthesia/Blood Transfusion Reactions: No Reported Reaction Past Psychological History: Anxiety, Depression Smoking Status: Former smoker - Past Family History Father Family Medical History: Cancer Additional Family Medical History / Comment(s): Father had scoliosis. Father of lung cancer Mother History Unknown: Yes Family Medical History: CVA/TIA Additional Family Medical History / Comment(s): Mother . Unknown history General Exam Limitations: physical limitation (hard of hearing) General appearance: alert, in no apparent distress Head exam: Present: atraumatic, normocephalic, normal inspection Eye exam: Present: normal appearance, PERRL, EOMI. Absent: scleral icterus, conjunctival injection, periorbital swelling ENT exam: Present: normal exam, mucous membranes moist Neck exam: Present: normal inspection. Absent: tenderness, meningismus, lymphadenopathy Respiratory exam: Present: normal lung sounds bilaterally. Absent: respiratory distress, wheezes, rales, rhonchi, stridor Cardiovascular Exam: Present: regular rate, normal rhythm, normal heart sounds. Absent: systolic murmur, diastolic murmur, rubs, gallop, clicks GI/Abdominal exam: Present: soft, normal bowel sounds. Absent: distended, tenderness, guarding, rebound, rigid Rectal exam: Present: normal inspection. Absent: black stool, bloody stool exam: Present: urethral discharge (bloody urine). Absent: testicular tenderness Extremities exam: Present: normal inspection, full ROM, normal capillary refill. Absent: tenderness, pedal edema, joint swelling, calf tenderness Back exam: Present: normal inspection Neurological exam: Present: alert, oriented X3, CN II-XII intact Psychiatric exam: Present: normal affect, normal mood Skin exam: Present: warm, dry, intact, normal color. Absent: rash Course Vital Signs 02/10/23 02/10/23 17:54 21:27 Temperature 98.1 F 97.6 F Pulse Rate 90 85 Respiratory 16 16 Rate Blood Pressure 168/88 165/84 O2 Sat by Pulse 94 L 96 Oximetry Medical Decision Making - Medical Decision Making Was pt. sent in by a medical professional or institution (, PA, APPRENTICE ELECTRICIAN, urgent care, hospital, or correction...) When possible be specific @ -No Did you speak to anyone other than the patient for history (EMS, parent, family, police, friend...)? What history was obtained from this source @ -Spoke with patient's for history Did you review nursing and triage notes (agree or disagree)? Why? @ -I reviewed and agree with nursing and triage notes Were old charts reviewed (outside hosp., previous admission, EMS record, old EKG, old radiological studies, urgent care reports/EKG's, correction records)? Report findings @ -Reviewed patient's consultation from urology during his hospitalization last month Differential Diagnosis (chest pain, altered mental status, abdominal pain women, abdominal pain men, vaginal bleeding, weakness, fever, dyspnea, syncope, headache, dizziness, GI bleed, back pain, seizure, CVA, palpatations, mental health, musculoskeletal)? @ -Differential GI Bleed: Esophageal varices, aortoenteric fistula, Elin-Nichole, gastritis, peptic ulcer disease, diverticulosis, inflammatory bowel disease, hematuria, bladder cancer, hemorrhoids, fissure, colitis, malignancy, Meckels diverticulum, this is not meant to be an all-inclusive list. EKG interpreted by me (3pts min.). @ -Not done X-rays interpreted by me (1pt min.). @ -None done CT interpreted by me (1pt min.). @ -None done U/S interpreted by me (1pt. min.). @ -Yes and demonstrates debris within the bladder What testing was considered but not performed or refused? (CT, X-rays, U/S, labs)? Why? @ -None What meds were considered but not given or refused? Why? @ -None Did you discuss the management of the patient with other professionals (professionals i.e. , DARLIN, APPRENTICE ELECTRICIAN, lab, RT, psych nurse, social media manager, vp publisher development, teacher, chief business officer, case consultant)? Give summary @ -Yes, Dr. Ragsdale. Recommends placing the patient on antibiotics. Urine will be sent for culture. Does not want the patient to have a catheter Was smoking cessation discussed for >3mins.? @ -No Was critical care preformed (if so, how long)? @ -No Were there social determinants of health that impacted care today? How? (Homelessness, low income, unemployed, alcoholism, drug addiction, transportation, low edu. Level, literacy, decrease access to med. care, long term, rehab)? @ -No Was there de-escalation of care discussed even if they declined (Discuss DNR or withdrawal of care, Hospice)? DNR status @ -No What co-morbidities impacted this encounter? (DM, HTN, Smoking, COPD, CAD, Cancer, CVA, ARF, Chemo, Hep., AIDS, mental health diagnosis, sleep apnea, morbid obesity)? @ -Bladder cancer Was patient admitted / discharged? Hospital course, mention meds given and route, prescriptions, significant lab abnormalities, going to OR and other pertinent info. @ -Upon arrival patient is placed in room 13. Thorough history and physical exam was performed. IV is established laboratory studies were conducted. Patient does have chronic anemia which is improved from last blood draw. He does have a leukocytosis of 14. Urinalysis does demonstrate large blood and white blood cells. Ultrasound demonstrates debris within the bladder. Called and spoke with Dr. Ragsdale. He does not want the patient to have a catheter. Would like the patient on empiric antibiotics does have an appointment in the morning. This was discussed with the patient. Patient and were agreeable to discharge. Instructed to return for any new or worsening symptoms. Patient discharged in stable condition Undiagnosed new problem with uncertain prognosis? @ -yes Drug Therapy requiring intensive monitoring for toxicity (Heparin, Nitro, Insulin, Cardizem)? @ -No Were any procedures done? @ -No Diagnosis/symptom? @ -acute hematuria, abn ua, hx bladder cancer Acute, or Chronic, or Acute on Chronic? @ -acute Uncomplicated (without systemic symptoms) or Complicated (systemic symptoms)? @ -complicated Side effects of treatment? @ -No Exacerbation, Progression, or Severe Exacerbation? @ -No Poses a threat to life or bodily function? How? (Chest pain, [place], [place], pneumonia, PE, COPD, DKA, ARF, appy, cholecystitis, CVA, Diverticulitis, Homicidal, Suicidal, threat to staff... and all critical care pts) @ -No - Lab Data Result diagrams: 02/10/23 18:45 02/10/23 18:45 Lab Results 02/10/23 02/10/23 02/10/23 Range/Units 18:45 18:45 18:45 WBC 14.0 H (3.8-10.6) k/uL RBC 3.37 L (4.30-5.90) m/uL Hgb 9.8 L (13.0-17.5) gm/dL Hct 30.5 L (39.0-53.0) % MCV 90.5 (80.0-100.0) fL MCH 29.1 (25.0-35.0) pg MCHC 32.1 (31.0-37.0) g/dL RDW 18.0 H (11.5-15.5) % Plt Count 208 (150-450) k/uL MPV 7.5 Neutrophils % 91 % Lymphocytes % 3 % Monocytes % 5 % Eosinophils % 0 % Basophils % 0 % Neutrophils # 12.7 H (1.3-7.7) k/uL Lymphocytes # 0.4 L (1.0-4.8) k/uL Monocytes # 0.7 (0-1.0) k/uL Eosinophils # 0.1 (0-0.7) k/uL Basophils # 0.0 (0-0.2) k/uL Anisocytosis Slight PT 9.6 (9.0-12.0) sec INR 0.9 (<1.2) APTT 19.5 L (22.0-30.0) sec Sodium 137 (137-145) mmol/L Potassium 4.7 (3.5-5.1) mmol/L Chloride 103 (98-107) mmol/L Carbon Dioxide 30 (22-30) mmol/L Anion Gap 4 mmol/L BUN 42 H (9-20) mg/dL Creatinine 1.72 H (0.66-1.25) mg/dL Est GFR (CKD-EPI)AfAm 40 (>60 ml/min/1.73 sqM) Est GFR (CKD-EPI)NonAf 35 (>60 ml/min/1.73 sqM) Glucose 99 (74-99) mg/dL Plasma Lactic Acid Ye (0.7-2.0) mmol/L Calcium 8.2 L (8.4-10.2) mg/dL Total Bilirubin 0.4 (0.2-1.3) mg/dL AST 31 (17-59) U/L ALT 40 (4-49) U/L Alkaline Phosphatase 69 (38-126) U/L Total Protein 6.5 (6.3-8.2) g/dL Albumin 3.3 L (3.5-5.0) g/dL Urine Color Urine Appearance (Clear) Urine pH (5.0-8.0) Ur Specific [place] (1.001-1.035) Urine Protein (Negative) Urine Glucose (UA) (Negative) Urine Ketones (Negative) Urine Blood (Negative) Urine Nitrite (Negative) Urine Bilirubin (Negative) Urine Urobilinogen (<2.0) mg/dL Ur Leukocyte Esterase (Negative) Urine RBC (0-5) /hpf Urine WBC (0-5) /hpf 02/10/23 02/10/23 Range/Units 18:45 18:45 WBC (3.8-10.6) k/uL RBC (4.30-5.90) m/uL Hgb (13.0-17.5) gm/dL Hct (39.0-53.0) % MCV (80.0-100.0) fL MCH (25.0-35.0) pg MCHC (31.0-37.0) g/dL RDW (11.5-15.5) % Plt Count (150-450) k/uL MPV Neutrophils % % Lymphocytes % % Monocytes % % Eosinophils % % Basophils % % Neutrophils # (1.3-7.7) k/uL Lymphocytes # (1.0-4.8) k/uL Monocytes # (0-1.0) k/uL Eosinophils # (0-0.7) k/uL Basophils # (0-0.2) k/uL Anisocytosis PT (9.0-12.0) sec INR (<1.2) APTT (22.0-30.0) sec Sodium (137-145) mmol/L Potassium (3.5-5.1) mmol/L Chloride (98-107) mmol/L Carbon Dioxide (22-30) mmol/L Anion Gap mmol/L BUN (9-20) mg/dL Creatinine (0.66-1.25) mg/dL Est GFR (CKD-EPI)AfAm (>60 ml/min/1.73 sqM) Est GFR (CKD-EPI)NonAf (>60 ml/min/1.73 sqM) Glucose (74-99) mg/dL Plasma Lactic Acid Ye 0.8 (0.7-2.0) mmol/L Calcium (8.4-10.2) mg/dL Total Bilirubin (0.2-1.3) mg/dL AST (17-59) U/L ALT (4-49) U/L Alkaline Phosphatase (38-126) U/L Total Protein (6.3-8.2) g/dL Albumin (3.5-5.0) g/dL Urine Color Red Urine Appearance Cloudy (Clear) Urine pH 8.0 (5.0-8.0) Ur Specific [place] 1.015 (1.001-1.035) Urine Protein 2+ H (Negative) Urine Glucose (UA) Negative (Negative) Urine Ketones Negative (Negative) Urine Blood Large H (Negative) Urine Nitrite Negative (Negative) Urine Bilirubin Negative (Negative) Urine Urobilinogen <2.0 (<2.0) mg/dL Ur Leukocyte Esterase Small H (Negative) Urine RBC >182 H (0-5) /hpf Urine WBC 74 H (0-5) /hpf Disposition Clinical Impression: Hematuria, Abnormal urinalysis Disposition: HOME SELF-CARE Condition: Stable Instructions (If sedation given, give patient instructions): Hematuria (ED) Additional Instructions: You will be started on antibiotics. Follow up with the urologist at your scheduled appointment tomorrow. Return for any new or worsening symptoms Prescriptions: Levofloxacin [Levaquin] 750 mg PO DAILY 1 Days #7 tab Is patient prescribed a controlled substance at d/c from ED?: No Referrals: Lobo Elizabeth MD [Primary Care Provider] - 1-2 days Lon Ragsdale MD [STAFF PHYSICIAN] - 1-2 days Time of Disposition: 21:09
[2023-02-10 21:31] VITALS: BP 165/84; PULSE 85; TEMP 97.6
== END 2023-02-10 21:27 | disposition home or self-care (01) ==
LOC: EC 17:51
DX: N13.30 Unspecified hydronephrosis (principal); E78.5 Hyperlipidemia, unspecified; I10 Essential (primary) hypertension; J44.9 Chronic obstructive pulmonary disease, unspecified; M19.90 Unspecified osteoarthritis, unspecified site; F41.9 Anxiety disorder, unspecified; F32.A Depression, unspecified; Z79.51 Long term (current) use of inhaled steroids; Z79.899 Other long term (current) drug therapy; Z87.891 Personal history of nicotine dependence
CPT/HCPCS: 36415; 80053; 83605; 85025; 85610; 85730; 81001; 76770; 99285; 96374; J0696; 87086